=== PATIENT | male | born 1945 | race Caucasian/White ===

== ENCOUNTER → 2016-10-18 | Outpatient (REF) | payer MEDICARE ==
[~2016-10-18] MED LIST: *BLDWK8; /PANT40TA; ALTACE5 PO; ASPI81TA3; AUG875 PO; BABY81CH; CEF; CEFT500T; CIPR250T3; COLA100C2; DITROPAN PO; DITROPAXL5 PO; DOXYCYC100 PO; DRISDOL50 PO; FLAGYL500 PO; GLUC1000; GLUCCOSEAC TOPICAL; GLUCOPH500 PO; GLUCOPH850 PO; HCTZ25 PO; HYDROCHL12 PO; LISI40TA; LISINOPR40 PO; METFORM100 PO; MONOPRIL10; MONOPRIL40 PO; PAXIL10 PO; PROS5TAB; SPORANOX 2 CAPS BID; TESSALO100 PO; VIAGRA100; VICO5TAB; VITAMIN D50000 UNT; [UNRECOGNIZED DRUG - CODE] TOPICAL; [UNRECOGNIZED DRUG - REMARK]
[2016-10-18 12:08] LABS: INR 1.86
[2016-10-18 13:20] LABS: ALBUMIN 4.2 GM/DL (3.2-5.2); ALBUMIN/GLOBULIN RATIO 1.11 (1.00-1.93); ALKALINE PHOSPHATASE 71 U/L (45-117); ALT/SGPT 68 U/L (12-78); ANION GAP 7 MEQ/L (8-16); AST/SGOT 38 U/L (15-37); BILIRUBIN,TOTAL 0.6 MG/DL (0.2-1.0); BLOOD UREA NITROGEN 26 MG/DL (7-18); CALCIUM LEVEL 9.7 MG/DL (8.8-10.2); CARBON DIOXIDE LEVEL 30 MEQ/L (21-32); CHLORIDE LEVEL 100 MEQ/L (98-107); CREATININE FOR GFR 1.13 MG/DL (0.70-1.30); GLOMERULAR FILTRATION RATE > 60.0 (>42); GLUCOSE, FASTING 105 MG/DL (83-110); POTASSIUM SERUM 4.7 MEQ/L (3.5-5.1); SODIUM LEVEL 137 MEQ/L (136-145)
== END ==
LOC: M SFHCPLAZ 08:46
PROVIDERS: ATTEND Nurse Practitioner Family
DX: E11.9 Type 2 diabetes mellitus without complications (principal)

== ENCOUNTER → 2017-02-19 | Outpatient (REF) | payer MEDICARE ==
[~2017-02-19] MED LIST changes: +ALPHTAB PO; +ASPI1TAB PO; +ASPI81TAEC PO; +CALC500T49 PO; +CALC600T68 PO; +COUM10TA PO; +COUM7.5T PO; +DOCU100C16 PO; +LISI-538 PO; +METF-415 PO; +MIRA3350 PO; +MIRA33504 PO; +MOME50SP; +TRAM50TA2 PO; +VITA200016 PO; +VITA500C24 PO; +WARF-21 PO
[2017-02-19 10:59] LABS: INR 2.07
[2017-02-19 12:43] LABS: ALBUMIN 4.2 GM/DL (3.2-5.2); ALKALINE PHOSPHATASE 110 U/L (45-117); ALT/SGPT 133 U/L (12-78); ANION GAP 7 MEQ/L (8-16); AST/SGOT 64 U/L (15-37); BILIRUBIN,TOTAL 0.7 MG/DL (0.2-1.0); BLOOD UREA NITROGEN 20 MG/DL (7-18); CALCIUM LEVEL 9.6 MG/DL (8.8-10.2); CARBON DIOXIDE LEVEL 30 MEQ/L (21-32); CHLORIDE LEVEL 102 MEQ/L (98-107); CHOLESTEROL LEVEL 189 MG/DL (<200); CREATININE FOR GFR 1.04 MG/DL (0.70-1.30); GLOMERULAR FILTRATION RATE > 60.0 (>42); GLUCOSE, FASTING 105 MG/DL (83-110); POTASSIUM SERUM 4.5 MEQ/L (3.5-5.1); SODIUM LEVEL 139 MEQ/L (136-145); TOTAL PROTEIN 8.4 GM/DL (6.4-8.2); TRIGLYCERIDES LEVEL 91 MG/DL (<150)
== END ==
LOC: M SFHCPLAZ 08:00
PROVIDERS: ATTEND Family Medicine
DX: E11.9 Type 2 diabetes mellitus without complications (principal); E78.5 Hyperlipidemia, unspecified; Z51.81 Encounter for therapeutic drug level monitoring; Z79.899 Other long term (current) drug therapy

== ENCOUNTER 2017-02-26 16:04 | Inpatient (IN) | payer MEDICARE ==
[~2017-02-26] VITALS: Ht 172.7 cm; Wt 78.3 kg
[~2017-02-26 16:04] MED LIST changes: -ALPHTAB PO; -ASPI1TAB PO; -ASPI81TAEC PO; -CALC500T49 PO; -CALC600T68 PO; -COUM10TA PO; -COUM7.5T PO; -DOCU100C16 PO; -LISI-538 PO; -METF-415 PO; -MIRA3350 PO; -MIRA33504 PO; -MOME50SP; -TRAM50TA2 PO; -VITA200016 PO; -VITA500C24 PO; -WARF-21 PO
[2017-02-26] MEDS ORDERED: COUM7.5T PO (16:23)
[2017-02-26] MEDS ORDERED: VITA200016 PO (16:23)
[2017-02-26] MEDS ORDERED: LISI-538 PO (16:23)
[2017-02-26] MEDS ORDERED: METF-415 PO (16:23)
[2017-02-26] MEDS ORDERED: COUM10TA PO (16:23)
[2017-02-26] MEDS ORDERED: CALC500T49 PO (16:23)
[2017-02-26] MEDS ORDERED: ALPHTAB PO (16:23)
[2017-02-26] MEDS ORDERED: ASPI1TAB PO (16:23)
[2017-02-26] MEDS ORDERED: MIRA3350 PO (16:23)
[2017-02-26] MEDS ORDERED: VITA500C24 PO (16:23)
[2017-02-26] MEDS ORDERED: MOME50SP (16:23)
[2017-02-26] MEDS ORDERED: ACETAMINOPHEN TAB 650MG DOSE (2X325MG) PO ONE (17:00)
--- NOTE | 2017-02-26 17:27 | REP ---
Right hip two views: There is no fracture or dislocation. Joint space is unremarkable. There is no femoral head deformity. No calcifications. Impression: Negative left hip. Signed by Jeff Moreno MD 02/26/2017 05:15 P
--- NOTE | 2017-02-26 17:49 | REP ---
AP PELVIS, COMPLETE: 02/26/2017. Comparison: CT pelvis 03/31/2009. Left hip series this date. Clinical history: Left buttock and hip pain. Findings: Pelvic ring is intact. The iliac wings, sacral ala and foramina, SI joints and pubic symphysis were unremarkable. Pubic rami are symmetric. The hip joint spaces appear grossly symmetric. There are some degenerative changes, greater at the acetabular roof on the right than left. No gross evidence of a hip fracture. There are degenerative changes with endplate spurs throughout the lower lumbar spine. Impression: 1. Minor degenerative changes lower lumbar spine and bilateral hips, right greater than left. There is no visible fracture, pelvis or hips. Signed by Elkin Duong MD 02/27/2017 08:43 A
--- NOTE | 2017-02-26 17:51 | REP ---
LUMBOSACRAL SPINE COMPLETE: 02/26/2017. Comparison: MRI lumbar spine 06/13/2004. Clinical history: left buttock and hip pain. Five views provided. Pedicles, spinous and transverse processes are intact. There are marginal osteophytes throughout the lumbar and visible lower thoracic spine. There is some facet arthropathy at the L4-5 and L5, S1, less at the levels above. There is no spondylolysis or spondylolisthesis. Bridging syndesmophytes seen on the lateral view. Minor anterior wedging at L1 with smooth bridging osteophyte. This is not acute compression. Vascular calcifications of the aorta without aneurysm. Loss of lordosis noted. Impression: 1. Diffuse degenerative disc disease with bridging osteophytes and syndesmophytes and some minor old wedging L1 superior endplate with flowing or bridging osteophytes indicating this is not an acute compression. 2. Loss of lordosis may reflect spasm or positioning. There is facet arthropathy L4-5, L5-S1. 3. No destructive lesions or other acute finding. Signed by Elkin Duong MD 02/27/2017 08:43 A
[2017-02-26 19:24] LABS: MEAN CORPUSCULAR HEMOGLOBIN 31.8 pg (27.0-33.0); MEAN CORPUSCULAR HGB CONC 34.5 g/dl (32.0-36.5); MEAN CORPUSCULAR VOLUME 92.3 fl (80.0-96.0); RED CELL DISTRIBUTION WIDTH 12.9 % (11.5-14.5); WHITE BLOOD COUNT 5.9 K/mm3 (4.0-10.0)
[2017-02-26 19:47] LABS: BASOPHILS 1 % (0-4)
[2017-02-26 19:50] LABS: ANION GAP 6 MEQ/L (8-16); BLOOD UREA NITROGEN 18 MG/DL (7-18); CALCIUM LEVEL 9.5 MG/DL (8.8-10.2); CARBON DIOXIDE LEVEL 31 MEQ/L (21-32); CHLORIDE LEVEL 102 MEQ/L (98-107); CREATININE FOR GFR 0.95 MG/DL (0.70-1.30); GLOMERULAR FILTRATION RATE > 60.0 (>42); GLUCOSE, FASTING 84 MG/DL (83-110); POTASSIUM SERUM 4.1 MEQ/L (3.5-5.1); SODIUM LEVEL 139 MEQ/L (136-145)
[2017-02-26] MEDS ORDERED: DOCU100C16 PO (20:38)
[2017-02-26] MEDS ORDERED: WARF-21 PO (20:38)
[2017-02-26] MEDS ORDERED: ASPI81TAEC PO (20:38)
[2017-02-26] MEDS ORDERED: MIRA33504 PO (20:38)
[2017-02-26] MEDS ORDERED: CALC600T68 PO (20:38)
[2017-02-26] MEDS ORDERED: raNITIdine SYRUP 150 MG/10 ML UDC GT SCH (21:00)
[2017-02-26] MEDS ORDERED: IBUPROFEN 400 MG TAB PO PRN (21:15)
[2017-02-26 22:15] VITALS: BP 132/68
[2017-02-26] MEDS ORDERED: MIRALAX *UNIT DOSE* 17GM PACKET PO PRN (22:45)
[2017-02-26] MEDS ORDERED: FLUTICASONE PROP 0.05% NASAL SPRAY 16 GM (FLONASE) PRN (22:45)
[2017-02-26 23:27] LABS: INR 2.09
[2017-02-26] MEDS: ASPIRIN 81 MG ENTERIC TAB PO SCH (23:58)
[2017-02-26] MEDS: DOCUSATE SODIUM 100 MG CAP PO SCH (23:58)
[2017-02-26] MEDS: WARFARIN SOD 7.5 MG TAB PO SCH (23:58)
[2017-02-26] MEDS: VITAMIN D 1,000 INTERNATIONAL UNITS TABLET PO SCH (23:59)
[2017-02-27 06:00] VITALS: BP 129/69
[2017-02-27 07:08] LABS: BASO % 0.7 % (0.0-1.0); EOS # 0.1 K/mm3 (0.0-0.50); EOS % 1.8 % (0.0-3.0); LARGE UNSTAINED CELL # 0.1 K/mm3 (0.0-0.4); LARGE UNSTAINED CELL % 2.3 % (0.0-4.0); LYMPH # 1.4 K/mm3 (1.5-4.5); LYMPH % 28.3 % (24.0-44.0); MEAN CORPUSCULAR HEMOGLOBIN 31.5 pg (27.0-33.0); MEAN CORPUSCULAR HGB CONC 34.6 g/dl (32.0-36.5); MEAN CORPUSCULAR VOLUME 91.3 fl (80.0-96.0); MONO # 0.3 K/mm3 (0.0-0.8); MONO % 6.8 % (0.0-5.0); NEUTROPHILS # 2.7 K/mm3 (1.8-7.7); NEUTROPHILS % 60.1 % (36.0-66.0); PLATELET COUNT, AUTOMATED 264 k/mm3 (150-450); RED CELL DISTRIBUTION WIDTH 13.2 % (11.5-14.5); WHITE BLOOD COUNT 4.5 K/mm3 (4.0-10.0)
[2017-02-27 07:13] LABS: INR 2.05
[2017-02-27 07:25] LABS: ALBUMIN 3.5 GM/DL (3.2-5.2); ALBUMIN/GLOBULIN RATIO 0.88 (1.00-1.93); ALKALINE PHOSPHATASE 95 U/L (45-117); ALT/SGPT 108 U/L (12-78); ANION GAP 6 MEQ/L (8-16); AST/SGOT 54 U/L (15-37); BILIRUBIN,TOTAL 0.6 MG/DL (0.2-1.0); BLOOD UREA NITROGEN 22 MG/DL (7-18); CALCIUM LEVEL 8.9 MG/DL (8.8-10.2); CARBON DIOXIDE LEVEL 30 MEQ/L (21-32); CHLORIDE LEVEL 105 MEQ/L (98-107); CREATININE FOR GFR 0.97 MG/DL (0.70-1.30); GLOMERULAR FILTRATION RATE > 60.0 (>42); GLUCOSE, FASTING 112 MG/DL (83-110); POTASSIUM SERUM 4.7 MEQ/L (3.5-5.1); SODIUM LEVEL 141 MEQ/L (136-145); TOTAL PROTEIN 7.5 GM/DL (6.4-8.2)
[2017-02-27] MEDS ORDERED: traMADol 50 MG TAB PO PRN (08:30)
[2017-02-27] MEDS ORDERED: CALCIUM/VITAMIN D 500 MG TAB PO SCH (09:00)
[2017-02-27] MEDS: DOCUSATE SODIUM 100 MG CAP PO SCH ×2 (09:21→20:49)
[2017-02-27] MEDS: LISINOPRIL 20 MG TAB PO SCH (09:21)
[2017-02-27] MEDS: ASCORBIC ACID 500 MG TAB PO SCH (09:22)
[2017-02-27] MEDS ORDERED: ACETAMINOPHEN TAB 650MG DOSE (2X325MG) PO ONE (10:15)
[2017-02-27] MEDS: CALCIUM/VITAMIN D 500 MG TAB PO SCH (10:37)
--- NOTE | 2017-02-27 12:58 | IPNPDOC ---
Subjective Date Seen The patient was seen on 02/27/17. Subjective Chief Complaint/HPI The patient is a 71-year-old male admitted with a reason for visit of Hip Pain. Constitutional: Denies: Malaise, Night Sweats ENT: Denies: Head Aches Pulmonary: Denies: Dyspnea, Cough, Pleuritic Chest Pain Cardiovascular: Denies: Palpitations, Orthopnea Gastrointestinal: Denies: Nausea, Vomiting, Abdominal Pain Genitourinary: Denies: Frequency Neurological: Reports: Other Symptoms (chronic weakness and paresthesias associated with MS (diagnosed in late )) Objective Physical Examination General Exam: Positive: Alert, Cooperative Eye Exam: Positive: PERRLA Chest Exam: Positive: Clear to auscultation, Normal air movement Heart Exam: Positive: Rate Normal, Regular Rhythm Extremity Exam: Positive: Other (tender to palpation posterio left greater trochanter. hip flexion with knee flexed and rotation are tolerated w/o difficulty as is abduction. adduction across midline triggers mild discomfort in tender area. strength reduced.) Psych Exam: Positive: Mental status NL, Mood NL Assessment /Plan Problems (1) Hip pain Status: Acute Response to Treatment: Stable Problem Specific Plan: Consult Specialist Problem Text: request MRI of LS spine, consult Ortho; increase analgesic. not a candidate for NSAID due to anticoagulant use. 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 Response to Treatment: Stable Problem Specific Plan: Monitor Clinically (4) Diabetes mellitus Status: Chronic Response to Treatment: Stable Problem Specific Plan: Monitor Clinically (5) Multiple sclerosis Status: Chronic Response to Treatment: Stable Problem Specific Plan: Monitor Clinically Plan/VTE VTE Prophylaxis Ordered?: Yes Plan Medications: Increase Pain Meds Diagnostics: MRI VS, I&O, 24H, Fishbone Vital Signs/I&O Vital Signs Date Time Temp Pulse Resp B/P (MAP) Pulse Ox O2 Delivery O2 Flow Rate FiO2 02/27/17 09:52 18 02/27/17 09:21 129/69 02/27/17 06:00 97.7 63 98 Room Air I&O- Last 24 Hours up to 6 AM 02/27/17 06:00 Intake Total 120 ml Balance 120 ml Laboratory Data 24H LABS Laboratory Tests 2 02/26/17 19:01: Neutrophils 62, Lymphocytes (Manual) 27, Monocytes (Manual) 3, Basophils (Manual ) 1, Atypical Lymphocytes 7H, Platelet Estimate NORMAL, Red Blood Cell Morphology NORMAL, Anion Gap 6L, Glomerular Filtration Rate > 60.0, Blood Urea Nitrogen 18, Creatinine 0.95, Sodium Level 139, Potassium Level 4.1, Chloride Level 102, Carbon Dioxide Level 31, Calcium Level 9.5 02/26/17 23:08: Prothrombin Time 24.2H, Prothromb Time International Ratio 2.09 02/27/17 06:46: Anion Gap 6L, Glomerular Filtration Rate > 60.0, Blood Urea Nitrogen 22H, Creatinine 0.97, Sodium Level 141, Potassium Level 4.7, Chloride Level 105, Carbon Dioxide Level 30, Calcium Level 8.9, Prothrombin Time 23.8H, Prothromb Time International Ratio 2.05, White Blood Count 4.5, Red Blood Count 4.82, Hemoglobin 15.2, Hematocrit 44.0, Mean Corpuscular Volume 91.3, Mean Corpuscular Hemoglobin 31.5, Mean Corpuscular Hemoglobin Concent 34.6, Red Cell Distribution Width 13.2, Platelet Count 264, Neutrophils (%) (Auto) 60.1, Lymphocytes (%) (Auto) 28.3, Monocytes (%) (Auto) 6.8H, Eosinophils (%) (Auto) 1.8, Basophils (%) (Auto) 0.7, Neutrophils # (Auto) 2.7, Lymphocytes # (Auto) 1.4L, Monocytes # (Auto) 0.3, Eosinophils # (Auto) 0.1, Basophils # (Auto) 0.0, Large Unclassified Cells % 2.3, Large Unclassified Cells # 0.1, Aspartate Amino Transf (AST/SGOT) 54H, Alanine Aminotransferase (ALT/SGPT) 108H, Alkaline Phosphatase 95, Total Bilirubin 0.6, Total Protein 7.5, Albumin 3.5, Albumin/ Globulin Ratio 0.88L CBC/BMP Laboratory Tests 02/26/17 19:01 Calcium Level 9.5 02/27/17 06:46 Calcium Level 8.9, Red Blood Count 4.82, Mean Corpuscular Volume 91.3, Mean Corpuscular Hemoglobin 31.5, Mean Corpuscular Hemoglobin Concent 34.6, Red Cell Distribution Width 13.2, Neutrophils (%) (Auto) 60.1, Lymphocytes (%) (Auto) 28.3, Monocytes (%) (Auto) 6.8 H, Eosinophils (%) (Auto) 1.8, Basophils (%) ( Auto) 0.7, Neutrophils # (Auto) 2.7, Lymphocytes # (Auto) 1.4 L, Monocytes # ( Auto) 0.3, Eosinophils # (Auto) 0.1, Basophils # (Auto) 0.0, Aspartate Amino Transf (AST/SGOT) 54 H, Alanine Aminotransferase (ALT/SGPT) 108 H, Alkaline Phosphatase 95, Total Bilirubin 0.6, Total Protein 7.5, Albumin 3.5 Damien Garvey MD Feb 27, 2017 12:58
--- NOTE | 2017-02-27 13:16 | HPE ---
DATE OF ADMISSION: 02/26/2017 Most of the history is obtained from the patient who is a good historian and his family is at bedside. CHIEF COMPLAINT: This is a 71-year-old male who comes in complaining of severe 2 days of left-sided hip pain, which is new and slowly worsening. The patient is not able to walk today. Previously was able to walk with a walker and now only able to use his wheelchair. The patient denies any back pain. He has not had a previous surgery there. He stated the pain is sharp and mainly when he tries to walk, at rest is not present and can be as severe as 9/10. He denies any swelling or warmth in that area. Denies any trauma to that area or any fall. He has not had this in the past and has no history of previous gout or any other rheumatological disorder. The patient states in the past he was told that he has osteoarthritis in both hips. He denies any pain in the spine area or any swelling there as well. Past medical history is significant for multiple sclerosis, coronary artery disease, diabetes mellitus type 2, hypertension, deep venous thrombosis (DVT) in 2008 for which she takes Coumadin, and non-alcohol steatohepatitis. Current medications include: - metformin 1000 every evening - lipoic acid 200 mg twice daily He also takes: - vitamin C 500 mg daily - aspirin 81 mg daily - calcium and vitamin D combination pill one tablet daily - Colace 100 mg twice daily - lisinopril 20 mg daily - MiraLAX 17 grams once daily - vitamin D 2000 units every evening - Coumadin 7.5 mg six times weekly and 11.25 mg once weekly ALLERGIES: He has an allergy to STATINS, which he says makes him extremely weak, as well as PRILOSEC, which does the same thing. SOCIAL HISTORY: He denies any tobacco, ethanol or drug use. Previous surgeries include TURP. Family history is significant for diabetes in his sister and brothers as well. REVIEW OF SYSTEMS: Other than the above mentioned, he denies any other constitutional symptoms or any cardiopulmonary, digestive, endocrine, hematological, psychiatric, neurological, musculoskeletal or dermatological disease. PHYSICAL EXAMINATION: Pulse is 86. Blood pressure 133/79. Breathing at 16. Afebrile. GENERAL APPEARANCE: Well groomed, 71-year-old white male, currently laying in bed, in mild distress and pain. PSYCHIATRIC EXAM: Alert, oriented times two, with normal affect. SKIN EXAM: Intact rash is noted. The hip area is clean without any erythema or swelling. EYE EXAM: Pupils equal round and reactive to light, without icterus. OROPHARYNGEAL EXAM: No oropharyngeal erythema. Dentition in good condition. NECK EXAM: No thyromegaly. Trachea midline. Neck is supple. LYMPHATICS EXAM: No cervical or axillary lymphadenopathy. CARDIAC EXAM: Regular rate and rhythm. No rubs, murmurs or gallops. No jugular venous distention (JVD). No edema. RESPIRATORY EXAM: Clear to auscultation bilaterally with good effort. ABDOMINAL EXAM: Nondistended. Nontender. No hepatomegaly or masses palpated . PERIPHERAL EXAM: The patient does have bilateral leg braces on the area of the left hip. The patient has no swelling or erythema or tenderness. He does point to tenderness in the left gluteal area above gluteal muscle there. On labs, the patient's white cell count is 6,000, hematocrit of 48, platelet count of 311 with an MCV of 930, RDW of 13. Chemistry is essentially normal with a BUN of 18, creatinine of 0.95. The patient had imaging done. Lumbar spine x-ray shows: 1. Diffuse degenerative disc disease with bridging osteophytes and some minor old wedging in L1 superior endplate with flowing or bridging osteophytes indicating this is not an acute compression. 2. Loss of lordosis, which may reflect spasm or positioning, and there is facet arthropathy in L4 and L5 as well as L5-S1. There are no destructive lesions or other acute findings. The patient also had a hip x-ray, which is described as negative, and a pelvic x-ray, which shows minor degenerative changes of the lower lumbar spine and bilateral hips, right greater than left. No acute fractures. ASSESSMENT: This is a 71-year-old male now presenting with severe pain. By physical exam and history, the patient likely has severe sciatica but is not able to now ambulate around the home as he used to. I do agree at this time on admission to the observation unit for pain control as well as physical and occupational therapy evaluation to assist whether the patient may benefit from additional therapy. PROBLEMS: 1. Severe left-sided hip pain: Agree with admission to the medical-surgical unit, will keep the patient on observation at this time, physical and occupational therapy will be obtained, will place the patient on ibuprofen every 6 hours as needed for pain and put him on proton pump inhibitor (PPI) prophylaxis at this time as well, the patient's pain is likely severe sciatica on the left side possibly secondary to degenerative disc disease in spine, will reassess in the a.m. 2. Multiple sclerosis: The patient will have a physical therapy evaluation here and will continue his usual outpatient medicine. 3. Diabetes mellitus type 2: The patient will continue his usual medication regimen. 4. Hypertension: Currently stable Will continue to monitor. 5. Deep venous thrombosis: The patient is usually on Coumadin therapy. Last time was checked was normal. This was earlier in the month but will check a repeat international normalized ratio (INR) in the a.m. at this time. For DVT prophylaxis, the patient currently is already taking Coumadin as blood thinner and diet will be a diabetic diet.
[2017-02-27] MEDS: ACETAMINOPHEN TAB 650MG DOSE (2X325MG) PO PRN ×2 (16:42→20:49)
[2017-02-27] MEDS: VITAMIN D 1,000 INTERNATIONAL UNITS TABLET PO SCH (16:42)
[2017-02-27] MEDS: WARFARIN SOD 7.5 MG TAB PO SCH (16:43)
[2017-02-27] MEDS: traMADol 50 MG TAB PO PRN ×2 (16:43→20:48)
[2017-02-27] MEDS: ASPIRIN 81 MG ENTERIC TAB PO SCH (16:43)
[2017-02-27 22:00] VITALS: BP 135/73
[2017-02-28 06:00] VITALS: BP 118/75
[2017-02-28] MEDS: traMADol 50 MG TAB PO PRN ×3 (06:00→21:16)
[2017-02-28] MEDS: ACETAMINOPHEN TAB 650MG DOSE (2X325MG) PO PRN ×3 (06:01→21:16)
[2017-02-28 07:02] LABS: TOTAL PROTEIN 7.4 GM/DL (6.4-8.2)
--- NOTE | 2017-02-28 09:12 | IPNPDOC ---
Subjective Date Seen The patient was seen on 02/28/17. Subjective Chief Complaint/HPI The patient is a 71-year-old male admitted with a reason for visit of Hip Pain. Constitutional: Denies: Malaise ENT: Denies: Head Aches, Dysphagia Pulmonary: Denies: Dyspnea, Cough Cardiovascular: Denies: Chest Pain, Palpitations, Orthopnea, Paroxysmal Noc. Dyspnea Gastrointestinal: Denies: Nausea, Vomiting Genitourinary: Denies: Dysuria Hematologic: Denies: Petecchia Musculoskeletal: Reports: Leg Pain (pain is better, essentially resolved. He credits Anointing by .) Neurological: Denies: Weakness, Numbness Objective Physical Examination General Exam: Positive: Alert, Cooperative, No Acute Distress Eye Exam: Positive: PERRLA Neck Exam: Positive: Supple Chest Exam: Positive: Clear to auscultation, Normal air movement Heart Exam: Positive: Rate Normal, Regular Rhythm Extremity Exam: Negative: Tenderness Psych Exam: Positive: Mental status NL, Mood NL Assessment /Plan Problems (1) Hip pain Status: Acute Response to Treatment: Stable Problem Specific Plan: Consult Specialist Problem Text: 02/28/17: awaiting MRI of hip and LS spine. Dr. Brice aware and will see patient after imaging completed. Pain free at this point, even when up. request MRI of LS spine, consult Ortho; increase analgesic. not a candidate for NSAID due to anticoagulant use. 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 likely would benefit from home PT) VS, I&O, 24H, Fishbone Vital Signs/I&O Vital Signs Date Time Temp Pulse Resp B/P (MAP) Pulse Ox O2 Delivery O2 Flow Rate FiO2 02/28/17 06:30 18 02/28/17 06:00 97.9 77 118/75 (89) 96 Room Air I&O- Last 24 Hours up to 6 AM 02/28/17 06:00 Intake Total 1380 ml Output Total 1600 ml Balance -220 ml Laboratory Data 24H LABS Laboratory Tests 2 02/28/17 06:26: Total Protein (PEP) 7.4 Damien Garvey MD Feb 28, 2017 09:12
[2017-02-28] MEDS: CALCIUM/VITAMIN D 500 MG TAB PO SCH (10:19)
[2017-02-28] MEDS: LISINOPRIL 20 MG TAB PO SCH (10:19)
[2017-02-28] MEDS: DOCUSATE SODIUM 100 MG CAP PO SCH ×2 (10:19→21:15)
[2017-02-28] MEDS: ASCORBIC ACID 500 MG TAB PO SCH (10:19)
[2017-02-28 14:00] VITALS: BP 120/73
--- NOTE | 2017-02-28 14:37 | REP ---
MRI LUMBAR SPINE WITHOUT CONTRAST: HISTORY: Left hip and radicular pain and back pain. Comparison radiographs of the lumbar spine are from 02/26/2017. There is a comparison MRI study available on this patient from 06/13/2004. TECHNIQUE: Sagittal and axial T1- and T2-weighted scans are acquired in the usual fashion with and without fat saturation. Sequences include spin echo, turbo spin-echo, and STIR imaging sequences. MRI FINDINGS: There is an old mild wedge compression deformity at the L1 vertebral body. This is a new finding from the 2004 prior study, but normal T1- and T2-weighted signal intensity indicate an old healed compression. There is also slight collapse of the superior endplate of L4, but this is unchanged from 2004 and is also old. There is fairly advanced diffuse degenerative disc disease throughout the visualized lower thoracic and all of the lumbar disc levels. There is some straightening of the normal lumbar lordosis. Normal caliber aorta is seen. The conus medullaris is normal in position and appearance at T12-L1. There is a Schmorl node at the inferior endplate of L2. This is unchanged from 2004. At L1-2, axial and sagittal images show no significant abnormality. At L2-3, there is minimal diffuse disc bulging effacing the ventral subarachnoid space. No central canal stenosis or neural foraminal narrowing is seen, however. At L3-4, there is also central diffuse disc bulging. This indents the ventral subarachnoid space. Canal size at L3-4 is borderline. There is mild ligamentum flavum and facet hypertrophy. At L4-5, there is moderate diffuse disc bulging. There is mild central canal stenosis due to disc bulging, developmentally short pedicles, and mild facet hypertrophy. There is moderate left and mild right-sided neural foraminal narrowing due to facet hypertrophy and disc bulging. At L5-S1, there is mild facet hypertrophy bilaterally. Mild central disc bulging is seen. No neural foraminal lesion or central canal stenosis seen. IMPRESSION: Degenerative spondylosis changes. Mild central canal stenosis and bilateral neural foraminal narrowing at L4-5 slightly more prominent than on the prior study but not new. Interval development of a chronic mild wedging deformity at L1. Signed by Carroll Muniz MD 02/28/2017 04:43 P
--- NOTE | 2017-02-28 14:41 | REP ---
MRI LEFT HIP: TECHNIQUE: Coronal T1, STIR through the pelvis, T2 fat sat, left hip all three planes, axial oblique proton density fat sat left hip. The visualized osseous structures demonstrate normal marrow signal. There is no bone marrow edema or occult fracture. There is no evidence of avascular necrosis. There does appear to be a tear of the anterior-superior aspect of the left hip labrum. There is no paralabral cyst. There is no joint effusion. No abnormal signal is seen in the surrounding soft tissues. The visualized intrapelvic structures are unremarkable. However, there does appear to be a large left inguinal hernia containing bowel extending toward the scrotum. IMPRESSION: No occult fracture or avascular necrosis. There does appear to be a tear of the anterior-superior aspect of the left hip labrum. In addition, there is a large left inguinal hernia containing bowel loops. Signed by Jeff Lema MD 02/28/2017 04:47 P
[2017-02-28] MEDS: ASPIRIN 81 MG ENTERIC TAB PO SCH (17:08)
[2017-02-28] MEDS: VITAMIN D 1,000 INTERNATIONAL UNITS TABLET PO SCH (17:08)
[2017-02-28] MEDS: WARFARIN SOD 7.5 MG TAB PO SCH (17:09)
[2017-02-28 22:00] VITALS: BP 118/69
[2017-03-01 06:00] VITALS: BP 125/75
[2017-03-01 06:40] LABS: MEAN CORPUSCULAR HEMOGLOBIN 31.6 pg (27.0-33.0); MEAN CORPUSCULAR HGB CONC 34.1 g/dl (32.0-36.5); MEAN CORPUSCULAR VOLUME 92.7 fl (80.0-96.0); WHITE BLOOD COUNT 4.7 K/mm3 (4.0-10.0)
[2017-03-01 06:53] LABS: ALBUMIN 3.3 GM/DL (3.2-5.2); ALBUMIN/GLOBULIN RATIO 0.83 (1.00-1.93); ALKALINE PHOSPHATASE 93 U/L (45-117); ALT/SGPT 123 U/L (12-78); ANION GAP 6 MEQ/L (8-16); AST/SGOT 65 U/L (15-37); BILIRUBIN,TOTAL 0.2 MG/DL (0.2-1.0); BLOOD UREA NITROGEN 24 MG/DL (7-18); CALCIUM LEVEL 8.6 MG/DL (8.8-10.2); CARBON DIOXIDE LEVEL 29 MEQ/L (21-32); CHLORIDE LEVEL 106 MEQ/L (98-107); CREATININE FOR GFR 1.07 MG/DL (0.70-1.30); GLOMERULAR FILTRATION RATE > 60.0 (>42); GLUCOSE, FASTING 134 MG/DL (83-110); POTASSIUM SERUM 4.6 MEQ/L (3.5-5.1); SODIUM LEVEL 141 MEQ/L (136-145); TOTAL PROTEIN 7.3 GM/DL (6.4-8.2)
[2017-03-01 08:38] VITALS: BP 125/75
[2017-03-01] MEDS: CALCIUM/VITAMIN D 500 MG TAB PO SCH (08:38)
[2017-03-01] MEDS: DOCUSATE SODIUM 100 MG CAP PO SCH (08:38)
[2017-03-01] MEDS: LISINOPRIL 20 MG TAB PO SCH (08:38)
[2017-03-01] MEDS: ASCORBIC ACID 500 MG TAB PO SCH (08:38)
[2017-03-01] MEDS: traMADol 50 MG TAB PO PRN ×2 (11:14→16:36)
[2017-03-01] MEDS: ACETAMINOPHEN TAB 650MG DOSE (2X325MG) PO PRN ×3 (11:14→17:48)
[2017-03-01 14:00] VITALS: BP 133/77
[2017-03-01] MEDS ORDERED: TRAM50TA2 PO (15:21)
[2017-03-01] MEDS ORDERED: WARFARIN SOD 7.5 MG TAB PO SCH (17:00)
[2017-03-03 09:51] LABS: ALBUMIN % 54.9 % (55.8-66.1); GAMMA GLOBULIN % 17.1 % (11.1-18.8)
[2017-03-03 09:52] LABS: ALBUMIN 4.06 GM/DL (3.29-5.55)
--- NOTE | 2017-03-03 16:56 | DSES ---
DATE OF ADMISSION: 02/28/2017 DATE OF DISCHARGE: 03/01/2017 DIAGNOSES: Labral tear of left hip with intractable left hip pain. Multiple sclerosis. Diabetes mellitus. History of arterial embolism and thrombosis of lower extremity. Chronic anticoagulant usage. BRIEF HISTORY AND PHYSICAL: This is a 71-year-old male admitted because of left hip pain which started several days prior and then seemed to get worse, particularly with activity and this was not being relieved with Tylenol or limitation of walking in the home setting. He had a prior history of multiple sclerosis and chronic anticoagulant usage due to thrombosis in his legs. He also is diabetic. He normally sees Michelle Pimentel at [facility] in [place] and had previously seen Dr. Carrero. His initial examination showed a blood pressure of 133/79, pulse 79 and regular. He was alert, oriented, normal affect. He had bilateral leg braces on. He pointed to an area in the left gluteal area as his most highest area of pain. No indication on his admission examination of whether there was any spasticity, pain on range of motion or limitation of range of motion. LABORATORY DATA: He had hemoglobins ranging from 16.5 to 14.9. His white counts remained between 4500 and 5900. He had 62 neutrophils, 27 lymphocytes 3 monocytes, 7 atypical lymphocytes. Chemistry profile remarkable for liver function abnormalities with AST between 54 and 65, ALT of 108 to 123 with alkaline phosphatase normal at 95 and serum protein electrophoresis was pending at the time of discharge. His BUN was 18 on admission, 24 at discharge, creatinine 0.95 on admission and 1.07 at discharge. MRI of his spine showed some degenerative changes of lower lumbar area with L4-5 foraminal narrowing and some lumbar stenosis. Left hip showed a tear of the anterior superior aspect of the left hip labrum. There was also a large left inguinal hernia. COURSE IN THE FACILITY: The patient was admitted to the hospital. Laboratory studies were obtained. His initial hip x-rays were negative and lumbar spine x-rays showing no destructive changes but diffuse degenerative disc disease with bridging osteophytes and syndesmophytes. He was kept on his usual medications including his warfarin. His INR was 2.09 and 2.05. He was given some tramadol for pain. Initially he had pain as high as 7, subsequently down to 3. He seemed quite comfortable on 02/28/2017 and he was seen on 03/01/2017 and he reported that he did have some discomfort on ambulation, but was quite comfortable at rest and pain seemed to be readily relieved with tramadol. His discharge examination showed that he had some mild dysarthria and I thought he had spasticity in his legs bilaterally. He seemed to have bilateral positive Babinski signs, right more so than the left. He had good range of motion of both hips without any pain being elicited. His lungs were clear. His heart had a regular rhythm without any murmur, click or gallop. Abdomen was soft and nontender without any masses or organomegaly. Bowel sounds were active. He had really equivocal tenderness of the lateral hip and the anterior hip. There was no calf tenderness. Recommendations were as follows: He is to ambulate with a rolling walker. He is to limit his ambulation for the next week or so. He is continue all his regular medications including the warfarin 11.25 mg of Saturdays and 7.5 mg all other days, Tylenol 650 mg every 4 hours as needed. He was given a prescription for #20 tramadol 50 mg to take one every 4 hours as needed for moderate pain with a maximum daily dose of four, vitamin C 500 mg daily and lisinopril 20 mg daily, calcium with vitamin D 500 mg daily, Flonase one spray both nostrils as needed for nasal congestion, MiraLAX one packet daily for constipation, Colace 100 mg twice a day, aspirin 81 mg daily, vitamin D 2000 units daily. He should follow up in the office with his primary provider, who is Michelle Pimentel. Recommend orthopedic followup if he has continued left hip pain. There was an orthopedic consult discussed while he was in the hospital. The consumer services consultant never did see the patient but did recommend first that the MRIs be obtained. cc: Michelle Pimentel [facility], [facility] . [facility] CENTERHeidi
== END 2017-03-01 17:40 | disposition home or self-care (01) | DRG 538 ==
LOC: M ED 16:04 → UNDOADMOB 19:33 → M ED INP 19:33 → M MS5PR 22:00 → OBSVTOIN 02-28 09:13
PROVIDERS: ADMIT Internal Medicine; ATTEND Family Medicine
DX: S73.192A Other sprain of left hip, initial encounter (principal); G35 Multiple sclerosis; E11.9 Type 2 diabetes mellitus without complications; Z86.718 Personal history of other venous thrombosis and embolism; Z79.01 Long term (current) use of anticoagulants; Z79.84 Long term (current) use of oral hypoglycemic drugs; Z79.82 Long term (current) use of aspirin; Z88.8 Allergy status to other drugs, medicaments and biological substances; I10 Essential (primary) hypertension; K40.90 Unilateral inguinal hernia, without obstruction or gangrene, not specified as recurrent; X58.XXXA Exposure to other specified factors, initial encounter; Y92.9 Unspecified place or not applicable; Y93.9 Activity, unspecified; Y99.9 Unspecified external cause status

== ENCOUNTER → 2017-06-13 | Outpatient (REF) | payer MEDICARE ==
[~2017-06-13] MED LIST changes: +ALPHTAB PO; +ASPI1TAB PO; +ASPI81TAEC PO; +CALC500T49 PO; +CALC600T68 PO; +COUM10TA PO; +COUM7.5T PO; +DOCU100C16 PO; +LISI-538 PO; +METF-415 PO; +MIRA3350 PO; +MIRA33504 PO; +MOME50SP; +TRAM50TA2 PO; +VITA200016 PO; +VITA500C24 PO; +WARF-21 PO
[2017-06-13 11:36] LABS: MEAN CORPUSCULAR HEMOGLOBIN 30.8 pg (27.0-33.0); MEAN CORPUSCULAR HGB CONC 33.1 g/dl (32.0-36.5); MEAN CORPUSCULAR VOLUME 93.1 fl (80.0-96.0); PLATELET COUNT, AUTOMATED 349 10^3/uL (150-450); RED CELL DISTRIBUTION WIDTH 12.5 % (11.5-14.5); WHITE BLOOD COUNT 5.9 10^3/uL (4.0-10.0)
[2017-06-13 12:14] LABS: ALBUMIN 3.9 GM/DL (3.2-5.2); ALBUMIN/GLOBULIN RATIO 0.81 (1.00-1.93); ALKALINE PHOSPHATASE 130 U/L (45-117); ALT/SGPT 123 U/L (12-78); ANION GAP 6 MEQ/L (8-16); AST/SGOT 69 U/L (7-37); BILIRUBIN,TOTAL 0.3 MG/DL (0.2-1.0); BLOOD UREA NITROGEN 28 MG/DL (7-18); CARBON DIOXIDE LEVEL 29 MEQ/L (21-32); CHLORIDE LEVEL 105 MEQ/L (98-107); CREATININE FOR GFR 1.07 MG/DL (0.70-1.30); FREE T4 1.09 NG/DL (0.76-1.46); GLOMERULAR FILTRATION RATE > 60.0 (>42); GLUCOSE, FASTING 112 MG/DL (83-110); SODIUM LEVEL 140 MEQ/L (136-145); TOTAL PROTEIN 8.7 GM/DL (6.4-8.2)
== END ==
LOC: M SHH 11:24
PROVIDERS: ATTEND Family Medicine
DX: E11.9 Type 2 diabetes mellitus without complications (principal); Z79.01 Long term (current) use of anticoagulants; E78.5 Hyperlipidemia, unspecified

== ENCOUNTER → 2017-07-08 | Outpatient (REF) | payer MEDICARE ==
[2017-07-08 17:25] LABS: INR 1.92
== END ==
LOC: M LAB REF 17:07
PROVIDERS: ATTEND Family Medicine
DX: Z79.01 Long term (current) use of anticoagulants (principal)

== ENCOUNTER → 2017-08-06 | Outpatient (REF) | payer MEDICARE ==
[2017-08-06 16:33] LABS: INR 1.75
== END ==
LOC: M SHH 16:28
DX: Z51.81 Encounter for therapeutic drug level monitoring (principal); Z79.01 Long term (current) use of anticoagulants
CPT/HCPCS: 85610

== ENCOUNTER → 2017-09-10 | Outpatient (REF) | payer MEDICARE ==
[2017-09-10 15:42] LABS: INR 1.98; PROTHROMBIN TIME 23.2 SECONDS (12.4-14.5)
== END ==
LOC: M SHH 14:58
DX: Z51.81 Encounter for therapeutic drug level monitoring (principal); Z79.01 Long term (current) use of anticoagulants
CPT/HCPCS: 85610

== ENCOUNTER → 2017-09-16 | Outpatient (REF) | payer MEDICARE ==
[2017-09-16 14:17] LABS: INR 1.93; PROTHROMBIN TIME 22.7 SECONDS (12.4-14.5)
== END ==
LOC: M SHH 13:43
DX: Z51.81 Encounter for therapeutic drug level monitoring (principal); Z79.01 Long term (current) use of anticoagulants
CPT/HCPCS: 85610

== ENCOUNTER → 2017-09-22 | Outpatient (REF) | payer MEDICARE ==
[2017-09-22 13:14] LABS: PROTHROMBIN TIME 26.1 SECONDS (12.4-14.5)
== END ==
LOC: M SHH 12:47
DX: Z79.01 Long term (current) use of anticoagulants (principal)
CPT/HCPCS: 85610

== ENCOUNTER → 2017-10-01 | Outpatient (REF) | payer MEDICARE ==
[2017-10-01 09:58] LABS: HEMATOCRIT 45.9 % (42.0-52.0); HEMOGLOBIN 15.5 g/dl (14.0-18.0); MEAN CORPUSCULAR HEMOGLOBIN 31.3 pg (27.0-33.0); MEAN CORPUSCULAR HGB CONC 33.8 g/dl (32.0-36.5); MEAN CORPUSCULAR VOLUME 92.5 fl (80.0-96.0); PLATELET COUNT, AUTOMATED 328 10^3/uL (150-450); RED BLOOD COUNT 4.96 10^6/uL (4.30-6.10); RED CELL DISTRIBUTION WIDTH 12.6 % (11.5-14.5); WHITE BLOOD COUNT 5.5 10^3/uL (4.0-10.0)
[2017-10-01 10:12] LABS: ALBUMIN 3.8 GM/DL (3.2-5.2); ALBUMIN/GLOBULIN RATIO 0.78 (1.00-1.93); ALKALINE PHOSPHATASE 191 U/L (45-117); ALT/SGPT 132 U/L (12-78); ANION GAP 5 MEQ/L (8-16); AST/SGOT 56 U/L (7-37); BILIRUBIN,TOTAL 0.7 MG/DL (0.2-1.0); BLOOD UREA NITROGEN 21 MG/DL (7-18); CALCIUM LEVEL 9.2 MG/DL (8.8-10.2); CARBON DIOXIDE LEVEL 31 MEQ/L (21-32); CHLORIDE LEVEL 102 MEQ/L (98-107); CHOLESTEROL LEVEL 215 MG/DL (<200); CHOLESTEROL RISK RATIO 3.706 (<5); CREATININE FOR GFR 1.06 MG/DL (0.70-1.30); GLOMERULAR FILTRATION RATE > 60.0 (>42); GLUCOSE, FASTING 111 MG/DL (70-100); HDL CHOLESTEROL 58 MG/DL (>40); LDL CHOLESTEROL 135.4 MG/DL (<100); NON-HDL-C 157 MG/DL; POTASSIUM SERUM 5.1 MEQ/L (3.5-5.1); SODIUM LEVEL 138 MEQ/L (136-145); TOTAL PROTEIN 8.7 GM/DL (6.4-8.2); TRIGLYCERIDES LEVEL 108 MG/DL (<150)
[2017-10-01 10:36] LABS: ESTIMATED AVERAGE GLUCOSE 128 MG/DL (60-110); HEMOGLOBIN A1c 6.1 %
== END ==
LOC: M SHH 09:52
DX: Z79.01 Long term (current) use of anticoagulants (principal); I74.9 Embolism and thrombosis of unspecified artery; E11.9 Type 2 diabetes mellitus without complications; E78.5 Hyperlipidemia, unspecified
CPT/HCPCS: 80053

== ENCOUNTER → 2017-11-21 | Outpatient (REF) | payer MEDICARE ==
[2017-11-21 10:26] LABS: PROTHROMBIN TIME 15.4 SECONDS (12.4-14.5)
== END ==
LOC: M LAB REF 10:04
DX: I74.3 Embolism and thrombosis of arteries of the lower extremities (principal)
CPT/HCPCS: 85610

== ENCOUNTER → 2017-12-02 | Outpatient (REF) | payer MEDICARE ==
[2017-12-02 12:31] LABS: INR 2.09; PROTHROMBIN TIME 24.2 SECONDS (12.4-14.5)
== END ==
LOC: M SFHCADAM 11:34
DX: Z51.81 Encounter for therapeutic drug level monitoring (principal); Z79.01 Long term (current) use of anticoagulants
CPT/HCPCS: 85610

== ENCOUNTER → 2017-12-30 | Outpatient (REF) | payer MEDICARE ==
[2017-12-30 16:43] LABS: INR 1.46; PROTHROMBIN TIME 18.1 SECONDS (12.4-14.5)
== END ==
LOC: M SHH 15:37
DX: Z51.81 Encounter for therapeutic drug level monitoring (principal); Z79.01 Long term (current) use of anticoagulants
CPT/HCPCS: 85610

== ENCOUNTER → 2018-01-07 | Outpatient (REF) | payer MEDICARE ==
[2018-01-07 11:28] LABS: INR 1.94; PROTHROMBIN TIME 22.5 SECONDS (12.1-14.4)
== END ==
LOC: M SHH 10:57
DX: Z79.01 Long term (current) use of anticoagulants (principal)
CPT/HCPCS: 85610

== ENCOUNTER → 2018-02-19 | Outpatient (REF) | payer MEDICARE ==
[2018-02-19 10:58] LABS: INR 2.19; PROTHROMBIN TIME 24.8 SECONDS (12.1-14.4)
[2018-02-19 11:14] LABS: ALBUMIN 3.7 GM/DL (3.2-5.2); ALBUMIN/GLOBULIN RATIO 0.71 (1.00-1.93); ALKALINE PHOSPHATASE 172 U/L (45-117); ALT/SGPT 110 U/L (12-78); ANION GAP 9 MEQ/L (8-16); AST/SGOT 61 U/L (7-37); BILIRUBIN,TOTAL 0.5 MG/DL (0.2-1.0); BLOOD UREA NITROGEN 21 MG/DL (7-18); CALCIUM LEVEL 9.2 MG/DL (8.8-10.2); CARBON DIOXIDE LEVEL 29 MEQ/L (21-32); CHLORIDE LEVEL 100 MEQ/L (98-107); CREATININE FOR GFR 1.02 MG/DL (0.70-1.30); GLOMERULAR FILTRATION RATE > 60.0 (>42); GLUCOSE, FASTING 101 MG/DL (70-100); POTASSIUM SERUM 4.9 MEQ/L (3.5-5.1); SODIUM LEVEL 138 MEQ/L (136-145); TOTAL PROTEIN 8.9 GM/DL (6.4-8.2)
[2018-02-19 11:41] LABS: ESTIMATED AVERAGE GLUCOSE 134 MG/DL (60-110); HEMOGLOBIN A1c 6.3 %
== END ==
LOC: M SHH 10:13
DX: Z79.01 Long term (current) use of anticoagulants (principal); E11.9 Type 2 diabetes mellitus without complications
CPT/HCPCS: 80053

== ENCOUNTER → 2018-04-02 | Outpatient (REF) | payer MEDICARE ==
[2018-04-02 16:05] LABS: INR 1.95; PROTHROMBIN TIME 22.6 SECONDS (12.1-14.4)
== END ==
LOC: M SHH 15:42
DX: Z79.01 Long term (current) use of anticoagulants (principal)
CPT/HCPCS: 85610

== ENCOUNTER → 2018-04-13 | Outpatient (REF) | payer MEDICARE ==
[2018-04-13 13:57] LABS: INR 1.92; PROTHROMBIN TIME 22.3 SECONDS (12.1-14.4)
== END ==
LOC: M SHH 13:08
DX: Z79.01 Long term (current) use of anticoagulants (principal)
CPT/HCPCS: 85610

== ENCOUNTER → 2018-06-26 | Outpatient (REF) | payer MEDICARE ==
[2018-06-26 12:17] LABS: INR 2.33
[2018-06-26 12:42] LABS: ALBUMIN 4.2 GM/DL (3.2-5.2); ALBUMIN/GLOBULIN RATIO 0.98 (1.00-1.93); ALKALINE PHOSPHATASE 132 U/L (45-117); ALT/SGPT 76 U/L (12-78); ANION GAP 8 MEQ/L (8-16); AST/SGOT 45 U/L (7-37); BILIRUBIN,TOTAL 0.7 MG/DL (0.2-1.0); BLOOD UREA NITROGEN 21 MG/DL (7-18); CALCIUM LEVEL 9.7 MG/DL (8.8-10.2); CARBON DIOXIDE LEVEL 30 MEQ/L (21-32); CHLORIDE LEVEL 99 MEQ/L (98-107); CREATININE FOR GFR 0.98 MG/DL (0.70-1.30); GLOMERULAR FILTRATION RATE > 60.0 (>42); GLUCOSE, FASTING 104 MG/DL (70-100); POTASSIUM SERUM 4.4 MEQ/L (3.5-5.1); SODIUM LEVEL 137 MEQ/L (136-145); TOTAL PROTEIN 8.5 GM/DL (6.4-8.2)
[2018-06-26 13:39] LABS: MALB URINE SIEMENS 43.4 MG/L; MAU/CREAT RATIO 39.4 MCG/MG (0.0-30.0)
[2018-06-26 15:48] LABS: ESTIMATED AVERAGE GLUCOSE 146 MG/DL (60-110); HEMOGLOBIN A1c 6.7 %
== END ==
LOC: M SFHCPLAZ 09:37
DX: E11.9 Type 2 diabetes mellitus without complications (principal); I10 Essential (primary) hypertension; K76.0 Fatty (change of) liver, not elsewhere classified; E78.5 Hyperlipidemia, unspecified
CPT/HCPCS: 80053

== ENCOUNTER → 2018-10-19 | Outpatient (REF) | payer MEDICARE ==
[~2018-10-19] MED LIST changes: -/PANT40TA; -ASPI1TAB PO; +ASPI81TA26 PO; +CALC1TAB8 PO; -CALC600T68 PO; +PROT1TAB2
[2018-10-19 10:31] LABS: HEMOGLOBIN A1c 6.1 %
[2018-10-19 10:32] LABS: ALBUMIN 3.7 GM/DL (3.2-5.2); ALT/SGPT 95 U/L (12-78); BILIRUBIN,TOTAL 0.7 MG/DL (0.2-1.0); BLOOD UREA NITROGEN 26 MG/DL (7-18); CARBON DIOXIDE LEVEL 30 MEQ/L (21-32); CHLORIDE LEVEL 105 MEQ/L (98-107); GLOMERULAR FILTRATION RATE > 60.0 (>42); GLUCOSE, FASTING 121 MG/DL (70-100); POTASSIUM SERUM 4.2 MEQ/L (3.5-5.1); SODIUM LEVEL 140 MEQ/L (136-145); TOTAL PROTEIN 7.4 GM/DL (6.4-8.2)
== END ==
LOC: M SFHCPLAZ 08:20
PROVIDERS: ATTEND Nurse Practitioner Family
DX: E11.9 Type 2 diabetes mellitus without complications (principal); I10 Essential (primary) hypertension; K76.0 Fatty (change of) liver, not elsewhere classified; E78.5 Hyperlipidemia, unspecified

== ENCOUNTER → 2019-03-04 | Outpatient (REF) | payer MEDICARE ==
[~2019-03-04] MED LIST changes: +ACET1TAB55 PO; +AMLO5TAB6 PO; +AMMO12CR7 TOP; +AMMO12LO TOP; +AMOX500T2 PO; +AMOX875T2 PO; +BACL10TA2 PO; +BACL1TAB8 PO; +CALC500C16 PO; +CEPH500C PO; +COZA1TAB PO; +CVS1CAP2 PO; +D31000CA4 PO; +ENOX80IN3 SC; +FLEEENE12 PR; +FLOM0.4C39 PO; +FLUTISP NARES; +GLUC500T PO; +IPRA3SP; +KEFL500C17 PO; +LOSA50TA88 PO; +LOVE0.6I2 SC; +METO1TAB87 PO; +NITR100C2 PO; +OYST1TAB PO; +RISATAB3 PO; +SENN-52 PO; +SM N0.65; +Sodium Chloride Nasal Spray; +WARF-23 PO
[2019-03-04 10:31] LABS: ALBUMIN 3.3 GM/DL (3.2-5.2); ALT/SGPT 512 U/L (12-78); BLOOD UREA NITROGEN 23 MG/DL (7-18); CALCIUM LEVEL 9.1 MG/DL (8.8-10.2); CARBON DIOXIDE LEVEL 29 MEQ/L (21-32); CHLORIDE LEVEL 102 MEQ/L (98-107); CHOLESTEROL LEVEL 173 MG/DL (<200); CHOLESTEROL RISK RATIO 4.119 (<5); CREATININE FOR GFR 1.08 MG/DL (0.70-1.30); GLOMERULAR FILTRATION RATE > 60.0 (>42); GLUCOSE, FASTING 114 MG/DL (70-100); HDL CHOLESTEROL 42 MG/DL (>40); LDL CHOLESTEROL 104 MG/DL (<100); NON-HDL-C 131 MG/DL; POTASSIUM SERUM 4.5 MEQ/L (3.5-5.1); SODIUM LEVEL 138 MEQ/L (136-145); TOTAL PROTEIN 8.5 GM/DL (6.4-8.2); TRIGLYCERIDES LEVEL 135 MG/DL (<150)
[2019-03-04 10:39] LABS: MAU/CREAT RATIO 24.1 MCG/MG (0.0-30.0)
[2019-03-04 10:46] LABS: HEMOGLOBIN A1c 6.4 %
== END ==
LOC: M SFHCPLAZ 08:20
PROVIDERS: ATTEND Nurse Practitioner Family
DX: E11.9 Type 2 diabetes mellitus without complications (principal); E78.5 Hyperlipidemia, unspecified

== ENCOUNTER → 2019-03-22 | Outpatient (REF) | payer MEDICARE ==
[~2019-03-22] MED LIST changes: -ACET1TAB55 PO; -AMLO5TAB6 PO; -AMMO12CR7 TOP; -AMMO12LO TOP; -AMOX500T2 PO; -AMOX875T2 PO; -BACL10TA2 PO; -BACL1TAB8 PO; -CALC500C16 PO; -CEPH500C PO; -COZA1TAB PO; -CVS1CAP2 PO; -D31000CA4 PO; -ENOX80IN3 SC; -FLEEENE12 PR; -FLOM0.4C39 PO; -FLUTISP NARES; -GLUC500T PO; -IPRA3SP; -KEFL500C17 PO; -LOSA50TA88 PO; -LOVE0.6I2 SC; -METO1TAB87 PO; -NITR100C2 PO; -OYST1TAB PO; -RISATAB3 PO; -SENN-52 PO; -SM N0.65; -Sodium Chloride Nasal Spray; -WARF-23 PO
[2019-03-22 14:59] LABS: ALBUMIN 3.3 GM/DL (3.2-5.2); BILIRUBIN,DIRECT 0.5 MG/DL (0.0-0.2); BILIRUBIN,TOTAL 0.7 MG/DL (0.2-1.0); TOTAL PROTEIN 8.6 GM/DL (6.4-8.2)
== END ==
LOC: M SFHCPLAZ 09:17
PROVIDERS: ATTEND Family Medicine
DX: R74.8 Abnormal levels of other serum enzymes (principal)

== ENCOUNTER → 2019-03-30 | Outpatient (CLI) | payer MEDICARE ==
[~2019-03-30] MED LIST changes: +ACET1TAB55 PO; +AMLO5TAB6 PO; +AMMO12CR7 TOP; +AMMO12LO TOP; +AMOX500T2 PO; +AMOX875T2 PO; +BACL10TA2 PO; +BACL1TAB8 PO; +CALC500C16 PO; +CEPH500C PO; +COZA1TAB PO; +CVS1CAP2 PO; +D31000CA4 PO; +ENOX80IN3 SC; +FLEEENE12 PR; +FLOM0.4C39 PO; +FLUTISP NARES; +GLUC500T PO; +IPRA3SP; +KEFL500C17 PO; +LOSA50TA88 PO; +LOVE0.6I2 SC; +METO1TAB87 PO; +NITR100C2 PO; +OYST1TAB PO; +RISATAB3 PO; +SENN-52 PO; +SM N0.65; +Sodium Chloride Nasal Spray; +WARF-23 PO
--- NOTE | 2019-03-30 07:38 | REP ---
Abdominal right upper quadrant ultrasound for elevated liver function tests: Comparison is 12/07/2015. There is a mobile 1 cm gallbladder calculus. There is no acoustic shadowing associated with the calculus, therefore, and is likely noncalcified. This was not present previously. There is no gallbladder wall thickening or pericholecystic fluid. There is no intrahepatic or extrahepatic biliary duct dilatation. The common biliary duct measures 3.7 mm in diameter. The hepatic parenchyma is mildly heterogeneous and mildly hyperechoic compatible with fetus hepatocellular disease such as steatosis. Posteriorly in the right lobe of the liver. There is a hypoechoic nodule measuring 2.5 cm in diameter, not present previously. The right kidney is normal size measuring 10.7 x 5.7 x 5.1 cm. There is no right renal calculus or hydronephrosis. There is a right renal lower pole cyst measuring 5 mm, similar to the prior study. There are no solid right renal masses. The abdominal aorta demonstrates no aneurysm. Impression: Mobile noncalcified 1-cm gallbladder calculus, not present previously. No ultrasound evidence of acute cholecystitis or biliary duct dilatation. New 2.5 cm hepatic right lobe nodule. Consider follow-up MRI for further evaluation. Mildly heterogeneous and mildly hyperechoic hepatic parenchyma compatible with diffuse hepatocellular disease such as steatosis. Right renal lower pole cyst, not significantly changed. Electronically Signed by Jeff Moreno MD 03/30/2019 07:30 A
[2019-03-31 10:57] LABS: HEPATITIS A ANTIBODY IGM NEGATIVE (NEGATIVE); HEPATITIS B CORE ANTIBODY IGM NEGATIVE (NEGATIVE); HEPATITIS B SURFACE ANTIGEN NEGATIVE (NEGATIVE); HEPATITIS C VIRUS ABY INDEX 0.1 INDEX (<0.8)
== END ==
LOC: M RAD 06:16
PROVIDERS: ATTEND Family Medicine
DX: R94.5 Abnormal results of liver function studies (principal); K76.0 Fatty (change of) liver, not elsewhere classified

== ENCOUNTER → 2019-04-01 | Outpatient (REF) | payer MEDICARE ==
[~2019-04-01] MED LIST changes: -ACET1TAB55 PO; -AMMO12LO TOP; -AMOX875T2 PO; -BACL10TA2 PO; -BACL1TAB8 PO; -COZA1TAB PO; -ENOX80IN3 SC; -FLEEENE12 PR; -FLOM0.4C39 PO; -FLUTISP NARES; -GLUC500T PO; -IPRA3SP; -LOVE0.6I2 SC; -NITR100C2 PO; -RISATAB3 PO; -SENN-52 PO; -SM N0.65; -Sodium Chloride Nasal Spray
== END ==
LOC: M SFHCADAM 11:56
PROVIDERS: ATTEND Family Medicine
DX: K76.89 Other specified diseases of liver (principal)

== ENCOUNTER → 2019-04-05 | Outpatient (REF) | payer MEDICARE ==
[~2019-04-05] MED LIST changes: -AMLO5TAB6 PO; -AMOX500T2 PO; -CEPH500C PO; -CVS1CAP2 PO; -KEFL500C17 PO; -METO1TAB87 PO; -OYST1TAB PO
[2019-04-05 13:07] LABS: BLOOD UREA NITROGEN 33 MG/DL (7-18); CALCIUM LEVEL 9.8 MG/DL (8.8-10.2); CARBON DIOXIDE LEVEL 28 MEQ/L (21-32); CHLORIDE LEVEL 103 MEQ/L (98-107); CREATININE FOR GFR 1.21 MG/DL (0.70-1.30); GLOMERULAR FILTRATION RATE > 60.0 (>42); GLUCOSE, FASTING 166 MG/DL (70-100); POTASSIUM SERUM 4.1 MEQ/L (3.5-5.1); SODIUM LEVEL 138 MEQ/L (136-145)
== END ==
LOC: M SFHCPLAZ 10:20
PROVIDERS: ATTEND Family Medicine
DX: G35 Multiple sclerosis (principal)

== ENCOUNTER → 2019-04-09 | Outpatient (CLI) | payer MEDICARE ==
[~2019-04-09] MED LIST changes: +ACET1TAB55 PO; +AMLO5TAB6 PO; +AMMO12LO TOP; +AMOX500T2 PO; +AMOX875T2 PO; +BACL10TA2 PO; +BACL1TAB8 PO; +CEPH500C PO; +COZA1TAB PO; +CVS1CAP2 PO; +ENOX80IN3 SC; +FLEEENE12 PR; +FLOM0.4C39 PO; +FLUTISP NARES; +GLUC500T PO; +IPRA3SP; +KEFL500C17 PO; +LOVE0.6I2 SC; +METO1TAB87 PO; +NITR100C2 PO; +OYST1TAB PO; +PROHANCE 279.3MG/ML 15ML VIAL (A9576) As Ordered ONE; +RISATAB3 PO; +SENN-52 PO; +SM N0.65; +Sodium Chloride Nasal Spray
--- NOTE | 2019-04-09 13:44 | REP ---
MRI ABDOMEN WITH AND WITHOUT CONTRAST: Comparison liver ultrasound 03/30/[address] chest 02/06/2012. TECHNIQUE: Multiple sequences obtained in the axial and coronal planes prior to and following the intravenous administration of the 15 mL ProHance. At the right dome of the liver there is a nodule identified which is hypointense on T1 and mildly hyperintense on T2. With the administration of intravenous gadolinium there is peripheral ring enhancement with heterogeneous internal enhancement. The mass measures 1.7 x 2.6 x 3.2 cm. No other liver mass is seen. The liver is enlarged measuring approximately 19 cm in length. Spleen demonstrates no intrinsic abnormality and is normal in size with a length of 12.4 cm. The adrenal glands are normal as is the pancreas. There is no hydronephrosis of either kidney. There are a few tiny cysts in the left kidney. No adenopathy is seen. The abdominal aorta is normal in caliber. No ascites is seen. IMPRESSION: Suspicious mass at the right dome of the liver measuring 1.7 x 2.6 x 3.2 cm. Characteristics are consistent with either a metastatic lesion or primary liver malignant neoplasm. No other liver mass. No adenopathy seen. Electronically Signed by Jeff Lema MD 04/09/2019 04:42 P
== END ==
LOC: M RAD 10:37
PROVIDERS: ATTEND Family Medicine
DX: K76.89 Other specified diseases of liver (principal)
CPT/HCPCS: 74183; A9576

== ENCOUNTER 2019-04-13 08:43 | Emergency (ER) | payer MEDICARE ==
[~2019-04-13] VITALS: Ht 170.2 cm; Wt 77.3 kg
[~2019-04-13 08:43] MED LIST changes: -ACET1TAB55 PO; -AMLO5TAB6 PO; -AMMO12CR7 TOP; -AMMO12LO TOP; -AMOX500T2 PO; -AMOX875T2 PO; -BACL10TA2 PO; -BACL1TAB8 PO; -CALC500C16 PO; -CEPH500C PO; -COZA1TAB PO; -CVS1CAP2 PO; -D31000CA4 PO; -ENOX80IN3 SC; -FLEEENE12 PR; -FLOM0.4C39 PO; -FLUTISP NARES; -GLUC500T PO; -IPRA3SP; -KEFL500C17 PO; -LOSA50TA88 PO; -LOVE0.6I2 SC; -METO1TAB87 PO; -NITR100C2 PO; -OYST1TAB PO; -PROHANCE 279.3MG/ML 15ML VIAL (A9576) As Ordered ONE; -RISATAB3 PO; -SENN-52 PO; -SM N0.65; -Sodium Chloride Nasal Spray; -WARF-23 PO
[2019-04-13 09:45] LABS: MEAN CORPUSCULAR HEMOGLOBIN 31.1 pg (27.0-33.0); MEAN CORPUSCULAR HGB CONC 33.3 g/dl (32.0-36.5); MEAN CORPUSCULAR VOLUME 93.3 fl (80.0-96.0); PLATELET COUNT, AUTOMATED 242 10^3/uL (150-450); WHITE BLOOD COUNT 4.4 10^3/uL (4.0-10.0)
[2019-04-13 09:55] LABS: INR 3.43; PROTHROMBIN TIME 34.6 SECONDS (11.8-14.0)
[2019-04-13] MEDS ORDERED: AMMO12CR7 TOP (10:04)
[2019-04-13] MEDS ORDERED: WARF-23 PO (10:04)
[2019-04-13] MEDS ORDERED: LOSA50TA88 PO (10:04)
[2019-04-13] MEDS ORDERED: D31000CA4 PO (10:04)
[2019-04-13] MEDS ORDERED: CALC500C16 PO (10:04)
[2019-04-13] MEDS ORDERED: LIDOCAINE 2% 5ML JELLY UROJET TOP ONE (11:15)
--- NOTE | 2019-04-13 11:49 | REP ---
REASON FOR EXAM: Hematuria. COMPARISON EXAMS: Multiple, the latest 03/31/2009. Limited evaluation of the solid intra-abdominal organs and gallbladder shows a very mild micronodular surface to the hepatic edge representing a change from the prior exam. Hepatic and splenic densities are within normal limits. There are no choleliths or nephroliths. There is no evidence of ureterolithiasis. There is no hydronephrosis or hydroureter. There are no urinary bladder calcifications. The posterior inferior urinary bladder wall appears somewhat irregular and potentially representing a change from the prior exam. Limited evaluation of the pancreas and adrenal glands show no gross abnormalities. There are significant changes from the prior exam. There is no evidence of free fluid or free air in the abdomen or pelvis. Limited evaluation of the intra-abdominal bowel loops and their mesenteries show no gross abnormalities. Limited evaluation of the abdominal aorta and paraaortic regions show no gross abnormalities. There is a left inguinal hernia which contains large bowel. This has developed since the last exam. There is no evidence of a pelvic mass. There is corpora amylacea status quo. Bone window technique throughout the exam shows chronic spinal, hip, and sacroiliac joint degenerative changes increased from the prior exam. Chronic fibrotic changes are seen in the lung bases which have increased from the prior exam. These chronic changes could obscure a significant lung nodule. There are no pleural or pericardial effusions. IMPRESSION: 1. There is no evidence of acute intra-abdominal or intrapelvic disease. There is a subtle finding of possible posterior inferior urinary bladder wall irregularity which may require further evaluation with cystoscopy. 2. There is a left inguinal hernia. 3. Chronic lung field changes as described above. Electronically Signed by Keyshawn Toscano DO 04/13/2019 02:37 P
[2019-04-13 12:18] LABS: CALCIUM LEVEL 9.4 MG/DL (8.8-10.2); CREATININE FOR GFR 1.34 MG/DL (0.70-1.30); GLOMERULAR FILTRATION RATE 55.3 (>42); MAGNESIUM LEVEL 1.6 MG/DL (1.8-2.4); POTASSIUM SERUM 3.8 MEQ/L (3.5-5.1); THYROID STIMULATING HORMONE 1.15 uIU/ML (0.358-3.740)
[2019-04-13 13:57] VITALS: BP 155/82
[2019-04-14] MEDS ORDERED: KEFL500C17 PO (12:10)
== END 2019-04-13 14:51 | disposition home or self-care (01) ==
LOC: EDBD 08:43 → M ED 08:43
DX: R31.9 Hematuria, unspecified (principal); R16.0 Hepatomegaly, not elsewhere classified; N32.89 Other specified disorders of bladder; E11.9 Type 2 diabetes mellitus without complications; I10 Essential (primary) hypertension; E78.5 Hyperlipidemia, unspecified; G35 Multiple sclerosis; N40.0 Benign prostatic hyperplasia without lower urinary tract symptoms; K76.0 Fatty (change of) liver, not elsewhere classified; E55.9 Vitamin D deficiency, unspecified; G47.33 Obstructive sleep apnea (adult) (pediatric); K40.90 Unilateral inguinal hernia, without obstruction or gangrene, not specified as recurrent; Z79.899 Other long term (current) drug therapy; Z79.84 Long term (current) use of oral hypoglycemic drugs; Z79.01 Long term (current) use of anticoagulants; Z88.8 Allergy status to other drugs, medicaments and biological substances

== ENCOUNTER 2019-04-14 08:31 | Emergency (ER) | payer MEDICARE ==
[~2019-04-14] VITALS: Ht 175.3 cm; Wt 77.3 kg
[~2019-04-14 08:31] MED LIST changes: +AMMO12CR7 TOP; +CALC500C16 PO; +D31000CA4 PO; +LOSA50TA88 PO; +WARF-23 PO
[2019-04-14] MEDS ORDERED: LIDOCAINE 2% 5ML JELLY UROJET TOP ONE (09:00)
[2019-04-14 09:21] LABS: BASO % 0.4 % (0.0-1.0); EOS # 0.1 10^3/uL (0.0-0.5); EOS % 1.4 % (0.0-3.0); HEMATOCRIT 42.1 % (42.0-52.0); LYMPH # 1.8 10^3/uL (1.5-5.0); LYMPH % 22.2 % (24.0-44.0); MEAN CORPUSCULAR HGB CONC 33.3 g/dl (32.0-36.5); MEAN CORPUSCULAR VOLUME 93.1 fl (80.0-96.0); MONO # 0.6 10^3/uL (0.0-0.8); MONO % 7.3 % (0.0-5.0); NEUTROPHILS # 5.5 10^3/uL (1.5-8.5); NEUTROPHILS % 68.3 % (36.0-66.0); PLATELET COUNT, AUTOMATED 257 10^3/uL (150-450); RED BLOOD COUNT 4.52 10^6/uL (4.30-6.10); WHITE BLOOD COUNT 8.1 10^3/uL (4.0-10.0)
[2019-04-14 09:49] LABS: ALBUMIN 3.3 GM/DL (3.2-5.2); BILIRUBIN,TOTAL 0.6 MG/DL (0.2-1.0); CALCIUM LEVEL 9.8 MG/DL (8.8-10.2); CREATININE FOR GFR 1.51 MG/DL (0.70-1.30); GLOMERULAR FILTRATION RATE 48.1 (>42); POTASSIUM SERUM 4.3 MEQ/L (3.5-5.1); TOTAL PROTEIN 8.9 GM/DL (6.4-8.2)
[2019-04-14] MEDS ORDERED: KEFL500C17 PO (12:10)
[2019-04-14 12:23] VITALS: BP 138/73
[2019-04-15] MEDS ORDERED: CEPH500C PO (17:52)
[2019-04-15] MEDS ORDERED: MIRA3350 PO (17:52)
[2019-04-15] MEDS ORDERED: CVS1CAP2 PO (17:52)
[2019-04-15] MEDS ORDERED: OYST1TAB PO (17:52)
== END 2019-04-14 12:43 | disposition home or self-care (01) ==
LOC: M ED 08:31 → EDBD 08:31 → M ED 12:43
DX: N39.0 Urinary tract infection, site not specified (principal); E11.9 Type 2 diabetes mellitus without complications; I10 Essential (primary) hypertension; G35 Multiple sclerosis; E78.9 Disorder of lipoprotein metabolism, unspecified; G47.33 Obstructive sleep apnea (adult) (pediatric); Z79.899 Other long term (current) drug therapy; Z79.84 Long term (current) use of oral hypoglycemic drugs; Z79.01 Long term (current) use of anticoagulants; Z88.8 Allergy status to other drugs, medicaments and biological substances; Z87.891 Personal history of nicotine dependence

== ENCOUNTER 2019-04-15 13:25 | Inpatient (IN) | payer MEDICARE ==
[~2019-04-15] VITALS: Ht 175.3 cm; Wt 74.9 kg
[~2019-04-15 13:25] MED LIST changes: +KEFL500C17 PO
[2019-04-15] MEDS ORDERED: NS 500 ML IV ONE ×2 (14:00→16:30)
[2019-04-15 14:38] LABS: BASO % 0.2 % (0.0-1.0); HEMATOCRIT 41.7 % (42.0-52.0); HEMOGLOBIN 13.9 g/dl (13.5-17.5); LYMPH # 1.1 10^3/uL (1.5-5.0); MEAN CORPUSCULAR HEMOGLOBIN 31.6 pg (27.0-33.0); MEAN CORPUSCULAR HGB CONC 33.3 g/dl (32.0-36.5); MEAN CORPUSCULAR VOLUME 94.8 fl (80.0-96.0); MONO # 1.3 10^3/uL (0.0-0.8); MONO % 6.1 % (0.0-5.0); NEUTROPHILS # 19.1 10^3/uL (1.5-8.5); NEUTROPHILS % 87.6 % (36.0-66.0); PLATELET COUNT, AUTOMATED 242 10^3/uL (150-450); WHITE BLOOD COUNT 21.8 10^3/uL (4.0-10.0)
[2019-04-15 14:49] LABS: INR 3.1; PROTHROMBIN TIME 31.9 SECONDS (11.8-14.0)
[2019-04-15 14:50] LABS: PARTIAL THROMBOPLASTIN TIME 50.6 SECONDS (25.0-38.4)
[2019-04-15 15:20] LABS: ALBUMIN 3.2 GM/DL (3.2-5.2); ALT/SGPT 236 U/L (12-78); BILIRUBIN,DIRECT 0.9 MG/DL (0.0-0.2); BILIRUBIN,TOTAL 1.4 MG/DL (0.2-1.0); BLOOD UREA NITROGEN 26 MG/DL (7-18); CALCIUM LEVEL 9.7 MG/DL (8.8-10.2); CARBON DIOXIDE LEVEL 29 MEQ/L (21-32); CHLORIDE LEVEL 100 MEQ/L (98-107); CK-MB VALUE MASS < 1.0 NG/ML (<3.6); CPK CREATINE PHOSPHOKINASE 181 U/L (39-308); CREATININE FOR GFR 1.39 MG/DL (0.70-1.30); GLOMERULAR FILTRATION RATE 52.9 (>42); GLUCOSE, FASTING 201 MG/DL (70-100); LIPASE 98 U/L (73-393); MB/CK RELATIVE INDEX 0.55 (< OR =4); POTASSIUM SERUM 3.9 MEQ/L (3.5-5.1); SODIUM LEVEL 136 MEQ/L (136-145); TROPONIN I < 0.02 NG/ML (< 0.10)
[2019-04-15] MEDS ORDERED: cefTRIAXone SOD 1 GM in D5W MINI-BAG PLUS 50 ML IV ONE (16:00)
--- NOTE | 2019-04-15 16:13 | REP ---
REASON FOR EXAM: Weakness. COMPARISON: 03/31/2009 the latest prior. There is a patchy opacity in the left lower lobe. There is no evidence of cardiomegaly. The pleural angles are sharp. The osseous structures are stable and intact. IMPRESSION:Left lower lobe pneumonia. Electronically Signed by Keyshawn Toscano DO 04/15/2019 04:44 P
[2019-04-15] MEDS ORDERED: ACETAMINOPHEN TAB 650MG DOSE (2X325MG) PO ONE (16:30)
[2019-04-15] MEDS ORDERED: IPRATROPIUM 0.5MG/ALBUTEROL 2.5MG INH SOL UD 3ML (DUONEB)(J7620) INH PRN (17:15)
[2019-04-15] MEDS ORDERED: ACETAMINOPHEN TAB 650MG DOSE (2X325MG) PO PRN (17:15)
[2019-04-15] MEDS ORDERED: CEPH500C PO (17:52)
[2019-04-15] MEDS ORDERED: OYST1TAB PO (17:52)
[2019-04-15] MEDS ORDERED: CVS1CAP2 PO (17:52)
[2019-04-15] MEDS ORDERED: MIRA3350 PO (17:52)
--- NOTE | 2019-04-15 17:56 | REPVR ---
PROCEDURE INFORMATION: Exam: CT Chest Without Contrast Exam date and time: 04/15/2019 5:21 PM Clinical history: 74 years old, male; Condition or disease; Lung condition and disease; Pneumonia TECHNIQUE: Imaging protocol: Computed tomography of the chest without contrast. 3D rendering: MIP reconstructed images were created and reviewed. Radiation optimization: All CT scans at this facility use at least one of these dose optimization techniques: automated exposure control; mA and/or kV adjustment per patient size (includes targeted exams where dose is matched to clinical indication); or iterative reconstruction. COMPARISON: CR PORTABLE CHEST X-RAY 04/15/2019 2:31 PM FINDINGS: Lungs: Increased interstitial markings in the subpleural aspects of both lower lobes may indicate the presence of mild interstitial lung disease in combination with atelectasis. Noncalcified pleural-based nodule in the right lower lobe measures 6 mm. Pleural space: Unremarkable. No pneumothorax. No pleural effusion. Heart: There is severe atherosclerotic calcification of the coronary arteries. Aorta: The aorta demonstrates mild atherosclerotic calcification. There is fusiform dilatation of the ascending thoracic aorta which measures 3.7 cm. maximally. There is no saccular component. Lymph nodes: Unremarkable. No enlarged lymph nodes. Bones/joints: The spine demonstrates mild degenerative changes. Mild compression deformities in the thoracic spine, age-indeterminate. Soft tissues: Unremarkable. IMPRESSION: 1. Noncalcified pleural-based nodule in the right lower lobe measures 6 mm. For patients at low risk (minimal or absent history of smoking and of other known risk factors), no routine follow-up is indicated. For patients at high risk (history of smoking or of other known risk factors), consider optional CT at 12 months. (Jazmin et al., Fleischner Society, 2017) 2. There is fusiform dilatation of the ascending thoracic aorta which measures 3.7 cm. maximally. There is no saccular component. 3. Possible mild interstitial lung disease as described above. Electronically signed by: Mayco Booth On 04/15/2019 17:55:55 PM
--- NOTE | 2019-04-15 19:11 | ECGEPIP ---
[facility] - ED Test Date: 2019-04-15 Pat Name: MIGUEL MAS Department: Room: - Gender: Male Survey Cad Technician: : 1945 Requested By: SHAI Topete Order Number: [id number] Reading MD: Simeon Krishnan Measurements Intervals [place] Rate: 96 P: 50 ME: 168 QRS: -17 QRSD: 120 T: 53 QT: 335 QTc: 425 Interpretive Statements SINUS RHYTHM INCOMPLETE RIGHT BUNDLE BRANCH BLOCK NONSPECIFIC T-WAVE ABNORMALITY NO PRIORS FOR COMPARISON Electronically Signed on 04-15-2019 19:11:28 EDT by Simeon Krishnan
[2019-04-15] MEDS ORDERED: DOXYCYCLINE HYCLATE 100 MG in D5W MINI-BAG PLUS 100 ML IV SCH (20:00)
--- NOTE | 2019-04-15 20:19 | HPEPDOC ---
General Date of Admission Apr 15, 2019 at 17:12 Date of Service: Apr 15, 2019 Primary Care Physician: Clayton Carrero MD Attending Physician: NAREN WILBURN MD Chief Complaint The patient is a 74-year-old male admitted with a reason for visit of Weakness. Source: Patient, Family Exam Limitations: No limitations Timing/Duration: Day(s) Severity: Moderate Associated Symptoms: Weakness History of Present Illness Mr. Smith is a 74 yo man with a history of DM, HTN, ROCHELLE, MS, ongoing workup for hematuria with concern for a bladder mass (had scheduled cystoscopy w/ Dr. Fofana for 04/21) and liver lesion (has appointment with Dr. Larsen for 05/06), who was recently seen in the ED multiple times for 1. hematuria 2. urinary retention and now returns with generalized weakness with failure to pivot or ambulate per recent baseline. Per his family (daughter and spouse), at baseline he has normal upper extremity strength and has some weakness in R>L lower extremities with some limited use of a walker, daily PT at home and recen tly more use of a wheelchair. They brought him in today because his weakness has recently worsened without any specific pain complaints, fevers, chills, abdominal pain, chest pain, shortness of breath noted. In the ED, he was hemodynamically stable with exam notable for significant lower extremity weakness R>L and otherwise breathing comfortably on room air, and lying flat without discomfort. Initial work up was notable for leukocytosis to 21.8 with a neutrophilic predominance, stable normal H/H, Cr 1.39 (improved from prior), AST 98, ALT 236, alk phos 234, total bili 1.4, CXR reporting a left lower lobe opacity that was not appreciated on CT, a UA with +leuks, 3+blood and EKG with an incomplete RBBB but otherwise NSR. He was given empiric ceftriaxone. Home Medications Scheduled Alpha Lipoic Acid (Alpha Lipoic Acid) 200 Mg Tab, 200 MG PO BID, (Reported) Ammonium Lactate (Ammonium Lactate) 12% Cream..g., 1 DOSE TOP DAILY, (Reported) APPLIES TO ENTIRE BODY AFTER SHOWER Ascorbic Acid (Vitamin C) 500 Mg Cap, 500 MG PO DAILY, (Reported) Calcium Carbonate (Calcium) 500 Mg Tablet, 500 MG PO DAILY, (Reported) Cephalexin (Cephalexin) 500 Mg Capsule, 500 MG PO BID, (Reported) FILLED 04/14/19 FOR 10 DAYS Cholecalciferol (Vitamin D3) (Vitamin D3) 1,000 Unit Capsule, 1,000 UNIT PO DAILY, (Reported) Docusate Sodium (Docusate Sodium) 100 Mg Cap, 200 MG PO BID, (Reported) Lactobacillus Combo No.10 (Probiotic) 1 Each Capsule, 1 CAP PO BID, (Reported) TO PREVENT DIARRHEA WHILE ON KEFLEX Losartan Potassium (Losartan Potassium) 50 Mg Tablet, 50 MG PO DAILY, (Reported) Metformin HCl (Metformin ER Osmotic) 1,000 Mg Tab, 1,000 MG PO QPM, (Reported) Polyethylene Glycol 3350 (Miralax) 119 Gm Powder, 17 GM PO DAILY, (Reported) Warfarin Sodium (Coumadin) 7.5 Mg Tab, 7.5 MG PO QPM, (Reported) Allergies Coded Allergies: Tptzxav-[id number]-Tdh Reductase Inhibitor (Verified Adverse Reaction, Unknown, 04/13/19) gabapentin (Verified Adverse Reaction, Unknown, elevates MS symptoms, 04/13/19) glatiramer (copolymer 1) (Verified Adverse Reaction, Unknown, weakness, 04/13/19) modafinil (Verified Adverse Reaction, Unknown, elevate MS symptoms, 04/13/19) omeprazole (Verified Adverse Reaction, Unknown, elevated MS symptoms, 04/13/19) Past Medical History Medical History Diabetes Hypertension Hyperlipidemia ROCHELLE bladder tumor liver lesion recent UTI Family History Significant Family History: No pertinent family hx Social History * Smoker: Denies Alcohol: Denies Drugs: denies Recent Travel/Sick Contacts: Denies: Recent travel, Recent sick contacts Psychosocial History: No pertinent psych hx A-FIB/CHADSVASC A-FIB History Current/History of A-Fib/PAF?: No Current PO Anticoag Therapy: No Age/Risk Factor Scoring CHADSVASC: CHADSVASC Response (Comments) Value Age Risk Factor Age 65-74 years old 1 Gender Risk Factor Male 0 Hx of Stroke/TIA/or VTE No 0 Hx of Diabetes Yes 1 Hx of Vascular Disease No 0 Total 2 Treatment Treatment ordered: NONE Reason Anticoagulant not given: Not indicated/[id number] Review of Systems Constitutional: Denies: Chills, Fever, Night Sweats Eyes: Denies: Pain, Vision change ENT: Denies: Head Aches, Ear Pain, Dysphagia Skin: Denies: Rash, Lesions, Breakdown Pulmonary: Reports: Cough (per baseline cough, no recent increase in sputum production); Denies: Dyspnea Cardiovascular: Denies: Chest Pain, Palpitations, Orthopnea, Paroxysmal Noc. Dyspnea, Edema, Lt Headedness Gastrointestinal: Denies: Nausea, Vomiting, Abdominal Pain, Diarrhea Genitourinary: Reports: Frequency, Hematuria, Retention; Denies: Dysuria, Incontinence Hematologic: Denies: Bruising, Bleeding Excessively Endocrine: Denies: Polydipsia, Polyphagia, Polyuria, Heat Intolerance, Cold Intolerance, Other Endocrine Sx Musculoskeletal: Reports: Joint Pain; Denies: Neck Pain, Back Pain, Muscle Pain, Spasms Neurological: Reports: Weakness; Denies: Numbness, Change in speech, Confusion, Seizures Psych: Reports: Mood Normal; Denies: Depression, Memory Issues Physical Examination General Exam: Positive: Alert, No Acute Distress Eye Exam: Positive: PERRLA, Conjunctiva & lids normal, EOMI; Negative: Sclera icteric ENT Exam: Positive: Atraumatic, Mucous membr. moist/pink, Pharynx Normal Neck Exam: Positive: Supple; Negative: JVD, thyromegaly Chest Exam: Positive: Clear to auscultation, Normal air movement; Negative: Rales, Wheezing Heart Exam: Positive: Rate Normal, Regular Rhythm, Normal S1, Normal S2; Negative: Gallops, Murmurs, Rubs Abdomen Exam: Positive: Normal bowel sounds, Soft; Negative: Tenderness, Hepatospenomegaly Extremity Exam: Positive: Normal pulses; Negative: Clubbing, Cyanosis, Edema, Tenderness, Swelling Skin Exam: Positive: Nl turgor and temperature; Negative: Breakdown, Lesion Neuro Exam: Positive: Normal Speech, Sensation Intact, Cranial Nerves 3-12 NL, Other (2/5 RLE, 3/5 LLE, 5/5 bilateral upper extremities. Sensation in tact throughout) Vital Signs Vital Signs Date Time Temp Pulse Resp B/P (MAP) Pulse Ox O2 Delivery O2 Flow Rate FiO2 04/15/19 18:15 81 99 04/15/19 18:00 99.4 105/61 (76) 04/15/19 15:55 Room Air 04/15/19 13:29 20 Laboratory Data Labs 24H Laboratory Tests 2 04/15/19 13:58: Immature Granulocyte % (Auto) 1.1, White Blood Count 21.8H, Red Blood Count 4.40, Hemoglobin 13.9, Hematocrit 41.7L, Mean Corpuscular Volume 94.8, Mean Corpuscular Hemoglobin 31.6, Mean Corpuscular Hemoglobin Concent 33.3, Red Cell Distribution Width 13.7, Platelet Count 242, Neutrophils (%) (Auto) 87.6H, Lymphocytes (%) (Auto) 5.0L, Monocytes (%) (Auto) 6.1H, Eosinophils (%) (Auto) 0.0, Basophils (%) (Auto) 0.2, Neutrophils # (Auto) 19.1H, Lymphocytes # (Auto) 1.1L, Monocytes # (Auto) 1.3H, Eosinophils # (Auto) 0.0, Basophils # (Auto) 0.0, Nucleated Red Blood Cells % (auto) 0.0, Prothrombin Time 31.9H, Prothromb Time International Ratio 3.10, Activated Partial Thromboplast Time 50.6H, Anion Gap 7L, Glomerular Filtration Rate 52.9, Calcium Level 9.7, Aspartate Amino Transf (AST/SGOT) 98H, Alanine Aminotransferase (ALT/SGPT) 236H, Alkaline Phosphatase 234H, Total Bilirubin 1.4#H, Direct Bilirubin 0.9H, Total Creatine Kinase 181, Creatine Kinase MB < 1.0, Creatine Kinase MB Relative Index 0.55, Troponin I < 0 .02, Total Protein 9.0H, Albumin 3.2, Albumin/Globulin Ratio 0.55L, Lipase 98 04/15/19 14:49: Urine Color REDH, Urine Appearance TURBIDH, Urine pH 5.0, Urine Specific [place] 1.018, Urine Protein 2+H, Urine Glucose (UA) 1+H, Urine Ketones NEGATIVE, Urine Blood 3+H, Urine Nitrite NEGATIVE, Urine Bilirubin NEGATIVE, Urine Urobilinogen 2.0H, Urine Leukocyte Esterase 2+H, Urine WBC (Auto) TNTCH, Urine RBC (Auto) TNTCH, Urine Hyaline Casts (Auto) 0, Urine Bacteria (Auto) NEGATIVE, Urine Squamous Epithelial Cells 0, Urine Sperm (Auto) CBC/BMP Laboratory Tests 04/15/19 13:58 Red Blood Count 4.40, Mean Corpuscular Volume 94.8, Mean Corpuscular Hemoglobin 31.6, Mean Corpuscular Hemoglobin Concent 33.3, Red Cell Distribution Width 13.7, Neutrophils (%) (Auto) 87.6 H, Lymphocytes (%) (Auto) 5.0 L, Monocytes (%) (Auto) 6.1 H, Eosinophils (%) (Auto) 0.0, Basophils (%) (Auto) 0.2, Neutrophils # (Auto) 19.1 H, Lymphocytes # (Auto) 1.1 L, Monocytes # (Auto) 1.3 H, Eosinophils # (Auto) 0.0, Basophils # (Auto) 0.0 Microbiology Microbiology 04/15/19 Blood Culture, Received Pending 04/15/19 Urine Culture, Received Pending 04/15/19 Blood Culture, Received Pending Assessment/Plan Mr. Smith is a 74 yo man with a history of DM, HTN, ROCHELLE, MS, ongoing workup for hematuria with concern for a bladder mass and liver lesion, who was recently seen in the ED multiple times for hematuria and urinary retention who now returned with generalized weakness with reduced mobility per family and found to have a UTI and presumed pneumonia with an accompanying leukocytosis. UTI: -continue empiric ceftriaxone -urine culture -for completing infectious work up, follow up sputum culture although CT did not show briana opacities Hematuria: -consult Dr. Fofana, pending outpatient cystoscopy Transaminitis with elevated alk phos: -Patient has a known liver lesion pending biopsy and following outpatient with Dr. Larsen, will call Dr. Larsen (Friday AM) and get recs on necessity of inpatient GI consult, has pending outpatient follow up and biopsy plan. -monitor LFTs Weakness: -PT, OT consult -PFS consult for discharge planning, family concerned about weakness and how this fits into his home regimen Diabetes: -Hold metformin -SSI -hypoglycemia protocol -FSBG AC/HS Chronic home meds: -Losartan -Miralax QD -Vit D3 1000U QD -Warfarin 7.5 QD DVT prophylaxis: On warfarin Diet: Consistent carb Plan / VTE VTE Prophylaxis Ordered?: Yes NAREN WILBURN MD Apr 15, 2019 20:19
[2019-04-15] MEDS ORDERED: DEXTROSE 50% 50 ML SYRINGE IV PRN (20:30)
[2019-04-15] MEDS ORDERED: GLUCAGON FOR INJ 1 MG VIAL (J1610) SC PRN (20:30)
[2019-04-15] MEDS ORDERED: GLUCOSE 4 GM CHEW TABLET PO PRN (20:30)
[2019-04-15] MEDS: HumaLOG INSULIN (NovoLOG) PER UNIT SC SCH (21:00)
[2019-04-15] MEDS ORDERED: HEPARIN SOD (PORCINE) 5000 UNITS/ML VIAL SC SCH (22:00)
[2019-04-15 22:07] VITALS: BP 138/71
[2019-04-15] MEDS: DOCUSATE SODIUM 100 MG CAP PO SCH (23:14)
[2019-04-16 06:00] VITALS: BP 133/74
[2019-04-16 06:43] LABS: HEMATOCRIT 36.8 % (42.0-52.0); HEMOGLOBIN 12.3 g/dl (13.5-17.5); MEAN CORPUSCULAR HEMOGLOBIN 31.1 pg (27.0-33.0); MEAN CORPUSCULAR HGB CONC 33.4 g/dl (32.0-36.5); MEAN CORPUSCULAR VOLUME 92.9 fl (80.0-96.0); PLATELET COUNT, AUTOMATED 218 10^3/uL (150-450); RED BLOOD COUNT 3.96 10^6/uL (4.30-6.10); WHITE BLOOD COUNT 18.9 10^3/uL (4.0-10.0)
[2019-04-16 06:56] LABS: INR 2.8; PROTHROMBIN TIME 29.4 SECONDS (11.8-14.0)
[2019-04-16 07:05] LABS: ALBUMIN 2.5 GM/DL (3.2-5.2); BILIRUBIN,TOTAL 1.3 MG/DL (0.2-1.0); CALCIUM LEVEL 8.9 MG/DL (8.8-10.2); CREATININE FOR GFR 1.48 MG/DL (0.70-1.30); GLOMERULAR FILTRATION RATE 49.2 (>42); POTASSIUM SERUM 3.8 MEQ/L (3.5-5.1); TOTAL PROTEIN 7.7 GM/DL (6.4-8.2)
[2019-04-16] MEDS: OYSTER SHELL CALCIUM 500 MG TAB PO SCH (09:17)
[2019-04-16] MEDS: DOCUSATE SODIUM 100 MG CAP PO SCH ×2 (09:17→21:30)
[2019-04-16] MEDS: VITAMIN D 1,000 INTERNATIONAL UNITS TABLET PO SCH (09:17)
[2019-04-16] MEDS: ASCORBIC ACID 500 MG TAB PO SCH (09:17)
[2019-04-16] MEDS: MIRALAX *UNIT DOSE* 17GM PACKET PO SCH (09:17)
[2019-04-16] MEDS: HumaLOG INSULIN (NovoLOG) PER UNIT SC SCH ×4 (09:18→21:00)
[2019-04-16] MEDS: LOSARTAN 50 MG TAB PO SCH (09:18)
[2019-04-16] MEDS: LACTIC ACID 12% LOTION 225 GM BTL TOP SCH (09:25)
--- NOTE | 2019-04-16 10:04 | IPNPDOC ---
Subjective Date Seen The patient was seen on 04/16/19. Subjective Chief Complaint/HPI Pt with family at bedside. He states that he has no pain, is feeling better then he was yesterday. Denies fevers. Has a good appetite. He cont to feel weak. General: Reports: Fatigue Constitutional: Denies: Chills, Fever Pulmonary: Denies: Dyspnea, Cough Cardiovascular: Denies: Chest Pain, Palpitations Gastrointestinal: Denies: Nausea, Vomiting, Diarrhea Neurological: Reports: Weakness Psych: Reports: Mood Normal Objective Physical Examination General Exam: Positive: Alert, No Acute Distress ENT Exam: Positive: Mucous membr. moist/pink Neck Exam: Positive: Supple; Negative: JVD, thyromegaly Chest Exam: Positive: Clear to auscultation, Normal air movement; Negative: Rales, Wheezing Heart Exam: Positive: Rate Normal, Regular Rhythm, Normal S1, Normal S2; Negative: Gallops, Murmurs, Rubs Abdomen Exam: Positive: Normal bowel sounds, Soft; Negative: Tenderness, Hepatospenomegaly Extremity Exam: Positive: Normal pulses; Negative: Clubbing, Cyanosis, Edema, Tenderness, Swelling Skin Exam: Positive: Nl turgor and temperature; Negative: Breakdown, Lesion Neuro Exam: Positive: Normal Speech, Sensation Intact, Cranial Nerves 3-12 NL Assessment /Plan Problems (1) UTI (urinary tract infection) Status: Acute Response to Treatment: Stable, Improving Discussed With: Nurse, Patient, Family with Pt Consent Problem Specific Plan: Monitor Clinically, Repeat Labs Problem Text: UA +, admitted started on Rocephin D2, await culture results. Pt with + Hematuria, scheduled for cystoscopy 04/21 with [facility], reeval Friday when/how to proceed. (2) Transaminitis Status: Acute Response to Treatment: Stable Problem Specific Plan: Monitor Clinically Problem Text: Has upcoming outpt visit with Dr Larsen. (3) Bladder mass Status: Acute Problem Specific Plan: Monitor Clinically Problem Text: See above. (4) Weakness Status: Acute Response to Treatment: Worse Discussed With: Nurse, Patient Problem Specific Plan: Monitor Clinically Problem Text: PT ordered, pt eager to participate. (5) Diabetes mellitus Status: Chronic Response to Treatment: Stable Problem Text: SSI ordered with FSBS, cons carb diet. Plan/VTE VTE Prophylaxis Ordered?: Yes (On Coumadin) VS, I&O, 24H, Fishbone Vital Signs/I&O Vital Signs Date Time Temp Pulse Resp B/P (MAP) Pulse Ox O2 Delivery O2 Flow Rate FiO2 04/16/19 09:18 139/72 04/16/19 06:00 98.2 91 18 99 04/15/19 21:30 Nasal Cannula 2.0 I&O- Last 24 Hours up to 6 AM 04/16/19 05:59 Intake Total 1390 ml Output Total 400 ml Balance 990 ml Laboratory Data 24H LABS Laboratory Tests 2 04/15/19 13:58: Immature Granulocyte % (Auto) 1.1, White Blood Count 21.8H, Red Blood Count 4.40, Hemoglobin 13.9, Hematocrit 41.7L, Mean Corpuscular Volume 94.8, Mean Corpuscular Hemoglobin 31.6, Mean Corpuscular Hemoglobin Concent 33.3, Red Cell Distribution Width 13.7, Platelet Count 242, Neutrophils (%) (Auto) 87.6H, Lymphocytes (%) (Auto) 5.0L, Monocytes (%) (Auto) 6.1H, Eosinophils (%) (Auto) 0.0, Basophils (%) (Auto) 0.2, Neutrophils # (Auto) 19.1H, Lymphocytes # (Auto) 1.1L, Monocytes # (Auto) 1.3H, Eosinophils # (Auto) 0.0, Basophils # (Auto) 0.0, Nucleated Red Blood Cells % (auto) 0.0, Prothrombin Time 31.9H, Prothromb Time International Ratio 3.10, Activated Partial Thromboplast Time 50.6H, Anion Gap 7L, Glomerular Filtration Rate 52.9, Calcium Level 9.7, Aspartate Amino Transf (AST/SGOT) 98H, Alanine Aminotransferase (ALT/SGPT) 236H, Alkaline Phosphatase 234H, Total Bilirubin 1.4#H, Direct Bilirubin 0.9H, Total Creatine Kinase 181, Creatine Kinase MB < 1.0, Creatine Kinase MB Relative Index 0.55, Troponin I < 0.02, Total Protein 9.0H, Albumin 3.2, Albumin/Globulin Ratio 0.55L, Lipase 98 04/15/19 14:49: Urine Color REDH, Urine Appearance TURBIDH, Urine pH 5.0, Urine Specific [place] 1.018, Urine Protein 2+H, Urine Glucose (UA) 1+H, Urine Ketones NEGATIVE, Urine Blood 3+H, Urine Nitrite NEGATIVE, Urine Bilirubin NEGATIVE, Urine Urobilinogen 2.0H, Urine Leukocyte Esterase 2+H, Urine WBC (Auto) TNTCH, Urine RBC (Auto) TNTCH, Urine Hyaline Casts (Auto) 0, Urine Bacteria (Auto) NEGATIVE, Urine Squamous Epithelial Cells 0, Urine Sperm (Auto) 04/15/19 22:52: Bedside Glucose (Misc Panel) 192H 04/16/19 06:22: Nucleated Red Blood Cells % (auto) 0.0, Prothrombin Time 29.4H, Prothromb Time International Ratio 2.80, Anion Gap 7L, Glomerular Filtration Rate 49.2, Calcium Level 8.9, Aspartate Amino Transf (AST/SGOT) 74H, Alanine Aminotransferase (ALT/SGPT) 163H, Alkaline Phosphatase 177H, Total Bilirubin 1.3H, Total Protein 7.7, Albumin 2.5#L, Albumin/Globulin Ratio 0.48L, Blood Urea Nitrogen 28H, Creatinine 1.48H, Sodium Level 138, Potassium Level 3.8, Chloride Level 105, Carbon Dioxide Level 26 CBC/BMP Laboratory Tests 04/15/19 13:58 Red Blood Count 4.40, Mean Corpuscular Volume 94.8, Mean Corpuscular Hemoglobin 31.6, Mean Corpuscular Hemoglobin Concent 33.3, Red Cell Distribution Width 13.7, Neutrophils (%) (Auto) 87.6 H, Lymphocytes (%) (Auto) 5.0 L, Monocytes (%) (Auto) 6.1 H, Eosinophils (%) (Auto) 0.0, Basophils (%) (Auto) 0.2, Neutrophils # (Auto) 19.1 H, Lymphocytes # (Auto) 1.1 L, Monocytes # (Auto) 1.3 H, Eosinophils # (Auto) 0.0, Basophils # (Auto) 0.0 04/16/19 06:22 Red Blood Count 3.96 L, Mean Corpuscular Volume 92.9, Mean Corpuscular Hemoglobin 31.1, Mean Corpuscular Hemoglobin Concent 33.4, Red Cell Distribution Width 13.4, Calcium Level 8.9, Aspartate Amino Transf (AST/SGOT) 74 H, Alanine Aminotransferase (ALT/SGPT) 163 H, Alkaline Phosphatase 177 H, Total Bilirubin 1.3 H, Total Protein 7.7, Albumin 2.5 #L Microbiology Microbiology 04/15/19 Blood Culture, Received Pending 04/15/19 Urine Culture, Received Pending 04/15/19 Blood Culture, Received Pending NESTOR HAAS PA-C Apr 16, 2019 10:04
[2019-04-16 14:00] VITALS: BP 136/71
[2019-04-16] MEDS: WARFARIN SOD 7.5 MG TAB PO SCH (17:07)
[2019-04-16] MEDS: cefTRIAXone SOD 1 GM in D5W MINI-BAG PLUS 50 ML IV SCH (17:08)
[2019-04-16 22:00] VITALS: BP 132/76
[2019-04-17 06:00] VITALS: BP 100/64
[2019-04-17 06:46] LABS: HEMATOCRIT 35.4 % (42.0-52.0); HEMOGLOBIN 11.9 g/dl (13.5-17.5); MEAN CORPUSCULAR HEMOGLOBIN 31.6 pg (27.0-33.0); MEAN CORPUSCULAR HGB CONC 33.6 g/dl (32.0-36.5); MEAN CORPUSCULAR VOLUME 93.9 fl (80.0-96.0); PLATELET COUNT, AUTOMATED 236 10^3/uL (150-450); RED BLOOD COUNT 3.77 10^6/uL (4.30-6.10); WHITE BLOOD COUNT 8.3 10^3/uL (4.0-10.0)
[2019-04-17 07:10] LABS: ALBUMIN 2.4 GM/DL (3.2-5.2); BILIRUBIN,TOTAL 0.8 MG/DL (0.2-1.0); CREATININE FOR GFR 1.4 MG/DL (0.70-1.30); GLOMERULAR FILTRATION RATE 52.5 (>42); POTASSIUM SERUM 3.7 MEQ/L (3.5-5.1)
[2019-04-17 07:18] LABS: INR 2.03; PROTHROMBIN TIME 22.7 SECONDS (11.8-14.0)
[2019-04-17] MEDS: HumaLOG INSULIN (NovoLOG) PER UNIT SC SCH ×4 (07:56→21:00)
[2019-04-17] MEDS: MIRALAX *UNIT DOSE* 17GM PACKET PO SCH (08:37)
[2019-04-17] MEDS: VITAMIN D 1,000 INTERNATIONAL UNITS TABLET PO SCH (08:37)
[2019-04-17] MEDS: DOCUSATE SODIUM 100 MG CAP PO SCH ×2 (08:37→21:20)
[2019-04-17] MEDS: ASCORBIC ACID 500 MG TAB PO SCH (08:39)
[2019-04-17] MEDS: OYSTER SHELL CALCIUM 500 MG TAB PO SCH (08:39)
[2019-04-17] MEDS: LOSARTAN 50 MG TAB PO SCH (08:39)
[2019-04-17] MEDS: LACTIC ACID 12% LOTION 225 GM BTL TOP SCH (08:40)
[2019-04-17 14:00] VITALS: BP 130/75
--- NOTE | 2019-04-17 17:43 | IPNPDOC ---
Subjective Date Seen The patient was seen on 04/17/19. Subjective Chief Complaint/HPI Mr. Smith reports that he still feels weak today. He doesn't know if this is related to an MS flare, or what it going on with his infection. He is very concerned that he and his can't manage him at home in his current state. He'd like to talk about placement at least while he gets his strength back up. General: Reports: Normal Appetite Constitutional: Reports: Weakness Pulmonary: Denies: Dyspnea, Cough Cardiovascular: Denies: Chest Pain, Palpitations Psych: Reports: Mood Normal Objective Physical Examination General Exam: Positive: Alert, Cooperative, No Acute Distress Eye Exam: Positive: Conjunctiva & lids normal; Negative: Sclera icteric ENT Exam: Positive: Mucous membr. moist/pink Neck Exam: Positive: Supple; Negative: Lymphadenopathy Chest Exam: Positive: Clear to auscultation, Normal air movement; Negative: Rales, Wheezing Heart Exam: Positive: Rate Normal, Regular Rhythm, Normal S1, Normal S2 Abdomen Exam: Positive: Normal bowel sounds, Soft; Negative: Tenderness, Hepatospenomegaly Extremity Exam: Positive: Normal pulses; Negative: Edema, Tenderness, Swelling Skin Exam: Positive: Nl turgor and temperature Neuro Exam: Positive: Normal Speech, Sensation Intact Psych Exam: Positive: Mood NL, Oriented x 3 Assessment /Plan Problems (1) UTI (urinary tract infection) Status: Acute Response to Treatment: Stable, Improving Discussed With: Nurse, Patient, Family with Pt Consent Problem Specific Plan: Monitor Clinically, Repeat Labs Problem Text: UA +, Rocephin D3, the UCx shows a pansensitive E. coli. I will start him on Augmentin tomorrow. Pt with + Hematuria, scheduled for cystoscopy 04/21 with [facility], reeval Friday when/how to proceed. (2) Weakness Status: Acute Response to Treatment: Worse Discussed With: Nurse, Patient Problem Specific Plan: Monitor Clinically Problem Text: PT ordered, pt eager to participate. He is hoping that he will qualify for sub-acute rehab. He feels that he is not strong enough to go home and not be a significant burden on his . His ultimate plans are to return home. (3) Bladder mass Status: Acute Problem Specific Plan: Monitor Clinically Problem Text: See above. (4) Transaminitis Status: Acute Response to Treatment: Stable Problem Specific Plan: Monitor Clinically Problem Text: Has upcoming outpt visit with Dr Larsen. (5) Diabetes mellitus Status: Chronic Response to Treatment: Stable Problem Text: SSI ordered with FSBS, cons carb diet. Plan/VTE VTE Prophylaxis Ordered?: Yes (On Coumadin) VS, I&O, 24H, Fishbone Vital Signs/I&O Vital Signs Date Time Temp Pulse Resp B/P (MAP) Pulse Ox O2 Delivery O2 Flow Rate FiO2 04/17/19 14:00 98.2 86 18 130/75 (93) 100 04/15/19 21:30 Nasal Cannula 2.0 I&O- Last 24 Hours up to 6 AM 04/17/19 06:00 Intake Total 1080 ml Output Total 1675 ml Balance -595 ml Laboratory Data 24H LABS Laboratory Tests 2 04/16/19 20:37: Bedside Glucose (Misc Panel) 190H 04/17/19 06:22: Nucleated Red Blood Cells % (auto) 0.0, Prothrombin Time 22.7H, Prothromb Time International Ratio 2.03, Anion Gap 6L, Glomerular Filtration Rate 52.5, Blood Urea Nitrogen 27H, Creatinine 1.40H, Sodium Level 139, Potassium Level 3.7, Chloride Level 106, Carbon Dioxide Level 27, Calcium Level 9.0, Aspartate Amino Transf (AST/SGOT) 81H, Alanine Aminotransferase (ALT/SGPT) 142H, Alkaline Phosphatase 188H, Total Bilirubin 0.8, Total Protein 8.0, Albumin 2.4L, Albumin/Globulin Ratio 0.43L 04/17/19 11:40: Bedside Glucose (Misc Panel) 184H 04/17/19 16:40: Bedside Glucose (Misc Panel) 132H CBC/BMP Laboratory Tests 04/17/19 06:22 Red Blood Count 3.77 L, Mean Corpuscular Volume 93.9, Mean Corpuscular Hemoglobin 31.6, Mean Corpuscular Hemoglobin Concent 33.6, Red Cell Distribution Width 13.2, Calcium Level 9.0, Aspartate Amino Transf (AST/SGOT) 81 H, Alanine Aminotransferase (ALT/SGPT) 142 H, Alkaline Phosphatase 188 H, Total Bilirubin 0.8, Total Protein 8.0, Albumin 2.4 L Microbiology Microbiology 04/16/19 Gram Stain - Final, Resulted 04/16/19 Sputum Culture, Resulted Pending 04/15/19 Blood Culture - Preliminary, Resulted No Growth after 48 hours. All Specime... 04/15/19 Urine Culture - Final, Complete Escherichia Coli 04/15/19 Blood Culture - Preliminary, Resulted No Growth after 48 hours. All Specime... Yves Arriaza MD Apr 17, 2019 17:43
[2019-04-17] MEDS: WARFARIN SOD 7.5 MG TAB PO SCH (17:51)
[2019-04-17] MEDS: cefTRIAXone SOD 1 GM in D5W MINI-BAG PLUS 50 ML IV SCH (17:52)
[2019-04-17 22:00] VITALS: BP 144/85
[2019-04-18 06:00] VITALS: BP 107/68
[2019-04-18 06:39] LABS: HEMATOCRIT 37.3 % (42.0-52.0); HEMOGLOBIN 12.5 g/dl (13.5-17.5); MEAN CORPUSCULAR HEMOGLOBIN 31.4 pg (27.0-33.0); MEAN CORPUSCULAR HGB CONC 33.5 g/dl (32.0-36.5); MEAN CORPUSCULAR VOLUME 93.7 fl (80.0-96.0); PLATELET COUNT, AUTOMATED 250 10^3/uL (150-450); RED BLOOD COUNT 3.98 10^6/uL (4.30-6.10); WHITE BLOOD COUNT 5.7 10^3/uL (4.0-10.0)
[2019-04-18 06:41] LABS: INR 1.9; PROTHROMBIN TIME 21.5 SECONDS (11.8-14.0)
[2019-04-18 06:53] LABS: ALBUMIN 2.3 GM/DL (3.2-5.2); BILIRUBIN,TOTAL 0.5 MG/DL (0.2-1.0); CALCIUM LEVEL 8.7 MG/DL (8.8-10.2); CREATININE FOR GFR 1.48 MG/DL (0.70-1.30); GLOMERULAR FILTRATION RATE 49.2 (>42); POTASSIUM SERUM 3.8 MEQ/L (3.5-5.1); TOTAL PROTEIN 7.7 GM/DL (6.4-8.2)
[2019-04-18] MEDS: DOCUSATE SODIUM 100 MG CAP PO SCH ×2 (08:01→20:46)
[2019-04-18] MEDS: OYSTER SHELL CALCIUM 500 MG TAB PO SCH (08:01)
[2019-04-18] MEDS: MIRALAX *UNIT DOSE* 17GM PACKET PO SCH (08:01)
[2019-04-18] MEDS: VITAMIN D 1,000 INTERNATIONAL UNITS TABLET PO SCH (08:01)
[2019-04-18] MEDS: HumaLOG INSULIN (NovoLOG) PER UNIT SC SCH ×4 (08:01→21:00)
[2019-04-18] MEDS: AUGMENTIN 500 MG TAB PO SCH ×2 (08:01→20:46)
[2019-04-18] MEDS: ASCORBIC ACID 500 MG TAB PO SCH (08:01)
[2019-04-18] MEDS: LOSARTAN 50 MG TAB PO SCH (08:03)
[2019-04-18] MEDS: LACTIC ACID 12% LOTION 225 GM BTL TOP SCH (08:07)
[2019-04-18 14:00] VITALS: BP 106/64
[2019-04-18] MEDS: WARFARIN SOD 7.5 MG TAB PO SCH (17:25)
--- NOTE | 2019-04-18 18:15 | IPNPDOC ---
Subjective Date Seen The patient was seen on 04/18/19. Subjective Chief Complaint/HPI He reports that he has been urinating about every hour since the catheter was removed, however, he reports that this is his baseline. He got up and walked in the [place] with P/T today. He has tolerated the Augmentin just fine. General: Reports: Normal Appetite Pulmonary: Denies: Dyspnea, Cough Cardiovascular: Denies: Chest Pain, Palpitations Genitourinary: Reports: Frequency (but baseline); Denies: Dysuria Psych: Reports: Mood Normal Objective Physical Examination General Exam: Positive: Alert, Cooperative, No Acute Distress Eye Exam: Positive: Conjunctiva & lids normal; Negative: Sclera icteric ENT Exam: Positive: Mucous membr. moist/pink Neck Exam: Positive: Supple; Negative: Lymphadenopathy Chest Exam: Positive: Clear to auscultation, Normal air movement Heart Exam: Positive: Rate Normal, Regular Rhythm, Normal S1, Normal S2 Abdomen Exam: Positive: Normal bowel sounds, Soft; Negative: Tenderness Extremity Exam: Positive: Normal pulses; Negative: Edema Skin Exam: Positive: Nl turgor and temperature Neuro Exam: Positive: Normal Speech Psych Exam: Positive: Mood NL, Oriented x 3 Assessment /Plan Problems (1) UTI (urinary tract infection) Status: Acute Response to Treatment: Stable, Improving Discussed With: Nurse, Patient, Family with Pt Consent Problem Specific Plan: Monitor Clinically, Repeat Labs Problem Text: He has tolerated the Augmentin well today. Continue oral abx. Had 3 days of Rocephin before starting orals. Pt with + Hematuria, scheduled for cystoscopy 04/21 with [facility], reeval Friday when/how to proceed. (2) Weakness Status: Acute Response to Treatment: Worse Discussed With: Nurse, Patient Problem Specific Plan: Monitor Clinically Problem Text: He reports that he did well with P/T today. We discussed acute vs sub-acute rehab since he is very motivated. He feels that he is not strong enough to go home and not be a significant burden on his . His ultimate plans are to return home. (3) Bladder mass Status: Acute Problem Specific Plan: Monitor Clinically Problem Text: See above. (4) Transaminitis Status: Acute Response to Treatment: Stable Problem Specific Plan: Monitor Clinically Problem Text: Has upcoming outpt visit with Dr Larsen. (5) Diabetes mellitus Status: Chronic Response to Treatment: Stable Problem Text: SSI ordered with FSBS, cons carb diet. Plan/VTE VTE Prophylaxis Ordered?: Yes (On Coumadin) VS, I&O, 24H, Fishbone Vital Signs/I&O Vital Signs Date Time Temp Pulse Resp B/P (MAP) Pulse Ox O2 Delivery O2 Flow Rate FiO2 04/18/19 14:00 98.4 80 18 106/64 (78) 95 04/15/19 21:30 Nasal Cannula 2.0 I&O- Last 24 Hours up to 6 AM 04/18/19 05:59 Intake Total 1540 ml Output Total 1650 ml Balance -110 ml Laboratory Data 24H LABS Laboratory Tests 2 04/17/19 20:43: Bedside Glucose (Misc Panel) 149H 04/18/19 05:49: Nucleated Red Blood Cells % (auto) 0.0, Prothrombin Time 21.5H, Prothromb Time International Ratio 1.90, Anion Gap 6L, Glomerular Filtration Rate 49.2, Blood Urea Nitrogen 31H, Creatinine 1.48H, Sodium Level 140, Potassium Level 3.8, Chloride Level 107, Carbon Dioxide Level 27, Calcium Level 8.7L, Aspartate Amino Transf (AST/SGOT) 86H, Alanine Aminotransferase (ALT/SGPT) 144H, Alkaline Phosphatase 201H, Total Bilirubin 0.5, Total Protein 7.7, Albumin 2.3L, Albumin/Globulin Ratio 0.43L 04/18/19 12:02: Bedside Glucose (Misc Panel) 109 04/18/19 16:45: Bedside Glucose (Misc Panel) 131H CBC/BMP Laboratory Tests 04/18/19 05:49 Red Blood Count 3.98 L, Mean Corpuscular Volume 93.7, Mean Corpuscular Hemoglobin 31.4, Mean Corpuscular Hemoglobin Concent 33.5, Red Cell Distribution Width 13.2, Calcium Level 8.7 L, Aspartate Amino Transf (AST/SGOT) 86 H, Alanine Aminotransferase (ALT/SGPT) 144 H, Alkaline Phosphatase 201 H, Total Bilirubin 0.5, Total Protein 7.7, Albumin 2.3 L Microbiology Microbiology 04/16/19 Gram Stain - Final, Complete 04/16/19 Sputum Culture - Final, Complete 04/15/19 Blood Culture - Preliminary, Resulted No Growth after 72 hours. All specime... 04/15/19 Urine Culture - Final, Complete Escherichia Coli 04/15/19 Blood Culture - Preliminary, Resulted No Growth after 72 hours. All specime... Yves Arriaza MD Apr 18, 2019 18:15
[2019-04-18 22:00] VITALS: BP 138/80
[2019-04-19 06:00] VITALS: BP 105/65
[2019-04-19 06:11] LABS: HEMOGLOBIN 12.1 g/dl (13.5-17.5); MEAN CORPUSCULAR HEMOGLOBIN 31.4 pg (27.0-33.0); MEAN CORPUSCULAR HGB CONC 33.6 g/dl (32.0-36.5); MEAN CORPUSCULAR VOLUME 93.5 fl (80.0-96.0); PLATELET COUNT, AUTOMATED 270 10^3/uL (150-450); RED BLOOD COUNT 3.85 10^6/uL (4.30-6.10); WHITE BLOOD COUNT 5.4 10^3/uL (4.0-10.0)
[2019-04-19 06:37] LABS: ALBUMIN 2.3 GM/DL (3.2-5.2); BILIRUBIN,TOTAL 0.5 MG/DL (0.2-1.0); CALCIUM LEVEL 8.5 MG/DL (8.8-10.2); CREATININE FOR GFR 1.36 MG/DL (0.70-1.30); GLOMERULAR FILTRATION RATE 54.2 (>42); POTASSIUM SERUM 3.7 MEQ/L (3.5-5.1); TOTAL PROTEIN 7.9 GM/DL (6.4-8.2)
[2019-04-19 06:39] LABS: INR 2.23; PROTHROMBIN TIME 24.5 SECONDS (11.8-14.0)
[2019-04-19] MEDS: MIRALAX *UNIT DOSE* 17GM PACKET PO SCH (08:51)
[2019-04-19] MEDS: DOCUSATE SODIUM 100 MG CAP PO SCH ×2 (08:51→21:34)
[2019-04-19] MEDS: VITAMIN D 1,000 INTERNATIONAL UNITS TABLET PO SCH (08:52)
[2019-04-19] MEDS: AUGMENTIN 500 MG TAB PO SCH ×2 (08:52→21:34)
[2019-04-19 08:53] VITALS: BP 120/78
[2019-04-19] MEDS: ASCORBIC ACID 500 MG TAB PO SCH (08:53)
[2019-04-19] MEDS: LOSARTAN 50 MG TAB PO SCH (08:53)
[2019-04-19] MEDS: OYSTER SHELL CALCIUM 500 MG TAB PO SCH (08:53)
[2019-04-19] MEDS: HumaLOG INSULIN (NovoLOG) PER UNIT SC SCH ×4 (08:54→21:00)
[2019-04-19] MEDS: LACTIC ACID 12% LOTION 225 GM BTL TOP SCH (08:58)
--- NOTE | 2019-04-19 10:54 | IPNPDOC ---
Subjective Date Seen The patient was seen on 04/19/19. Subjective Chief Complaint/HPI Pt this morning states that he is doing well. He is talking with Hardeep Chaparro from [employer] when I entered the room. Hardeep has new AFOs for him that need to be fitted, he needs and order for this to be done while in the hospital. Hermilo has no new concerns today. General: Denies: Fatigue Constitutional: Denies: Chills, Fever Pulmonary: Denies: Dyspnea, Cough Cardiovascular: Denies: Chest Pain, Palpitations Gastrointestinal: Denies: Nausea, Vomiting, Abdominal Pain, Diarrhea Genitourinary: Denies: Dysuria Musculoskeletal: Denies: Neck Pain Neurological: Reports: Weakness Psych: Reports: Mood Normal Objective Physical Examination General Exam: Positive: Alert, Cooperative, No Acute Distress ENT Exam: Positive: Mucous membr. moist/pink Neck Exam: Positive: Supple Chest Exam: Positive: Clear to auscultation, Normal air movement Heart Exam: Positive: Rate Normal, Regular Rhythm, Normal S1, Normal S2 Abdomen Exam: Positive: Normal bowel sounds, Soft; Negative: Tenderness Extremity Exam: Positive: Normal pulses; Negative: Edema Skin Exam: Positive: Nl turgor and temperature Neuro Exam: Positive: Normal Speech Psych Exam: Positive: Mood NL, Oriented x 3 Assessment /Plan Problems (1) UTI (urinary tract infection) Status: Acute Response to Treatment: Stable, Improving Discussed With: Nurse, Patient, Family with Pt Consent Problem Specific Plan: Monitor Clinically, Repeat Labs Problem Text: 04/19 Pt cont to do well, cont with Augmentin abx D5 04/18 He has tolerated the Augmentin well today. Continue oral abx. Had 3 days of Rocephin before starting orals. Pt with + Hematuria, scheduled for cystoscopy 04/21 with [facility], reeval Friday when/how to proceed. (2) Weakness Status: Acute Response to Treatment: Worse Discussed With: Nurse, Patient Problem Specific Plan: Monitor Clinically Problem Text: 04/19 Anticipate pt to be ARU appropriate if so ok to d/c to ARU today, otherwise can be made ALC. 04/18 He reports that he did well with P/T today. We discussed acute vs [facility] since he is very motivated. He feels that he is not strong enough to go home and not be a significant burden on his . His ultimate plans are to return home. (3) Bladder mass Status: Acute Problem Specific Plan: Monitor Clinically Problem Text: See above. (4) Transaminitis Status: Acute Response to Treatment: Stable Problem Specific Plan: Monitor Clinically Problem Text: Has upcoming outpt visit with Dr Larsen. (5) Diabetes mellitus Status: Chronic Response to Treatment: Stable Problem Text: SSI ordered with FSBS, cons carb diet. Plan/VTE VTE Prophylaxis Ordered?: Yes (On Coumadin) VS, I&O, 24H, Fishbone Vital Signs/I&O Vital Signs Date Time Temp Pulse Resp B/P (MAP) Pulse Ox O2 Delivery O2 Flow Rate FiO2 04/19/19 08:53 120/78 04/19/19 06:00 98.0 88 18 98 04/15/19 21:30 Nasal Cannula 2.0 I&O- Last 24 Hours up to 6 AM 04/19/19 06:00 Intake Total 2100 ml Output Total 400 ml Balance 1700 ml Laboratory Data 24H LABS Laboratory Tests 2 04/18/19 12:02: Bedside Glucose (Misc Panel) 109 04/18/19 16:45: Bedside Glucose (Misc Panel) 131H 04/18/19 21:00: Bedside Glucose (Misc Panel) 192H 04/19/19 05:34: Nucleated Red Blood Cells % (auto) 0.0, Prothrombin Time 24.5H, Prothromb Time International Ratio 2.23, Anion Gap 7L, Glomerular Filtration Rate 54.2, Blood Urea Nitrogen 31H, Creatinine 1.36H, Sodium Level 142, Potassium Level 3.7, Chloride Level 108H, Carbon Dioxide Level 27, Calcium Level 8.5L, Aspartate Amino Transf (AST/SGOT) 86H, Alanine Aminotransferase (ALT/SGPT) 140H, Alkaline Phosphatase 232H, Total Bilirubin 0.5, Total Protein 7.9, Albumin 2.3L, Albumin/Globulin Ratio 0.41L CBC/BMP Laboratory Tests 04/19/19 05:34 Red Blood Count 3.85 L, Mean Corpuscular Volume 93.5, Mean Corpuscular Hemoglobin 31.4, Mean Corpuscular Hemoglobin Concent 33.6, Red Cell Distribution Width 12.9, Calcium Level 8.5 L, Aspartate Amino Transf (AST/SGOT) 86 H, Alanine Aminotransferase (ALT/SGPT) 140 H, Alkaline Phosphatase 232 H, Total Bilirubin 0.5, Total Protein 7.9, Albumin 2.3 L Microbiology Microbiology 04/16/19 Gram Stain - Final, Complete 04/16/19 Sputum Culture - Final, Complete 04/15/19 Blood Culture - Preliminary, Resulted No Growth after 72 hours. All specime... 04/15/19 Urine Culture - Final, Complete Escherichia Coli 04/15/19 Blood Culture - Preliminary, Resulted No Growth after 72 hours. All specime... NESTOR HAAS PA-C Apr 19, 2019 10:54
[2019-04-19 14:00] VITALS: BP 135/66
[2019-04-19 14:41] LABS: BODY FLUID CULTURE Not Indicated (.); LEGIONELLA ANTIGEN URINE Negative (Negative); ORGANISM ID Not indicated. (.); SPECIMEN SOURCE Urine (.); URINE STREP PNEUMONIAE ANTIGEN Negative (Negative)
[2019-04-19] MEDS: WARFARIN SOD 7.5 MG TAB PO SCH (18:37)
[2019-04-20 05:59] LABS: HEMATOCRIT 36.3 % (42.0-52.0); HEMOGLOBIN 12.2 g/dl (13.5-17.5); MEAN CORPUSCULAR HGB CONC 33.6 g/dl (32.0-36.5); MEAN CORPUSCULAR VOLUME 92.4 fl (80.0-96.0); PLATELET COUNT, AUTOMATED 270 10^3/uL (150-450); RED BLOOD COUNT 3.93 10^6/uL (4.30-6.10)
[2019-04-20 06:00] VITALS: BP 110/73
[2019-04-20 06:11] LABS: INR 2.19; PROTHROMBIN TIME 24.2 SECONDS (11.8-14.0)
[2019-04-20 06:15] LABS: ALBUMIN 2.4 GM/DL (3.2-5.2); BILIRUBIN,TOTAL 0.4 MG/DL (0.2-1.0); CALCIUM LEVEL 8.7 MG/DL (8.8-10.2); CREATININE FOR GFR 1.25 MG/DL (0.70-1.30); GLOMERULAR FILTRATION RATE 59.8 (>42); POTASSIUM SERUM 3.8 MEQ/L (3.5-5.1); TOTAL PROTEIN 7.8 GM/DL (6.4-8.2)
[2019-04-20 08:00] VITALS: BP 128/74
[2019-04-20] MEDS: ASCORBIC ACID 500 MG TAB PO SCH (08:50)
[2019-04-20] MEDS: AUGMENTIN 500 MG TAB PO SCH ×2 (08:50→21:35)
[2019-04-20] MEDS: VITAMIN D 1,000 INTERNATIONAL UNITS TABLET PO SCH (08:50)
[2019-04-20] MEDS: MIRALAX *UNIT DOSE* 17GM PACKET PO SCH (08:50)
[2019-04-20] MEDS: OYSTER SHELL CALCIUM 500 MG TAB PO SCH (08:50)
[2019-04-20] MEDS: DOCUSATE SODIUM 100 MG CAP PO SCH ×2 (08:51→21:35)
[2019-04-20] MEDS: LOSARTAN 50 MG TAB PO SCH (08:51)
[2019-04-20] MEDS: HumaLOG INSULIN (NovoLOG) PER UNIT SC SCH ×4 (09:05→21:35)
[2019-04-20] MEDS: LACTIC ACID 12% LOTION 225 GM BTL TOP SCH (09:09)
--- NOTE | 2019-04-20 10:15 | IPNPDOC ---
Subjective Date Seen The patient was seen on 04/20/19. Subjective Chief Complaint/HPI Pt this morning without new concerns. He has received his new AFOs. ARU is ready to accept him for rehab. General: Denies: Fatigue Constitutional: Denies: Chills, Fever Skin: Denies: Rash Pulmonary: Denies: Dyspnea, Cough Cardiovascular: Denies: Chest Pain, Palpitations Gastrointestinal: Denies: Nausea, Vomiting, Abdominal Pain, Diarrhea, Constipation Neurological: Reports: Weakness Psych: Reports: Mood Normal Objective Physical Examination General Exam: Positive: Alert, Cooperative, No Acute Distress ENT Exam: Positive: Mucous membr. moist/pink Neck Exam: Positive: Supple Chest Exam: Positive: Clear to auscultation, Normal air movement Heart Exam: Positive: Rate Normal, Regular Rhythm, Normal S1, Normal S2 Abdomen Exam: Positive: Normal bowel sounds, Soft; Negative: Tenderness Extremity Exam: Positive: Normal pulses; Negative: Edema Skin Exam: Positive: Nl turgor and temperature Neuro Exam: Positive: Normal Speech Psych Exam: Positive: Mood NL, Oriented x 3 Assessment /Plan Problems (1) UTI (urinary tract infection) Status: Acute Response to Treatment: Stable, Improving Discussed With: Nurse, Patient, Family with Pt Consent Problem Specific Plan: Monitor Clinically, Repeat Labs Problem Text: 04/20 Augmentin, Abx /04/19 Pt cont to do well, cont with Augmentin abx D5 04/18 He has tolerated the Augmentin well today. Continue oral abx. Had 3 days of Rocephin before starting orals. Pt with + Hematuria, scheduled for cystoscopy 04/21 with [facility], reeval Friday when/how to proceed. (2) Weakness Status: Acute Response to Treatment: Worse Discussed With: Nurse, Patient Problem Specific Plan: Monitor Clinically Problem Text: 04/20 ARU bed available for pt, plan to d/c as soon as cysto completed. 04/19 Anticipate pt to be ARU appropriate if so ok to d/c to ARU today, otherwise can be made ALC. 04/18 He reports that he did well with P/T today. We discussed acute vs sub- acute rehab since he is very motivated. He feels that he is not strong enough to go home and not be a significant burden on his . His ultimate plans are to return home. (3) Bladder mass Status: Acute Problem Specific Plan: Monitor Clinically Problem Text: plan for Cysto later today, I have spoke with Dr Mcneil from [facility]. (4) Transaminitis Status: Acute Response to Treatment: Stable Problem Specific Plan: Monitor Clinically Problem Text: Pt has appt 05/06 with GI for recent abn MRI liver suggestive of a liver mass. (5) Diabetes mellitus Status: Chronic Response to Treatment: Stable Problem Text: SSI ordered with FSBS, cons carb diet. Plan/VTE VTE Prophylaxis Ordered?: Yes (On Coumadin) VS, I&O, 24H, Fishbone Vital Signs/I&O Vital Signs Date Time Temp Pulse Resp B/P (MAP) Pulse Ox O2 Delivery O2 Flow Rate FiO2 04/20/19 08:00 80 18 128/74 (92) 97 04/20/19 06:00 97.5 04/15/19 21:30 Nasal Cannula 2.0 I&O- Last 24 Hours up to 6 AM 04/20/19 06:00 Intake Total 2130 ml Output Total 2000 ml Balance 130 ml Laboratory Data 24H LABS Laboratory Tests 2 04/19/19 11:27: Bedside Glucose (Misc Panel) 151H 04/19/19 16:41: Bedside Glucose (Misc Panel) 103 04/19/19 20:43: Bedside Glucose (Misc Panel) 249H 04/20/19 05:14: Nucleated Red Blood Cells % (auto) 0.0, Prothrombin Time 24.2H, Prothromb Time International Ratio 2.19, Anion Gap 8, Glomerular Filtration Rate 59.8, Blood Urea Nitrogen 30H, Creatinine 1.25, Sodium Level 141, Potassium Level 3.8, Chloride Level 107, Carbon Dioxide Level 26, Calcium Level 8.7L, Aspartate Amino Transf (AST/SGOT) 82H, Alanine Aminotransferase (ALT/SGPT) 137H, Alkaline Phosphatase 209H, Total Bilirubin 0.4, Total Protein 7.8, Albumin 2.4L, Albumin/Globulin Ratio 0.44L CBC/BMP Laboratory Tests 04/20/19 05:14 Red Blood Count 3.93 L, Mean Corpuscular Volume 92.4, Mean Corpuscular Hemoglobin 31.0, Mean Corpuscular Hemoglobin Concent 33.6, Red Cell Distribution Width 12.8, Calcium Level 8.7 L, Aspartate Amino Transf (AST/SGOT) 82 H, Alanine Aminotransferase (ALT/SGPT) 137 H, Alkaline Phosphatase 209 H, Total Bilirubin 0.4, Total Protein 7.8, Albumin 2.4 L Microbiology Microbiology 04/16/19 Gram Stain - Final, Complete 04/16/19 Sputum Culture - Final, Complete 04/15/19 Blood Culture - Preliminary, Resulted No Growth after 72 hours. All specime... 04/15/19 Urine Culture - Final, Complete Escherichia Coli 04/15/19 Blood Culture - Preliminary, Resulted No Growth after 72 hours. All specime... NESTOR HAAS PA-C Apr 20, 2019 10:15
--- NOTE | 2019-04-20 12:02 | IPNPDOC ---
Subjective Review oF Systems Chief Complaint The patient is a 74-year-old male admitted with a reason for visit of Weakness. He also has a h/o hematuria. Events since Last Encounter He also reports some left scrotal swelling. He was scheduled for outpatient cystoscopy tomorrow but was admitted this weekend. He denies any pain with voiding at present. Objective Physical Examination Heart Exam: Positive: Rate Normal, Regular Rhythm, Normal S1, Normal S2 Male Exam: Normal Genital Exam (except for moderate left hydrocele) Vital Signs/I&O Vital Signs Date Time Temp Pulse Resp B/P (MAP) Pulse Ox O2 Delivery O2 Flow Rate FiO2 04/20/19 08:00 80 18 128/74 (92) 97 04/20/19 06:00 97.5 04/15/19 21:30 Nasal Cannula 2.0 I&O- Last 24 Hours up to 6 AM 04/20/19 05:59 Intake Total 2130 ml Output Total 1900 ml Balance 230 ml Laboratory Data Labs 24H Laboratory Tests 2 04/19/19 16:41: Bedside Glucose (Misc Panel) 103 04/19/19 20:43: Bedside Glucose (Misc Panel) 249H 04/20/19 05:14: Nucleated Red Blood Cells % (auto) 0.0, Prothrombin Time 24.2H, Prothromb Time International Ratio 2.19, Anion Gap 8, Glomerular Filtration Rate 59.8, Blood Urea Nitrogen 30H, Creatinine 1.25, Sodium Level 141, Potassium Level 3.8, Chloride Level 107, Carbon Dioxide Level 26, Calcium Level 8.7L, Aspartate Amino Transf (AST/SGOT) 82H, Alanine Aminotransferase (ALT/SGPT) 137H, Alkaline Phosphatase 209H, Total Bilirubin 0.4, Total Protein 7.8, Albumin 2.4L, Albumin/Globulin Ratio 0.44L 04/20/19 10:46: Tumor Marker Alpha Fetoprotein 3.6 CBC/BMP Laboratory Tests 04/20/19 05:14 Red Blood Count 3.93 L, Mean Corpuscular Volume 92.4, Mean Corpuscular Hemoglobin 31.0, Mean Corpuscular Hemoglobin Concent 33.6, Red Cell Distribution Width 12.8, Calcium Level 8.7 L, Aspartate Amino Transf (AST/SGOT) 82 H, Alanine Aminotransferase (ALT/SGPT) 137 H, Alkaline Phosphatase 209 H, Total Bilirubin 0.4, Total Protein 7.8, Albumin 2.4 L FSBS Laboratory Tests Test 04/19/19 16:41 04/19/19 20:43 Range/Units Bedside Glucose (Misc Panel) 103 249 83-110 MG/DL Microbiology Microbiology 04/16/19 Gram Stain - Final, Complete 04/16/19 Sputum Culture - Final, Complete 04/15/19 Blood Culture - Preliminary, Resulted No Growth after 72 hours. All specime... 04/15/19 Urine Culture - Final, Complete Escherichia Coli 04/15/19 Blood Culture - Preliminary, Resulted No Growth after 72 hours. All specime... Assessment/Plan Date Seen The patient was seen on 04/20/19. Problems (1) UTI (urinary tract infection) Status: Acute (2) Weakness Status: Acute (3) Bladder mass Status: Acute (4) Transaminitis Status: Acute (5) Diabetes mellitus Status: Chronic Plan/VTE VTE Prophylaxis Ordered?: Yes (On Coumadin) Plan Plan for cystoscopy in the OR today. Patient made NPO this morning. CATRACHO PRATT MD Apr 20, 2019 12:02
[2019-04-20 14:00] VITALS: BP 125/72
[2019-04-20] MEDS ORDERED: CONRAY-60 60% 50ML VIAL (Q9961) As Ordered ONE (15:07)
[2019-04-20] MEDS ORDERED: LIDOCAINE 2% 5ML JELLY UROJET As Ordered ONE (15:18)
[2019-04-20 15:52] VITALS: BP 136/79
[2019-04-20] MEDS ORDERED: fentaNYL 100 MCG/2 ML INJECTION (J3010) As Ordered ONE (16:12)
[2019-04-20] MEDS ORDERED: LIDOCAINE 2% INJ 100 MG/5 ML SDV (FOR ANES.) As Ordered ONE (16:13)
[2019-04-20] MEDS ORDERED: PROPOFOL 200 MG/20 ML VIAL As Ordered ONE (16:13)
[2019-04-20] MEDS ORDERED: MIDAZOLAM INJ 2 MG/2 ML VIAL (J2250) As Ordered ONE (16:13)
[2019-04-20] MEDS ORDERED: ONDANSETRON 4MG/2ML VIAL (J2405) As Ordered ONE (16:13)
[2019-04-20] MEDS ORDERED: dexameTHASONE 4 MG/ML 1ML VIAL (J1100) As Ordered ONE (16:13)
[2019-04-20] MEDS ORDERED: ePHEDrine SULFATE 25 MG/5 ML(5MG/ML) SYRINGE As Ordered ONE (17:07)
[2019-04-20] MEDS ORDERED: oxyCODONE 5MG TAB PO PRN (17:30)
[2019-04-20] MEDS ORDERED: LR 1,000 ML IV SCH (17:30)
[2019-04-20] MEDS ORDERED: fentaNYL 100 MCG/2 ML INJECTION (J3010) IV PRN (17:30)
[2019-04-20] MEDS ORDERED: ONDANSETRON 4MG/2ML VIAL (J2405) IV PRN (17:30)
[2019-04-20 17:50] VITALS: BP 133/68
[2019-04-20] MEDS: WARFARIN SOD 7.5 MG TAB PO SCH (18:35)
[2019-04-20 22:00] VITALS: BP 136/89
[2019-04-21 06:00] VITALS: BP 145/79
[2019-04-21 08:14] VITALS: BP 141/77
[2019-04-21] MEDS: HumaLOG INSULIN (NovoLOG) PER UNIT SC SCH ×2 (08:31→11:37)
[2019-04-21] MEDS: DOCUSATE SODIUM 100 MG CAP PO SCH (09:20)
[2019-04-21] MEDS: AUGMENTIN 500 MG TAB PO SCH (09:21)
[2019-04-21] MEDS: OYSTER SHELL CALCIUM 500 MG TAB PO SCH (09:21)
[2019-04-21] MEDS: ASCORBIC ACID 500 MG TAB PO SCH (09:21)
[2019-04-21] MEDS: MIRALAX *UNIT DOSE* 17GM PACKET PO SCH (09:21)
[2019-04-21] MEDS: VITAMIN D 1,000 INTERNATIONAL UNITS TABLET PO SCH (09:21)
[2019-04-21] MEDS: LOSARTAN 50 MG TAB PO SCH (09:21)
[2019-04-21] MEDS: LACTIC ACID 12% LOTION 225 GM BTL TOP SCH (09:23)
[2019-04-21] MEDS ORDERED: AMOX500T2 PO (10:41)
--- NOTE | 2019-04-21 11:37 | RO ---
DATE OF OPERATIVE PROCEDURE: 04/20/2019 PREOPERATIVE DIAGNOSIS: Hematuria. 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 OPERATIVE PROCEDURE PERFORMED: Cystoscopy. SURGEON: Everton Mcneil MD REACTOR K[employer]TLE OPERATOR: ANESTHESIA: Local. ESTIMATED BLOOD LOSS: Minimal. INDICATION: Mr. Manoj Smith is a 74-year-old gentleman who was admitted to the hospital for weakness who had a history of hematuria. He now presents for a flexible cystoscopy prior to transfer to inpatient rehabilitation. His upper tracts were normal. PROCEDURE IN DETAIL: The patient was brought into the operating room, placed in the supine position; and after administration of local anesthesia with lidocaine gel, he was prepped in the usual sterile fashion. Flexible cystoscopy was performed. The anterior and posterior urethra were noted to be normal. The prostate revealed prior transurethral resection of the prostate with either regrowth or residual tissue noted on the patient's left thigh. There was no obvious obstruction. The bladder was entered without difficulty. Upon entrance into the bladder, there were some erythematous patches noted over the posterior and left lateral flores. The ureteral orifices were in a normal anatomical position and produced clear efflux. There were no other mucosal lesions identified. There was grade 1-2 trabeculations appreciated. A barbotage urine sample was obtained, and this was sent for cytology. Cystoscope was removed, and the patient was transferred to a bed and taken to the postanesthesia care unit in good condition. Of note, the needle and instrument count were correct at the conclusion of the case.
== END 2019-04-21 13:07 | DRG 690 ==
LOC: M ED 13:25 → EDBD 13:25 → M ED INP 17:12 → M MSPAV 22:07
PROVIDERS: ADMIT Internal Medicine; ATTEND Family Medicine
PROC: 0TJB8ZZ Inspection of Bladder, Via Natural or Artificial Opening Endoscopic (ICD-10-PCS; principal; 2019-04-20 16:00)
DX: N39.0 Urinary tract infection, site not specified (principal); R53.1 Weakness; E11.9 Type 2 diabetes mellitus without complications; I10 Essential (primary) hypertension; G47.33 Obstructive sleep apnea (adult) (pediatric); G35 Multiple sclerosis; E78.5 Hyperlipidemia, unspecified; N32.89 Other specified disorders of bladder; R31.9 Hematuria, unspecified; R33.9 Retention of urine, unspecified; Z79.84 Long term (current) use of oral hypoglycemic drugs; Z79.01 Long term (current) use of anticoagulants; Z79.899 Other long term (current) drug therapy; Z88.8 Allergy status to other drugs, medicaments and biological substances; Z87.440 Personal history of urinary (tract) infections

== ENCOUNTER 2019-04-21 10:32 | Inpatient (IN) | payer MEDICARE ==
[~2019-04-21] VITALS: Ht 175.3 cm; Wt 77.6 kg
[~2019-04-21 10:32] MED LIST changes: +CEPH500C PO; +CVS1CAP2 PO; +OYST1TAB PO
[2019-04-21] MEDS ORDERED: AMOX500T2 PO (10:41)
[2019-04-21 13:24] VITALS: BP 152/85
[2019-04-21] MEDS ORDERED: GLUCOSE 4 GM CHEW TABLET PO PRN (16:45)
[2019-04-21] MEDS ORDERED: BISACODYL 5 MG TAB PO PRN (16:45)
[2019-04-21] MEDS ORDERED: ACETAMINOPHEN TAB 650MG DOSE (2X325MG) PO PRN (16:45)
[2019-04-21] MEDS ORDERED: DEXTROSE 50% 50 ML SYRINGE IV PRN (16:45)
[2019-04-21] MEDS ORDERED: GLUCAGON FOR INJ 1 MG VIAL (J1610) SC PRN (16:45)
[2019-04-21] MEDS ORDERED: IPRATROPIUM 0.5MG/ALBUTEROL 2.5MG INH SOL UD 3ML (DUONEB)(J7620) NEB PRN (16:45)
[2019-04-21] MEDS: WARFARIN SOD 7.5 MG TAB PO SCH (17:19)
[2019-04-21] MEDS: HumaLOG INSULIN (NovoLOG) PER UNIT SC SCH ×2 (17:19→21:00)
[2019-04-21 19:23] VITALS: BP 172/82
[2019-04-21] MEDS ORDERED: metFORMIN (GLUCOPHAGE) 1000 MG TABLET PO SCH (21:00)
[2019-04-21] MEDS: AUGMENTIN 500 MG TAB PO SCH (21:40)
[2019-04-21] MEDS: LACTOBACILLUS ACIDOPHILUS CAP (BACID) PO SCH (21:40)
[2019-04-21] MEDS: DOCUSATE SODIUM 100 MG CAP PO SCH (21:43)
[2019-04-21] MEDS: SENNA 8.6 MG TAB (SENOKOT) PO SCH (21:43)
[2019-04-22 05:57] VITALS: BP 99/62
[2019-04-22 07:08] LABS: BASO # 0.1 10^3/uL (0.0-0.2); EOS # 0.3 10^3/uL (0.0-0.5); EOS % 4.2 % (0.0-3.0); HEMATOCRIT 37.1 % (42.0-52.0); HEMOGLOBIN 12.7 g/dl (13.5-17.5); LYMPH # 2.1 10^3/uL (1.5-5.0); LYMPH % 31.8 % (24.0-44.0); MEAN CORPUSCULAR HEMOGLOBIN 31.9 pg (27.0-33.0); MEAN CORPUSCULAR HGB CONC 34.2 g/dl (32.0-36.5); MEAN CORPUSCULAR VOLUME 93.2 fl (80.0-96.0); MONO # 0.5 10^3/uL (0.0-0.8); MONO % 7.3 % (0.0-5.0); NEUTROPHILS # 3.7 10^3/uL (1.5-8.5); NEUTROPHILS % 54.7 % (36.0-66.0); PLATELET COUNT, AUTOMATED 325 10^3/uL (150-450); RED BLOOD COUNT 3.98 10^6/uL (4.30-6.10); WHITE BLOOD COUNT 6.7 10^3/uL (4.0-10.0)
[2019-04-22 07:24] LABS: INR 2.39; PROTHROMBIN TIME 25.9 SECONDS (11.8-14.0)
[2019-04-22] MEDS: HumaLOG INSULIN (NovoLOG) PER UNIT SC SCH ×4 (07:30→20:36)
[2019-04-22 07:35] LABS: ALBUMIN 2.5 GM/DL (3.2-5.2); BILIRUBIN,TOTAL 0.5 MG/DL (0.2-1.0); CALCIUM LEVEL 8.8 MG/DL (8.8-10.2); CREATININE FOR GFR 1.37 MG/DL (0.70-1.30); GLOMERULAR FILTRATION RATE 53.8 (>42); POTASSIUM SERUM 4.2 MEQ/L (3.5-5.1); TOTAL PROTEIN 8.1 GM/DL (6.4-8.2)
[2019-04-22] MEDS: ASCORBIC ACID 500 MG TAB PO SCH (08:48)
[2019-04-22] MEDS: LACTOBACILLUS ACIDOPHILUS CAP (BACID) PO SCH ×3 (08:48→20:35)
[2019-04-22] MEDS: AUGMENTIN 500 MG TAB PO SCH ×2 (08:48→20:35)
[2019-04-22] MEDS: DOCUSATE SODIUM 100 MG CAP PO SCH ×2 (08:48→20:35)
[2019-04-22] MEDS: OYSTER SHELL CALCIUM 500 MG TAB PO SCH (08:48)
[2019-04-22] MEDS: VITAMIN D 1,000 INTERNATIONAL UNITS TABLET PO SCH (08:51)
[2019-04-22] MEDS ORDERED: LOSARTAN 50 MG TAB PO SCH (09:00)
[2019-04-22] MEDS ORDERED: FLUBLOK(EGG FREE)(QUAD)INFLUENZA VACC 0.5ML SYRINGE (90682)18YRS&OLDER IM ONE (09:00)
[2019-04-22] MEDS ORDERED: METOPROLOL TART 25 MG TABLET PO SCH (10:45)
--- NOTE | 2019-04-22 13:31 | IPN ---
DATE: 04/22/2019 FOLLOWUP PROGRESS NOTE/CONSULT: Mr. Smith is admitted acute rehabilitation unit (ARU) for continued rehabilitation related to multiple sclerosis. He also has history of diabetes mellitus, hypertension, obstructive sleep apnea and hematuria. He had been scheduled for evaluation of a bladder mass with cystoscopy and a liver lesion, which was identified April 09 MRI of the liver. He is currently scheduled for followup with Dr. Larsen on May 06 for the liver mass and he has cystoscopy the day before admission to acute rehabilitation unit (ARU) which did not show any mass in the bladder. It showed some red areas on a biopsy of the bladder where cytology was done at that time. His current multiple sclerosis (MS) treatment is through the [facility] and sees a neurologist at the [facility] in [place]. Not currently on disease modifying agent. It seems according to the patient's history that he was receiving intermittent treatment with [facility]. He had significant weakness, which is limiting his activity at home, which contributed to his admission to hospital and admission to ARU. He seems to be progressing well at this time and does not seem according to the consultation of Dr. Sophie Fermin with multiple sclerosis specialist at the [facility] that he needs IV steroids at this time. He has a history of ALLERGY associated with use of LISINOPRIL. He had a rash on the flexor creases, which seemed to go away after changing to losartan. He has had liver function test abnormalities for many years. Going back in his record it seems that he has had liver function test abnormalities dating back as far as far there are [employer] data and the severity has waxed and waned. He has tested negative for hepatitis C, hepatitis A, hepatitis B. Possible adverse drug reaction was thought to be contributor back when he was taking Avonex for his MS and he was subsequently on Copaxone without abnormalities persist. Of particular of note is the fact that losartan is a med that is associated with potential for induction of drug associated hepatitis. Family history is noncontributory. Past medical history includes the problems listed above. SOCIAL HISTORY: . His daughter is a dietitian who works for [employer]. Other allergies include HMG-CoA REDUCTASE INHIBITORS, MODAFINIL, OMEPRAZOLE, and GABAPENTIN. SOCIAL HISTORY: He is not a smoker and no alcohol use. EXAMINATION: Patient is alert, pleasant, cooperative, in no apparent distress. Blood pressure 103/67 this morning. He was 172/82 yesterday evening, 99/62 this morning. HEENT: Normocephalic, atraumatic. Pupils equal. Full extraocular movements. Facies symmetrical. Lungs: Clear. No wheezing, rales or rhonchi. Heart: Regular rhythm without murmurs. Abdomen: Soft. No guarding. Nontender. Lower extremity weakness is noted. This is a part of his MS syndrome. Upper extremity strength seems to be functionally normal. He seems to have adequate bladder or bowel control. LABORATORY DATA: Creatinine is 1.37, which is a little higher than recent measurements. Liver tests are still abnormal with alkaline phosphatase 207, ALT 119, AST 66, albumin is 2.5. Hemoglobin 12.7 with a white count of 6700 and normal platelet count. PTT is 2.39. ASSESSMENT: Hypertension, diabetes mellitus, multiple sclerosis, chronic nonspecific transaminasemia, lower extremity weakness limiting mobility in ARU to improve same. PLAN: He will continues his current medication regimen. Note that Dr. Sophie Fermin has discontinued losartan due to low pressures and climbing creatinine and substituted amlodipine 5 mg daily. He also had been on metoprolol 25 as a tartrate every 8 hours and this agent has also been discontinued. He is currently on amoxicillin/clavulanic acid 500 mg by mouth twice a day and insulin sliding scale, warfarin 7.5 mg daily, dose adjusted by international normalized ratio (INR) measurement. Plan recommend continue daily INR measurements. Basic profile will be ordered to be checked tomorrow. Recommend recheck liver enzymes in approximately 3 days to see if would begin to make a difference improving his transaminasemia with discontinuation of the losartan since it does have the potential of being hepatotoxic. Will continue to follow Mr. Smith. At this point, metformin has been discontinued, which is reasonable considering his sugar control, it seems to be satisfactorily maintained in hospital and creatinine of 1.3 would be acceptable to resume metformin at his usual dose. Would suggestive if we are going to use metformin 1000 mg as a daily dose consider using extended release form.
[2019-04-22 14:00] VITALS: BP 118/64
--- NOTE | 2019-04-22 16:02 | HPEPDOC ---
A Operator Note DATE OF ADMISSION: 04-21-19 SOURCE OF ADMISSION INFORMATION: [facility] records and patient CHIEF COMPLAINT: MS with worsening weakness after UTI HISTORY OF PRESENT ILLNESS: 74M pmh MS, HTN, ROCHELLE, DM, Afib on Coumadin, BPH s/p TURP who presented to [facility] ED with hematuria and worsening lower extremity weakness with difficulty walking. Patient was fond to have leukocytosis with wbc 21.8 and UA suspicious for urinary tract infection. He was started on Ceftriaxone, his urine culture grew E. coli and later transitioned to Augmentin. There was a concern that his weakness was due to a possible pneumonia for which CT chest showed, Noncalcified pleural-based nodule in the right lower lobe measures 6 mmfusiform dilatation of the ascending thoracic aorta which measures 3.7 cm. maximally. His leukocytosis and hematuria improved. He underwent a cystoscopy on 04-20-19 without complication and evaluated by therapy where he was found to be below his prior level of function and deemed medically appropriate for discharge to ARU on 04-21-19. REVIEW OF SYSTEMS: The following is a completed review of systems and has been reviewed. Review of systems otherwise unremarkable. PAIN: Patient self reports no pain EYES: No recent vision changes EARS, NOSE, & THROAT: No throat pain, or dysphagia, or rhinorrhea CARDIOVASCULAR: Denies chest pain or palpitations PULMONARY: Denies shortness of breath GASTROINTESTINAL: Denies constipation/diarrhea GENITOURINARY: +hematuria MUSCULOSKELETAL: weakness, R>L NEUROLOGICAL:+MS HEMATOLOGICAL:+hematuria SKIN: no rash PSYCHIATRIC: Unremarkable All other review of systems found to be negative. PAST MEDICAL HISTORY: as per HPI ALLERGIES: Please see below. MEDICATIONS: Please see below. FAMILY HISTORY: non-contributory SOCIAL HISTORY:retired, worked in [employer], no etoh, illicit drugs, or smoking DIET: regular PHYSICAL EXAMINATION: VITAL SIGNS: Please see below. GENERAL: Pleasant and cooperative. No acute distress. HEENT: PERRL. Extraocular movements intact. Clear conjunctiva CARDIOVASCULAR: Regular rate and rhythm. No murmurs, rubs, or gallops LUNGS: Clear to auscultation bilaterally. No wheezes. No rhonchi ABDOMEN: Soft, nontender, nondistended. Positive bowel sounds. Normal active b owel sounds NEUROLOGICAL: [Alert and oriented times three. Cranial nerves II through XII grossly intact. Sensation grosslyintact to light touch all 4 extremities 3+ patellar reflexes +/-Hoffmans (-) Clonus EXTREMITIES: 5\5 strength bilateral upper extremities. 3/5 right hip flexors, knee extensors, 3/5 ankle DF and 3+/5 EHL, 4/5 plantar flexion left hip flexors 3+/5, 4/5 knee extension/ankle DF/EHL and plantar flexion mild atrophy RLE when compared to LLE pedal pulses intact SKIN: hyperpigmented lower calves and feet LABORATORY DATA: Please see below. IMAGING:Imaging documentation personally reviewed by record. FUNCTIONAL STATUS: Premorbid: Mod- Independent with all activities of daily life as well as mobility household distances, uses scooter for community On Admission: Contact guard assistance for bathing, upper body dressing, bed chair and wheelchair transfers, toilet transfers, ambulation. GOALS: Mod- Independent with all activities of daily life as well as mobility household distances, uses scooter for community ASSESSMENT:74-year-old M with past medical history of MS and Afib who presents status post sepsis secondary to UTI s/p cystoscopy with worsening weakness PLAN: 1. 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 cardio: pmh HTN c/u Michelle, medicine consulted to assist in management Afib- on coumadin, monitor INRs 4. resp: encourage incentive spirometry, f.uw ith PMD regarding incidental finding on CT chest 5. GI: patient with liver lesion, has f/u with Dr. Larsen 05-06-19 6. DVT ppx: on Warfarin 7. Endo: c/u home metformin and ISS 8. : finish up course of Augmentin for E. coli UTI, monitor for hematuria- currently resolved 9. Heme: monitor Hgb in setting of intermittent hematuria 10. Dispo: tbd POST ADMISSION PHYSICIAN EVALUATION: Medical and functional status: Description of medical status, medical assessment: As above. Rehabilitation diagnosis and current and prior cold morbid medical conditions as above. Risk of complications and plans to mitigate them as above. Description of functional status current status is as above. Prior status as above. Status compared to preadmission: There are no clinically significant differences between the patient's current status and the information described on the preadmission screening document. Treatment plan anticipated: Treatment plan is as described above. Required disciplines including physical therapy, occupational therapy, others as noted above. Intensity of services: 3 hours a day, 6 days a week. Special considerations: There are no specific special or safety considerations that would likely preclude immediate implementation of an intensive rehabilitation program or subsequently influence the plan of care. ATTESTATION: Considering all the information above, it is my best judgment that this patient requires intensive rehabilitation therapy as described above and an inpatient hospital environment due to the complexity of nursing, medical, and rehabilitation needs required by the patient. Furthermore, this patient can reasonably be expected to participate in an benefit from an inpatient rehabilitation stay with an interdisciplinary team approach to the delivery of rehabilitation care under the direction and supervision of rehabilitation physician. PROGNOSIS: Excellent ESTIMATED LENGTH OF STAY:14-16 days. PROJECTED DISCHARGE DESTINATION: Home with family support and any durable medical equipment required to increase functional safety and mobility. TIME SPENT COUNSELING AND COORDINATING INITIAL CARE: Greater than 70 minutes. Vital Signs Vital Sign - Last 24 Hours 04/21/19 04/22/19 04/22/19 19:23 05:57 08:50 Temp 98.2 96.8 Pulse 80 74 Resp 18 17 B/P (MAP) 172/82 (112) 99/62 (74) 103/67 Pulse Ox 96 96 Laboratory Data CBC/BMP Laboratory Tests 04/22/19 06:41 Red Blood Count 3.98 L, Mean Corpuscular Volume 93.2, Mean Corpuscular Hemoglobin 31.9, Mean Corpuscular Hemoglobin Concent 34.2, Red Cell Distribution Width 13.0, Neutrophils (%) (Auto) 54.7, Lymphocytes (%) (Auto) 31.8, Monocytes (%) (Auto) 7.3 H, Eosinophils (%) (Auto) 4.2 H, Basophils (%) (Auto) 1.0, Neutrophils # (Auto) 3.7, Lymphocytes # (Auto) 2.1, Monocytes # (Auto) 0.5, Eo sinophils # (Auto) 0.3, Basophils # (Auto) 0.1, Calcium Level 8.8, Aspartate Amino Transf (AST/SGOT) 66 H, Alanine Aminotransferase (ALT/SGPT) 119 H, Alkaline Phosphatase 207 H, Total Bilirubin 0.5, Total Protein 8.1, Albumin 2.5 L Labs 24H Laboratory Tests 2 04/22/19 06:41: Immature Granulocyte % (Auto) 1.0, White Blood Count 6.7, Red Blood Count 3.98L, Hemoglobin 12.7L, Hematocrit 37.1L, Mean Corpuscular Volume 93.2, Mean Corpuscular Hemoglobin 31.9, Mean Corpuscular Hemoglobin Concent 34.2, Red Cell Distribution Width 13.0, Platelet Count 325, Neutrophils (%) (Auto) 54.7, Lymphocytes (%) (Auto) 31.8, Monocytes (%) (Auto) 7.3H, Eosinophils (%) (Auto) 4.2H, Basophils (%) (Auto) 1.0, Neutrophils # (Auto) 3.7, Lymphocytes # (Auto) 2.1, Monocytes # (Auto) 0.5, Eosinophils # (Auto) 0.3, Basophils # (Auto) 0.1, Nucleated Red Blood Cells % (auto) 0.0, Prothrombin Time 25.9H, Prothromb Time International Ratio 2.39, Anion Gap 6L, Glomerular Filtration Rate 53.8, Blood Urea Nitrogen 30H, Creatinine 1.37H, Sodium Level 140, Potassium Level 4.2, Chlo ride Level 107, Carbon Dioxide Level 27, Calcium Level 8.8, Aspartate Amino Transf (AST/SGOT) 66H, Alanine Aminotransferase (ALT/SGPT) 119H, Alkaline Phosphatase 207H, Total Bilirubin 0.5, Total Protein 8.1, Albumin 2.5L, Albumin/Globulin Ratio 0.45L Home Medications Scheduled Alpha Lipoic Acid (Alpha Lipoic Acid) 200 Mg Tab, 200 MG PO BID, (Reported) Ammonium Lactate (Ammonium Lactate) 12% Cream..g., 1 DOSE TOP DAILY, (Reported) APPLIES TO ENTIRE BODY AFTER SHOWER Amoxicillin/Potassium Clav (Amox-Clav 500-125 mg Tablet) 1 Each Tablet, 500 MG PO BID Ascorbic Acid (Vitamin C) 500 Mg Cap, 500 MG PO DAILY, (Reported) Calcium Carbonate (Calcium) 500 Mg Tablet, 500 MG PO DAILY, (Reported) Cholecalciferol (Vitamin D3) (Vitamin D3) 1,000 Unit Capsule, 1,000 UNIT PO DAILY, (Reported) Docusate Sodium (Docusate Sodium) 100 Mg Cap, 200 MG PO BID, (Reported) Lactobacillus Combo No.10 (Probiotic) 1 Each Capsule, 1 CAP PO BID, (Reported) TO PREVENT DIARRHEA WHILE ON KEFLEX Losartan Potassium (Losartan Potassium) 50 Mg Tablet, 50 MG PO DAILY, (Reported) Metformin HCl (Metformin ER Osmotic) 1,000 Mg Tab, 1,000 MG PO QPM, (Reported) Polyethylene Glycol 3350 (Miralax) 119 Gm Powder, 17 GM PO DAILY, (Reported) Warfarin Sodium (Coumadin) 7.5 Mg Tab, 7.5 MG PO QPM, (Reported) Allergies Coded Allergies: Dgjvvun-Kbw-Wft Reductase Inhibitor (Verified Adverse Reaction, Unknown, 04/13/19) gabapentin (Verified Adverse Reaction, Unknown, elevates MS symptoms, 04/13/19) glatiramer (copolymer 1) (Verified Adverse Reaction, Unknown, weakness, 04/13/19) modafinil (Verified Adverse Reaction, Unknown, elevate MS symptoms, 04/13/19) omeprazole (Verified Adverse Reaction, Unknown, elevated MS symptoms, 04/13/19) A-FIB/CHADSVASC A-FIB History Current/History of A-Fib/PAF?: No KRISTINA CADENA MD Apr 22, 2019 16:02
--- NOTE | 2019-04-22 16:05 | IPNPDOC ---
PM&R Progress Note DATE OF SERVICE: Apr 22, 2019 Fast [employer] Att[employer] Progress Note Subjective: Patient seen in therapy and later in his room. He says his urination went better last night and he is looking forward to being able to use a bedside commode. REVIEW OF SYSTEMS: The following is a completed review of systems and has been reviewed. Review of systems otherwise unremarkable. PAIN: Patient self reports no pain EYES: No recent vision changes EARS, NOSE, & THROAT: No throat pain, or dysphagia, or rhinorrhea CARDIOVASCULAR: Denies chest pain or palpitations PULMONARY: Denies shortness of breath GASTROINTESTINAL: Denies constipation/diarrhea GENITOURINARY: +hematuria MUSCULOSKELETAL: weakness, R>L NEUROLOGICAL:+MS HEMATOLOGICAL:+hematuria SKIN: no rash PSYCHIATRIC: Unremarkable All other review of systems found to be negative. PHYSICAL EXAMINATION: VITAL SIGNS: Please see below. GENERAL: Pleasant and cooperative. No acute distress. HEENT: PERRL. Extraocular movements intact. Clear conjunctiva CARDIOVASCULAR: Regular rate and rhythm. No murmurs, rubs, or gallops LUNGS: Clear to auscultation bilaterally. No wheezes. No rhonchi ABDOMEN: Soft, nontender, nondistended. Positive bowel sounds. Normal active bowel sounds NEUROLOGICAL: Alert and oriented times three. Cranial nerves II through XII grossly intact. Sensation grosslyintact to light touch all 4 extremities 3+ patellar reflexes +/-Hoffmans (-) Clonus EXTREMITIES: 5\5 strength bilateral upper extremities. 3/5 right hip flexors, knee extensors, 3/5 ankle DF and 3+/5 EHL, 4/5 plantar flexion left hip flexors 3+/5, 4/5 knee extension/ankle DF/EHL and plantar flexion mild atrophy RLE when compared to LLE pedal pulses intact SKIN: hyperpigmented lower calves and feet ASSESSMENT:74-year-old M with past medical history of MS and Afib who presents status post sepsis secondary to UTI s/p cystoscopy with worsening weakness PLAN: 1. 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 Neuro: [facility], per patient his neurologist did not want to start him on steroids, given his clinical improvement since initiation of antibiotics, will not suggest steroids either -will attempt to clarify his MS treatment with [facility] neurologist prior to discharge and see if appropriate to start maintenance med while on ARU -patient reporting right sided mengioma that he has had for over 20 years and followed at the [facility]- he does not believe his left side is getting weaker and endorses it is his stronger side- physical exam supports this 3. cardio: pmh HTNwill switch to amlodipine and hold Cozaar for elevation in Racing Manager today to 1.37, medicine consulted to assist in management Afib- on coumadin, monitor INRs 4. resp: encourage incentive spirometry, f/u with PMD regarding incidental finding on CT chest 5. GI: patient with liver lesion, has f/u with Dr. Larsen 05-06-19 6. DVT ppx: on Warfarin 7. Endo: will hold metformin for elevated Racing Manager today and c/u ISS 8. : finish up course of Augmentin for E. coli UTI, monitor for hematuria- currently resolved 9. Heme: monitor Hgb in setting of intermittent hematuria 10. Dispo: tbd Allergies Coded Allergies: Ffzsfov-Npd-Ckm Reductase Inhibitor (Verified Adverse Reaction, Unknown, 04/13/19) gabapentin (Verified Adverse Reaction, Unknown, elevates MS symptoms, 04/13/19) glatiramer (copolymer 1) (Verified Adverse Reaction, Unknown, weakness, 04/13/19) modafinil (Verified Adverse Reaction, Unknown, elevate MS symptoms, 04/13/19) omeprazole (Verified Adverse Reaction, Unknown, elevated MS symptoms, 04/13/19) Vital Signs Vital Signs Date Time Temp Pulse Resp B/P (MAP) Pulse Ox O2 Delivery O2 Flow Rate FiO2 04/22/19 08:50 103/67 04/22/19 05:57 96.8 74 17 96 Laboratory Data CBC/BMP Laboratory Tests 04/22/19 06:41 Red Blood Count 3.98 L, Mean Corpuscular Volume 93.2, Mean Corpuscular Hemoglobin 31.9, Mean Corpuscular Hemoglobin Concent 34.2, Red Cell Distribution Width 13.0, Neutrophils (%) (Auto) 54.7, Lymphocytes (%) (Auto) 31.8, Monocytes (%) (Auto) 7.3 H, Eosinophils (%) (Auto) 4.2 H, Basophils (%) (Auto) 1.0, Neutrophils # (Auto) 3.7, Lymphocytes # (Auto) 2.1, Monocytes # (Auto) 0.5, Eosinophils # (Auto) 0.3, Basophils # (Auto) 0.1, Calcium Level 8.8, Aspartate Amino Transf (AST/SGOT) 66 H, Alanine Aminotransferase (ALT/SGPT) 119 H, Alkaline Phosphatase 207 H, Total Bilirubin 0.5, Total Protein 8.1, Albumin 2.5 L Labs 24H Laboratory Tests 2 04/22/19 06:41: Immature Granulocyte % (Auto) 1.0, White Blood Count 6.7, Red Blood Count 3.98L, Hemoglobin 12.7L, Hematocrit 37.1L, Mean Corpuscular Volume 93.2, Mean Corpuscular Hemoglobin 31.9, Mean Corpuscular Hemoglobin Concent 34.2, Red Cell Distribution Width 13.0, Platelet Count 325, Neutrophils (%) (Auto) 54.7, Lymphocytes (%) (Auto) 31.8, Monocytes (%) (Auto) 7.3H, Eosinophils (%) (Auto) 4.2H, Basophils (%) (Auto) 1.0, Neutrophils # (Auto) 3.7, Lymphocytes # (Auto) 2.1, Monocytes # (Auto) 0.5, Eosinophils # (Auto) 0.3, Basophils # (Auto) 0.1, Nucleated Red Blood Cells % (auto) 0.0, Prothrombin Time 25.9H, Prothromb Time International Ratio 2.39, Anion Gap 6L, Glomerular Filtration Rate 53.8, Blood Urea Nitrogen 30H, Creatinine 1.37H, Sodium Level 140, Potassium Level 4.2, Chloride Level 107, Carbon Dioxide Level 27, Calcium Level 8.8, Aspartate Amino Transf (AST/SGOT) 66H, Alanine Aminotransferase (ALT/SGPT) 119H, Alkaline Phosphatase 207H, Total Bilirubin 0.5, Total Protein 8.1, Albumin 2.5L, Albumin/Globulin Ratio 0.45L Current Medications Current Medications Current Medications Medications (Trade) Dose Ordered Sig/Avelino Route PRN Reason Start Time Stop Time Status Last Admin Dose Admin Acetaminophen (Tylenol Tab) 650 mg Q4HP PRN PO fever/pain 04/21/19 16:45 Albuterol/ Ipratropium (Duoneb (Ipr 0.5mg/Alb 2.5mg)) 3 ml Q4HP PRN NEB SOB/WHEEZING 04/21/19 16:45 Amlodipine Besylate (Norvasc) 5 mg DAILY PO 04/23/19 09:00 Amoxicillin/ Clavulanate Potassium (Augmentin) 500 mg BID PO 04/21/19 21:00 04/22/19 08:48 Ascorbic Acid (Vitamin C) 500 mg DAILY PO 04/22/19 09:00 04/22/19 08:48 Bisacodyl (Dulcolax Tab) 5 mg DAILYPRN PRN PO CONSTIPATION 04/21/19 16:45 04/21/19 21:41 Calcium Carbonate (Oscal) 500 mg DAILY PO 04/22/19 09:00 04/22/19 08:48 Dextrose (Dextrose 50%) 25 ml ASDIRECTED PRN IV SEE LABEL COMMENTS 04/21/19 16:45 Docusate Sodium (Colace) 200 mg BID PO 04/21/19 21:00 04/22/19 08:48 Glucagon (Glucagon) 1 mg ASDIRECTED PRN SC SEE LABEL COMMENTS 04/21/19 16:45 Glucose (Glucose) 16 GM ASDIRECTED PRN PO SEE LABEL COMMENTS 04/21/19 16:45 Insulin Human Lispro (HumaLOG INSULIN) SEE PROTOCOL TABLE AC SC 04/21/19 17:30 04/22/19 12:43 Insulin Human Lispro (HumaLOG INSULIN) SEE PROTOCOL TABLE QHS SC 04/21/19 21:00 Lactobacillus Acidophilus (Bacid) 1 ea TID PO 04/21/19 21:00 04/22/19 08:48 Losartan Potassium (Cozaar) 50 mg DAILY PO 04/22/19 09:00 04/22/19 10:43 DC Metformin HCl (Glucophage) 1,000 mg QHS PO 04/21/19 21:00 04/22/19 10:43 DC 04/21/19 21:41 Metoprolol Tartrate (Lopressor) 25 mg Q8H PO 04/22/19 10:45 04/22/19 10:46 DC Senna (Senokot) 1 tab QHS PO 04/21/19 21:00 04/21/19 21:43 Vitamin D (Vitamin D) 1,000 units DAILY PO 04/22/19 09:00 04/22/19 08:51 Warfarin Sodium (Coumadin) 7.5 mg DAILY@17 PO 04/21/19 17:00 04/21/19 17:19 KRISTINA CADENA MD Apr 22, 2019 16:05
[2019-04-22] MEDS: WARFARIN SOD 7.5 MG TAB PO SCH (18:05)
[2019-04-22 20:03] VITALS: BP 105/58
[2019-04-22] MEDS: SENNA 8.6 MG TAB (SENOKOT) PO SCH (20:35)
[2019-04-23 05:40] VITALS: BP 104/64
[2019-04-23 07:04] LABS: BASO # 0.1 10^3/uL (0.0-0.2); BASO % 1.1 % (0.0-1.0); EOS # 0.3 10^3/uL (0.0-0.5); EOS % 4.8 % (0.0-3.0); HEMATOCRIT 38.7 % (42.0-52.0); HEMOGLOBIN 12.9 g/dl (13.5-17.5); LYMPH # 2.3 10^3/uL (1.5-5.0); LYMPH % 36.2 % (24.0-44.0); MEAN CORPUSCULAR HEMOGLOBIN 31.4 pg (27.0-33.0); MEAN CORPUSCULAR HGB CONC 33.3 g/dl (32.0-36.5); MEAN CORPUSCULAR VOLUME 94.2 fl (80.0-96.0); MONO # 0.6 10^3/uL (0.0-0.8); MONO % 9.2 % (0.0-5.0); NEUTROPHILS # 2.9 10^3/uL (1.5-8.5); NEUTROPHILS % 47.4 % (36.0-66.0); PLATELET COUNT, AUTOMATED 354 10^3/uL (150-450); RED BLOOD COUNT 4.11 10^6/uL (4.30-6.10); WHITE BLOOD COUNT 6.2 10^3/uL (4.0-10.0)
[2019-04-23 07:19] LABS: INR 2.39; PROTHROMBIN TIME 25.9 SECONDS (11.8-14.0)
[2019-04-23 07:26] LABS: CALCIUM LEVEL 9.1 MG/DL (8.8-10.2); CREATININE FOR GFR 1.37 MG/DL (0.70-1.30); GLOMERULAR FILTRATION RATE 53.8 (>42); POTASSIUM SERUM 4.1 MEQ/L (3.5-5.1)
[2019-04-23] MEDS: amLODIPine 5 MG TAB PO SCH (08:42)
[2019-04-23] MEDS: VITAMIN D 1,000 INTERNATIONAL UNITS TABLET PO SCH (08:43)
[2019-04-23] MEDS: ASCORBIC ACID 500 MG TAB PO SCH (08:43)
[2019-04-23] MEDS: HumaLOG INSULIN (NovoLOG) PER UNIT SC SCH ×4 (08:43→21:40)
[2019-04-23] MEDS: OYSTER SHELL CALCIUM 500 MG TAB PO SCH (08:43)
[2019-04-23] MEDS: LACTOBACILLUS ACIDOPHILUS CAP (BACID) PO SCH ×3 (08:43→21:40)
[2019-04-23] MEDS: AUGMENTIN 500 MG TAB PO SCH ×2 (08:43→21:40)
[2019-04-23] MEDS: DOCUSATE SODIUM 100 MG CAP PO SCH ×2 (08:44→21:40)
[2019-04-23] MEDS: MIRALAX *UNIT DOSE* 17GM PACKET PO SCH (12:14)
--- NOTE | 2019-04-23 12:36 | IPNPDOC ---
PM&R Progress Note DATE OF SERVICE: Apr 23, 2019 Refractory Technician Progress Note Subjective: Patient seen in his room stating he feels well. HE reports it is difficult for him to advance his left leg in therapy and was instructed to work on strength ening his gluteus medius muscle especially on the right. REVIEW OF SYSTEMS: The following is a completed review of systems and has been reviewed. Review of systems otherwise unremarkable. PAIN: Patient self reports no pain EYES: No recent vision changes EARS, NOSE, & THROAT: No throat pain, or dysphagia, or rhinorrhea CARDIOVASCULAR: Denies chest pain or palpitations PULMONARY: Denies shortness of breath GASTROINTESTINAL: Denies constipation/diarrhea GENITOURINARY: +hematuria MUSCULOSKELETAL: weakness, R>L NEUROLOGICAL:+MS HEMATOLOGICAL:+hematuria SKIN: no rash PSYCHIATRIC: Unremarkable All other review of systems found to be negative. PHYSICAL EXAMINATION: VITAL SIGNS: Please see below. GENERAL: Pleasant and cooperative. No acute distress. HEENT: PERRL. Extraocular movements intact. Clear conjunctiva CARDIOVASCULAR: Regular rate and rhythm. No murmurs, rubs, or gallops LUNGS: Clear to auscultation bilaterally. No wheezes. No rhonchi ABDOMEN: Soft, nontender, nondistended. Positive bowel sounds. Normal active bowel sounds NEUROLOGICAL: Alert and oriented times three. Cranial nerves II through XII grossly intact. Sensation grosslyintact to light touch all 4 extremities 3+ patellar reflexes +/-Hoffmans (-) Clonus EXTREMITIES: 5\5 strength bilateral upper extremities. 3/5 right hip flexors, knee extensors, 3/5 ankle DF and 3+/5 EHL, 4/5 plantar flexion left hip flexors 3+/5, 4/5 knee extension/ankle DF/EHL and plantar flexion mild atrophy RLE when compared to LLE pedal pulses intact SKIN: hyperpigmented lower calves and feet ASSESSMENT:74-year-old M with past medical history of MS and Afib who presents status post sepsis secondary to UTI s/p cystoscopy with worsening weakness PLAN: 1. Rehab: PT- advance gait, strengthen bilat LE, work on endurance and balance training- monitor for skin breakdown while wearing new AFOs- isolate right gluteus medius muscle to help level out his pelvis for easier advancement of his left leg. 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 Neuro: MS, followed by the [facility], per patient his neurologist did not want to start him on steroids, given his clinical improvement since initiation of antibiotics, will not suggest steroids either -will attempt to clarify his MS treatment with [facility] neurologist prior to discharge and see if appropriate to start maintenance med while on ARU -patient reporting right sided meningioma that he has had for over 20 years and followed at the [facility]- he does not believe his left side is getting weaker and endorses it is his stronger side- physical exam supports this 3. 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 resp: encourage incentive spirometry, f/u with PMD regarding incidental finding on CT chest 5. GI: patient with liver lesion, has f/u with Dr. Larsen 05-06-19 6. DVT ppx: on Warfarin 7. Endo: will c/u to hold metformin and c/u ISS 8. : finish up course of Augmentin for E. coli UTI, monitor for hematuria- currently resolved 9. Heme: monitor Hgb in setting of intermittent hematuria-stable 10. 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 Dispo: tbd Allergies Coded Allergies: Xpuwyal-Ilf-Ylt Reductase Inhibitor (Verified Adverse Reaction, Unknown, 04/13/19) gabapentin (Verified Adverse Reaction, Unknown, elevates MS symptoms, 04/13/19) glatiramer (copolymer 1) (Verified Adverse Reaction, Unknown, weakness, 04/13/19) modafinil (Verified Adverse Reaction, Unknown, elevate MS symptoms, 04/13/19) omeprazole (Verified Adverse Reaction, Unknown, elevated MS symptoms, 04/13/19) Vital Signs Vital Signs Date Time Temp Pulse Resp B/P (MAP) Pulse Ox O2 Delivery O2 Flow Rate FiO2 04/23/19 08:42 80 104/64 04/23/19 05:40 98.3 18 99 Laboratory Data CBC/BMP Laboratory Tests 04/23/19 06:43 Red Blood Count 4.11 L, Mean Corpuscular Volume 94.2, Mean Corpuscular Hemoglobin 31.4, Mean Corpuscular Hemoglobin Concent 33.3, Red Cell Distribution Width 13.0, Neutrophils (%) (Auto) 47.4, Lymphocytes (%) (Auto) 36.2, Monocytes (%) (Auto) 9.2 H, Eosinophils (%) (Auto) 4.8 H, Basophils (%) (Auto) 1.1 H, Neutrophils # (Auto) 2.9, Lymphocytes # (Auto) 2.3, Monocytes # (Auto) 0.6, Eosinophils # (Auto) 0.3, Basophils # (Auto) 0.1, Calcium Level 9.1 Labs 24H Laboratory Tests 2 04/22/19 12:15: Bedside Glucose (Misc Panel) 129H 04/22/19 17:20: Bedside Glucose (Misc Panel) 109 04/22/19 19:55: Bedside Glucose (Misc Panel) 142H 04/23/19 05:09: Bedside Glucose (Misc Panel) 105 04/23/19 06:43: Immature Granulocyte % (Auto) 1.3, White Blood Count 6.2, Red Blood Count 4.11L, Hemoglobin 12.9L, Hematocrit 38.7L, Mean Corpuscular Volume 94.2, Mean Corpuscular Hemoglobin 31.4, Mean Corpuscular Hemoglobin Concent 33.3, Red Cell Distribution Width 13.0, Platelet Count 354, Neutrophils (%) (Auto) 47.4, Lymphocytes (%) (Auto) 36.2, Monocytes (%) (Auto) 9.2H, Eosinophils (%) (Auto) 4.8H, Basophils (%) (Auto) 1.1H, Neutrophils # (Auto) 2.9, Lymphocytes # (Auto) 2.3, Monocytes # (Auto) 0.6, Eosinophils # (Auto) 0.3, Basophils # (Auto) 0.1, Nucleated Red Blood Cells % (auto) 0.0, Prothrombin Time 25.9H, Prothromb Time International Ratio 2.39, Anion Gap 5L, Glomerular Filtration Rate 53.8, Blood Urea Nitrogen 32H, Creatinine 1.37H, Sodium Level 140, Potassium Level 4.1, Chloride Level 107, Carbon Dioxide Level 28, Calcium Level 9.1 Current Medications Current Medications Current Medications Medications (Trade) Dose Ordered Sig/Avelino Route PRN Reason Start Time Stop Time Status Last Admin Dose Admin Acetaminophen (Tylenol Tab) 650 mg Q4HP PRN PO fever/pain 04/21/19 16:45 Albuterol/ Ipratropium (Duoneb (Ipr 0.5mg/Alb 2.5mg)) 3 ml Q4HP PRN NEB SOB/WHEEZING 04/21/19 16:45 Amlodipine Besylate (Norvasc) 5 mg DAILY PO 04/23/19 09:00 Amoxicillin/ Clavulanate Potassium (Augmentin) 500 mg BID PO 04/21/19 21:00 04/23/19 08:43 Ascorbic Acid (Vitamin C) 500 mg DAILY PO 04/22/19 09:00 04/23/19 08:43 Bisacodyl (Dulcolax Tab) 5 mg DAILYPRN PRN PO CONSTIPATION 04/21/19 16:45 04/21/19 21:41 Calcium Carbonate (Oscal) 500 mg DAILY PO 04/22/19 09:00 04/23/19 08:43 Dextrose (Dextrose 50%) 25 ml ASDIRECTED PRN IV SEE LABEL COMMENTS 04/21/19 16:45 Docusate Sodium (Colace) 200 mg BID PO 04/21/19 21:00 04/23/19 08:44 Glucagon (Glucagon) 1 mg ASDIRECTED PRN SC SEE LABEL COMMENTS 04/21/19 16:45 Glucose (Glucose) 16 GM ASDIRECTED PRN PO SEE LABEL COMMENTS 04/21/19 16:45 Insulin Human Lispro (HumaLOG INSULIN) SEE PROTOCOL TABLE AC SC 04/21/19 17:30 04/23/19 08:43 Insulin Human Lispro (HumaLOG INSULIN) SEE PROTOCOL TABLE QHS SC 04/21/19 21:00 Lactobacillus Acidophilus (Bacid) 1 ea TID PO 04/21/19 21:00 04/23/19 08:43 Losartan Potassium (Cozaar) 50 mg DAILY PO 04/22/19 09:00 04/22/19 10:43 DC Metformin HCl (Glucophage) 1,000 mg QHS PO 04/21/19 21:00 04/22/19 10:43 DC 04/21/19 21:41 Metoprolol Tartrate (Lopressor) 25 mg Q8H PO 04/22/19 10:45 04/22/19 10:46 DC Polyethylene Glycol (Miralax) 1 pkt DAILY PO 04/23/19 11:00 Senna (Senokot) 1 tab QHS PO 04/21/19 21:00 04/22/19 20:35 Vitamin D (Vitamin D) 1,000 units DAILY PO 04/22/19 09:00 04/23/19 08:43 Warfarin Sodium (Coumadin) 7.5 mg DAILY@17 PO 04/21/19 17:00 04/22/19 18:05 KRISTINA CADENA MD Apr 23, 2019 12:36
[2019-04-23 14:00] VITALS: BP 110/61
[2019-04-23] MEDS: WARFARIN SOD 7.5 MG TAB PO SCH (17:19)
[2019-04-23 20:05] VITALS: BP 135/77
[2019-04-23] MEDS: SENNA 8.6 MG TAB (SENOKOT) PO SCH (21:00)
[2019-04-24 05:40] VITALS: BP 114/67
[2019-04-24 07:05] LABS: INR 2.63
[2019-04-24 07:19] LABS: ALBUMIN 2.5 GM/DL (3.2-5.2); BILIRUBIN,DIRECT 0.2 MG/DL (0.0-0.2); BILIRUBIN,TOTAL 0.4 MG/DL (0.2-1.0); TOTAL PROTEIN 8.3 GM/DL (6.4-8.2)
[2019-04-24] MEDS: MIRALAX *UNIT DOSE* 17GM PACKET PO SCH (07:36)
[2019-04-24] MEDS: HumaLOG INSULIN (NovoLOG) PER UNIT SC SCH ×4 (07:36→19:46)
[2019-04-24] MEDS: VITAMIN D 1,000 INTERNATIONAL UNITS TABLET PO SCH (07:37)
[2019-04-24] MEDS: AUGMENTIN 500 MG TAB PO SCH ×2 (07:37→20:34)
[2019-04-24] MEDS: OYSTER SHELL CALCIUM 500 MG TAB PO SCH (07:37)
[2019-04-24] MEDS: ASCORBIC ACID 500 MG TAB PO SCH (07:37)
[2019-04-24] MEDS: DOCUSATE SODIUM 100 MG CAP PO SCH ×2 (07:37→20:34)
[2019-04-24] MEDS: amLODIPine 5 MG TAB PO SCH (07:42)
[2019-04-24] MEDS: LACTOBACILLUS ACIDOPHILUS CAP (BACID) PO SCH ×3 (07:46→20:34)
[2019-04-24 14:30] VITALS: BP 140/83
[2019-04-24] MEDS: WARFARIN SOD 7.5 MG TAB PO SCH (16:18)
[2019-04-24 19:40] VITALS: BP 158/80
[2019-04-24] MEDS: SENNA 8.6 MG TAB (SENOKOT) PO SCH (20:34)
[2019-04-25 05:47] VITALS: BP 123/75
[2019-04-25] MEDS: HumaLOG INSULIN (NovoLOG) PER UNIT SC SCH ×4 (07:37→20:00)
[2019-04-25] MEDS: LACTOBACILLUS ACIDOPHILUS CAP (BACID) PO SCH ×3 (07:37→20:09)
[2019-04-25] MEDS: VITAMIN D 1,000 INTERNATIONAL UNITS TABLET PO SCH (07:38)
[2019-04-25] MEDS: amLODIPine 5 MG TAB PO SCH (07:38)
[2019-04-25] MEDS: ASCORBIC ACID 500 MG TAB PO SCH (07:38)
[2019-04-25] MEDS: DOCUSATE SODIUM 100 MG CAP PO SCH ×2 (07:38→20:09)
[2019-04-25] MEDS: OYSTER SHELL CALCIUM 500 MG TAB PO SCH (07:38)
[2019-04-25] MEDS: AUGMENTIN 500 MG TAB PO SCH ×2 (07:38→20:09)
[2019-04-25] MEDS: MIRALAX *UNIT DOSE* 17GM PACKET PO SCH (07:39)
[2019-04-25 07:51] LABS: INR 2.56; PROTHROMBIN TIME 27.4 SECONDS (11.8-14.0)
[2019-04-25 14:30] VITALS: BP 132/78
[2019-04-25] MEDS: WARFARIN SOD 7.5 MG TAB PO SCH (17:00)
[2019-04-25 20:00] VITALS: BP 128/79
[2019-04-25] MEDS: SENNA 8.6 MG TAB (SENOKOT) PO SCH (20:09)
[2019-04-26 06:06] VITALS: BP 130/77
[2019-04-26 06:43] LABS: INR 2.48; PROTHROMBIN TIME 26.6 SECONDS (11.8-14.0)
[2019-04-26] MEDS: ASCORBIC ACID 500 MG TAB PO SCH (08:18)
[2019-04-26] MEDS: HumaLOG INSULIN (NovoLOG) PER UNIT SC SCH ×4 (08:18→21:00)
[2019-04-26] MEDS: amLODIPine 5 MG TAB PO SCH (08:18)
[2019-04-26] MEDS: DOCUSATE SODIUM 100 MG CAP PO SCH ×2 (08:18→20:31)
[2019-04-26] MEDS: VITAMIN D 1,000 INTERNATIONAL UNITS TABLET PO SCH (08:18)
[2019-04-26] MEDS: LACTOBACILLUS ACIDOPHILUS CAP (BACID) PO SCH ×3 (08:18→20:31)
[2019-04-26] MEDS: AUGMENTIN 500 MG TAB PO SCH ×2 (08:18→20:31)
[2019-04-26] MEDS: OYSTER SHELL CALCIUM 500 MG TAB PO SCH (08:18)
[2019-04-26] MEDS: MIRALAX *UNIT DOSE* 17GM PACKET PO SCH (08:19)
[2019-04-26 14:00] VITALS: BP 133/83
--- NOTE | 2019-04-26 16:24 | IPNPDOC ---
PM&R Progress Note DATE OF SERVICE: Apr 26, 2019 Nanosystems Engineer Progress Note Subjective: Patient seen in therapy walking with recurvatum but denies having any pain with this gait pattern. he is wondering about what blood pressure meds to take now that he is off the Cozaar and his creatinine is better. REVIEW OF SYSTEMS: The following is a completed review of systems and has been reviewed. Review of systems otherwise unremarkable. PAIN: Patient self reports no pain EYES: No recent vision changes EARS, NOSE, & THROAT: No throat pain, or dysphagia, or rhinorrhea CARDIOVASCULAR: Denies chest pain or palpitations PULMONARY: Denies shortness of breath GASTROINTESTINAL: Denies constipation/diarrhea GENITOURINARY: +hematuria MUSCULOSKELETAL: weakness, R>L NEUROLOGICAL:+MS HEMATOLOGICAL:+hematuria SKIN: no rash PSYCHIATRIC: Unremarkable All other review of systems found to be negative. PHYSICAL EXAMINATION: VITAL SIGNS: Please see below. GENERAL: Pleasant and cooperative. No acute distress. HEENT: PERRL. Extraocular movements intact. Clear conjunctiva CARDIOVASCULAR: Regular rate and rhythm. No murmurs, rubs, or gallops LUNGS: Clear to auscultation bilaterally. No wheezes. No rhonchi ABDOMEN: Soft, nontender, nondistended. Positive bowel sounds. Normal active bowel sounds NEUROLOGICAL: Alert and oriented times three. Cranial nerves II through XII grossly intact. Sensation grosslyintact to light touch all 4 extremities 3+ patellar reflexes +/-Hoffmans (-) Clonus EXTREMITIES: 5\5 strength bilateral upper extremities. 3/5 right hip flexors, knee extensors, 3/5 ankle DF and 3+/5 EHL, 4/5 plantar flexion left hip flexors 3+/5, 4/5 knee extension/ankle DF/EHL and plantar flexion mild atrophy RLE when compared to LLE pedal pulses intact SKIN: hyperpigmented lower calves and feet ASSESSMENT:74-year-old M with past medical history of MS and Afib who presents status post sepsis secondary to UTI s/p cystoscopy with worsening weakness PLAN: 1. Rehab: PT- advance gait, strengthen bilat LE, work on endurance and balance training- monitor for skin breakdown while wearing new AFOs- isolate right gluteus medius muscle to help level out his pelvis for easier advancement of his left leg. 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 Neuro: MS, followed by the [facility], per patient his neurologist did not want to start him on steroids, given his clinical improvement since initiation of antibiotics, will not suggest steroids either -patient reporting right sided meningioma that he has had for over 20 years and followed at the [facility]- he does not believe his left side is getting weaker and endorses it is his stronger side- physical exam supports this 3. cardio: pmh HTN c/u amlodipine and hold Cozaar for elevation in Intrusion Analyst 1.37, will add metoprolol as well medicine consulted to assist in management Afib- on coumadin, monitor INRs 4. resp: encourage incentive spirometry, f/u with PMD regarding incidental finding on CT chest 5. GI: patient with liver lesion, has f/u with Dr. Larsen 05-06-19 6. DVT ppx: on Warfarin 7. Endo: will c/u to hold metformin and c/u ISS 8. : s/p course of Augmentin for E. coli UTI, monitor for hematuria- currently resolved 9. Heme: monitor Hgb in setting of intermittent hematuria-stable 10. 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 Dispo: tbd Allergies Coded Allergies: Jcaxruv-Fkl-Swv Reductase Inhibitor (Verified Adverse Reaction, Unknown, 04/13/19) gabapentin (Verified Adverse Reaction, Unknown, elevates MS symptoms, 04/13/19) glatiramer (copolymer 1) (Verified Adverse Reaction, Unknown, weakness, 04/13/19) modafinil (Verified Adverse Reaction, Unknown, elevate MS symptoms, 04/13/19) omeprazole (Verified Adverse Reaction, Unknown, elevated MS symptoms, 04/13/19) Vital Signs Vital Signs Date Time Temp Pulse Resp B/P (MAP) Pulse Ox O2 Delivery O2 Flow Rate FiO2 04/26/19 06:06 97.0 82 18 130/77 (94) 98 Laboratory Data Labs 24H Laboratory Tests 2 04/26/19 05:56: Prothrombin Time 26.6H, Prothromb Time International Ratio 2.48 Current Medications Current Medications Current Medications Medications (Trade) Dose Ordered Sig/Avelino Route PRN Reason Start Time Stop Time Status Last Admin Dose Admin Acetaminophen (Tylenol Tab) 650 mg Q4HP PRN PO fever/pain 04/21/19 16:45 Albuterol/ Ipratropium (Duoneb (Ipr 0.5mg/Alb 2.5mg)) 3 ml Q4HP PRN NEB SOB/WHEEZING 04/21/19 16:45 Amlodipine Besylate (Norvasc) 5 mg DAILY PO 04/23/19 09:00 04/26/19 08:18 Amoxicillin/ Clavulanate Potassium (Augmentin) 500 mg BID PO 04/21/19 21:00 04/26/19 08:18 Ascorbic Acid (Vitamin C) 500 mg DAILY PO 04/22/19 09:00 04/26/19 08:18 Bisacodyl (Dulcolax Tab) 5 mg DAILYPRN PRN PO CONSTIPATION 04/21/19 16:45 04/21/19 21:41 Calcium Carbonate (Oscal) 500 mg DAILY PO 04/22/19 09:00 04/26/19 08:18 Dextrose (Dextrose 50%) 25 ml ASDIRECTED PRN IV SEE LABEL COMMENTS 04/21/19 16:45 Docusate Sodium (Colace) 200 mg BID PO 04/21/19 21:00 04/26/19 08:18 Glucagon (Glucagon) 1 mg ASDIRECTED PRN SC SEE LABEL COMMENTS 04/21/19 16:45 Glucose (Glucose) 16 GM ASDIRECTED PRN PO SEE LABEL COMMENTS 04/21/19 16:45 Insulin Human Lispro (HumaLOG INSULIN) SEE PROTOCOL TABLE AC SC 04/21/19 17:30 04/26/19 13:05 Insulin Human Lispro (HumaLOG INSULIN) SEE PROTOCOL TABLE QHS SC 04/21/19 21:00 04/23/19 21:40 Lactobacillus Acidophilus (Bacid) 1 ea TID PO 04/21/19 21:00 04/26/19 08:18 Losartan Potassium (Cozaar) 50 mg DAILY PO 04/22/19 09:00 04/22/19 10:43 DC Metformin HCl (Glucophage) 1,000 mg QHS PO 04/21/19 21:00 04/22/19 10:43 DC 04/21/19 21:41 Metoprolol Tartrate (Lopressor) 25 mg Q8H PO 04/22/19 10:45 10/10/19 10:46 DC Polyethylene Glycol (Miralax) 1 pkt DAILY PO 04/23/19 11:00 04/26/19 08:19 Senna (Senokot) 1 tab QHS PO 04/21/19 21:00 04/25/19 20:09 Vitamin D (Vitamin D) 1,000 units DAILY PO 04/22/19 09:00 04/26/19 08:18 Warfarin Sodium (Coumadin) 7.5 mg DAILY@17 PO 04/21/19 17:00 04/25/19 17:00 KRISTINA CADENA MD Apr 26, 2019 16:24
[2019-04-26] MEDS: WARFARIN SOD 7.5 MG TAB PO SCH (16:28)
[2019-04-26 17:11] LABS: HEMATOCRIT 40.2 % (42.0-52.0); HEMOGLOBIN 13.4 g/dl (13.5-17.5); MEAN CORPUSCULAR HEMOGLOBIN 30.9 pg (27.0-33.0); MEAN CORPUSCULAR HGB CONC 33.3 g/dl (32.0-36.5); MEAN CORPUSCULAR VOLUME 92.6 fl (80.0-96.0); PLATELET COUNT, AUTOMATED 311 10^3/uL (150-450); RED BLOOD COUNT 4.34 10^6/uL (4.30-6.10); WHITE BLOOD COUNT 6.7 10^3/uL (4.0-10.0)
[2019-04-26 17:30] LABS: BLOOD UREA NITROGEN 21 MG/DL (7-18); CALCIUM LEVEL 9.4 MG/DL (8.8-10.2); CARBON DIOXIDE LEVEL 30 MEQ/L (21-32); CHLORIDE LEVEL 102 MEQ/L (98-107); CREATININE FOR GFR 1.18 MG/DL (0.70-1.30); GLOMERULAR FILTRATION RATE > 60.0 (>42); GLUCOSE, FASTING 108 MG/DL (70-100); POTASSIUM SERUM 3.9 MEQ/L (3.5-5.1); SODIUM LEVEL 135 MEQ/L (136-145)
[2019-04-26 20:00] VITALS: BP 153/61
[2019-04-26] MEDS: SENNA 8.6 MG TAB (SENOKOT) PO SCH (20:31)
[2019-04-27 05:30] VITALS: BP 156/83
[2019-04-27 07:21] LABS: INR 2.59; PROTHROMBIN TIME 27.6 SECONDS (11.8-14.0)
[2019-04-27] MEDS: AUGMENTIN 500 MG TAB PO SCH (08:05)
[2019-04-27] MEDS: VITAMIN D 1,000 INTERNATIONAL UNITS TABLET PO SCH (08:05)
[2019-04-27] MEDS: ASCORBIC ACID 500 MG TAB PO SCH (08:05)
[2019-04-27] MEDS: HumaLOG INSULIN (NovoLOG) PER UNIT SC SCH ×4 (08:06→20:35)
[2019-04-27] MEDS: LACTOBACILLUS ACIDOPHILUS CAP (BACID) PO SCH ×3 (08:06→20:34)
[2019-04-27] MEDS: DOCUSATE SODIUM 100 MG CAP PO SCH ×2 (08:06→20:34)
[2019-04-27] MEDS: MIRALAX *UNIT DOSE* 17GM PACKET PO SCH (08:06)
[2019-04-27] MEDS: OYSTER SHELL CALCIUM 500 MG TAB PO SCH (08:06)
[2019-04-27] MEDS: amLODIPine 5 MG TAB PO SCH (08:06)
[2019-04-27] MEDS: METOPROLOL TART 25 MG TABLET PO SCH ×2 (13:12→20:35)
[2019-04-27 14:00] VITALS: BP 140/88
[2019-04-27] MEDS: WARFARIN SOD 7.5 MG TAB PO SCH (16:45)
[2019-04-27 20:00] VITALS: BP 146/90
[2019-04-27] MEDS: SENNA 8.6 MG TAB (SENOKOT) PO SCH (20:35)
[2019-04-28 06:00] VITALS: BP_SYST 125; BP_SYST 146; BP_DIAS 66; BP_DIAS 71
[2019-04-28 06:59] LABS: INR 2.51; PROTHROMBIN TIME 26.9 SECONDS (11.8-14.0)
[2019-04-28 07:12] LABS: BLOOD UREA NITROGEN 26 MG/DL (7-18); CALCIUM LEVEL 8.8 MG/DL (8.8-10.2); CARBON DIOXIDE LEVEL 28 MEQ/L (21-32); CHLORIDE LEVEL 105 MEQ/L (98-107); CREATININE FOR GFR 1.17 MG/DL (0.70-1.30); GLOMERULAR FILTRATION RATE > 60.0 (>42); GLUCOSE, FASTING 122 MG/DL (70-100); SODIUM LEVEL 137 MEQ/L (136-145)
[2019-04-28] MEDS: OYSTER SHELL CALCIUM 500 MG TAB PO SCH (08:13)
[2019-04-28] MEDS: LACTOBACILLUS ACIDOPHILUS CAP (BACID) PO SCH ×3 (08:13→20:26)
[2019-04-28] MEDS: ASCORBIC ACID 500 MG TAB PO SCH (08:13)
[2019-04-28] MEDS: MIRALAX *UNIT DOSE* 17GM PACKET PO SCH (08:13)
[2019-04-28] MEDS: VITAMIN D 1,000 INTERNATIONAL UNITS TABLET PO SCH (08:13)
[2019-04-28] MEDS: DOCUSATE SODIUM 100 MG CAP PO SCH ×2 (08:14→20:26)
[2019-04-28] MEDS: METOPROLOL TART 25 MG TABLET PO SCH ×2 (08:15→20:27)
[2019-04-28] MEDS: HumaLOG INSULIN (NovoLOG) PER UNIT SC SCH ×4 (08:16→20:27)
[2019-04-28] MEDS ORDERED: amLODIPine 5 MG TAB PO SCH (09:00)
[2019-04-28 14:00] VITALS: BP 152/68
[2019-04-28] MEDS ORDERED: METO1TAB87 PO (14:02)
[2019-04-28] MEDS ORDERED: AMLO5TAB6 PO (14:02)
[2019-04-28] MEDS ORDERED: COUM7.5T PO (14:02)
--- NOTE | 2019-04-28 17:31 | IPNPDOC ---
PM&R Progress Note DATE OF SERVICE: Apr 27, 2019 Fish Inspector Progress Note Subjective: Patient seen in therapy stating he feels well. 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 REVIEW OF SYSTEMS: The following is a completed review of systems and has been reviewed. Review of systems otherwise unremarkable. PAIN: Patient self reports no pain EYES: No recent vision changes EARS, NOSE, & THROAT: No throat pain, or dysphagia, or rhinorrhea CARDIOVASCULAR: Denies chest pain or palpitations PULMONARY: Denies shortness of breath GASTROINTESTINAL: Denies constipation/diarrhea GENITOURINARY: +hematuria MUSCULOSKELETAL: weakness, R>L NEUROLOGICAL:+MS HEMATOLOGICAL:+hematuria (intermittent) SKIN: no rash PSYCHIATRIC: Unremarkable All other review of systems found to be negative. PHYSICAL EXAMINATION: VITAL SIGNS: Please see below. GENERAL: Pleasant and cooperative. No acute distress. HEENT: PERRL. Extraocular movements intact. Clear conjunctiva CARDIOVASCULAR: Regular rate and rhythm. No murmurs, rubs, or gallops LUNGS: Clear to auscultation bilaterally. No wheezes. No rhonchi ABDOMEN: Soft, nontender, nondistended. Positive bowel sounds. Normal active bowel sounds NEUROLOGICAL: Alert and oriented times three. Cranial nerves II through XII grossly intact. Sensation grosslyintact to light touch all 4 extremities 3+ patellar reflexes +/-Hoffmans (-) Clonus EXTREMITIES: 5\5 strength bilateral upper extremities. 3/5 right hip flexors, knee extensors, 3/5 ankle DF and 3+/5 EHL, 4/5 plantar flexion left hip flexors 3+/5, 4/5 knee extension/ankle DF/EHL and plantar flexion mild atrophy RLE when compared to LLE pedal pulses intact SKIN: hyperpigmented lower calves and feet ASSESSMENT:74-year-old M with past medical history of MS and Afib who presents status post sepsis secondary to UTI s/p cystoscopy with worsening weakness PLAN: 1. Rehab: PT- advance gait, strengthen bilat LE, work on endurance and balance training- monitor for skin breakdown while wearing new AFOs- isolate right gluteus medius muscle to help level out his pelvis for easier advancement of his left leg. 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 Neuro: MS, followed by the [facility], per patient his neurologist did not want to start him on steroids, given his clinical improvement since initiation of antibiotics, will not suggest steroids either -patient reporting right sided meningioma that he has had for over 20 years and followed at the [facility]- he does not believe his left side is getting weaker and endorses it is his stronger side- physical exam supports this 3. cardio: pmh HTN c/u amlodipine and hold Cozaar for elevation in Calciner Feeder 1.37, c/u metoprolol as well medicine consulted to assist in management Afib- on coumadin, monitor INRs 4. resp: encourage incentive spirometry, f/u with PMD regarding incidental finding on CT chest 5. GI: patient with liver lesion, has f/u with Dr. Larsen 05-06-19 6. DVT ppx: on Warfarin 7. Endo: will c/u to hold metformin and c/u ISS 8. : s/p course of Augmentin for E. coli UTI, monitor for hematuria- currently resolved 9. Heme: monitor Hgb in setting of intermittent hematuria-stable 10. 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 Dispo: 04-30-19 to home Allergies Coded Allergies: Vedikpo-Oqn-Mdb Reductase Inhibitor (Verified Adverse Reaction, Unknown, 04/13/19) gabapentin (Verified Adverse Reaction, Unknown, elevates MS symptoms, 04/13/19) glatiramer (copolymer 1) (Verified Adverse Reaction, Unknown, weakness, 04/13/19) modafinil (Verified Adverse Reaction, Unknown, elevate MS symptoms, 04/13/19) omeprazole (Verified Adverse Reaction, Unknown, elevated MS symptoms, 04/13/19) Vital Signs Vital Signs Date Time Temp Pulse Resp B/P (MAP) Pulse Ox O2 Delivery O2 Flow Rate FiO2 04/28/19 14:00 97.1 79 18 152/68 (96) 97 Laboratory Data CBC/BMP Laboratory Tests 04/28/19 06:30 Labs 24H Laboratory Tests 2 04/27/19 20:29: Bedside Glucose (Misc Panel) 124H 04/28/19 06:00: Bedside Glucose (Misc Panel) 111H 04/28/19 06:30: Prothrombin Time 26.9H, Prothromb Time International Ratio 2.51, Anion Gap 4L, Glomerular Filtration Rate > 60.0, Calcium Level 8.8 04/28/19 12:27: Bedside Glucose (Misc Panel) 103 Current Medications Current Medications Current Medications Medications (Trade) Dose Ordered Sig/Avelino Route PRN Reason Start Time Stop Time Status Last Admin Dose Admin Acetaminophen (Tylenol Tab) 650 mg Q4HP PRN PO fever/pain 04/21/19 16:45 Albuterol/ Ipratropium (Duoneb (Ipr 0.5mg/Alb 2.5mg)) 3 ml Q4HP PRN NEB SOB/WHEEZING 04/21/19 16:45 Amlodipine Besylate (Norvasc) 5 mg DAILY PO 04/23/19 09:00 04/27/19 11:44 DC 04/27/19 08:06 Amlodipine Besylate (Norvasc) 10 mg DAILY PO 04/28/19 09:00 04/28/19 16:20 DC 04/28/19 08:15 Amoxicillin/ Clavulanate Potassium (Augmentin) 500 mg BID PO 04/21/19 21:00 04/27/19 10:46 DC 04/27/19 08:05 Ascorbic Acid (Vitamin C) 500 mg DAILY PO 04/22/19 09:00 04/28/19 08:13 Bisacodyl (Dulcolax Tab) 5 mg DAILYPRN PRN PO CONSTIPATION 04/21/19 16:45 04/21/19 21:41 Calcium Carbonate (Oscal) 500 mg DAILY PO 04/22/19 09:00 04/28/19 08:13 Dextrose (Dextrose 50%) 25 ml ASDIRECTED PRN IV SEE LABEL COMMENTS 04/21/19 16:45 Docusate Sodium (Colace) 200 mg BID PO 04/21/19 21:00 04/28/19 08:14 Glucagon (Glucagon) 1 mg ASDIRECTED PRN SC SEE LABEL COMMENTS 04/21/19 16:45 Glucose (Glucose) 16 GM ASDIRECTED PRN PO SEE LABEL COMMENTS 04/21/19 16:45 Insulin Human Lispro (HumaLOG INSULIN) SEE PROTOCOL TABLE AC SC 04/21/19 17:30 04/28/19 12:44 Insulin Human Lispro (HumaLOG INSULIN) SEE PROTOCOL TABLE QHS SC 04/21/19 21:00 04/23/19 21:40 Lactobacillus Acidophilus (Bacid) 1 ea TID PO 04/21/19 21:00 04/28/19 08:13 Losartan Potassium (Cozaar) 50 mg DAILY PO 04/22/19 09:00 04/22/19 10:43 DC Metformin HCl (Glucophage) 1,000 mg QHS PO 04/21/19 21:00 04/22/19 10:43 DC 04/21/19 21:41 Metoprolol Tartrate (Lopressor) 25 mg BID PO 04/27/19 09:00 04/28/19 08:15 Metoprolol Tartrate (Lopressor) 25 mg Q8H PO 04/22/19 10:45 04/22/19 10:46 DC Polyethylene Glycol (Miralax) 1 pkt DAILY PO 04/23/19 11:00 04/28/19 08:13 Senna (Senokot) 1 tab QHS PO 04/21/19 21:00 04/27/19 20:35 Vitamin D (Vitamin D) 1,000 units DAILY PO 04/22/19 09:00 04/28/19 08:13 Warfarin Sodium (Coumadin) 7.5 mg DAILY@17 PO 04/21/19 17:00 04/27/19 16:45 KRISTINA CADENA MD Apr 28, 2019 17:31
--- NOTE | 2019-04-28 17:31 | IPNPDOC ---
PM&R Progress Note DATE OF SERVICE: Apr 28, 2019 Gin Clerk Progress Note Subjective: Patient seen in his room with his who is concerned his legs appear swollen. REVIEW OF SYSTEMS: The following is a completed review of systems and has been reviewed. Review of systems otherwise unremarkable. PAIN: Patient self reports no pain EYES: No recent vision changes EARS, NOSE, & THROAT: No throat pain, or dysphagia, or rhinorrhea CARDIOVASCULAR: Denies chest pain or palpitations PULMONARY: Denies shortness of breath GASTROINTESTINAL: Denies constipation/diarrhea GENITOURINARY: +hematuria MUSCULOSKELETAL: weakness, R>L NEUROLOGICAL:+MS HEMATOLOGICAL:+hematuria (intermittent) SKIN: no rash PSYCHIATRIC: Unremarkable All other review of systems found to be negative. PHYSICAL EXAMINATION: VITAL SIGNS: Please see below. GENERAL: Pleasant and cooperative. No acute distress. HEENT: PERRL. Extraocular movements intact. Clear conjunctiva CARDIOVASCULAR: Regular rate and rhythm. No murmurs, rubs, or gallops LUNGS: Clear to auscultation bilaterally. No wheezes. No rhonchi ABDOMEN: Soft, nontender, nondistended. Positive bowel sounds. Normal active bowel sounds NEUROLOGICAL: Alert and oriented times three. Cranial nerves II through XII grossly intact. Sensation grosslyintact to light touch all 4 extremities 3+ patellar reflexes +/-Hoffmans (-) Clonus EXTREMITIES: 5\5 strength bilateral upper extremities. 3/5 right hip flexors, kn ee extensors, 3/5 ankle DF and 3+/5 EHL, 4/5 plantar flexion left hip flexors 3+/5, 4/5 knee extension/ankle DF/EHL and plantar flexion mild atrophy RLE when compared to LLE pedal pulses intact +R>L mild edema around ankles and feet SKIN: hyperpigmented lower calves and feet ASSESSMENT:74-year-old M with past medical history of MS and Afib who presents status post sepsis secondary to UTI s/p cystoscopy with worsening weakness PLAN: 1. Rehab: PT- advance gait, strengthen bilat LE, work on endurance and balance training- monitor for skin breakdown while wearing new AFOs- isolate right glu teus medius muscle to help level out his pelvis for easier advancement of his left leg. 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 [facility]: [facility] per patient his neurologist did not want to start him on steroids, given his clinical improvement since initiation of antibiotics, will not suggest steroids either -patient reporting right sided meningioma that he has had for over 20 years and followed at the [facility]- he does not believe his left side is getting weaker and endorses it is his stronger side- physical exam supports this 3. 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 resp: encourage incentive spirometry, f/u with PMD regarding incidental finding on CT chest 5. GI: patient with liver lesion, has f/u with Dr. Larsen 05-06-19 6. DVT ppx: on Warfarin 7. Endo: will c/u to hold metformin and c/u ISS 8. : s/p course of Augmentin for E. coli UTI, monitor for hematuria- currently resolved 9. Heme: monitor Hgb in setting of intermittent hematuria-stable 10. Renal: JODI beam saw operator 1.37, stopped Cozaar 04-22-19, improving 10. Dispo: 04-30-19 to home Allergies Coded Allergies: Cutnznu-Duz-Snh Reductase Inhibitor (Verified Adverse Reaction, Unknown, 04/13/19) gabapentin (Verified Adverse Reaction, Unknown, elevates MS symptoms, 04/13/19) glatiramer (copolymer 1) (Verified Adverse Reaction, Unknown, weakness, 04/13/19) modafinil (Verified Adverse Reaction, Unknown, elevate MS symptoms, 04/13/19) omeprazole (Verified Adverse Reaction, Unknown, elevated MS symptoms, 04/13/19) Vital Signs Vital Signs Date Time Temp Pulse Resp B/P (MAP) Pulse Ox O2 Delivery O2 Flow Rate FiO2 04/28/19 14:00 97.1 79 18 152/68 (96) 97 Laboratory Data CBC/BMP Laboratory Tests 04/28/19 06:30 Labs 24H Laboratory Tests 2 04/27/19 20:29: Bedside Glucose (Misc Panel) 124H 04/28/19 06:00: Bedside Glucose (Misc Panel) 111H 04/28/19 06:30: Prothrombin Time 26.9H, Prothromb Time International Ratio 2.51, Anion Gap 4L, Glomerular Filtration Rate > 60.0, Calcium Level 8.8 04/28/19 12:27: Bedside Glucose (Misc Panel) 103 Current Medications Current Medications Current Medications Medications (Trade) Dose Ordered Sig/Avelino Route PRN Reason Start Time Stop Time Status Last Admin Dose Admin Acetaminophen (Tylenol Tab) 650 mg Q4HP PRN PO fever/pain 04/21/19 16:45 Albuterol/ Ipratropium (Duoneb (Ipr 0.5mg/Alb 2.5mg)) 3 ml Q4HP PRN NEB SOB/WHEEZING 04/21/19 16:45 Amlodipine Besylate (Norvasc) 5 mg DAILY PO 04/23/19 09:00 04/27/19 11:44 DC 04/27/19 08:06 Amlodipine Besylate (Norvasc) 10 mg DAILY PO 04/28/19 09:00 04/28/19 16:20 DC 04/28/19 08:15 Amoxicillin/ Clavulanate Potassium (Augmentin) 500 mg BID PO 04/21/19 21:00 04/27/19 10:46 DC 04/27/19 08:05 Ascorbic Acid (Vitamin C) 500 mg DAILY PO 04/22/19 09:00 04/28/19 08:13 Bisacodyl (Dulcolax Tab) 5 mg DAILYPRN PRN PO CONSTIPATION 04/21/19 16:45 04/21/19 21:41 Calcium Carbonate (Oscal) 500 mg DAILY PO 04/22/19 09:00 04/28/19 08:13 Dextrose (Dextrose 50%) 25 ml ASDIRECTED PRN IV SEE LABEL COMMENTS 04/21/19 16:45 Docusate Sodium (Colace) 200 mg BID PO 04/21/19 21:00 04/28/19 08:14 Glucagon (Glucagon) 1 mg ASDIRECTED PRN SC SEE LABEL COMMENTS 04/21/19 16:45 Glucose (Glucose) 16 GM ASDIRECTED PRN PO SEE LABEL COMMENTS 04/21/19 16:45 Insulin Human Lispro (HumaLOG INSULIN) SEE PROTOCOL TABLE AC SC 04/21/19 17:30 04/28/19 12:44 Insulin Human Lispro (HumaLOG INSULIN) SEE PROTOCOL TABLE QHS SC 04/21/19 21:00 04/23/19 21:40 Lactobacillus Acidophilus (Bacid) 1 ea TID PO 04/21/19 21:00 04/28/19 08:13 Losartan Potassium (Cozaar) 50 mg DAILY PO 04/22/19 09:00 04/22/19 10:43 DC Metformin HCl (Glucophage) 1,000 mg QHS PO 04/21/19 21:00 04/22/19 10:43 DC 04/21/19 21:41 Metoprolol Tartrate (Lopressor) 25 mg BID PO 04/27/19 09:00 04/28/19 08:15 Metoprolol Tartrate (Lopressor) 25 mg Q8H PO 04/22/19 10:45 04/22/19 10:46 DC Polyethylene Glycol (Miralax) 1 pkt DAILY PO 04/23/19 11:00 04/28/19 08:13 Senna (Senokot) 1 tab QHS PO 04/21/19 21:00 04/27/19 20:35 Vitamin D (Vitamin D) 1,000 units DAILY PO 04/22/19 09:00 04/28/19 08:13 Warfarin Sodium (Coumadin) 7.5 mg DAILY@17 PO 04/21/19 17:00 04/27/19 16:45 KRISTINA CADENA MD Apr 28, 2019 17:31
[2019-04-28] MEDS: WARFARIN SOD 7.5 MG TAB PO SCH (17:51)
[2019-04-28] MEDS: SENNA 8.6 MG TAB (SENOKOT) PO SCH (20:26)
[2019-04-29 06:05] VITALS: BP 131/72
[2019-04-29 07:23] LABS: INR 2.57; PROTHROMBIN TIME 27.4 SECONDS (11.8-14.0)
[2019-04-29] MEDS: MIRALAX *UNIT DOSE* 17GM PACKET PO SCH (08:11)
[2019-04-29] MEDS: ASCORBIC ACID 500 MG TAB PO SCH (08:11)
[2019-04-29] MEDS: OYSTER SHELL CALCIUM 500 MG TAB PO SCH (08:11)
[2019-04-29] MEDS: LACTOBACILLUS ACIDOPHILUS CAP (BACID) PO SCH ×3 (08:11→20:44)
[2019-04-29] MEDS: VITAMIN D 1,000 INTERNATIONAL UNITS TABLET PO SCH (08:11)
[2019-04-29] MEDS: METOPROLOL TART 25 MG TABLET PO SCH ×2 (08:12→20:44)
[2019-04-29] MEDS: DOCUSATE SODIUM 100 MG CAP PO SCH ×2 (08:12→20:44)
[2019-04-29] MEDS: HumaLOG INSULIN (NovoLOG) PER UNIT SC SCH ×4 (08:12→20:34)
[2019-04-29 14:00] VITALS: BP 138/74
[2019-04-29] MEDS: WARFARIN SOD 7.5 MG TAB PO SCH (17:21)
[2019-04-29 20:35] VITALS: BP 135/67
[2019-04-29] MEDS: SENNA 8.6 MG TAB (SENOKOT) PO SCH (20:44)
[2019-04-30 05:51] VITALS: BP 124/71
[2019-04-30 08:02] LABS: INR 2.61; PROTHROMBIN TIME 27.8 SECONDS (11.8-14.0)
[2019-04-30 09:00] VITALS: BP 124/71
[2019-04-30] MEDS: METOPROLOL TART 25 MG TABLET PO SCH (09:00)
[2019-04-30] MEDS: MIRALAX *UNIT DOSE* 17GM PACKET PO SCH (09:00)
[2019-04-30] MEDS: ASCORBIC ACID 500 MG TAB PO SCH (09:01)
[2019-04-30] MEDS: VITAMIN D 1,000 INTERNATIONAL UNITS TABLET PO SCH (09:02)
[2019-04-30] MEDS: OYSTER SHELL CALCIUM 500 MG TAB PO SCH (09:02)
[2019-04-30] MEDS: DOCUSATE SODIUM 100 MG CAP PO SCH (09:02)
[2019-04-30] MEDS: LACTOBACILLUS ACIDOPHILUS CAP (BACID) PO SCH (09:03)
[2019-04-30] MEDS: HumaLOG INSULIN (NovoLOG) PER UNIT SC SCH (09:03)
--- NOTE | 2019-05-17 11:25 | IPNPDOC ---
PM&R Progress Note DATE OF SERVICE: Apr 29, 2019 Associate Sales Manager Progress Note Subjective: Patient reporting he is ready to go home tomorrow. He will see the chief building inspector right after his discharge to adjust his new braces. REVIEW OF SYSTEMS: The following is a completed review of systems and has been reviewed. Review of systems otherwise unremarkable. PAIN: Patient self reports no pain EYES: No recent vision changes EARS, NOSE, & THROAT: No throat pain, or dysphagia, or rhinorrhea CARDIOVASCULAR: Denies chest pain or palpitations PULMONARY: Denies shortness of breath GASTROINTESTINAL: Denies constipation/diarrhea GENITOURINARY: +hematuria MUSCULOSKELETAL: weakness, R>L NEUROLOGICAL:+MS HEMATOLOGICAL:+hematuria (intermittent) SKIN: no rash PSYCHIATRIC: Unremarkable All other review of systems found to be negative. PHYSICAL EXAMINATION: VITAL SIGNS: Please see below. GENERAL: Pleasant and cooperative. No acute distress. HEENT: PERRL. Extraocular movements intact. Clear conjunctiva CARDIOVASCULAR: Regular rate and rhythm. No murmurs, rubs, or gallops LUNGS: Clear to auscultation bilaterally. No wheezes. No rhonchi ABDOMEN: Soft, nontender, nondistended. Positive bowel sounds. Normal active bowel sounds NEUROLOGICAL: Alert and oriented times three. Cranial nerves II through XII grossly intact. Sensation grosslyintact to light touch all 4 extremities 3+ patellar reflexes +/-Hoffmans (-) Clonus EXTREMITIES: 5\5 strength bilateral upper extremities. 3/5 right hip flexors, knee extensors, 3/5 ankle DF and 3+/5 EHL, 4/5 plantar flexion left hip flexors 3+/5, 4/5 knee extension/ankle DF/EHL and plantar flexion mild atrophy RLE when compared to LLE pedal pulses intact +R>L mild edema around ankles and feet SKIN: hyperpigmented lower calves and feet ASSESSMENT:74-year-old M with past medical history of MS and Afib who presents status post sepsis secondary to UTI s/p cystoscopy with worsening weakness PLAN: 1. Rehab: PT- advance gait, strengthen bilat LE, work on endurance and balance training- monitor for skin breakdown while wearing new AFOs- isolate right gluteus medius muscle to help level out his pelvis for easier advancement of his left leg. 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 Neuro: [facility], per patient his neurologist did not want to start him on steroids, given his clinical improvement since initiation of antibiotics, will not suggest steroids either -patient reporting right sided meningioma that he has had for over 20 years and followed at the [facility]- he does not believe his left side is getting weaker and endorses it is his stronger side- physical exam supports this 3. cardio: pmh HTN c/u to hold Cozaar for elevation in [employer] 1.37, c/u metoprolol as well medicine consulted to assist in management Afib- on coumadin, monitor INRs -will d/c Amlodipine for mild LE swelling 4. resp: encourage incentive spirometry, f/u with PMD regarding incidental finding on CT chest 5. GI: patient with liver lesion, has f/u with Dr. Larsen 05-06-19 6. DVT ppx: on Warfarin 7. Endo: will c/u to hold metformin and c/u ISS 8. : s/p course of Augmentin for E. coli UTI, monitor for hematuria- currently resolved 9. Heme: monitor Hgb in setting of intermittent hematuria-stable 10. 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 Dispo: 04-30-19 to home Allergies Coded Allergies: Vofbuyz-Ljl-Ely Reductase Inhibitor (Verified Adverse Reaction, Unknown, 04/13/19) gabapentin (Verified Adverse Reaction, Unknown, elevates MS symptoms, ) glatiramer (copolymer 1) (Verified Adverse Reaction, Unknown, weakness, 04/13/19) modafinil (Verified Adverse Reaction, Unknown, elevate MS symptoms, 04/13/19) omeprazole (Verified Adverse Reaction, Unknown, elevated MS symptoms, 04/13/19) Current Medications Current Medications Current Medications Medications (Trade) Dose Ordered Sig/Avelino Route PRN Reason Start Time Stop Time Status Last Admin Dose Admin Acetaminophen (Tylenol Tab) 650 mg Q4HP PRN PO fever/pain 04/21/19 16:45 04/30/19 11:14 DC Albuterol/ Ipratropium (Duoneb (Ipr 0.5mg/Alb 2.5mg)) 3 ml Q4HP PRN NEB SOB/WHEEZING 04/21/19 16:45 04/30/19 11:14 DC Amlodipine Besylate (Norvasc) 5 mg DAILY PO 04/23/19 09:00 04/27/19 11:44 DC 04/27/19 08:06 Amlodipine Besylate (Norvasc) 10 mg DAILY PO 04/28/19 09:00 04/28/19 16:20 DC 04/28/19 08:15 Amoxicillin/ Clavulanate Potassium (Augmentin) 500 mg BID PO 04/21/19 21:00 04/27/19 10:46 DC 04/27/19 08:05 Ascorbic Acid (Vitamin C) 500 mg DAILY PO 04/22/19 09:00 04/30/19 11:14 DC 04/30/19 09:01 Bisacodyl (Dulcolax Tab) 5 mg DAILYPRN PRN PO CONSTIPATION 04/21/19 16:45 04/30/19 11:14 DC 04/21/19 21:41 Calcium Carbonate (Oscal) 500 mg DAILY PO 04/22/19 09:00 04/30/19 11:14 DC 04/30/19 09:02 Dextrose (Dextrose 50%) 25 ml ASDIRECTED PRN IV SEE LABEL COMMENTS 04/21/19 16:45 04/30/19 11:14 DC Docusate Sodium (Colace) 200 mg BID PO 04/21/19 21:00 04/30/19 11:14 DC 04/30/19 09:02 Glucagon (Glucagon) 1 mg ASDIRECTED PRN SC SEE LABEL COMMENTS 04/21/19 16:45 04/30/19 11:14 DC Glucose (Glucose) 16 GM ASDIRECTED PRN PO SEE LABEL COMMENTS 04/21/19 16:45 04/30/19 11:14 DC Insulin Human Lispro (HumaLOG INSULIN) SEE PROTOCOL TABLE AC SC 04/21/19 17:30 04/30/19 11:14 DC 04/30/19 09:03 Insulin Human Lispro (HumaLOG INSULIN) SEE PROTOCOL TABLE QHS SC 04/21/19 21:00 04/30/19 11:14 DC 04/23/19 21:40 Lactobacillus Acidophilus (Bacid) 1 ea TID PO 04/21/19 21:00 04/30/19 11:14 DC 04/30/19 09:03 Losartan Potassium (Cozaar) 50 mg DAILY PO 04/22/19 09:00 04/22/19 10:43 DC Metformin HCl (Glucophage) 1,000 mg QHS PO 04/21/19 21:00 04/22/19 10:43 DC 04/21/19 21:41 Metoprolol Tartrate (Lopressor) 25 mg BID PO 04/27/19 09:00 04/30/19 11:14 DC 04/29/19 20:44 Metoprolol Tartrate (Lopressor) 25 mg Q8H PO 04/22/19 10:45 04/22/19 10:46 DC Polyethylene Glycol (Miralax) 1 pkt DAILY PO 04/23/19 11:00 04/30/19 11:14 DC 04/29/19 08:11 Senna (Senokot) 1 tab QHS PO 04/21/19 21:00 04/30/19 11:14 DC 04/29/19 20:44 Vitamin D (Vitamin D) 1,000 units DAILY PO 04/22/19 09:00 04/30/19 11:14 DC 04/30/19 09:02 Warfarin Sodium (Coumadin) 7.5 mg DAILY@17 PO 04/21/19 17:00 04/30/19 11:14 DC 04/29/19 17:21 KRISTINA CADENA MD May 17, 2019 11:25
--- NOTE | 2019-05-17 13:11 | PMRDS ---
DATE OF ADMISSION: 04/21/2019 DATE OF DISCHARGE: 04/30/2019 CHIEF COMPLAINT/DISCHARGE DIAGNOSIS: Multiple sclerosis (MS) with worsening weakness after urinary tract infection (UTI). HISTORY OF PRESENT ILLNESS: 74-year-old male with a past medical history MS, hypertension, obstructive sleep apnea (ROCHELLE), diabetes, atrial fibrillation on Coumadin, benign prostatic hyperplasia (BPH), status post transurethral resection of prostate (TURP) who presented to the [facility] Emergency Department (ED) with hematuria and worsening lower extremity weakness with difficulty walking. The patient was found to have leukocytosis with white blood cell count of 21.8 and urinalysis (UA) suspicious for urinary tract infection. He was started on ceftriaxone. His urine culture grew E-coli and later transitioned to Augmentin. There was concern that his weakness is due to possible pneumonia for which CT chest showed "noncalcified pleural based nodule on the right lower lobe measuring 6 mm... fusiform dilatation of the ascending thoracic aorta which measures 3.7 cm maximally." His leukocytosis and hematuria improved. He underwent a cystoscopy on 04/20/2019 without complication and evaluated by therapy where he was found to be below his prior level of function and deemed medically appropriate for discharge to ARU on 04/21/2019. PAST MEDICAL HISTORY: As per history of present illness. HOSPITAL COURSE: The patient was admitted and enrolled in a comprehensive physical therapy (PT), occupational therapy (OT), speech language pathology program. He received 24-hour nursing supervision and weekly team meetings were held to discuss his progress. The patient was given a new pair of AFOs which he trialed with therapy putting his knees into rocker-bottom. He was able to walk functionally and safely however. His Cozaar was discontinued upon admission due to an increase in his creatinine and his creatinine improved. He was initially started on amlodipine and was on metoprolol for elevated blood pressures and amlodipine was discontinued due to lower extremity swelling thought to be a side effect. The patient finished up a course of Augmentin for urinary tract infection and overall did very well in therapy making significant gains and deemed medically and functionally stable to return home. DISCHARGE MEDICATIONS: As per instructions. FUNCTIONAL HISTORY UPON DISCHARGE: The patient was modified independent for all functional transfers, able to ambulate 150 feet and in occupational therapy he was modified independent for upper and lower body dressing and given room privileges. Thank you for this referral.
== END 2019-04-30 10:30 | disposition home health service (06) | DRG 59 ==
LOC: M PM&R 13:20
PROVIDERS: ADMIT Physical Medicine & Rehabilitation; ATTEND Physical Medicine & Rehabilitation
DX: G35 Multiple sclerosis (principal); N17.9 Acute kidney failure, unspecified; I10 Essential (primary) hypertension; G47.33 Obstructive sleep apnea (adult) (pediatric); D32.0 Benign neoplasm of cerebral meninges; I27.20 Pulmonary hypertension, unspecified; I48.91 Unspecified atrial fibrillation; R22.40 Localized swelling, mass and lump, unspecified lower limb; T46.905A Adverse effect of unspecified agents primarily affecting the cardiovascular system, initial encounter; R53.1 Weakness; R26.2 Difficulty in walking, not elsewhere classified; N40.0 Benign prostatic hyperplasia without lower urinary tract symptoms; E11.9 Type 2 diabetes mellitus without complications; Z79.01 Long term (current) use of anticoagulants; Z79.84 Long term (current) use of oral hypoglycemic drugs; Z79.899 Other long term (current) drug therapy; Z88.8 Allergy status to other drugs, medicaments and biological substances

== ENCOUNTER → 2019-06-01 | Outpatient (REF) | payer MEDICARE ==
[~2019-06-01] MED LIST changes: +AMLO5TAB6 PO; +AMMO12LO TOP; +AMOX500T2 PO; +METO1TAB87 PO
[2019-06-01 13:48] LABS: BASO # 0.1 10^3/uL (0.0-0.2); EOS # 0.2 10^3/uL (0.0-0.5); EOS % 2.5 % (0.0-3.0); HEMATOCRIT 42.6 % (42.0-52.0); HEMOGLOBIN 13.9 g/dl (13.5-17.5); LYMPH # 2.2 10^3/uL (1.5-5.0); LYMPH % 36.4 % (24.0-44.0); MEAN CORPUSCULAR HEMOGLOBIN 31.2 pg (27.0-33.0); MEAN CORPUSCULAR HGB CONC 32.6 g/dl (32.0-36.5); MEAN CORPUSCULAR VOLUME 95.5 fl (80.0-96.0); MONO # 0.3 10^3/uL (0.0-0.8); MONO % 5.3 % (0.0-5.0); NEUTROPHILS # 3.3 10^3/uL (1.5-8.5); NEUTROPHILS % 54.3 % (36.0-66.0); PLATELET COUNT, AUTOMATED 304 10^3/uL (150-450); RED BLOOD COUNT 4.46 10^6/uL (4.30-6.10); WHITE BLOOD COUNT 6.1 10^3/uL (4.0-10.0)
[2019-06-01 13:57] LABS: ALBUMIN 3.5 GM/DL (3.2-5.2); BILIRUBIN,DIRECT 0.2 MG/DL (0.0-0.2); BILIRUBIN,TOTAL 0.5 MG/DL (0.2-1.0); CREATININE FOR GFR 1.29 MG/DL (0.70-1.30); GLOMERULAR FILTRATION RATE 57.6 (>42)
[2019-06-01 14:02] LABS: INR 1.05; PARTIAL THROMBOPLASTIN TIME 32.1 SECONDS (25.0-38.4); PROTHROMBIN TIME 13.5 SECONDS (11.8-14.0)
== END ==
LOC: M LABDRAWP 08:05
PROVIDERS: ATTEND Internal Medicine Gastroenterology
DX: R93.3 Abnormal findings on diagnostic imaging of other parts of digestive tract (principal); K76.89 Other specified diseases of liver

== ENCOUNTER 2019-06-03 11:59 | Inpatient (IN) | payer MEDICARE ==
[~2019-06-03] VITALS: Ht 175.3 cm; Wt 78.4 kg
[~2019-06-03 11:59] MED LIST changes: -AMMO12LO TOP
[2019-06-03 14:14] VITALS: BP 133/72
[2019-06-03] MEDS ORDERED: GLUCOSE 4 GM CHEW TABLET PO PRN (14:30)
[2019-06-03] MEDS ORDERED: DEXTROSE 50% 50 ML SYRINGE IV PRN (14:30)
[2019-06-03] MEDS ORDERED: GLUCAGON FOR INJ 1 MG VIAL (J1610) SC PRN (14:30)
--- NOTE | 2019-06-03 14:43 | HPEPDOC ---
[facility] Medical History & Physical Date of Admission Jun 03, 2019 Date of Service: Jun 03, 2019 Attending Physician: Maged Trujillo M.D. History and Physical CHIEF COMPLAINT: Admitted for EGD colonoscopy tomorrow HISTORY OF PRESENT ILLNESS: 74-year-old male with past medical history of multiple sclerosis, hypertension, diabetes mellitus, DVT (on Coumadin), who was recently found to have a liver lesion, status post liver biopsy 2 days ago, now being admitted for EGD and colonoscopy. Patient is currently without any complaints, reports abnormal LFTs found about 1 month ago followed by imaging, which showed liver mass, scheduled for liver biopsy and EGD/colonoscopy at that time. He has been holding his Coumadin for the past 7 days, last INR was 1.02. Prior to that liver biopsy 2 days ago. Patient denies any short of breath, chest pain, nausea, vomiting, no pain or diarrhea at this time. Patient is scheduled for EGD/colonoscopy by Dr. Moya tomorrow. 10 point review of system is negative except for above PAST MEDICAL HISTORY: 1. Multiple sclerosis. 2. DVT. 3. Diabetes mellitus. 4. Hypertension. 5. Liver lesion PAST SURGICAL HISTORY: 1. TURP. SOCIAL HISTORY: Ex-smoker, smoked 1 pack per day for 20 years, quit 20 years ago. Denies alcohol. Denies drug use FAMILY HISTORY: Sister with Parkinson's disease Brother with COPD ALLERGIES: Please see below. HOME MEDICATIONS: Please see below. PHYSICAL EXAMINATION: VITAL SIGNS: Please see below. GENERAL: No distress HEENT: Normocephalic, atraumatic, moist mucous membranes NECK: Supple CARDIOVASCULAR EXAMINATION: S1, S2, no murmurs RESPIRATORY EXAMINATION: Clear to auscultation, no wheezing ABDOMINAL EXAMINATION: Soft, nontender, nondistended, positive bowel sounds EXTREMITIES: Range of motion intact SKIN: No rash NEUROLOGICAL EXAMINATION: Alert and oriented 3, no focal deficits PSYCHIATRIC EXAMINATION: Calm and cooperative LABORATORY DATA: See below. MICROBIOLOGY: Please see below. ASSESSMENT: 74-year-old male with past medical history of multiple sclerosis DVT (on Coumadin), hypertension, diabetes mellitus and recently found liver lesion is being admitted for EGD/colonoscopy tomorrow. PLAN: 1. EGD/colonoscopy. Scheduled for tomorrow, patient unsure why, unable to find reason listed in the chart. Patient was sent in by Dr. Chandrala her for the procedure Bowel prep ordered, nothing by mouth after midnight, hold heparin tomorrow morning. Patient has been holding his Coumadin since May 27, continue hold. He is a patient Dr. Carrero's, case discussed with Dr. Maged Trujillo who will take over for the patient's care. 2. Multiple sclerosis. Not on maintenance medications, stable. 3. DVT. On Coumadin, being held for EGD/colonoscopy tomorrow and liver biopsy he had 2 days ago. 4. Diabetes mellitus. Sliding scale insulin with fingersticks every 6 hours. DVT prophylaxis: Heparin subcutaneous GI prophylaxis: Not needed Vital Signs Vital Signs Date Time Temp Pulse Resp B/P (MAP) Pulse Ox O2 Delivery O2 Flow Rate FiO2 06/03/19 14:14 97.3 59 14 133/72 (92) 99 Home Medications Scheduled Alpha Lipoic Acid (Alpha Lipoic Acid) 200 Mg Tab, 200 MG PO BID Ascorbic Acid (Vitamin C) 500 Mg Cap, 500 MG PO DAILY Calcium Carbonate (Calcium) 500 Mg Tablet, 500 MG PO DAILY Cholecalciferol (Vitamin D3) (Vitamin D3) 1,000 Unit Capsule, 1,000 UNIT PO DAILY Metformin HCl (Metformin ER Osmotic) 1,000 Mg Tab, 1,000 MG PO QPM Metoprolol Tartrate (Metoprolol Tartrate) 25 Mg Tablet, 25 MG PO BID Warfarin Sodium (Coumadin) 7.5 Mg Tab, 7.5 MG PO QPM Allergies Coded Allergies: Lezakbx-Boe-Krx Reductase Inhibitor (Verified Adverse Reaction, Unknown, 04/13/19) gabapentin (Verified Adverse Reaction, Unknown, elevates MS symptoms, 04/13/19) glatiramer (copolymer 1) (Verified Adverse Reaction, Unknown, weakness, 04/13/19) modafinil (Verified Adverse Reaction, Unknown, elevate MS symptoms, 04/13/19) omeprazole (Verified Adverse Reaction, Unknown, elevated MS symptoms, 04/13/19) A-FIB/CHADSVASC A-FIB History Current/History of A-Fib/PAF?: No CHRIS QUINTANILLA MD Jun 03, 2019 14:43
[2019-06-03] MEDS ORDERED: METO1TAB87 PO (14:48)
[2019-06-03] MEDS ORDERED: AMMO12LO TOP (14:51)
[2019-06-03] MEDS: D5W/0.9% SODIUM CHLORIDE 1,000 ML IV SCH (15:45)
[2019-06-03] MEDS ORDERED: GOLYTELY SOLN 4000 ML BTL PO ONE (16:00)
[2019-06-03] MEDS: HumaLOG INSULIN (NovoLOG) PER UNIT SC SCH (17:36)
[2019-06-03] MEDS ORDERED: BISACODYL 5 MG TAB PO ONE (17:45)
[2019-06-03 20:00] VITALS: BP 152/88
[2019-06-03] MEDS: HEPARIN SOD (PORCINE) 5000 UNITS/ML VIAL SC SCH (21:28)
[2019-06-04 05:58] VITALS: BP 136/77
[2019-06-04 06:04] LABS: HEMATOCRIT 39.6 % (42.0-52.0); HEMOGLOBIN 13.1 g/dl (13.5-17.5); MEAN CORPUSCULAR HEMOGLOBIN 30.8 pg (27.0-33.0); MEAN CORPUSCULAR HGB CONC 33.1 g/dl (32.0-36.5); MEAN CORPUSCULAR VOLUME 93.2 fl (80.0-96.0); PLATELET COUNT, AUTOMATED 253 10^3/uL (150-450); RED BLOOD COUNT 4.25 10^6/uL (4.30-6.10); WHITE BLOOD COUNT 6.9 10^3/uL (4.0-10.0)
[2019-06-04] MEDS: D5W/0.9% SODIUM CHLORIDE 1,000 ML IV SCH ×2 (06:15→20:45)
[2019-06-04] MEDS: HumaLOG INSULIN (NovoLOG) PER UNIT SC SCH ×4 (06:16→18:00)
[2019-06-04 06:44] LABS: ALBUMIN 2.9 GM/DL (3.2-5.2); ALT/SGPT 63 U/L (12-78); BILIRUBIN,TOTAL 0.7 MG/DL (0.2-1.0); BLOOD UREA NITROGEN 19 MG/DL (7-18); CALCIUM LEVEL 8.5 MG/DL (8.8-10.2); CARBON DIOXIDE LEVEL 29 MEQ/L (21-32); CHLORIDE LEVEL 107 MEQ/L (98-107); CREATININE FOR GFR 1.16 MG/DL (0.70-1.30); GLOMERULAR FILTRATION RATE > 60.0 (>42); GLUCOSE, FASTING 122 MG/DL (70-100); MAGNESIUM LEVEL 1.5 MG/DL (1.8-2.4); POTASSIUM SERUM 3.9 MEQ/L (3.5-5.1); SODIUM LEVEL 142 MEQ/L (136-145); TOTAL PROTEIN 7.6 GM/DL (6.4-8.2)
--- NOTE | 2019-06-04 08:47 | IPN ---
DATE: 06/04/2019 Manoj was seen on 5 grayson. I have been in communication with Dr. Larsen frequently concerning him. So, I did ask to see him today. He is in for esophagogastroduodenoscopy (EGD) and colonoscopy. His anticoagulation is on hold for this. He recently underwent a biopsy of a liver lesion. Results of that are pending. 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 PHYSICAL EXAM: He is alert, conversant, in no distress. Vital Signs: Stable. Lungs: Clear. Heart: Regular rate and rhythm. Abdomen: Soft, nontender. No peripheral edema. LABS: CBC unremarkable. Hemoglobin 13.1. Electrolytes unremarkable. Creatinine 1.1. IMPRESSION: 1. History of arterial thrombosis. His warfarin is on hold. He is going to have EGD and colonoscopy today. I would restart Lovenox after the procedure when cleared by GI. Also start warfarin and discontinue the Lovenox once his international normalized ratio (INR) is therapeutic. 2. Diabetes. Sliding scale insulin with coverage. 3. Multiple sclerosis. Stable/disabled. 4. Hypertension. Continue his metoprolol 25 mg twice a day. Restart this after his procedure. 5. Liver lesion. Biopsy is pending.
[2019-06-04] MEDS: HEPARIN SOD (PORCINE) 5000 UNITS/ML VIAL SC SCH ×2 (09:00→20:44)
[2019-06-04 14:00] VITALS: BP 130/80
[2019-06-04] MEDS ORDERED: PROPOFOL 200 MG/20 ML VIAL As Ordered ONE (15:21)
[2019-06-04] MEDS ORDERED: LIDOCAINE 2% INJ 100 MG/5 ML SDV (FOR ANES.) As Ordered ONE (15:21)
[2019-06-04] MEDS ORDERED: ePHEDrine SULFATE 25 MG/5 ML(5MG/ML) SYRINGE As Ordered ONE (15:36)
--- NOTE | 2019-06-04 15:50 | ROOR ---
Patient Name: aMnoj Smith Procedure Date: 06/04/2019 2:45 PM Date of : 1945 Age: 74 Room: [facility] Gender: Male Note Status: Finalized Procedure: Upper GI endoscopy Indications: Abnormal CT of the GI tract Providers: Daniel Larsen MD Referring MD: Clayton Carrero MD Requesting Provider: Medicines: Monitored Anesthesia Care Complications: No immediate complications. Procedure: Pre-Anesthesia Assessment: - Prior to the procedure, a History and Physical was performed, and patient medications and allergies were reviewed. The patient is competent. The risks and benefits of the procedure and the sedation options and risks were discussed with the patient. All questions were answered and informed consent was obtained. Patient identification and proposed procedure were verified by the physician, the nurse and the anesthesiologist in the procedure room. Mental Status Examination: alert and oriented. Airway Examination: normal oropharyngeal airway and neck mobility. Respiratory Examination: clear to auscultation. CV Examination: normal. Prophylactic Antibiotics: The patient does not require prophylactic antibiotics. Prior Anticoagulants: The patient has taken Coumadin (warfarin), last dose was 7 days prior to procedure. ASA Grade Assessment: III - A patient with severe systemic disease. After reviewing the risks and benefits, the patient was deemed in satisfactory condition to undergo the procedure. The anesthesia plan was to use monitored anesthesia care (MAC). Immediately prior to administration of medications, the patient was re-assessed for adequacy to receive sedatives. The heart rate, respiratory rate, oxygen saturations, blood pressure, adequacy of pulmonary ventilation, and response to care were monitored throughout the procedure. The physical status of the patient was re-assessed after the procedure. The upper GI endoscopy was accomplished without difficulty. The patient tolerated the procedure well. The Endoscope was introduced through the mouth, and advanced to the second part of duodenum. Findings: The Z-line was regular and was found 41 cm from the incisors. Scattered moderate inflammation characterized by congestion (edema), erythema, friability and granularity was found in the gastric fundus, in the gastric body and in the gastric antrum. Biopsies were taken with a cold forceps for Helicobacter pylori testing. Verification of patient identification for the specimen was done by the physician and nurse using the patient's name, date and medical record number. Estimated blood loss was minimal. The duodenal bulb, second portion of the duodenum and major papilla were normal. Impression: - Z-line regular, 41 cm from the incisors. - Gastritis. Biopsied. - Normal duodenal bulb, second portion of the duodenum and major papilla. Recommendation: - Patient has a contact number available for emergencies. The signs and symptoms of potential delayed complications were discussed with the patient. Return to normal activities tomorrow. Written discharge instructions were provided to the patient. - High fiber diet. - Continue present medications. - Await pathology results. - Resume Coumadin (warfarin) at prior dose today. Refer to primary physician for further adjustment of therapy. - Return to GI clinic 1 - 2 weeks. Please call GI clinic @ [phone] for apppointment date and time. - Return to primary care physician. Daniel Larsen MD Daniel Larsen MD 06/04/2019 3:49:24 PM Electronically signed by Daniel Larsen MD Number of Addenda: 0 Note Initiated On: 06/04/2019 2:17 PM Estimated Blood Loss: Estimated blood loss was minimal.
--- NOTE | 2019-06-04 15:54 | ROOR ---
Patient Name: Manoj Smith Procedure Date: 06/04/2019 2:45 PM Date of : 1945 Age: 74 Room: [facility] Gender: Male Note Status: Finalized Procedure: Colonoscopy Indications: Abnormal CT of the GI tract Providers: Daniel Larsen MD Referring MD: Clayton Carrero MD Requesting Provider: Medicines: Monitored Anesthesia Care Complications: No immediate complications. Procedure: Pre-Anesthesia Assessment: - Prior to the procedure, a History and Physical was performed, and patient medications and allergies were reviewed. The patient is competent. The risks and benefits of the procedure and the sedation options and risks were discussed with the patient. All questions were answered and informed consent was obtained. Patient identification and proposed procedure were verified by the physician, the nurse and the anesthesiologist in the procedure room. Mental Status Examination: alert and oriented. Airway Examination: normal oropharyngeal airway and neck mobility. Respiratory Examination: clear to auscultation. CV Examination: normal. Prophylactic Antibiotics: The patient does not require prophylactic antibiotics. Prior Anticoagulants: The patient has taken no previous anticoagulant or antiplatelet agents. ASA Grade Assessment: III - A patient with severe systemic disease. After reviewing the risks and benefits, the patient was deemed in satisfactory condition to undergo the procedure. The anesthesia plan was to use monitored anesthesia care (MAC). Immediately prior to administration of medications, the patient was re-assessed for adequacy to receive sedatives. The heart rate, respiratory rate, oxygen saturations, blood pressure, adequacy of pulmonary ventilation, and response to care were monitored throughout the procedure. The physical status of the patient was re-assessed after the procedure. The colonoscopy was performed without difficulty. The patient tolerated the procedure well. The quality of the bowel preparation was fair. The terminal ileum, ileocecal valve, appendiceal orifice, and rectum were photographed. Scope insertion time was 3 minutes. Scope withdrawal time was 10 minutes. The total duration of the procedure was 14 minutes. The Colonoscope was introduced through the anus and advanced to the terminal ileum, with identification of the appendiceal orifice and IC valve. Findings: The perianal and digital rectal examinations were normal. The terminal ileum appeared normal. The colon (entire examined portion) was moderately redundant. Two sessile polyps were found in the recto-sigmoid colon and ascending colon. The polyps were 8 to 10 mm in size. These polyps were removed with a cold biopsy forceps. Resection and retrieval were complete. For hemostasis, one hemostatic clip was successfully placed. There was no bleeding at the end of the procedure. Copious quantities of semi-liquid semi-solid stool was found from sigmoid to ascending colon, making visualization difficult. Lavage of the area was performed using a large amount of sterile water, resulting in clearance with fair visualization. Multiple small and large-mouthed diverticula were found in the sigmoid colon. There was no evidence of diverticular bleeding. Non-bleeding external and internal hemorrhoids were found during retroflexion. The hemorrhoids were medium-sized. Impression: - Preparation of the colon was fair. - The examined portion of the ileum was normal. - Redundant colon. - Two 8 to 10 mm polyps at the recto-sigmoid colon and in the ascending colon, removed with a cold biopsy forceps. Resected and retrieved. Clip was placed. - Stool from sigmoid to ascending colon. - Moderate diverticulosis in the sigmoid colon. There was no evidence of diverticular bleeding. - Non-bleeding external and internal hemorrhoids. Recommendation: - Patient has a contact number available for emergencies. The signs and symptoms of potential delayed complications were discussed with the patient. Return to normal activities tomorrow. Written discharge instructions were provided to the patient. - High fiber diet. - Continue present medications. - Await pathology results. - Resume Coumadin (warfarin) at prior dose today. Refer to primary physician for further adjustment of therapy. - Repeat colonoscopy in 3 - 5 years depending on clinical and functional status. - Return to GI clinic 1 - 2 weeks. Please call GI clinic @ [phone] for apppointment date and time. - Return to primary care physician. Daniel Larsen MD Daniel Larsen MD 06/04/2019 3:54:22 PM Electronically signed by Daniel Larsen MD Number of Addenda: 0 Note Initiated On: 06/04/2019 2:40 PM Estimated Blood Loss: Estimated blood loss was minimal.
[2019-06-04] MEDS ORDERED: NS 1,000 ML IV ONE (16:00)
[2019-06-04] MEDS ORDERED: WARFARIN SOD 7.5 MG TAB PO SCH (17:00)
[2019-06-04 17:11] LABS: INR 1.15; PROTHROMBIN TIME 14.4 SECONDS (11.8-14.0)
[2019-06-04 20:40] VITALS: BP 154/81
[2019-06-04] MEDS: METOPROLOL TART 25 MG TABLET PO SCH (20:44)
[2019-06-04] MEDS: ENOXAPARIN 80 MG/0.8 ML SYRINGE (J1650) SC SCH (22:47)
[2019-06-05] MEDS: HumaLOG INSULIN (NovoLOG) PER UNIT SC SCH ×3 (00:25→11:58)
[2019-06-05] MEDS: ENOXAPARIN 80 MG/0.8 ML SYRINGE (J1650) SC SCH (04:25)
[2019-06-05 06:00] VITALS: BP 149/82
[2019-06-05 07:20] LABS: HEMOGLOBIN 12.4 g/dl (13.5-17.5); MEAN CORPUSCULAR HEMOGLOBIN 30.5 pg (27.0-33.0); MEAN CORPUSCULAR HGB CONC 31.8 g/dl (32.0-36.5); MEAN CORPUSCULAR VOLUME 96.1 fl (80.0-96.0); PLATELET COUNT, AUTOMATED 240 10^3/uL (150-450); RED BLOOD COUNT 4.06 10^6/uL (4.30-6.10); WHITE BLOOD COUNT 7.5 10^3/uL (4.0-10.0)
[2019-06-05 07:40] LABS: INR 1.28; PROTHROMBIN TIME 15.7 SECONDS (11.8-14.0)
[2019-06-05 07:48] LABS: BLOOD UREA NITROGEN 15 MG/DL (7-18); CALCIUM LEVEL 8.3 MG/DL (8.8-10.2); CARBON DIOXIDE LEVEL 27 MEQ/L (21-32); CHLORIDE LEVEL 111 MEQ/L (98-107); CREATININE FOR GFR 1.18 MG/DL (0.70-1.30); GLOMERULAR FILTRATION RATE > 60.0 (>42); GLUCOSE, FASTING 98 MG/DL (70-100); POTASSIUM SERUM 3.9 MEQ/L (3.5-5.1); SODIUM LEVEL 143 MEQ/L (136-145)
[2019-06-05 08:47] VITALS: BP 149/82
[2019-06-05] MEDS: HEPARIN SOD (PORCINE) 5000 UNITS/ML VIAL SC SCH (08:47)
[2019-06-05] MEDS: METOPROLOL TART 25 MG TABLET PO SCH (08:47)
[2019-06-05] MEDS ORDERED: LOVE0.6I2 SC (13:46)
--- NOTE | 2019-06-05 13:48 | DS.PDOC ---
Discharge Summary General Date of Admission Jun 03, 2019 at 13:11 Date of Discharge 06/05/19 Primary Care Physician: Clayton Carrero MD Attending Physician: Yves Arriaza MD Specialist/Consultants Involve: BHARATH NEWMAN MD Discharge Summary ADMITTING DIAGNOSES: 1. Bridge therapy with heparin before EGD and colonoscopy tomorrow. 2. Multiple sclerosis. 3. History of DVT (this is inaccurate). 4. Type 2 diabetes. DISCHARGE DIAGNOSES: 1. New liver lesion, pathology is pending. 2. Status post EGD and colonoscopy during this admission to evaluate for possible sources of the liver lesion. 3. History of arterial thrombus, typically anticoagulated with warfarin. 4. Type 2 diabetes. 5. Multiple sclerosis. 6. Hypertension. PROCEDURES PERFORMED DURING STAY: 1. Esophagogastroduodenoscopy, status post biopsies, pathology pending 2. Colonoscopy, status post biopsies, pathology pending. ADMISSION HISTORY: Mr. Smith was admitted for heparin bridge therapy prior to EGD and colonoscopy. He has a history of lower extremity arterial thrombus in 2008 and has been anticoagulated with warfarin since then. He has had to be off of his anticoagulation in preparation for the liver biopsy and now possible biopsies from the EGD and colonoscopy. Please see the admission history and physical for the remaining details. HOSPITAL COURSE: Hermilo was admitted prior to EGD and colonoscopy. These are planned in order to fully evaluate possible etiologies for a newly discovered liver lesion which was biopsied just 2 days prior. He tolerated procedure with no difficulty. He was restarted on his warfarin the evening of the procedures. His INR is subtherapeutic, but he was able to be discharged home on treatment doses of subcutaneous Lovenox while his INR rises back into the therapeutic range. We confirmed that he is able to get the Lovenox before discharge. DISCHARGE CONDITION: Stable. FOLLOW-UP: He will need to come into the office on Friday (06/07/19) for an INR check to see whether he can come off the heparin or not yet. DIET: Consistent carbohydrate. ACTIVITY: As tolerated. DISCHARGE MEDICATIONS: Please see below. ALLERGIES: Please see below. LABORATORY DATA: Please see below. IMAGING: None. DISCHARGE INSTRUCTIONS: 1. Contact the office on Friday to find out when is the best time to come in for an INR check. 2. Continue to take the Lovenox until you informed that her INR is in the ther apeutic range again. 3. Follow-up with Dr. Newman per his office's instructions. ITEMS TO FOLLOW-UP OUTPATIENT: 1. Liver biopsy. 2. Upper GI biopsies. 3. Lower GI biopsies. TIME SPENT ON DISCHARGE: Greater than 25 minutes. Vital Signs/I&Os Vital Signs Date Time Temp Pulse Resp B/P (MAP) Pulse Ox O2 Delivery O2 Flow Rate FiO2 06/05/19 08:47 92 149/82 06/05/19 06:00 99.8 18 100 Room Air I&O- Last 24 Hours up to 6 AM 06/05/19 06:00 Intake Total 1380 ml Balance 1380 ml Laboratory Data Labs 24H Laboratory Tests 2 06/04/19 16:45: Prothrombin Time 14.4H, Prothromb Time International Ratio 1.15 06/04/19 16:54: Bedside Glucose (Misc Panel) 95 06/04/19 23:26: Bedside Glucose (Misc Panel) 144H 06/05/19 07:04: Prothrombin Time 15.7H, Prothromb Time International Ratio 1.28, Nucleated Red Blood Cells % (auto) 0.0, Anion Gap 5L, Glomerular Filtration Rate > 60.0, Calcium Level 8.3L 06/05/19 11:25: Bedside Glucose (Misc Panel) 97 CBC/BMP Laboratory Tests 06/05/19 07:04 FSBS Laboratory Tests Test 06/04/19 16:54 06/04/19 23:26 06/05/19 11:25 Range/Units Bedside Glucose (Misc Panel) 95 144 97 83-110 MG/DL Discharge Medications Scheduled Alpha Lipoic Acid (Alpha Lipoic Acid) 200 Mg Tab, 200 MG PO BID, (Reported) Ascorbic Acid (Vitamin C) 500 Mg Cap, 500 MG PO DAILY, (Reported) Calcium Carbonate (Calcium) 500 Mg Tablet, 500 MG PO DAILY, (Reported) Cholecalciferol (Vitamin D3) (Vitamin D3) 1,000 Unit Capsule, 2,000 UNIT PO DAILY, (Reported) Enoxaparin Sodium (Lovenox) 80 Mg/0.8 Ml Syringe, 80 MG SC Q12H Metformin HCl (Metformin ER Osmotic) 1,000 Mg Tab, 1,000 MG PO QPM, (Reported) Metoprolol Tartrate (Metoprolol Tartrate) 25 Mg Tablet, 25 MG PO BID, (Reported) Warfarin Sodium (Coumadin) 7.5 Mg Tab, 7.5 MG PO QPM, (Reported) HELD SINCE 05/27/19 Scheduled PRN Ammonium Lactate (Ammonium Lactate) 12% Lotion, 1 DOSE TOP DAILY PRN for DRY SKIN, (Reported) APPLIES TO AREAS OF DRY SKIN Allergies Coded Allergies: Oznmult-Pqg-Ipp Reductase Inhibitor (Verified Adverse Reaction, Unknown, "PASSES OUT", 06/03/19) gabapentin (Verified Adverse Reaction, Unknown, elevates MS symptoms, 04/13/19) glatiramer (copolymer 1) (Verified Adverse Reaction, Unknown, weakness, 04/13/19) modafinil (Verified Adverse Reaction, Unknown, elevate MS symptoms, 04/13/19) omeprazole (Verified Adverse Reaction, Unknown, elevated MS symptoms, 04/13/19) Yves Arriaza MD Jun 05, 2019 1:48 pm
[2019-06-05] MEDS ORDERED: HumaLOG INSULIN (NovoLOG) PER UNIT SC SCH (21:00)
== END 2019-06-05 15:05 | disposition home or self-care (01) | DRG 443 ==
LOC: M MS5PR 13:11
PROVIDERS: ADMIT Family Medicine; ATTEND Family Medicine
PROC: 0FB13ZX Excision of Right Lobe Liver, Percutaneous Approach, Diagnostic (ICD-10-PCS; principal; 2019-06-02)
PROC: 0DB78ZX Excision of Stomach, Pylorus, Via Natural or Artificial Opening Endoscopic, Diagnostic (ICD-10-PCS; 2019-06-04)
PROC: 0DBN8ZX Excision of Sigmoid Colon, Via Natural or Artificial Opening Endoscopic, Diagnostic (ICD-10-PCS; 2019-06-04)
PROC: 0DBK8ZX Excision of Ascending Colon, Via Natural or Artificial Opening Endoscopic, Diagnostic (ICD-10-PCS; 2019-06-04)
DX: K76.89 Other specified diseases of liver (principal); R93.3 Abnormal findings on diagnostic imaging of other parts of digestive tract; G35 Multiple sclerosis; E11.9 Type 2 diabetes mellitus without complications; I10 Essential (primary) hypertension; Z87.891 Personal history of nicotine dependence; Z86.718 Personal history of other venous thrombosis and embolism; Z79.01 Long term (current) use of anticoagulants; Z79.84 Long term (current) use of oral hypoglycemic drugs; Z88.8 Allergy status to other drugs, medicaments and biological substances; K29.70 Gastritis, unspecified, without bleeding; D12.2 Benign neoplasm of ascending colon; D12.5 Benign neoplasm of sigmoid colon; K57.30 Diverticulosis of large intestine without perforation or abscess without bleeding; K64.8 Other hemorrhoids; K64.4 Residual hemorrhoidal skin tags

== ENCOUNTER 2019-06-08 07:11 | Inpatient (IN) | payer MEDICARE ==
[~2019-06-08] VITALS: Ht 175.3 cm; Wt 85.0 kg
[~2019-06-08 07:11] MED LIST changes: +AMMO12LO TOP; +LOVE0.6I2 SC
[2019-06-08] MEDS ORDERED: ENOX80IN3 SC (07:55)
[2019-06-08] MEDS ORDERED: BACL1TAB8 PO (07:55)
[2019-06-08] MEDS ORDERED: MORPHINE 2 MG/ML 1ML VIAL (J2270) IV ONE (08:30)
[2019-06-08] MEDS ORDERED: ONDANSETRON 4MG/2ML VIAL (J2405) IV ONE (08:30)
[2019-06-08] MEDS ORDERED: ISOVUE-370 76% 100ML VIAL (Q9967) As Ordered ONE (08:33)
[2019-06-08 08:44] LABS: BASO % 0.3 % (0.0-1.0); EOS # 0.1 10^3/uL (0.0-0.5); EOS % 0.7 % (0.0-3.0); HEMATOCRIT 31.2 % (42.0-52.0); HEMOGLOBIN 10.1 g/dl (13.5-17.5); LYMPH # 2.4 10^3/uL (1.5-5.0); LYMPH % 24.3 % (24.0-44.0); MEAN CORPUSCULAR HEMOGLOBIN 31.7 pg (27.0-33.0); MEAN CORPUSCULAR HGB CONC 32.4 g/dl (32.0-36.5); MEAN CORPUSCULAR VOLUME 97.8 fl (80.0-96.0); MONO # 0.7 10^3/uL (0.0-0.8); MONO % 7.2 % (0.0-5.0); NEUTROPHILS # 6.6 10^3/uL (1.5-8.5); NEUTROPHILS % 67.2 % (36.0-66.0); PLATELET COUNT, AUTOMATED 266 10^3/uL (150-450); RED BLOOD COUNT 3.19 10^6/uL (4.30-6.10); WHITE BLOOD COUNT 9.8 10^3/uL (4.0-10.0)
--- NOTE | 2019-06-08 08:52 | REP ---
Clinical: The pain and swelling . Technique: Lema scale and color Doppler evaluation of the bilateral lower extremities using linear high frequency transducer. Findings: Ultrasound examination of the right and left lower extremity deep venous structures from the common femoral vein to the popliteal vein demonstrates normal compressibility flow and wave patterns in response to respiration and augmentation. There is no evidence for deep venous thrombosis. Impression: No evidence for deep venous thrombosis. Electronically Signed by Modesto Hanna MD 06/08/2019 08:43 A
[2019-06-08 08:55] LABS: INR 1.62
[2019-06-08 08:57] LABS: PARTIAL THROMBOPLASTIN TIME 53.1 SECONDS (25.0-38.4)
[2019-06-08 09:05] LABS: ERYTHROCYTE SEDIMENTATION RATE 73 mm/hr (0-20)
[2019-06-08 09:09] LABS: ALBUMIN 3.1 GM/DL (3.2-5.2); BILIRUBIN,DIRECT 0.1 MG/DL (0.0-0.2); BILIRUBIN,TOTAL 0.3 MG/DL (0.2-1.0); C REACTIVE PROTEIN QUANTITATIV 1.37 MG/DL (0.00-0.30)
--- NOTE | 2019-06-08 09:23 | REP ---
Clinical: Chest pain. Comparison: 04/15/2019. Findings: Mediastinum and cardiac silhouette are stable. Lung chahal demonstrate chronic changes primarily involving the left base. No focal consolidation. No effusion. No pneumothorax. Skeletal structures intact. Impression: Chronic stable changes. Subtle left basilar atelectasis cannot be excluded. No acute consolidation or effusion identified. Electronically Signed by Modesto Hanna MD 06/08/2019 09:14 A
[2019-06-08 09:30] LABS: CK-MB VALUE MASS < 1.0 NG/ML (<3.6); CPK CREATINE PHOSPHOKINASE 32 U/L (39-308); MB/CK RELATIVE INDEX 3.12 (< OR =4); TROPONIN I < 0.02 NG/ML (< 0.10)
--- NOTE | 2019-06-08 09:42 | REP ---
Clinical: Right lower extremity pain and swelling. Technique: Axial contrast enhanced images from the lung bases to the pubic symphysis using arterial angiographic technique with multiplanar re-formations including coronal and sagittal MIP re-formations and volume rendered angiogram images. 100 ml Isovue 370 intravenous contrast material administered without complication. Findings: Moderate generalized atherosclerotic changes noted involving the visualized aorta and branch vessels extending into the bilateral lower extremities. 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 Right lower extremity demonstrates atherosclerotic disease retains intraluminal contrast and flow including suspected three-vessel runoff to the mid calf level followed by posterior tibial artery flow to the level of the ankle. There is a complex mixed fluid intramuscular fluid collection along the lateral aspect of the left femur likely representing hematoma beginning just below the level of the femoral trochanter and extending to the level of the may measuring roughly 8.0 x 4.4 cm maximal diameter. Overlying subcutaneous inflammatory stranding is also appreciated (images 157 - 285). Liver, spleen, pancreas, gallbladder, bilateral adrenal glands and kidneys are relatively normal. The enteric system is without obstruction or acute inflammatory process. Colonic diverticulosis noted without acute diverticulitis. There is a large left inguinal hernia containing fat and nonobstructed loops of descending/sigmoid colon. Pelvis demonstrates normal bladder and age appropriate prostate/seminal vesicles. No ascites. No free air. No adenopathy. Osseous structures demonstrate age-related degenerative changes without focal osseous pathology. Lung bases demonstrate chronic fibrosis and interstitial disease. Impression: 1. 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 Right lower extremity atherosclerotic disease with single vessel runoff suggested from the mid calf to the ankle. 2. Large complex intramuscular fluid collection along the lateral aspect of the right thigh as detailed above most likely representing hematoma. 3. Large left inguinal hernia containing fat and nonobstructed colon. 4. Further nonacute findings as described above. Electronically Signed by Modesto Hanna MD 06/08/2019 09:33 A
[2019-06-08] MEDS ORDERED: PIPERACILLIN/TAZOBACTAM SOD 4.5 GM in D5W MINI-BAG PLUS 50 ML IV ONE (09:45)
[2019-06-08] MEDS: MORPHINE 2 MG/ML 1ML VIAL (J2270) IV PRN ×4 (10:05→14:32)
[2019-06-08] MEDS ORDERED: NS 1,000 ML IV ONE (11:45)
[2019-06-08] MEDS ORDERED: PROTAMINE SULF INJ 50 MG/5 ML VIAL (J2720) IV STA (13:55)
[2019-06-08] MEDS ORDERED: PHYTONADIONE 5 MG TAB PO ONE (14:00)
[2019-06-08] MEDS ORDERED: GLUCAGON FOR INJ 1 MG VIAL (J1610) SC PRN (14:15)
[2019-06-08] MEDS ORDERED: DEXTROSE 50% 50 ML SYRINGE IV PRN (14:15)
[2019-06-08] MEDS ORDERED: GLUCOSE 4 GM CHEW TABLET PO PRN (14:15)
--- NOTE | 2019-06-08 14:18 | ER ---
DATE OF CONSULTATION: 06/08/2019 CHIEF COMPLAINT: Right thigh pain. The patient states that over the last day he has had increasing right thigh pain and swelling to the point that he is having difficulty with ambulation. He denies any associated numbness, tingling, fevers, chills. This is a 74-year-old male who has had a complicated past medical history with multiple sclerosis, hypertension, diabetes, previous arterial blood clot and on long-term Coumadin, who was found to have a new liver lesion and during the workup of this lesion was taken off of Coumadin and bridged with Lovenox so he could undergo an esophagogastroduodenoscopy (EGD) and colonoscopy, which was done from 06/03/2019 to 06/05/2019 when he was recently discharged. The patient denies any trauma. No fevers, chills, nausea or vomiting. He states that he has sharp pain that is about a 6 to 7 out of 10. He denies any fevers, chills, nausea or vomiting. REVIEW OF SYSTEMS: Complete 10-system review was noted, pertinent positives and negatives in the history of present illness and other systems negative. PAST MEDICAL HISTORY: 1. Multiple sclerosis. 2. Arterial thrombus in 2008. 3. Diabetes. 4. Hypertension. 5. Liver lesion. PAST SURGICAL HISTORY: 1. Transurethral resection of prostate (TURP). 2. Colonoscopy. 3. EGD. SOCIAL HISTORY: He is an ex smoker, one pack a day for 20 years, quit 20 years ago. Denies any alcohol or drug use. FAMILY HISTORY: Sister with Parkinson's. Brother with chronic obstructive pulmonary disease (COPD). ALLERGIES: STATINS, GABAPENTIN, GLATIRAMER , MODAFINIL, OMEPRAZOLE. HOME MEDICATIONS: - vitamin C - alpha lipoic acid - calcium carbonate - vitamin D3 - metformin - metoprolol - warfarin, currently being bridged with Lovenox PHYSICAL EXAMINATION: The patient is awake, alert, oriented, breathing well on room air. Normocephalic, atraumatic. Right lower extremity is tender to palpation at the lateral thigh, able to range the hip and knee with minimal pain. Positive extensor hallucis longus (EHL), flexor hallucis longus (FHL), tibialis, gastroc motor function. Compartments are full but compressible with mild discomfort. Posterior tibial pulse 2+ and regular rate. Sensation is intact to light touch in superficial, peroneal, deep peroneal, sural, saphenous, and tibial distributions. Left lower extremity with no tenderness to palpation. Active range of motion at the hip, knee and ankle. Positive EHL, FHL, tibialis, and gastroc motor function. Sensation is intact to light touch in superficial, peroneal, deep peroneal, sural, saphenous, and tibial distributions. IMAGING: CT angio of the right lower extremity shows a large intramuscular hematoma. DIAGNOSIS 1. Right intramuscular hematoma. I discussed with the patient and his family that I do not believe that this is compartment syndrome. It is likely that he has a deep intramuscular hematoma. This likely was a spontaneous bleed or from light trauma due to his conversion from Coumadin to Lovenox. I believe that he may be in an hypercoagulable state. At this point, there is no urgent orthopedic surgical interventions. I do not recommend drainage of the hematoma, the body will absorb this over time. He can weight bear as tolerated, range of motion as tolerated, use ice and Gulshan bandage for compression, over the counter pain medications for pain control. If the patient has continued issues and would like to followup as an outpatient, they can do so. If they would like a second opinion then I would recommend general surgery for evaluation of the soft tissues.
--- NOTE | 2019-06-08 14:38 | HPEPDOC ---
[facility] Medical History & Physical Date of Admission Jun 08, 2019 Date of Service: Jun 08, 2019 History and Physical CHIEF COMPLAINT: Right leg pain HISTORY OF PRESENT ILLNESS: 74-year-old male with past medical history of m ultiple sclerosis, hypertension, diabetes mellitus, arterial thrombus (on Coumadin), recently diagnosed with liver cancer, presents with right thigh pain and swelling. Patient was admitted a few days ago for EGD/colonoscopy to find source of possible liver cancer. Patient's Coumadin was held for 9 days prior to the procedure, he was discharged 3 days ago on Lovenox for bridging purposes. He has been taking 80 mg of Lovenox twice a day, last dose was earlier today. He started noticing right thigh pain 2 days ago, went to PCP yesterday, presented to the emergency department today due to worsening pain and swelling. His INR was 1.6 in the ED, last dose of Coumadin was last night. In the ED is found to have a large intramuscular hematoma in the right thigh. There is suspicion for progression of hematoma to compartment syndrome as patient is likely still bleeding. Patient is otherwise comfortable, denies shortness of breath, chest pain, nausea, vomiting, abdominal pain or diarrhea. 10 point review of system is negative except for above PAST MEDICAL HISTORY: 1. Multiple sclerosis. 2. Arterial thrombosis 3. Diabetes mellitus. 4. Hypertension. 5. Liver cancer PAST SURGICAL HISTORY: 1. TURP. SOCIAL HISTORY: Ex-smoker, smoked 1 pack per day for 20 years, quit 20 years ago. Denies alcohol. Denies drug use FAMILY HISTORY: Sister with Parkinson's disease Brother with COPD ALLERGIES: Please see below. HOME MEDICATIONS: Please see below. PHYSICAL EXAMINATION: VITAL SIGNS: Please see below. GENERAL: No distress HEENT: Normocephalic, atraumatic, moist mucous membranes NECK: Supple CARDIOVASCULAR EXAMINATION: S1, S2, no murmurs RESPIRATORY EXAMINATION: Clear to auscultation, no wheezing ABDOMINAL EXAMINATION: Soft, nontender, nondistended, positive bowel sounds EXTREMITIES: Right lateral thigh with swelling and tenderness to palpation SKIN: No rash NEUROLOGICAL EXAMINATION: Alert and oriented 3, no focal deficits PSYCHIATRIC EXAMINATION: Calm and cooperative LABORATORY DATA: See below. MICROBIOLOGY: Please see below. ASSESSMENT: 74-year-old male with past medical history of multiple sclerosis, arterial thrombosis, hypertension, diabetes mellitus and liver cancer was recently discharged on Lovenox bridging with Coumadin presents with right thigh intramuscular hematoma. PLAN: 1. Right thigh intramuscular hematoma Likely due to Lovenox, has good pulses, doesn't appear to have compartment syndrome at this time, last dose of Lovenox was less than 8 hours ago, ordered protamine sulfate 80 mg 1. Last dose of Coumadin was last night, INR 1.6 today, vitamin K 2.5 mg 1 ordered. Evaluated by orthopedic surgery, no need for surgical intervention at this time. 2. Multiple sclerosis. Not on maintenance medications, stable. 3. Arterial thrombosis Anticoagulation being held secondary to hematoma 4. Diabetes mellitus. Sliding scale insulin with fingersticks every 6 hours. DVT prophylaxis: TEDs GI prophylaxis: Not needed Vital Signs Vital Signs Date Time Temp Pulse Resp B/P (MAP) Pulse Ox O2 Delivery O2 Flow Rate FiO2 06/08/19 13:00 66 18 124/67 (86) 100 Room Air 06/08/19 07:21 97.1 Laboratory Data Labs 24H Laboratory Tests 2 06/08/19 07:51: Immature Granulocyte % (Auto) 0.3, Neutrophils (%) (Auto) 67.2H, Lymphocytes (%) (Auto) 24.3, Monocytes (%) (Auto) 7.2H, Eosinophils (%) (Auto) 0.7, Basophils (%) (Auto) 0.3, Neutrophils # (Auto) 6.6, Lymphocytes # (Auto) 2.4, Monocytes # (Auto) 0.7, Eosinophils # (Auto) 0.1, Basophils # (Auto) 0.0, Nucleated Red Blood Cells % (auto) 0.0, Erythrocyte Sedimentation Rate 73H, Prothrombin Time 19.0H, Prothromb Time International Ratio 1.62, Activated Partial Thromboplast Time 53.1H, Lactic Acid Level 2.0, Total Bilirubin 0.3, Direct Bilirubin 0.1, Aspartate Amino Transf (AST/SGOT) 54H, Alanine Aminotransferase (ALT/SGPT) 87H, Alkaline Phosphatase 133H, Total Creatine Kinase 32L, Creatine Kinase MB < 1.0, Creatine Kinase MB Relative Index 3.12, Troponin I < 0.02, C-Reactive Protein, Quantitative 1.37H, Total Protein 8.0, Albumin 3.1L, Albumin/Globulin Ratio 0.63L, Lipase 105 06/08/19 07:58: POC Glucose (Misc Panel) 171H, POC Sodium (Misc Panel) 141, POC Potassium (Misc Panel) 4.0, POC Chloride (Misc Panel) 100, POC Total CO2 (Misc Panel) 26.0, POC Blood Urea Nitrogen (Misc Panel 28H, POC Ionized Calcium (Misc Panel) 5.1, POC Creatinine (Misc Panel) 1.2, POC Hematocrit (Misc Panel) 30.0L CBC/BMP Laboratory Tests 06/08/19 07:51 Microbiology Microbiology 06/08/19 Blood Culture, Received Pending 06/08/19 Blood Culture, Received Pending Home Medications Scheduled Alpha Lipoic Acid (Alpha Lipoic Acid) 200 Mg Tab, 200 MG PO BID Ascorbic Acid (Vitamin C) 500 Mg Cap, 500 MG PO DAILY Baclofen (Baclofen) 10 Mg Tablet, 5 MG PO Q8H Calcium Carbonate (Calcium) 500 Mg Tablet, 500 MG PO DAILY Cholecalciferol (Vitamin D3) (Vitamin D3) 1,000 Unit Capsule, 2,000 UNIT PO QHS Enoxaparin Sodium (Enoxaparin Sodium) 80 Mg/0.8 Ml Syringe, 80 MG SC Q12H Metformin HCl (Metformin ER Osmotic) 1,000 Mg Tab, 1,000 MG PO QPM Metoprolol Tartrate (Metoprolol Tartrate) 25 Mg Tablet, 25 MG PO BID Warfarin Sodium (Coumadin) 7.5 Mg Tab, 7.5 MG PO QPM Scheduled PRN Ammonium Lactate (Ammonium Lactate) 12% Lotion, 1 DOSE TOP DAILY PRN for DRY SKIN APPLIES TO AREAS OF DRY SKIN Allergies Coded Allergies: gabapentin (Verified Adverse Reaction, Intermediate, elevates MS symptoms, 06/08/19) modafinil (Verified Adverse Reaction, Intermediate, elevate MS symptoms, 06/08/19) omeprazole (Verified Adverse Reaction, Intermediate, elevated MS symptoms, 06/08/19) Vlabjlk-Ank-Fsl Reductase Inhibitor (Verified Adverse Reaction, Mild, "PASSES OUT", 06/08/19) glatiramer (copolymer 1) (Verified Adverse Reaction, Mild, weakness, 06/08/19) A-FIB/CHADSVASC A-FIB History Current/History of A-Fib/PAF?: No CHRIS QUINTANILLA MD Jun 08, 2019 14:30
[2019-06-08] MEDS ORDERED: PILL CUTTER 1 EACH XX ONE (15:25)
[2019-06-08 15:55] VITALS: BP 127/65
[2019-06-08 16:26] LABS: HEMATOCRIT 26.8 % (42.0-52.0); HEMOGLOBIN 8.7 g/dl (13.5-17.5); MEAN CORPUSCULAR HEMOGLOBIN 31.4 pg (27.0-33.0); MEAN CORPUSCULAR HGB CONC 32.5 g/dl (32.0-36.5); MEAN CORPUSCULAR VOLUME 96.8 fl (80.0-96.0); PLATELET COUNT, AUTOMATED 225 10^3/uL (150-450); RED BLOOD COUNT 2.77 10^6/uL (4.30-6.10); WHITE BLOOD COUNT 11.3 10^3/uL (4.0-10.0)
[2019-06-08] MEDS: HumaLOG INSULIN (NovoLOG) PER UNIT SC SCH ×2 (17:22→21:00)
[2019-06-08 20:00] VITALS: BP 139/75
[2019-06-08] MEDS ORDERED: BACLOFEN 5MG PER 1/2 TABLET PO PRN (21:45)
[2019-06-08] MEDS: ACETAMINOPHEN TAB 650MG DOSE (2X325MG) PO PRN (22:02)
[2019-06-08] MEDS ORDERED: SLF 3 ML SYR IV PRN (22:45)
[2019-06-09] VITALS (12 sets, daily range): BP systolic 131–161; BP diastolic 74–82
[2019-06-09] MEDS: ACETAMINOPHEN TAB 650MG DOSE (2X325MG) PO PRN ×2 (03:52→14:44)
[2019-06-09] MEDS: SLF 3 ML SYR IV SCH ×3 (03:52→22:14)
[2019-06-09 05:25] LABS: HEMATOCRIT 24.2 % (42.0-52.0); HEMOGLOBIN 7.9 g/dl (13.5-17.5); MEAN CORPUSCULAR HEMOGLOBIN 31.2 pg (27.0-33.0); MEAN CORPUSCULAR HGB CONC 32.6 g/dl (32.0-36.5); MEAN CORPUSCULAR VOLUME 95.7 fl (80.0-96.0); PLATELET COUNT, AUTOMATED 239 10^3/uL (150-450); RED BLOOD COUNT 2.53 10^6/uL (4.30-6.10); WHITE BLOOD COUNT 8.6 10^3/uL (4.0-10.0)
[2019-06-09 05:51] LABS: ALBUMIN 2.7 GM/DL (3.2-5.2); BILIRUBIN,TOTAL 0.3 MG/DL (0.2-1.0); CALCIUM LEVEL 8.4 MG/DL (8.8-10.2); CREATININE FOR GFR 1.29 MG/DL (0.70-1.30); GLOMERULAR FILTRATION RATE 57.6 (>42); MAGNESIUM LEVEL 1.3 MG/DL (1.8-2.4); POTASSIUM SERUM 3.9 MEQ/L (3.5-5.1); TOTAL PROTEIN 7.2 GM/DL (6.4-8.2)
--- NOTE | 2019-06-09 08:41 | ECGEPIP ---
[facility] - ED Test Date: 2019-06-08 Pat Name: MIGUEL MAS Department: Room: - Gender: Male [employer] Work[employer]: di : 1945 Requested By: Tj Mathews Order Number: [id number] Reading MD: Simeon Krishnan Measurements Intervals [place] Rate: 58 P: 15 [place]: 143 QRS: 8 QRSD: 118 T: 37 QT: 421 QTc: 416 Interpretive Statements SINUS BRADYCARDIA INCOMPLETE RIGHT BUNDLE BRANCH BLOCK SIMILAR TO 04/15/19 Electronically Signed on 06-09-2019 8:41:33 EST by Simeon Krishnan
[2019-06-09] MEDS: HumaLOG INSULIN (NovoLOG) PER UNIT SC SCH ×4 (08:51→20:36)
--- NOTE | 2019-06-09 08:56 | IPNPDOC ---
Subjective Date Seen The patient was seen on 06/09/19. Subjective Chief Complaint/HPI thrombosis Events since last encounter Admitted for Right upper thigh pain. Noted to have hematoma in Right upper leg on imaging. Most likely due to warfarin/lovenox bridge therapy for EGD/colonoscopy. Anti-coagulation currently on hold. patient has recent dx of possible malignancy, biopsy of liver and from recent EGD/colonoscopy is pending. Today, patient c/o pain to right upper thigh and difficulty with mobility. Constitutional: Denies: Chills, Fever, Night Sweats ENT: Denies: Head Aches, Ear Pain, Dysphagia Skin: Denies: Rash, Lesions, Breakdown Pulmonary: Denies: Dyspnea, Cough Cardiovascular: Denies: Chest Pain, Palpitations, Orthopnea, Paroxysmal Noc. Dyspnea, Lt Headedness Gastrointestinal: Denies: Nausea, Vomiting, Abdominal Pain, Diarrhea, Constipation Genitourinary: Denies: Dysuria, Frequency, Incontinence, Retention Psych: Reports: Mood Normal; Denies: Depression, Memory Issues Objective Physical Examination General Exam: Positive: Alert, No Acute Distress ENT Exam: Positive: Atraumatic, Mucous membr. moist/pink, Pharynx Normal Chest Exam: Positive: Clear to auscultation, Normal air movement Heart Exam: Positive: Rate Normal, Regular Rhythm, Normal S1, Normal S2; Negative: Murmurs, Rubs Abdomen Exam: Positive: Normal bowel sounds, Soft; Negative: Tenderness, Hepatospenomegaly Extremity Exam: Positive: Normal pulses; Negative: Edema Skin Exam: Positive: Other skin issue (right upper thigh with hardened area along lateral aspect, tender to touch) Psych Exam: Positive: Other (crying, frustrated) Assessment /Plan Problems (1) Hematoma of leg Status: Acute Problem Text: elevated leg. monitor H/H> s/p ortho consult and compartment syndrome r/o. Advised conservative medical management. (2) Liver mass Status: Acute Problem Text: pathology results pending. 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 Received Protamine and Vitamin K 06/08/19 (5) Diabetes mellitus Status: Chronic Plan/VTE VTE Prophylaxis Ordered?: No VTE Exclusion Pharmacological: Other (hematoma) VS, I&O, 24H, Fishbone Vital Signs/I&O Vital Signs Date Time Temp Pulse Resp B/P (MAP) Pulse Ox O2 Delivery O2 Flow Rate FiO2 06/09/19 04:00 97.7 84 16 145/78 (100) 98 Room Air I&O- Last 24 Hours up to 6 AM 06/09/19 06:00 Intake Total 1050 ml Output Total 500 ml Balance 550 ml Laboratory Data 24H LABS Laboratory Tests 2 06/08/19 16:13: Nucleated Red Blood Cells % (auto) 0.0 06/08/19 16:19: Bedside Glucose (Misc Panel) 164H 06/08/19 20:50: Bedside Glucose (Misc Panel) 144H 06/09/19 05:07: Nucleated Red Blood Cells % (auto) 0.0, Anion Gap 4L, Glomerular Filtration Rate 57.6, Calcium Level 8.4L, Magnesium Level 1.3L, Total Bilirubin 0.3, Aspartate Amino Transf (AST/SGOT) 56H, Alanine Aminotransferase (ALT/SGPT) 71, Alkaline Phosphatase 106, Total Protein 7.2, Albumin 2.7L, Albumin/Globulin Ratio 0.60L CBC/BMP Laboratory Tests 06/08/19 16:13 06/09/19 05:07 Microbiology Microbiology 06/08/19 Blood Culture - Preliminary, Resulted No growth after 24 hours . All specim... 06/08/19 Blood Culture - Preliminary, Resulted No growth after 24 hours . All specim... Kavya Serrato [employer]SC[employer] DIRECTOR Jun 09, 2019 08:56
[2019-06-09 12:41] LABS: BASO % 0.2 % (0.0-1.0); EOS # 0.1 10^3/uL (0.0-0.5); HEMOGLOBIN 7.6 g/dl (13.5-17.5); LYMPH # 1.6 10^3/uL (1.5-5.0); LYMPH % 19.9 % (24.0-44.0); MEAN CORPUSCULAR HEMOGLOBIN 31.4 pg (27.0-33.0); MONO # 0.7 10^3/uL (0.0-0.8); NEUTROPHILS # 5.6 10^3/uL (1.5-8.5); NEUTROPHILS % 69.3 % (36.0-66.0); PLATELET COUNT, AUTOMATED 222 10^3/uL (150-450); RED BLOOD COUNT 2.42 10^6/uL (4.30-6.10)
[2019-06-09 19:59] LABS: HEMATOCRIT 26.1 % (42.0-52.0); HEMOGLOBIN 8.4 g/dl (13.5-17.5)
[2019-06-09 21:30] LABS: BILIRUBIN, URINE MANUAL NEGATIVE (NEGATIVE); GLUCOSE, URINE (UA) MANUAL 2+(250 MG/DL) mg/dL (NEGATIVE); KETONE, URINE MANUAL NEGATIVE (NEGATIVE); UROBILINOGEN, URINE MANUAL NORMAL (NORMAL)
[2019-06-09 21:44] LABS: BACTERIA, URINE SMALL AMOUNT; HYALINE CAST, URINE NONE SEEN /lpf (0-1); SQUAMOUS EPITHELIAL CELL URINE NONE SEEN /hpf (SMALL AMT)
[2019-06-09 21:45] LABS: MUCUS, URINE SMALL AMOUNT (NEGATIVE)
[2019-06-09] MEDS: AUGMENTIN 875 MG TAB PO SCH (23:22)
[2019-06-10 02:21] LABS: HEMATOCRIT 25.9 % (42.0-52.0); HEMOGLOBIN 8.5 g/dl (13.5-17.5); MEAN CORPUSCULAR HEMOGLOBIN 30.4 pg (27.0-33.0); MEAN CORPUSCULAR HGB CONC 32.8 g/dl (32.0-36.5); MEAN CORPUSCULAR VOLUME 92.5 fl (80.0-96.0); PLATELET COUNT, AUTOMATED 238 10^3/uL (150-450); WHITE BLOOD COUNT 13.6 10^3/uL (4.0-10.0)
[2019-06-10 04:00] VITALS: BP 145/84
[2019-06-10 05:16] LABS: BASO % 0.2 % (0.0-1.0); EOS % 0.2 % (0.0-3.0); HEMATOCRIT 25.6 % (42.0-52.0); HEMOGLOBIN 8.3 g/dl (13.5-17.5); LYMPH # 2.3 10^3/uL (1.5-5.0); MEAN CORPUSCULAR HEMOGLOBIN 30.9 pg (27.0-33.0); MEAN CORPUSCULAR HGB CONC 32.4 g/dl (32.0-36.5); MEAN CORPUSCULAR VOLUME 95.2 fl (80.0-96.0); MONO # 1.1 10^3/uL (0.0-0.8); MONO % 8.3 % (0.0-5.0); NEUTROPHILS # 9.8 10^3/uL (1.5-8.5); NEUTROPHILS % 73.8 % (36.0-66.0); PLATELET COUNT, AUTOMATED 221 10^3/uL (150-450); RED BLOOD COUNT 2.69 10^6/uL (4.30-6.10); WHITE BLOOD COUNT 13.3 10^3/uL (4.0-10.0)
[2019-06-10 05:28] LABS: INR 1.07; PROTHROMBIN TIME 13.6 SECONDS (11.8-14.0)
[2019-06-10 05:38] LABS: ALBUMIN 2.6 GM/DL (3.2-5.2); ALT/SGPT 90 U/L (12-78); BILIRUBIN,TOTAL 0.5 MG/DL (0.2-1.0); BLOOD UREA NITROGEN 26 MG/DL (7-18); CALCIUM LEVEL 8.3 MG/DL (8.8-10.2); CARBON DIOXIDE LEVEL 26 MEQ/L (21-32); CHLORIDE LEVEL 111 MEQ/L (98-107); CREATININE FOR GFR 1.18 MG/DL (0.70-1.30); GLOMERULAR FILTRATION RATE > 60.0 (>42); GLUCOSE, FASTING 177 MG/DL (70-100); POTASSIUM SERUM 3.8 MEQ/L (3.5-5.1); SODIUM LEVEL 142 MEQ/L (136-145); TOTAL PROTEIN 7.5 GM/DL (6.4-8.2)
[2019-06-10] MEDS: SLF 3 ML SYR IV SCH ×3 (06:28→20:02)
[2019-06-10 08:00] VITALS: BP 136/79
[2019-06-10] MEDS: HumaLOG INSULIN (NovoLOG) PER UNIT SC SCH ×4 (08:15→20:01)
[2019-06-10] MEDS: AUGMENTIN 875 MG TAB PO SCH ×2 (08:15→20:02)
--- NOTE | 2019-06-10 10:06 | IPNPDOC ---
Subjective Date Seen The patient was seen on 06/10/19. Subjective Chief Complaint/HPI Pt this morning states that he is doing alright. His pain is reasonably controlled. States that he really doesn't have much pain when laying still but when he tried to put weight on his RLE his pain increasing and becomes intolerable. He states that he otherwise is really feeling well. Nursing reports that overnight he had two jorge stools. General: Denies: Fatigue Constitutional: Denies: Chills, Fever ENT: Denies: Head Aches Pulmonary: Denies: Dyspnea, Cough Cardiovascular: Denies: Chest Pain, Palpitations Gastrointestinal: Reports: Melena; Denies: Nausea, Vomiting, Diarrhea Musculoskeletal: Reports: Back Pain; Denies: Neck Pain Psych: Reports: Mood Normal; Denies: Anxiety Objective Physical Examination General Exam: Positive: Alert, No Acute Distress ENT Exam: Positive: Atraumatic, Mucous membr. moist/pink, Pharynx Normal Chest Exam: Positive: Clear to auscultation, Normal air movement Heart Exam: Positive: Rate Normal, Regular Rhythm, Normal S1, Normal S2; Negative: Murmurs, Rubs Abdomen Exam: Positive: Normal bowel sounds, Soft; Negative: Tenderness, Hepatospenomegaly Extremity Exam: Positive: Normal pulses; Negative: Edema Skin Exam: Positive: Other skin issue (right upper thigh with hardened area along lateral aspect, tender to touch) Psych Exam: Positive: Mental status NL Assessment /Plan Problems (1) Melena Status: Acute Discussed With: Nurse Problem Specific Plan: Monitor Clinically, Repeat Labs Problem Text: 06/11 Pt underwent EGD/colonoscopy 06/07 with gastric bx and removal of two polyps. Anticoags held due to hematoma. INR 1.07 this morning. Monitor Hgb, received 1 unit pRBCs 06/09. (2) Hematoma of leg Status: Acute Problem Text: 06/10 Enc keeping leg elevated, cont to monitor Hgb jeremiah given jorge stools overnight. Pt obtains relief from cold compress and will cont to use this. 06/09 elevated leg. monitor H/H> s/p ortho consult and compartment syndrome r/o. Advised conservative medical management. (3) Liver mass Status: Acute Problem Text: Path suggestive of Cirrhosis, chronic hepatitis. (4) Multiple sclerosis Status: Chronic Problem Text: Needs PT before returning home. 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 06/09 warfarin on hold due to hematoma. Received Protamine and Vitamin K (6) Diabetes mellitus Status: Chronic Plan/VTE VTE Prophylaxis Ordered?: No VTE Exclusion Pharmacological: Other (hematoma) Plan Therapy: PT Family Medicine Attending Note: I saw and examined Mr. Smith, discussed with FLORINA Dee. Agree with her note as documented. He reports that the tension in his legs going down and that the ice helps. We are going to have to figure out what to do with his anticoagulation; he was on full anticoagulation with enoxaparin but his INR was still subtherapeutic. He vehemently denies any trauma to the area which means this was a spontaneous bleed into his thigh. I am concerned about the reports of melena as well, but his hemoglobin has thus far remained stable. Possibly he is eliminating old blood that he lost shortly after his biopsies last week. We'll need to monitor carefully. 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, I&O, 24H, Fishbone Vital Signs/I&O Vital Signs Date Time Temp Pulse Resp B/P (MAP) Pulse Ox O2 Delivery O2 Flow Rate FiO2 06/10/19 08:00 98.1 90 20 136/79 (98) 99 Room Air I&O- Last 24 Hours up to 6 AM 06/10/19 06:00 Intake Total 1630 ml Output Total 0 ml Balance 1630 ml Laboratory Data 24H LABS Laboratory Tests 2 06/09/19 11:41: Bedside Glucose (Misc Panel) 174H 06/09/19 12:27: Immature Granulocyte % (Auto) 0.6, Neutrophils (%) (Auto) 69.3H, Lymphocytes (%) (Auto) 19.9L, Monocytes (%) (Auto) 9.0H, Eosinophils (%) (Auto) 1.0, Basophils (%) (Auto) 0.2, Neutrophils # (Auto) 5.6, Lymphocytes # (Auto) 1.6, Monocytes # (Auto) 0.7, Eosinophils # (Auto) 0.1, Basophils # (Auto) 0.0, Nucleated Red Blood Cells % (auto) 0.0 06/09/19 17:32: Bedside Glucose (Misc Panel) 266H 06/09/19 20:01: Bedside Glucose (Misc Panel) 209H 06/09/19 21:12: Urine Color (JEAN) YELLOW, Urine Appearance (JEAN) HAZYH, Urine pH (JEAN) 5.0, Urine Specific [place] (JEAN) 1.015, Urine Protein NEGATIVE, Bedside Urine Glucose (UA) 2+(250 MG/DL)H, Bedside Urine Ketones (LAB) NEGATIVE, Bedside Urine Blood POSITIVEH, Bedside Urine Nitrite (LAB) NEGATIVE, Bedside Urine Bilirubin (LAB) NEGATIVE, Bedside Urine Urobilinogen (LAB) NORMAL, Bedside Urine Leukocyte Esterase (L POSITIVEH, Urine Sediment Examination PERFORMED, Urine RBC 3-5H, Urine WBC TNTCH, Urine Squamous Epithelial Cells NONE SEEN, Urine Bacteria SMALL AMOUNTH, Urine Hyaline Casts NONE SEEN, Urine Mucus SMALL AMOUNTH 06/10/19 02:08: Nucleated Red Blood Cells % (auto) 0.0 06/10/19 04:49: Nucleated Red Blood Cells % (auto) 0.0, Immature Granulocyte % (Auto) 0.5, Neutrophils (%) (Auto) 73.8H, Lymphocytes (%) (Auto) 17.0L, Monocytes (%) (Auto) 8.3H, Eosinophils (%) (Auto) 0.2, Basophils (%) (Auto) 0.2, Neutrophils # (Auto) 9.8H, Lymphocytes # (Auto) 2.3, Monocytes # (Auto) 1.1H, Eosinophils # (Auto) 0.0, Basophils # (Auto) 0.0, Prothrombin Time 13.6, Prothromb Time International Ratio 1.07, Anion Gap 5L, Glomerular Filtration Rate > 60.0, Calcium Level 8.3L, Total Bilirubin 0.5#, Aspartate Amino Transf (AST/SGOT) 119H, Alanine Aminotransferase (ALT/SGPT) 90H, Alkaline Phosphatase 115, Total Protein 7.5, Albumin 2.6L, Albumin/Globulin Ratio 0.53L CBC/BMP Laboratory Tests 06/09/19 12:27 06/09/19 19:49 06/10/19 02:08 06/10/19 04:49 Microbiology Microbiology 06/10/19 Stool Occult Blood (CHERELLE) - Final, Complete 06/09/19 Urine Culture, Received Pending 06/08/19 Blood Culture - Preliminary, Resulted No Growth after 48 hours. All Specime... 06/08/19 Blood Culture - Preliminary, Resulted No Growth after 48 hours. All Specime... NESTOR HAAS PA-C Jun 10, 2019 10:06 am Yves Arriaza MD Jun 10, 2019 9:51 pm
[2019-06-10 12:00] VITALS: BP 131/78
[2019-06-10 16:00] VITALS: BP 140/74
[2019-06-10 20:00] VITALS: BP 128/67
[2019-06-11] VITALS (15 sets, daily range): BP systolic 110–139; BP diastolic 55–76
[2019-06-11 05:43] LABS: BASO % 0.4 % (0.0-1.0); EOS # 0.2 10^3/uL (0.0-0.5); EOS % 1.6 % (0.0-3.0); HEMATOCRIT 24.4 % (42.0-52.0); HEMOGLOBIN 7.8 g/dl (13.5-17.5); LYMPH # 1.6 10^3/uL (1.5-5.0); LYMPH % 17.8 % (24.0-44.0); MEAN CORPUSCULAR HEMOGLOBIN 30.7 pg (27.0-33.0); MEAN CORPUSCULAR VOLUME 96.1 fl (80.0-96.0); MONO # 0.9 10^3/uL (0.0-0.8); MONO % 9.3 % (0.0-5.0); NEUTROPHILS # 6.4 10^3/uL (1.5-8.5); NEUTROPHILS % 70.2 % (36.0-66.0); PLATELET COUNT, AUTOMATED 226 10^3/uL (150-450); RED BLOOD COUNT 2.54 10^6/uL (4.30-6.10); WHITE BLOOD COUNT 9.2 10^3/uL (4.0-10.0)
[2019-06-11] MEDS: SLF 3 ML SYR IV SCH ×3 (05:46→22:10)
[2019-06-11 06:09] LABS: ALBUMIN 2.3 GM/DL (3.2-5.2); ALT/SGPT 105 U/L (12-78); BILIRUBIN,TOTAL 0.7 MG/DL (0.2-1.0); BLOOD UREA NITROGEN 29 MG/DL (7-18); CALCIUM LEVEL 8.1 MG/DL (8.8-10.2); CARBON DIOXIDE LEVEL 25 MEQ/L (21-32); CHLORIDE LEVEL 107 MEQ/L (98-107); GLOMERULAR FILTRATION RATE > 60.0 (>42); GLUCOSE, FASTING 158 MG/DL (70-100); POTASSIUM SERUM 3.7 MEQ/L (3.5-5.1); SODIUM LEVEL 139 MEQ/L (136-145); TOTAL PROTEIN 7.1 GM/DL (6.4-8.2)
[2019-06-11] MEDS: AUGMENTIN 875 MG TAB PO SCH ×2 (09:41→22:10)
[2019-06-11] MEDS: HumaLOG INSULIN (NovoLOG) PER UNIT SC SCH ×4 (09:41→21:00)
--- NOTE | 2019-06-11 15:12 | IPNPDOC ---
Subjective Date Seen The patient was seen on 06/11/19. Subjective Chief Complaint/HPI Hermilo reports she feels okay today. His hemoglobin did drop this morning and he required 2 additional units of packed red blood cells. Nursing also reports that he has had to be straight cathed 4 times in the last several days. This morning they requested a Urban catheter to be placed because of this. He does have a left inguinal hernia which is been present for some time. He reports he feels he needs to hold over the area when he coughs because it hurts if he does not. Other than this it does not cause him pain. [facility] reports [facility] but they told him that if it did not become strangulated he should just leave it alone. He and his family are interested in talking about the results of his recent biopsies. He has had a couple small bowel movements which been brown today; no further maroon colored stools have been noted. General: Reports: Normal Appetite Constitutional: Denies: Chills, Fever Cardiovascular: Denies: Chest Pain, Palpitations Gastrointestinal: Denies: Abdominal Pain, Melena, Hematochezia Genitourinary: Reports: Retention Musculoskeletal: Reports: Leg Pain (his left thigh still hurts but reportedly feels less tight today) Psych: Reports: Mood Normal Objective Physical Examination General Exam: Positive: Alert, Cooperative (laying in bed talking to his children when I entered the room), No Acute Distress Eye Exam: Positive: Conjunctiva & lids normal; Negative: Sclera icteric ENT Exam: Positive: Atraumatic, Mucous membr. moist/pink, Pharynx Normal Neck Exam: Positive: Supple; Negative: Lymphadenopathy Chest Exam: Positive: Clear to auscultation, Normal air movement Heart Exam: Positive: Rate Normal, Regular Rhythm, Normal S1, Normal S2; Negative: Murmurs, Rubs Abdomen Exam: Positive: Normal bowel sounds, Soft; Negative: Tenderness, Hepatospenomegaly Male Exam: Positive: Hernia (he has a large (probably direct) left inguinal hernia. I did attempt to reduce this today. I was able to reduce the size some, but was unable to come close to reduce in the entire hernia.); Negative: Discharge (Urban catheter is in place) Extremity Exam: Positive: Normal pulses, Tenderness, Swelling (the hematoma in his right thigh is probably a little smaller, although it's difficult to truly assess this. ); Negative: Edema Skin Exam: Positive: Other skin issue (There is some ecchymosis noted on his right posteriolateral thigh now. I believe that this is extravasation of blood from the hematoma over the last couple days.) Neuro Exam: Positive: Normal Speech Psych Exam: Positive: Mental status NL Assessment /Plan Problems (1) Acute blood loss anemia Status: Acute Discussed With: Nurse, Patient, Family with Pt Consent Problem Specific Plan: Repeat Labs Problem Text: He received an additional 2 units of packed red blood cells today for total of 3 this admission. I ordered a repeat H&H after the transfusion is complete. We'll monitor. (2) Melena Status: Acute Response to Treatment: Improving Discussed With: Nurse Problem Specific Plan: Monitor Clinically, Repeat Labs Problem Text: This seems to be stabilizing her improving today. Hopefully the fact that he is off his anticoagulation will allow him to stop bleeding in his colon. Pt underwent EGD/colonoscopy 06/07 with gastric bx and removal of two polyps (tubular adenomas). Anticoags held due to hematoma. (3) Hematoma of leg Status: Acute Problem Text: Enc keeping leg elevated. Pt obtains relief from cold compress and will cont to use this. I counseled him on expectations for the hematoma and the ecchymosis that is likely to continue to develop an draining down into dependent areas of the next days and even weeks. Need to find the right balance between keeping him moving and exacerbating the hematoma. I discussed this with nursing. 06/09 elevated leg. monitor H/H> s/p ortho consult and compartment syndrome r/o. Advised conservative medical management. (4) Urinary retention Status: Acute Discussed With: Nurse, Starch Dumper, Patient, Family with Pt Consent Problem Specific Plan: Consult Specialist Problem Text: He has had urinary retention for several days during this admission. This is a relatively new finding for him. I have not yet started him on an alpha jaiden, although that is not a terrible idea. They do have a number of interactions and side effects. I'd like to have the surgical evaluation done to make sure medications are indicated before starting medication. Right now his retention is controlled with a Urban catheter. (5) Left inguinal hernia Status: Chronic Problem Specific Plan: Consult Specialist Problem Text: I'm beginning to wonder whether his large left inguinal hernia is causing some urinary retention. When I reviewed the CT scan that was obtained on admission I see some areas that might confirm this (particularly slices [id number]). I've consulted Dr. Avitia of [facility] to offer an opinion. If this hernia does need to be fixed, now would be a good time to do so since he's already off anticoagulation. Delaying surgery would usually makes sense in light of his current unstable anemia issues. However, in this particular circumstance I think it would add more risk as the patient will have to go on and off anticoagulation again and he has recently had a moderately severe side effect of heparin bridging therapy. I'll wait to see what Dr. Avitia has to say. 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 Cont to hold anticoag at this time. 06/09 warfarin on hold due to hematoma. Received Protamine and Vitamin K 06/08/19 (7) Diabetes mellitus Status: Chronic Problem Text: His sugars were a little less controlled than usual today. The patient and his family report that he had a special Thanksgiving meal yesterday and it's probably the reason. We'll continue to monitor for now. (8) Transaminitis Status: Acute Problem Specific Plan: Monitor Clinically, Repeat Labs Problem Text: While his recent evaluation for his liver mass did not show life- threatening illness, he does have increasingly elevated liver enzymes while her e. I am not entirely certain of the etiology, but we will monitor and pursue further evaluation if the trend continues. (9) Multiple sclerosis Status: Chronic Problem Text: Needs PT before returning home. (10) Liver mass Status: Chronic Problem Text: Path suggestive of Cirrhosis, chronic hepatitis. Plan/VTE VTE Prophylaxis Ordered?: No (SCD present on his left lower extremity only) VTE Exclusion Pharmacological: Other (hematoma) Plan Therapy: PT VS, I&O, 24H, Fishbone Vital Signs/I&O Vital Signs Date Time Temp Pulse Resp B/P (MAP) Pulse Ox O2 Delivery O2 Flow Rate FiO2 06/11/19 14:00 98.7 95 21 128/68 99 Room Air I&O- Last 24 Hours up to 6 AM 06/11/19 06:00 Intake Total 1060 ml Output Total 1275 ml Balance -215 ml Laboratory Data 24H LABS Laboratory Tests 2 06/10/19 16:52: Bedside Glucose (Misc Panel) 173H 06/10/19 19:42: Bedside Glucose (Misc Panel) 257H 06/11/19 04:59: Immature Granulocyte % (Auto) 0.7, Neutrophils (%) (Auto) 70.2H, Lymphocytes (%) (Auto) 17.8L, Monocytes (%) (Auto) 9.3H, Eosinophils (%) (Auto) 1.6, Basophils (%) (Auto) 0.4, Neutrophils # (Auto) 6.4, Lymphocytes # (Auto) 1.6, Monocytes # (Auto) 0.9H, Eosinophils # (Auto) 0.2, Basophils # (Auto) 0.0, Nucleated Red Blood Cells % (auto) 0.2H, Anion Gap 7L, Glomerular Filtration Rate > 60.0, Calcium Level 8.1L, Total Bilirubin 0.7, Aspartate Amino Transf (AST/SGOT) 131H, Alanine Aminotransferase (ALT/SGPT) 105H, Alkaline Phosphatase 108, Total Protein 7.1, Albumin 2.3L, Albumin/Globulin Ratio 0.48L 06/11/19 11:48: Bedside Glucose (Misc Panel) 202H CBC/BMP Laboratory Tests 06/11/19 04:59 Microbiology Microbiology 06/10/19 Stool Occult Blood (CHERELLE) - Final, Complete 06/09/19 Urine Culture - Final, Complete Escherichia Coli 06/08/19 Blood Culture - Preliminary, Resulted No Growth after 72 hours. All specime... 06/08/19 Blood Culture - Preliminary, Resulted No Growth after 72 hours. All specime... Yves Arriaza MD Jun 11, 2019 15:12
[2019-06-11 16:03] LABS: HEMATOCRIT 32.8 % (42.0-52.0)
[2019-06-11 16:06] LABS: HEMOGLOBIN 10.6 g/dl (13.5-17.5)
[2019-06-11] MEDS ORDERED: MAG SULF 1GM/100ML (MAG RUN) 1 GM in IV 1 EA IV ONE (17:00)
[2019-06-12 04:00] VITALS: BP 119/57
[2019-06-12 04:13] LABS: BASO % 0.4 % (0.0-1.0); EOS # 0.2 10^3/uL (0.0-0.5); EOS % 1.4 % (0.0-3.0); HEMATOCRIT 29.4 % (42.0-52.0); HEMOGLOBIN 9.8 g/dl (13.5-17.5); LYMPH # 1.6 10^3/uL (1.5-5.0); LYMPH % 15.4 % (24.0-44.0); MEAN CORPUSCULAR HGB CONC 33.3 g/dl (32.0-36.5); MONO # 0.9 10^3/uL (0.0-0.8); MONO % 8.9 % (0.0-5.0); NEUTROPHILS # 7.8 10^3/uL (1.5-8.5); NEUTROPHILS % 73.4 % (36.0-66.0); PLATELET COUNT, AUTOMATED 248 10^3/uL (150-450); RED BLOOD COUNT 3.16 10^6/uL (4.30-6.10); WHITE BLOOD COUNT 10.6 10^3/uL (4.0-10.0)
[2019-06-12 04:32] LABS: ALBUMIN 2.3 GM/DL (3.2-5.2); ALT/SGPT 121 U/L (12-78); BILIRUBIN,TOTAL 0.9 MG/DL (0.2-1.0); BLOOD UREA NITROGEN 31 MG/DL (7-18); CALCIUM LEVEL 8.4 MG/DL (8.8-10.2); CARBON DIOXIDE LEVEL 24 MEQ/L (21-32); CHLORIDE LEVEL 106 MEQ/L (98-107); CREATININE FOR GFR 1.06 MG/DL (0.70-1.30); GLOMERULAR FILTRATION RATE > 60.0 (>42); GLUCOSE, FASTING 189 MG/DL (70-100); MAGNESIUM LEVEL 1.7 MG/DL (1.8-2.4); POTASSIUM SERUM 3.6 MEQ/L (3.5-5.1); SODIUM LEVEL 138 MEQ/L (136-145)
[2019-06-12] MEDS: SLF 3 ML SYR IV SCH ×3 (05:06→20:25)
[2019-06-12 08:00] VITALS: BP 125/71
[2019-06-12] MEDS: HumaLOG INSULIN (NovoLOG) PER UNIT SC SCH ×4 (08:18→20:25)
[2019-06-12] MEDS: AUGMENTIN 875 MG TAB PO SCH ×2 (08:18→20:25)
[2019-06-12 12:00] VITALS: BP 136/68
--- NOTE | 2019-06-12 15:53 | IPNPDOC ---
Subjective Date Seen The patient was seen on 06/12/19. Subjective Chief Complaint/HPI Hermilo reports that he feels relatively good today. He reports that he has not had any more bloody stools, but he has had a lot of intestinal gas today. He met with Dr. Avitia earlier today who was able to almost completely reduce his hernia. I spoke with Dr. Avitia regarding his evaluation too. He reports that the hernia doesn't HAVE to be fixed, but that if the patient wants it done now is a pretty good time to do so since he is off of his anticoagulation already. Mr. Smith reports that he would like to have it done, so the procedure is a nticipated for tomorrow morning. General: Reports: Normal Appetite Constitutional: Denies: Chills, Fever Pulmonary: Denies: Dyspnea, Cough Cardiovascular: Denies: Chest Pain, Palpitations Genitourinary: Reports: Retention Musculoskeletal: Reports: Leg Pain (improving in the right thigh) Psych: Reports: Mood Normal Objective Physical Examination General Exam: Positive: Alert, Cooperative (laying in bed talking to his family when I entered the room), No Acute Distress Eye Exam: Positive: Conjunctiva & lids normal; Negative: Sclera icteric ENT Exam: Positive: Atraumatic, Mucous membr. moist/pink, Pharynx Normal Neck Exam: Positive: Supple; Negative: Lymphadenopathy Chest Exam: Positive: Clear to auscultation, Normal air movement Heart Exam: Positive: Rate Normal, Regular Rhythm, Normal S1, Normal S2; Negative: Murmurs, Rubs Abdomen Exam: Positive: Normal bowel sounds, Soft; Negative: Tenderness, Hepatospenomegaly Male Exam: Negative: Discharge (Urban catheter is in place) Extremity Exam: Positive: Normal pulses, Tenderness, Swelling (the hematoma in his right thigh is again a little smaller. ); Negative: Edema Skin Exam: Positive: Other skin issue (There is some ecchymosis noted on his right posteriolateral thigh now. I believe that this is extravasation of blood from the hematoma over the last couple days.) Neuro Exam: Positive: Normal Speech Psych Exam: Positive: Mental status NL Assessment /Plan Problems (1) Acute blood loss anemia Status: Acute Discussed With: Nurse, Patient, Family with Pt Consent Problem Specific Plan: Repeat Labs Problem Text: His hemoglobin dropped from 10.6 after the transfusion to 9.8 today. This may be re-equilibration of fluids after the transfusion. I ordered a repeat H&H this afternoon to assess whether it continues to trend down or whether this is physiologic fluctuation. He has received a total of 3 units of packed red blood cells this admission. (2) Hematoma of leg Status: Acute Problem Text: Enc keeping leg elevated. Pt obtains relief from cold compress and will cont to use this. I counseled him on expectations for the hematoma and the ecchymosis that is likely to continue to develop an draining down into dependent areas of the next days and even weeks. Need to find the right balance between keeping him moving and exacerbating the hematoma. I discussed this with nursing. 06/09 elevated leg. monitor H/H> s/p ortho consult and compartment syndrome r/o. Advised conservative medical management. (3) Left inguinal hernia Status: Chronic Problem Specific Plan: Consult Specialist Problem Text: Dr. Avitia saw him earlier today and had a long conversation with the patient. The conclusion of their discussion was that Hermilo would like his hernia repaired during this admission. Dr. Avitia is planning on doing so tomorrow. (4) Urinary retention Status: Acute Discussed With: Nurse, Belt Lacer, Patient, Family with Pt Consent Problem Specific Plan: Consult Specialist Problem Text: He has had urinary retention for several days during this admission. This is a relatively new finding for him. I have not yet started him on an alpha jaiden, although that is not a terrible idea. They do have a number of interactions and side effects. I'd like to have the hernia repair completed to make sure medications are truly needed before starting medication. Right now his retention is controlled with a Urban catheter. 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 He is starting to ask questions like, "Must I go back on anticoagulants after this admission?" Cont to hold anticoag at this time for the recent bleeding and anticipated surgery. 06/09 warfarin on hold due to hematoma. Received Protamine and Vitamin K 06/08/19 (6) Diabetes mellitus Status: Chronic Problem Text: His sugars were a little less controlled than usual today. The patient and his family report that he had a special Thanksgiving meal yesterday and it's probably the reason. We'll continue to monitor for now. (7) Transaminitis Status: Acute Problem Specific Plan: Monitor Clinically, Repeat Labs Problem Text: While his recent evaluation for his liver mass did not show life- threatening illness, he does have increasingly elevated liver enzymes while here. I am not entirely certain of the etiology, but we will monitor and pursue further evaluation if the trend continues. (8) Multiple sclerosis Status: Chronic Problem Text: Needs PT before returning home. (9) Liver mass Status: Chronic Problem Text: Path suggestive of Cirrhosis, chronic hepatitis. (10) Melena Status: Resolved Response to Treatment: Improving Discussed With: Nurse Problem Specific Plan: Monitor Clinically, Repeat Labs Problem Text: He's had no more bloody stools. Hopefully he has stopped bleeding entirely. Pt underwent EGD/colonoscopy 06/07 with gastric bx and removal of two polyps (tubular adenomas). Anticoags held due to hematoma. Plan/VTE VTE Prophylaxis Ordered?: No (SCD present on his left lower extremity only) VTE Exclusion Pharmacological: Other (hematoma) Plan Diet: Make NPO (after midnight for anticipated surgery) Therapy: PT Anticipated Discharge: Sub Acute Rehab At this point in time he is at increased risk for complication during surgery, however, as long as his hemoglobin remains stable and his liver function tests do not get substantially worse, I believe that his chronic medical conditions are as controlled as they're going to be anytime in the near future. There are no acute changes that might decrease his risk during surgery. Therefore I believe he is medically optimized for the anticipated procedure tomorrow. I will check labs in the morning and respond to them as needed. Disposition He will almost certainly need some subacute rehabilitation after this admission. VS, I&O, 24H, [facility] Vital Signs/I&O Vital Signs Date Time Temp Pulse Resp B/P (MAP) Pulse Ox O2 Delivery O2 Flow Rate FiO2 06/12/19 12:00 98.4 82 18 136/68 (90) 100 Room Air I&O- Last 24 Hours up to 6 AM 06/12/19 06:00 Intake Total 1716 ml Output Total 2125 ml Balance -409 ml Laboratory Data 24H LABS Laboratory Tests 2 06/11/19 17:25: Bedside Glucose (Misc Panel) 196H 06/11/19 21:14: Bedside Glucose (Misc Panel) 189H 06/12/19 03:54: Immature Granulocyte % (Auto) 0.5, Neutrophils (%) (Auto) 73.4H, Lymphocytes (%) (Auto) 15.4L, Monocytes (%) (Auto) 8.9H, Eosinophils (%) (Auto) 1.4, Basophils (%) (Auto) 0.4, Neutrophils # (Auto) 7.8, Lymphocytes # (Auto) 1.6, Monocytes # (Auto) 0.9H, Eosinophils # (Auto) 0.2, Basophils # (Auto) 0.0, Nucleated Red Blood Cells % (auto) 0.0, Anion Gap 8, Glomerular Filtration Rate > 60.0, Calcium Level 8.4L, Magnesium Level 1.7L, Total Bilirubin 0.9, Aspartate Amino Transf (AST/SGOT) 183H, Alanine Aminotransferase (ALT/SGPT) 121H, Alkaline Phosphatase 134H, Total Protein 7.0, Albumin 2.3L, Albumin/Globulin Ratio 0.49L 06/12/19 11:42: Bedside Glucose (Misc Panel) 222H CBC/BMP Laboratory Tests 06/12/19 03:54 Microbiology Microbiology 06/10/19 Stool Occult Blood (CHERELLE) - Final, Complete 06/09/19 Urine Culture - Final, Complete Escherichia Coli 06/08/19 Blood Culture - Preliminary, Resulted No Growth after 72 hours. All specime... 06/08/19 Blood Culture - Preliminary, Resulted No Growth after 72 hours. All specime... Yves Arriaza MD Jun 12, 2019 3:53 pm
[2019-06-12 16:00] VITALS: BP 128/76
[2019-06-12 17:11] LABS: HEMATOCRIT 31.1 % (42.0-52.0); HEMOGLOBIN 10.1 g/dl (13.5-17.5)
[2019-06-12 20:00] VITALS: BP 163/72
[2019-06-12 23:59] VITALS: BP 127/59
[2019-06-13] VITALS (11 sets, daily range): BP systolic 117–153; BP diastolic 68–80
[2019-06-13 05:13] LABS: BASO % 0.5 % (0.0-1.0); EOS # 0.2 10^3/uL (0.0-0.5); EOS % 1.7 % (0.0-3.0); HEMATOCRIT 30.8 % (42.0-52.0); HEMOGLOBIN 9.9 g/dl (13.5-17.5); LYMPH # 1.7 10^3/uL (1.5-5.0); LYMPH % 18.9 % (24.0-44.0); MEAN CORPUSCULAR HEMOGLOBIN 30.9 pg (27.0-33.0); MEAN CORPUSCULAR HGB CONC 32.1 g/dl (32.0-36.5); MEAN CORPUSCULAR VOLUME 96.3 fl (80.0-96.0); MONO # 0.9 10^3/uL (0.0-0.8); NEUTROPHILS % 68.3 % (36.0-66.0); PLATELET COUNT, AUTOMATED 275 10^3/uL (150-450); WHITE BLOOD COUNT 8.8 10^3/uL (4.0-10.0)
[2019-06-13] MEDS: SLF 3 ML SYR IV SCH ×3 (05:26→21:12)
[2019-06-13 05:37] LABS: ALBUMIN 2.2 GM/DL (3.2-5.2); ALT/SGPT 137 U/L (12-78); BILIRUBIN,TOTAL 1.1 MG/DL (0.2-1.0); BLOOD UREA NITROGEN 32 MG/DL (7-18); CALCIUM LEVEL 7.9 MG/DL (8.8-10.2); CARBON DIOXIDE LEVEL 26 MEQ/L (21-32); CHLORIDE LEVEL 111 MEQ/L (98-107); CREATININE FOR GFR 1.22 MG/DL (0.70-1.30); GLOMERULAR FILTRATION RATE > 60.0 (>42); GLUCOSE, FASTING 187 MG/DL (70-100); MAGNESIUM LEVEL 1.7 MG/DL (1.8-2.4); POTASSIUM SERUM 3.7 MEQ/L (3.5-5.1); SODIUM LEVEL 142 MEQ/L (136-145); TOTAL PROTEIN 7.2 GM/DL (6.4-8.2)
[2019-06-13] MEDS: AUGMENTIN 875 MG TAB PO SCH ×2 (08:46→21:12)
[2019-06-13] MEDS: HumaLOG INSULIN (NovoLOG) PER UNIT SC SCH ×4 (08:47→21:00)
[2019-06-13] MEDS ORDERED: MAG SULF 1GM/100ML (MAG RUN) 1 GM in IV 1 EA IV ONE (09:00)
--- NOTE | 2019-06-13 10:53 | IPNPDOC ---
Text Note Date of Service The patient was seen on 06/13/19. NOTE No acute events overnight. He talked with his , and he is going to have the surgery. We discussed the risks and benefits again this am, and he signed the consent. VSSAF NAD abd - soft, nt, nD, large partially reducible LIH labs - below A) 74y/o male with incarcerated LIH P) NPO OR for RA LIH repair today consent is signed. Jeromy Avitia DO VS,Sammi, I+O VSSammi, I+O Laboratory Tests 06/12/19 16:50 06/13/19 04:46 Vital Signs Date Time Temp Pulse Resp B/P (MAP) Pulse Ox O2 Delivery O2 Flow Rate FiO2 06/13/19 08:00 98.7 85 18 123/75 (91) 98 Room Air I&O- Last 24 Hours up to 6 AM 06/13/19 06:00 Intake Total 1200 ml Output Total 1900 ml Balance -700 ml HARDEEP AVITIA DO Jun 13, 2019 10:53
[2019-06-13] MEDS ORDERED: LIDOCAINE 2% INJ 100 MG/5 ML SDV (FOR ANES.) As Ordered ONE (11:14)
[2019-06-13] MEDS ORDERED: ROCURONIUM BROMIDE 50 MG/5 ML VIAL As Ordered ONE ×2 (11:14→13:03)
[2019-06-13] MEDS ORDERED: ONDANSETRON 4MG/2ML VIAL (J2405) As Ordered ONE (11:14)
[2019-06-13] MEDS ORDERED: PROPOFOL 200 MG/20 ML VIAL As Ordered ONE (11:14)
[2019-06-13] MEDS ORDERED: fentaNYL 250 MCG/5 ML INJECTION (J3010) As Ordered ONE (11:16)
[2019-06-13] MEDS ORDERED: MIDAZOLAM INJ 2 MG/2 ML VIAL (J2250) As Ordered ONE (11:17)
[2019-06-13] MEDS ORDERED: BUPIVACAINE/EPIN 0.25% 30 ML VIAL As Ordered ONE (11:44)
[2019-06-13] MEDS ORDERED: PHENYLephrine HCL 500 MCG/5 ML (100MCG/ML) SYRINGE (J2370) As Ordered ONE (12:18)
[2019-06-13] MEDS ORDERED: LACRILUBE (AKWA TEARS) OPHTH OINT 3.5 GM As Ordered ONE (13:01)
[2019-06-13] MEDS ORDERED: SUGAMMADEX SODIUM 500 MG/5 ML VIAL (BRIDION) As Ordered ONE (13:05)
[2019-06-13] MEDS ORDERED: ACETAMINOPHEN 1000MG 100ML IV BTL (OFIRMEV) (J0131 PER 10MG) As Ordered ONE (13:17)
[2019-06-13] MEDS ORDERED: IBUPROFEN 600 MG TAB PO PRN (14:15)
[2019-06-13] MEDS ORDERED: ONDANSETRON 4MG/2ML VIAL (J2405) IV PRN (14:30)
[2019-06-13] MEDS ORDERED: fentaNYL 100 MCG/2 ML INJECTION (J3010) IV PRN (14:30)
[2019-06-13] MEDS ORDERED: oxyCODONE 5MG TAB PO PRN (14:30)
[2019-06-13] MEDS ORDERED: LR 1,000 ML IV SCH (14:30)
[2019-06-13] MEDS ORDERED: NORCO, ANEXSIA 5/325MG TABLET (HYDROcodone/ACETAMINOPHEN) PO PRN (15:00)
--- NOTE | 2019-06-13 15:36 | IPNPDOC ---
Subjective Date Seen The patient was seen on 06/13/19. Subjective Chief Complaint/HPI I saw Hermilo today shortly after he returned from his herniorraphy. He seemed to be doing well. His Hb was stable this morning. His magnesium level was slightly low at 1.7 this morning, so I gave him 1 Mag Run before he had his procedure. He continues to report that he has quite a lot of gas, but he hasn't had any more episodes of hematochezia. He is thinking about discharge planning right now. He has consistently talked about wanting sub-acute rehab after this hospitalization, but today he was asking about acute rehab too. I explained the differences to him and he will think about it more. He will let us know tomorrow if he would like an ARU screen when he is nearing discharge. General: Denies: Normal Appetite Constitutional: Denies: Chills, Fever ENT: Reports: Sore Throat (post-intubation) Pulmonary: Denies: Cough Cardiovascular: Denies: Chest Pain, Palpitations Gastrointestinal: Reports: Abdominal Pain; Denies: Nausea, Vomiting Genitourinary: Denies: Dysuria, Hematuria Endocrine: Denies: Polydipsia, Polyphagia, Polyuria Psych: Reports: Mood Normal Objective Physical Examination General Exam: Positive: Alert, Cooperative (laying in bed talking to his family when I entered the room), No Acute Distress Eye Exam: Positive: Conjunctiva & lids normal; Negative: Sclera icteric ENT Exam: Positive: Atraumatic, Mucous membr. moist/pink, Pharynx Normal Neck Exam: Positive: Supple; Negative: Lymphadenopathy Chest Exam: Positive: Clear to auscultation, Normal air movement Heart Exam: Positive: Rate Normal, Regular Rhythm, Normal S1, Normal S2; Negative: Murmurs, Rubs Abdomen Exam: Positive: BS Hypoactive, Soft, Tenderness, Other (the dressings over his port sites are c/d/i); Negative: Hernia Male Exam: Positive: Discharge (Urban catheter is in place) Extremity Exam: Positive: Normal pulses, Tenderness, Swelling (the hematoma in his right thigh is again a little smaller. ); Negative: Edema Skin Exam: Positive: Other skin issue (There is some ecchymosis noted on his ri ght posteriolateral thigh now. I believe that this is extravasation of blood from the hematoma over the last couple days.) Neuro Exam: Positive: Normal Speech Psych Exam: Positive: Mental status NL, Mood NL Assessment /Plan Problems (1) Left inguinal hernia Status: Chronic Problem Specific Plan: Consult Specialist Problem Text: He had a robotic assisted L inguinal herniorraphy with Dr. Avitia today and seemed to do well. I appreciate his assistance. (2) Acute blood loss anemia Status: Acute Response to Treatment: Stable Discussed With: Nurse, Patient, Family with Pt Consent Problem Specific Plan: Monitor Clinically, Repeat Labs Problem Text: His hemoglobin dropped from 10.1 after the transfusion to 9.9 today. This is most likely physiologic fluctuation; I'm pleased that he doesn't seem to be bleeding anymore. He has received a total of 3 units of packed red blood cells this admission. (3) Urinary retention Status: Acute Discussed With: Nurse, International Freight Forwarder, Patient, Family with Pt Consent Problem Specific Plan: Consult Specialist Problem Text: He has had urinary retention for several days during this admission. This is a relatively new finding for him. I have not yet started him on an alpha jaiden, although that is not a terrible idea. They do have a number of interactions and side effects. I'd like to have the hernia repair completed to make sure medications are truly needed before starting medication. Right now his retention is controlled with a Urban catheter. I'd like to see if he can do without the catheter tomorrow, now the hernia isn't putting pressure on the lo wer urinary tract. If he can't then I don't see an option but to replace the Urban and start him on an alpha jaiden and a 5-NICOLAS. (4) Hematoma of leg Status: Acute Problem Text: Enc keeping leg elevated. Pt obtains relief from cold compress and will cont to use this. I counseled him on expectations for the hematoma and the ecchymosis that is likely to continue to develop an draining down into dependent areas of the next days and even weeks. Need to find the right balance between keeping him moving and exacerbating the hematoma. I discussed this with nursing. 06/09 elevated leg. monitor H/H> s/p ortho consult and compartment syndrome r/o. Advised conservative medical management. 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 He is starting to ask questions like, "Must I go back on anticoagulants after this admission?" Cont to hold anticoag at this time for the recent bleeding and anticipated surgery. 06/09 warfarin on hold due to hematoma. Received Protamine and Vitamin K 06/08/19 (6) Diabetes mellitus Status: Chronic Problem Text: His sugars were a better controlled today. We'll continue to monitor for now. (7) Transaminitis Status: Acute Problem Specific Plan: Monitor Clinically, Repeat Labs Problem Text: While his recent evaluation for his liver mass did not show life- threatening illness, he does have increasingly elevated liver enzymes while here. I am not entirely certain of the etiology, but we will monitor and pursue further evaluation if the trend continues. (8) Multiple sclerosis Status: Chronic Problem Text: Needs PT before returning home. (9) Liver mass Status: Chronic Problem Text: Path suggestive of Cirrhosis, chronic hepatitis. (10) Melena Status: Resolved Response to Treatment: Improving Discussed With: Nurse Problem Specific Plan: Monitor Clinically, Repeat Labs Problem Text: He's had no more bloody stools. Hopefully he has stopped bleeding entirely. Pt underwent EGD/colonoscopy 06/07 with gastric bx and removal of two polyps (tubular adenomas). Anticoags held due to hematoma. Plan/VTE VTE Prophylaxis Ordered?: No (SCD present on his left lower extremity only) VTE Exclusion Pharmacological: Other (hematoma) Plan Therapy: PT Anticipated Discharge: Sub Acute Rehab (vs. ARU per discussion today) VS, I&O, 24H, Fishbone Vital Signs/I&O Vital Signs Date Time Temp Pulse Resp B/P (MAP) Pulse Ox O2 Delivery O2 Flow Rate FiO2 06/13/19 14:40 79 18 114/70 (85) 98 Room Air 06/13/19 14:35 97.7 06/13/19 14:20 2 I&O- Last 24 Hours up to 6 AM 06/13/19 06:00 Intake Total 1200 ml Output Total 1900 ml Balance -700 ml Laboratory Data 24H LABS Laboratory Tests 2 06/12/19 16:31: Bedside Glucose (Misc Panel) 240H 06/12/19 19:47: Bedside Glucose (Misc Panel) 265H 06/13/19 04:46: Immature Granulocyte % (Auto) 0.6, Neutrophils (%) (Auto) 68.3H, Lymphocytes (%) (Auto) 18.9L, Monocytes (%) (Auto) 10.0H, Eosinophils (%) (Auto) 1.7, Basophils (%) (Auto) 0.5, Neutrophils # (Auto) 6.0, Lymphocytes # (Auto) 1.7, Monocytes # (Auto) 0.9H, Eosinophils # (Auto) 0.2, Basophils # (Auto) 0.0, Nucleated Red Blood Cells % (auto) 0.0, Anion Gap 5L, Glomerular Filtration Rate > 60.0, Calcium Level 7.9L, Magnesium Level 1.7L, Total Bilirubin 1.1H, Aspartate Amino Transf (AST/SGOT) 155H, Alanine Aminotransferase (ALT/SGPT) 137H, Alkaline Phosphatase 168H, Total Protein 7.2, Albumin 2.2L, Albumin/Globulin Ratio 0.44L 06/13/19 11:55: Bedside Glucose (Misc Panel) 126H CBC/BMP Laboratory Tests 06/12/19 16:50 06/13/19 04:46 Microbiology Microbiology 06/10/19 Stool Occult Blood (CHERELLE) - Final, Complete 06/09/19 Urine Culture - Final, Complete Escherichia Coli 06/08/19 Blood Culture - Final, Complete NO GROWTH AFTER 5 DAYS 06/08/19 Blood Culture - Final, Complete NO GROWTH AFTER 5 DAYS Yves Arriaza MD Jun 13, 2019 3:36 pm
[2019-06-13] MEDS: SODIUM CHLORIDE NASAL 0.65% SPRAY BTL (OCEAN) PRN ×2 (16:38→21:14)
[2019-06-14] VITALS: BP 130/70
[2019-06-14] MEDS: SODIUM CHLORIDE NASAL 0.65% SPRAY BTL (OCEAN) PRN (00:24)
[2019-06-14] MEDS ORDERED: CEPACOL LOZENGE PO PRN (02:45)
[2019-06-14 04:00] VITALS: BP 123/73
[2019-06-14 05:12] LABS: BASO # 0.1 10^3/uL (0.0-0.2); BASO % 0.5 % (0.0-1.0); EOS # 0.3 10^3/uL (0.0-0.5); EOS % 3.1 % (0.0-3.0); HEMATOCRIT 30.8 % (42.0-52.0); LYMPH # 1.6 10^3/uL (1.5-5.0); LYMPH % 15.8 % (24.0-44.0); MEAN CORPUSCULAR HGB CONC 32.5 g/dl (32.0-36.5); MEAN CORPUSCULAR VOLUME 95.4 fl (80.0-96.0); MONO # 0.7 10^3/uL (0.0-0.8); MONO % 6.9 % (0.0-5.0); NEUTROPHILS # 7.4 10^3/uL (1.5-8.5); NEUTROPHILS % 73.2 % (36.0-66.0); PLATELET COUNT, AUTOMATED 318 10^3/uL (150-450); RED BLOOD COUNT 3.23 10^6/uL (4.30-6.10); WHITE BLOOD COUNT 10.2 10^3/uL (4.0-10.0)
[2019-06-14 05:37] LABS: ALBUMIN 2.2 GM/DL (3.2-5.2); ALT/SGPT 114 U/L (12-78); BILIRUBIN,TOTAL 1.2 MG/DL (0.2-1.0); BLOOD UREA NITROGEN 30 MG/DL (7-18); CALCIUM LEVEL 8.5 MG/DL (8.8-10.2); CARBON DIOXIDE LEVEL 24 MEQ/L (21-32); CHLORIDE LEVEL 107 MEQ/L (98-107); CREATININE FOR GFR 1.02 MG/DL (0.70-1.30); GLOMERULAR FILTRATION RATE > 60.0 (>42); GLUCOSE, FASTING 139 MG/DL (70-100); POTASSIUM SERUM 3.9 MEQ/L (3.5-5.1); SODIUM LEVEL 138 MEQ/L (136-145); TOTAL PROTEIN 7.1 GM/DL (6.4-8.2)
[2019-06-14] MEDS: SLF 3 ML SYR IV SCH ×3 (05:41→22:38)
--- NOTE | 2019-06-14 06:15 | IPNPDOC ---
Text Note Date of Service The patient was seen on 06/14/19. NOTE No acute events overnight. He is tolerating diet. Pain is well controlled. No complaints. VSSAF NAD abd - soft, TTP appropriate, nD, incisions c/d/i labs - pending A) 74y/o male with incarcerated LIH POD#1 s/p RA LIH repair P) reg diet PT stable for dc from surgical standpoint f/u in office in 2 weeks ok to shower no baths for 5 days no lifting more than 20 pounds PT is ok without restrictions. Jeromy Avitia DO VS,Fishbone, I+O VS, Fishbone, I+O Laboratory Tests 06/14/19 04:50 Vital Signs Date Time Temp Pulse Resp B/P (MAP) Pulse Ox O2 Delivery O2 Flow Rate FiO2 06/14/19 00:00 99.4 97 16 130/70 (90) 97 NIPPV (BIPAP/CPAP) 06/13/19 14:20 2 I&O- Last 24 Hours up to 6 AM 06/14/19 06:00 Intake Total 2140 ml Output Total 1630 ml Balance 510 ml HARDEEP AVITIA DO Jun 14, 2019 06:15
[2019-06-14 07:28] VITALS: BP 142/82
[2019-06-14] MEDS: AUGMENTIN 875 MG TAB PO SCH ×2 (08:21→21:15)
[2019-06-14] MEDS: HumaLOG INSULIN (NovoLOG) PER UNIT SC SCH ×4 (08:22→21:00)
[2019-06-14] MEDS: ACETAMINOPHEN TAB 650MG DOSE (2X325MG) PO PRN (08:24)
--- NOTE | 2019-06-14 10:12 | IPNPDOC ---
Subjective Date Seen The patient was seen on 06/14/19. Subjective Chief Complaint/HPI Pt this morning without new concerns. He states that his pain is controlled from his hernia repair yesterday. He is eating well and passing gas. He denies CP/cough or SOB. He understands that he will need rehab upon medical DC. General: Reports: Fatigue Constitutional: Denies: Chills, Fever Pulmonary: Denies: Dyspnea, Cough Cardiovascular: Denies: Chest Pain, Palpitations Gastrointestinal: Denies: Nausea, Vomiting, Diarrhea Neurological: Reports: Weakness Psych: Reports: Mood Normal Objective Physical Examination General Exam: Positive: Alert, Cooperative (sitting in bedside chair), No Acute Distress Eye Exam: Positive: Conjunctiva & lids normal; Negative: Sclera icteric ENT Exam: Positive: Atraumatic, Mucous membr. moist/pink, Pharynx Normal Neck Exam: Positive: Supple; Negative: Lymphadenopathy Chest Exam: Positive: Clear to auscultation, Normal air movement Heart Exam: Positive: Rate Normal, Regular Rhythm, Normal S1, Normal S2; Negative: Murmurs, Rubs Abdomen Exam: Positive: BS Hypoactive, Soft, Tenderness, Other (the dressings over his port sites are c/d/i); Negative: Hernia Male Exam: Positive: Discharge (Mijares catheter is in place) Extremity Exam: Positive: Normal pulses, Tenderness, Swelling (the hematoma in his right thigh is again a little smaller. ); Negative: Edema Skin Exam: Positive: Other skin issue (There is some ecchymosis noted on his right posteriolateral thigh now. I believe that this is extravasation of blood from the hematoma over the last couple days.) Neuro Exam: Positive: Normal Speech Psych Exam: Positive: Mental status NL, Mood NL Assessment /Plan Problems (1) Fever Status: Acute Problem Text: 06/14 100.2 c bibasilar rales, WBC to 10.2-? postop aspiration, check BCX, CXR, BW (2) Left inguinal hernia Status: Chronic Problem Specific Plan: Consult Specialist Problem Text: 06/14 He had a robotic assisted L inguinal herniorraphy with Dr. Avitia and seemed to do well. (3) Acute blood loss anemia Status: Acute Response to Treatment: Stable Discussed With: Nurse, Patient, Family with Pt Consent Problem Specific Plan: Monitor Clinically, Repeat Labs Problem Text: 06/14 Hgb stable this morning 10. 06/13 His hemoglobin dropped from 10.1 after the transfusion to 9.9 today. This is most likely physiologic fluctuation; I'm pleased that he doesn't seem to be bleeding anymore. He has received a total of 3 units of packed red blood cells this admission. (4) Urinary retention Status: Acute Discussed With: Nurse, Head Of Geography, Patient, Family with Pt Consent Problem Specific Plan: Consult Specialist Problem Text: favor (as per eCW chart) baseline neurogenic bladder c probable low level retention-ho UTI 06/14 dced mijares for TOV, checking PVR qshift 06/13 He has had urinary retention for several days during this admission. This is a relatively new finding for him. I have not yet started him on an alpha jaiden, although that is not a terrible idea. They do have a number of interactions and side effects. I'd like to have the hernia repair completed to make sure medications are truly needed before starting medication. Right now his retention is controlled with a Mijares catheter. I'd like to see if he can do without the catheter tomorrow, now the hernia isn't putting pressure on the lower urinary tract. If he can't then I don't see an option but to replace the Mijares and start him on an alpha jaiden and a 5-NICOLAS. (5) Hematoma of leg Status: Acute Problem Text: will hold all AC/AP agents until hematoma resolved and defer rest arting to PCP Enc keeping leg elevated. Pt obtains relief from cold compress and will cont to use this. I counseled him on expectations for the hematoma and the ecchymosis that is likely to continue to develop an draining down into dependent areas of the next days and even weeks. Need to find the right balance between keeping him moving and exacerbating the hematoma. I discussed this with nursing. 06/09 elevated leg. monitor H/H> s/p ortho consult and compartment syndrome r/o. Advised conservative medical management. 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 He is starting to ask questions like, "Must I go back on anticoagulants after this admission?" Cont to hold anticoag at this time for the recent bleeding and anticipated surgery. 06/09 warfarin on hold due to hematoma. Received Protamine and Vitamin K 06/08/19 (7) Diabetes mellitus Status: Chronic Problem Text: His sugars were a better controlled today. We'll continue to monitor for now. (8) Transaminitis Status: Acute Problem Specific Plan: Monitor Clinically, Repeat Labs Problem Text: While his recent evaluation for his liver mass did not show life- threatening illness, he does have increasingly elevated liver enzymes while here. I am not entirely certain of the etiology, but we will monitor and pursue further evaluation if the trend continues. (9) Multiple sclerosis Status: Chronic Problem Text: Needs PT before returning home. (10) Liver mass Status: Chronic Problem Text: Path suggestive of Cirrhosis, chronic hepatitis. (11) Melena Status: Resolved Response to Treatment: Improving Discussed With: Nurse Problem Specific Plan: Monitor Clinically, Repeat Labs Problem Text: He's had no more bloody stools. Hopefully he has stopped bleeding entirely. Pt underwent EGD/colonoscopy 06/07 with gastric bx and removal of two polyps (tubular adenomas). Anticoags held due to hematoma. Plan/VTE VTE Prophylaxis Ordered?: No (SCD present on his left lower extremity only) VTE Exclusion Pharmacological: Other (hematoma) Plan Therapy: PT Anticipated Discharge: Sub Acute Rehab (vs. ARU per discussion today) VS, I&O, 24H, Fishbone Vital Signs/I&O Vital Signs Date Time Temp Pulse Resp B/P (MAP) Pulse Ox O2 Delivery O2 Flow Rate FiO2 06/14/19 07:28 99.0 94 20 142/82 (102) 96 Room Air 06/13/19 14:20 2 I&O- Last 24 Hours up to 6 AM 06/14/19 06:00 Intake Total 2440 ml Output Total 2030 ml Balance 410 ml Laboratory Data 24H LABS Laboratory Tests 2 06/13/19 11:55: Bedside Glucose (Misc Panel) 126H 06/13/19 18:02: Bedside Glucose (Misc Panel) 161H 06/13/19 21:06: Bedside Glucose (Misc Panel) 80L 06/14/19 04:50: Immature Granulocyte % (Auto) 0.5, Neutrophils (%) (Auto) 73.2H, Lymphocytes (%) (Auto) 15.8L, Monocytes (%) (Auto) 6.9H, Eosinophils (%) (Auto) 3.1H, Basophils (%) (Auto) 0.5, Neutrophils # (Auto) 7.4, Lymphocytes # (Auto) 1.6, Monocytes # (Auto) 0.7, Eosinophils # (Auto) 0.3, Basophils # (Auto) 0.1, Nucleated Red Blood Cells % (auto) 0.0, Anion Gap 7L, Glomerular Filtration Rate > 60.0, Calcium Level 8.5L, Total Bilirubin 1.2H, Aspartate Amino Transf (AST/SGOT) 108H, Alanine Aminotransferase (ALT/SGPT) 114H, Alkaline Phosphatase 170H, Total Protein 7.1, Albumin 2.2L, Albumin/Globulin Ratio 0.45L CBC/BMP Laboratory Tests 06/14/19 04:50 Microbiology Microbiology 06/10/19 Stool Occult Blood (CHERELLE) - Final, Complete 06/09/19 Urine Culture - Final, Complete Escherichia Coli 06/08/19 Blood Culture - Final, Complete NO GROWTH AFTER 5 DAYS 06/08/19 Blood Culture - Final, Complete NO GROWTH AFTER 5 DAYS NESTOR HAAS PA-C Jun 14, 2019 10:12 Maged Trujillo M.D. Jun 14, 2019 14:50
--- NOTE | 2019-06-14 10:31 | CR ---
DATE OF CONSULTATION: 06/12/2019 REASON FOR CONSULTATION: Left inguinal hernia. HISTORY OF PRESENT ILLNESS: The patient is a 74-year-old male with history of a mass. He came into emergency room complaining of right thigh pain and swelling. He was recently in the hospital for biopsy of a liver mass, which came back negative for cancer. However, he was then restarted back on his Coumadin as well as Lovenox for bridging. He continued to take both of those resulting in a hypercoagulable state, which likely resulted in a hematoma of the right thigh. He is now back in the hospital getting his anticoagulation readjusted. He incidentally started having some new onset urinary retention. It was thought that, that may be secondary to this very large inguinal hernia in the left groin. So, I was asked to evaluate. He has had this he believes for up to about 10 years and slowly increasing in size. He has never had any problems with urinary retention in the past. He has had frequent urinary tract infections (UTIs) but he felt that, that was all secondary to his multiple sclerosis (MS). He did have a friend who also had MS and had frequent UTIs and the UTIs went away after having a hernia repair. So, he is taking that this may help with all of his urinary issues. Other than that no pain in the groin. No numbness or tingling. He does feel pressure when he is sitting or lifting anything, but other than that no problems with it. [facility] They recommended to avoid surgery unless it becomes strangulated PAST MEDICAL HISTORY: 1. Multiple sclerosis. 2. Arterial thrombi. 3. Diabetes. 4. Hypertension. 5. Liver mass. PAST SURGICAL HISTORY: TURP. SOCIAL HISTORY: Did use to be a smoker, quit 20 years ago. No alcohol or drug use. FAMILYHX: Noncontributory. ALLERGIES TO MEDICATIONS: Please see med rec. REVIEW OF SYSTEMS: Pertinent positive and negatives as stated in the history of present illness (HPI). PHYSICAL EXAMINATION: GENERAL: Alert and oriented times three. No acute distress. VITAL SIGNS: Temperature 98.6, pulse 104, respirations 20, blood pressure 134/72, pulse oximetry 99% room air. HEENT: Pupils equal, round and react to light and accommodation. HEART: S1, S2, regular rate and rhythm. LUNGS: Clear to auscultation bilaterally. ABDOMEN: Soft, nontender, nondistended. There is a very large inguinal hernia in the left. I was able to partially reduce it but could not reduce it completely. EXTREMITIES: Large right thigh hematoma with significant bruising and tenderness. Distal pulses are palpable. LABORATORY DATA: White count 10.6. Hemoglobin 9.8. Platelets 248. Potassium 3.6. Creatinine 1.06. IMAGING: CTA shows a large left inguinal hernia containing fat and nonobstructive colon. Large complex intramuscular fluid collection along the lateral aspect of the right thigh likely representing hematoma. 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 Right lower extremity atherosclerotic disease with single-vessel runoff suggested from the midcalf to the ankle. ASSESSMENT AND PLAN: The patient is a 74-year-old male with an incarcerated left inguinal hernia. Recommendation is to proceed with repair during this hospital stay. Risks and benefits of procedure not limited but including bleeding, infection, hernia formation, hernia recurrence, damage to surrounding structures, need for further surgery were discussed in detail with the patient. He is going to discuss this with his hayley and we will plan for surgery tomorrow morning if he agrees.
--- NOTE | 2019-06-14 11:06 | RO ---
DATE OF PROCEDURE: PREOPERATIVE DIAGNOSIS: Incarcerated left inguinal hernia. POSTOPERATIVE DIAGNOSIS: Incarcerated left inguinal hernia. PROCEDURE: Robotic incarcerated left inguinal hernia repair. SURGEON: EYEGLASS MAKER: None. ANESTHESIA: General. ESTIMATED BLOOD LOSS: 5. COMPLICATIONS: None. INDICATIONS FOR PROCEDURE: The patient is a 74-year-old male with a large incarcerated left inguinal hernia. He was in the hospital for other reasons. However, since he was on his anticoagulation and he was having some symptoms from his hernia recommendation was to proceed with surgery during this inpatient stay. He was cleared by medicine service. Risks and benefits of procedure not limited but including bleeding, infection, hernia formation, damage to surrounding structures, need for further surgery were discussed in detail with the patient and the patient's . Informed consent was obtained and procedure was planned. DESCRIPTION OF PROCEDURE: The patient was brought back to operating room #7. After sufficient sedation, the abdomen was sterilely prepped and draped. Next, a time-out was done to confirm proper patient and proper procedure. Following that an 8 mm incision was made supraumbilically in the midline. A Veress needle was then inserted and the abdomen was insufflated to 50 mmHg. The Veress needle was then removed and an 8 mm robotic Optiview port was used to gain access to the abdomen. Once the abdomen was entered, two more 8 mm ports were placed in the left and right midabdomen. The patient was then placed in Trendelenburg position. The robot was connected to the ports. From the console with some assistance from external pressure from the pulmonary function technician, I was able to gently reduce all of the bowel which was the majority of the sigmoid colon along with a bunch omentum out of the left inguinal hernia sac. Once that was reduced, I was able to take down some adhesions to help keep it out of the way long enough to do the procedure. I then made a curved incision just superior to the hernia sac into the preperitoneal space, dissected circumferentially around the hernia sac and then freed it up from all of the cord structures. Once that was completed, the hernia sac was dissected free posteriorly and then medially all way to the pubic symphysis. Once that was done, #2-0 V-Loc suture was used to close the fascial defect around the inguinal canal. A 3DMax light medium mesh was then placed into the preperitoneal space, sutured to the pubic symphysis with a #2-0 Vicryl suture. The peritoneum was then closed over top of the mesh with another running #2-0 V-Loc thus ending procedure. The patient tolerated procedure well. He was sent to the recovery room in stable condition.
[2019-06-14 12:00] VITALS: BP 154/93
[2019-06-14 16:00] VITALS: BP 156/82
--- NOTE | 2019-06-14 18:40 | REP ---
Two-view chest: 06/14/2019. Indication: Dyspnea. Fever. Comparison: 06/08/2019. Findings: Left lower lobe atelectasis is present. Superimposed left lower lobe air space consolidation is not excluded. There is no significant pleural effusion. There is no pneumothorax. Cardiac silhouette is unremarkable. Impression: Left lower lobe atelectasis and possible superimposed pneumonia. Electronically Signed by Maury Lazar DO 06/14/2019 06:32 P
[2019-06-14 19:12] LABS: BASO # 0.1 10^3/uL (0.0-0.2); BASO % 0.5 % (0.0-1.0); EOS # 0.2 10^3/uL (0.0-0.5); EOS % 2.6 % (0.0-3.0); HEMATOCRIT 31.8 % (42.0-52.0); LYMPH # 1.6 10^3/uL (1.5-5.0); LYMPH % 16.8 % (24.0-44.0); MEAN CORPUSCULAR HEMOGLOBIN 30.8 pg (27.0-33.0); MEAN CORPUSCULAR HGB CONC 31.4 g/dl (32.0-36.5); MEAN CORPUSCULAR VOLUME 97.8 fl (80.0-96.0); MONO # 0.6 10^3/uL (0.0-0.8); NEUTROPHILS # 6.9 10^3/uL (1.5-8.5); NEUTROPHILS % 73.6 % (36.0-66.0); PLATELET COUNT, AUTOMATED 311 10^3/uL (150-450); RED BLOOD COUNT 3.25 10^6/uL (4.30-6.10); WHITE BLOOD COUNT 9.4 10^3/uL (4.0-10.0)
[2019-06-14 19:41] LABS: C REACTIVE PROTEIN QUANTITATIV 12.5 MG/DL (0.00-0.30)
[2019-06-14 20:00] VITALS: BP 129/60
[2019-06-14] MEDS ORDERED: cefTRIAXone SOD 1 GM in D5W MINI-BAG PLUS 50 ML IV SCH (20:00)
[2019-06-14] MEDS ORDERED: FUROSEMIDE 20 MG/2 ML VIAL (J1940) IV ONE (22:15)
[2019-06-14] MEDS: PIPERACILLIN/TAZOBACTAM SOD 3.375 GM in D5W MINI-BAG PLUS 50 ML IV SCH (22:39)
[2019-06-15] VITALS: BP 131/72
[2019-06-15 04:00] VITALS: BP 128/69
[2019-06-15] MEDS: PIPERACILLIN/TAZOBACTAM SOD 3.375 GM in D5W MINI-BAG PLUS 50 ML IV SCH ×4 (04:25→22:29)
[2019-06-15 05:57] LABS: BASO % 0.4 % (0.0-1.0); EOS # 0.3 10^3/uL (0.0-0.5); EOS % 3.2 % (0.0-3.0); HEMATOCRIT 32.5 % (42.0-52.0); HEMOGLOBIN 10.4 g/dl (13.5-17.5); LYMPH # 2.1 10^3/uL (1.5-5.0); LYMPH % 21.2 % (24.0-44.0); MEAN CORPUSCULAR VOLUME 96.7 fl (80.0-96.0); MONO # 0.7 10^3/uL (0.0-0.8); MONO % 7.1 % (0.0-5.0); NEUTROPHILS # 6.7 10^3/uL (1.5-8.5); NEUTROPHILS % 67.3 % (36.0-66.0); PLATELET COUNT, AUTOMATED 359 10^3/uL (150-450); RED BLOOD COUNT 3.36 10^6/uL (4.30-6.10)
[2019-06-15] MEDS: SLF 3 ML SYR IV SCH ×3 (06:01→22:29)
[2019-06-15 06:03] LABS: ALBUMIN 2.3 GM/DL (3.2-5.2); BILIRUBIN,TOTAL 1.2 MG/DL (0.2-1.0); CALCIUM LEVEL 8.3 MG/DL (8.8-10.2); CREATININE FOR GFR 1.3 MG/DL (0.70-1.30); GLOMERULAR FILTRATION RATE 57.1 (>42); PERCENT SATURATION 14.5 % (19.7-50.0); POTASSIUM SERUM 3.9 MEQ/L (3.5-5.1); TOTAL PROTEIN 6.9 GM/DL (6.4-8.2)
[2019-06-15 08:01] VITALS: BP 133/85
[2019-06-15] MEDS: SENOKOT S TAB PO SCH ×2 (09:00→20:29)
[2019-06-15] MEDS: MIRALAX *UNIT DOSE* 17GM PACKET PO SCH ×2 (09:00→20:29)
[2019-06-15] MEDS: HumaLOG INSULIN (NovoLOG) PER UNIT SC SCH ×4 (09:32→20:30)
[2019-06-15] MEDS: AUGMENTIN 875 MG TAB PO SCH (09:32)
[2019-06-15 11:41] VITALS: BP 135/77
--- NOTE | 2019-06-15 13:23 | IPN ---
DATE: 06/15/2019 Hermilo is seen in the progressive care unit (PCU). He actually feels quite well. He underwent a robotic assisted repair of an incarcerated left inguinal hernia yesterday. He is recovering well. Hematoma on his right thigh is still resolving and he does not have much pain from this. He is still not on anticoagulant. He has been having problems with urination, 500 mL of urinary retention after his Urban catheter was taken out yesterday. I suspect that this is related to his multiple sclerosis and neurogenic bladder. He does see Dr. Fofana of urology and actually has an appointment later on this month. His liver functions are improving. He has a history of these waxing and waning but they are all trending down. He is currently on Zosyn for a suspected hospital-associated pneumonia. PHYSICAL EXAMINATION: Vital signs per flow sheet. He is afebrile. Maximum temperature (t-max) of 100.6. GENERAL APPEARANCE: Alert, conversant. He looks much better than the last time that I saw him. LUNGS: Few rhonchi. HEART: Regular rhythm. ABDOMEN: Soft, nontender. EXTREMITIES: Right thigh is less tense to palpate. Trace peripheral edema. IMPRESSION: 1. Suspected hospital associated pneumonia. He is on Zosyn, which was started yesterday. Clinically, he is improving. 2. Left inguinal hernia, incarcerated, status post repair yesterday. Postoperative course uncomplicated. 3. Hematoma of right thigh with acute blood anemia. Hemoglobin is stable. This is ordered daily. 4. Acute urinary retention. He has been constipated. Bowel care has been ordered. I suspect that he has neurogenic bladder from his multiple sclerosis. I am not sure whether starting an alpha jaiden or 5-NICOLAS is really going to help much as I am not sure whether this is as much benign prostatic hypertrophy (BPH) as MS/neurogenic bladder. I will defer to his urologist. In the meantime, I will start him on some tamsulosin. 5. 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 We need to restart anticoagulation at some point. 6. Diabetes. Blood sugars are under better control. 7. Abnormal liver function tests. These are trending down. He has a history of these waxing and waning. 8. Liver mass with biopsy showing chronic hepatitis and cirrhosis but no malignancy.
[2019-06-15 15:26] VITALS: BP 126/74
[2019-06-15 20:00] VITALS: BP 150/81
[2019-06-16] VITALS: BP 125/77
[2019-06-16 04:00] VITALS: BP 118/70
[2019-06-16] MEDS: PIPERACILLIN/TAZOBACTAM SOD 3.375 GM in D5W MINI-BAG PLUS 50 ML IV SCH ×4 (04:44→21:45)
[2019-06-16] MEDS: SLF 3 ML SYR IV SCH ×3 (05:12→22:00)
[2019-06-16 05:32] LABS: BASO # 0.1 10^3/uL (0.0-0.2); BASO % 0.6 % (0.0-1.0); EOS # 0.3 10^3/uL (0.0-0.5); EOS % 3.4 % (0.0-3.0); HEMATOCRIT 32.5 % (42.0-52.0); HEMOGLOBIN 9.9 g/dl (13.5-17.5); LYMPH # 1.7 10^3/uL (1.5-5.0); LYMPH % 18.4 % (24.0-44.0); MEAN CORPUSCULAR HEMOGLOBIN 30.2 pg (27.0-33.0); MEAN CORPUSCULAR HGB CONC 30.5 g/dl (32.0-36.5); MEAN CORPUSCULAR VOLUME 99.1 fl (80.0-96.0); MONO # 0.6 10^3/uL (0.0-0.8); NEUTROPHILS # 6.3 10^3/uL (1.5-8.5); NEUTROPHILS % 69.7 % (36.0-66.0); PLATELET COUNT, AUTOMATED 345 10^3/uL (150-450); RED BLOOD COUNT 3.28 10^6/uL (4.30-6.10)
[2019-06-16 05:58] LABS: BLOOD UREA NITROGEN 35 MG/DL (7-18); CALCIUM LEVEL 8.4 MG/DL (8.8-10.2); CARBON DIOXIDE LEVEL 26 MEQ/L (21-32); CHLORIDE LEVEL 107 MEQ/L (98-107); CREATININE FOR GFR 1.24 MG/DL (0.70-1.30); GLOMERULAR FILTRATION RATE > 60.0 (>42); GLUCOSE, FASTING 148 MG/DL (70-100); POTASSIUM SERUM 3.8 MEQ/L (3.5-5.1); SODIUM LEVEL 139 MEQ/L (136-145)
[2019-06-16 08:00] VITALS: BP 109/63
[2019-06-16] MEDS: SENOKOT S TAB PO SCH ×2 (08:32→21:45)
[2019-06-16] MEDS: HumaLOG INSULIN (NovoLOG) PER UNIT SC SCH ×4 (08:32→21:00)
[2019-06-16] MEDS: MIRALAX *UNIT DOSE* 17GM PACKET PO SCH ×2 (08:32→21:44)
[2019-06-16] MEDS: TAMSULOSIN 0.4 MG CAP PO SCH (09:53)
--- NOTE | 2019-06-16 10:40 | IPNPDOC ---
Subjective Date Seen The patient was seen on 06/16/19. Subjective Chief Complaint/HPI hematoma Events since last encounter POD #2 robotic assisted lap inguinal hernia repair. patient denies pain. Continues with urinary retention and intermittent catheterization q 8 hrs. Constitutional: Denies: Chills, Fever, Night Sweats Pulmonary: Denies: Dyspnea, Cough Cardiovascular: Denies: Chest Pain, Palpitations, Orthopnea, Paroxysmal Noc. Dyspnea, Lt Headedness Gastrointestinal: Reports: Constipation; Denies: Nausea, Vomiting, Abdominal Pain, Diarrhea Genitourinary: Reports: Retention Neurological: Reports: Weakness, Incoordination Psych: Reports: Mood Normal; Denies: Depression, Memory Issues Objective Physical Examination General Exam: Positive: Alert, Cooperative (sitting in bedside chair), No Acute Distress Eye Exam: Positive: Conjunctiva & lids normal; Negative: Sclera icteric ENT Exam: Positive: Atraumatic, Mucous membr. moist/pink, Pharynx Normal Neck Exam: Positive: Supple; Negative: Lymphadenopathy Chest Exam: Positive: Clear to auscultation, Normal air movement Heart Exam: Positive: Rate Normal, Regular Rhythm, Normal S1, Normal S2; Negative: Murmurs, Rubs Abdomen Exam: Positive: BS Hypoactive, Soft, Tenderness, Other (the dressings over his port sites are c/d/i); Negative: Hernia Extremity Exam: Positive: Normal pulses, Tenderness, Swelling (the hematoma in his right thigh is again a little smaller. ); Negative: Edema Skin Exam: Positive: Other skin issue (There is some ecchymosis noted on his r ight posteriolateral thigh now. I believe that this is extravasation of blood from the hematoma over the last couple days.) Neuro Exam: Positive: Normal Speech Psych Exam: Positive: Mental status NL, Mood NL Assessment /Plan Problems (1) Pneumonia Status: Acute Response to Treatment: Improving Problem Text: day #2 Zosyn. afebrile. WBC 9.0 CXR in am (2) Fever Status: Resolved Problem Text: 12/ 100.2 c bibasilar rales, WBC to 10.2-? postop aspiration, check BCX, CXR, BW (3) Left inguinal hernia Status: Chronic Problem Specific Plan: Consult Specialist Problem Text: 06/14 He had a robotic assisted L inguinal herniorraphy with Dr. Avitia and seemed to do well. (4) Acute blood loss anemia Status: Acute Response to Treatment: Stable Discussed With: Nurse, Patient, Family with Pt Consent Problem Specific Plan: Monitor Clinically, Repeat Labs Problem Text: 06/15/19: hgb stable at 9.9 06/14 Hgb stable this morning 10. 06/13 His hemoglobin dropped from 10.1 after the transfusion to 9.9 today. This is most likely physiologic fluctuation; I'm pleased that he doesn't seem to be bleeding anymore. He has received a total of 3 units of packed red blood cells this admission. (5) Urinary retention Status: Acute Discussed With: Nurse, Benefits Manager, Patient, Family with Pt Consent Problem Specific Plan: Consult Specialist Problem Text: favor (as per eCW chart) baseline neurogenic bladder c probable low level retention-ho UTI 06/14 dced mijares for TOV, checking PVR qshift 06/13 He has had urinary retention for several days during this admission. This is a relatively new finding for him. I have not yet started him on an alpha jaiden, although that is not a terrible idea. They do have a number of interactions and side effects. I'd like to have the hernia repair completed to make sure medications are truly needed before starting medication. Right now his retention is controlled with a Mijares catheter. I'd like to see if he can do without the catheter tomorrow, now the hernia isn't putting pressure on the lower urinary tract. If he can't then I don't see an option but to replace the Mijares and start him on an alpha jaiden and a 5-NICOLAS. (6) Hematoma of leg Status: Acute Problem Text: will hold all AC/AP agents until hematoma resolved and defer restarting to PCP Enc keeping leg elevated. Pt obtains relief from cold compress and will cont to use this. I counseled him on expectations for the hematoma and the ecchymosis that is likely to continue to develop an draining down into dependent areas of the next days and even weeks. Need to find the right balance between keeping him moving and exacerbating the hematoma. I discussed this with nursing. 06/09 elevated leg. monitor H/H> s/p ortho consult and compartment syndrome r/o. Advised conservative medical management. 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 He is starting to ask questions like, "Must I go back on anticoagulants after this admission?" Cont to hold anticoag at this time for the recent bleeding and anticipated surgery. 06/09 warfarin on hold due to hematoma. Received Protamine and Vitamin K 06/08/19 (8) Diabetes mellitus Status: Chronic Problem Text: His sugars were a better controlled today. We'll continue to monitor for now. (9) Transaminitis Status: Acute Problem Specific Plan: Monitor Clinically, Repeat Labs Problem Text: While his recent evaluation for his liver mass did not show life- threatening illness, he does have increasingly elevated liver enzymes while here. I am not entirely certain of the etiology, but we will monitor and pursue further evaluation if the trend continues. (10) Multiple sclerosis Status: Chronic Problem Text: Needs PT before returning home. (11) Liver mass Status: Chronic Problem Text: Path suggestive of Cirrhosis, chronic hepatitis. (12) Melena Status: Resolved Response to Treatment: Improving Discussed With: Nurse Problem Specific Plan: Monitor Clinically, Repeat Labs Problem Text: He's had no more bloody stools. Hopefully he has stopped bleeding entirely. Pt underwent EGD/colonoscopy 06/07 with gastric bx and removal of two polyps (tubular adenomas). Anticoags held due to hematoma. Plan/VTE VTE Prophylaxis Ordered?: No (SCD present on his left lower extremity only) VTE Exclusion Pharmacological: Other (hematoma) Plan Therapy: PT Anticipated Discharge: Sub Acute Rehab (vs. ARU per discussion today) VS, I&O, 24H, Fishbone Vital Signs/I&O Vital Signs Date Time Temp Pulse Resp B/P (MAP) Pulse Ox O2 Delivery O2 Flow Rate FiO2 06/16/19 08:00 97.7 87 18 109/63 (78) 96 Room Air 06/13/19 14:20 2 l I&O- Last 24 Hours up to 6 AM 06/16/19 06:00 Intake Total 1710 ml Output Total 1575 ml Balance 135 ml Laboratory Data 24H LABS Laboratory Tests 2 06/15/19 12:47: Bedside Glucose (Misc Panel) 197H 06/15/19 17:26: Bedside Glucose (Misc Panel) 164H 06/15/19 20:23: Bedside Glucose (Misc Panel) 263H 06/16/19 05:22: Immature Granulocyte % (Auto) 0.9, Neutrophils (%) (Auto) 69.7H, Lymphocytes (%) (Auto) 18.4L, Monocytes (%) (Auto) 7.0H, Eosinophils (%) (Auto) 3.4H, Basophils (%) (Auto) 0.6, Neutrophils # (Auto) 6.3, Lymphocytes # (Auto) 1.7, Monocytes # (Auto) 0.6, Eosinophils # (Auto) 0.3, Basophils # (Auto) 0.1, Nucleated Red Blood Cells % (auto) 0.0, Anion Gap 6L, Glomerular Filtration Rate > 60.0, Calcium Level 8.4L CBC/BMP Laboratory Tests 06/16/19 05:22 Microbiology Microbiology 06/14/19 Urine Culture - Final, Complete 06/14/19 Blood Culture - Preliminary, Resulted No growth after 24 hours . All specim... 06/14/19 Blood Culture - Preliminary, Resulted No growth after 24 hours . All specim... 06/10/19 Stool Occult Blood (CHERELLE) - Final, Complete 06/09/19 Urine Culture - Final, Complete Escherichia Coli 06/08/19 Blood Culture - Final, Complete NO GROWTH AFTER 5 DAYS 06/08/19 Blood Culture - Final, Complete NO GROWTH AFTER 5 DAYS Kavya Serrato Jun 16, 2019 10:40
[2019-06-16 12:00] VITALS: BP 114/65
[2019-06-16 16:00] VITALS: BP 125/67
[2019-06-16] MEDS ORDERED: FLEET ENEMA PR PRN (16:00)
[2019-06-16 16:09] LABS: ANTI DOUBLE STRAND-DNA AB 1 IU/mL (0-9); ANTINUCLEAR ANTIBODIES DIRECT Positive (Negative); RNP ANTIBODIES 5.8 AI (0.0-0.9); SJOGREN'S ANTI SS-A <0.2 AI (0.0-0.9); SJOGREN'S ANTI SS-B <0.2 AI (0.0-0.9); SMITH ANTIBODIES <0.2 AI (0.0-0.9)
[2019-06-16 20:00] VITALS: BP 133/80
[2019-06-16] MEDS: SODIUM CHLORIDE NASAL 0.65% SPRAY BTL (OCEAN) PRN (21:49)
[2019-06-17] VITALS: BP 125/70
[2019-06-17 04:00] VITALS: BP 127/70
[2019-06-17] MEDS: PIPERACILLIN/TAZOBACTAM SOD 3.375 GM in D5W MINI-BAG PLUS 50 ML IV SCH ×2 (04:56→09:15)
[2019-06-17 05:23] LABS: BASO % 0.5 % (0.0-1.0); EOS # 0.4 10^3/uL (0.0-0.5); EOS % 4.2 % (0.0-3.0); HEMATOCRIT 29.2 % (42.0-52.0); HEMOGLOBIN 9.5 g/dl (13.5-17.5); LYMPH # 1.7 10^3/uL (1.5-5.0); LYMPH % 19.4 % (24.0-44.0); MEAN CORPUSCULAR HEMOGLOBIN 30.9 pg (27.0-33.0); MEAN CORPUSCULAR HGB CONC 32.5 g/dl (32.0-36.5); MEAN CORPUSCULAR VOLUME 95.1 fl (80.0-96.0); MONO # 0.6 10^3/uL (0.0-0.8); MONO % 6.9 % (0.0-5.0); NEUTROPHILS # 5.9 10^3/uL (1.5-8.5); NEUTROPHILS % 68.2 % (36.0-66.0); PLATELET COUNT, AUTOMATED 387 10^3/uL (150-450); RED BLOOD COUNT 3.07 10^6/uL (4.30-6.10); WHITE BLOOD COUNT 8.6 10^3/uL (4.0-10.0)
[2019-06-17 05:40] LABS: BLOOD UREA NITROGEN 29 MG/DL (7-18); CALCIUM LEVEL 7.8 MG/DL (8.8-10.2); CARBON DIOXIDE LEVEL 26 MEQ/L (21-32); CHLORIDE LEVEL 109 MEQ/L (98-107); CREATININE FOR GFR 1.16 MG/DL (0.70-1.30); GLOMERULAR FILTRATION RATE > 60.0 (>42); GLUCOSE, FASTING 133 MG/DL (70-100); POTASSIUM SERUM 3.8 MEQ/L (3.5-5.1); SODIUM LEVEL 141 MEQ/L (136-145)
[2019-06-17] MEDS: SLF 3 ML SYR IV SCH ×3 (06:48→22:00)
[2019-06-17 08:00] VITALS: BP 114/72
--- NOTE | 2019-06-17 08:30 | REP ---
Two-view chest: 06/17/2019. Indication: Dyspnea. Comparison: 3 days earlier. Findings: Left lower lobe atelectasis and possible superimposed pneumonia are redemonstrated. There is no significant pleural effusion or pneumothorax. There is elevation of the left hemidiaphragm. Impression: Left lower lobe atelectasis and possible superimposed pneumonia are again demonstrated. Elevation of the left hemidiaphragm. Please correlate. Electronically Signed by Maury Lazar DO 06/17/2019 08:22 A
[2019-06-17] MEDS: SENOKOT S TAB PO SCH ×2 (09:15→20:01)
[2019-06-17] MEDS: MIRALAX *UNIT DOSE* 17GM PACKET PO SCH ×2 (09:15→20:00)
[2019-06-17] MEDS: TAMSULOSIN 0.4 MG CAP PO SCH (09:15)
[2019-06-17] MEDS: HumaLOG INSULIN (NovoLOG) PER UNIT SC SCH ×4 (09:16→20:01)
--- NOTE | 2019-06-17 10:37 | IPNPDOC ---
Subjective Date Seen The patient was seen on 06/17/19. Subjective Chief Complaint/HPI Pt this morning without new concerns. His is at his bedside. He states that his leg feels a little better every day. He slept alright last night. His breathing is a little better today as well. General: Denies: Fatigue Constitutional: Denies: Chills, Fever ENT: Denies: Head Aches Pulmonary: Reports: Dyspnea; Denies: Cough Cardiovascular: Denies: Chest Pain, Palpitations Gastrointestinal: Denies: Nausea, Vomiting, Abdominal Pain Musculoskeletal: Denies: Neck Pain Neurological: Reports: Weakness Psych: Reports: Mood Normal Objective Physical Examination General Exam: Positive: Alert, No Acute Distress ENT Exam: Positive: Mucous membr. moist/pink Neck Exam: Positive: Supple; Negative: Lymphadenopathy Chest Exam: Positive: Clear to auscultation, Diminished Heart Exam: Positive: Rate Normal, Regular Rhythm, Normal S1, Normal S2; Negative: Murmurs, Rubs Abdomen Exam: Positive: Normal bowel sounds, Soft, Other (the dressings over his port sites are c/d/i); Negative: Tenderness, Hernia Extremity Exam: Positive: Normal pulses, Tenderness, Swelling (the hematoma in his right thigh is again a little smaller. ); Negative: Edema Skin Exam: Positive: Other skin issue (There is some ecchymosis noted on his right posteriolateral thigh now. I believe that this is extravasation of blood from the hematoma over the last couple days.) Neuro Exam: Positive: Normal Speech Psych Exam: Positive: Mental status NL, Mood NL Assessment /Plan Problems (1) Pneumonia Status: Acute Response to Treatment: Improving Problem Text: day #3 Zosyn. afebrile. WBC 8.6 CXR this morning LLL atelectasis vs PN, enc deep breathing use of IS (2) Fever Status: Resolved Problem Text: 06/14 100.2 c bibasilar rales, WBC to 10.2-? postop aspiration, check BCX, CXR, BW (3) Left inguinal hernia Status: Chronic Problem Specific Plan: Consult Specialist Problem Text: 06/14 He had a robotic assisted L inguinal herniorraphy with Dr. Avitia and seemed to do well. (4) Acute blood loss anemia Status: Acute Response to Treatment: Stable, Improving Discussed With: Nurse, Patient, Family with Pt Consent Problem Specific Plan: Monitor Clinically, Repeat Labs Problem Text: 06/15/19: hgb stable at 9.9 06/14 Hgb stable this morning 10. 06/13 His hemoglobin dropped from 10.1 after the transfusion to 9.9 today. This is most likely physiologic fluctuation; I'm pleased that he doesn't seem to be bleeding anymore. He has received a total of 3 units of packed red blood cells this admission. (5) Urinary retention Status: Acute Response to Treatment: Stable Discussed With: Nurse, Surgical Manager, Patient, Family with Pt Consent Problem Specific Plan: Consult Specialist Problem Text: favor (as per eCW chart) baseline neurogenic bladder c probable low level retention-ho UTI 06/14 dced mijares for TOV, checking PVR qshift 06/13 He has had urinary retention for several days during this admission. This is a relatively new finding for him. I have not yet started him on an alpha jaiden, although that is not a terrible idea. They do have a number of interactions and side effects. I'd like to have the hernia repair completed to make sure medications are truly needed before starting medication. Right now his retention is controlled with a Mijares catheter. I'd like to see if he can do without the catheter tomorrow, now the hernia isn't putting pressure on the lower urinary tract. If he can't then I don't see an option but to replace the Mijares and start him on an alpha jaiden and a 5-NICOLAS. (6) Hematoma of leg Status: Acute Response to Treatment: Stable Problem Text: will hold all AC/AP agents until hematoma resolved and defer restarting to PCP Enc keeping leg elevated. Pt obtains relief from cold compress and will cont to use this. I counseled him on expectations for the hematoma and the ecchymosis that is likely to continue to develop an draining down into dependent areas of the next days and even weeks. Need to find the right balance between keeping him moving and exacerbating the hematoma. I discussed this with nursing. 06/09 elevated leg. monitor H/H> s/p ortho consult and compartment syndrome r/o. Advised conservative medical management. 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 He is starting to ask questions like, "Must I go back on anticoagulants after this admission?" Cont to hold anticoag at this time for the recent bleeding and anticipated surgery. 06/09 warfarin on hold due to hematoma. Received Protamine and Vitamin K 06/08/19 (8) Diabetes mellitus Status: Chronic Problem Text: His sugars were a better controlled today. We'll continue to monitor for now. (9) Transaminitis Status: Acute Problem Specific Plan: Monitor Clinically, Repeat Labs Problem Text: While his recent evaluation for his liver mass did not show life- threatening illness, he does have increasingly elevated liver enzymes while here. I am not entirely certain of the etiology, but we will monitor and pursue further evaluation if the trend continues. (10) Multiple sclerosis Status: Chronic Problem Text: Needs PT before returning home. (11) Liver mass Status: Chronic Problem Text: Path suggestive of Cirrhosis, chronic hepatitis. (12) Melena Status: Resolved Response to Treatment: Improving Discussed With: Nurse Problem Specific Plan: Monitor Clinically, Repeat Labs Problem Text: He's had no more bloody stools. Hopefully he has stopped bleeding entirely. Pt underwent EGD/colonoscopy 06/07 with gastric bx and removal of two polyps (tubular adenomas). Anticoags held due to hematoma. Plan/VTE VTE Prophylaxis Ordered?: No (SCD present on his left lower extremity only) VTE Exclusion Pharmacological: Other (hematoma) Plan Therapy: PT Anticipated Discharge: Sub Acute Rehab (vs. ARU per discussion today) VS, I&O, 24H, Fishbone Vital Signs/I&O Vital Signs Date Time Temp Pulse Resp B/P (MAP) Pulse Ox O2 Delivery O2 Flow Rate FiO2 06/17/19 08:00 98.4 94 18 114/72 (86) 95 Room Air 06/13/19 14:20 2 I&O- Last 24 Hours up to 6 AM 06/17/19 06:00 Intake Total 1000 ml Output Total 875 ml Balance 125 ml Laboratory Data 24H LABS Laboratory Tests 2 06/16/19 11:35: Bedside Glucose (Misc Panel) 305H 06/16/19 16:13: Bedside Glucose (Misc Panel) 94 06/16/19 21:22: Bedside Glucose (Misc Panel) 165H 06/17/19 04:43: Immature Granulocyte % (Auto) 0.8, Neutrophils (%) (Auto) 68.2H, Lymphocytes (%) (Auto) 19.4L, Monocytes (%) (Auto) 6.9H, Eosinophils (%) (Auto) 4.2H, Basophils (%) (Auto) 0.5, Neutrophils # (Auto) 5.9, Lymphocytes # (Auto) 1.7, Monocytes # (Auto) 0.6, Eosinophils # (Auto) 0.4, Basophils # (Auto) 0.0, Nucleated Red Blood Cells % (auto) 0.0, Anion Gap 6L, Glomerular Filtration Rate > 60.0, Calcium Level 7.8L CBC/BMP Laboratory Tests 06/17/19 04:43 Microbiology Microbiology 06/14/19 Urine Culture - Final, Complete 06/14/19 Blood Culture - Preliminary, Resulted No Growth after 48 hours. All Specime... 06/14/19 Blood Culture - Preliminary, Resulted No Growth after 48 hours. All Specime... 06/10/19 Stool Occult Blood (CHERELLE) - Final, Complete 06/09/19 Urine Culture - Final, Complete Escherichia Coli 06/08/19 Blood Culture - Final, Complete NO GROWTH AFTER 5 DAYS 06/08/19 Blood Culture - Final, Complete NO GROWTH AFTER 5 DAYS NESTOR HAAS PA-C Jun 17, 2019 10:37
[2019-06-17 11:58] VITALS: BP 126/62
[2019-06-17 16:00] VITALS: BP 120/84
[2019-06-17 20:00] VITALS: BP 144/78
[2019-06-17] MEDS: AUGMENTIN 875 MG TAB PO SCH (20:01)
[2019-06-18] VITALS: BP 138/76
[2019-06-18 04:00] VITALS: BP 127/77
[2019-06-18 05:55] LABS: BASO # 0.1 10^3/uL (0.0-0.2); BASO % 0.7 % (0.0-1.0); EOS # 0.3 10^3/uL (0.0-0.5); EOS % 3.5 % (0.0-3.0); HEMATOCRIT 31.7 % (42.0-52.0); HEMOGLOBIN 10.2 g/dl (13.5-17.5); LYMPH # 1.7 10^3/uL (1.5-5.0); LYMPH % 20.1 % (24.0-44.0); MEAN CORPUSCULAR HEMOGLOBIN 31.1 pg (27.0-33.0); MEAN CORPUSCULAR HGB CONC 32.2 g/dl (32.0-36.5); MEAN CORPUSCULAR VOLUME 96.6 fl (80.0-96.0); MONO # 0.7 10^3/uL (0.0-0.8); MONO % 7.7 % (0.0-5.0); NEUTROPHILS # 5.8 10^3/uL (1.5-8.5); NEUTROPHILS % 67.1 % (36.0-66.0); PLATELET COUNT, AUTOMATED 424 10^3/uL (150-450); RED BLOOD COUNT 3.28 10^6/uL (4.30-6.10); WHITE BLOOD COUNT 8.6 10^3/uL (4.0-10.0)
[2019-06-18] MEDS: SLF 3 ML SYR IV SCH ×3 (05:58→21:11)
[2019-06-18 06:15] LABS: BLOOD UREA NITROGEN 30 MG/DL (7-18); CALCIUM LEVEL 7.9 MG/DL (8.8-10.2); CARBON DIOXIDE LEVEL 24 MEQ/L (21-32); CHLORIDE LEVEL 108 MEQ/L (98-107); CREATININE FOR GFR 1.13 MG/DL (0.70-1.30); GLOMERULAR FILTRATION RATE > 60.0 (>42); GLUCOSE, FASTING 136 MG/DL (70-100); MAGNESIUM LEVEL 1.8 MG/DL (1.8-2.4); POTASSIUM SERUM 4.4 MEQ/L (3.5-5.1); SODIUM LEVEL 138 MEQ/L (136-145)
[2019-06-18 08:00] VITALS: BP 95/54
[2019-06-18] MEDS: HumaLOG INSULIN (NovoLOG) PER UNIT SC SCH ×4 (08:50→21:00)
[2019-06-18] MEDS: MIRALAX *UNIT DOSE* 17GM PACKET PO SCH ×2 (10:13→21:11)
[2019-06-18] MEDS: AUGMENTIN 875 MG TAB PO SCH ×2 (10:13→21:11)
[2019-06-18] MEDS: SENOKOT S TAB PO SCH ×2 (10:14→21:11)
[2019-06-18] MEDS: TAMSULOSIN 0.4 MG CAP PO SCH (10:14)
--- NOTE | 2019-06-18 11:15 | IPNPDOC ---
Subjective Date Seen The patient was seen on 06/18/19. Subjective Chief Complaint/HPI Feels well. no complaints Constitutional: Denies: Chills, Fever Pulmonary: Denies: Dyspnea, Cough Cardiovascular: Denies: Chest Pain, Palpitations Gastrointestinal: Denies: Nausea, Vomiting, Abdominal Pain, Diarrhea, Constipation Objective Physical Examination General Exam: Positive: Alert, No Acute Distress ENT Exam: Positive: Mucous membr. moist/pink Neck Exam: Positive: Supple; Negative: Lymphadenopathy Chest Exam: Positive: Clear to auscultation, Diminished Heart Exam: Positive: Rate Normal, Regular Rhythm, Normal S1, Normal S2; Negative: Murmurs, Rubs Abdomen Exam: Positive: Normal bowel sounds, Soft, Other (the dressings over his port sites are c/d/i); Negative: Tenderness, Hernia Extremity Exam: Positive: Edema (trace BL), Swelling (the hematoma in his right thigh is again a little smaller. ) Skin Exam: Positive: Other skin issue (There is some ecchymosis noted on his right posteriolateral thigh now. I believe that this is extravasation of blood from the hematoma over the last couple days.) Neuro Exam: Positive: Normal Speech Psych Exam: Positive: Mental status NL, Mood NL Assessment /Plan Problems (1) Urinary retention Status: Acute Response to Treatment: Stable Discussed With: Nurse, Envelope Sealer, Patient, Family with Pt Consent Problem Specific Plan: Consult Specialist Problem Text: 06/18 favor (as per eCW chart) baseline neurogenic bladder c probable low level retention-ho UTI Flomax started 06/16 - If no improvement on this, would d/c Flomax and plan outpatient f/u with Dr. Fofana (Urology) 06/14 dced mijares for TOV, checking PVR qshift 06/13 He has had urinary retention for several days during this admission. This is a relatively new finding for him. I have not yet started him on an alpha jaiden, although that is not a terrible idea. They do have a number of interactions and side effects. I'd like to have the hernia repair completed to make sure medications are truly needed before starting medication. Right now his retention is controlled with a Mijares catheter. I'd like to see if he can do without the catheter tomorrow, now the hernia isn't putting pressure on the lower urinary tract. If he can't then I don't see an option but to replace the Mijares and start him on an alpha jaiden and a 5-NICOLAS. (2) Pneumonia Status: Acute Response to Treatment: Improving Problem Text: Now on augmentin. s/p 4 days Zosyn. afebrile. WBC 8.6 CXR this morning LLL atelectasis vs PN, enc deep breathing use of IS (3) Fever Status: Resolved Problem Text: 06/14 100.2 c bibasilar rales, WBC to 10.2-? postop aspiration, check BCX, CXR, BW (4) Left inguinal hernia Status: Chronic Problem Specific Plan: Consult Specialist Problem Text: 06/14 He had a robotic assisted L inguinal herniorraphy with Dr. Avitia and seemed to do well. (5) Acute blood loss anemia Status: Acute Response to Treatment: Stable, Improving Discussed With: Nurse, Patient, Family with Pt Consent Problem Specific Plan: Monitor Clinically, Repeat Labs Problem Text: 06/18 - Hgb = 10.6 06/15/19: hgb stable at 9.9 06/14 Hgb stable this morning 10. / His hemoglobin dropped from 10.1 after the transfusion to 9.9 today. This is most likely physiologic fluctuation; I'm pleased that he doesn't seem to be bleeding anymore. He has received a total of 3 units of packed red blood cells this admission. (6) Hematoma of leg Status: Acute Response to Treatment: Stable Problem Text: will hold all AC/AP agents until hematoma resolved and defer restarting to PCP Enc keeping leg elevated. Pt obtains relief from cold compress and will cont to use this. I counseled him on expectations for the hematoma and the ecchymosis that is likely to continue to develop an draining down into dependent areas of the next days and even weeks. Need to find the right balance between keeping him moving and exacerbating the hematoma. I discussed this with nursing. 06/09 elevated leg. monitor H/H> s/p ortho consult and compartment syndrome r/o. Advised conservative medical management. 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 He is starting to ask questions like, "Must I go back on anticoagulants after this admission?" Cont to hold anticoag at this time for the recent bleeding and anticipated surgery. 06/09 warfarin on hold due to hematoma. Received Protamine and Vitamin K 06/08/19 (8) Diabetes mellitus Status: Chronic Problem Text: His sugars were a better controlled today. We'll continue to monitor for now. (9) Transaminitis Status: Acute Problem Specific Plan: Monitor Clinically, Repeat Labs Problem Text: While his recent evaluation for his liver mass did not show life- threatening illness, he does have increasingly elevated liver enzymes while here. I am not entirely certain of the etiology, but we will monitor and pursue further evaluation if the trend continues. (10) Multiple sclerosis Status: Chronic Problem Text: Needs PT before returning home. (11) Liver mass Status: Chronic Problem Text: Path suggestive of Cirrhosis, chronic hepatitis. (12) Melena Status: Resolved Response to Treatment: Improving Discussed With: Nurse Problem Specific Plan: Monitor Clinically, Repeat Labs Problem Text: He's had no more bloody stools. Hopefully he has stopped bleeding entirely. Pt underwent EGD/colonoscopy 06/07 with gastric bx and removal of two polyps (tubular adenomas). Anticoags held due to hematoma. Plan/VTE VTE Prophylaxis Ordered?: No (SCD present on his left lower extremity only) VTE Exclusion Pharmacological: Other (hematoma) Plan Therapy: PT Anticipated Discharge: Sub Acute Rehab (vs. ARU per discussion today) Disposition Plan to transfer to ARU Friday VS, I&O, 24H, Fishbone Vital Signs/I&O Vital Signs Date Time Temp Pulse Resp B/P (MAP) Pulse Ox O2 Delivery O2 Flow Rate FiO2 06/18/19 08:00 97.4 82 18 95/54 (68) 93 Room Air 06/13/19 14:20 2 I&O- Last 24 Hours up to 6 AM 06/18/19 06:00 Intake Total 1210 ml Output Total 3000 ml Balance -1790 ml Laboratory Data 24H LABS Laboratory Tests 2 06/17/19 12:12: Bedside Glucose (Misc Panel) 134H 06/17/19 17:46: Bedside Glucose (Misc Panel) 109 06/17/19 19:54: Bedside Glucose (Misc Panel) 188H 06/18/19 05:29: Immature Granulocyte % (Auto) 0.9, Neutrophils (%) (Auto) 67.1H, Lymphocytes (%) (Auto) 20.1L, Monocytes (%) (Auto) 7.7H, Eosinophils (%) (Auto) 3.5H, Basophils (%) (Auto) 0.7, Neutrophils # (Auto) 5.8, Lymphocytes # (Auto) 1.7, Monocytes # (Auto) 0.7, Eosinophils # (Auto) 0.3, Basophils # (Auto) 0.1, Nucleated Red Blood Cells % (auto) 0.0, Anion Gap 6L, Glomerular Filtration Rate > 60.0, Calcium Level 7.9L, Magnesium Level 1.8 CBC/BMP Laboratory Tests 06/18/19 05:29 Microbiology Microbiology 06/14/19 Urine Culture - Final, Complete 06/14/19 Blood Culture - Preliminary, Resulted No Growth after 72 hours. All specime... 06/14/19 Blood Culture - Preliminary, Resulted No Growth after 72 hours. All specime... 06/10/19 Stool Occult Blood (CHERELLE) - Final, Complete 06/09/19 Urine Culture - Final, Complete Escherichia Coli 06/08/19 Blood Culture - Final, Complete NO GROWTH AFTER 5 DAYS 06/08/19 Blood Culture - Final, Complete NO GROWTH AFTER 5 DAYS GEETA VLILA PA-C Jun 18, 2019 11:14
[2019-06-18 11:29] LABS: VITAMIN B12 LEVEL 445 PG/ML
[2019-06-18 11:30] LABS: FOLATE 6.4 NG/ML
[2019-06-18 12:00] VITALS: BP 122/75
[2019-06-18 16:00] VITALS: BP 165/90
[2019-06-18 20:00] VITALS: BP 142/83
[2019-06-19] VITALS: BP 133/74
[2019-06-19 04:00] VITALS: BP 116/72
[2019-06-19 05:02] LABS: BASO # 0.1 10^3/uL (0.0-0.2); BASO % 0.6 % (0.0-1.0); EOS # 0.3 10^3/uL (0.0-0.5); EOS % 3.5 % (0.0-3.0); HEMATOCRIT 30.9 % (42.0-52.0); HEMOGLOBIN 10.1 g/dl (13.5-17.5); LYMPH # 1.9 10^3/uL (1.5-5.0); LYMPH % 22.5 % (24.0-44.0); MEAN CORPUSCULAR HEMOGLOBIN 31.2 pg (27.0-33.0); MEAN CORPUSCULAR HGB CONC 32.7 g/dl (32.0-36.5); MEAN CORPUSCULAR VOLUME 95.4 fl (80.0-96.0); MONO # 0.6 10^3/uL (0.0-0.8); MONO % 7.6 % (0.0-5.0); NEUTROPHILS # 5.4 10^3/uL (1.5-8.5); PLATELET COUNT, AUTOMATED 415 10^3/uL (150-450); RED BLOOD COUNT 3.24 10^6/uL (4.30-6.10); WHITE BLOOD COUNT 8.3 10^3/uL (4.0-10.0)
[2019-06-19 05:34] LABS: BLOOD UREA NITROGEN 26 MG/DL (7-18); CALCIUM LEVEL 8.4 MG/DL (8.8-10.2); CARBON DIOXIDE LEVEL 25 MEQ/L (21-32); CHLORIDE LEVEL 108 MEQ/L (98-107); CREATININE FOR GFR 1.06 MG/DL (0.70-1.30); GLOMERULAR FILTRATION RATE > 60.0 (>42); GLUCOSE, FASTING 132 MG/DL (70-100); POTASSIUM SERUM 4.1 MEQ/L (3.5-5.1); SODIUM LEVEL 138 MEQ/L (136-145)
[2019-06-19] MEDS: SLF 3 ML SYR IV SCH ×3 (06:53→20:43)
[2019-06-19 07:44] VITALS: BP 132/80
[2019-06-19] MEDS: TAMSULOSIN 0.4 MG CAP PO SCH (08:19)
[2019-06-19] MEDS: AUGMENTIN 875 MG TAB PO SCH ×2 (08:19→20:43)
[2019-06-19] MEDS: HumaLOG INSULIN (NovoLOG) PER UNIT SC SCH ×4 (08:19→20:41)
[2019-06-19] MEDS: MIRALAX *UNIT DOSE* 17GM PACKET PO SCH ×2 (08:19→20:43)
[2019-06-19] MEDS: SENOKOT S TAB PO SCH ×2 (08:20→20:43)
[2019-06-19 11:49] VITALS: BP 132/74
[2019-06-19 16:00] VITALS: BP 139/78
--- NOTE | 2019-06-19 18:45 | IPNPDOC ---
Subjective Date Seen The patient was seen on 06/19/19. Subjective Chief Complaint/HPI He complains of persistent tenderness to his lateral R thigh, but mostly complains of constipation. Overall feels better than upon admission. at bedside. Constitutional: Denies: Chills, Fever Pulmonary: Reports: Cough; Denies: Dyspnea Cardiovascular: Denies: Chest Pain Gastrointestinal: Reports: Abdominal Pain, Constipation; Denies: Nausea, Vomiting, Diarrhea Neurological: Denies: Weakness Psych: Reports: Mood Normal Objective Physical Examination General Exam: Positive: Alert, No Acute Distress ENT Exam: Positive: Mucous membr. moist/pink Neck Exam: Positive: Supple; Negative: Lymphadenopathy Chest Exam: Positive: Clear to auscultation, Diminished Heart Exam: Positive: Rate Normal, Regular Rhythm, Normal S1, Normal S2; Negative: Murmurs, Rubs Abdomen Exam: Positive: Normal bowel sounds, Soft, Other (the dressings over his port sites are c/d/i); Negative: Tenderness, Hernia Extremity Exam: Positive: Edema (trace BL), Swelling Skin Exam: Positive: Other skin issue (There is some ecchymosis noted on his right posteriolateral thigh now. I believe that this is extravasation of blood from the hematoma over the last couple days.) Neuro Exam: Positive: Normal Speech Psych Exam: Positive: Mental status NL, Mood NL Assessment /Plan Problems (1) Urinary retention Status: Acute Response to Treatment: Stable Discussed With: Nurse, Pan Helper, Patient, Family with Pt Consent Problem Specific Plan: Consult Specialist Problem Text: 06/18 favor (as per eCW chart) baseline neurogenic bladder c probable low level retention-ho UTI Flomax started 06/16 - If no improvement on this, would d/c Flomax and plan outpatient f/u with Dr. Fofana (Urology) 06/14 dced mijares for TOV, checking PVR qshift 06/13 He has had urinary retention for several days during this admission. This is a relatively new finding for him. I have not yet started him on an alpha jaiden, although that is not a terrible idea. They do have a number of interactions and side effects. I'd like to have the hernia repair completed to make sure medications are truly needed before starting medication. Right now his retention is controlled with a Mijares catheter. I'd like to see if he can do without the catheter tomorrow, now the hernia isn't putting pressure on the lower urinary tract. If he can't then I don't see an option but to replace the Mijares and start him on an alpha jaiden and a 5-NICOLAS. (2) Pneumonia Status: Acute Response to Treatment: Improving Problem Text: Now on augmentin. s/p 4 days Zosyn. afebrile. WBC 8.6 CXR this morning LLL atelectasis vs PN, enc deep breathing use of IS (3) Fever Status: Resolved Problem Text: 06/14 100.2 c bibasilar rales, WBC to 10.2-? postop aspiration, check BCX, CXR, BW (4) Left inguinal hernia Status: Chronic Problem Specific Plan: Consult Specialist Problem Text: 06/14 He had a robotic assisted L inguinal herniorraphy with Dr. Avitia and seemed to do well. (5) Acute blood loss anemia Status: Acute Response to Treatment: Stable, Improving Discussed With: Nurse, Patient, Family with Pt Consent Problem Specific Plan: Monitor Clinically, Repeat Labs Problem Text: 06/18 - Hgb = 10.6 06/15/19: hgb stable at 9.9 06/14 Hgb stable this morning 10. / His hemoglobin dropped from 10.1 after the transfusion to 9.9 today. This is most likely physiologic fluctuation; I'm pleased that he doesn't seem to be bleeding anymore. He has received a total of 3 units of packed red blood cells this admission. (6) Hematoma of leg Status: Acute Response to Treatment: Stable Problem Text: will hold all AC/AP agents until hematoma resolved and defer restarting to PCP Enc keeping leg elevated. Pt obtains relief from cold compress and will cont to use this. I counseled him on expectations for the hematoma and the ecchymosis that is likely to continue to develop an draining down into dependent areas of the next days and even weeks. Need to find the right balance between keeping him moving and exacerbating the hematoma. I discussed this with nursing. 06/09 elevated leg. monitor H/H> s/p ortho consult and compartment syndrome r/o. Advised conservative medical management. 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 He is starting to ask questions like, "Must I go back on anticoagulants after this admission?" Cont to hold anticoag at this time for the recent bleeding and anticipated surgery. 06/09 warfarin on hold due to hematoma. Received Protamine and Vitamin K 06/08/19 (8) Diabetes mellitus Status: Chronic Problem Text: His sugars were a better controlled today. We'll continue to monitor for now. (9) Transaminitis Status: Acute Problem Specific Plan: Monitor Clinically, Repeat Labs Problem Text: While his recent evaluation for his liver mass did not show life- threatening illness, he does have increasingly elevated liver enzymes while here. I am not entirely certain of the etiology, but we will monitor and pursue further evaluation if the trend continues. (10) Multiple sclerosis Status: Chronic Problem Text: Needs PT before returning home. (11) Liver mass Status: Chronic Problem Text: Path suggestive of Cirrhosis, chronic hepatitis. (12) Melena Status: Resolved Response to Treatment: Improving Discussed With: Nurse Problem Specific Plan: Monitor Clinically, Repeat Labs Problem Text: He's had no more bloody stools. Hopefully he has stopped bleeding entirely. Pt underwent EGD/colonoscopy 06/07 with gastric bx and removal of two polyps (tubular adenomas). Anticoags held due to hematoma. (13) Constipation Problem Text: Nursing is serving him prune juice. He plans to take Sennokot, Miralax later today; discussed doing an enema as well. Will further adjust bowel care as needed tomorrow. Plan/VTE VTE Prophylaxis Ordered?: No (SCD present on his left lower extremity only) VTE Exclusion Pharmacological: Other (hematoma) Plan Therapy: PT Anticipated Discharge: Sub Acute Rehab (vs. ARU per discussion today) VS, I&O, 24H, Fishbone Vital Signs/I&O Vital Signs Date Time Temp Pulse Resp B/P (MAP) Pulse Ox O2 Delivery O2 Flow Rate FiO2 06/19/19 16:00 98.1 95 18 139/78 (98) 98 Room Air 06/13/19 14:20 2 I&O- Last 24 Hours up to 6 AM 06/19/19 06:00 Intake Total 480 ml Output Total 2290 ml Balance -1810 ml Laboratory Data 24H LABS Laboratory Tests 2 06/18/19 21:04: Bedside Glucose (Misc Panel) 173H 06/19/19 04:47: Immature Granulocyte % (Auto) 0.8, Neutrophils (%) (Auto) 65.0, Lymphocytes (%) (Auto) 22.5L, Monocytes (%) (Auto) 7.6H, Eosinophils (%) (Auto) 3.5H, Basophils (%) (Auto) 0.6, Neutrophils # (Auto) 5.4, Lymphocytes # (Auto) 1.9, Monocytes # (Auto) 0.6, Eosinophils # (Auto) 0.3, Basophils # (Auto) 0.1, Nucleated Red Blood Cells % (auto) 0.0, Anion Gap 5L, Glomerular Filtration Rate > 60.0, Calcium Level 8.4L 06/19/19 12:17: Bedside Glucose (Misc Panel) 167H 06/19/19 17:03: Bedside Glucose (Misc Panel) 129H CBC/BMP Laboratory Tests 06/19/19 04:47 Microbiology Microbiology 06/14/19 Urine Culture - Final, Complete 06/14/19 Blood Culture - Preliminary, Resulted No Growth after 72 hours. All specime... 06/14/19 Blood Culture - Preliminary, Resulted No Growth after 72 hours. All specime... 06/10/19 Stool Occult Blood (CHERELLE) - Final, Complete 06/09/19 Urine Culture - Final, Complete Escherichia Coli CLAUDIA REYNA DO Jun 19, 2019 18:45
[2019-06-19 20:00] VITALS: BP 143/82
[2019-06-20] VITALS: BP 123/78
[2019-06-20 04:00] VITALS: BP 135/75
[2019-06-20 05:18] LABS: BASO # 0.1 10^3/uL (0.0-0.2); BASO % 0.8 % (0.0-1.0); EOS # 0.4 10^3/uL (0.0-0.5); EOS % 4.8 % (0.0-3.0); HEMATOCRIT 33.1 % (42.0-52.0); HEMOGLOBIN 10.6 g/dl (13.5-17.5); LYMPH # 1.8 10^3/uL (1.5-5.0); LYMPH % 23.2 % (24.0-44.0); MEAN CORPUSCULAR HEMOGLOBIN 30.8 pg (27.0-33.0); MEAN CORPUSCULAR VOLUME 96.2 fl (80.0-96.0); MONO # 0.6 10^3/uL (0.0-0.8); NEUTROPHILS % 63.1 % (36.0-66.0); PLATELET COUNT, AUTOMATED 451 10^3/uL (150-450); RED BLOOD COUNT 3.44 10^6/uL (4.30-6.10); WHITE BLOOD COUNT 7.9 10^3/uL (4.0-10.0)
[2019-06-20 05:45] LABS: BLOOD UREA NITROGEN 29 MG/DL (7-18); CALCIUM LEVEL 8.4 MG/DL (8.8-10.2); CARBON DIOXIDE LEVEL 26 MEQ/L (21-32); CHLORIDE LEVEL 107 MEQ/L (98-107); CREATININE FOR GFR 1.14 MG/DL (0.70-1.30); GLOMERULAR FILTRATION RATE > 60.0 (>42); GLUCOSE, FASTING 125 MG/DL (70-100); POTASSIUM SERUM 4.2 MEQ/L (3.5-5.1); SODIUM LEVEL 137 MEQ/L (136-145)
[2019-06-20] MEDS: SLF 3 ML SYR IV SCH ×3 (06:00→20:06)
[2019-06-20 08:00] VITALS: BP 122/72
[2019-06-20] MEDS: HumaLOG INSULIN (NovoLOG) PER UNIT SC SCH ×4 (08:27→20:06)
[2019-06-20] MEDS: AUGMENTIN 875 MG TAB PO SCH ×2 (08:28→20:05)
[2019-06-20] MEDS: MIRALAX *UNIT DOSE* 17GM PACKET PO SCH ×2 (08:28→20:05)
[2019-06-20] MEDS: SENOKOT S TAB PO SCH ×2 (08:28→20:05)
[2019-06-20] MEDS: TAMSULOSIN 0.4 MG CAP PO SCH (08:28)
[2019-06-20 12:00] VITALS: BP 127/72
--- NOTE | 2019-06-20 14:59 | IPNPDOC ---
Subjective Date Seen The patient was seen on 06/20/19. Subjective Chief Complaint/HPI Doing well. He has moved his bowels multiple times and is much more comfortable. He notices some discomfort or weakness in his R leg, and looks f orward to rehab tomorrow. Constitutional: Denies: Chills, Fever Skin: Reports: Other (bruising left leg) Pulmonary: Denies: Dyspnea, Cough Cardiovascular: Denies: Chest Pain Gastrointestinal: Reports: Constipation (resolving); Denies: Nausea, Vomiting, Abdominal Pain, Diarrhea Musculoskeletal: Reports: Leg Pain Psych: Reports: Mood Normal Objective Physical Examination General Exam: Positive: Alert, No Acute Distress ENT Exam: Positive: Mucous membr. moist/pink Neck Exam: Positive: Supple; Negative: Lymphadenopathy Chest Exam: Positive: Clear to auscultation, Diminished Heart Exam: Positive: Rate Normal, Regular Rhythm, Normal S1, Normal S2; Negative: Murmurs, Rubs Abdomen Exam: Positive: Normal bowel sounds, Soft, Other (the dressings over his port sites are c/d/i); Negative: Tenderness, Hernia Extremity Exam: Positive: Edema (trace BL), Swelling Skin Exam: Positive: Other skin issue (There is some ecchymosis noted on his r ight posteriolateral thigh now. I believe that this is extravasation of blood from the hematoma over the last couple days.) Neuro Exam: Positive: Normal Speech Psych Exam: Positive: Mental status NL, Mood NL Assessment /Plan Problems (1) Urinary retention Status: Acute Response to Treatment: Stable Discussed With: Nurse, Foxing Painter, Patient, Family with Pt Consent Problem Specific Plan: Consult Specialist Problem Text: 06/20 -- patient has continued to have elevated postvoid residuals and numerous straight catheterizations. Mijares replaced, and Flomax stopped, plan to see urology as an outpatient. 06/18 favor (as per eCW chart) baseline neurogenic bladder c probable low level retention-ho UTI Flomax started 06/16 - If no improvement on this, would d/c Flomax and plan outpatient f/u with Dr. Fofana (Urology) 06/14 dced mijares for TOV, checking PVR qshift 06/13 He has had urinary retention for several days during this admission. This is a relatively new finding for him. I have not yet started him on an alpha jaiden, although that is not a terrible idea. They do have a number of in teractions and side effects. I'd like to have the hernia repair completed to make sure medications are truly needed before starting medication. Right now his retention is controlled with a Mijares catheter. I'd like to see if he can do without the catheter tomorrow, now the hernia isn't putting pressure on the lower urinary tract. If he can't then I don't see an option but to replace the Mijares and start him on an alpha jaiden and a 5-NICOLAS. (2) Pneumonia Status: Acute Response to Treatment: Improving Problem Text: 06/20 -- Was on Zosyn 06/14 - 06/17, then Augmentin beginning 06/17 - today. This is the 7th day of abx. Now on augmentin. s/p 4 days Zosyn. afebrile. WBC 8.6 CXR this morning LLL atelectasis vs PN, enc deep breathing use of IS (3) Fever Status: Resolved Problem Text: 06/14 100.2 c bibasilar rales, WBC to 10.2-? postop aspiration, check BCX, CXR, BW (4) Left inguinal hernia Status: Chronic Problem Specific Plan: Consult Specialist Problem Text: 06/14 He had a robotic assisted L inguinal herniorraphy with Dr. Avitia and seemed to do well. (5) Acute blood loss anemia Status: Acute Response to Treatment: Stable, Improving Discussed With: Nurse, Patient, Family with Pt Consent Problem Specific Plan: Monitor Clinically, Repeat Labs Problem Text: 06/18 - Hgb = 10.6 06/15/19: hgb stable at 9.9 06/14 Hgb stable this morning 10. / His hemoglobin dropped from 10.1 after the transfusion to 9.9 today. This is most likely physiologic fluctuation; I'm pleased that he doesn't seem to be bleeding anymore. He has received a total of 3 units of packed red blood cells this admission. (6) Hematoma of leg Status: Acute Response to Treatment: Stable Problem Text: will hold all AC/AP agents until hematoma resolved and defer restarting to PCP Enc keeping leg elevated. Pt obtains relief from cold compress and will cont to use this. I counseled him on expectations for the hematoma and the ecchymosis that is likely to continue to develop an draining down into dependent areas of the next days and even weeks. Need to find the right balance between keeping him moving and exacerbating the hematoma. I discussed this with nursing. 06/09 elevated leg. monitor H/H> s/p ortho consult and compartment syndrome r/o. Advised conservative medical management. 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 He is starting to ask questions like, "Must I go back on anticoagulants after this admission?" Cont to hold anticoag at this time for the recent bleeding and anticipated surgery. 06/09 warfarin on hold due to hematoma. Received Protamine and Vitamin K 06/08/19 (8) Diabetes mellitus Status: Chronic Problem Text: His sugars were a better controlled today. We'll continue to monitor for now. (9) Constipation Problem Text: Nursing is serving him prune juice. He plans to take Sennokot, Miralax later today; discussed doing an enema as well. Will further adjust bowel care as needed tomorrow. (10) Transaminitis Status: Acute Problem Specific Plan: Monitor Clinically, Repeat Labs Problem Text: While his recent evaluation for his liver mass did not show life- threatening illness, he does have increasingly elevated liver enzymes while here. I am not entirely certain of the etiology, but we will monitor and pursue further evaluation if the trend continues. (11) Multiple sclerosis Status: Chronic Problem Text: Needs PT before returning home. (12) Liver mass Status: Chronic Problem Text: Path suggestive of Cirrhosis, chronic hepatitis. (13) Melena Status: Resolved Response to Treatment: Improving Discussed With: Nurse Problem Specific Plan: Monitor Clinically, Repeat Labs Problem Text: He's had no more bloody stools. Hopefully he has stopped bleeding entirely. Pt underwent EGD/colonoscopy 06/07 with gastric bx and removal of two polyps (tubular adenomas). Anticoags held due to hematoma. Plan/VTE VTE Prophylaxis Ordered?: No (SCD present on his left lower extremity only) VTE Exclusion Pharmacological: Other (hematoma) Plan Therapy: PT Anticipated Discharge: Sub Acute Rehab (vs. ARU per discussion today) VS, I&O, 24H, Fishbone Vital Signs/I&O Vital Signs Date Time Temp Pulse Resp B/P (MAP) Pulse Ox O2 Delivery O2 Flow Rate FiO2 06/20/19 12:00 97.3 91 100 127/72 (90) 100 Room Air I&O- Last 24 Hours up to 6 AM 06/20/19 06:00 Intake Total 1200 ml Output Total 5100 ml Balance -3900 ml Laboratory Data 24H LABS Laboratory Tests 2 06/19/19 17:03: Bedside Glucose (Misc Panel) 129H 06/19/19 20:36: Bedside Glucose (Misc Panel) 135H 06/20/19 05:01: Immature Granulocyte % (Auto) 1.1, Neutrophils (%) (Auto) 63.1, Lymphocytes (%) (Auto) 23.2L, Monocytes (%) (Auto) 7.0H, Eosinophils (%) (Auto) 4.8H, Basophils (%) (Auto) 0.8, Neutrophils # (Auto) 5.0, Lymphocytes # (Auto) 1.8, Monocytes # (Auto) 0.6, Eosinophils # (Auto) 0.4, Basophils # (Auto) 0.1, Nucleated Red Blood Cells % (auto) 0.0, Anion Gap 4L, Glomerular Filtration Rate > 60.0, Calcium Level 8.4L 06/20/19 11:45: Bedside Glucose (Misc Panel) 114H CBC/BMP Laboratory Tests 06/20/19 05:01 Microbiology Microbiology 06/14/19 Urine Culture - Final, Complete 06/14/19 Blood Culture - Final, Complete NO GROWTH AFTER 5 DAYS 06/14/19 Blood Culture - Final, Complete NO GROWTH AFTER 5 DAYS 06/10/19 Stool Occult Blood (CHERELLE) - Final, Complete CLAUDIA REYNA DO Jun 20, 2019 14:59
[2019-06-20] MEDS: ACETAMINOPHEN TAB 650MG DOSE (2X325MG) PO PRN (21:46)
[2019-06-21] VITALS: BP 125/68
[2019-06-21 05:47] LABS: BASO # 0.1 10^3/uL (0.0-0.2); BASO % 0.8 % (0.0-1.0); EOS # 0.3 10^3/uL (0.0-0.5); HEMATOCRIT 33.3 % (42.0-52.0); HEMOGLOBIN 10.7 g/dl (13.5-17.5); LYMPH # 1.8 10^3/uL (1.5-5.0); LYMPH % 24.8 % (24.0-44.0); MEAN CORPUSCULAR HEMOGLOBIN 30.8 pg (27.0-33.0); MEAN CORPUSCULAR HGB CONC 32.1 g/dl (32.0-36.5); MONO # 0.6 10^3/uL (0.0-0.8); MONO % 7.7 % (0.0-5.0); NEUTROPHILS # 4.5 10^3/uL (1.5-8.5); NEUTROPHILS % 61.7 % (36.0-66.0); PLATELET COUNT, AUTOMATED 486 10^3/uL (150-450); RED BLOOD COUNT 3.47 10^6/uL (4.30-6.10); WHITE BLOOD COUNT 7.3 10^3/uL (4.0-10.0)
[2019-06-21 05:59] LABS: BLOOD UREA NITROGEN 30 MG/DL (7-18); CALCIUM LEVEL 8.5 MG/DL (8.8-10.2); CARBON DIOXIDE LEVEL 24 MEQ/L (21-32); CHLORIDE LEVEL 109 MEQ/L (98-107); CREATININE FOR GFR 1.15 MG/DL (0.70-1.30); GLOMERULAR FILTRATION RATE > 60.0 (>42); GLUCOSE, FASTING 120 MG/DL (70-100); POTASSIUM SERUM 4.4 MEQ/L (3.5-5.1); SODIUM LEVEL 139 MEQ/L (136-145)
[2019-06-21] MEDS: SLF 3 ML SYR IV SCH (06:37)
[2019-06-21 07:25] VITALS: BP 129/72
[2019-06-21] MEDS ORDERED: Sodium Chloride Nasal Spray (08:13)
[2019-06-21] MEDS ORDERED: ACET1TAB55 PO (08:13)
[2019-06-21] MEDS ORDERED: AMOX875T2 PO (08:13)
[2019-06-21] MEDS ORDERED: FLEEENE12 PR (08:13)
[2019-06-21] MEDS ORDERED: SENN-52 PO (08:13)
[2019-06-21] MEDS: HumaLOG INSULIN (NovoLOG) PER UNIT SC SCH (09:27)
[2019-06-21] MEDS: SENOKOT S TAB PO SCH (09:28)
[2019-06-21] MEDS: AUGMENTIN 875 MG TAB PO SCH (09:28)
[2019-06-21] MEDS: MIRALAX *UNIT DOSE* 17GM PACKET PO SCH (09:28)
--- NOTE | 2019-06-21 12:02 | DSES ---
DATE OF ADMISSION: 06/08/2019 DATE OF DISCHARGE: 06/21/2019 ATTENDING PHYSICIAN: Dr. Ning Grewal PRIMARY CARE PHYSICIAN: Dr. Clayton Carrero HISTORY OF PRESENT ILLNESS: This is a 74-year-old male who presented to [facility] emergency department (ED) for complaints of significant right thigh pain and swelling to the point that patient was unable to ambulate. The patient had been receiving a Lovenox bridge secondary to prior history of arterial thrombus in preparation for a colonoscopy and esophagogastroduodenoscopy (EGD). His colonoscopy was completed and two days later patient developed severe pain in the right thigh. The patient was noted to have a right intramuscular hematoma and was subsequently admitted to family medicine service. HOSPITAL COURSE: The patient is status post orthopedic consultation with Dr. Ambrocio Maurer. It was recommended conservative management and no specific surgical intervention warranted at that time. Patient did receive a total of 3 units of packed red cells secondary to anemia and acute blood loss. Patient had some difficulty with urinary retention. It was unclear if this was secondary to enlargement of the prostate or neurogenic bladder. Patient was placed on Flomax and we are awaiting and monitoring the patient's symptoms with Flomax. If he continues to have significant symptoms of urinary retention, he should seek urology consultation. Patient did have significant amounts of intermittent catheterization and it was determined that we would continue with a Urban catheter for now due to the repeated trauma with the catheterization. Patient is status post consultation with Dr. Jeff Avitia for an incarcerated left inguinal hernia. He is status post robotic incarcerated left inguinal hernia repair on 06/13/2019. Postoperatively, patient has continued to improve. Patient's electrolytes have remained stable. Patient's hemoglobin has remained stable. Patient has needed some bowel medications to assist with constipation and this has been beneficial. Patient developed left lower lobe pneumonia, for which he was placed on antibiotic therapy. He also was noted to have Escherichia (E) coli in his urine, for which he has been placed on Augmentin 875 mg by mouth twice a day and should receive a full 10 day course of his Augmentin, which should also assist with his pneumonia. Imaging completed during hospitalization includes vascular ultrasound which ruled out deep venous thrombosis (DVT), CT angiography on 06/08/2019 of the abdominal arteries which proved positive for moderate to significant generalized atherosclerotic disease including thrombosed left popliteal artery aneurysm, right lower extremity atherosclerotic disease, large complex intramuscular fluid collection along the lateral aspect of the right thigh representing hematoma. Multiple chest x-rays have been completed, most recent 06/17/2019. CONSULTATIONS: Dr. Jeff Avitia, General Surgery. Dr. Ambrocio Maurer, Orthopedic Surgery. PROCEDURES: Robotic assisted left inguinal hernia repair. On physical exam today, vital signs are stable. He is afebrile. HEENT: Neck is supple without lymphadenopathy or jugular venous distention (JVD). Cardiovascular: Heart regular rhythm irregular. Pulmonary: Lungs are clear to auscultation bilaterally. Abdomen is soft and nontender. Bilateral lower extremities without any edema. DISCHARGE DIAGNOSES: 1. Right thigh hematoma secondary to anticoagulation. 2. Urinary tract infection (UTI) secondary to E coli. 3. Left lower lobe pneumonia. 4. Urinary retention. 5. Left inguinal hernia. 6. Acute blood loss anemia. 7. 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 8. Diabetes. 9. Constipation. 10. Transaminitis with cirrhosis of liver confirmed by biopsy. 11. Multiple sclerosis. PLAN: Patient will be transitioned to acute rehab unit at [facility] today. He is in agreement with plan. Diet is as tolerated. Activity is per physical therapy (PT) recommendations. Medications are as follows: - acetaminophen 325 two by mouth every 6 hours as needed for pain - Augmentin 875 one by mouth twice a day - Senna tablets 2 tabs by mouth twice a day - saline nasal spray every 2 hours as needed for nasal dryness - Fleet enema every 12 hours as needed for constipation - alpha lipoic acid 200 mg by mouth twice a day - ammonium lactate one dose topically as needed, dry skin - vitamin C 500 by mouth daily - baclofen 10 mg by mouth every 8 hours - calcium carbonate 500 mg by mouth daily - vitamin D3 1000 international units two by mouth nightly - metformin 1000 mg by mouth every evening Medications that were stopped during this hospitalization includes enoxaparin, metoprolol, and warfarin. We will continue to monitor patient's status while he is inpatient in acute rehabilitation unit (ARU). Patient is discharged in stable and satisfactory condition with no further questions at the time of discharge. Edited: fidelia 06/22/2019 1428 MTDD
[2019-06-21] MEDS ORDERED: SM N0.65 (15:23)
== END 2019-06-21 12:26 | DRG 981 ==
LOC: EDBD 07:11 → M ED 07:11 → M ED INP 14:12 → M PCU 15:55
PROVIDERS: ADMIT Internal Medicine; ATTEND Family Medicine
PROC: 30233N1 Transfusion of Nonautologous Red Blood Cells into Peripheral Vein, Percutaneous Approach (ICD-10-PCS; 2019-06-09)
PROC: 0YU64JZ Supplement Left Inguinal Region with Synthetic Substitute, Percutaneous Endoscopic Approach (ICD-10-PCS; principal; 2019-06-14)
PROC: 8E0W4CZ Robotic Assisted Procedure of Trunk Region, Percutaneous Endoscopic Approach (ICD-10-PCS; 2019-06-14)
DX: D68.32 Hemorrhagic disorder due to extrinsic circulating anticoagulants (principal); J18.9 Pneumonia, unspecified organism; I74.3 Embolism and thrombosis of arteries of the lower extremities; K92.1 Melena; D62 Acute posthemorrhagic anemia; N39.0 Urinary tract infection, site not specified; T45.515A Adverse effect of anticoagulants, initial encounter; G35 Multiple sclerosis; E11.9 Type 2 diabetes mellitus without complications; I10 Essential (primary) hypertension; Z87.891 Personal history of nicotine dependence; Z79.84 Long term (current) use of oral hypoglycemic drugs; Z79.01 Long term (current) use of anticoagulants; Z79.899 Other long term (current) drug therapy; Z88.8 Allergy status to other drugs, medicaments and biological substances; K40.90 Unilateral inguinal hernia, without obstruction or gangrene, not specified as recurrent; R33.9 Retention of urine, unspecified; R74.0 Nonspecific elevation of levels of transaminase and lactic acid dehydrogenase [LDH]; K76.89 Other specified diseases of liver; R50.82 Postprocedural fever; K59.00 Constipation, unspecified; N31.9 Neuromuscular dysfunction of bladder, unspecified; N40.0 Benign prostatic hyperplasia without lower urinary tract symptoms; B96.20 Unspecified Escherichia coli [E. coli] as the cause of diseases classified elsewhere; K74.60 Unspecified cirrhosis of liver

== ENCOUNTER 2019-06-21 11:21 | Inpatient (IN) | payer MEDICARE ==
[~2019-06-21] VITALS: Ht 175.3 cm; Wt 78.9 kg
[~2019-06-21 11:21] MED LIST changes: +ACET1TAB55 PO; +AMOX875T2 PO; +BACL1TAB8 PO; +ENOX80IN3 SC; +FLEEENE12 PR; +SENN-52 PO; +Sodium Chloride Nasal Spray
[2019-06-21 12:40] VITALS: BP 130/70
[2019-06-21 14:00] VITALS: BP 132/70
[2019-06-21] MEDS ORDERED: SM N0.65 (15:23)
--- NOTE | 2019-06-21 15:49 | HPEPDOC ---
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 He was evaluated by orthopedics for concern for compartment syndrome, but no surgical intervention was deemed necessary. CTA of his LE showed, Moderate to significant generalized atherosclerotic disease including thrombosed left popliteal artery aneurysm with suspected complete occlusion to the distal left lower extremity. Right lower extremity atherosclerotic disease with single vessel runoff suggested from the mid calf to the ankle..Large complex intramuscular fluid collection along the lateral aspect of theright thigh as detailed above most likely representing hematomaLarge left inguinal hernia containing fat and nonobstructed colonPatient was noted to have significant urinary retention and underwent a robotic assisted inguinal hernia repair on 06-13-19 with mijares placement. He was then found to have a left lower lobe pneumonia and E.coli UTI so was started on Augmentin. He also had episodes of melena and required 3 units of prbcs. He was evaluated by therapy, found to have deficits in mobility and ADLs below his prior level of function and deemed medically appropriate for discharge. REVIEW OF SYSTEMS: The following is a completed review of systems and has been reviewed. Review of systems otherwise unremarkable. PAIN: Patient self reports no pain EYES: No recent vision changes EARS, NOSE, & THROAT: No throat pain, or dysphagia, or rhinorrhea CARDIOVASCULAR: Denies chest pain or palpitations PULMONARY: Denies shortness of breath GASTROINTESTINAL: Denies constipation/diarrhea GENITOURINARY: retention with intermittent hematuria MUSCULOSKELETAL: LE weakness, R>L NEUROLOGICAL:+MS HEMATOLOGICAL:+hematuria (intermittent), melena (intermittent), thigh hematoma SKIN: no rash PSYCHIATRIC: Unremarkable All other review of systems found to be negative. PAST MEDICAL HISTORY: as per HPI PAST SURGICAL HISTORY: TURP, EGD/colonoscopy Liver biopsy positive for cirrhosis ALLERGIES: Please see below. MEDICATIONS: Please see below. SOCIAL HISTORY:Former smoker, no etoh or illicit drugs DIET: consistent carb PHYSICAL EXAMINATION: VITAL SIGNS: Please see below. GENERAL: Pleasant and cooperative. No acute distress. HEENT: PERRL. Extraocular movements intact. Clear conjunctiva CARDIOVASCULAR: Regular rate and rhythm. No murmurs, rubs, or gallops LUNGS: Clear to auscultation bilaterally. No wheezes. No rhonchi ABDOMEN: Soft, nontender, nondistended. Positive bowel sounds. Normal active bowel sounds NEUROLOGICAL: Alert and oriented times three. Cranial nerves II through XII grossly intact. Sensation grossly intact to light touch all 4 extremities 3+ patellar reflexes (-) Hoffmans bilat (-) Clonus EXTREMITIES: 5\\5 strength bilateral upper extremities. 3/5 right hip flexors, knee extensors, 3/5 ankle DF and 3+/5 EHL, 4/5 plantar flexion left hip flexors 3+/5, 4/5 knee extension/ankle DF/EHL and plantar flexion mild atrophy RLE when compared to LLE pedal pulses intact SKIN: hyperpigmented lower calves and feet, thigh hematoma, right anterior thigh ecchymosis LABORATORY DATA: Please see below. IMAGING:Imaging documentation personally reviewed by record FUNCTIONAL STATUS: Premorbid: Modified Independent with all activities of daily life as well as mobility with AFO and RW. On Admission: Moderate assistance for bathing, upper body dressing, bed chair and wheelchair transfers, toilet transfers, ambulation x 2 feet GOALS: Modified Independent with all activities of daily life as well as mobility with bilat AFO and RW community distances, medical optimization, assess for DMEs. ASSESSMENT:74-year-old M with past medical history of MS and Afib who presents hematoma of his right thigh s/p inguinal hernia repair with pneumonia and UTI. PLAN: 1. Rehab: PT- advance gait, strengthen bilat LE, work on endurance and balance training- avoid lifting >10 pounds OT- advance ADL management, especially transfers to commode at night to optimize self urinary care 2. [facility]: [facility] 3. cardio: pmh HTN, c/u Cozaar at 25mg daily, monitor for JODI Afib- currently off AC due to recent hematoma and melena, medicine consulted to assist in management 4. resp: diagnosed with LLL PNA c/u amoxicillin, Duonebs, and Guaifenesin -encourage incentive spirometry 5. GI: patient with liver lesion s/p biopsy- pathology negative for malignancy, positive for cirrhosis -(+) FOBT with intermittent melena with 2 polyps removed on recent colonoscopy, off AC, monitor 6. DVT ppx: TEDs, Coumadin on hold due to thigh hematoma and recent melena -thrombosed left popliteal artery aneurysm with suspected complete occlusion to the distal left lower extremity- will consider vascular consult 7. Endo: hx DM c/u metformin and ISS 8. : c/u Augmentin for E. Coli UTI- patient with recurrent UTIs, will discuss possibility of prophylaxis with ID -hx of BPH s/p TURP with retention, s/p inguinal hernia repair and partial resolution of constipation which may have been contributing to retention, however will c/u Flomax and do TOV tomorrow 9. Heme: monitor Hgb in setting of hx of hematuria and melena, transfuse if <8 Off AC 10. Renal: hx of JODI, monitor while on Losartan 11. Dispo: TBD POST ADMISSION PHYSICIAN EVALUATION: Medical and functional status: Description of medical status, medical assessment: As above. Rehabilitation diagnosis and current and prior cold morbid medical conditions as above. Risk of complications and plans to mitigate them as above. Description of functional status current status is as above. Prior status as above. Status compared to preadmission: There are no clinically significant differences between the patient's current status and the information described on the preadmission screening document. Treatment plan anticipated: Treatment plan is as described above. Required disciplines including physical therapy, occupational therapy, others as noted above Intensity of services: 3 hours a day, 6 days a week. Special considerations: There are no specific special or safety considerations that would likely preclude immediate implementation of an intensive rehabilitation program or subsequently influence the plan of care ATTESTATION: Considering all the information above, it is my best judgment that this patient requires intensive rehabilitation therapy as described above and an inpatient hospital environment due to the complexity of nursing, medical, and rehabilitation needs required by the patient. Furthermore, this patient can reasonably be expected to participate in an benefit from an inpatient rehabilitation stay with an interdisciplinary team approach to the delivery of rehabilitation care under the direction and supervision of rehabilitation physician PROGNOSIS: Excellent ESTIMATED LENGTH OF STAY:12-14 days. PROJECTED DISCHARGE DESTINATION: Home with family support and any durable medical equipment required to increase functional safety and mobility TIME SPENT COUNSELING AND COORDINATING INITIAL CARE: Greater than 70 minutes. Vital Signs Vital Sign - Last 24 Hours 06/21/19 06/21/19 12:40 14:00 Temp 97.5 97.6 Pulse 89 90 Resp 16 20 B/P (MAP) 130/70 (90) 132/70 (90) Pulse Ox 97 98 O2 Delivery Room Air Room Air Home Medications Scheduled Alpha Lipoic Acid (Alpha Lipoic Acid) 200 Mg Tab, 200 MG PO BID, (Reported) Amoxicillin/Potassium Clav (Amox-Clav 875-125 mg Tablet) 1 Each Tablet, 875 MG PO BID should take a full 10 days until 06/27/19 Ascorbic Acid (Vitamin C) 500 Mg Cap, 500 MG PO DAILY, (Reported) Baclofen (Baclofen) 10 Mg Tablet, 5 MG PO Q8H, (Reported) Calcium Carbonate (Calcium) 500 Mg Tablet, 500 MG PO DAILY, (Reported) Cholecalciferol (Vitamin D3) (Vitamin D3) 1,000 Unit Capsule, 2,000 UNIT PO QHS, (Reported) Metformin HCl (Metformin ER Osmotic) 1,000 Mg Tab, 1,000 MG PO QPM, (Reported) Sennosides/Docusate Sodium (Senna Plus Tablet) 1 Each Tablet, 2 TAB PO BID Scheduled PRN Acetaminophen (Acetaminophen) 325 Mg Tablet, 650 MG PO Q6HP PRN for PAIN / FEVER Ammonium Lactate (Ammonium Lactate) 12% Lotion, 1 DOSE TOP DAILY PRN for DRY SKIN, (Reported) APPLIES TO AREAS OF DRY SKIN Sodium Chloride (Saline Nasal [place]) 44 Ml [place], 2 SPRAY NA Q2H PRN for NASAL DRYNESS, (Reported) Sodium Phosphate,[place]-Dibasic (Fleet Enema) 133 Ml Enema, 1 EA ME Q12HP PRN for CONSTIPATION Allergies Coded Allergies: gabapentin (Verified Adverse Reaction, Intermediate, elevates MS symptoms, 06/08/19) modafinil (Verified Adverse Reaction, Intermediate, elevate MS symptoms, 06/08/19) omeprazole (Verified Adverse Reaction, Intermediate, elevated MS symptoms, 06/08/19) Xxxudma-Nye-Eew Reductase Inhibitor (Verified Adverse Reaction, Mild, "PASSES OUT", 06/08/19) glatiramer (copolymer 1) (Verified Adverse Reaction, Mild, weakness, 06/08/19) A-FIB/CHADSVASC A-FIB History Current/History of A-Fib/PAF?: Yes Current PO Anticoag Therapy: No KRISTINA CADENA MD Jun 21, 2019 15:49
[2019-06-21] MEDS ORDERED: GLUCAGON FOR INJ 1 MG VIAL (J1610) SC PRN (16:00)
[2019-06-21] MEDS ORDERED: CALCIUM CARBONATE 500 MG CHEW U/D PO PRN (16:00)
[2019-06-21] MEDS ORDERED: GLUCOSE 4 GM CHEW TABLET PO PRN (16:00)
[2019-06-21] MEDS ORDERED: DEXTROSE 50% 50 ML SYRINGE IV PRN (16:00)
[2019-06-21] MEDS: LACTOBACILLUS ACIDOPHILUS CAP (BACID) PO SCH ×2 (16:17→20:59)
[2019-06-21] MEDS: ASCORBIC ACID 500 MG TAB PO SCH (16:17)
[2019-06-21] MEDS: BACLOFEN 5MG PER 1/2 TABLET PO SCH ×2 (16:17→20:59)
[2019-06-21] MEDS: guaiFENesin 200 MG TAB PO SCH ×2 (16:17→21:00)
[2019-06-21] MEDS: metFORMIN (GLUCOPHAGE) 1000 MG TABLET PO SCH (18:12)
[2019-06-21] MEDS: SODIUM CHLORIDE NASAL 0.65% SPRAY BTL (OCEAN) SCH ×2 (18:12→21:01)
[2019-06-21] MEDS: HumaLOG INSULIN (NovoLOG) PER UNIT SC SCH ×2 (18:12→21:00)
[2019-06-21 20:00] VITALS: BP 150/83
[2019-06-21] MEDS: IPRATROPIUM 0.5MG/ALBUTEROL 2.5MG INH SOL UD 3ML (DUONEB)(J7620) NEB SCH (20:00)
[2019-06-21] MEDS: TAMSULOSIN 0.4 MG CAP PO SCH (20:59)
[2019-06-21] MEDS: FLUTICASONE PROP 0.05% NASAL SPRAY 16 GM (FLONASE) NARES SCH (20:59)
[2019-06-21] MEDS: AMOXICILLIN 875 MG TAB PO SCH (20:59)
[2019-06-21] MEDS: VITAMIN D 1,000 INTERNATIONAL UNITS TABLET PO SCH (21:00)
[2019-06-21] MEDS: SENOKOT S TAB PO SCH (21:00)
[2019-06-22] MEDS: ACETAMINOPHEN TAB 650MG DOSE (2X325MG) PO PRN ×2 (01:28→16:09)
[2019-06-22 05:50] VITALS: BP 130/71
[2019-06-22 06:07] LABS: BASO # 0.1 10^3/uL (0.0-0.2); BASO % 0.7 % (0.0-1.0); EOS # 0.2 10^3/uL (0.0-0.5); EOS % 3.3 % (0.0-3.0); HEMATOCRIT 34.5 % (42.0-52.0); HEMOGLOBIN 10.7 g/dl (13.5-17.5); LYMPH # 1.9 10^3/uL (1.5-5.0); LYMPH % 27.5 % (24.0-44.0); MEAN CORPUSCULAR HEMOGLOBIN 30.3 pg (27.0-33.0); MEAN CORPUSCULAR VOLUME 97.7 fl (80.0-96.0); MONO # 0.4 10^3/uL (0.0-0.8); NEUTROPHILS # 4.3 10^3/uL (1.5-8.5); NEUTROPHILS % 61.5 % (36.0-66.0); PLATELET COUNT, AUTOMATED 472 10^3/uL (150-450); RED BLOOD COUNT 3.53 10^6/uL (4.30-6.10)
[2019-06-22 06:33] LABS: ALBUMIN 2.4 GM/DL (3.2-5.2); ALT/SGPT 84 U/L (12-78); BILIRUBIN,TOTAL 0.8 MG/DL (0.2-1.0); BLOOD UREA NITROGEN 27 MG/DL (7-18); CALCIUM LEVEL 8.7 MG/DL (8.8-10.2); CARBON DIOXIDE LEVEL 24 MEQ/L (21-32); CHLORIDE LEVEL 107 MEQ/L (98-107); CREATININE FOR GFR 1.16 MG/DL (0.70-1.30); GLOMERULAR FILTRATION RATE > 60.0 (>42); GLUCOSE, FASTING 111 MG/DL (70-100); POTASSIUM SERUM 4.2 MEQ/L (3.5-5.1); SODIUM LEVEL 138 MEQ/L (136-145); TOTAL PROTEIN 7.9 GM/DL (6.4-8.2)
[2019-06-22] MEDS: IPRATROPIUM 0.5MG/ALBUTEROL 2.5MG INH SOL UD 3ML (DUONEB)(J7620) NEB SCH ×3 (07:35→18:30)
[2019-06-22] MEDS: HumaLOG INSULIN (NovoLOG) PER UNIT SC SCH ×4 (07:39→21:00)
[2019-06-22] MEDS: ASCORBIC ACID 500 MG TAB PO SCH (07:40)
[2019-06-22] MEDS: BACLOFEN 5MG PER 1/2 TABLET PO SCH ×3 (07:40→21:05)
[2019-06-22] MEDS: LACTOBACILLUS ACIDOPHILUS CAP (BACID) PO SCH ×3 (07:40→21:05)
[2019-06-22] MEDS: LOSARTAN 25 MG TAB PO SCH (07:41)
[2019-06-22] MEDS: guaiFENesin 200 MG TAB PO SCH ×3 (07:41→21:05)
[2019-06-22] MEDS: SENOKOT S TAB PO SCH ×2 (07:42→21:00)
[2019-06-22] MEDS: SODIUM CHLORIDE NASAL 0.65% SPRAY BTL (OCEAN) SCH ×4 (07:42→21:06)
[2019-06-22] MEDS: FLUTICASONE PROP 0.05% NASAL SPRAY 16 GM (FLONASE) NARES SCH ×2 (07:43→21:06)
[2019-06-22] MEDS: AMOXICILLIN 875 MG TAB PO SCH ×2 (07:47→21:05)
--- NOTE | 2019-06-22 10:57 | IPNPDOC ---
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 REVIEW OF SYSTEMS: The following is a completed review of systems and has been reviewed. Review of systems otherwise unremarkable. PAIN: Patient self reports no pain EYES: No recent vision changes EARS, NOSE, & THROAT: No throat pain, or dysphagia, or rhinorrhea CARDIOVASCULAR: Denies chest pain or palpitations PULMONARY: Denies shortness of breath GASTROINTESTINAL: +loose stools GENITOURINARY: retention with intermittent hematuria MUSCULOSKELETAL: LE weakness, R>L NEUROLOGICAL:+MS HEMATOLOGICAL:+hematuria (intermittent), melena (intermittent), thigh hematoma SKIN: no rash PSYCHIATRIC: Unremarkable All other review of systems found to be negative. PHYSICAL EXAMINATION: VITAL SIGNS: Please see below. GENERAL: Pleasant and cooperative. No acute distress. HEENT: PERRL. Extraocular movements intact. Clear conjunctiva CARDIOVASCULAR: Regular rate and rhythm. No murmurs, rubs, or gallops LUNGS: Clear to auscultation bilaterally. No wheezes. No rhonchi ABDOMEN: Soft, nontender, nondistended. Positive bowel sounds. Normal active bowel sounds NEUROLOGICAL: Alert and oriented times three. Cranial nerves II through XII grossly intact. Sensation grossly intact to light touch all 4 extremities 3+ patellar reflexes (-) Hoffmans bilat (-) Clonus EXTREMITIES: 5\\5 strength bilateral upper extremities. 3/5 right hip flexors, knee extensors, 3/5 ankle DF and 3+/5 EHL, 4/5 plantar flexion left hip flexors 3+/5, 4/5 knee extension/ankle DF/EHL and plantar flexion mild atrophy RLE when compared to LLE SKIN: hyperpigmented lower calves and feet, thigh hematoma, right anterior thigh ecchymosis ASSESSMENT:74-year-old M with past medical history of MS and Afib who presents hematoma of his right thigh s/p inguinal hernia repair with pneumonia and UTI. PLAN: 1. Rehab: PT- advance gait, strengthen bilat LE, work on endurance and balance training- avoid lifting >20 pounds OT- advance ADL management, especially transfers to commode at night to optimize self urinary care 2. Neuro: [facility] 3. cardio: pmh HTN, c/u Cozaar at 25mg daily, monitor for JODI Afib- currently off AC due to recent hematoma and melena, medicine consulted to assist in management 4. resp: diagnosed with LLL PNA c/u amoxicillin, Duonebs, and Guaifenesin -encourage incentive spirometry 5. GI: patient with liver lesion s/p biopsy- pathology negative for malignancy, positive for cirrhosis -(+) FOBT with intermittent melena with 2 polyps removed on recent colonoscopy, off AC, monitor 6. DVT ppx: TEDs, Coumadin on hold due to thigh hematoma and recent melena -thrombosed left popliteal artery aneurysm with suspected complete occlusion to the distal left lower extremity- will consider vascular consult -will start heparin ppx and monitor H/H 7. Endo: hx DM c/u metformin and ISS 8. : c/u Augmentin for E. Coli UTI- patient with recurrent UTIs, will discuss possibility of prophylaxis with ID -hx of BPH s/p TURP with retention, s/p inguinal hernia repair and partial resolution of constipation which may have been contributing to retention, however will c/u Flomax and do TOV tomorrow 9. Heme: monitor Hgb in setting of hx of hematuria and melena, transfuse if <8 Off AC 10. Renal: hx of JODI, monitor while on Losartan 11. Dispo: TBD Allergies Coded Allergies: gabapentin (Verified Adverse Reaction, Intermediate, elevates MS symptoms, 06/08/19) modafinil (Verified Adverse Reaction, Intermediate, elevate MS symptoms, 06/08/19) omeprazole (Verified Adverse Reaction, Intermediate, elevated MS symptoms, 06/08/19) Dkbtjfp-Mwp-Bxq Reductase Inhibitor (Verified Adverse Reaction, Mild, "PASSES OUT", 06/08/19) glatiramer (copolymer 1) (Verified Adverse Reaction, Mild, weakness, 06/08/19) Vital Signs Vital Signs Date Time Temp Pulse Resp B/P (MAP) Pulse Ox O2 Delivery O2 Flow Rate FiO2 06/22/19 07:41 128/70 06/22/19 05:50 98.8 84 18 99 Room Air Laboratory Data CBC/BMP Laboratory Tests 06/22/19 05:41 Labs 24H Laboratory Tests 2 06/21/19 17:15: Bedside Glucose (Misc Panel) 150H 06/21/19 20:16: Bedside Glucose (Misc Panel) 131H 06/22/19 05:41: Immature Granulocyte % (Auto) 1.0, Neutrophils (%) (Auto) 61.5, Lymphocytes (%) (Auto) 27.5, Monocytes (%) (Auto) 6.0H, Eosinophils (%) (Auto) 3.3H, Basophils (%) (Auto) 0.7, Neutrophils # (Auto) 4.3, Lymphocytes # (Auto) 1.9, Monocytes # (Auto) 0.4, Eosinophils # (Auto) 0.2, Basophils # (Auto) 0.1, Nucleated Red Blood Cells % (auto) 0.0, Anion Gap 7L, Glomerular Filtration Rate > 60.0, Calcium Level 8.7L, Total Bilirubin 0.8, Aspartate Amino Transf (AST/SGOT) 57H, Alanine Aminotransferase (ALT/SGPT) 84H, Alkaline Phosphatase 220H, Total Protein 7.9, Albumin 2.4L, Albumin/Globulin Ratio 0.44L Current Medications Current Medications Current Medications Medications (Trade) Dose Ordered Sig/Avelino Route PRN Reason Start Time Stop Time Status Last Admin Dose Admin Acetaminophen (Tylenol Tab) 650 mg Q4HP PRN PO MILD PAIN (PS 1-4) 06/21/19 16:00 06/22/19 01:28 Albuterol/ Ipratropium (Duoneb (Ipr 0.5mg/Alb 2.5mg)) 3 ml RTID NEB 06/21/19 20:00 06/22/19 07:35 Amoxicillin (Amoxicillin) 875 mg BID PO 06/21/19 21:00 06/27/19 09:01 06/22/19 07:47 Ascorbic Acid (Vitamin C) 500 mg DAILY PO 06/21/19 09:00 06/22/19 07:40 Baclofen (Lioresal) 5 mg TID PO 06/21/19 16:00 06/22/19 07:40 Calcium Carbonate (Tums) 500 mg DAILY PRN PO INDIGESTION 06/21/19 16:00 Dextrose (Dextrose 50%) 25 ml ASDIRECTED PRN IV SEE LABEL COMMENTS 06/21/19 16:00 Fluticasone Propionate (Flonase 0.05% Nasal [place]) 1 spray BID NARES 06/21/19 21:00 06/22/19 07:43 Glucagon (Glucagon) 1 mg ASDIRECTED PRN SC SEE LABEL COMMENTS 06/21/19 16:00 Glucose (Glucose) 16 GM ASDIRECTED PRN PO SEE LABEL COMMENTS 06/21/19 16:00 Guaifenesin (Robitussin Tab) 400 mg TID PO 06/21/19 16:00 06/22/19 07:41 Home Med (Med Rec Complete!) ASDIRECTED XX 06/21/19 15:30 06/21/19 15:27 DC Insulin Human Lispro (HumaLOG INSULIN) SEE PROTOCOL TABLE AC SC 06/21/19 17:30 06/22/19 07:39 Insulin Human Lispro (HumaLOG INSULIN) SEE PROTOCOL TABLE QHS SC 06/21/19 21:00 Lactobacillus Acidophilus (Bacid) 1 ea TID PO 06/21/19 16:00 06/22/19 07:40 Losartan Potassium (Cozaar) 25 mg DAILY PO 06/22/19 09:00 06/22/19 07:41 Metformin HCl (Glucophage) 1,000 mg DAILY@18 PO 06/21/19 18:00 06/21/19 18:12 Senna/Docusate Sodium (Senokot S) 2 tab BID PO 06/21/19 21:00 06/21/19 21:00 Sodium Chloride ([place] Nasal [place]) 2 spray QID NA 06/21/19 17:00 06/22/19 07:42 Tamsulosin HCl (Flomax) 0.4 mg QHS PO 06/21/19 21:00 06/21/19 20:59 Vitamin D (Vitamin D) 2,000 units QHS PO 06/21/19 21:00 06/21/19 21:00 KRISTINA CADENA MD Jun 22, 2019 10:57
[2019-06-22 14:00] VITALS: BP 124/67
[2019-06-22] MEDS: metFORMIN (GLUCOPHAGE) 1000 MG TABLET PO SCH (17:34)
[2019-06-22 20:00] VITALS: BP 125/68
[2019-06-22] MEDS: HEPARIN SOD (PORCINE) 5000 UNITS/ML VIAL SQ SCH (21:04)
[2019-06-22] MEDS: TAMSULOSIN 0.4 MG CAP PO SCH (21:05)
[2019-06-22] MEDS: VITAMIN D 1,000 INTERNATIONAL UNITS TABLET PO SCH (21:05)
[2019-06-23 06:00] VITALS: BP 119/77
[2019-06-23] MEDS: IPRATROPIUM 0.5MG/ALBUTEROL 2.5MG INH SOL UD 3ML (DUONEB)(J7620) NEB SCH (07:24)
[2019-06-23] MEDS: SENOKOT S TAB PO SCH ×2 (08:11→21:00)
[2019-06-23] MEDS: BACLOFEN 5MG PER 1/2 TABLET PO SCH ×3 (08:27→22:26)
[2019-06-23] MEDS: LACTOBACILLUS ACIDOPHILUS CAP (BACID) PO SCH ×3 (08:27→22:26)
[2019-06-23] MEDS: ASCORBIC ACID 500 MG TAB PO SCH (08:27)
[2019-06-23] MEDS: AMOXICILLIN 875 MG TAB PO SCH ×2 (08:28→22:27)
[2019-06-23] MEDS: guaiFENesin 200 MG TAB PO SCH ×3 (08:28→22:26)
[2019-06-23] MEDS: HEPARIN SOD (PORCINE) 5000 UNITS/ML VIAL SQ SCH ×2 (08:28→22:27)
[2019-06-23] MEDS: LOSARTAN 25 MG TAB PO SCH (08:28)
[2019-06-23] MEDS: FLUTICASONE PROP 0.05% NASAL SPRAY 16 GM (FLONASE) NARES SCH ×2 (08:29→22:29)
[2019-06-23] MEDS: SODIUM CHLORIDE NASAL 0.65% SPRAY BTL (OCEAN) SCH ×4 (08:29→21:00)
[2019-06-23] MEDS: HumaLOG INSULIN (NovoLOG) PER UNIT SC SCH ×5 (08:29→22:26)
--- NOTE | 2019-06-23 11:53 | IPNPDOC ---
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 He reports he has never had urodynamic studies done before and that he has had 4 UTIs in the past year. REVIEW OF SYSTEMS: The following is a completed review of systems and has been reviewed. Review of systems otherwise unremarkable. PAIN: Patient self reports no pain EYES: No recent vision changes EARS, NOSE, & THROAT: No throat pain, or dysphagia, or rhinorrhea CARDIOVASCULAR: Denies chest pain or palpitations PULMONARY: Denies shortness of breath GASTROINTESTINAL: +loose stools (improving) GENITOURINARY: retention with intermittent hematuria MUSCULOSKELETAL: LE weakness, R>L NEUROLOGICAL:+MS HEMATOLOGICAL:+hematuria (intermittent), melena (intermittent), thigh hematoma SKIN: no rash PSYCHIATRIC: Unremarkable All other review of systems found to be negative. PHYSICAL EXAMINATION: VITAL SIGNS: Please see below. GENERAL: Pleasant and cooperative. No acute distress. HEENT: PERRL. Extraocular movements intact. Clear conjunctiva CARDIOVASCULAR: Regular rate and rhythm. No murmurs, rubs, or gallops LUNGS: Clear to auscultation bilaterally. No wheezes. No rhonchi ABDOMEN: Soft, nontender, nondistended. Positive bowel sounds. Normal active bowel sounds NEUROLOGICAL: Alert and oriented times three. Cranial nerves II through XII grossly intact. Sensation grossly intact to light touch all 4 extremities 3+ patellar reflexes (-) Hoffmans bilat (-) Clonus EXTREMITIES: 5\\5 strength bilateral upper extremities. 3/5 right hip flexors, knee extensors, 3/5 ankle DF and 3+/5 EHL, 4/5 plantar flexion left hip flexors 3+/5, 4/5 knee extension/ankle DF/EHL and plantar flexion mild atrophy RLE when compared to LLE +diminished pedal pulse on RLE SKIN: hyperpigmented lower calves R>L and feet, thigh hematoma, right anterior thigh ecchymosis ASSESSMENT:74-year-old M with past medical history of MS and Afib who presents h ematoma of his right thigh s/p inguinal hernia repair with pneumonia and UTI. PLAN: 1. Rehab: PT- advance gait, strengthen bilat LE, work on endurance and balance training- avoid lifting >20 pounds OT- advance ADL management, especially transfers to commode at night to optimize self urinary care 2. [facility]: [facility] 3. cardio: pmh HTN, c/u Cozaar at 25mg daily, monitor for JODI Afib- currently off AC due to recent hematoma and melena, medicine consulted to assist in management, discussed with family med physician ok to keep off of coumadin at this time due to high risk for bleeding 4. resp: diagnosed with LLL PNA c/u amoxicillin, Duonebs, and Guaifenesin -encourage incentive spirometry 5. GI: patient with liver lesion s/p biopsy- pathology negative for malignancy, positive for cirrhosis -(+) FOBT with intermittent melena with 2 polyps removed on recent colonoscopy, off AC, monitor 6. 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 Endo: hx DM c/u metformin and ISS 8. : c/u Augmentin for E. Coli UTI- patient with recurrent UTIs, will discuss possibility of prophylaxis with ID- consulted for tomorrow -hx of BPH s/p TURP with retention, s/p inguinal hernia repair and partial re solution of constipation which may have been contributing to urinary retention, - c/u Flomax, mijares removed today, with PVRs and bladder scans ordered-to avoid urethral trauma will use Coude cath and lidocaine gel -will refer for urodynamic studies at [place] where there is an SCI center who should be familiar with neurogenic bladder cases 9. Heme: monitor Hgb in setting of hx of hematuria and melena, transfuse if <8 10. Renal: hx of JODI, monitor while on Losartan 11. Dispo: TBD Allergies Coded Allergies: gabapentin (Verified Adverse Reaction, Intermediate, elevates MS symptoms, 06/08/19) modafinil (Verified Adverse Reaction, Intermediate, elevate MS symptoms, 06/08/19) omeprazole (Verified Adverse Reaction, Intermediate, elevated MS symptoms, 06/08/19) Yzfusfi-Whz-Bzk Reductase Inhibitor (Verified Adverse Reaction, Mild, "PASSES OUT", 06/08/19) glatiramer (copolymer 1) (Verified Adverse Reaction, Mild, weakness, 06/08/19) Vital Signs Vital Signs Date Time Temp Pulse Resp B/P (MAP) Pulse Ox O2 Delivery O2 Flow Rate FiO2 06/23/19 08:28 119/77 06/23/19 06:00 97.7 92 18 97 Room Air Laboratory Data Labs 24H Laboratory Tests 2 06/22/19 16:50: Bedside Glucose (Misc Panel) 148H 06/22/19 20:57: Bedside Glucose (Misc Panel) 174H 06/23/19 05:38: Bedside Glucose (Misc Panel) 127H Current Medications Current Medications Current Medications Medications (Trade) Dose Ordered Sig/Avelino Route PRN Reason Start Time Stop Time Status Last Admin Dose Admin Acetaminophen (Tylenol Tab) 650 mg Q4HP PRN PO MILD PAIN (PS 1-4) 06/21/19 16:00 06/22/19 16:09 Albuterol/ Ipratropium (Duoneb (Ipr 0.5mg/Alb 2.5mg)) 3 ml RTID NEB 06/21/19 20:00 06/23/19 07:24 Amoxicillin (Amoxicillin) 875 mg BID PO 06/21/19 21:00 06/27/19 09:01 06/23/19 08:28 Ascorbic Acid (Vitamin C) 500 mg DAILY PO 06/21/19 09:00 06/23/19 08:27 Baclofen (Lioresal) 5 mg TID PO 06/21/19 16:00 06/23/19 08:27 Calcium Carbonate (Tums) 500 mg DAILY PRN PO INDIGESTION 06/21/19 16:00 Dextrose (Dextrose 50%) 25 ml ASDIRECTED PRN IV SEE LABEL COMMENTS 06/21/19 16:00 Fluticasone Propionate (Flonase 0.05% Nasal [place]) 1 spray BID NARES 06/21/19 21:00 06/23/19 08:29 Glucagon (Glucagon) 1 mg ASDIRECTED PRN SC SEE LABEL COMMENTS 06/21/19 16:00 Glucose (Glucose) 16 GM ASDIRECTED PRN PO SEE LABEL COMMENTS 06/21/19 16:00 Guaifenesin (Robitussin Tab) 400 mg TID PO 06/21/19 16:00 06/23/19 08:28 Heparin Sodium (Porcine) (Heparin) 5,000 units Q12H SQ 06/22/19 21:00 06/23/19 08:28 Home Med (Med Rec Complete!) ASDIRECTED XX 06/21/19 15:30 06/21/19 15:27 DC Insulin Human Lispro (HumaLOG INSULIN) SEE PROTOCOL TABLE AC SC 06/21/19 17:30 06/23/19 08:29 Insulin Human Lispro (HumaLOG INSULIN) SEE PROTOCOL TABLE QHS SC 06/21/19 21:00 Lactobacillus Acidophilus (Bacid) 1 ea TID PO 06/21/19 16:00 06/23/19 08:27 Losartan Potassium (Cozaar) 25 mg DAILY PO 06/22/19 09:00 06/23/19 08:28 Metformin HCl (Glucophage) 1,000 mg DAILY@18 PO 06/21/19 18:00 06/22/19 17:34 Senna/Docusate Sodium (Senokot S) 1 tab BID PO 06/22/19 21:00 Senna/Docusate Sodium (Senokot S) 2 tab BID PO 06/21/19 21:00 06/22/19 16:23 DC 06/21/19 21:00 Sodium Chloride ([place] Nasal [place]) 2 spray QID NA 06/21/19 17:00 06/23/19 08:29 Tamsulosin HCl (Flomax) 0.4 mg QHS PO 06/21/19 21:00 06/22/19 21:05 Vitamin D (Vitamin D) 2,000 units QHS PO 06/21/19 21:00 06/22/19 21:05 KRISTINA CADENA MD Jun 23, 2019 11:53
[2019-06-23] MEDS ORDERED: IPRATROPIUM 0.5MG/ALBUTEROL 2.5MG INH SOL UD 3ML (DUONEB)(J7620) NEB PRN (12:15)
[2019-06-23] MEDS ORDERED: LIDOCAINE 2% JELLY 30 ML TOP PRN (14:00)
[2019-06-23 14:27] VITALS: BP 143/76
--- NOTE | 2019-06-23 14:35 | CR.PDOC ---
General Date of Consultation: Jun 23, [address] Strauss HPI: This is a 74-year-old male who presented to [facility] ED for complaints of significant right thigh pain and swelling to the point that patient was unable to ambulate. The patient had been receiving a Lovenox bridge secondary to prior history in the patient's chart of "arterial thrombus" in preparation for a colonoscopy and EGD. His colonoscopy was completed and two days later patient developed severe pain in the right thigh. The patient was noted to have a right intramuscular hematoma and was subsequently admitted to family medicine service. The patient received 3 units packed red blood cells related to acute blood loss. The patient's anticoagulation is currently on hold. Patient had some difficulty with urinary retention and history of hematuria. It was unclear if this was secondary to enlargement of the prostate or neurogenic bladder. Patient was placed on Flomax. Patient did have significant amounts of intermittent catheterization and it was determined that we would continue with a Urban catheter for now due to the repeated trauma with the catheterization. Patient is status post consultation with Dr. Jeff Avitia for an incarcerated left inguinal hernia. He is status post robotic incarcerated left inguinal hernia repair on 06/13/2019. Vascular surgery is consulted regarding popliteal artery aneurysm occlusion. Currently the patient denies any symptoms in his lower extremities. Denies pain in lower extremities, denies knee pain. Denies pain with ambulation. Denies weakness, numbness, or tingling in lower extremities. Denies color or temperature change of lower extremities. Denies swelling. PMHx: MS Hypertension DM History of "arterial thrombus", on Coumadin. States followed with vascular surgery at the [facility] in [place] in the past. PSHX: TURP EGD/colonoscopy Liver biopsy Hernia repair SOCHX: Former smoker. ROS: As noted in HPI, otherwise 11pt ROS of systems reviewed and unremarkable. PE: GEN: 74 yo M, appears stated age. Out of bed to chair. HEENT: Normocephalic, atraumatic. Pupils are equal, round, and reactive to light. Extraocular movements are intact. No nystagmus appreciated. Sclera are nonicteric. Conjunctiva without injection. Nose midline. Nasal turbinates without bogginess. EACs both patent BL. TMs both visualized and abbott with good cone of light, no bulging or erythema. No facial asymmetry. Moist mucous membranes. Dentition fair. Pharynx pink and moist, no cobblestoning. Neck supple, trachea midline. No lymphadenopathy or thyromegaly appreciated. CHEST: Regular rate and rhythm, +S1, +S2 LUNGS: Clear to auscultation bilaterally. No wheezes, rales, or rhonchi. Breat jeanmarie appears symmetric and easy. Patient is speaking in full sentences. No accessory muscle use. ABD: Round, soft, non-tender, non-distended. Urban catheter in place. EXT: The feet are warm bilaterally. Good capillary refill on the right, capillary refill in the left foot is somewhat sluggish. Feet have a generally purplish discoloration. Mild pedal edema right greater than left. Pedal pulses are nonpalpable however are easily obtained with Doppler, right lower extremity with monophasic DP, biphasic PT. Biphasic PT/DP on the left. NEURO: Alert and oriented x 3. Cranial nerves III-XII are intact. CTA lower extremities is reviewed by Dr. Strauss. This indicates 3 vessel runoff in the right lower extremity. There is a thready anterior tibial with reconstitution at the ankle, urinalysis small but patent, posterior tibials patent. In the left lower extremity there is a 2.7 cm thrombosed popliteal aneurysm with no distal runoff. This is short segment of the peroneal is observed on imaging. A&P: 1. Left lower extremity thrombosed popliteal aneurysm. The patient states he has followed with vascular surgery in the past in [place]. Apparently has been on Coumadin for history of arterial thrombus. I do not have any further details in regards to this however it is possible this is a chronic issue. The patient denies any symptoms in his left lower extremity, denies any recent changes in the left lower extremity. He does not appear to have any acute ischemia of the left lower extremity. Biphasic DP/PT pulses are noted in the left lower extremity. Imaging is reviewed by Dr. Strauss. The patient would not be a candidate for intervention/TPA considering recent hematoma, hematuria, positive FOB, recent surgical procedure. The patient's anticoagulation, Coumadin is currently on hold. Would recommend continued monitoring and outpatient follow-up with the patient's vascular provider at the [facility] in [place]. Vital Signs/I&O Vital Signs Date Time Temp Pulse Resp B/P (MAP) Pulse Ox O2 Delivery O2 Flow Rate FiO2 06/23/19 08:28 119/77 06/23/19 06:00 97.7 92 18 97 Room Air I&O- Last 24 Hours up to 6 AM 06/23/19 06:00 Intake Total 960 ml Output Total 2200 ml Balance -1240 ml Laboratory Data Labs 24H Laboratory Tests 2 06/22/19 16:50: Bedside Glucose (Misc Panel) 148H 06/22/19 20:57: Bedside Glucose (Misc Panel) 174H 06/23/19 05:38: Bedside Glucose (Misc Panel) 127H 06/23/19 12:11: Bedside Glucose (Misc Panel) 94 Allergies Coded Allergies: gabapentin (Verified Adverse Reaction, Intermediate, elevates MS symptoms, 06/08/19) modafinil (Verified Adverse Reaction, Intermediate, elevate MS symptoms, 06/08/19) omeprazole (Verified Adverse Reaction, Intermediate, elevated MS symptoms, 06/08/19) Oudqbgt-Rzp-Oce Reductase Inhibitor (Verified Adverse Reaction, Mild, "PASSES OUT", 06/08/19) glatiramer (copolymer 1) (Verified Adverse Reaction, Mild, weakness, 06/08/19) Home Medications Scheduled Alpha Lipoic Acid (Alpha Lipoic Acid) 200 Mg Tab, 200 MG PO BID, (Reported) Amoxicillin/Potassium Clav (Amox-Clav 875-125 mg Tablet) 1 Each Tablet, 875 MG PO BID for 6 Days, #12 should take a full 10 days until 06/27/19 Ascorbic Acid (Vitamin C) 500 Mg Cap, 500 MG PO DAILY, (Reported) Baclofen (Baclofen) 10 Mg Tablet, 5 MG PO Q8H, (Reported) Calcium Carbonate (Calcium) 500 Mg Tablet, 500 MG PO DAILY, (Reported) Cholecalciferol (Vitamin D3) (Vitamin D3) 1,000 Unit Capsule, 2,000 UNIT PO QHS, (Reported) Metformin HCl (Metformin ER Osmotic) 1,000 Mg Tab, 1,000 MG PO QPM, (Reported) Sennosides/Docusate Sodium (Senna Plus Tablet) 1 Each Tablet, 2 TAB PO BID for 30 Days, #60 Scheduled PRN Acetaminophen (Acetaminophen) 325 Mg Tablet, 650 MG PO Q6HP PRN for PAIN / FEVER for 30 Days, #30 Ammonium Lactate (Ammonium Lactate) 12% Lotion, 1 DOSE TOP DAILY PRN for DRY SKIN, (Reported) APPLIES TO AREAS OF DRY SKIN Sodium Chloride (Saline Nasal [place]) 44 Ml [place], 2 SPRAY NA Q2H PRN for NASAL DRYNESS, (Reported) Sodium Phosphate,[place]-Dibasic (Fleet Enema) 133 Ml Enema, 1 EA [place] Q12HP PRN for CONSTIPATION for 30 Days, #60 Bhumi Marie Jun 23, 2019 14:35
[2019-06-23] MEDS: FUROSEMIDE 20 MG TAB PO SCH (16:13)
[2019-06-23] MEDS: metFORMIN (GLUCOPHAGE) 1000 MG TABLET PO SCH (16:56)
[2019-06-23 20:20] VITALS: BP 124/68
[2019-06-23] MEDS: IPRATROPIUM 0.03% NASAL SPRAY 30 ML (ATROVENT) SCH (21:00)
[2019-06-23] MEDS: TAMSULOSIN 0.4 MG CAP PO SCH (22:26)
[2019-06-23] MEDS: ACETAMINOPHEN TAB 650MG DOSE (2X325MG) PO PRN (22:27)
[2019-06-23] MEDS: VITAMIN D 1,000 INTERNATIONAL UNITS TABLET PO SCH (22:27)
[2019-06-24 05:45] VITALS: BP 105/63
[2019-06-24 06:52] LABS: BASO # 0.1 10^3/uL (0.0-0.2); BASO % 1.1 % (0.0-1.0); EOS # 0.2 10^3/uL (0.0-0.5); EOS % 4.3 % (0.0-3.0); HEMATOCRIT 39.3 % (42.0-52.0); HEMOGLOBIN 11.8 g/dl (13.5-17.5); LYMPH # 1.5 10^3/uL (1.5-5.0); LYMPH % 27.1 % (24.0-44.0); MONO # 0.4 10^3/uL (0.0-0.8); MONO % 7.1 % (0.0-5.0); NEUTROPHILS # 3.2 10^3/uL (1.5-8.5); NEUTROPHILS % 59.5 % (36.0-66.0); PLATELET COUNT, AUTOMATED 473 10^3/uL (150-450); RED BLOOD COUNT 3.93 10^6/uL (4.30-6.10); WHITE BLOOD COUNT 5.4 10^3/uL (4.0-10.0)
[2019-06-24 07:16] LABS: CALCIUM LEVEL 8.9 MG/DL (8.8-10.2); CREATININE FOR GFR 1.31 MG/DL (0.70-1.30); GLOMERULAR FILTRATION RATE 56.6 (>42); POTASSIUM SERUM 4.2 MEQ/L (3.5-5.1)
[2019-06-24] MEDS: SENOKOT S TAB PO SCH ×2 (09:00→21:10)
[2019-06-24] MEDS: SODIUM CHLORIDE NASAL 0.65% SPRAY BTL (OCEAN) SCH ×4 (09:00→21:12)
[2019-06-24] MEDS: LOSARTAN 25 MG TAB PO SCH (09:00)
[2019-06-24] MEDS: IPRATROPIUM 0.03% NASAL SPRAY 30 ML (ATROVENT) SCH ×2 (09:00→21:11)
[2019-06-24] MEDS: FLUTICASONE PROP 0.05% NASAL SPRAY 16 GM (FLONASE) NARES SCH ×2 (09:00→21:12)
[2019-06-24] MEDS: HEPARIN SOD (PORCINE) 5000 UNITS/ML VIAL SQ SCH ×2 (10:13→21:11)
[2019-06-24] MEDS: LACTOBACILLUS ACIDOPHILUS CAP (BACID) PO SCH ×3 (10:14→21:10)
[2019-06-24] MEDS: BACLOFEN 5MG PER 1/2 TABLET PO SCH ×3 (10:14→21:10)
[2019-06-24] MEDS: AMOXICILLIN 875 MG TAB PO SCH ×2 (10:14→21:10)
[2019-06-24] MEDS: HumaLOG INSULIN (NovoLOG) PER UNIT SC SCH ×4 (10:14→21:00)
[2019-06-24] MEDS: guaiFENesin 200 MG TAB PO SCH ×3 (10:14→21:10)
[2019-06-24] MEDS: ASCORBIC ACID 500 MG TAB PO SCH (10:15)
[2019-06-24] MEDS: FUROSEMIDE 20 MG TAB PO SCH (10:15)
--- NOTE | 2019-06-24 10:33 | IPNPDOC ---
PM&R Progress Note DATE OF SERVICE: Jun 24, 2019 Guest Specialist Progress Note Subjective: Patient reporting he is concerned about getting to the bathroom and would like to start working on transferring to the commode. He did not need to be cathet erized overnight. REVIEW OF SYSTEMS: The following is a completed review of systems and has been r eviewed. Review of systems otherwise unremarkable. PAIN: Patient self reports no pain EYES: No recent vision changes EARS, NOSE, & THROAT: No throat pain, or dysphagia, or rhinorrhea CARDIOVASCULAR: Denies chest pain or palpitations PULMONARY: Denies shortness of breath GASTROINTESTINAL: +loose stools (improving) GENITOURINARY: retention with intermittent hematuria (resolved) MUSCULOSKELETAL: LE weakness, R>L NEUROLOGICAL:+MS HEMATOLOGICAL:+hematuria (intermittent), melena (intermittent), thigh hematoma SKIN: no rash PSYCHIATRIC: Unremarkable All other review of systems found to be negative. PHYSICAL EXAMINATION: VITAL SIGNS: Please see below. GENERAL: Pleasant and cooperative. No acute distress. HEENT: PERRL. Extraocular movements intact. Clear conjunctiva CARDIOVASCULAR: Regular rate and rhythm. No murmurs, rubs, or gallops LUNGS: Clear to auscultation bilaterally. No wheezes. No rhonchi ABDOMEN: Soft, nontender, nondistended. Positive bowel sounds. Normal active bowel sounds NEUROLOGICAL: Alert and oriented times three. Cranial nerves II through XII g rossly intact. Sensation grossly intact to light touch all 4 extremities 3+ patellar reflexes (-) Hoffmans bilat (-) Clonus EXTREMITIES: 5\\5 strength bilateral upper extremities. 3/5 right hip flexors, knee extensors, 3/5 ankle DF and 3+/5 EHL, 4/5 plantar flexion left hip flexors 3+/5, 4/5 knee extension/ankle DF/EHL and plantar flexion mild atrophy RLE when compared to LLE +diminished pedal pulse on RLE SKIN: hyperpigmented lower calves R>L and feet, thigh hematoma, right anterior thigh ecchymosis ASSESSMENT:74-year-old M with past medical history of MS and Afib who presents hematoma of his right thigh s/p inguinal hernia repair with pneumonia and UTI. PLAN: 1. Rehab: PT- advance gait, strengthen bilat LE, work on endurance and balance training- avoid lifting >20 pounds OT- advance ADL management, especially transfers to commode at night to optimize self urinary care 2. [facility]: [facility] 3. cardio: pmh HTN, c/u Cozaar at 25mg daily, monitor for JODI 4. resp: diagnosed with LLL PNA c/u amoxicillin, Duonebs, and Guaifenesin -encourage incentive spirometry 5. GI: patient with liver lesion s/p biopsy- pathology negative for malignancy, positive for cirrhosis -(+) FOBT with intermittent melena with 2 polyps removed on recent colonoscopy, off AC, monitor 6. 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 Endo: hx DM c/u metformin and ISS 8. : c/u Augmentin for E. Coli UTI- patient with recurrent UTIs, will discuss possibility of prophylaxis with ID- consulted -hx of BPH s/p TURP with retention, s/p inguinal hernia repair and partial resolution of constipation which may have been contributing to urinary retention, - c/u Flomax, mijares removed, voiding well so far -will refer for urodynamic studies at [facility] where there is an SCI center who should be familiar with neurogenic bladder cases 9. Heme: monitor Hgb in setting of hx of hematuria and melena, transfuse if <8 10. Renal: hx of JODI, monitor while on Losartan 11. Dispo: TBD Allergies Coded Allergies: gabapentin (Verified Adverse Reaction, Intermediate, elevates MS symptoms, 06/08/19) modafinil (Verified Adverse Reaction, Intermediate, elevate MS symptoms, 06/08/19) omeprazole (Verified Adverse Reaction, Intermediate, elevated MS symptoms, 06/08/19) Yvgmhkd-Cst-Qth Reductase Inhibitor (Verified Adverse Reaction, Mild, "PASSES OUT", 06/08/19) glatiramer (copolymer 1) (Verified Adverse Reaction, Mild, weakness, 06/08/19) Vital Signs Vital Signs Date Time Temp Pulse Resp B/P (MAP) Pulse Ox O2 Delivery O2 Flow Rate FiO2 06/24/19 09:00 105/63 06/24/19 05:45 97.8 72 18 97 Room Air Laboratory Data CBC/BMP Laboratory Tests 06/24/19 06:25 Labs 24H Laboratory Tests 2 06/23/19 12:11: Bedside Glucose (Misc Panel) 94 06/23/19 16:17: Bedside Glucose (Misc Panel) 163H 06/23/19 22:42: Bedside Glucose (Misc Panel) 139H 06/24/19 06:17: Bedside Glucose (Misc Panel) 118H 06/24/19 06:25: Immature Granulocyte % (Auto) 0.9, Neutrophils (%) (Auto) 59.5, Lymphocytes (%) (Auto) 27.1, Monocytes (%) (Auto) 7.1H, Eosinophils (%) (Auto) 4.3H, Basophils (%) (Auto) 1.1H, Neutrophils # (Auto) 3.2, Lymphocytes # (Auto) 1.5, Monocytes # (Auto) 0.4, Eosinophils # (Auto) 0.2, Basophils # (Auto) 0.1, Nucleated Red Blood Cells % (auto) 0.0, Anion Gap 7L, Glomerular Filtration Rate 56.6, Calcium Level 8.9 Current Medications Current Medications Current Medications Medications (Trade) Dose Ordered Sig/Avelino Route PRN Reason Start Time Stop Time Status Last Admin Dose Admin Acetaminophen (Tylenol Tab) 650 mg Q4HP PRN PO MILD PAIN (PS 1-4) 06/21/19 16:00 06/23/19 22:27 Albuterol/ Ipratropium (Duoneb (Ipr 0.5mg/Alb 2.5mg)) 3 ml RTID NEB 06/21/19 20:00 06/23/19 12:03 DC 06/23/19 07:24 Albuterol/ Ipratropium (Duoneb (Ipr 0.5mg/Alb 2.5mg)) 3 ml RTID PRN NEB WHEEZING 06/23/19 12:15 Amoxicillin (Amoxicillin) 875 mg BID PO 06/21/19 21:00 06/27/19 09:01 06/24/19 10:14 Ascorbic Acid (Vitamin C) 500 mg DAILY PO 06/21/19 09:00 06/24/19 10:15 Baclofen (Lioresal) 5 mg TID PO 06/21/19 16:00 06/24/19 10:14 Calcium Carbonate (Tums) 500 mg DAILY PRN PO INDIGESTION 06/21/19 16:00 Dextrose (Dextrose 50%) 25 ml ASDIRECTED PRN IV SEE LABEL COMMENTS 06/21/19 16:00 Fluticasone Propionate (Flonase 0.05% Nasal [place]) 1 spray BID NARES 06/21/19 21:00 06/24/19 09:00 Furosemide (Lasix) 20 mg DAILY PO 06/23/19 09:00 06/24/19 10:15 Glucagon (Glucagon) 1 mg ASDIRECTED PRN SC SEE LABEL COMMENTS 06/21/19 16:00 Glucose (Glucose) 16 GM ASDIRECTED PRN PO SEE LABEL COMMENTS 06/21/19 16:00 Guaifenesin (Robitussin Tab) 400 mg TID PO 06/21/19 16:00 06/24/19 10:14 Heparin Sodium (Porcine) (Heparin) 5,000 units Q12H SQ 06/22/19 21:00 06/24/19 10:13 Home Med (Med Rec Complete!) ASDIRECTED XX 06/21/19 15:30 06/21/19 15:27 DC Insulin Human Lispro (HumaLOG INSULIN) SEE PROTOCOL TABLE AC SC 06/21/19 17:30 06/24/19 10:14 Insulin Human Lispro (HumaLOG INSULIN) SEE PROTOCOL TABLE QHS SC 06/21/19 21:00 Ipratropium [place] (Atrovent 0.03%) 2 spray BID NA 06/23/19 21:00 Lactobacillus Acidophilus (Bacid) 1 ea TID PO 06/21/19 16:00 06/24/19 10:14 Lidocaine HCl (Lidocaine 2% Jelly) with each intermittent catheterization ASDIRECTED PRN TOP w/intermittent catheterization 06/23/19 14:00 Losartan Potassium (Cozaar) 25 mg DAILY PO 06/22/19 09:00 06/23/19 08:28 Metformin HCl (Glucophage) 1,000 mg DAILY@18 PO 06/21/19 18:00 06/23/19 16:56 Senna/Docusate Sodium (Senokot S) 1 tab BID PO 06/22/19 21:00 Senna/Docusate Sodium (Senokot S) 2 tab BID PO 06/21/19 21:00 06/22/19 16:23 DC 06/21/19 21:00 Sodium Chloride ([place] Nasal [place]) 2 spray QID NA 06/21/19 17:00 06/24/19 09:00 Tamsulosin HCl (Flomax) 0.4 mg QHS PO 06/21/19 21:00 06/23/19 22:26 Vitamin D (Vitamin D) 2,000 units QHS PO 06/21/19 21:00 06/23/19 22:27 KRISTINA CADENA MD Jun 24, 2019 10:33
[2019-06-24] MEDS: metFORMIN (GLUCOPHAGE) 500 MG TAB PO SCH (16:54)
[2019-06-24 20:00] VITALS: BP 111/62
[2019-06-24] MEDS: VITAMIN D 1,000 INTERNATIONAL UNITS TABLET PO SCH (21:10)
[2019-06-24] MEDS: TAMSULOSIN 0.4 MG CAP PO SCH (21:10)
[2019-06-25 06:15] VITALS: BP 122/58
[2019-06-25 06:45] LABS: HEMATOCRIT 37.8 % (42.0-52.0); HEMOGLOBIN 11.9 g/dl (13.5-17.5); MEAN CORPUSCULAR HEMOGLOBIN 30.7 pg (27.0-33.0); MEAN CORPUSCULAR HGB CONC 31.5 g/dl (32.0-36.5); MEAN CORPUSCULAR VOLUME 97.4 fl (80.0-96.0); PLATELET COUNT, AUTOMATED 492 10^3/uL (150-450); RED BLOOD COUNT 3.88 10^6/uL (4.30-6.10); WHITE BLOOD COUNT 6.2 10^3/uL (4.0-10.0)
[2019-06-25 07:14] LABS: BLOOD UREA NITROGEN 32 MG/DL (7-18); CALCIUM LEVEL 9.2 MG/DL (8.8-10.2); CARBON DIOXIDE LEVEL 25 MEQ/L (21-32); CHLORIDE LEVEL 107 MEQ/L (98-107); CREATININE FOR GFR 1.19 MG/DL (0.70-1.30); GLOMERULAR FILTRATION RATE > 60.0 (>42); GLUCOSE, FASTING 123 MG/DL (70-100); POTASSIUM SERUM 3.9 MEQ/L (3.5-5.1); SODIUM LEVEL 140 MEQ/L (136-145)
[2019-06-25] MEDS: HumaLOG INSULIN (NovoLOG) PER UNIT SC SCH ×4 (07:59→21:00)
[2019-06-25] MEDS: BACLOFEN 5MG PER 1/2 TABLET PO SCH ×3 (08:24→21:18)
[2019-06-25] MEDS: LACTOBACILLUS ACIDOPHILUS CAP (BACID) PO SCH ×3 (08:24→21:18)
[2019-06-25] MEDS: SENOKOT S TAB PO SCH ×2 (08:24→21:18)
[2019-06-25] MEDS: ASCORBIC ACID 500 MG TAB PO SCH (08:24)
[2019-06-25] MEDS: LOSARTAN 25 MG TAB PO SCH (08:25)
[2019-06-25] MEDS: HEPARIN SOD (PORCINE) 5000 UNITS/ML VIAL SQ SCH ×2 (08:25→21:19)
[2019-06-25] MEDS: AMOXICILLIN 875 MG TAB PO SCH (08:25)
[2019-06-25] MEDS: guaiFENesin 200 MG TAB PO SCH ×3 (08:25→21:18)
[2019-06-25] MEDS: IPRATROPIUM 0.03% NASAL SPRAY 30 ML (ATROVENT) SCH ×2 (08:26→21:20)
[2019-06-25] MEDS: FLUTICASONE PROP 0.05% NASAL SPRAY 16 GM (FLONASE) NARES SCH ×2 (08:26→21:20)
[2019-06-25] MEDS: SODIUM CHLORIDE NASAL 0.65% SPRAY BTL (OCEAN) SCH ×4 (08:27→21:20)
--- NOTE | 2019-06-25 08:47 | CR ---
DATE OF CONSULTATION: 06/24/2019 REASON FOR CONSULTATION: I was asked to consult by Dr. Fermin for evaluation of recurrent urinary tract infections. History was obtained from the patient and review of all the medical record. The patient was initially admitted on April 21, discharged on April 30 with documented E. coli urinary tract infection with sepsis with a temperature of 101.2 and a white count of 21,000. Urine culture had positive E. coli during that hospitalization and blood culture was negative. The patient was discharged home and did well, readmitted on 06/03 for 48 hours for a liver biopsy. He had elevated LFTs. The patient has a known history of alcoholic liver cirrhosis and the biopsy was consistent with liver cirrhosis and regenerating nodule and liver cancer. The patient was discharged home for 48 hours, was readmitted on 06/08 with pain in his right leg and a hematoma. Imaging showed a large complex intramuscular fluid collection along the lateral aspect of the thigh. He was also noted to have a very large incarcerated inguinal hernia and he had urinary retention so he was evaluated by Dr. Avitia who did the surgery robotically on 06/13 for incarcerated inguinal hernia. The patient has had multiple episodes of urinary retention. While in the hospital he has been straight catheterized many times and now he has a Urban catheter. He has a history of benign prostatic hypertrophy (BPH) and had a transurethral resection of prostate (TURP) done in March of 2009, about 10 years ago. He has some episodes of dribbling, but for the most part he is not incontinent, but since his hospitalization he has been incontinent. He has a history of multiple sclerosis for 30 years. He walks with a walker. He is well controlled with Solu-Medrol every four months. He is followed by neurology at the ID. His most recent urine culture had again E. coli on 06/09. His urinalysis had many white cells. He had low grade fevers on 06/14 and 06/18. He was on Augmentin on 06/09 that was discontinued on 06/21. REVIEW OF SYSTEMS: The patient denies any pain except in the lateral thigh on the right side. No visual changes. No sore throat. No chest pain or palpitations. No shortness of breath. No constipation or diarrhea. He has some dysuria because the Urban catheter had been in and out with intermittent hematuria. He has lower extremity weakness, right more than left. PAST MEDICAL HISTORY: Significant for: Multiple sclerosis for 20 years. BPH. 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 History of arterial thrombus, on Coumadin. Diabetes. Hypertension. Liver cirrhosis with liver mass that was biopsied and found to be a regenerating cirrhotic nodule. PAST SURGICAL HISTORY: TURP done by Dr. Malagon in 2008. Liver biopsy consistent with cirrhosis. Endoscopy and colonoscopy done by Dr. Larsen on 06/07, which showed mild gastritis. Negative for H. pylori and tubular adenomas. PHYSICAL EXAMINATION: He is a pleasant, healthy looking gentleman in no acute distress. Heart normal S1, S2. No murmurs, rubs or gallops. Lungs are clear. No wheezes, rales or rhonchi. Abdomen is soft, nontender. No hepatosplenomegaly. Bowel sounds present. He has laparoscopic scars, five of them, from surgery on left inguinal hernia. Neurologic exam: Alert and oriented times three. Motor strength is normal. Musculoskeletal exam: He has tenderness along his right thigh with induration and tenderness where the hematoma was. He has some weak knee extensors and hip flexors. Skin: Hyperpigmented venous changes of lower extremities and thigh hematoma. LABORATORIES: White count 5.4, hemoglobin 11.8, hematocrit 39.3, platelets 473, 59% neutrophils, 27% lymphocytes, 7% monocytes. The highest his white count was during his hospitalization was 13.6 on 06/10 and he has been afebrile. Sodium 140, potassium 4.2, chloride 106, bicarb 27, BUN 27, creatinine 1.31, glucose 113, calcium 8.9, AST 57, ALT 84, alkaline phosphatase 220. ALLERGIES: 1. STATINS. 2. GABAPENTIN. 3. GLATIRAMER. 4. MODAFINIL. 5. OMEPRAZOLE. MEDICATIONS: - metformin 500 mg by mouth daily - Atrovent two sprays twice a day - albuterol/Atrovent nebs daily - Senokot one tablet by mouth twice a day - losartan 25 mg by mouth daily - amoxicillin on 06/24, 875 mg by mouth twice a day. He had already received Augmentin from 06/09 to 06/21. - Flonase one spray twice a day - tamsulosin 0.4 mg by mouth at bedtime - insulin sliding scale - Tylenol as needed - baclofen 5 mg by mouth three times a day - probiotics one tablet by mouth three times a day - guaifenesin 400 mg by mouth three times a day IMPRESSION: : This is a 74-year-old gentleman with a history of multiple sclerosis, BPH status post TURP with urinary retention. According to the patient he has had about 150-180 in post void residual recently, but prior to that he was having around 600 mL. He had two documented urinary tract infections at [facility] in the past two months and he says he had another urinary tract infection treated by the [facility] clinic as well. So, since this summer the patient has had three episodes of urinary tract infection with E. Coli. He has post void residual and is at risk of having recurrent UTIs. He has no contraindication to Macrobid and it would not be a bad idea to give him a trial of Macrodantin 100 mg by mouth daily if there is no contraindication. PLAN: Will discuss with urology and make sure they are in agreement. Start Macrobid 100 mg by mouth daily, discontinue amoxicillin. The case has been discussed with his daughter who is a registered nurse fetal. I have reviewed his records from [facility] outpatient and his last note from urology was on 04/15 by Mary Grace Carvajal as a workup of painless hematuria the patient had a cystoscopy.
--- NOTE | 2019-06-25 10:34 | IPNPDOC ---
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 REVIEW OF SYSTEMS: The following is a completed review of systems and has been reviewed. Review of systems otherwise unremarkable. PAIN: Patient self reports no pain EYES: No recent vision changes EARS, NOSE, & THROAT: No throat pain, or dysphagia, or rhinorrhea CARDIOVASCULAR: Denies chest pain or palpitations PULMONARY: Denies shortness of breath GASTROINTESTINAL: +loose stools (improving) GENITOURINARY: retention with intermittent hematuria (resolved) MUSCULOSKELETAL: LE weakness, R>L NEUROLOGICAL:+MS HEMATOLOGICAL:+hematuria (intermittent), melena (intermittent), thigh hematoma (improving) SKIN: no rash PSYCHIATRIC: Unremarkable All other review of systems found to be negative. PHYSICAL EXAMINATION: VITAL SIGNS: Please see below. GENERAL: Pleasant and cooperative. No acute distress. HEENT: PERRL. Extraocular movements intact. Clear conjunctiva CARDIOVASCULAR: Regular rate and rhythm. No murmurs, rubs, or gallops LUNGS: Clear to auscultation bilaterally. No wheezes. No rhonchi ABDOMEN: Soft, nontender, nondistended. Positive bowel sounds. Normal active bowel sounds NEUROLOGICAL: Alert and oriented times three. Cranial nerves II through XII grossly intact. Sensation grossly intact to light touch all 4 extremities 3+ patellar reflexes (-) Hoffmans bilat (-) Clonus EXTREMITIES: 5\\5 strength bilateral upper extremities. 3/5 right hip flexors, knee extensors, 3/5 ankle DF and 3+/5 EHL, 4/5 plantar flexion left hip flexors 3+/5, 4/5 knee extension/ankle DF/EHL and plantar flexion mild atrophy RLE when compared to LLE +diminished pedal pulse on RLE SKIN: hyperpigmented lower calves R>L and feet, thigh hematoma, right anterior thigh ecchymosis ASSESSMENT:74-year-old M with past medical history of MS and Afib who presents hematoma of his right thigh s/p inguinal hernia repair with pneumonia and UTI. PLAN: 1. Rehab: PT- advance gait, strengthen bilat LE, work on endurance and balance training- avoid lifting >20 pounds OT- advance ADL management, especially transfers to commode at night to optimize self urinary care 2. [facility] 3. cardio: pmh HTN, c/u Cozaar at 25mg daily, monitor for JODI 4. resp: diagnosed with LLL PNA s/p amoxicillin, Duonebs prn, and Guaifenesin, patient without cough, no leukocytosis -encourage incentive spirometry 5. GI: patient with liver lesion s/p biopsy- pathology negative for malignancy, positive for cirrhosis -(+) FOBT with intermittent melena with 2 polyps removed on recent colonoscopy, off AC, monitor -s/p inguinal hernia repair, will need /fu with surgery 6. 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 Endo: hx DM c/u metformin and ISS 8. : s/p Augmentin for E. Coli UTI- patient with recurrent UTIs, -Dr. Kilpatrick's recs appreciated, will d/c Augmentin and start prophylactic Macrobid -hx of BPH s/p TURP with retention, s/p inguinal hernia repair and partial resolution of constipation which may have been contributing to urinary retenti on, - c/u Flomax, mijares removed, voiding well so far -will refer for urodynamic studies at [place] where there is an SCI center who should be familiar with neurogenic bladder cases 9. Heme: monitor Hgb in setting of hx of hematuria and melena, transfuse if <8 10. Renal: hx of JODI, monitor while on Losartan-stable 11. Dispo: 07-06-19 to home, progressing towards goals Allergies Coded Allergies: gabapentin (Verified Adverse Reaction, Intermediate, elevates MS symptoms, 06/08/19) modafinil (Verified Adverse Reaction, Intermediate, elevate MS symptoms, 06/08/19) omeprazole (Verified Adverse Reaction, Intermediate, elevated MS symptoms, 06/08/19) Mbkoxii-Dix-Asa Reductase Inhibitor (Verified Adverse Reaction, Mild, "PASSES OUT", 06/08/19) glatiramer (copolymer 1) (Verified Adverse Reaction, Mild, weakness, 06/08/19) Vital Signs Vital Signs Date Time Temp Pulse Resp B/P (MAP) Pulse Ox O2 Delivery O2 Flow Rate FiO2 06/25/19 08:25 119/72 06/25/19 06:15 97.1 72 18 98 Room Air Laboratory Data CBC/BMP Laboratory Tests 06/25/19 06:22 Labs 24H Laboratory Tests 2 06/24/19 12:09: Bedside Glucose (Misc Panel) 70L 06/24/19 16:49: Bedside Glucose (Misc Panel) 172H 06/24/19 20:46: Bedside Glucose (Misc Panel) 103 06/25/19 06:22: Nucleated Red Blood Cells % (auto) 0.0, Anion Gap 8, Glomerular Filtration Rate > 60.0, Calcium Level 9.2 Current Medications Current Medications Current Medications Medications (Trade) Dose Ordered Sig/Avelino Route PRN Reason Start Time Stop Time Status Last Admin Dose Admin Acetaminophen (Tylenol Tab) 650 mg Q4HP PRN PO MILD PAIN (PS 1-4) 06/21/19 16:00 06/23/19 22:27 Albuterol/ Ipratropium (Duoneb (Ipr 0.5mg/Alb 2.5mg)) 3 ml RTID NEB 06/21/19 20:00 06/23/19 12:03 DC 06/23/19 07:24 Albuterol/ Ipratropium (Duoneb (Ipr 0.5mg/Alb 2.5mg)) 3 ml RTID PRN NEB WHEEZING 06/23/19 12:15 Amoxicillin (Amoxicillin) 875 mg BID PO 06/21/19 21:00 06/27/19 09:01 06/25/19 08:25 Ascorbic Acid (Vitamin C) 500 mg DAILY PO 06/21/19 09:00 06/25/19 08:24 Baclofen (Lioresal) 5 mg TID PO 06/21/19 16:00 06/25/19 08:24 Calcium Carbonate (Tums) 500 mg DAILY PRN PO INDIGESTION 06/21/19 16:00 Dextrose (Dextrose 50%) 25 ml ASDIRECTED PRN IV SEE LABEL COMMENTS 06/21/19 16:00 Fluticasone Propionate (Flonase 0.05% Nasal [place]) 1 spray BID NARES 06/21/19 21:00 06/25/19 08:26 Furosemide (Lasix) 20 mg DAILY PO 06/23/19 09:00 06/24/19 10:30 DC 06/24/19 10:15 Glucagon (Glucagon) 1 mg ASDIRECTED PRN SC SEE LABEL COMMENTS 06/21/19 16:00 Glucose (Glucose) 16 GM ASDIRECTED PRN PO SEE LABEL COMMENTS 06/21/19 16:00 Guaifenesin (Robitussin Tab) 400 mg TID PO 06/21/19 16:00 06/24/19 21:10 Heparin Sodium (Porcine) (Heparin) 5,000 units Q12H SQ 06/22/19 21:00 06/25/19 08:25 Home Med (Med Rec Complete!) ASDIRECTED XX 06/21/19 15:30 06/21/19 15:27 DC Insulin Human Lispro (HumaLOG INSULIN) SEE PROTOCOL TABLE AC SC 06/21/19 17:30 06/25/19 07:59 Insulin Human Lispro (HumaLOG INSULIN) SEE PROTOCOL TABLE QHS [place] 06/21/19 21:00 Ipratropium [place] (Atrovent 0.03%) 2 spray BID NA 06/23/19 21:00 06/25/19 08:26 Lactobacillus Acidophilus (Bacid) 1 ea TID PO 06/21/19 16:00 06/25/19 08:24 Lidocaine HCl (Lidocaine 2% Jelly) with each intermittent catheterization ASDIRECTED PRN TOP w/intermittent catheterization 06/23/19 14:00 Losartan Potassium (Cozaar) 25 mg DAILY PO 06/22/19 09:00 06/25/19 08:25 Metformin HCl (Glucophage) 500 mg DAILY@18 PO 06/24/19 18:00 06/24/19 16:54 Metformin HCl (Glucophage) 1,000 mg DAILY@18 PO 06/21/19 18:00 06/24/19 12:19 DC 06/23/19 16:56 Senna/Docusate Sodium (Senokot S) 1 tab BID PO 06/22/19 21:00 06/25/19 08:24 Senna/Docusate Sodium (Senokot S) 2 tab BID PO 06/21/19 21:00 06/22/19 16:23 DC 06/21/19 21:00 Sodium Chloride ([place] Nasal [place]) 2 spray QID NA 06/21/19 17:00 06/25/19 08:27 Tamsulosin HCl (Flomax) 0.4 mg QHS PO 06/21/19 21:00 06/24/19 21:10 Vitamin D (Vitamin D) 2,000 units QHS PO 06/21/19 21:00 06/24/19 21:10 KRISTINA CADENA MD Jun 25, 2019 10:34
[2019-06-25] MEDS: NITROFURANTOIN (MACROBID) 100 MG CAP PO SCH (13:12)
--- NOTE | 2019-06-25 14:19 | IPN ---
DATE: 06/25/2019 Mr. Smith is sitting in his chair in his gym outfit. He is ready to go for physical therapy (PT). He is doing great and has no complaints. No nausea, vomiting, or diarrhea. He still complains of mild dysuria, but he thinks that it is related to his Urban catheter. PHYSICAL EXAMINATION: Heart: Normal S1, S2. No murmurs appreciated. Lungs are clear. No wheezes, rales or rhonchi. Abdomen is soft, nontender. No hepatosplenomegaly. Surgical scars that are well healed from inguinal hernia surgery without redness, tenderness or drainage. Extremities: Right lower extremity has +1 ankle edema and he has ecchymosis of the right lateral thigh with mild tenderness. MEDICATIONS: - probiotics 1 tablet by mouth three times a day - Senokot S tablet by mouth three times a day - Macrobid 100 mg daily started today IMPRESSION: 1. Recurrent urinary tract infection with three documented episodes of urinary tract infection, two at [facility] with Escherichia (E) coli and one [facility], according to the patient. With a history of neurogenic bladder, the patient would probably benefit from Macrobid 100 mg by mouth daily for chronic suppressive therapy, started on 06/21 a 10-day course for E-coli UTI. 2. Multiple sclerosis. On IV steroids every four months, he is not on any other immunosuppressive therapy for his MS. 3. Right thigh hematoma The patient is on warfarin. LABORATORIES: White count 6.2, hemoglobin 11.9, hematocrit 37.8, platelets 492. Sodium 140, potassium 3.9, chloride 107, bicarbonate 25, BUN 32, creatinine 1.19, glucose 123, calcium 9.2. PLAN: Macrobid 100 mg by mouth daily for chronic suppressive therapy. The patient is to followup with Dr. Fofana in his office. He does not need infectious disease followup. I am signing off. Thank you for the consultation. Case was discussed with Dr. Fermin, as well as Dr. Carrero, who is his primary care provider.
[2019-06-25 15:00] VITALS: BP 115/56
[2019-06-25] MEDS ORDERED: LACTOBACILLUS ACIDOPHILUS CAP (BACID) PO SCH (16:00)
[2019-06-25] MEDS: metFORMIN (GLUCOPHAGE) 500 MG TAB PO SCH (17:31)
[2019-06-25 20:15] VITALS: BP 133/64
[2019-06-25] MEDS: TAMSULOSIN 0.4 MG CAP PO SCH (21:18)
[2019-06-25] MEDS: VITAMIN D 1,000 INTERNATIONAL UNITS TABLET PO SCH (21:19)
[2019-06-26 05:15] VITALS: BP 125/71
[2019-06-26] MEDS: HumaLOG INSULIN (NovoLOG) PER UNIT SC SCH ×4 (08:39→20:14)
[2019-06-26] MEDS: HEPARIN SOD (PORCINE) 5000 UNITS/ML VIAL SQ SCH ×2 (08:40→20:13)
[2019-06-26 09:15] VITALS: BP 122/62
[2019-06-26] MEDS: BACLOFEN 5MG PER 1/2 TABLET PO SCH ×3 (09:17→20:13)
[2019-06-26] MEDS: LACTOBACILLUS ACIDOPHILUS CAP (BACID) PO SCH ×3 (09:17→20:13)
[2019-06-26] MEDS: SENOKOT S TAB PO SCH ×2 (09:17→20:13)
[2019-06-26] MEDS: guaiFENesin 200 MG TAB PO SCH ×3 (09:17→20:14)
[2019-06-26] MEDS: ASCORBIC ACID 500 MG TAB PO SCH (09:17)
[2019-06-26] MEDS: NITROFURANTOIN (MACROBID) 100 MG CAP PO SCH (09:17)
[2019-06-26] MEDS: LOSARTAN 25 MG TAB PO SCH (09:17)
[2019-06-26] MEDS: IPRATROPIUM 0.03% NASAL SPRAY 30 ML (ATROVENT) SCH ×2 (09:18→20:15)
[2019-06-26] MEDS: FLUTICASONE PROP 0.05% NASAL SPRAY 16 GM (FLONASE) NARES SCH ×2 (09:18→20:15)
[2019-06-26] MEDS: SODIUM CHLORIDE NASAL 0.65% SPRAY BTL (OCEAN) SCH ×4 (09:18→20:15)
[2019-06-26 14:00] VITALS: BP 122/66
[2019-06-26] MEDS: metFORMIN (GLUCOPHAGE) 500 MG TAB PO SCH (18:11)
[2019-06-26 20:00] VITALS: BP 128/75
[2019-06-26] MEDS: TAMSULOSIN 0.4 MG CAP PO SCH (20:13)
[2019-06-26] MEDS: VITAMIN D 1,000 INTERNATIONAL UNITS TABLET PO SCH (20:13)
[2019-06-27 05:30] VITALS: BP 139/81
[2019-06-27] MEDS: LACTOBACILLUS ACIDOPHILUS CAP (BACID) PO SCH ×3 (08:29→20:54)
[2019-06-27] MEDS: BACLOFEN 5MG PER 1/2 TABLET PO SCH ×3 (08:30→20:54)
[2019-06-27] MEDS: guaiFENesin 200 MG TAB PO SCH ×3 (08:30→20:54)
[2019-06-27] MEDS: NITROFURANTOIN (MACROBID) 100 MG CAP PO SCH (08:30)
[2019-06-27] MEDS: ASCORBIC ACID 500 MG TAB PO SCH (08:30)
[2019-06-27] MEDS: HEPARIN SOD (PORCINE) 5000 UNITS/ML VIAL SQ SCH ×2 (08:30→20:53)
[2019-06-27] MEDS: LOSARTAN 25 MG TAB PO SCH (08:30)
[2019-06-27] MEDS: SENOKOT S TAB PO SCH ×2 (08:30→20:53)
[2019-06-27] MEDS: HumaLOG INSULIN (NovoLOG) PER UNIT SC SCH ×4 (08:30→20:54)
[2019-06-27] MEDS: SODIUM CHLORIDE NASAL 0.65% SPRAY BTL (OCEAN) SCH ×4 (08:31→20:54)
[2019-06-27] MEDS: FLUTICASONE PROP 0.05% NASAL SPRAY 16 GM (FLONASE) NARES SCH ×2 (08:31→20:54)
[2019-06-27] MEDS: IPRATROPIUM 0.03% NASAL SPRAY 30 ML (ATROVENT) SCH ×2 (08:31→20:54)
[2019-06-27 16:00] VITALS: BP 150/68
[2019-06-27] MEDS: metFORMIN (GLUCOPHAGE) 500 MG TAB PO SCH (17:12)
[2019-06-27 20:00] VITALS: BP 133/76
[2019-06-27] MEDS: TAMSULOSIN 0.4 MG CAP PO SCH (20:54)
[2019-06-27] MEDS: VITAMIN D 1,000 INTERNATIONAL UNITS TABLET PO SCH (20:54)
[2019-06-28] MEDS: ACETAMINOPHEN TAB 650MG DOSE (2X325MG) PO PRN (03:48)
[2019-06-28 06:00] VITALS: BP 128/74
[2019-06-28 07:17] LABS: HEMATOCRIT 36.4 % (42.0-52.0); HEMOGLOBIN 11.1 g/dl (13.5-17.5); MEAN CORPUSCULAR HEMOGLOBIN 30.6 pg (27.0-33.0); MEAN CORPUSCULAR HGB CONC 30.5 g/dl (32.0-36.5); MEAN CORPUSCULAR VOLUME 100.3 fl (80.0-96.0); PLATELET COUNT, AUTOMATED 370 10^3/uL (150-450); RED BLOOD COUNT 3.63 10^6/uL (4.30-6.10); WHITE BLOOD COUNT 5.2 10^3/uL (4.0-10.0)
[2019-06-28] MEDS: NITROFURANTOIN (MACROBID) 100 MG CAP PO SCH (09:00)
[2019-06-28] MEDS: HEPARIN SOD (PORCINE) 5000 UNITS/ML VIAL SQ SCH ×2 (09:10→20:26)
[2019-06-28] MEDS: LACTOBACILLUS ACIDOPHILUS CAP (BACID) PO SCH ×3 (09:10→20:25)
[2019-06-28] MEDS: SENOKOT S TAB PO SCH ×2 (09:10→20:25)
[2019-06-28] MEDS: guaiFENesin 200 MG TAB PO SCH ×3 (09:10→20:25)
[2019-06-28] MEDS: HumaLOG INSULIN (NovoLOG) PER UNIT SC SCH ×4 (09:10→20:16)
[2019-06-28] MEDS: BACLOFEN 5MG PER 1/2 TABLET PO SCH ×3 (09:10→20:25)
[2019-06-28] MEDS: ASCORBIC ACID 500 MG TAB PO SCH (09:10)
[2019-06-28] MEDS: LOSARTAN 25 MG TAB PO SCH (09:10)
[2019-06-28] MEDS: IPRATROPIUM 0.03% NASAL SPRAY 30 ML (ATROVENT) SCH ×2 (09:11→20:26)
[2019-06-28] MEDS: FLUTICASONE PROP 0.05% NASAL SPRAY 16 GM (FLONASE) NARES SCH ×2 (09:11→20:26)
[2019-06-28] MEDS: SODIUM CHLORIDE NASAL 0.65% SPRAY BTL (OCEAN) SCH ×4 (09:11→20:26)
--- NOTE | 2019-06-28 09:51 | IPNPDOC ---
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 REVIEW OF SYSTEMS: The following is a completed review of systems and has been reviewed. Review of systems otherwise unremarkable. PAIN: Patient self reports no pain EYES: No recent vision changes EARS, NOSE, & THROAT: No throat pain, or dysphagia, or rhinorrhea CARDIOVASCULAR: Denies chest pain or palpitations PULMONARY: Denies shortness of breath GASTROINTESTINAL: +loose stools (improving) GENITOURINARY: retention with intermittent hematuria (resolved) MUSCULOSKELETAL: LE weakness, R>L NEUROLOGICAL:+MS HEMATOLOGICAL:+hematuria (intermittent), melena (intermittent), thigh hematoma (improving) SKIN: no rash PSYCHIATRIC: Unremarkable All other review of systems found to be negative. PHYSICAL EXAMINATION: VITAL SIGNS: Please see below. GENERAL: Pleasant and cooperative. No acute distress. HEENT: PERRL. Extraocular movements intact. Clear conjunctiva CARDIOVASCULAR: Regular rate and rhythm. No murmurs, rubs, or gallops LUNGS: Clear to auscultation bilaterally. No wheezes. No rhonchi ABDOMEN: Soft, nontender, nondistended. Positive bowel sounds. Normal active bowel sounds NEUROLOGICAL: Alert and oriented times three. Cranial nerves II through XII grossly intact. Sensation grossly intact to light touch all 4 extremities 3+ patellar reflexes (-) Hoffmans bilat (-) Clonus EXTREMITIES: 5\\5 strength bilateral upper extremities. 3/5 right hip flexors, knee extensors, 3/5 ankle DF and 3+/5 EHL, 4/5 plantar flexion left hip flexors 3+/5, 4/5 knee extension/ankle DF/EHL and plantar flexion mild atrophy RLE when compared to LLE +diminished pedal pulse on RLE SKIN: hyperpigmented lower calves R>L and feet, thigh hematoma, right anterior thigh ecchymosis ASSESSMENT:74-year-old M with past medical history of MS and Afib who presents hematoma of his right thigh s/p inguinal hernia repair with pneumonia and UTI. PLAN: 1. Rehab: PT- advance gait, strengthen bilat LE, work on endurance and balance training- avoid lifting >20 pounds OT- advance ADL management, especially transfers to commode at night to optimize self urinary care 2. [facility]: [facility] 3. cardio: pmh HTN, c/u Cozaar at 25mg daily, monitor for JODI 4. resp: diagnosed with LLL PNA s/p amoxicillin, Duonebs prn, and Guaifenesin, patient without cough, no leukocytosis -encourage incentive spirometry 5. GI: patient with liver lesion s/p biopsy- pathology negative for malignancy, positive for cirrhosis -(+) FOBT with intermittent melena with 2 polyps removed on recent colonoscopy, off AC, monitor -s/p inguinal hernia repair, will need /fu with surgery 6. 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 Endo: hx DM c/u metformin and ISS 8. : s/p Augmentin for E. Coli UTI- patient with recurrent UTIs, -Dr. Kilpatrick's recs appreciated, will d/c Augmentin and start prophylactic Macrobid -hx of BPH s/p TURP with retention, s/p inguinal hernia repair and partial res olution of constipation which may have been contributing to urinary retention, - c/u Flomax, mijares removed, voiding well so far -will refer for urodynamic studies at [place] where there is an SCI center who should be familiar with neurogenic bladder cases 9. Heme: monitor Hgb in setting of hx of hematuria and melena, transfuse if <8 10. Renal: hx of JODI, monitor while on Losartan-stable 11. Dispo: 07-06-19 to home, progressing towards goals Allergies Coded Allergies: gabapentin (Verified Adverse Reaction, Intermediate, elevates MS symptoms, 06/08/19) modafinil (Verified Adverse Reaction, Intermediate, elevate MS symptoms, 06/08/19) omeprazole (Verified Adverse Reaction, Intermediate, elevated MS symptoms, 06/08/19) Yjmuaog-Mco-Fep Reductase Inhibitor (Verified Adverse Reaction, Mild, "PASSES OUT", 06/08/19) glatiramer (copolymer 1) (Verified Adverse Reaction, Mild, weakness, 06/08/19) Vital Signs Vital Signs Date Time Temp Pulse Resp B/P (MAP) Pulse Ox O2 Delivery O2 Flow Rate FiO2 06/28/19 09:10 128/74 06/28/19 06:00 97.6 110 18 98 Room Air Laboratory Data CBC/BMP Laboratory Tests 06/28/19 06:50 Labs 24H Laboratory Tests 2 06/27/19 11:21: Bedside Glucose (Misc Panel) 101 06/27/19 16:37: Bedside Glucose (Misc Panel) 157H 06/27/19 20:44: Bedside Glucose (Misc Panel) 171H 06/28/19 06:48: Bedside Glucose (Misc Panel) 127H 06/28/19 06:50: Nucleated Red Blood Cells % (auto) 0.0 Current Medications Current Medications Current Medications Medications (Trade) Dose Ordered Sig/Avelino Route PRN Reason Start Time Stop Time Status Last Admin Dose Admin Acetaminophen (Tylenol Tab) 650 mg Q4HP PRN PO MILD PAIN (PS 1-4) 06/21/19 16:00 06/28/19 03:48 Albuterol/ Ipratropium (Duoneb (Ipr 0.5mg/Alb 2.5mg)) 3 ml RTID NEB 06/21/19 20:00 06/23/19 12:03 DC 06/23/19 07:24 Albuterol/ Ipratropium (Duoneb (Ipr 0.5mg/Alb 2.5mg)) 3 ml RTID PRN NEB WHEEZING 06/23/19 12:15 Amoxicillin (Amoxicillin) 875 mg BID PO 06/21/19 21:00 06/25/19 10:27 DC 06/25/19 08:25 Ascorbic Acid (Vitamin C) 500 mg DAILY PO 06/21/19 09:00 06/28/19 09:10 Baclofen (Lioresal) 5 mg TID PO 06/21/19 16:00 06/28/19 09:10 Calcium Carbonate (Tums) 500 mg DAILY PRN PO INDIGESTION 06/21/19 16:00 Dextrose (Dextrose 50%) 25 ml ASDIRECTED PRN IV SEE LABEL COMMENTS 06/21/19 16:00 Fluticasone Propionate (Flonase 0.05% Nasal [place]) 1 spray BID NARES 06/21/19 21:00 06/28/19 09:11 Furosemide (Lasix) 20 mg DAILY PO 06/23/19 09:00 06/24/19 10:30 DC 06/24/19 10:15 Glucagon (Glucagon) 1 mg ASDIRECTED PRN SC SEE LABEL COMMENTS 06/21/19 16:00 Glucose (Glucose) 16 GM ASDIRECTED PRN PO SEE LABEL COMMENTS 06/21/19 16:00 Guaifenesin (Robitussin Tab) 400 mg TID PO 06/21/19 16:00 06/28/19 09:10 Heparin Sodium (Porcine) (Heparin) 5,000 units Q12H SQ 06/22/19 21:00 06/28/19 09:10 Home Med (Med Rec Complete!) ASDIRECTED XX 06/21/19 15:30 06/21/19 15:27 DC Insulin Human Lispro (HumaLOG INSULIN) SEE PROTOCOL TABLE AC SC 06/21/19 17:30 06/28/19 09:10 Insulin Human Lispro (HumaLOG INSULIN) SEE PROTOCOL TABLE QHS [place] 06/21/19 21:00 Ipratropium [place] (Atrovent 0.03%) 2 spray BID NA 06/23/19 21:00 06/28/19 09:11 Lactobacillus Acidophilus (Bacid) 1 ea TID PO 06/25/19 16:00 06/25/19 10:35 DC Lactobacillus Acidophilus (Bacid) 1 ea TID PO 06/21/19 16:00 06/28/19 09:10 Lidocaine HCl (Lidocaine 2% Jelly) with each intermittent catheterization ASDIRECTED PRN TOP w/intermittent catheterization 06/23/19 14:00 Losartan Potassium (Cozaar) 25 mg DAILY PO 06/22/19 09:00 06/28/19 09:10 Metformin HCl (Glucophage) 500 mg DAILY@18 PO 06/24/19 18:00 06/27/19 17:12 Metformin HCl (Glucophage) 1,000 mg DAILY@18 PO 06/21/19 18:00 06/24/19 12:19 DC 06/23/19 16:56 Nitrofurantoin Monoh/Nitrofur Macro (Macrobid) 100 mg DAILY PO 06/25/19 12:00 06/27/19 08:30 Senna/Docusate Sodium (Senokot S) 1 tab BID PO 06/22/19 21:00 06/25/19 13:21 DC 06/25/19 08:24 Senna/Docusate Sodium (Senokot S) 2 tab BID PO 06/25/19 21:00 06/28/19 09:10 Senna/Docusate Sodium (Senokot S) 2 tab BID PO 06/21/19 21:00 06/22/19 16:23 DC 06/21/19 21:00 Sodium Chloride ([place] Nasal [place]) 2 spray QID NA 06/21/19 17:00 06/28/19 09:11 Tamsulosin HCl (Flomax) 0.4 mg QHS PO 06/21/19 21:00 06/27/19 20:54 Vitamin D (Vitamin D) 2,000 units QHS PO 06/21/19 21:00 06/27/19 20:54 KRISTINA CADENA MD Jun 28, 2019 09:51
[2019-06-28 14:00] VITALS: BP 156/84
[2019-06-28] MEDS: metFORMIN (GLUCOPHAGE) 500 MG TAB PO SCH (17:13)
[2019-06-28 20:00] VITALS: BP 154/83
[2019-06-28] MEDS: VITAMIN D 1,000 INTERNATIONAL UNITS TABLET PO SCH (20:25)
[2019-06-28] MEDS: TAMSULOSIN 0.4 MG CAP PO SCH (20:25)
[2019-06-29 06:00] VITALS: BP 152/61
[2019-06-29] MEDS: NITROFURANTOIN (MACROBID) 100 MG CAP PO SCH (07:52)
[2019-06-29] MEDS: BACLOFEN 5MG PER 1/2 TABLET PO SCH ×3 (07:52→20:55)
[2019-06-29] MEDS: HEPARIN SOD (PORCINE) 5000 UNITS/ML VIAL SQ SCH ×2 (07:52→20:57)
[2019-06-29] MEDS: SENOKOT S TAB PO SCH ×2 (07:52→20:55)
[2019-06-29] MEDS: HumaLOG INSULIN (NovoLOG) PER UNIT SC SCH ×4 (07:53→20:54)
[2019-06-29] MEDS: guaiFENesin 200 MG TAB PO SCH ×3 (07:53→20:55)
[2019-06-29] MEDS: ASCORBIC ACID 500 MG TAB PO SCH (07:53)
[2019-06-29] MEDS: LACTOBACILLUS ACIDOPHILUS CAP (BACID) PO SCH ×3 (07:53→20:55)
[2019-06-29] MEDS: LOSARTAN 25 MG TAB PO SCH (07:54)
[2019-06-29] MEDS: SODIUM CHLORIDE NASAL 0.65% SPRAY BTL (OCEAN) SCH ×4 (07:54→20:57)
[2019-06-29] MEDS: FLUTICASONE PROP 0.05% NASAL SPRAY 16 GM (FLONASE) NARES SCH ×2 (07:54→20:57)
[2019-06-29] MEDS: IPRATROPIUM 0.03% NASAL SPRAY 30 ML (ATROVENT) SCH ×2 (07:55→20:57)
--- NOTE | 2019-06-29 12:06 | IPNPDOC ---
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 He says he feels he is capable of taking care of his own meds. REVIEW OF SYSTEMS: The following is a completed review of systems and has been reviewed. Review of systems otherwise unremarkable. PAIN: Patient self reports no pain EYES: No recent vision changes EARS, NOSE, & THROAT: No throat pain, or dysphagia, or rhinorrhea CARDIOVASCULAR: Denies chest pain or palpitations PULMONARY: Denies shortness of breath GASTROINTESTINAL: +loose stools (improving) GENITOURINARY: retention with intermittent hematuria (resolved) MUSCULOSKELETAL: LE weakness, R>L NEUROLOGICAL:+MS HEMATOLOGICAL:+hematuria (intermittent), melena (intermittent), thigh hematoma (improving) SKIN: no rash PSYCHIATRIC: Unremarkable All other review of systems found to be negative. PHYSICAL EXAMINATION: VITAL SIGNS: Please see below. GENERAL: Pleasant and cooperative. No acute distress. HEENT: PERRL. Extraocular movements intact. Clear conjunctiva CARDIOVASCULAR: Regular rate and rhythm. No murmurs, rubs, or gallops LUNGS: Clear to auscultation bilaterally. No wheezes. No rhonchi ABDOMEN: Soft, nontender, nondistended. Positive bowel sounds. Normal active bowel sounds NEUROLOGICAL: Alert and oriented times three. Cranial nerves II through XII grossly intact. Sensation grossly intact to light touch all 4 extremities 3+ patellar reflexes (-) Hoffmans bilat (-) Clonus EXTREMITIES: 5\\5 strength bilateral upper extremities. 3/5 right hip flexors, knee extensors, 3/5 ankle DF and 3+/5 EHL, 4/5 plantar flexion left hip flexors 3+/5, 4/5 knee extension/ankle DF/EHL and plantar flexion mild atrophy RLE when compared to LLE +diminished pedal pulse on RLE SKIN: hyperpigmented lower calves R>L and feet, thigh hematoma, right anterior thigh ecchymosis ASSESSMENT:74-year-old M with past medical history of MS and Afib who presents hematoma of his right thigh s/p inguinal hernia repair with pneumonia and UTI. PLAN: 1. Rehab: PT- advance gait, strengthen bilat LE, work on endurance and balance training- avoid lifting >20 pounds OT- advance ADL management, especially transfers to commode at night to optimize self urinary care 2. [facility]: [facility] 3. cardio: pmh HTN, c/u Cozaar at 25mg daily, monitor for JODI 4. resp: diagnosed with LLL PNA s/p amoxicillin, Duonebs prn, and Guaifenesin, patient without cough, no leukocytosis -encourage incentive spirometry 5. GI: patient with liver lesion s/p biopsy- pathology negative for malignancy, positive for cirrhosis -(+) FOBT with intermittent melena with 2 polyps removed on recent colonoscopy, off AC, monitor -s/p inguinal hernia repair, will need /fu with surgery 6. 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 Endo: hx DM c/u metformin and ISS 8. : s/p Augmentin for E. Coli UTI- patient with recurrent UTIs, -Dr. Kilpatrick's recs appreciated, will d/c Augmentin and start prophylactic Macrobid -hx of BPH s/p TURP with retention, s/p inguinal hernia repair and partial resolution of constipation which may have been contributing to urinary retention, - c/u Flomax, mijares removed, voiding well -will refer for urodynamic studies at [place] where there is an SCI center who should be familiar with neurogenic bladder cases 9. Heme: monitor Hgb in setting of hx of hematuria and melena, transfuse if <8- stable 10. Renal: hx of JODI, monitor while on Losartan-stable 11. Dispo: 07-06-19 to home, progressing towards goals Allergies Coded Allergies: gabapentin (Verified Adverse Reaction, Intermediate, elevates MS symptoms, 06/08/19) modafinil (Verified Adverse Reaction, Intermediate, elevate MS symptoms, 06/08/19) omeprazole (Verified Adverse Reaction, Intermediate, elevated MS symptoms, 06/08/19) Dsrbtdv-Qli-Ovz Reductase Inhibitor (Verified Adverse Reaction, Mild, "PASSES OUT", 06/08/19) glatiramer (copolymer 1) (Verified Adverse Reaction, Mild, weakness, 06/08/19) Vital Signs Vital Signs Date Time Temp Pulse Resp B/P (MAP) Pulse Ox O2 Delivery O2 Flow Rate FiO2 06/29/19 07:54 152/61 06/29/19 06:00 97.6 84 18 97 Room Air Laboratory Data Labs 24H Laboratory Tests 2 06/28/19 16:31: Bedside Glucose (Misc Panel) 145H 06/28/19 20:12: Bedside Glucose (Misc Panel) 138H 06/29/19 06:48: Bedside Glucose (Misc Panel) 135H 06/29/19 11:54: Bedside Glucose (Misc Panel) 93 Current Medications Current Medications Current Medications Medications (Trade) Dose Ordered Sig/Avelino Route PRN Reason Start Time Stop Time Status Last Admin Dose Admin Acetaminophen (Tylenol Tab) 650 mg Q4HP PRN PO MILD PAIN (PS 1-4) 06/21/19 16:00 06/28/19 03:48 Albuterol/ Ipratropium (Duoneb (Ipr 0.5mg/Alb 2.5mg)) 3 ml RTID NEB 06/21/19 20:00 06/23/19 12:03 DC 06/23/19 07:24 Albuterol/ Ipratropium (Duoneb (Ipr 0.5mg/Alb 2.5mg)) 3 ml RTID PRN NEB WHEEZING 06/23/19 12:15 Amoxicillin (Amoxicillin) 875 mg BID PO 06/21/19 21:00 06/25/19 10:27 DC 06/25/19 08:25 Ascorbic Acid (Vitamin C) 500 mg DAILY PO 06/21/19 09:00 06/29/19 07:53 Baclofen (Lioresal) 5 mg TID PO 06/21/19 16:00 06/29/19 07:52 Calcium Carbonate (Tums) 500 mg DAILY PRN PO INDIGESTION 06/21/19 16:00 Dextrose (Dextrose 50%) 25 ml ASDIRECTED PRN IV SEE LABEL COMMENTS 06/21/19 16:00 Fluticasone Propionate (Flonase 0.05% Nasal [place]) 1 spray BID NARES 06/21/19 21:00 06/29/19 07:54 Furosemide (Lasix) 20 mg DAILY PO 06/23/19 09:00 06/24/19 10:30 DC 06/24/19 10:15 Glucagon (Glucagon) 1 mg ASDIRECTED PRN SC SEE LABEL COMMENTS 06/21/19 16:00 Glucose (Glucose) 16 GM ASDIRECTED PRN PO SEE LABEL COMMENTS 06/21/19 16:00 Guaifenesin (Robitussin Tab) 400 mg TID PO 06/21/19 16:00 06/29/19 07:53 Heparin Sodium (Porcine) (Heparin) 5,000 units Q12H SQ 06/22/19 21:00 06/29/19 07:52 Home Med (Med Rec Complete!) ASDIRECTED XX 06/21/19 15:30 06/21/19 15:27 DC Insulin Human Lispro (HumaLOG INSULIN) SEE PROTOCOL TABLE AC SC 06/21/19 17:30 06/29/19 07:53 Insulin Human Lispro (HumaLOG INSULIN) SEE PROTOCOL TABLE QHS NC 06/21/19 21:00 Ipratropium [place] (Atrovent 0.03%) 2 spray BID NA 06/23/19 21:00 06/29/19 07:55 Lactobacillus Acidophilus (Bacid) 1 ea TID PO 06/25/19 16:00 06/25/19 10:35 DC Lactobacillus Acidophilus (Bacid) 1 ea TID PO 06/21/19 16:00 06/29/19 07:53 Lidocaine HCl (Lidocaine 2% Jelly) with each intermittent catheterization ASDIRECTED PRN TOP w/intermittent catheterization 06/23/19 14:00 Losartan Potassium (Cozaar) 25 mg DAILY PO 06/22/19 09:00 06/29/19 07:54 Metformin HCl (Glucophage) 500 mg DAILY@18 PO 06/24/19 18:00 06/28/19 17:13 Metformin HCl (Glucophage) 1,000 mg DAILY@18 PO 06/21/19 18:00 06/24/19 12:19 DC 06/23/19 16:56 Miscellaneous (Unresolved Clarification Entry) SEE LABEL COMMENTS DAILY XX 06/29/19 09:00 06/29/19 10:08 DC Nitrofurantoin Monoh/Nitrofur Macro (Macrobid) 100 mg DAILY PO 06/25/19 12:00 06/29/19 07:52 Senna/Docusate Sodium (Senokot S) 1 tab BID PO 06/22/19 21:00 06/25/19 13:21 DC 06/25/19 08:24 Senna/Docusate Sodium (Senokot S) 2 tab BID PO 06/25/19 21:00 06/29/19 07:52 Senna/Docusate Sodium (Senokot S) 2 tab BID PO 06/21/19 21:00 06/22/19 16:23 DC 06/21/19 21:00 Sodium Chloride ([place] Nasal [place]) 2 spray QID NA 06/21/19 17:00 06/29/19 07:54 Tamsulosin HCl (Flomax) 0.4 mg QHS PO 06/21/19 21:00 06/28/19 20:25 Vitamin D (Vitamin D) 2,000 units QHS PO 06/21/19 21:00 06/28/19 20:25 KRISTINA CADENA MD Jun 29, 2019 12:06
[2019-06-29 14:00] VITALS: BP 144/78
[2019-06-29] MEDS: metFORMIN (GLUCOPHAGE) 500 MG TAB PO SCH (17:47)
[2019-06-29 20:00] VITALS: BP 150/82
[2019-06-29] MEDS: VITAMIN D 1,000 INTERNATIONAL UNITS TABLET PO SCH (20:55)
[2019-06-29] MEDS: TAMSULOSIN 0.4 MG CAP PO SCH (21:57)
[2019-06-30 06:00] VITALS: BP 127/77
[2019-06-30] MEDS: HEPARIN SOD (PORCINE) 5000 UNITS/ML VIAL SQ SCH ×2 (08:11→20:55)
[2019-06-30] MEDS: ASCORBIC ACID 500 MG TAB PO SCH (08:12)
[2019-06-30] MEDS: SENOKOT S TAB PO SCH ×2 (08:12→20:53)
[2019-06-30] MEDS: NITROFURANTOIN (MACROBID) 100 MG CAP PO SCH (08:12)
[2019-06-30] MEDS: HumaLOG INSULIN (NovoLOG) PER UNIT SC SCH ×4 (08:12→20:54)
[2019-06-30] MEDS: LACTOBACILLUS ACIDOPHILUS CAP (BACID) PO SCH ×3 (08:12→20:53)
[2019-06-30] MEDS: BACLOFEN 5MG PER 1/2 TABLET PO SCH ×3 (08:12→20:53)
[2019-06-30] MEDS: guaiFENesin 200 MG TAB PO SCH ×3 (08:12→20:54)
[2019-06-30] MEDS: FLUTICASONE PROP 0.05% NASAL SPRAY 16 GM (FLONASE) NARES SCH ×2 (08:13→20:53)
[2019-06-30] MEDS: SODIUM CHLORIDE NASAL 0.65% SPRAY BTL (OCEAN) SCH ×4 (08:13→20:53)
[2019-06-30] MEDS: LOSARTAN 25 MG TAB PO SCH (08:13)
[2019-06-30 08:37] LABS: BASO # 0.1 10^3/uL (0.0-0.2); BASO % 1.1 % (0.0-1.0); EOS # 0.1 10^3/uL (0.0-0.5); EOS % 2.2 % (0.0-3.0); HEMATOCRIT 42.1 % (42.0-52.0); LYMPH # 1.8 10^3/uL (1.5-5.0); LYMPH % 37.8 % (24.0-44.0); MEAN CORPUSCULAR HEMOGLOBIN 30.4 pg (27.0-33.0); MEAN CORPUSCULAR HGB CONC 30.9 g/dl (32.0-36.5); MEAN CORPUSCULAR VOLUME 98.6 fl (80.0-96.0); MONO # 0.3 10^3/uL (0.0-0.8); MONO % 6.5 % (0.0-5.0); NEUTROPHILS # 2.4 10^3/uL (1.5-8.5); PLATELET COUNT, AUTOMATED 365 10^3/uL (150-450); RED BLOOD COUNT 4.27 10^6/uL (4.30-6.10); WHITE BLOOD COUNT 4.6 10^3/uL (4.0-10.0)
[2019-06-30 09:04] LABS: BLOOD UREA NITROGEN 26 MG/DL (7-18); CALCIUM LEVEL 9.3 MG/DL (8.8-10.2); CARBON DIOXIDE LEVEL 28 MEQ/L (21-32); CHLORIDE LEVEL 104 MEQ/L (98-107); CREATININE FOR GFR 1.14 MG/DL (0.70-1.30); GLOMERULAR FILTRATION RATE > 60.0 (>42); GLUCOSE, FASTING 250 MG/DL (70-100); POTASSIUM SERUM 4.1 MEQ/L (3.5-5.1); SODIUM LEVEL 138 MEQ/L (136-145)
[2019-06-30] MEDS ORDERED: GLUC500T PO (10:33)
[2019-06-30] MEDS ORDERED: COZA1TAB PO (10:33)
[2019-06-30] MEDS ORDERED: RISATAB3 PO (10:33)
[2019-06-30] MEDS ORDERED: FLOM0.4C39 PO (10:33)
[2019-06-30] MEDS ORDERED: IPRA3SP (10:33)
[2019-06-30] MEDS ORDERED: BACL10TA2 PO (10:33)
[2019-06-30] MEDS ORDERED: FLUTISP NARES (10:33)
[2019-06-30] MEDS ORDERED: NITR100C2 PO (10:33)
--- NOTE | 2019-06-30 10:49 | IPNPDOC ---
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 [facility] so that [facility] can be [facility]. REVIEW OF SYSTEMS: The following is a completed review of systems and has been reviewed. Review of systems otherwise unremarkable. PAIN: Patient self reports no pain EYES: No recent vision changes EARS, NOSE, & THROAT: No throat pain, or dysphagia, or rhinorrhea CARDIOVASCULAR: Denies chest pain or palpitations PULMONARY: Denies shortness of breath GASTROINTESTINAL: denies diarrhea/constipation GENITOURINARY: retention with intermittent hematuria (resolved) MUSCULOSKELETAL: LE weakness, R>L NEUROLOGICAL:+MS HEMATOLOGICAL:+hematuria (intermittent), melena (intermittent), thigh hematoma (improving) SKIN: no rash PSYCHIATRIC: Unremarkable All other review of systems found to be negative. PHYSICAL EXAMINATION: VITAL SIGNS: Please see below. GENERAL: Pleasant and cooperative. No acute distress. HEENT: PERRL. Extraocular movements intact. Clear conjunctiva CARDIOVASCULAR: Regular rate and rhythm. No murmurs, rubs, or gallops LUNGS: Clear to auscultation bilaterally. No wheezes. No rhonchi ABDOMEN: Soft, nontender, nondistended. Positive bowel sounds. Normal active b owel sounds NEUROLOGICAL: Alert and oriented times three. Cranial nerves II through XII grossly intact. Sensation grossly intact to light touch all 4 extremities 3+ patellar reflexes (-) Hoffmans bilat (-) Clonus EXTREMITIES: 5\\5 strength bilateral upper extremities. 3/5 right hip flexors, knee extensors, 3/5 ankle DF and 3+/5 EHL, 4/5 plantar flexion left hip flexors 3+/5, 4/5 knee extension/ankle DF/EHL and plantar flexion mild atrophy RLE when compared to LLE +diminished pedal pulse on RLE +edema right ankle SKIN: hyperpigmented lower calves R>L and feet, thigh hematoma, right anterior thigh ecchymosis (improving) ASSESSMENT:74-year-old M with past medical history of MS and Afib who presents hematoma of his right thigh s/p inguinal hernia repair with pneumonia and UTI. PLAN: 1. Rehab: PT- advance gait, strengthen bilat LE, work on endurance and balance training- avoid lifting >20 pounds OT- advance ADL management, especially transfers to commode at night to optimize self urinary care 2. Neuro: [facility] 3. cardio: pmh HTN, c/u Cozaar at 25mg daily, monitor for JODI 4. resp: diagnosed with LLL PNA s/p amoxicillin, Duonebs prn, and Guaifenesin, patient without cough, no leukocytosis -encourage incentive spirometry 5. GI: patient with liver lesion s/p biopsy- pathology negative for malignancy, positive for cirrhosis -(+) FOBT with intermittent melena with 2 polyps removed on recent colonoscopy, off AC, monitor -s/p inguinal hernia repair, will need /fu with surgery 6. 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 Endo: hx DM c/u metformin and ISS 8. : s/p Augmentin for E. Coli UTI- patient with recurrent UTIs, -Dr. Kilpatrick's recs appreciated, will d/c Augmentin - c/u prophylactic Macrobid -hx of BPH s/p TURP with retention, s/p inguinal hernia repair and partial resolution of constipation which may have been contributing to urinary retention, - c/u Flomax, mijares removed, voiding well -recommending urodynamic studies at [place] where there is an SCI center who should be familiar with neurogenic bladder cases- referral sent 9. Heme: monitor Hgb in setting of hx of hematuria and melena, transfuse if <8- stable 10. Renal: hx of JODI, monitor while on Losartan-stable 11. Extremity- RLE edema likely dependent due to right thigh hematoma, c/u Acerwap, patient encouraged to keep elevated at night 11. Dispo: 07-06-19 to home, progressing towards goals Allergies Coded Allergies: gabapentin (Verified Adverse Reaction, Intermediate, elevates MS symptoms, 06/08/19) modafinil (Verified Adverse Reaction, Intermediate, elevate MS symptoms, 06/08/19) omeprazole (Verified Adverse Reaction, Intermediate, elevated MS symptoms, 06/08/19) Rihgnhb-Gyf-Gfw Reductase Inhibitor (Verified Adverse Reaction, Mild, "PASSES OUT", 06/08/19) glatiramer (copolymer 1) (Verified Adverse Reaction, Mild, weakness, 06/08/19) Vital Signs Vital Signs Date Time Temp Pulse Resp B/P (MAP) Pulse Ox O2 Delivery O2 Flow Rate FiO2 06/30/19 08:13 127/77 06/30/19 06:00 98.0 82 19 98 Room Air Laboratory Data CBC/BMP Laboratory Tests 06/30/19 08:19 Labs 24H Laboratory Tests 2 06/29/19 11:54: Bedside Glucose (Misc Panel) 93 06/29/19 16:54: Bedside Glucose (Misc Panel) 128H 06/29/19 20:46: Bedside Glucose (Misc Panel) 136H 06/30/19 06:42: Bedside Glucose (Misc Panel) 122H 06/30/19 08:19: Immature Granulocyte % (Auto) 0.4, Neutrophils (%) (Auto) 52.0, Lymphocytes (%) (Auto) 37.8, Monocytes (%) (Auto) 6.5H, Eosinophils (%) (Auto) 2.2, Basophils (%) (Auto) 1.1H, Neutrophils # (Auto) 2.4, Lymphocytes # (Auto) 1.8, Monocytes # (Auto) 0.3, Eosinophils # (Auto) 0.1, Basophils # (Auto) 0.1, Nucleated Red Blood Cells % (auto) 0.0, Anion Gap 6L, Glomerular Filtration Rate > 60.0, Calcium Level 9.3 Current Medications Current Medications Current Medications Medications (Trade) Dose Ordered Sig/Avelino Route PRN Reason Start Time Stop Time Status Last Admin Dose Admin Acetaminophen (Tylenol Tab) 650 mg Q4HP PRN PO MILD PAIN (PS 1-4) 06/21/19 16:00 06/28/19 03:48 Albuterol/ Ipratropium (Duoneb (Ipr 0.5mg/Alb 2.5mg)) 3 ml RTID NEB 06/21/19 20:00 06/23/19 12:03 DC 06/23/19 07:24 Albuterol/ Ipratropium (Duoneb (Ipr 0.5mg/Alb 2.5mg)) 3 ml RTID PRN NEB WHEEZING 06/23/19 12:15 Amoxicillin (Amoxicillin) 875 mg BID PO 06/21/19 21:00 06/25/19 10:27 DC 06/25/19 08:25 Ascorbic Acid (Vitamin C) 500 mg DAILY PO 06/21/19 09:00 06/30/19 08:12 Baclofen (Lioresal) 5 mg TID PO 06/21/19 16:00 06/30/19 08:12 Calcium Carbonate (Tums) 500 mg DAILY PRN PO INDIGESTION 06/21/19 16:00 Dextrose (Dextrose 50%) 25 ml ASDIRECTED PRN IV SEE LABEL COMMENTS 06/21/19 16:00 Fluticasone Propionate (Flonase 0.05% Nasal [place]) 1 spray BID NARES 06/21/19 21:00 06/30/19 08:13 Furosemide (Lasix) 20 mg DAILY PO 06/23/19 09:00 06/24/19 10:30 DC 06/24/19 10:15 Glucagon (Glucagon) 1 mg ASDIRECTED PRN SC SEE LABEL COMMENTS 06/21/19 16:00 Glucose (Glucose) 16 GM ASDIRECTED PRN PO SEE LABEL COMMENTS 06/21/19 16:00 Guaifenesin (Robitussin Tab) 400 mg TID PO 06/21/19 16:00 06/30/19 08:12 Heparin Sodium (Porcine) (Heparin) 5,000 units Q12H SQ 06/22/19 21:00 06/30/19 08:11 Home Med (Med Rec Complete!) ASDIRECTED XX 06/21/19 15:30 06/21/19 15:27 DC Insulin Human Lispro (HumaLOG INSULIN) SEE PROTOCOL TABLE AC SC 06/21/19 17:30 06/30/19 08:12 Insulin Human Lispro (HumaLOG INSULIN) SEE PROTOCOL TABLE QHS SC 06/21/19 21:00 Ipratropium [place] (Atrovent 0.03%) 2 spray BID NA 06/23/19 21:00 06/29/19 20:57 Lactobacillus Acidophilus (Bacid) 1 ea TID PO 06/25/19 16:00 06/25/19 10:35 DC Lactobacillus Acidophilus (Bacid) 1 ea TID PO 06/21/19 16:00 06/30/19 08:12 Lidocaine HCl (Lidocaine 2% Jelly) with each intermittent catheterization ASDIRECTED PRN TOP w/intermittent catheterization 06/23/19 14:00 Losartan Potassium (Cozaar) 25 mg DAILY PO 06/22/19 09:00 06/30/19 08:13 Metformin HCl (Glucophage) 500 mg DAILY@18 PO 06/24/19 18:00 06/29/19 17:47 Metformin HCl (Glucophage) 1,000 mg DAILY@18 PO 06/21/19 18:00 06/24/19 12:19 DC 06/23/19 16:56 Miscellaneous (Unresolved Clarification Entry) SEE LABEL COMMENTS DAILY XX 06/29/19 09:00 06/29/19 10:08 DC Nitrofurantoin Monoh/Nitrofur Macro (Macrobid) 100 mg DAILY PO 06/25/19 12:00 06/30/19 08:12 Senna/Docusate Sodium (Senokot S) 1 tab BID PO 06/22/19 21:00 06/25/19 13:21 DC 06/25/19 08:24 Senna/Docusate Sodium (Senokot S) 2 tab BID PO 06/25/19 21:00 06/30/19 08:12 Senna/Docusate Sodium (Senokot S) 2 tab BID PO 06/21/19 21:00 06/22/19 16:23 DC 06/21/19 21:00 Sodium Chloride ([place] Nasal [place]) 2 spray QID NA 06/21/19 17:00 06/30/19 08:13 Tamsulosin HCl (Flomax) 0.4 mg QHS PO 06/21/19 21:00 06/29/19 21:57 Vitamin D (Vitamin D) 2,000 units QHS PO 06/21/19 21:00 06/29/19 20:55 KRISTINA CADENA MD Jun 30, 2019 10:49
[2019-06-30 14:00] VITALS: BP 115/64
[2019-06-30] MEDS: metFORMIN (GLUCOPHAGE) 500 MG TAB PO SCH (17:25)
[2019-06-30 20:00] VITALS: BP 143/72
[2019-06-30] MEDS: IPRATROPIUM 0.03% NASAL SPRAY 30 ML (ATROVENT) SCH (20:52)
[2019-06-30] MEDS: TAMSULOSIN 0.4 MG CAP PO SCH (20:53)
[2019-06-30] MEDS: VITAMIN D 1,000 INTERNATIONAL UNITS TABLET PO SCH (20:54)
[2019-07-01 06:00] VITALS: BP 123/77
[2019-07-01 07:06] LABS: BASO # 0.1 10^3/uL (0.0-0.2); BASO % 0.9 % (0.0-1.0); EOS # 0.1 10^3/uL (0.0-0.5); EOS % 2.5 % (0.0-3.0); HEMATOCRIT 39.4 % (42.0-52.0); HEMOGLOBIN 12.5 g/dl (13.5-17.5); LYMPH # 2.5 10^3/uL (1.5-5.0); LYMPH % 44.2 % (24.0-44.0); MEAN CORPUSCULAR HEMOGLOBIN 30.9 pg (27.0-33.0); MEAN CORPUSCULAR HGB CONC 31.7 g/dl (32.0-36.5); MEAN CORPUSCULAR VOLUME 97.5 fl (80.0-96.0); MONO # 0.5 10^3/uL (0.0-0.8); NEUTROPHILS # 2.5 10^3/uL (1.5-8.5); PLATELET COUNT, AUTOMATED 365 10^3/uL (150-450); RED BLOOD COUNT 4.04 10^6/uL (4.30-6.10); WHITE BLOOD COUNT 5.7 10^3/uL (4.0-10.0)
[2019-07-01 07:33] LABS: BLOOD UREA NITROGEN 26 MG/DL (7-18); CALCIUM LEVEL 9.5 MG/DL (8.8-10.2); CARBON DIOXIDE LEVEL 27 MEQ/L (21-32); CHLORIDE LEVEL 108 MEQ/L (98-107); CREATININE FOR GFR 1.13 MG/DL (0.70-1.30); GLOMERULAR FILTRATION RATE > 60.0 (>42); GLUCOSE, FASTING 128 MG/DL (70-100); POTASSIUM SERUM 4.3 MEQ/L (3.5-5.1); SODIUM LEVEL 141 MEQ/L (136-145)
[2019-07-01] MEDS: LACTOBACILLUS ACIDOPHILUS CAP (BACID) PO SCH ×3 (09:12→20:23)
[2019-07-01] MEDS: guaiFENesin 200 MG TAB PO SCH ×3 (09:12→20:23)
[2019-07-01] MEDS: BACLOFEN 5MG PER 1/2 TABLET PO SCH ×3 (09:12→20:23)
[2019-07-01] MEDS: NITROFURANTOIN (MACROBID) 100 MG CAP PO SCH (09:12)
[2019-07-01] MEDS: LOSARTAN 25 MG TAB PO SCH (09:13)
[2019-07-01] MEDS: ASCORBIC ACID 500 MG TAB PO SCH (09:13)
[2019-07-01] MEDS: FLUTICASONE PROP 0.05% NASAL SPRAY 16 GM (FLONASE) NARES SCH ×2 (09:14→20:24)
[2019-07-01] MEDS: SENOKOT S TAB PO SCH (09:14)
[2019-07-01] MEDS: SODIUM CHLORIDE NASAL 0.65% SPRAY BTL (OCEAN) SCH ×4 (09:14→20:24)
[2019-07-01] MEDS: HEPARIN SOD (PORCINE) 5000 UNITS/ML VIAL SQ SCH ×2 (09:14→20:23)
[2019-07-01] MEDS: IPRATROPIUM 0.03% NASAL SPRAY 30 ML (ATROVENT) SCH ×2 (09:15→20:23)
[2019-07-01] MEDS: HumaLOG INSULIN (NovoLOG) PER UNIT SC SCH ×4 (09:16→20:22)
--- NOTE | 2019-07-01 10:14 | IPNPDOC ---
PM&R Progress Note DATE OF SERVICE: Jul 01, 2019 Video Specialist Progress Note Subjective: Patient asking to be put back on his home bowel regimen as this works for him well. He is wondering if he can go home Friday. REVIEW OF SYSTEMS: The following is a completed review of systems and has been reviewed. Review of systems otherwise unremarkable. PAIN: Patient self reports no pain EYES: No recent vision changes EARS, NOSE, & THROAT: No throat pain, or dysphagia, or rhinorrhea CARDIOVASCULAR: Denies chest pain or palpitations PULMONARY: Denies shortness of breath GASTROINTESTINAL: denies diarrhea/constipation GENITOURINARY: retention with intermittent hematuria (resolved) MUSCULOSKELETAL: LE weakness, R>L NEUROLOGICAL:+MS HEMATOLOGICAL:+hematuria (intermittent), melena (intermittent), thigh hematoma (improving) SKIN: no rash PSYCHIATRIC: Unremarkable All other review of systems found to be negative. PHYSICAL EXAMINATION: VITAL SIGNS: Please see below. GENERAL: Pleasant and cooperative. No acute distress. HEENT: PERRL. Extraocular movements intact. Clear conjunctiva CARDIOVASCULAR: Regular rate and rhythm. No murmurs, rubs, or gallops LUNGS: Clear to auscultation bilaterally. No wheezes. No rhonchi ABDOMEN: Soft, nontender, nondistended. Positive bowel sounds. Normal active bowel sounds NEUROLOGICAL: Alert and oriented times three. Cranial nerves II through XII grossly intact. Sensation grossly intact to light touch all 4 extremities 3+ patellar reflexes (-) Hoffmans bilat (-) Clonus EXTREMITIES: 5\\5 strength bilateral upper extremities. 3/5 right hip flexors, knee extensors, 3/5 ankle DF and 3+/5 EHL, 4/5 plantar flexion left hip flexors 3+/5, 4/5 knee extension/ankle DF/EHL and plantar flexion mild atrophy RLE when compared to LLE +diminished pedal pulse on RLE +edema right ankle (improving) SKIN: hyperpigmented lower calves R>L and feet, thigh hematoma, right anterior thigh ecchymosis (improving) ASSESSMENT:74-year-old M with past medical history of MS and Afib who presents hematoma of his right thigh s/p inguinal hernia repair with pneumonia and UTI. PLAN: 1. Rehab: PT- advance gait, strengthen bilat LE, work on endurance and balance training- avoid lifting >20 pounds OT- advance ADL management, especially transfers to commode at night to optimize self urinary care 2. [facility] 3. cardio: pmh HTN, c/u Cozaar at 25mg daily, monitor for JODI 4. resp: diagnosed with LLL PNA s/p amoxicillin, Duonebs prn, and Guaifenesin, patient without cough, no leukocytosis -encourage incentive spirometry 5. GI: patient with liver lesion s/p biopsy- pathology negative for malignancy, positive for cirrhosis -(+) FOBT with intermittent melena with 2 polyps removed on recent colonoscopy, off AC, monitor -s/p inguinal hernia repair, will need /fu with surgery 6. 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 Endo: hx DM c/u metformin and ISS 8. : s/p Augmentin for E. Coli UTI- patient with recurrent UTIs, -Dr. Kilpatrick's recs appreciated, will d/c Augmentin - c/u prophylactic Macrobid -hx of BPH s/p TURP with retention, s/p inguinal hernia repair and partial resolution of constipation which may have been contributing to urinary retention, - c/u Flomax, mijares removed, voiding well -recommending urodynamic studies at [place] where there is an SCI center who should be familiar with neurogenic bladder cases- referral sent 9. Heme: monitor Hgb in setting of hx of hematuria and melena, transfuse if <8- stable 10. Renal: hx of JODI, monitor while on Losartan-stable 11. Extremity- RLE edema likely dependent due to right thigh hematoma, c/u Acerwap, patient encouraged to keep elevated at night 11. Dispo: 07-06-19 to home, progressing towards goals Allergies Coded Allergies: gabapentin (Verified Adverse Reaction, Intermediate, elevates MS symptoms, 06/08/19) modafinil (Verified Adverse Reaction, Intermediate, elevate MS symptoms, 06/08/19) omeprazole (Verified Adverse Reaction, Intermediate, elevated MS symptoms, 06/08/19) Dbuoewf-Euk-Ppd Reductase Inhibitor (Verified Adverse Reaction, Mild, "PASSES OUT", 06/08/19) glatiramer (copolymer 1) (Verified Adverse Reaction, Mild, weakness, 06/08/19) Vital Signs Vital Signs Date Time Temp Pulse Resp B/P (MAP) Pulse Ox O2 Delivery O2 Flow Rate FiO2 07/01/19 09:13 123/77 07/01/19 06:00 98.4 83 18 99 Room Air Laboratory Data CBC/BMP Laboratory Tests 07/01/19 06:41 Labs 24H Laboratory Tests 2 06/30/19 11:35: Bedside Glucose (Misc Panel) 98 06/30/19 16:24: Bedside Glucose (Misc Panel) 155H 06/30/19 20:00: Bedside Glucose (Misc Panel) 188H 07/01/19 06:41: Immature Granulocyte % (Auto) 0.4, Neutrophils (%) (Auto) 44.0, Lymphocytes (%) (Auto) 44.2H, Monocytes (%) (Auto) 8.0H, Eosinophils (%) (Auto) 2.5, Basophils (%) (Auto) 0.9, Neutrophils # (Auto) 2.5, Lymphocytes # (Auto) 2.5, Monocytes # (Auto) 0.5, Eosinophils # (Auto) 0.1, Basophils # (Auto) 0.1, Nucleated Red Blood Cells % (auto) 0.0, Anion Gap 6L, Glomerular Filtration Rate > 60.0, Calcium Level 9.5 Current Medications Current Medications Current Medications Medications (Trade) Dose Ordered Sig/Avelino Route PRN Reason Start Time Stop Time Status Last Admin Dose Admin Acetaminophen (Tylenol Tab) 650 mg Q4HP PRN PO MILD PAIN (PS 1-4) 06/21/19 16:00 06/28/19 03:48 Albuterol/ Ipratropium (Duoneb (Ipr 0.5mg/Alb 2.5mg)) 3 ml RTID NEB 06/21/19 20:00 06/23/19 12:03 DC 06/23/19 07:24 Albuterol/ Ipratropium (Duoneb (Ipr 0.5mg/Alb 2.5mg)) 3 ml RTID PRN NEB WHEEZING 06/23/19 12:15 Amoxicillin (Amoxicillin) 875 mg BID PO 06/21/19 21:00 06/25/19 10:27 DC 06/25/19 08:25 Ascorbic Acid (Vitamin C) 500 mg DAILY PO 06/21/19 09:00 07/01/19 09:13 Baclofen (Lioresal) 5 mg TID PO 06/21/19 16:00 07/01/19 09:12 Calcium Carbonate (Tums) 500 mg DAILY PRN PO INDIGESTION 06/21/19 16:00 Dextrose (Dextrose 50%) 25 ml ASDIRECTED PRN IV SEE LABEL COMMENTS 06/21/19 16:00 Fluticasone Propionate (Flonase 0.05% Nasal [place]) 1 spray BID NARES 06/21/19 21:00 07/01/19 09:14 Furosemide (Lasix) 20 mg DAILY PO 06/23/19 09:00 06/24/19 10:30 DC 06/24/19 10:15 Glucagon (Glucagon) 1 mg ASDIRECTED PRN SC SEE LABEL COMMENTS 06/21/19 16:00 Glucose (Glucose) 16 GM ASDIRECTED PRN PO SEE LABEL COMMENTS 06/21/19 16:00 Guaifenesin (Robitussin Tab) 400 mg TID PO 06/21/19 16:00 07/01/19 09:12 Heparin Sodium (Porcine) (Heparin) 5,000 units Q12H SQ 06/22/19 21:00 07/01/19 09:14 Home Med (Med Rec Complete!) ASDIRECTED XX 06/21/19 15:30 06/21/19 15:27 DC Insulin Human Lispro (HumaLOG INSULIN) SEE PROTOCOL TABLE AC SC 06/21/19 17:30 07/01/19 09:16 Insulin Human Lispro (HumaLOG INSULIN) SEE PROTOCOL TABLE QHS SC 06/21/19 21:00 Ipratropium [place] (Atrovent 0.03%) 2 spray BID NA 06/23/19 21:00 07/01/19 09:15 Lactobacillus Acidophilus (Bacid) 1 ea TID PO 06/25/19 16:00 06/25/19 10:35 DC Lactobacillus Acidophilus (Bacid) 1 ea TID PO 06/21/19 16:00 07/01/19 09:12 Lidocaine HCl (Lidocaine 2% Jelly) with each intermittent catheterization ASDIRECTED PRN TOP w/intermittent catheterization 06/23/19 14:00 Losartan Potassium (Cozaar) 25 mg DAILY PO 06/22/19 09:00 07/01/19 09:13 Metformin HCl (Glucophage) 500 mg DAILY@18 PO 06/24/19 18:00 06/30/19 17:25 Metformin HCl (Glucophage) 1,000 mg DAILY@18 PO 06/21/19 18:00 06/24/19 12:19 DC 06/23/19 16:56 Miscellaneous (Unresolved Clarification Entry) SEE LABEL COMMENTS DAILY XX 06/29/19 09:00 06/29/19 10:08 DC Nitrofurantoin Monoh/Nitrofur Macro (Macrobid) 100 mg DAILY PO 06/25/19 12:00 07/01/19 09:12 Senna/Docusate Sodium (Senokot S) 1 tab BID PO 06/22/19 21:00 06/25/19 13:21 DC 06/25/19 08:24 Senna/Docusate Sodium (Senokot S) 2 tab BID PO 06/25/19 21:00 07/01/19 09:14 Senna/Docusate Sodium (Senokot S) 2 tab BID PO 06/21/19 21:00 06/22/19 16:23 DC 06/21/19 21:00 Sodium Chloride ([place] Nasal [place]) 2 spray QID NA 06/21/19 17:00 07/01/19 09:14 Tamsulosin HCl (Flomax) 0.4 mg QHS PO 06/21/19 21:00 06/30/19 20:53 Vitamin D (Vitamin D) 2,000 units QHS PO 06/21/19 21:00 06/30/19 20:54 KRISTINA CADENA MD Jul 01, 2019 10:14
[2019-07-01] MEDS: MIRALAX *UNIT DOSE* 17GM PACKET PO SCH (10:15)
[2019-07-01 14:00] VITALS: BP 146/84
[2019-07-01] MEDS: metFORMIN (GLUCOPHAGE) 500 MG TAB PO SCH (17:39)
[2019-07-01 20:00] VITALS: BP 138/64
[2019-07-01] MEDS: VITAMIN D 1,000 INTERNATIONAL UNITS TABLET PO SCH (20:22)
[2019-07-01] MEDS: TAMSULOSIN 0.4 MG CAP PO SCH (20:22)
[2019-07-01] MEDS: DOCUSATE SODIUM 100 MG CAP PO SCH (20:22)
[2019-07-02 05:13] VITALS: BP 122/68
[2019-07-02] MEDS: HEPARIN SOD (PORCINE) 5000 UNITS/ML VIAL SQ SCH ×2 (07:50→20:19)
[2019-07-02] MEDS: MIRALAX *UNIT DOSE* 17GM PACKET PO SCH (07:50)
[2019-07-02] MEDS: HumaLOG INSULIN (NovoLOG) PER UNIT SC SCH ×4 (07:51→20:10)
[2019-07-02] MEDS: DOCUSATE SODIUM 100 MG CAP PO SCH ×2 (07:51→20:19)
[2019-07-02] MEDS: ASCORBIC ACID 500 MG TAB PO SCH (07:52)
[2019-07-02] MEDS: NITROFURANTOIN (MACROBID) 100 MG CAP PO SCH (07:52)
[2019-07-02] MEDS: BACLOFEN 5MG PER 1/2 TABLET PO SCH ×3 (07:52→20:18)
[2019-07-02] MEDS: guaiFENesin 200 MG TAB PO SCH ×3 (07:52→19:58)
[2019-07-02] MEDS: LACTOBACILLUS ACIDOPHILUS CAP (BACID) PO SCH ×3 (07:52→20:18)
[2019-07-02] MEDS: LOSARTAN 25 MG TAB PO SCH (07:54)
[2019-07-02] MEDS: SODIUM CHLORIDE NASAL 0.65% SPRAY BTL (OCEAN) SCH ×4 (07:54→20:20)
[2019-07-02] MEDS: FLUTICASONE PROP 0.05% NASAL SPRAY 16 GM (FLONASE) NARES SCH ×2 (07:54→20:20)
[2019-07-02] MEDS: IPRATROPIUM 0.03% NASAL SPRAY 30 ML (ATROVENT) SCH ×2 (09:00→20:19)
--- NOTE | 2019-07-02 09:54 | IPNPDOC ---
PM&R Progress Note DATE OF SERVICE: Jul 02, 2019 Money Manager Progress Note Subjective: Patient reports he thinks his right ankle is less swollen and would prefer not to use the acewraps any further. REVIEW OF SYSTEMS: The following is a completed review of systems and has been reviewed. Review of systems otherwise unremarkable. PAIN: Patient self reports no pain EYES: No recent vision changes EARS, NOSE, & THROAT: No throat pain, or dysphagia, or rhinorrhea CARDIOVASCULAR: Denies chest pain or palpitations PULMONARY: Denies shortness of breath GASTROINTESTINAL: denies diarrhea/constipation GENITOURINARY: retention with intermittent hematuria (resolved) MUSCULOSKELETAL: LE weakness, R>L NEUROLOGICAL:+MS HEMATOLOGICAL:+hematuria (intermittent), melena (intermittent), thigh hematoma (improving) SKIN: no rash PSYCHIATRIC: Unremarkable All other review of systems found to be negative. PHYSICAL EXAMINATION: VITAL SIGNS: Please see below. GENERAL: Pleasant and cooperative. No acute distress. HEENT: PERRL. Extraocular movements intact. Clear conjunctiva CARDIOVASCULAR: Regular rate and rhythm. No murmurs, rubs, or gallops LUNGS: Clear to auscultation bilaterally. No wheezes. No rhonchi ABDOMEN: Soft, nontender, nondistended. Positive bowel sounds. Normal active bowel sounds NEUROLOGICAL: Alert and oriented times three. Cranial nerves II through XII grossly intact. Sensation grossly intact to light touch all 4 extremities 3+ patellar reflexes (-) Hoffmans bilat (-) Clonus EXTREMITIES: 5\\5 strength bilateral upper extremities. 3/5 right hip flexors, knee extensors, 3/5 ankle DF and 3+/5 EHL, 4/5 plantar flexion left hip flexors 3+/5, 4/5 knee extension/ankle DF/EHL and plantar flexion mild atrophy RLE when compared to LLE +diminished pedal pulse on RLE +edema right ankle (improving) SKIN: hyperpigmented lower calves R>L and feet, thigh hematoma, right anterior thigh ecchymosis (improving) ASSESSMENT:74-year-old M with past medical history of MS and Afib who presents hematoma of his right thigh s/p inguinal hernia repair with pneumonia and UTI. PLAN: 1. Rehab: PT- advance gait, strengthen bilat LE, work on endurance and balance training- avoid lifting >20 pounds OT- advance ADL management, especially transfers to commode at night to optimize self urinary care 2. [facility]: [facility] 3. cardio: pmh HTN, c/u Cozaar at 25mg daily, monitor for JODI 4. resp: diagnosed with LLL PNA s/p amoxicillin, Duonebs prn, and Guaifenesin, patient without cough, no leukocytosis -encourage incentive spirometry 5. GI: patient with liver lesion s/p biopsy- pathology negative for malignancy, positive for cirrhosis -(+) FOBT with intermittent melena with 2 polyps removed on recent colonoscopy, off AC, monitor -s/p inguinal hernia repair, will need /fu with surgery 6. 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 Endo: hx DM c/u metformin and ISS 8. : s/p Augmentin for E. Coli UTI- patient with recurrent UTIs, -Dr. Kilpatrick's recs appreciated, will d/c Augmentin - c/u prophylactic Macrobid -hx of BPH s/p TURP with retention, s/p inguinal hernia repair and partial resolution of constipation which may have been contributing to urinary retention, - c/u Flomax, mijares removed, voiding well -recommending urodynamic studies at [place] where there is an SCI center who should be familiar with neurogenic bladder cases- referral sent 9. Heme: monitor Hgb in setting of hx of hematuria and melena, transfuse if <8- stable 10. Renal: hx of JODI, monitor while on Losartan-stable 11. Extremity- RLE edema likely dependent due to right thigh hematoma, c/u Acerwap, patient encouraged to keep elevated at night 11. Dispo: 07-06-19 to home, progressing towards goals Allergies Coded Allergies: gabapentin (Verified Adverse Reaction, Intermediate, elevates MS symptoms, 06/08/19) modafinil (Verified Adverse Reaction, Intermediate, elevate MS symptoms, 06/08/19) omeprazole (Verified Adverse Reaction, Intermediate, elevated MS symptoms, 06/08/19) Dixcogc-Ayj-Dbo Reductase Inhibitor (Verified Adverse Reaction, Mild, "PASSES OUT", 06/08/19) glatiramer (copolymer 1) (Verified Adverse Reaction, Mild, weakness, 06/08/19) Vital Signs Vital Signs Date Time Temp Pulse Resp B/P (MAP) Pulse Ox O2 Delivery O2 Flow Rate FiO2 07/02/19 07:54 131/72 07/02/19 05:13 97.0 95 18 98 Room Air Laboratory Data Labs 24H Laboratory Tests 2 07/01/19 12:45: Bedside Glucose (Misc Panel) 75L 07/01/19 17:06: Bedside Glucose (Misc Panel) 115H 07/01/19 20:08: Bedside Glucose (Misc Panel) 155H 07/02/19 06:41: Bedside Glucose (Misc Panel) 119H Current Medications Current Medications Current Medications Medications (Trade) Dose Ordered Sig/Avelino Route PRN Reason Start Time Stop Time Status Last Admin Dose Admin Acetaminophen (Tylenol Tab) 650 mg Q4HP PRN PO MILD PAIN (PS 1-4) 06/21/19 16:00 06/28/19 03:48 Albuterol/ Ipratropium (Duoneb (Ipr 0.5mg/Alb 2.5mg)) 3 ml RTID NEB 06/21/19 20:00 06/23/19 12:03 DC 06/23/19 07:24 Albuterol/ Ipratropium (Duoneb (Ipr 0.5mg/Alb 2.5mg)) 3 ml RTID PRN NEB WHEEZING 06/23/19 12:15 Amoxicillin (Amoxicillin) 875 mg BID PO 06/21/19 21:00 06/25/19 10:27 DC 06/25/19 08:25 Ascorbic Acid (Vitamin C) 500 mg DAILY PO 06/21/19 09:00 07/02/19 07:52 Baclofen (Lioresal) 5 mg TID PO 06/21/19 16:00 07/02/19 07:52 Calcium Carbonate (Tums) 500 mg DAILY PRN PO INDIGESTION 06/21/19 16:00 Dextrose (Dextrose 50%) 25 ml ASDIRECTED PRN IV SEE LABEL COMMENTS 06/21/19 16:00 Docusate Sodium (Colace) 200 mg BID PO 07/01/19 21:00 07/02/19 07:51 Fluticasone Propionate (Flonase 0.05% Nasal [place]) 1 spray BID NARES 06/21/19 21:00 07/02/19 07:54 Furosemide (Lasix) 20 mg DAILY PO 06/23/19 09:00 06/24/19 10:30 DC 06/24/19 10:15 Glucagon (Glucagon) 1 mg ASDIRECTED PRN SC SEE LABEL COMMENTS 06/21/19 16:00 Glucose (Glucose) 16 GM ASDIRECTED PRN PO SEE LABEL COMMENTS 06/21/19 16:00 Guaifenesin (Robitussin Tab) 400 mg TID PO 06/21/19 16:00 07/01/19 20:23 Heparin Sodium (Porcine) (Heparin) 5,000 units Q12H SQ 06/22/19 21:00 07/02/19 07:50 Home Med (Med Rec Complete!) ASDIRECTED XX 06/21/19 15:30 06/21/19 15:27 DC Insulin Human Lispro (HumaLOG INSULIN) SEE PROTOCOL TABLE AC SC 06/21/19 17:30 07/02/19 07:51 Insulin Human Lispro (HumaLOG INSULIN) SEE PROTOCOL TABLE QHS [place] 06/21/19 21:00 Ipratropium [place] (Atrovent 0.03%) 2 spray BID NA 06/23/19 21:00 07/01/19 20:23 Lactobacillus Acidophilus (Bacid) 1 ea TID PO 06/25/19 16:00 06/25/19 10:35 DC Lactobacillus Acidophilus (Bacid) 1 ea TID PO 06/21/19 16:00 07/02/19 07:52 Lidocaine HCl (Lidocaine 2% Jelly) with each intermittent catheterization ASDIRECTED PRN TOP w/intermittent catheterization 06/23/19 14:00 Losartan Potassium (Cozaar) 25 mg DAILY PO 06/22/19 09:00 07/02/19 07:54 Metformin HCl (Glucophage) 500 mg DAILY@18 PO 06/24/19 18:00 07/01/19 17:39 Metformin HCl (Glucophage) 1,000 mg DAILY@18 PO 06/21/19 18:00 06/24/19 12:19 DC 06/23/19 16:56 Miscellaneous (Unresolved Clarification Entry) SEE LABEL COMMENTS DAILY XX 06/29/19 09:00 06/29/19 10:08 DC Nitrofurantoin Monoh/Nitrofur Macro (Macrobid) 100 mg DAILY PO 06/25/19 12:00 07/02/19 07:52 Polyethylene Glycol (Miralax) 1 pkt DAILY PO 07/01/19 10:15 07/02/19 07:50 Senna/Docusate Sodium (Senokot S) 1 tab BID PO 06/22/19 21:00 06/25/19 13:21 DC 06/25/19 08:24 Senna/Docusate Sodium (Senokot S) 2 tab BID PO 06/25/19 21:00 07/01/19 10:14 DC 07/01/19 09:14 Senna/Docusate Sodium (Senokot S) 2 tab BID PO 06/21/19 21:00 06/22/19 16:23 DC 06/21/19 21:00 Sodium Chloride ([place] Nasal [place]) 2 spray QID NA 06/21/19 17:00 07/02/19 07:54 Tamsulosin HCl (Flomax) 0.4 mg QHS PO 06/21/19 21:00 07/01/19 20:22 Vitamin D (Vitamin D) 2,000 units QHS PO 06/21/19 21:00 07/01/19 20:22 KRISTINA CADENA MD Jul 02, 2019 09:54
[2019-07-02 15:46] VITALS: BP 149/82
[2019-07-02] MEDS: metFORMIN (GLUCOPHAGE) 500 MG TAB PO SCH (16:55)
[2019-07-02 20:05] VITALS: BP 160/78
[2019-07-02] MEDS: VITAMIN D 1,000 INTERNATIONAL UNITS TABLET PO SCH (20:18)
[2019-07-02] MEDS: TAMSULOSIN 0.4 MG CAP PO SCH (20:19)
[2019-07-03 05:35] VITALS: BP 121/75
[2019-07-03] MEDS: HumaLOG INSULIN (NovoLOG) PER UNIT SC SCH ×4 (08:27→20:53)
[2019-07-03] MEDS: HEPARIN SOD (PORCINE) 5000 UNITS/ML VIAL SQ SCH ×2 (08:29→20:52)
[2019-07-03] MEDS: LACTOBACILLUS ACIDOPHILUS CAP (BACID) PO SCH ×3 (08:30→20:52)
[2019-07-03] MEDS: ASCORBIC ACID 500 MG TAB PO SCH (08:30)
[2019-07-03] MEDS: NITROFURANTOIN (MACROBID) 100 MG CAP PO SCH (08:30)
[2019-07-03] MEDS: guaiFENesin 200 MG TAB PO SCH ×3 (08:30→20:52)
[2019-07-03] MEDS: BACLOFEN 5MG PER 1/2 TABLET PO SCH ×3 (08:30→20:52)
[2019-07-03] MEDS: DOCUSATE SODIUM 100 MG CAP PO SCH ×2 (08:30→20:52)
[2019-07-03] MEDS: LOSARTAN 25 MG TAB PO SCH (08:31)
[2019-07-03] MEDS: MIRALAX *UNIT DOSE* 17GM PACKET PO SCH (08:34)
[2019-07-03] MEDS: FLUTICASONE PROP 0.05% NASAL SPRAY 16 GM (FLONASE) NARES SCH ×2 (08:45→20:54)
[2019-07-03] MEDS: SODIUM CHLORIDE NASAL 0.65% SPRAY BTL (OCEAN) SCH ×4 (08:45→20:53)
[2019-07-03] MEDS: IPRATROPIUM 0.03% NASAL SPRAY 30 ML (ATROVENT) SCH ×2 (08:48→20:54)
[2019-07-03 14:00] VITALS: BP 137/79
[2019-07-03] MEDS: metFORMIN (GLUCOPHAGE) 500 MG TAB PO SCH (17:20)
[2019-07-03 20:00] VITALS: BP 144/76
[2019-07-03] MEDS: TAMSULOSIN 0.4 MG CAP PO SCH (20:52)
[2019-07-03] MEDS: VITAMIN D 1,000 INTERNATIONAL UNITS TABLET PO SCH (20:52)
[2019-07-04 06:40] LABS: HEMATOCRIT 40.2 % (42.0-52.0); HEMOGLOBIN 12.7 g/dl (13.5-17.5); MEAN CORPUSCULAR HEMOGLOBIN 31.1 pg (27.0-33.0); MEAN CORPUSCULAR HGB CONC 31.6 g/dl (32.0-36.5); MEAN CORPUSCULAR VOLUME 98.5 fl (80.0-96.0); PLATELET COUNT, AUTOMATED 274 10^3/uL (150-450); RED BLOOD COUNT 4.08 10^6/uL (4.30-6.10); WHITE BLOOD COUNT 5.1 10^3/uL (4.0-10.0)
[2019-07-04 06:54] VITALS: BP 142/80
[2019-07-04] MEDS: MIRALAX *UNIT DOSE* 17GM PACKET PO SCH (08:52)
[2019-07-04] MEDS: HumaLOG INSULIN (NovoLOG) PER UNIT SC SCH ×4 (08:53→19:57)
[2019-07-04] MEDS: ASCORBIC ACID 500 MG TAB PO SCH (08:53)
[2019-07-04] MEDS: DOCUSATE SODIUM 100 MG CAP PO SCH ×2 (08:53→20:46)
[2019-07-04] MEDS: HEPARIN SOD (PORCINE) 5000 UNITS/ML VIAL SQ SCH ×2 (08:53→20:46)
[2019-07-04] MEDS: LACTOBACILLUS ACIDOPHILUS CAP (BACID) PO SCH ×3 (08:53→20:46)
[2019-07-04] MEDS: NITROFURANTOIN (MACROBID) 100 MG CAP PO SCH (08:53)
[2019-07-04] MEDS: BACLOFEN 5MG PER 1/2 TABLET PO SCH ×3 (08:53→20:46)
[2019-07-04] MEDS: LOSARTAN 25 MG TAB PO SCH (08:54)
[2019-07-04] MEDS: SODIUM CHLORIDE NASAL 0.65% SPRAY BTL (OCEAN) SCH ×4 (08:54→20:47)
[2019-07-04] MEDS: IPRATROPIUM 0.03% NASAL SPRAY 30 ML (ATROVENT) SCH ×2 (08:54→20:47)
[2019-07-04] MEDS: guaiFENesin 200 MG TAB PO SCH ×3 (08:54→20:46)
[2019-07-04] MEDS: FLUTICASONE PROP 0.05% NASAL SPRAY 16 GM (FLONASE) NARES SCH ×2 (08:55→20:47)
[2019-07-04 14:00] VITALS: BP 146/74
[2019-07-04] MEDS: metFORMIN (GLUCOPHAGE) 500 MG TAB PO SCH (16:59)
[2019-07-04 20:00] VITALS: BP 137/77
[2019-07-04] MEDS: TAMSULOSIN 0.4 MG CAP PO SCH (20:46)
[2019-07-04] MEDS: VITAMIN D 1,000 INTERNATIONAL UNITS TABLET PO SCH (20:46)
[2019-07-05] MEDS: ACETAMINOPHEN TAB 650MG DOSE (2X325MG) PO PRN (02:57)
[2019-07-05 06:00] VITALS: BP 133/75
[2019-07-05] MEDS: HumaLOG INSULIN (NovoLOG) PER UNIT SC SCH ×4 (07:51→20:30)
[2019-07-05] MEDS: BACLOFEN 5MG PER 1/2 TABLET PO SCH ×3 (07:51→20:40)
[2019-07-05] MEDS: ASCORBIC ACID 500 MG TAB PO SCH (07:51)
[2019-07-05] MEDS: HEPARIN SOD (PORCINE) 5000 UNITS/ML VIAL SQ SCH ×2 (07:51→20:39)
[2019-07-05] MEDS: MIRALAX *UNIT DOSE* 17GM PACKET PO SCH (07:51)
[2019-07-05] MEDS: DOCUSATE SODIUM 100 MG CAP PO SCH ×2 (07:52→20:40)
[2019-07-05] MEDS: LACTOBACILLUS ACIDOPHILUS CAP (BACID) PO SCH ×3 (07:52→20:41)
[2019-07-05] MEDS: NITROFURANTOIN (MACROBID) 100 MG CAP PO SCH (07:52)
[2019-07-05] MEDS: LOSARTAN 25 MG TAB PO SCH (07:52)
[2019-07-05] MEDS: guaiFENesin 200 MG TAB PO SCH ×3 (07:52→20:40)
[2019-07-05] MEDS: IPRATROPIUM 0.03% NASAL SPRAY 30 ML (ATROVENT) SCH ×2 (07:53→20:41)
[2019-07-05] MEDS: FLUTICASONE PROP 0.05% NASAL SPRAY 16 GM (FLONASE) NARES SCH ×2 (07:53→20:41)
[2019-07-05] MEDS: SODIUM CHLORIDE NASAL 0.65% SPRAY BTL (OCEAN) SCH ×4 (07:53→20:41)
[2019-07-05 14:00] VITALS: BP 126/65
[2019-07-05] MEDS: metFORMIN (GLUCOPHAGE) 500 MG TAB PO SCH (18:15)
[2019-07-05 20:00] VITALS: BP 145/77
[2019-07-05] MEDS: TAMSULOSIN 0.4 MG CAP PO SCH (20:39)
[2019-07-05] MEDS: VITAMIN D 1,000 INTERNATIONAL UNITS TABLET PO SCH (20:40)
[2019-07-06] MEDS: DOCUSATE SODIUM 100 MG CAP PO SCH (08:27)
[2019-07-06 08:28] VITALS: BP 133/75
[2019-07-06] MEDS: LOSARTAN 25 MG TAB PO SCH (08:28)
[2019-07-06] MEDS: HumaLOG INSULIN (NovoLOG) PER UNIT SC SCH ×2 (08:28→11:54)
[2019-07-06] MEDS: NITROFURANTOIN (MACROBID) 100 MG CAP PO SCH (08:28)
[2019-07-06] MEDS: BACLOFEN 5MG PER 1/2 TABLET PO SCH (08:28)
[2019-07-06] MEDS: guaiFENesin 200 MG TAB PO SCH (08:28)
[2019-07-06] MEDS: ASCORBIC ACID 500 MG TAB PO SCH (08:28)
[2019-07-06] MEDS: HEPARIN SOD (PORCINE) 5000 UNITS/ML VIAL SQ SCH (08:28)
[2019-07-06] MEDS: LACTOBACILLUS ACIDOPHILUS CAP (BACID) PO SCH (08:28)
[2019-07-06] MEDS: SODIUM CHLORIDE NASAL 0.65% SPRAY BTL (OCEAN) SCH (08:29)
[2019-07-06] MEDS: FLUTICASONE PROP 0.05% NASAL SPRAY 16 GM (FLONASE) NARES SCH (08:29)
[2019-07-06] MEDS: MIRALAX *UNIT DOSE* 17GM PACKET PO SCH (08:29)
[2019-07-06] MEDS: IPRATROPIUM 0.03% NASAL SPRAY 30 ML (ATROVENT) SCH (08:29)
--- NOTE | 2019-07-08 17:21 | PMRDS ---
DATE OF ADMISSION: 06/21/2019 DATE OF DISCHARGE: 07/06/2019 CHIEF COMPLAINT/DISCHARGE DIAGNOSIS: Neurological decline in setting of MS. HISTORY OF PRESENT ILLNESS: 74-year-old male with a past medical history of MS, hypertension, diabetes arterial thrombus on Coumadin with recent lumbar mass biopsy who was admitted to [facility] on 06/08/2019 with right thigh hematoma. He was evaluated by orthopedics for concern for compartment syndrome but no surgical intervention was deemed necessary. 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 Right lower extremity atherosclerotic disease with single-vessel runoff suggested from the midcalf to the ankle...large complex intramuscular fluid collection along the lateral aspect of the right side as detailed above most likely represent a hematoma.... large left inguinal hernia containing fat and nonobstructive colon". The patient was noted to have significant urinary retention and underwent a robotic-assisted single her a repair on 06/13/2019 with Urban placement. He was then found to have a left lower lobe pneumonia an E-coli UTIs so was started on segmented. He also had episodes of melena and required 3 units of PRBC use. He was evaluated by therapy found to have deficits in mobility in ADLs below his prior level of function and deemed medically appropriate for discharge. PAST MEDICAL HISTORY: As per HPI. HOSPITAL COURSE: The patient was admitted on a comprehensive, OT, PT program. He received 24-hour nursing supervision and weekly team meetings were held to discuss his progress. The patient's Coumadin was held during his hospital course in the setting of recent thigh hematoma and GI bleed. He was maintained on prophylactic heparin with a stable H H during his hospital course for DVT prophylaxis. He was maintained on metformin and insulin sliding scale for his diabetes and he was evaluated by infectious disease who placed him on prophylactic Macrobid in the setting of recurrent UTIs. He was recommended to follow up with urologist at the [facility] for urodynamic studies for suspected neurogenic bladder. During his hospital course the patient voided well, was started on Flomax. He developed right calf and ankle swelling which resolved with Gulshan wrapping thought to be due to dependent edema from his right thigh hematoma. The patient made significant gains in therapy was deemed medically and functionally stable to return home. DISCHARGE MEDICATIONS: As per instructions. FUNCTIONAL HISTORY: On discharge the patient was modified independent for functional transfers able to ambulate 100 feet, modified independent, in occupational therapy he was modified independent for functional transfers, standby assist for upper and lower body dressing.
== END 2019-07-06 13:13 | disposition home health service (06) | DRG 59 ==
LOC: M PM&R 12:35
PROVIDERS: ADMIT Physical Medicine & Rehabilitation; ATTEND Physical Medicine & Rehabilitation
DX: G35 Multiple sclerosis (principal); M96.841 Postprocedural hematoma of a musculoskeletal structure following other procedure; I10 Essential (primary) hypertension; I70.203 Unspecified atherosclerosis of native arteries of extremities, bilateral legs; E11.51 Type 2 diabetes mellitus with diabetic peripheral angiopathy without gangrene; N40.1 Benign prostatic hyperplasia with lower urinary tract symptoms; R33.9 Retention of urine, unspecified; M62.81 Muscle weakness (generalized); I72.4 Aneurysm of artery of lower extremity; K74.60 Unspecified cirrhosis of liver; Z86.718 Personal history of other venous thrombosis and embolism; Z79.899 Other long term (current) drug therapy; Z88.8 Allergy status to other drugs, medicaments and biological substances; Z79.84 Long term (current) use of oral hypoglycemic drugs; Y83.8 Other surgical procedures as the cause of abnormal reaction of the patient, or of later complication, without mention of misadventure at the time of the procedure; R32 Unspecified urinary incontinence; Z87.440 Personal history of urinary (tract) infections

== ENCOUNTER → 2019-07-16 | Outpatient (REF) | payer MEDICARE ==
[~2019-07-16] MED LIST changes: +BACL10TA2 PO; +COZA1TAB PO; +FLOM0.4C39 PO; +FLUTISP NARES; +GLUC500T PO; +IPRA3SP; +NITR100C2 PO; +RISATAB3 PO; +SM N0.65
[2019-07-16 11:56] LABS: HEMATOCRIT 46.5 % (42.0-52.0); HEMOGLOBIN 14.9 g/dl (13.5-17.5); MEAN CORPUSCULAR VOLUME 96.9 fl (80.0-96.0); PLATELET COUNT, AUTOMATED 313 10^3/uL (150-450); WHITE BLOOD COUNT 6.5 10^3/uL (4.0-10.0)
[2019-07-16 12:28] LABS: ALBUMIN 3.7 GM/DL (3.2-5.2); ALT/SGPT 63 U/L (12-78); BILIRUBIN,TOTAL 0.6 MG/DL (0.2-1.0); BLOOD UREA NITROGEN 31 MG/DL (7-18); CARBON DIOXIDE LEVEL 27 MEQ/L (21-32); CHLORIDE LEVEL 106 MEQ/L (98-107); CREATININE FOR GFR 1.13 MG/DL (0.70-1.30); GLOMERULAR FILTRATION RATE > 60.0 (>42); GLUCOSE, FASTING 145 MG/DL (70-100); POTASSIUM SERUM 4.4 MEQ/L (3.5-5.1); SODIUM LEVEL 139 MEQ/L (136-145); TOTAL PROTEIN 9.2 GM/DL (6.4-8.2); URIC ACID 4.7 MG/DL (3.5-7.2)
[2019-07-16 12:53] LABS: HEMOGLOBIN A1c 5.7 %
== END ==
LOC: M SFHCPLAZ 10:54
PROVIDERS: ATTEND Family Medicine
DX: R31.9 Hematuria, unspecified (principal); E11.9 Type 2 diabetes mellitus without complications; R74.0 Nonspecific elevation of levels of transaminase and lactic acid dehydrogenase [LDH]; R16.0 Hepatomegaly, not elsewhere classified; M10.9 Gout, unspecified
CPT/HCPCS: 36415; 80053; 83036; 84550; 85027; 99495; G0463

== ENCOUNTER → 2019-07-20 | Outpatient (REF) | payer MEDICARE ==
[2019-07-20 13:37] LABS: APPEARANCE, URINE HAZY (CLEAR); BACTERIA, URINE AUTO NEGATIVE (NEGATIVE); BILIRUBIN, URINE AUTO NEGATIVE (NEGATIVE); BLOOD, URINE BLOOD NEGATIVE (NEGATIVE); CALCIUM OXALATE CRYSTALS MODERATE; COLOR, URINE YELLOW (YELLOW); GLUCOSE, URINE (UA) AUTO NEGATIVE (NEGATIVE); KETONE, URINE AUTO NEGATIVE (NEGATIVE); LEUKOCYTE ESTERASE, URINE AUTO NEGATIVE (NEGATIVE); MUCUS, URINE SMALL (NEGATIVE); NITRITE, URINE AUTO NEGATIVE (NEGATIVE); PROTEIN, URINE AUTO NEGATIVE (NEGATIVE); RBC, URINE AUTO 1 /HPF (0-3); SPECIFIC GRAVITY URINE AUTO 1.019 (1.002-1.035); SQUAMOUS EPITHELIAL CELL UR AU 0 /HPF (0-6); UROBILINOGEN, URINE AUTO 0.2 mg/dL (0.0-2.0); WBC, URINE AUTO 1 /HPF (0-3)
== END ==
LOC: M SMT 12:57
PROVIDERS: ATTEND Urology
DX: N39.0 Urinary tract infection, site not specified (principal)
CPT/HCPCS: 51798; 81001; 87086; G0463

== ENCOUNTER 2019-09-13 09:49 | Emergency (ER) | payer MEDICARE ==
[~2019-09-13] VITALS: Ht 170.2 cm; Wt 79.5 kg
[2019-09-13] MEDS ORDERED: MIRA3350 PO (10:21)
[2019-09-13] MEDS ORDERED: XARE2.5T PO (10:21)
[2019-09-13] MEDS ORDERED: ASPI81CH33 PO (10:21)
[2019-09-13] MEDS ORDERED: DOCU240C9 PO (10:21)
--- NOTE | 2019-09-13 11:23 | REP ---
CT brain without contrast: History: Patient injured in a fall. Patient on blood thinners. Comparison CT study October 24, 2014. CT findings: Digital preliminary senior android developer radiograph demonstrates some scalp swelling posteriorly at the vertex. The patient is edentulous. Supervisor Floor Assembly view is otherwise unremarkable. On bone window settings there is no evidence of skull fracture. Some scalp swelling is seen at the vertex consistent with a small scalp hematoma. There is heavy vascular calcification at the skull base involving the internal carotid arteries bilaterally. No intraorbital abnormality is seen. Visualized paranasal sinuses are clear. There is no evidence of intracranial hemorrhage. There is mild generalized atrophy and some mild periventricular white matter low density consistent with small vessel atherosclerotic changes. There is a stable benign meningioma attached to the right margin of the frontal portion of the falx cerebrum in the right frontal lobe. This measures 13 x 15 x 7 mm and is visible in retrospect and unchanged from the October 24, [address] study. There is no evidence of extra-axial fluid collection, infarct, other mass or midline shift. Impression: Stable small right frontal meningioma 15 mm in greatest diameter. Diffuse atrophy and heavy vascular calcification. Scalp swelling at the vertex. No skull fracture or intracranial injury seen. Electronically Signed by Carroll Muniz MD 09/13/2019 01:03 P
[2019-09-13 11:27] LABS: BASO % 0.7 % (0.0-1.0); EOS # 0.1 10^3/uL (0.0-0.5); EOS % 2.1 % (0.0-3.0); HEMATOCRIT 42.7 % (42.0-52.0); HEMOGLOBIN 14.2 g/dl (13.5-17.5); LYMPH # 2.1 10^3/uL (1.5-5.0); LYMPH % 36.4 % (24.0-44.0); MEAN CORPUSCULAR HEMOGLOBIN 30.9 pg (27.0-33.0); MEAN CORPUSCULAR HGB CONC 33.3 g/dl (32.0-36.5); MEAN CORPUSCULAR VOLUME 92.8 fl (80.0-96.0); MONO # 0.6 10^3/uL (0.0-0.8); MONO % 9.5 % (0.0-5.0); PLATELET COUNT, AUTOMATED 255 10^3/uL (150-450); WHITE BLOOD COUNT 5.8 10^3/uL (4.0-10.0)
[2019-09-13 11:34] LABS: INR 1.22; PROTHROMBIN TIME 15.1 SECONDS (11.8-14.0)
[2019-09-13 11:35] LABS: PARTIAL THROMBOPLASTIN TIME 32.2 SECONDS (25.0-38.4)
[2019-09-13 11:58] LABS: ALBUMIN 3.5 GM/DL (3.2-5.2); ALT/SGPT 72 U/L (12-78); BILIRUBIN,DIRECT 0.2 MG/DL (0.0-0.2); BILIRUBIN,TOTAL 0.4 MG/DL (0.2-1.0); BLOOD UREA NITROGEN 33 MG/DL (7-18); C REACTIVE PROTEIN QUANTITATIV 0.32 MG/DL (0.00-0.30); CALCIUM LEVEL 9.9 MG/DL (8.8-10.2); CARBON DIOXIDE LEVEL 29 MEQ/L (21-32); CHLORIDE LEVEL 107 MEQ/L (98-107); CREATININE FOR GFR 1.16 MG/DL (0.70-1.30); GLOMERULAR FILTRATION RATE > 60.0 (>42); GLUCOSE, FASTING 107 MG/DL (70-100); POTASSIUM SERUM 4.3 MEQ/L (3.5-5.1); SODIUM LEVEL 140 MEQ/L (136-145); TOTAL PROTEIN 7.7 GM/DL (6.4-8.2)
[2019-09-13 12:21] LABS: ERYTHROCYTE SEDIMENTATION RATE 47 mm/hr (0-20)
--- NOTE | 2019-09-13 13:45 | REP ---
BILATERAL LOWER EXTREMITY DUPLEX DOPPLER VENOUS ULTRASOUND: Real-time compression and duplex Doppler interrogation of bilateral lower extremity deep venous systems is performed. Focal nonocclusive thrombus is seen in the mid right femoral vein. Otherwise there is no other evidence of deep vein thrombosis bilaterally with bilateral common femoral veins and popliteal veins, as well as left femoral vein fully compressible with transducer pressure with normal internal flow. Incidental note is made of a left popliteal artery aneurysm with internal blood flow 2.5 cm in diameter. IMPRESSION: Focal nonocclusive thrombus mid right femoral vein. No other deep vein thrombosis bilaterally. Left popliteal artery aneurysm 2.5 cm in diameter. Electronically Signed by Jeff Lema MD 09/13/2019 05:54 P
[2019-09-13 14:30] VITALS: BP 159/89
== END 2019-09-13 15:13 | disposition home or self-care (01) ==
LOC: EDBD 09:49 → M ED 09:49
DX: R60.0 Localized edema (principal); E11.9 Type 2 diabetes mellitus without complications; I10 Essential (primary) hypertension; E78.5 Hyperlipidemia, unspecified; G35 Multiple sclerosis; G47.33 Obstructive sleep apnea (adult) (pediatric); N31.9 Neuromuscular dysfunction of bladder, unspecified; Z87.891 Personal history of nicotine dependence; Z79.01 Long term (current) use of anticoagulants

== ENCOUNTER → 2020-01-21 | Outpatient (REF) | payer MEDICARE ==
[~2020-01-21] MED LIST changes: +AMLO1TAB24 PO; -AMLO5TAB6 PO; +ASPI81CH33 PO; -COUM7.5T PO; +COUM7.5T6 PO; +D31000TA2 PO; +DOCU240C9 PO; +LEVO500T3 PO; +LOSA25TA14 PO; +MACR100C43 PO; +METF-838 PO; +NITR-67 PO; +OMEP-218 PO; +Pill Cutter XX; -SPORANOX 2 CAPS BID; +SPORANOX {null, 2 CAPS BID}; +XARE2.5T PO
[2020-01-21 11:18] LABS: HEMATOCRIT 45.6 % (42.0-52.0); MEAN CORPUSCULAR HEMOGLOBIN 31.1 pg (27.0-33.0); MEAN CORPUSCULAR HGB CONC 32.9 g/dl (32.0-36.5); MEAN CORPUSCULAR VOLUME 94.4 fl (80.0-96.0); PLATELET COUNT, AUTOMATED 288 10^3/uL (150-450); RED BLOOD COUNT 4.83 10^6/uL (4.30-6.10); WHITE BLOOD COUNT 4.8 10^3/uL (4.0-10.0)
[2020-01-21 11:21] LABS: ALBUMIN 3.9 GM/DL (3.2-5.2); BILIRUBIN,TOTAL 0.5 MG/DL (0.2-1.0); CALCIUM LEVEL 9.7 MG/DL (8.8-10.2); CREATININE FOR GFR 1.27 MG/DL (0.70-1.30); GLOMERULAR FILTRATION RATE 58.7 (>42); TOTAL PROTEIN 8.2 GM/DL (6.4-8.2)
[2020-01-21 11:35] LABS: HEMOGLOBIN A1c 6.2 %
== END ==
LOC: M PLALAB 09:40
PROVIDERS: ATTEND Family Medicine
DX: I74.3 Embolism and thrombosis of arteries of the lower extremities (principal); E11.9 Type 2 diabetes mellitus without complications

== ENCOUNTER 2020-04-08 04:35 | Inpatient (IN) | payer MEDICARE ==
[~2020-04-08] VITALS: Ht 175.3 cm; Wt 82.0 kg
[~2020-04-08 04:35] MED LIST changes: -D31000TA2 PO; -LEVO500T3 PO; -LOSA25TA14 PO; -MACR100C43 PO; -METF-838 PO; -NITR-67 PO; -OMEP-218 PO; -Pill Cutter XX; +SPORANOX 2 CAPS BID; -SPORANOX {null, 2 CAPS BID}
[2020-04-08] MEDS ORDERED: MACR100C43 PO (04:54)
[2020-04-08] MEDS ORDERED: OMEP-218 PO (04:54)
[2020-04-08] MEDS ORDERED: NS 1,000 ML IV ONE (05:15)
[2020-04-08] MEDS ORDERED: ONDANSETRON 4MG/2ML VIAL IV ONE (05:45)
[2020-04-08 06:11] LABS: BASO % 0.2 % (0.0-1.0); EOS % 0.1 % (0.0-3.0); HEMATOCRIT 49.6 % (42.0-52.0); HEMOGLOBIN 16.6 g/dl (13.5-17.5); LYMPH # 1.9 10^3/uL (1.5-5.0); LYMPH % 13.1 % (24.0-44.0); MEAN CORPUSCULAR HGB CONC 33.5 g/dl (32.0-36.5); MEAN CORPUSCULAR VOLUME 89.7 fl (80.0-96.0); MONO # 0.8 10^3/uL (0.0-0.8); MONO % 5.7 % (0.0-5.0); NEUTROPHILS # 11.6 10^3/uL (1.5-8.5); NEUTROPHILS % 80.4 % (36.0-66.0); PLATELET COUNT, AUTOMATED 330 10^3/uL (150-450); RED BLOOD COUNT 5.53 10^6/uL (4.30-6.10); WHITE BLOOD COUNT 14.4 10^3/uL (4.0-10.0)
[2020-04-08] MEDS ORDERED: ISOVUE-370 76% 100ML VIAL As Ordered ONE (06:31)
[2020-04-08 06:33] LABS: ALBUMIN 4.2 GM/DL (3.2-5.2); ALT/SGPT 41 U/L (12-78); BILIRUBIN,DIRECT 0.2 MG/DL (0.0-0.2); BILIRUBIN,TOTAL 0.7 MG/DL (0.2-1.0); CK-MB VALUE MASS 5.7 NG/ML (<3.6); CPK CREATINE PHOSPHOKINASE 109 U/L (39-308); LIPASE 236 U/L (73-393); MB/CK RELATIVE INDEX 5.23 (< OR =4); TOTAL PROTEIN 8.8 GM/DL (6.4-8.2); TROPONIN I < 0.02 NG/ML (< 0.10)
[2020-04-08] MEDS ORDERED: METOCLOPRAMIDE INJ 10MG/2ML VIAL (J2765 PER 1) IV ONE (06:45)
[2020-04-08] MEDS ORDERED: HALOPERIDOL 5MG/ML VIAL (J1630 PER 1) IV ONE (07:45)
--- NOTE | 2020-04-08 08:23 | REPVR ---
PROCEDURE INFORMATION: Exam: XR Abdomen, 1 View Exam date and time: 04/08/2020 8:05 AM Age: 74 years old Clinical indication: Other: Sbo? TECHNIQUE: Imaging protocol: XR of the abdomen. Views: Frontal supine view of the abdomen. 1 View. COMPARISON: CT ABD PELVIS W/O CONTRAST 04/13/2019 10:25 AM FINDINGS: Dilated proximal to mid small bowel measuring up to 3.9 cm, and significant distension of the stomach. Several air-fluid levels are present. There is moderate stool throughout the colon. IMPRESSION: Findings suggestive of small-bowel obstruction with distended proximal small bowel and stomach. Electronically signed by: Chuck Dent On 04/08/2020 08:23:49 AM
--- NOTE | 2020-04-08 08:45 | REPVR ---
PROCEDURE INFORMATION: Exam: CT Abdomen And Pelvis With Contrast Exam date and time: 04/08/2020 8:20 AM Age: 74 years old Clinical indication: Vomiting; Additional info: Intractable vomiting TECHNIQUE: Imaging protocol: Computed tomography of the abdomen and pelvis with intravenous contrast. Radiation optimization: All CT scans at this facility use at least one of these dose optimization techniques: automated exposure control; mA and/or kV adjustment per patient size (includes targeted exams where dose is matched to clinical indication); or iterative reconstruction. Contrast material: ISOVUE 370; Contrast volume: 100 ml; Contrast route: INTRAVENOUS (IV); COMPARISON: CT ABD PELVIS W/O CONTRAST 04/13/2019 10:25 AM FINDINGS: Tubes, catheters and devices: Enteric tube terminates in the stomach. Liver: There are mildly nodular contours to the liver suggesting underlying cirrhosis. There is a 4.6 x 4.8 cm heterogeneously hyperattenuating/enhancing mass centered in hepatic segment 8. Gallbladder and bile ducts: No calcified stones. No ductal dilation. Pancreas: Normal. No ductal dilation. Spleen: No splenomegaly. Adrenals: Mild thickening of the bilateral adrenal glands without focal mass. Kidneys and ureters: No hydronephrosis. Stomach and bowel: A small bowel obstruction is present with dilated stomach, duodenum and jejunum with transition point at the anterior abdomen associated with a small herniated loop of small bowel into the pre-existing periumbilical hernia. No intestinal pneumatosis or evidence of ischemia. Scattered colonic diverticulosis. Appendix: No evidence of appendicitis. Intraperitoneal space: Small amount of free intraperitoneal fluid is present. Vasculature: Moderate aortic and branch vessel atherosclerosis. Aortic annular and coronary artery calcifications are present. Lymph nodes: No enlarged lymph nodes. Urinary bladder: Unremarkable as visualized. Reproductive: Mild prostate enlargement. Bones/joints: No acute fracture. The T8 compression fracture does not appear substantially changed from the 06/08/2019 CT comparison. Extensive spinal degenerative change on a background of demineralization. Soft tissues: Bilateral fat containing inguinal hernias. IMPRESSION: 1. Mechanical small bowel obstruction with transition point at a loop of small bowel herniated into the pre-existing small periumbilical hernia. 2. Large mass in hepatic segment 8 on a background of suspected cirrhosis. This is concerning for hepatocellular carcinoma, recommend multiphasic liver MRI or CT on a nonemergent basis for further evaluation. Electronically signed by: Chuck Dent On 04/08/2020 08:45:27 AM
[2020-04-08] MEDS ORDERED: GLUCOSE 4GM CHEW TABLET PO PRN (10:00)
[2020-04-08] MEDS ORDERED: GLUCAGON INJ 1MG VIAL SC PRN (10:00)
[2020-04-08] MEDS ORDERED: ONDANSETRON 4MG/2ML VIAL IV PRN (10:00)
[2020-04-08] MEDS ORDERED: MORPHINE 2 MG/ML 1ML VIAL (J2270) IV PRN (10:00)
[2020-04-08] MEDS ORDERED: DEXTROSE 50% 50 ML SYRINGE IV PRN (10:00)
[2020-04-08] MEDS ORDERED: D31000TA2 PO (10:13)
[2020-04-08] MEDS ORDERED: FLUTISP NARES (10:13)
[2020-04-08] MEDS ORDERED: METF-838 PO (10:13)
[2020-04-08] MEDS ORDERED: ASPI81TA26 PO (10:13)
[2020-04-08] MEDS ORDERED: RISATAB3 PO (10:13)
[2020-04-08] MEDS ORDERED: BACL10TA2 PO (10:13)
[2020-04-08] MEDS ORDERED: DOCU100C16 PO (10:13)
[2020-04-08] MEDS ORDERED: LOSA25TA14 PO (10:13)
[2020-04-08] MEDS ORDERED: FLOM0.4C39 PO (10:13)
[2020-04-08] MEDS ORDERED: NITR-67 PO (10:13)
[2020-04-08] MEDS ORDERED: hydrALAZINE 20MG/ML 1ML VIAL (J0360 PER 20MG) IV PRN (10:15)
--- NOTE | 2020-04-08 10:38 | REPVR ---
PROCEDURE INFORMATION: Exam: XR Chest, 1 View Exam date and time: 04/08/2020 10:07 AM Age: 74 years old Clinical indication: Other: Pre op/ ngt; Additional info: Pre-op, ngt TECHNIQUE: Imaging protocol: XR of the chest Views: 1 view. COMPARISON: CR Chest, 1 view 06/08/2019 8:59 AM FINDINGS: Tubes, catheters and devices: Nasogastric tube is subdiaphragmatic with the tip not imaged. Lungs: There are streaky opacities in both lower lungs. Pleural space: No pleural effusion. No pneumothorax. Heart/Mediastinum: Cardiac silhouette is stable. Bones/joints: No acute abnormality. IMPRESSION: 1. Nasogastric tube is subdiaphragmatic with tip not imaged. 2. Multifocal airspace opacities are present throughout the lower lungs, as seen on comparison CT suspicious for aspiration pneumonitis or early multifocal pneumonia. Electronically signed by: Chuck Dent On 04/08/2020 10:38:40 AM
[2020-04-08 10:49] LABS: INR 1.07; PROTHROMBIN TIME 14.2 SECONDS (12.5-14.3)
[2020-04-08 10:50] LABS: PARTIAL THROMBOPLASTIN TIME 31.9 SECONDS (24.2-38.5)
[2020-04-08 10:56] VITALS: BP 136/70
[2020-04-08] MEDS ORDERED: LR 1,000 ML IV SCH (11:00)
[2020-04-08] MEDS: NS 1,000 ML IV SCH (13:45)
[2020-04-08] MEDS: PIPERACILLIN/TAZOBACTAM SOD 4.5 GM in D5W MINI-BAG PLUS 50 ML IV SCH ×2 (13:45→19:33)
[2020-04-08 16:00] VITALS: BP 106/56
--- NOTE | 2020-04-08 16:30 | HPEPDOC ---
General Date of Admission Apr 08, 2020 at 09:52 Date of Service: Apr 08, 2020 Attending Physician: IBIS CAMPUZANO DO Chief Complaint The patient is a 74-year-old male admitted with a reason for visit of Liver Mass. Source: Patient Exam Limitations: No limitations History of Present Illness Mr. Smith is a 74-year-old male with multiple sclerosis, diabetes mellitus, hypertension, and cirrhosis who is here for projectile vomiting and abdominal pain found to have SBO secondary to incarcerated umbilical hernia. He's never had an SBO before in the past, he has had abdominal surgeries in the past. He tells me that he had a hernia repair in June 2019. His symptoms began yesterday morning. He had abdominal pain with nausea. Subsequently ended up having projectile vomiting. He does not know how many times he has vomited, but he does not remember seeing any blood in his emesis. He came to the ED today. CT of abdomen and pelvis demonstrated mechanical small bowel obstruction with transition point at a loop of small bowel herniating into a pre-existing small periumbilical hernia. Lactic acid was within normal. Gen. surgery, Dr. Avitia, was consulted. He evaluated the patient in the ED. He is able to reduce umbilical hernia. Patient was put on NG tube, plan for surgery tomorrow. In addition, a CT of abdomen and pelvis demonstrated an enlarging hepatic mass. Previously is about 3 cm, now about 4.8 cm. Previous biopsy of this mass demonstrated cirrhosis. Since patient is going to be off of his Eliquis for the surgery, it would give us an opportunity to biopsy it on Friday. Otherwise patient has abdominal pain and nausea which has improved with NG tube. NG tube is draining brown matter. Patient denies any fever or chills, lightheadedness or dizziness, sore throat, chest pain, dyspnea, diarrhea, or dysuria. He does have chronic neuropathy. Home Medications Scheduled Alpha Lipoic Acid (Alpha Lipoic Acid) 200 Mg Tab, 200 MG PO BID, (Reported) Ascorbic Acid (Vitamin C) 500 Mg Cap, 500 MG PO DAILY, (Reported) Aspirin (Aspirin EC) 81 Mg Tablet.dr, 81 MG PO QHS, (Reported) Calcium Carbonate (Calcium) 500 Mg Tablet, 500 MG PO DAILY, (Reported) Cholecalciferol (Vitamin D3) (Vitamin D3) 1,000 Unit Tablet, 2,000 UNITS PO QHS, (Reported) Docusate Sodium (Docusate Sodium) 100 Mg Capsule, 200 MG PO BID, (Reported) L.acidoph/L.bulg/B.bif/S.therm (Naomi-Bid Caplet) 1 Each Tablet, 1 TAB PO TID, (Reported) Losartan Potassium (Losartan Potassium) 25 Mg Tablet, 25 MG PO DAILY, (Reported) Metformin HCl (Metformin HCl ER) 500 Mg Tab.er.24h, 500 MG PO QHS, (Reported) Nitrofurantoin Macrocrystal (Nitrofurantoin) 100 Mg Capsule, 100 MG PO DAILY, (Reported) Omeprazole (Omeprazole) 20 Mg Capsule.dr, 20 MG PO DAILY, (Reported) Polyethylene Glycol 3350 (Miralax) 119 Gm Powder, 17 GRAM PO DAILY, (Reported) MIX WITH 8 OUNCES OF WATER OR JUICE Rivaroxaban (Xarelto) 2.5 Mg Tablet, 2.5 MG PO BID, (Reported) Tamsulosin HCl (Flomax) 0.4 Mg Capsule, 0.4 MG PO QHS, (Reported) Scheduled PRN Ammonium Lactate (Ammonium Lactate) 12% Lotion, 1 DOSE TOP DAILY PRN for DRY SKIN, (Reported) APPLIES TO AREAS OF DRY SKIN Baclofen (Baclofen) 10 Mg Tablet, 5 MG PO TID PRN for MUSCLE SPASMS, (Reported) Fluticasone Propionate (Fluticasone Propionate) 16 Gm [place].susp, 2 SPRAY NARES DAILY PRN for CONGESTION, (Reported) Allergies Coded Allergies: gabapentin (Verified Adverse Reaction, Intermediate, elevates MS symptoms, 04/08/20) modafinil (Verified Adverse Reaction, Intermediate, elevate MS symptoms, 04/08/20) omeprazole (Verified Adverse Reaction, Intermediate, elevated MS symptoms, 04/08/20) Gmhnuae-Nuk-Hbe Reductase Inhibitor (Verified Adverse Reaction, Mild, "PASSES OUT", 04/08/20) glatiramer (copolymer 1) (Verified Adverse Reaction, Mild, weakness, 04/08/20) Past Medical History Medical History 1. Multiple sclerosis. 2. Arterial thrombosis 3. Diabetes mellitus. 4. Hypertension. 5. Cirrhosis 6. Sleep apnea 7. BPH status post TURP 8. Anemia Surgical History 1. TURP in 2008 2. Hernia repair June 2019 Family History Father: at the age of 85. History of diabetes Mother: at the age of 86. History of diabetes Social History * Smoker: former Smoker (quit 25 years ago) Alcohol: Denies Drugs: denies A-FIB/CHADSVASC A-FIB History Current/History of A-Fib/PAF?: No Review of Systems Constitutional: Denies: Chills, Fever Eyes: Denies: Vision change ENT: Denies: Head Aches Skin: Denies: Rash Pulmonary: Denies: Dyspnea Cardiovascular: Denies: Chest Pain Gastrointestinal: Reports: Nausea, Abdominal Pain; Denies: Diarrhea Genitourinary: Denies: Dysuria Musculoskeletal: Denies: Muscle Pain Neurological: Reports: Other Symptoms (paresthesias which are chronic) Psych: Denies: Anxiety, Depression Physical Examination General Exam: Positive: Alert, Cooperative, No Acute Distress Eye Exam: Positive: EOMI; Negative: Sclera icteric ENT Exam: Positive: Other ENT (NG tube in place) Neck Exam: Positive: Supple Chest Exam: Positive: Clear to auscultation Heart Exam: Positive: Tachycardic, Regular Rhythm Abdomen Exam: Positive: Tenderness, Other (obese) Extremity Exam: Positive: Edema (bilateral pitting) Neuro Exam: Positive: Cranial Nerves 3-12 NL Psych Exam: Positive: Mental status NL, Mood NL, Oriented x 3 Vital Signs Vital Signs Date Time Temp Pulse Resp B/P (MAP) Pulse Ox O2 Delivery O2 Flow Rate FiO2 04/08/20 10:56 98.4 105 20 136/70 (92) 92 Room Air Laboratory Data Labs 24H Laboratory Tests 2 04/08/20 05:56: Immature Granulocyte % (Auto) 0.5, Neutrophils (%) (Auto) 80.4H, Lymphocytes (%) (Auto) 13.1L, Monocytes (%) (Auto) 5.7H, Eosinophils (%) (Auto) 0.1, Basophils (%) (Auto) 0.2, Neutrophils # (Auto) 11.6H, Lymphocytes # (Auto) 1.9, Monocytes # (Auto) 0.8, Eosinophils # (Auto) 0.0, Basophils # (Auto) 0.0, Nucleated Red Blood Cells % (auto) 0.0, Prothrombin Time 14.2H, Prothromb Time International Ratio 1.07, Activated Partial Thromboplast Time 31.9, POC Glucose (Misc Panel) 143H, POC Sodium (Misc Panel) 139, POC Potassium (Misc Panel) 4.2, POC Chloride (Misc Panel) 99, POC Total CO2 (Misc Panel) 25.0, POC Blood Urea Nitrogen (Misc Panel 28H, POC Ionized Calcium (Misc Panel) 4.9, POC Creatinine (Misc Panel) 1.2, POC Hematocrit (Misc Panel) 52.0H, Total Bilirubin 0.7, Direct Bilirubin 0.2, Aspartate Amino Transf (AST/SGOT) 28, Alanine Aminotransferase (ALT/SGPT) 41, Alkaline Phosphatase 114, Total Creatine Kinase 109, Creatine Kinase MB 5.7H, Creatine Kinase MB Relative Index 5.23H, Troponin I < 0.02, Total Protein 8.8H, Albumin 4.2, Albumin/Globulin Ratio 0.9, Lipase 236 04/08/20 09:28: POC Lactate (Misc Panel) 1.03 04/08/20 09:53: Coronavirus (COVID-19)(PCR) NEGATIVE 04/08/20 12:04: Bedside Glucose (Misc Panel) 150H CBC/BMP Laboratory Tests 04/08/20 05:56 Assessment/Plan Mr. Smith is a 74-year-old male with diabetes, hypertension, and cirrhosis who is here with small bowel obstruction secondary to incarcerated inguinal hernia. He was seen by general surgery, Dr. Avitia. Planning to go to surgery tomorrow morning. Obtained CXR today, there is right lower lobe opacities which may be pneumonitis vs aspiration pneumonia. I feel that it is pneumonitis since the patient is saturating well at room air. Patient denies any dyspnea or cough. No clinical signs of pneumonia. As prophylaxis will cover with antibiotics, and recheck chest x-ray tomorrow morning. Plan / VTE VTE Prophylaxis Ordered?: Yes Plan Plan 1. SBO secondary to incarcerated hernia Seen on CT of the abdomen and pelvis -Gen. surgery, is following. Recommendations appreciated Continue NG tube and NPO status 2. Aspiration pneumonitis versus aspiration pneumonia Chest x-ray demonstrates left lower lobe opacities May be aspiration pneumonitis versus aspiration pneumonia More likely to be pneumonitis due to recent occurrence. No clinical signs of pneumonia. Denies fever or chills, dyspnea, cough. We will cover with Zosyn. Repeat chest x-ray tomorrow for final decision. 3. Hypertension Due to nothing by mouth status we will hold losartan When necessary IV hydralazine as needed 4. Diabetes mellitus Holding metformin Blood glucose checks every 6 hours 5. BPH Due to NPO status we will hold tamsulosin 6. Cirrhosis -Liver biopsy in past demonstrated cirrhosis -Consider 2g sodium diet when can tolerate diet 7. Liver mass -Enlarging liver mass. Consider biopsying on Friday since patient will be off of anticoagulation. 8. DVT prophylaxis SCDs and teds since planning for surgery tomorrow IBIS CAMPUZANO DO Apr 08, 2020 16:30
[2020-04-08 20:00] VITALS: BP 102/58
[2020-04-09] VITALS: BP 105/59
[2020-04-09] MEDS: NS 1,000 ML IV SCH ×2 (01:57→16:28)
[2020-04-09] MEDS: PIPERACILLIN/TAZOBACTAM SOD 4.5 GM in D5W MINI-BAG PLUS 50 ML IV SCH ×4 (01:57→19:59)
[2020-04-09 04:00] VITALS: BP 104/57
[2020-04-09 05:42] LABS: HEMATOCRIT 43.8 % (42.0-52.0); MEAN CORPUSCULAR HEMOGLOBIN 30.2 pg (27.0-33.0); MEAN CORPUSCULAR HGB CONC 32.6 g/dl (32.0-36.5); MEAN CORPUSCULAR VOLUME 92.6 fl (80.0-96.0); RED BLOOD COUNT 4.73 10^6/uL (4.30-6.10); WHITE BLOOD COUNT 16.7 10^3/uL (4.0-10.0)
[2020-04-09 05:50] LABS: HEMOGLOBIN 14.3 g/dl (13.5-17.5); PLATELET COUNT, AUTOMATED 215 10^3/uL (150-450)
[2020-04-09 06:14] LABS: ALBUMIN 2.9 GM/DL (3.2-5.2); BILIRUBIN,TOTAL 1.3 MG/DL (0.2-1.0); CALCIUM LEVEL 8.7 MG/DL (8.8-10.2); CREATININE FOR GFR 1.68 MG/DL (0.70-1.30); GLOMERULAR FILTRATION RATE 42.5 (>42); POTASSIUM SERUM 4.2 MEQ/L (3.5-5.1); TOTAL PROTEIN 7.2 GM/DL (6.4-8.2)
--- NOTE | 2020-04-09 07:39 | REPVR ---
PROCEDURE INFORMATION: Exam: XR Chest, 1 View Exam date and time: 04/09/2020 7:25 AM Age: 74 years old Clinical indication: Other: Re-eval pneumonitis vs pneumonia TECHNIQUE: Imaging protocol: XR of the chest Views: 1 view. COMPARISON: CR PORTABLE CHEST X-RAY 04/08/2020 10:19 AM FINDINGS: Tubes, catheters and devices: Feeding tube seen in the stomach. Lungs: There is bilateral lower lung zones, right more than left, infiltrates. Pleural space: Unremarkable. No pleural effusion. No pneumothorax. Heart/Mediastinum: Unremarkable. No cardiomegaly. Bones/joints: Unremarkable. IMPRESSION: 1. Bilateral, right more than left, lower lung zones infiltrates, overall grossly unchanged. 2. Feeding tube with its tip in the stomach. Electronically signed by: Praful Rodgers On 04/09/2020 07:38:23 AM
[2020-04-09 08:00] VITALS: BP 119/74
--- NOTE | 2020-04-09 08:42 | IPNPDOC ---
Text Note Date of Service The patient was seen on 04/09/20. NOTE No acute events overnight. He is coughing up a lot of phlegm and then he is s wallowing it and it is coming out his NGT. Denies nausea, emesis, or abd pains. He is passing lots of flatus, but no BMS. VSSAF NAD abd - soft, ND, NT, there is a small less than 1cm umbilical hernia that is currently partially reduced labs - below A) 74y/o male with MS, aspiration pneumonitis vs. pneumonia, and recent incarcerated umbilical hernia that results in a SBO that was reduced in the ER yesterday P) Due to the leukocytosis and continued productive cough, I will hold off on surgery for now. I will clamp the NG and start a clq diet. We will plan for surgery tomorrow afternoon if he improves. Jeromy Avitia DO VS,Fishbone, I+O VS, Fishbone, I+O Laboratory Tests 04/09/20 05:23 Vital Signs Date Time Temp Pulse Resp B/P (MAP) Pulse Ox O2 Delivery O2 Flow Rate FiO2 04/09/20 08:00 96.8 79 20 119/74 (89) 95 Room Air I&O- Last 24 Hours up to 6 AM 04/09/20 06:00 Intake Total 2100 ml Output Total 250 ml Balance 1850 ml HARDEEP AVITIA DO Apr 09, 2020 08:41
[2020-04-09 12:00] VITALS: BP 112/58
--- NOTE | 2020-04-09 15:20 | ECGEPIP ---
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
[2020-04-09 16:00] VITALS: BP 133/64
--- NOTE | 2020-04-09 19:49 | IPNPDOC ---
Subjective Date Seen The patient was seen on 04/09/20. Subjective Chief Complaint/HPI Mr. Smith is a 74-year-old male with multiple sclerosis, diabetes mellitus, hypertension, and cirrhosis who is here for projectile vomiting and abdominal pain found to have SBO secondary to incarcerated umbilical hernia. This morning, he had a productive cough with phlegm. Denies any fever/chills, chest pain, dyspnea, abdominal pain, or dysuria. Constitutional: Denies: Chills, Fever Pulmonary: Denies: Dyspnea Cardiovascular: Denies: Chest Pain Gastrointestinal: Denies: Nausea, Abdominal Pain Genitourinary: Denies: Dysuria Objective Physical Examination General Exam: Positive: Alert, Cooperative, No Acute Distress Eye Exam: Positive: EOMI; Negative: Sclera icteric ENT Exam: Positive: Other ENT (NG tube in place) Neck Exam: Positive: Supple Chest Exam: Positive: Clear to auscultation Heart Exam: Positive: Tachycardic, Regular Rhythm Abdomen Exam: Positive: Tenderness, Other (obese) Extremity Exam: Positive: Edema (bilateral pitting) Neuro Exam: Positive: Cranial Nerves 3-12 NL Psych Exam: Positive: Mental status NL, Mood NL, Oriented x 3 Assessment /Plan Assessment Mr. Smith is a 74-year-old male with diabetes, hypertension, and cirrhosis who is here with small bowel obstruction secondary to incarcerated inguinal hernia. He was seen by general surgery, Dr. Avitia. Planning to go to surgery tomorrow morning. Obtained CXR today, there is right lower lobe opacities which may be pneumonitis vs aspiration pneumonia. His WBC increased. CXR unchanged. Continue antibiotics. Possible surgery tomorrow afternoon. Plan/VTE VTE Prophylaxis Ordered?: Yes Plan 1. SBO secondary to incarcerated hernia Seen on CT of the abdomen and pelvis -Gen. surgery, is following. Recommendations appreciated 2. Aspiration pneumonitis versus aspiration pneumonia Chest x-ray demonstrates left lower lobe opacities May be aspiration pneumonitis versus aspiration pneumonia Will cover with Zosyn. 3. Hypertension Due to NPO status, holding losartan PRN IV hydralazine as needed -BP controlled 4. Diabetes mellitus Holding metformin Blood glucose checks every 6 hours 5. BPH Due to NPO status, holding tamsulosin 6. Cirrhosis -Liver biopsy in past demonstrated cirrhosis -Consider 2g sodium diet when can tolerate diet 7. Liver mass -Enlarging liver mass. Consider biopsying on Friday since patient will be off of anticoagulation. 8. DVT prophylaxis SCDs and teds since planning for surgery tomorrow Dispo: Possible surgery tomorrow VS, I&O, 24H, Fishbonjazzy Vital Signs/I&O Vital Signs Date Time Temp Pulse Resp B/P (MAP) Pulse Ox O2 Delivery O2 Flow Rate FiO2 04/09/20 16:00 97.2 90 20 133/64 (87) 94 Room Air I&O- Last 24 Hours up to 6 AM 04/09/20 06:00 Intake Total 2100 ml Output Total 250 ml Balance 1850 ml Laboratory Data 24H LABS Laboratory Tests 2 04/08/20 23:20: Bedside Glucose (Misc Panel) 147H 04/09/20 05:23: Nucleated Red Blood Cells % (auto) 0.0, Anion Gap 8, Glomerular Filtration Rate 42.5, Calcium Level 8.7L, Total Bilirubin 1.3#H, Aspartate Amino Transf (AST/SGOT) 42H, Alanine Aminotransferase (ALT/SGPT) 59, Alkaline Phosphatase 80, Total Protein 7.2, Albumin 2.9#L, Albumin/Globulin Ratio 0.7 CBC/BMP Laboratory Tests 04/09/20 05:23 IBIS CAMPUZANO DO Apr 09, 2020 19:49
[2020-04-09 20:00] VITALS: BP 137/65
[2020-04-10] VITALS: BP 142/83
[2020-04-10] MEDS: PIPERACILLIN/TAZOBACTAM SOD 4.5 GM in D5W MINI-BAG PLUS 50 ML IV SCH ×4 (01:12→20:35)
[2020-04-10 04:00] VITALS: BP 130/69
[2020-04-10 06:04] LABS: HEMATOCRIT 39.9 % (42.0-52.0); HEMOGLOBIN 13.1 g/dl (13.5-17.5); MEAN CORPUSCULAR HEMOGLOBIN 30.5 pg (27.0-33.0); MEAN CORPUSCULAR HGB CONC 32.8 g/dl (32.0-36.5); MEAN CORPUSCULAR VOLUME 92.8 fl (80.0-96.0); PLATELET COUNT, AUTOMATED 227 10^3/uL (150-450); WHITE BLOOD COUNT 12.8 10^3/uL (4.0-10.0)
[2020-04-10 06:24] LABS: ALBUMIN 2.6 GM/DL (3.2-5.2); BILIRUBIN,TOTAL 1.1 MG/DL (0.2-1.0); CALCIUM LEVEL 8.4 MG/DL (8.8-10.2); CREATININE FOR GFR 1.29 MG/DL (0.70-1.30); GLOMERULAR FILTRATION RATE 57.6 (>42); POTASSIUM SERUM 3.8 MEQ/L (3.5-5.1); TOTAL PROTEIN 6.2 GM/DL (6.4-8.2)
[2020-04-10 08:00] VITALS: BP 129/79
--- NOTE | 2020-04-10 08:01 | IPNPDOC ---
Text Note Date of Service The patient was seen on 04/10/20. NOTE No acute events overnight. Denies nausea, emesis, or abd pains. He is passing lots of flatus, and had a BM as well. He is still coughing up phlegm, but it is starting to be clearer. VSSAF NAD abd - soft, ND, NT, there is a small less than 1cm umbilical hernia that is currently partially reduced labs - below A) 74y/o male with MS, aspiration pneumonitis vs. pneumonia, and recent incarcerated umbilical hernia that results in a SBO that was reduced in the ER P) Due to the leukocytosis and continued productive cough, I will hold off on surgery for this hospitalization. His chest xray is slightyl improved, but there are still infiltrates present and I am worried about making it worse with intubation for a surgery. I will recommend that he go home with abx, and see me to have this scheduled as an outpatient. Jeromy Avitia DO VS,Sammi, I+O VS, Sammi, I+O Laboratory Tests 04/10/20 05:39 Vital Signs Date Time Temp Pulse Resp B/P (MAP) Pulse Ox O2 Delivery O2 Flow Rate FiO2 04/10/20 04:00 98.7 96 18 130/69 (89) 92 Room Air I&O- Last 24 Hours up to 6 AM 04/10/20 05:59 Intake Total 1070 ml Output Total 250 ml Balance 820 ml HARDEEP AVITIA DO Apr 10, 2020 08:01
[2020-04-10] MEDS ORDERED: SLF 3 ML SYR IV PRN (11:15)
[2020-04-10 12:00] VITALS: BP 120/67
[2020-04-10] MEDS: SLF 3 ML SYR IV SCH ×2 (12:50→20:35)
[2020-04-10 16:00] VITALS: BP 130/74
[2020-04-10] MEDS ORDERED: FLUTICASONE PROP 0.05% NASAL SPRAY 16 GM (FLONASE) NARES PRN (17:45)
[2020-04-10] MEDS ORDERED: LACTIC ACID 12% LOTION 225 GM BTL TOP PRN (17:45)
[2020-04-10] MEDS ORDERED: HEPARIN SOD (PORCINE) 5000UNITS/ML 1ML VIAL/SYRINGE SQ SCH (17:45)
[2020-04-10] MEDS ORDERED: BACLOFEN 5MG PER 1/2 TABLET PO PRN (17:45)
[2020-04-10] MEDS ORDERED: PILL CUTTER 1 EACH XX PRN ×2 (18:15)
[2020-04-10] MEDS: RIVAROXABAN 10 MG TAB (XARELTO) PO SCH (18:16)
--- NOTE | 2020-04-10 18:53 | IPNPDOC ---
Subjective Date Seen The patient was seen on 04/10/20. Subjective Chief Complaint/HPI Mr. Smith is a 74-year-old male with multiple sclerosis, diabetes mellitus, hypertension, and cirrhosis who is here for projectile vomiting and abdominal pain found to have SBO secondary to incarcerated umbilical hernia. Today, he was passing gas. They were able to remove NGT and he tolerated a diet. Surgery plan to see outpatient when PNA resolves. He did not pass physical therapy yet. May need rehab before home. Otherwise, he was able to eat a solid diet. Denies any fever/chills, chest pain, dyspnea, abdominal pain, or dysuria. Constitutional: Denies: Chills, Fever Pulmonary: Denies: Dyspnea Cardiovascular: Denies: Chest Pain Gastrointestinal: Denies: Abdominal Pain Genitourinary: Denies: Dysuria Objective Physical Examination General Exam: Positive: Alert, Cooperative, No Acute Distress Eye Exam: Positive: EOMI; Negative: Sclera icteric Neck Exam: Positive: Supple Chest Exam: Positive: Clear to auscultation Heart Exam: Positive: Tachycardic, Regular Rhythm Abdomen Exam: Positive: Tenderness, Other (obese) Extremity Exam: Positive: Edema (bilateral pitting) Neuro Exam: Positive: Cranial Nerves 3-12 NL Psych Exam: Positive: Mental status NL, Mood NL, Oriented x 3 Assessment /Plan Assessment Mr. Smith is a 74-year-old male with diabetes, hypertension, and cirrhosis who is here with small bowel obstruction secondary to incarcerated umbilical hernia. He was seen by general surgery, Dr. Avitia. Dr. Avitia was able to reduce the umbilical hernia. Patient was on NGT for 2 days, before started to pass gas. Today, the NGT was removed and he tolerated a diet. Surgery plan to see him outpatient when PNA clears up. Otherwise, he did not pass physical therapy. Plan/VTE VTE Prophylaxis Ordered?: Yes Plan 1. SBO secondary to incarcerated hernia Seen on CT of the abdomen and pelvis -Gen. surgery, is following. Recommendations appreciated - Resolved, he was able to tolerate a diet and passing gas. Surgery would like to see him outpatient 2. Aspiration pneumonia Chest x-ray demonstrates left lower lobe opacities Will cover with Zosyn. -Still has leukocytosis, can switch to PO antibiotics when leukocytosis resolves. 3. Hypertension Restarted losartan 4. Diabetes mellitus Holding metformin On sliding scale insulin 5. BPH Restarted tamsulosin 6. Cirrhosis -Liver biopsy in past demonstrated cirrhosis -Euvolemic, continue to monitor 7. Liver mass -Enlarging liver mass. Outpatient follow up for biopsy 8. DVT prophylaxis Patient chronically on low dose Xarelto (2.5mg BID). Restart Xarelto as no surgery at this time Dispo: May need rehab before discharge. Surgery (Dr. Avitia) to see outpatient after aspiration PNA resolves. Consider liver biopsy around time of surgery. VS, I&O, 24H, Fishbone Vital Signs/I&O Vital Signs Date Time Temp Pulse Resp B/P (MAP) Pulse Ox O2 Delivery O2 Flow Rate FiO2 04/10/20 16:00 98.5 85 18 130/74 (92) 99 Room Air I&O- Last 24 Hours up to 6 AM 04/10/20 06:00 Intake Total 920 ml Output Total 0 ml Balance 920 ml Laboratory Data 24H LABS Laboratory Tests 2 04/09/20 23:37: Bedside Glucose (Misc Panel) 107 04/10/20 05:39: Nucleated Red Blood Cells % (auto) 0.0, Anion Gap 7L, Glomerular Filtration Rate 57.6, Calcium Level 8.4L, Total Bilirubin 1.1H, Aspartate Amino Transf (AST/SGOT) 33, Alanine Aminotransferase (ALT/SGPT) 43, Alkaline Phosphatase 76, Total Protein 6.2L, Albumin 2.6L, Albumin/Globulin Ratio 0.7 CBC/BMP Laboratory Tests 04/10/20 05:39 IBIS CAMPUZANO DO Apr 10, 2020 18:53
[2020-04-10 20:00] VITALS: BP 151/70
[2020-04-10] MEDS: VITAMIN D 1,000 INTERNATIONAL UNITS TABLET PO SCH (20:35)
[2020-04-10] MEDS: DOCUSATE SODIUM 100 MG CAP PO SCH (20:35)
[2020-04-10] MEDS: HumaLOG INSULIN (NovoLOG) PER UNIT SC SCH (20:35)
[2020-04-10] MEDS: TAMSULOSIN 0.4 MG CAP PO SCH (20:35)
[2020-04-10] MEDS: ASPIRIN 81 MG ENTERIC TAB PO SCH (20:35)
[2020-04-10] MEDS: LACTOBACILLUS ACIDOPHILUS CAP (BACID) PO SCH (20:35)
[2020-04-11] VITALS: BP 116/65
[2020-04-11] MEDS: SLF 3 ML SYR IV SCH ×3 (02:07→19:54)
[2020-04-11] MEDS: PIPERACILLIN/TAZOBACTAM SOD 4.5 GM in D5W MINI-BAG PLUS 50 ML IV SCH ×4 (02:07→19:53)
[2020-04-11 04:00] VITALS: BP 125/68
[2020-04-11 05:11] LABS: HEMATOCRIT 36.5 % (42.0-52.0); HEMOGLOBIN 12.1 g/dl (13.5-17.5); MEAN CORPUSCULAR HEMOGLOBIN 30.6 pg (27.0-33.0); MEAN CORPUSCULAR HGB CONC 33.2 g/dl (32.0-36.5); MEAN CORPUSCULAR VOLUME 92.4 fl (80.0-96.0); PLATELET COUNT, AUTOMATED 230 10^3/uL (150-450); RED BLOOD COUNT 3.95 10^6/uL (4.30-6.10); WHITE BLOOD COUNT 8.8 10^3/uL (4.0-10.0)
[2020-04-11 05:37] LABS: CALCIUM LEVEL 8.2 MG/DL (8.8-10.2); CREATININE FOR GFR 1.36 MG/DL (0.70-1.30); GLOMERULAR FILTRATION RATE 54.2 (>42); POTASSIUM SERUM 3.6 MEQ/L (3.5-5.1)
[2020-04-11 08:00] VITALS: BP 147/81
[2020-04-11] MEDS: HumaLOG INSULIN (NovoLOG) PER UNIT SC SCH ×4 (08:38→19:52)
[2020-04-11] MEDS: OYSTER SHELL CALCIUM 500 MG TAB PO SCH (08:38)
[2020-04-11] MEDS: ASCORBIC ACID 500 MG TAB PO SCH (08:38)
[2020-04-11] MEDS: DOCUSATE SODIUM 100 MG CAP PO SCH ×2 (08:38→19:54)
[2020-04-11] MEDS: LOSARTAN 25 MG TAB PO SCH (08:39)
[2020-04-11] MEDS: LACTOBACILLUS ACIDOPHILUS CAP (BACID) PO SCH ×3 (08:39→19:54)
[2020-04-11] MEDS: RIVAROXABAN 10 MG TAB (XARELTO) PO SCH ×2 (08:50→17:30)
[2020-04-11 12:00] VITALS: BP 140/81
[2020-04-11 16:00] VITALS: BP 164/78
--- NOTE | 2020-04-11 16:22 | CR ---
DATE OF CONSULTATION: 04/08/2020 CHIEF COMPLAINT: Incarcerated umbilical hernia with bowel obstruction. HISTORY OF PRESENT ILLNESS: Patient is a 74-year-old male with a history of multiple sclerosis (MS), diabetes, hypertension, and cirrhosis. He presented to the emergency room due to having projectile vomiting and abdominal pain. The pain started late in the evening before and then he came in in the middle of the night due to the vomiting. CT scan showed small bowel obstruction secondary to incarcerated umbilical hernia. He had never had any problems with his hernia in the past. I did do an incarcerated inguinal hernia repair on him almost a year ago but he has never had any problems with his belly button in the past. He has had multiple episodes of nausea and vomiting prior to coming to the emergency room. Currently, he has a nasogastric (NG) tube in place and has a large volume of feculent output through his NG tube. He also has some erythema around the belly button as well as some tenderness there. He denies any recent changes in activity, diet, or medications. No recent trauma to the abdomen. No recent heavy lifting of any kind. During my evaluation, I pressed on the hernia and I was able to successfully reduce it which did relieve his pain, and point of care lactic acid at the bedside was normal. PAST MEDICAL HISTORY: MS, diabetes, hypertension, cirrhosis, sleep apnea, BPH. PAST SURGICAL HISTORY: Transurethral resection of the prostate (TURP) and left inguinal hernia repair. FAMILY HISTORY: Noncontributory. SOCIAL HISTORY: Denies drug, alcohol, or tobacco abuse. ALLERGIES: Please see medication reconciliation. MEDICATIONS: Please see medication reconciliation. REVIEW OF SYSTEMS: Pertinent positives and negatives as stated in the history of present illness (HPI). PHYSICAL EXAMINATION: General: Alert and oriented times three, no acute distress. Vital signs: Pulse 95, respirations 18, blood pressure 119/63, pulse oximetry 94% on room air. HEENT: Pupils equally round and reactive to light and accommodation. Heart: S1, S2, regular rate and rhythm. Lungs: Clear to auscultation bilaterally. Abdomen: Soft, tender to palpation at the umbilicus only. There was a small, roughly 2 cm, hard lump right in the base of the umbilicus. With some steady pressure I was able to successfully reduce that. There is still a slight amount of fat that was on the superior side of that that I could not reduce, but the hard lump that was there was reduced. Once it was reduced, I was able to feel the actual defect which appears to be roughly 6-8 mm in diameter. The rest of the abdomen was soft, nontender. Extremities: No clubbing, cyanosis, or edema. LABORATORY DATA: White count 14.4, hemoglobin 16.6, platelets 330, lactic acid was 1.03, potassium 4.2, creatinine 1.2. IMAGING: CT abdomen and pelvis showed mechanical small bowel obstruction with a transition point at the loop of small bowel herniating into the preexisting small periumbilical hernia. There is a large mass in the hepatic segment 8 in the background of suspected cirrhosis concerning for hepatocellular carcinoma. ASSESSMENT AND PLAN: Patient is a 74-year-old male with a known history of a hepatic mass currently presenting with small bowel obstruction due to incarcerated umbilical hernia. CT findings are positive for the hernia as well as an increase in the size of the hepatic mass. At this time, recommendation is to keep him on nothing by mouth, keep the nasogastric (NG) to suction, keep holding his blood thinners, plan for surgical repair of the hernia as well as possible liver biopsy during this hospital stay. Will tentatively place him on the operating room (OR) schedule for tomorrow morning pending improvement in his clinical status. Otherwise, we will push it back and plan on Friday or Friday. I explained this in detail with him as well as the hospitalist on board, they both are in agreement, and I will see him in the morning. AMARILIS
[2020-04-11] MEDS: ASPIRIN 81 MG ENTERIC TAB PO SCH (19:54)
[2020-04-11] MEDS: TAMSULOSIN 0.4 MG CAP PO SCH (19:54)
[2020-04-11] MEDS: VITAMIN D 1,000 INTERNATIONAL UNITS TABLET PO SCH (19:54)
[2020-04-11 20:00] VITALS: BP 150/78
[2020-04-12] VITALS (7 sets, daily range): BP systolic 132–172; BP diastolic 71–83
[2020-04-12] MEDS: ACETAMINOPHEN TAB 650MG DOSE (2X325MG) PO PRN ×2 (00:14→23:57)
[2020-04-12] MEDS: PIPERACILLIN/TAZOBACTAM SOD 4.5 GM in D5W MINI-BAG PLUS 50 ML IV SCH (02:32)
[2020-04-12] MEDS: SLF 3 ML SYR IV SCH ×3 (04:38→21:29)
[2020-04-12 04:57] LABS: MEAN CORPUSCULAR HEMOGLOBIN 29.9 pg (27.0-33.0); MEAN CORPUSCULAR HGB CONC 32.4 g/dl (32.0-36.5); MEAN CORPUSCULAR VOLUME 92.3 fl (80.0-96.0); PLATELET COUNT, AUTOMATED 263 10^3/uL (150-450); RED BLOOD COUNT 4.01 10^6/uL (4.30-6.10); WHITE BLOOD COUNT 6.7 10^3/uL (4.0-10.0)
[2020-04-12 05:15] LABS: CALCIUM LEVEL 8.6 MG/DL (8.8-10.2); CREATININE FOR GFR 1.33 MG/DL (0.70-1.30); GLOMERULAR FILTRATION RATE 55.7 (>42); POTASSIUM SERUM 3.4 MEQ/L (3.5-5.1)
[2020-04-12] MEDS ORDERED: POTASSIUM CHLORIDE 10 MEQ SR TABLET PO ONE (07:45)
--- NOTE | 2020-04-12 07:48 | IPN ---
DATE: 04/11/2020 SUBJECTIVE: Hermilo was seen in the Progressive Care Unit (PCU) admitted with small bowel obstruction. Taking p.o. well. Denies any new issues today. He does have a liver mass as previously biopsied last May. No sign of malignancy. 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 PHYSICAL EXAMINATION: Vital signs: Blood pressure 147/81. Vital signs stable. General: Alert, conversant, no distress. He is at his baseline. Lungs are clear. Heart regular rate and rhythm. Abdomen soft and nontender. No peripheral edema. IMPRESSION: Small bowel obstruction. PLAN: 1. He is eating, taking p.o. well. At this point it is just a disposition question. I spoke with his physical therapist. She will sense whether she thinks he could be home safely. He has a birthday for both his and his wifes as well as an anniversary coming up this weekend. He would like to get home for this. 2. Aspiration pneumonia. He is on Zosyn. This could be switched to Augmentin or other antibiotic on day of discharge. 3. Liver mass. Previously biopsied and negative. Alpha fetoprotein ordered. I will deal with the rest of this as an outpatient. AMARILIS
[2020-04-12] MEDS: HumaLOG INSULIN (NovoLOG) PER UNIT SC SCH ×4 (08:25→21:00)
[2020-04-12] MEDS: OYSTER SHELL CALCIUM 500 MG TAB PO SCH (08:25)
[2020-04-12] MEDS: RIVAROXABAN 10 MG TAB (XARELTO) PO SCH ×2 (08:26→18:00)
[2020-04-12] MEDS: LOSARTAN 25 MG TAB PO SCH (08:26)
[2020-04-12] MEDS: ASCORBIC ACID 500 MG TAB PO SCH (08:26)
[2020-04-12] MEDS: LACTOBACILLUS ACIDOPHILUS CAP (BACID) PO SCH ×3 (08:26→21:00)
[2020-04-12] MEDS: DOCUSATE SODIUM 100 MG CAP PO SCH ×2 (08:27→21:00)
[2020-04-12] MEDS: AUGMENTIN 875 MG TAB PO SCH ×2 (11:10→21:00)
[2020-04-12] MEDS: BETAMETHASONE DIP 0.05% OINT 15 GM TOP SCH ×2 (11:11→21:00)
[2020-04-12] MEDS: TAMSULOSIN 0.4 MG CAP PO SCH (21:00)
[2020-04-12] MEDS: ASPIRIN 81 MG ENTERIC TAB PO SCH (21:00)
[2020-04-12] MEDS: VITAMIN D 1,000 INTERNATIONAL UNITS TABLET PO SCH (21:00)
[2020-04-13] VITALS: BP 140/70
[2020-04-13 04:00] VITALS: BP 145/77
[2020-04-13 05:18] LABS: HEMATOCRIT 36.4 % (42.0-52.0); MEAN CORPUSCULAR HEMOGLOBIN 30.3 pg (27.0-33.0); MEAN CORPUSCULAR VOLUME 91.9 fl (80.0-96.0); PLATELET COUNT, AUTOMATED 245 10^3/uL (150-450); RED BLOOD COUNT 3.96 10^6/uL (4.30-6.10); WHITE BLOOD COUNT 9.5 10^3/uL (4.0-10.0)
[2020-04-13] MEDS: SLF 3 ML SYR IV SCH (05:31)
[2020-04-13 05:42] LABS: BLOOD UREA NITROGEN 21 MG/DL (7-18); CALCIUM LEVEL 8.4 MG/DL (8.8-10.2); CARBON DIOXIDE LEVEL 24 MEQ/L (21-32); CHLORIDE LEVEL 113 MEQ/L (98-107); CREATININE FOR GFR 1.04 MG/DL (0.70-1.30); GLOMERULAR FILTRATION RATE > 60.0 (>42); GLUCOSE, FASTING 134 MG/DL (70-100); POTASSIUM SERUM 3.7 MEQ/L (3.5-5.1); SODIUM LEVEL 143 MEQ/L (136-145)
[2020-04-13 08:00] VITALS: BP 140/80
[2020-04-13] MEDS: HumaLOG INSULIN (NovoLOG) PER UNIT SC SCH (08:17)
[2020-04-13] MEDS: RIVAROXABAN 10 MG TAB (XARELTO) PO SCH (08:18)
[2020-04-13] MEDS: DOCUSATE SODIUM 100 MG CAP PO SCH (08:18)
[2020-04-13] MEDS: LACTOBACILLUS ACIDOPHILUS CAP (BACID) PO SCH (08:18)
[2020-04-13] MEDS: OYSTER SHELL CALCIUM 500 MG TAB PO SCH (08:18)
[2020-04-13] MEDS: ASCORBIC ACID 500 MG TAB PO SCH (08:18)
[2020-04-13] MEDS: LOSARTAN 25 MG TAB PO SCH (08:18)
[2020-04-13] MEDS: AUGMENTIN 875 MG TAB PO SCH (08:18)
[2020-04-13] MEDS: BETAMETHASONE DIP 0.05% OINT 15 GM TOP SCH (08:19)
[2020-04-13] MEDS ORDERED: AMOX875T2 PO (09:24)
[2020-04-13] MEDS ORDERED: Pill Cutter XX (09:24)
--- NOTE | 2020-04-13 09:43 | IPN ---
DATE: 04/12/2020 SUBJECTIVE: Hermilo has made significant improvement with physical therapy yesterday. I spoke with his physical therapist. She expects he will be able to go home tomorrow. He is working with occupational therapy today. There are no bowel issues, eating well. He does have an eczematous rash on his right elbow and he is asking for an incentive spirometer. PHYSICAL EXAMINATION: Vital signs: Blood pressure 136/77, pulse 72, respirations 18, 98.7 degrees. General: Alert, conversant, no distress. Lungs are clear. Heart regular rate and rhythm. Abdomen soft and nontender. Trace peripheral edema. LABS: White count 6.7, hemoglobin 12, platelets 263. Sodium 146, potassium 3.4, BUN 25, creatinine 1.3, glucose 116. Alpha fetoprotein was 2.8. Albumin was 2.4 which is actually down from previous (5.4, 03/2019 and 5.7, 05/2019) IMPRESSION: 1. Bowel obstruction, resolved. He is taking a diet well. I am stopping his antibiotic. 2. Aspiration pneumonia. His white count is normal. His fever is gone. We will stop his IV antibiotic, put him on a few days of Augmentin. 3. Hypokalemia. Supplemental potassium has been given. 4. Diabetes on a sliding scale of insulin. Tomorrow he could be discharged on his diabetic regimen. 5. Hypertension well controlled on current regimen. 6. Cirrhosis. He has a liver mass on imaging studies. He has previously had this biopsied and there was no sign of hepatoma. His alpha fetoprotein is actually lower than baseline which is reassuring. I am not sure he needs another biopsy but we can discuss this further as an outpatient. 7. Recurrent venous thrombosis. Continue his low dose Xarelto 2.5 mg twice a day. PLAN: I have been communicating with his daughter Elsa. We expect discharge tomorrow. edited: 05/01/2020 [id number] tkf RONITD
--- NOTE | 2020-04-13 09:47 | REP ---
PORTABLE CHEST X-RAY: SINGLE VIEW HISTORY: Reevaluate pneumonia. COMPARISON: Made with chest x-ray from 04/09/[address] images from 04/08/2020. FINDINGS: A nasogastric tube enters the left upper quadrant as before. Monitoring electrodes are seen. There is some improvement in aeration in the right lower lobe since yesterdays radiograph. There is plate-like atelectasis in the left base, which is a little more prominent. No new infiltrate is seen. Pleural angles are sharp. Heart size is unchanged. IMPRESSION: Improved aeration right base. Plate-like atelectasis left base. MTDD
--- NOTE | 2020-04-13 22:35 | DS.PDOC ---
Discharge Summary General Date of Admission Apr 08, 2020 at 09:52 Date of Discharge April 13, 2020 Attending Physician: IBIS CAMPUZANO DO Specialist/Consultants Involve General Surgery, Dr. Avitia Discharge Summary PROCEDURES PERFORMED DURING STAY: None ADMITTING DIAGNOSES: 1. SBO secondary to incarcerated hernia 2. Aspiration pneumonia 3. Hypertension 4. Diabetes mellitus 5. BPH 6. Cirrhosis 7. Liver mass DISCHARGE DIAGNOSES: 1. SBO secondary to incarcerated hernia 2. Aspiration pneumonia 3. Hypertension 4. Diabetes mellitus 5. BPH 6. Cirrhosis 7. Liver mass 8. Hypokalemia 9. Recurrent venous thrombosis COMPLICATIONS/CHIEF COMPLAINT: SBO 2/2 incarcerated hernia HISTORY OF PRESENT ILLNESS: Mr. Smith is a 74-year-old male with multiple sclerosis, diabetes mellitus, hypertension, and cirrhosis who is here for projectile vomiting and abdominal pain found to have SBO secondary to incarcerated umbilical hernia. He's never had an SBO before in the past, he has had abdominal surgeries in the past. He tells me that he had a hernia repair in June 2019. His symptoms began yesterday morning. He had abdominal pain with nausea. Subsequently ended up having projectile vomiting. He does not know how many times he has vomited, but he does not remember seeing any blood in his emesis. He came to the ED today. CT of abdomen and pelvis demonstrated m echanical small bowel obstruction with transition point at a loop of small bowel herniating into a pre-existing small periumbilical hernia. Lactic acid was within normal. Gen. surgery, Dr. Avitia, was consulted. He evaluated the patient in the ED. He is able to reduce umbilical hernia. Patient was put on NG tube and was planned for surgery. NG tube improved the nausea and abdominal pain. NG tube was draining greenish/brownish fluid. Patient denies any fever/chills, chest pain, dyspnea, or dysuria. In addition, a CT of abdomen and pelvis demonstrated an enlarging hepatic mass. Previously is about 3 cm, now about 4.8 cm. Previous biopsy of this mass demonstrated cirrhosis. Surgery had mentioned the possibility of biopsying this mass again since he would be off Eliquis for the SBO HOSPITAL COURSE: During his hospitalization, his chest XR demonstrated multifocal opacities which may have been aspiration pneumonitis vs aspiration pneumonia. This delayed his procedure to the next day. Repeat imaging still demonstrated the opacities and his WBC was still elevated. General surgery opted to do his procedure outpatient after his pneumonia resolved. He was put on antibiotics and his leukocytes trended downwards. NGT was removed and he was able to tolerate a diet and have bowel movements. Physical therapy worked with him and recommended home physical therapy. This morning, he felt well. Denies any fever/chills, chest pain, dyspnea, abdominal pain, or dysuria. He felt ready for home and was subsequently discharged home. DISCHARGE MEDICATIONS: Please see below. ALLERGIES: Please see below. PHYSICAL EXAMINATION ON DISCHARGE: VITAL SIGNS: Please see below. GENERAL: Comfortable, in no apparent distress. HEENT: Head normocephalic/atraumatic, EOMI, sclera clear. NECK: Supple, no JVD. RESPIRATORY: Lungs clear to auscultation bilaterally, no rales, wheeze or rhonchi. CARDIOVASCULAR: Regular rate and rhythm. ABDOMEN: Soft, nontender, no guarding or rebound tenderness. Normal bowel sounds. MUSCLE SKELETAL: Muscle strength 5/5 in all extremities. NEUROLOGICAL: CN 312 grossly intact, no focal deficits noted. PSYCHOLOGICAL: Normal mood and affect LABORATORY DATA: Please see below. IMAGING: CT abd/pelvis: 1. Mechanical small bowel obstruction with transition point at a loop of small bowel herniated into the pre-existing small periumbilical hernia. 2. Large mass in hepatic segment 8 on a background of suspected cirrhosis. This is concerning for hepatocellular carcinoma, recommend multiphasic liver MRI or CT on a nonemergent basis for further evaluation. CXR: 1. Bilateral, right more than left, lower lung zones infiltrates, overall grossly unchanged. PROGNOSIS: Stable ACTIVITY: As tolerated. DIET: Carbohydrate consistent DISCHARGE PLAN: Home with home services DISPOSITION: 06 Home Health Service. DISCHARGE INSTRUCTIONS: 1. Follow up with your PCP in a week and discuss possible liver biopsy 2. Follow up with the surgery in a week 3. Continue antibiotics until completed DISCHARGE CONDITION: Stable Total time spent on discharge planning, discharge summary, and medication reconciliation 45 minutes Vital Signs/I&Os Vital Signs Date Time Temp Pulse Resp B/P (MAP) Pulse Ox O2 Delivery O2 Flow Rate FiO2 04/13/20 08:00 98.5 91 20 140/80 (100) 93 Room Air I&O- Last 24 Hours up to 6 AM 04/13/20 06:00 Intake Total 1380 ml Output Total 0 ml Balance 1380 ml Laboratory Data Labs 24H Laboratory Tests 2 04/13/20 04:46: Nucleated Red Blood Cells % (auto) 0.0, Anion Gap 6L, Glomerular Filtration Rate > 60.0, Calcium Level 8.4L CBC/BMP Laboratory Tests 04/13/20 04:46 Discharge Medications Scheduled Alpha Lipoic Acid (Alpha Lipoic Acid) 200 Mg Tab, 200 MG PO BID, (Reported) Amoxicillin/Potassium Clav (Amox-Clav 875-125 mg Tablet) 1 Each Tablet, 875 MG PO BID Ascorbic Acid (Vitamin C) 500 Mg Cap, 500 MG PO DAILY, (Reported) Aspirin (Aspirin EC) 81 Mg Tablet.dr, 81 MG PO QHS, (Reported) Calcium Carbonate (Calcium) 500 Mg Tablet, 500 MG PO DAILY, (Reported) Cholecalciferol (Vitamin D3) (Vitamin D3) 1,000 Unit Tablet, 2,000 UNITS PO QHS, (Reported) Docusate Sodium (Docusate Sodium) 100 Mg Capsule, 200 MG PO BID, (Reported) L.acidoph/L.bulg/B.bif/S.therm (Naomi-Bid Caplet) 1 Each Tablet, 1 TAB PO TID, (Reported) Losartan Potassium (Losartan Potassium) 25 Mg Tablet, 25 MG PO DAILY, (Reported) Metformin HCl (Metformin HCl ER) 500 Mg Tab.er.24h, 500 MG PO QHS, (Reported) Omeprazole (Omeprazole) 20 Mg Capsule.dr, 20 MG PO DAILY, (Reported) Rivaroxaban (Xarelto) 2.5 Mg Tablet, 2.5 MG PO BID, (Reported) Tamsulosin HCl (Flomax) 0.4 Mg Capsule, 0.4 MG PO QHS, (Reported) Scheduled PRN Ammonium Lactate (Ammonium Lactate) 12% Lotion, 1 DOSE TOP DAILY PRN for DRY SKIN, (Reported) APPLIES TO AREAS OF DRY SKIN Baclofen (Baclofen) 10 Mg Tablet, 5 MG PO TID PRN for MUSCLE SPASMS, (Reported) Fluticasone Propionate (Fluticasone Propionate) 16 Gm [place].susp, 2 SPRAY NARES DAILY PRN for CONGESTION, (Reported) [Pill Cutter] 1 EACH EA, 1 EACH XX ASDIRECTED PRN for TO SPLIT MEDICATION Allergies Coded Allergies: gabapentin (Verified Adverse Reaction, Intermediate, elevates MS symptoms, 04/08/20) modafinil (Verified Adverse Reaction, Intermediate, elevate MS symptoms, 04/08/20) omeprazole (Verified Adverse Reaction, Intermediate, elevated MS symptoms, 04/08/20) Btblnpv-Bvz-Hnc Reductase Inhibitor (Verified Adverse Reaction, Mild, "PASSES OUT", 04/08/20) glatiramer (copolymer 1) (Verified Adverse Reaction, Mild, weakness, 04/08/20) IBIS CAMPUZANO DO Apr 13, 2020 21:29
[2020-04-25] MEDS ORDERED: MACR100C43 PO (11:18)
== END 2020-04-13 11:55 | disposition home health service (06) | DRG 393 ==
LOC: M ED 04:35 → M ED INP 09:52 → ENRESERV 10:17 → M PCU 11:12
PROVIDERS: ADMIT Internal Medicine; ATTEND Internal Medicine
DX: K42.0 Umbilical hernia with obstruction, without gangrene (principal); J69.0 Pneumonitis due to inhalation of food and vomit; N40.0 Benign prostatic hyperplasia without lower urinary tract symptoms; G35 Multiple sclerosis; E87.6 Hypokalemia; E11.9 Type 2 diabetes mellitus without complications; G47.30 Sleep apnea, unspecified; K76.89 Other specified diseases of liver; I10 Essential (primary) hypertension; K74.60 Unspecified cirrhosis of liver; Z79.82 Long term (current) use of aspirin; Z79.84 Long term (current) use of oral hypoglycemic drugs; Z79.02 Long term (current) use of antithrombotics/antiplatelets; Z79.899 Other long term (current) drug therapy; Z88.8 Allergy status to other drugs, medicaments and biological substances; Z86.718 Personal history of other venous thrombosis and embolism

== ENCOUNTER → 2020-04-23 | Outpatient (CLI) | payer MEDICARE ==
[~2020-04-23] MED LIST changes: +D31000TA2 PO; +LEVO500T3 PO; +LOSA25TA14 PO; +MACR100C43 PO; +METF-838 PO; +NITR-67 PO; +OMEP-218 PO; +Pill Cutter XX
== END ==
LOC: M LABSMTC 09:44
PROVIDERS: ATTEND Anesthesiology
DX: Z01.812 Encounter for preprocedural laboratory examination (principal); Z20.828 Contact with and (suspected) exposure to other viral communicable diseases
CPT/HCPCS: C9803; U0003

== ENCOUNTER → 2020-04-25 | Outpatient (CLI) | payer MEDICARE ==
--- NOTE | 2020-04-27 10:39 | REP ---
CHEST X-RAY CLINICAL: Community-acquired pneumonia. TECHNIQUE: PA and lateral. COMPARISON: 04/09/2020 FINDINGS: Moderate right lower lobe and milder left lower lobe air space disease consistent with continued multifocal pneumonia, and correlation is required. No effusion. No pneumothorax. Mediastinum and cardiac silhouette stable. Skeletal structures intact. IMPRESSION: Bibasilar infiltrates (right greater than left) consistent with continued multifocal pneumonia. Follow up required. [facility]
== END ==
LOC: M WUC 11:41
PROVIDERS: ATTEND Family Medicine
DX: J18.9 Pneumonia, unspecified organism (principal)

== ENCOUNTER 2020-04-28 11:06 | Day surgery (SDC) | payer MEDICARE ==
[~2020-04-28] VITALS: Ht 175.3 cm; Wt 71.2 kg
[2020-04-28] VITALS (8 sets, daily range): BP systolic 147–179; BP diastolic 85–98
[~2020-04-28 11:06] MED LIST changes: -LEVO500T3 PO; +LR 1,000 ML IV ONE; +ceFAZolin SOD 2 GM in IV 1 EA IV ONE
[2020-04-28] MEDS ORDERED: ROCURONIUM BROMIDE 50 MG/5 ML VIAL As Ordered ONE (12:38)
[2020-04-28] MEDS ORDERED: LIDOCAINE 2% 100MG/5ML SDV (FOR ANES.) As Ordered ONE (12:39)
[2020-04-28] MEDS ORDERED: fentaNYL 250 MCG/5 ML INJECTION (J3010) As Ordered ONE (12:39)
[2020-04-28] MEDS ORDERED: propofoL 200 MG/20 ML VIAL As Ordered ONE (12:39)
[2020-04-28] MEDS ORDERED: MIDAZOLAM INJ 2MG/2ML VIAL (J2250 PER 1MG) As Ordered ONE (12:39)
[2020-04-28] MEDS ORDERED: ASPI81CH33 PO (12:47)
[2020-04-28] MEDS ORDERED: BUPIVACAINE/EPIN 0.5% 30 ML VIAL As Ordered ONE (13:27)
[2020-04-28] MEDS ORDERED: PHENYLephrine HCL 500 MCG/5 ML (100MCG/ML) SYRINGE (J2370) As Ordered ONE ×2 (14:05→14:39)
[2020-04-28] MEDS ORDERED: ONDANSETRON 4MG/2ML VIAL As Ordered ONE (14:21)
[2020-04-28] MEDS ORDERED: KETOROLAC 60MG 2ML VIAL As Ordered ONE (14:21)
[2020-04-28] MEDS ORDERED: SUGAMMADEX SODIUM 500 MG/5 ML VIAL (BRIDION) As Ordered ONE (14:38)
[2020-04-28] MEDS ORDERED: LACTIC ACID 12% LOTION 225 GM BTL TOP PRN (15:00)
[2020-04-28] MEDS ORDERED: KETOROLAC 30 MG/ML 1ML VIAL IV PRN (15:00)
[2020-04-28] MEDS ORDERED: BACLOFEN 10 MG TAB PO PRN (15:00)
[2020-04-28] MEDS ORDERED: FLUTICASONE PROP 0.05% NASAL SPRAY 16 GM (FLONASE) NARES PRN (15:00)
[2020-04-28] MEDS ORDERED: ONDANSETRON 4MG/2ML VIAL IV PRN ×2 (15:00→15:30)
[2020-04-28] MEDS ORDERED: NORCO, ANEXSIA 5/325MG TABLET (HYDROcodone/ACETAMINOPHEN) PO PRN ×2 (15:00→16:15)
[2020-04-28] MEDS ORDERED: LR 1,000 ML IV SCH (15:30)
[2020-04-28] MEDS ORDERED: METOCLOPRAMIDE INJ 10MG/2ML VIAL (J2765 PER 1) IV PRN (15:30)
[2020-04-28] MEDS ORDERED: HYDROMORPHONE HCL 0.5 MG/ 0.5 ML SYRINGE (J1170 PER 1) IV PRN (15:30)
[2020-04-28] MEDS ORDERED: oxyCODONE 5MG TAB PO PRN (15:30)
[2020-04-28] MEDS ORDERED: fentaNYL 100 MCG/2 ML INJECTION (J3010) IV PRN (15:30)
[2020-04-28] MEDS: SENOKOT S TAB PO SCH (20:06)
[2020-04-28] MEDS: DOCUSATE SODIUM 100 MG CAP PO SCH (20:07)
[2020-04-28] MEDS ORDERED: VITAMIN D 1,000 INTERNATIONAL UNITS TABLET PO SCH (21:00)
[2020-04-28] MEDS ORDERED: TAMSULOSIN 0.4 MG CAP PO SCH (21:00)
[2020-04-29 02:00] VITALS: BP 143/86
[2020-04-29 06:00] VITALS: BP 144/85
[2020-04-29] MEDS: SENOKOT S TAB PO SCH (08:27)
[2020-04-29] MEDS: DOCUSATE SODIUM 100 MG CAP PO SCH (08:27)
[2020-04-29 08:28] VITALS: BP 145/90
[2020-04-29] MEDS: ENOXAPARIN 40MG/0.4ML SYRINGE (J1650 PER 10MG) SC SCH ×2 (08:28→08:31)
[2020-04-29] MEDS ORDERED: OMEPRAZOLE 20 MG CAP PO SCH (09:00)
[2020-04-29] MEDS ORDERED: LOSARTAN 25 MG TAB PO SCH (09:00)
[2020-04-29] MEDS ORDERED: OYSTER SHELL CALCIUM 500 MG TAB PO SCH (09:00)
[2020-04-29] MEDS ORDERED: ASCORBIC ACID 500 MG TAB PO SCH (09:00)
[2020-04-29 10:00] VITALS: BP 153/91
[2020-04-29] MEDS ORDERED: metFORMIN XR 500MG TAB *GLUCOPHAGE XR PO SCH (21:00)
--- NOTE | 2020-05-01 08:35 | RO ---
DATE OF OPERATION: 04/28/2020 PREOPERATIVE DIAGNOSIS: Incarcerated umbilical hernia POSTOPERATIVE DIAGNOSIS: Incarcerated umbilical hernia PROCEDURE: Robotic repair of incarcerated umbilical hernia. SURGEON: Jeff Avitia MD SKIDDER OPERATOR: None. ANESTHESIA: General. ESTIMATED BLOOD LOSS: 5 ml COMPLICATIONS: None. INDICATION FOR PROCEDURE: The patient is a 75-year-old male who was in the hospital with a small-bowel obstruction secondary to an incarcerated umbilical hernia. He subsequently ended up with some aspiration pneumonia from that. He is now out of the hospital doing well and plan is to repair this robotically. Risks and benefits of procedure were not limited to, but included bleeding, infection, hernia recurrence, hernia formation, damage to surrounding structures and need for further surgery was discussed in detail with the patient. Inform consent was obtained and procedure was planned. OPERATIVE PROCEDURE: The patient as brought back to the operating room 7 after successful sedation, the abdomen was thoroughly prepped and draped. Next, time- out was done to confirm proper patient and proper procedure. Following that, an 8 mm incision in left lower quadrant. Veress needle inserted and the abdomen was insufflated to 15 mmHg. The Veress needle was then removed and 8 mm Optiview port was used to gain access to the abdomen. Once the abdomen was entered, two more ports were placed, one subxiphoid, one in the right upper quadrant. The robot was then docked to the ports, next from console, a horizontal incision was made into the preperitoneal space superior to the umbilicus and the midline. Preperitoneal space was dissected free inferiorly surrounding the umbilical hernia. The defect and the hernial sac were then carefully dissected free. Once everything was completely dissected and reduced, A STRATFIX suture was used to re-approximate the fascia. Once that was completed, the ProGrip mesh 4 x 5 cm was cut into an oval and placed into the preperitoneal space over top of the sutured defect. The peritoneum was then closed over top of this using a running 2-0 V-Loc. Once this was all completed, the abdomen was deflated. Skin incisions were closed with 4-0 Vicryl subcuticular sutures. The abdomen was clean and dry. Steri-Strips, 4 x 4 and tape were applied. MTDD
--- NOTE | 2020-05-01 14:17 | DSES ---
DATE OF ADMISSION: 04/28/2020 DATE OF DISCHARGE: 04/29/2020 ADMISSION DIAGNOSIS: Incarcerated umbilical hernia. DISCHARGE DIAGNOSIS: Incarcerated umbilical hernia. HOSPITAL COURSE: The patient is a 75-year-old male with a history of multiple sclerosis (MS). He was recently hospitalized for aspiration pneumonia secondary to a small bowel obstruction that was incarcerated in his umbilical hernia. He was discharged home from that. He has been undergoing PT and OT secondary to not only his hospitalization but also due to his MS. He saw me in the office and he is feeling stronger. He had his right hernia fixed after obtaining clearance from his medical doctor. Surgery was scheduled for the . He came in on the for the elective procedure. The procedure was uneventful. He had a small defect that was closed, had omentum within it. No bowels were involved. He could have had the surgery and gone home. However, his daughter wanted him to stay overnight just for evaluation. Postoperatively he continued to do well, tolerating a diet. He was up moving around. Dr. Delgado was covering for me on the weekend, saw him on Friday morning and discharged him home. There were no complications with his stay. He was placed on Lovenox for DVT prophylaxis during his stay as well as antiembolic stockings and he also had an incentive spirometer. The patient was discharged home on the morning of the . He already had a pain prescription from me from prior to surgery. He was allowed to shower. No baths for five days. No lifting more than 20 pounds. He will follow up with me in the office in two weeks. AMARILIS
== END 2020-04-29 13:30 | disposition home or self-care (01) ==
LOC: M SDC 11:06 → M MSPAV 16:14 → M SDC 04-29 13:30
PROVIDERS: ATTEND Surgery
DX: K42.0 Umbilical hernia with obstruction, without gangrene (principal); I10 Essential (primary) hypertension; M10.9 Gout, unspecified; E11.9 Type 2 diabetes mellitus without complications; G35 Multiple sclerosis; F32.9 Major depressive disorder, single episode, unspecified; Z86.718 Personal history of other venous thrombosis and embolism; G47.33 Obstructive sleep apnea (adult) (pediatric); K21.9 Gastro-esophageal reflux disease without esophagitis; Z79.01 Long term (current) use of anticoagulants; Z79.84 Long term (current) use of oral hypoglycemic drugs; Z79.899 Other long term (current) drug therapy; Z88.8 Allergy status to other drugs, medicaments and biological substances; Z88.5 Allergy status to narcotic agent

== ENCOUNTER 2020-05-01 02:24 | Inpatient (IN) | payer MEDICARE ==
[~2020-05-01] VITALS: Ht 175.3 cm; Wt 86.6 kg
[~2020-05-01 02:24] MED LIST changes: -LR 1,000 ML IV ONE; -ceFAZolin SOD 2 GM in IV 1 EA IV ONE
[2020-05-01] MEDS ORDERED: ISOVUE-370 76% 100ML VIAL As Ordered ONE (03:19)
[2020-05-01] MEDS ORDERED: PIPERACILLIN/TAZOBACTAM SOD 3.375 GM in D5W MINI-BAG PLUS 50 ML IV ONE (03:30)
[2020-05-01] MEDS ORDERED: VANCOMYCIN HCL 1,000 MG, VIAL MATE ADAPTER 1 EACH in D5W 250 ML IV SCH (03:30)
[2020-05-01 03:31] LABS: BASO # 0.1 10^3/uL (0.0-0.2); BASO % 0.3 % (0.0-1.0); EOS % 0.2 % (0.0-3.0); HEMATOCRIT 40.4 % (42.0-52.0); HEMOGLOBIN 13.2 g/dl (13.5-17.5); LYMPH # 0.9 10^3/uL (1.5-5.0); LYMPH % 4.6 % (24.0-44.0); MEAN CORPUSCULAR HEMOGLOBIN 29.9 pg (27.0-33.0); MEAN CORPUSCULAR HGB CONC 32.7 g/dl (32.0-36.5); MEAN CORPUSCULAR VOLUME 91.6 fl (80.0-96.0); MONO # 1.4 10^3/uL (0.0-0.8); NEUTROPHILS # 16.9 10^3/uL (1.5-8.5); NEUTROPHILS % 87.1 % (36.0-66.0); PLATELET COUNT, AUTOMATED 372 10^3/uL (150-450); RED BLOOD COUNT 4.41 10^6/uL (4.30-6.10); WHITE BLOOD COUNT 19.4 10^3/uL (4.0-10.0)
[2020-05-01] MEDS ORDERED: VANCOMYCIN HCL 1,750 MG in D5W 250 ML IV ONE (03:45)
--- NOTE | 2020-05-01 03:52 | REPVR ---
PROCEDURE INFORMATION: Exam: XR Chest, 1 View Exam date and time: 05/01/2020 3:21 AM Age: 75 years old Clinical indication: Other: Sepsis/ shock; Additional info: Sepsis/shock TECHNIQUE: Imaging protocol: XR of the chest Views: 1 view. COMPARISON: [place] PORTABLE CHEST X-RAY 04/10/2020 7:18 AM FINDINGS: Lungs: Mild nonspecific bilateral perihilar and bibasilar reticulonodular opacities. Pleural space: Unremarkable. No pleural effusion. No pneumothorax. Heart/Mediastinum: Mild cardiomegaly. Bones/joints: Multilevel degenerative disease of thoracic spine. IMPRESSION: Mild nonspecific bilateral perihilar and bibasilar reticulonodular opacities. Electronically signed by: Tarun Barahona On 05/01/2020 03:52:14 AM
[2020-05-01] MEDS ORDERED: VANCOMYCIN HCL 1,000 MG, VIAL MATE ADAPTER 1 EACH in D5W 250 ML IV ONE (04:00)
[2020-05-01] MEDS ORDERED: VANCOMYCIN HCL 750 MG, VIAL MATE ADAPTER 1 EACH in D5W 250 ML IV ONE (04:00)
[2020-05-01] MEDS ORDERED: MIRA3350 PO (04:19)
[2020-05-01] MEDS ORDERED: ASPI81TA26 PO (04:19)
[2020-05-01 04:29] LABS: ALBUMIN 3.3 GM/DL (3.2-5.2); ALT/SGPT 59 U/L (12-78); BILIRUBIN,DIRECT 0.4 MG/DL (0.0-0.2); BILIRUBIN,TOTAL 0.8 MG/DL (0.2-1.0); BLOOD UREA NITROGEN 25 MG/DL (7-18); CALCIUM LEVEL 8.6 MG/DL (8.8-10.2); CARBON DIOXIDE LEVEL 27 MEQ/L (21-32); CHLORIDE LEVEL 104 MEQ/L (98-107); CREATININE FOR GFR 1.23 MG/DL (0.70-1.30); GLOMERULAR FILTRATION RATE > 60.0 (>42); GLUCOSE, FASTING 152 MG/DL (70-100); POTASSIUM SERUM 4.5 MEQ/L (3.5-5.1); SODIUM LEVEL 139 MEQ/L (136-145); TOTAL PROTEIN 8.6 GM/DL (6.4-8.2)
--- NOTE | 2020-05-01 05:38 | REPVR ---
PROCEDURE INFORMATION: Exam: CT Abdomen And Pelvis With Contrast Exam date and time: 05/01/2020 4:57 AM Age: 75 years old Clinical indication: Abdominal pain; Additional info: Post op fever after hernia repair, sepsis, ? abscess/free [place] TECHNIQUE: Imaging protocol: Computed tomography of the abdomen and pelvis with intravenous contrast. Radiation optimization: All CT scans at this facility use at least one of these dose optimization techniques: automated exposure control; mA and/or kV adjustment per patient size (includes targeted exams where dose is matched to clinical indication); or iterative reconstruction. Contrast material: ISO 370; Contrast volume: 100 ml; Contrast route: INTRAVENOUS (IV); COMPARISON: CT ABD/PEL W/IV CONTRAST ONLY 04/08/2020 8:17 AM FINDINGS: Lungs: Bilateral airspace consolidations involving lower lobes larger on the right. Favor pneumonia over atelectasis. Centrilobular emphysema. Heart: Calcified mitral valve leaflets. Liver: Hepatomegaly and liver contour nodularity suggestive cirrhosis. Gallbladder and bile ducts: Normal. No calcified stones. No ductal dilation. Pancreas: Normal. No ductal dilation. Spleen: Normal. No splenomegaly. Adrenals: 0.8 x 1.3 cm indeterminate right adrenal nodule. Kidneys and ureters: Bilateral renal cortical atrophy and. Perinephric fat stranding. Stomach and bowel: Redundant sigmoid colon. Diverticulosis of colon. No evidence of acute diverticulitis. Appendix: No evidence of appendicitis. Intraperitoneal space: Unremarkable. No free air. No significant fluid collection. Vasculature: Atherosclerotic disease of coronary arteries. Atherosclerotic disease of abdominal aorta. Lymph nodes: Unremarkable. No enlarged lymph nodes. Urinary bladder: Distended urinary bladder demonstrates wall thickening perivesical fat stranding. Suspect bladder outlet obstruction. Reproductive: Enlarged prostate. Bones/joints: Multilevel degenerative disease and facet hypertrophy of the lumbar spine. Soft tissues: Fat containing bilateral inguinal hernias. Skin induration and subcutaneous fat stranding at the umbilicus with small amount of subcutaneous gas. Suggestion of a small decubitus ulcer in the right buttock. IMPRESSION: Skin induration and subcutaneous fat stranding at the umbilicus with small amount of subcutaneous gas. No evidence of a drainable abscess. Bilateral airspace consolidations involving lower lobes larger on the right. Favor pneumonia over atelectasis. Findings suggestive of bladder outlet obstruction. Electronically signed by: Tarun Barahona On 05/01/2020 05:38:27 AM
[2020-05-01] MEDS ORDERED: NS 2,440 ML in IV 1 EA IV ONE (06:30)
[2020-05-01] MEDS ORDERED: IPRATROPIUM 0.5MG/ALBUTEROL 2.5MG INH SOL UD 3ML (DUONEB) NEB PRN (07:45)
[2020-05-01] MEDS ORDERED: LACTIC ACID 12% LOTION 225 GM BTL TOP PRN (07:45)
[2020-05-01] MEDS ORDERED: MIRALAX *UNIT DOSE* 17GM PACKET PO PRN (07:45)
[2020-05-01] MEDS ORDERED: BACLOFEN 5MG PER 1/2 TABLET PO PRN (07:45)
[2020-05-01] MEDS ORDERED: RIVAROXABAN 15 MG TAB (XARELTO) PO SCH (08:00)
[2020-05-01] MEDS: NS 1,000 ML IV SCH ×2 (08:13→19:42)
[2020-05-01] MEDS: IPRATROPIUM 0.5MG/ALBUTEROL 2.5MG INH SOL UD 3ML (DUONEB) NEB SCH ×3 (08:21→19:46)
[2020-05-01] MEDS ORDERED: GLUCAGON INJ 1MG VIAL SC PRN (09:15)
[2020-05-01] MEDS ORDERED: GLUCOSE 4GM CHEW TABLET PO PRN (09:15)
[2020-05-01] MEDS ORDERED: DEXTROSE 50% 50 ML SYRINGE IV PRN (09:15)
[2020-05-01 10:00] VITALS: BP 127/70
[2020-05-01] MEDS: DOCUSATE SODIUM 100 MG CAP PO SCH ×2 (10:35→20:38)
[2020-05-01] MEDS: OMEPRAZOLE 20 MG CAP PO SCH (10:36)
[2020-05-01] MEDS: ASCORBIC ACID 500 MG TAB PO SCH (10:36)
[2020-05-01] MEDS: LACTOBACILLUS ACIDOPHILUS CAP (BACID) PO SCH ×3 (10:37→20:38)
[2020-05-01] MEDS: LOSARTAN 25 MG TAB PO SCH (10:40)
[2020-05-01] MEDS ORDERED: SLF 3 ML SYR IV PRN (11:00)
[2020-05-01 12:00] VITALS: BP 137/77
[2020-05-01] MEDS ORDERED: PILL CUTTER 1 EACH XX PRN (12:00)
[2020-05-01] MEDS: HumaLOG INSULIN (NovoLOG) PER UNIT SC SCH ×3 (12:05→20:44)
--- NOTE | 2020-05-01 12:12 | HPE ---
DATE OF ADMISSION: 05/01/2020 CHIEF COMPLAINT: Generalized weakness, suspected pneumonia. HISTORY OF PRESENT ILLNESS: Manoj Smith is a 75-year-old patient that I have followed for about 30 years who has a recent medical history of umbilical hernia repair done on 04/28/2020, uncomplicated. He seemed to be recovering well at home. He became quite weak today and had trouble getting in and out of bed needing assistance last evening from his daughter and her , and then this morning his legs were too weak to stand. He came to the emergency room where CT scan of the chest suggested infiltrate versus atelectasis. He has leukocytosis, so he is admitted for pneumonia. He has a recent history of hospitalization for suspected pneumonia earlier in April. He has chronic infiltrates on his chest x-ray, so it is hard to sort out acute from chronic with him. PAST MEDICAL HISTORY: * Severe multiple sclerosis (MS) for which he has been disabled for over 30 years * Type 2 diabetes under excellent control. * Fatty liver confirmed by ultrasound. * Hypertensive heart disease. * Hyperlipidemia with intolerance to statins. * Obstructive sleep apnea. * Vitamin B deficiency. 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 * Status post tPA. * He was on warfarin until the [facility], who manages him through the anticoagulation clinic, placed him on Xarelto 2.5 mg b.i.d. * Cellulitis of the right hand secondary to methicillin-resistant Staphylococcus aureus (MRSA) 10/2009. * Meningioma followed by the [facility] and reports he is asymptomatic. * Neurogenic bladder from multiple sclerosis (MS). * Chronic infiltrates on CT scans of the chest going back to 06/2008. * Hemochromatosis carrier confirmed on 03/2005. * Cystoscopy done 04/2019, for erythematous patches on the posterior wall of the bladder. Cytology showed atypical cells. * Urinary infections, most recently Escherichia coli urinary tract infection (UTI) 04/2019. * Abdominal aortic aneurysm that is small seen on CT scan of the abdomen and pelvis 04/1019, that was 3.7 cm. * Spontaneous hematoma of the left thigh 05/2019, he was switched to Xarelto 07/2019. * Gastritis on an esophagogastroduodenoscopy (EGD) from 05/2019. * Liver biopsy done 05/2019, that did not show any malignancy. He has a persisting mass on his liver that has been negative to biopsy. 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 * Transurethral resection of the prostate (TURP) 03/2009. * Colonoscopy 03/2004, as well as 2007, and most recently 05/2019. * Liver biopsy 05/2019. * Esophagogastroduodenoscopy (EGD) 05/2019. * Left inguinal hernia repair 05/2019. * Umbilical hernia repair 04/2020. FAMILY HISTORY: Father had hypertension. Mother had diabetes. SOCIAL HISTORY: Quit smoking many years ago. No alcohol use. He is disabled from his MS. He is . His is very attentive and also has very attentive family members. ALLERGIES: - ATORVASTATIN CAUSED MYALGIAS. - COPAXONE MADE HIS MS SYMPTOMS WORSE. - PROVIGIL MADE HIS MS SYMPTOMS WORSE. - PRAVASTATIN CAUSED GENERALIZED WEAKNESS. - AMANTADINE CAUSED GENERALIZED WEAKNESS. - GABAPENTIN CAUSED HIM TO PASS OUT. - AMLODIPINE CAUSED SWELLING OF HIS LEGS. REVIEW OF SYSTEMS: He denies any fevers or chills. He actually denies any cough or shortness of breath. No orthopnea or paroxysmal nocturnal dyspnea (PND). He just says he feels generalized weak. He has no urinary symptoms, but his MS might preclude that. MEDICATIONS: See outpatient medication list. PHYSICAL EXAMINATION: VITAL SIGNS: Per flow sheet. GENERAL: He is alert, oriented, conversant, and in no distress. He actually looks about the same as his baseline. No dyspnea. HEENT: Pupils equal and reactive to light. Pharynx benign. NECK: No masses. LUNGS: Chronic rales at both bases. Lungs actually sound clearer than on the office appointment on 04/21/2020. HEART: Regular rate and rhythm. No murmur. ABDOMEN: Soft and nontender with no masses. Umbilical hernia repair site looks clean with no redness and nontender. EXTREMITIES: No clubbing or cyanosis. Trace peripheral edema. Normal strength in the arms and legs. LABORATORY DATA: White count 19.4, hemoglobin 13.2, platelets 372,000. Sodium 139, potassium 4.5, BUN 25, creatinine 1.2, glucose 152. Urinalysis showed 79 white cells, as well as 3+ bacteria. Cultures are pending. IMAGING: CT of the abdomen and pelvis shows cirrhosis. He had bilateral airspace consolidation, atelectasis versus pneumonia, bladder outlet obstruction suggested, and urinary catheter has been placed. IMPRESSION AND PLAN: 1. Generalized weakness that could from a urinary tract infection or a pneumonia. I favor a urinary tract infection (UTI). His lungs actually sound better than they did in the office a few weeks ago. There is concern about hospital acquired, so we will start ceftaroline 400 mg intravenous (IV) q. 12 hours. He has already received vancomycin and Zosyn in the emergency room. 2. History of arterial thrombosis. We will continue his current anticoagulant regimen, [facility]. 3. Diabetes. Sliding scale insulin coverage. Hold his metformin for now. 4. Multiple sclerosis (MS). I think he would probably benefit from rehab before discharge. 5. Neurogenic bladder. Urban catheter has been placed. Urine culture is pending. 6. Recent umbilical hernia repair. Surgical site looks entirely clear and I do not think this is a source of any of his problem. AMARILIS
[2020-05-01] MEDS: RIVAROXABAN 10 MG TAB (XARELTO) PO SCH ×2 (12:41→17:50)
[2020-05-01] MEDS: OYSTER SHELL CALCIUM 500 MG TAB PO SCH (13:12)
[2020-05-01] MEDS: CEFTAROLINE FOSAMIL 400 MG in D5W MINI-BAG PLUS 50 ML IV SCH ×2 (13:13→20:38)
[2020-05-01] MEDS: SLF 3 ML SYR IV SCH ×2 (13:14→21:00)
[2020-05-01 16:00] VITALS: BP 133/75
[2020-05-01] MEDS: LACTIC ACID 12% LOTION 225 GM BTL TOP SCH (17:39)
[2020-05-01] MEDS: FLUTICASONE PROP 0.05% NASAL SPRAY 16 GM (FLONASE) NARES PRN (17:40)
[2020-05-01] MEDS: BACLOFEN 5MG PER 1/2 TABLET PO SCH ×2 (17:40→20:38)
[2020-05-01 20:00] VITALS: BP 109/58
[2020-05-01] MEDS: MIRALAX *UNIT DOSE* 17GM PACKET PO SCH (20:37)
[2020-05-01] MEDS: VITAMIN D 1,000 INTERNATIONAL UNITS TABLET PO SCH (20:38)
[2020-05-01] MEDS: ASPIRIN 81 MG ENTERIC TAB PO SCH (20:38)
[2020-05-01] MEDS: TAMSULOSIN 0.4 MG CAP PO SCH (20:38)
[2020-05-02] VITALS: BP 110/55
[2020-05-02] MEDS: IPRATROPIUM 0.5MG/ALBUTEROL 2.5MG INH SOL UD 3ML (DUONEB) NEB SCH ×4 (01:30→19:38)
[2020-05-02 04:00] VITALS: BP 108/68
[2020-05-02] MEDS: SLF 3 ML SYR IV SCH ×3 (05:09→22:29)
[2020-05-02 05:15] LABS: BASO # 0.1 10^3/uL (0.0-0.2); BASO % 0.4 % (0.0-1.0); EOS # 0.2 10^3/uL (0.0-0.5); EOS % 1.5 % (0.0-3.0); HEMATOCRIT 35.5 % (42.0-52.0); HEMOGLOBIN 11.6 g/dl (13.5-17.5); LYMPH # 1.4 10^3/uL (1.5-5.0); LYMPH % 10.1 % (24.0-44.0); MEAN CORPUSCULAR HEMOGLOBIN 30.4 pg (27.0-33.0); MEAN CORPUSCULAR HGB CONC 32.7 g/dl (32.0-36.5); MEAN CORPUSCULAR VOLUME 92.9 fl (80.0-96.0); NEUTROPHILS # 11.3 10^3/uL (1.5-8.5); NEUTROPHILS % 80.6 % (36.0-66.0); PLATELET COUNT, AUTOMATED 281 10^3/uL (150-450); RED BLOOD COUNT 3.82 10^6/uL (4.30-6.10); WHITE BLOOD COUNT 14.1 10^3/uL (4.0-10.0)
[2020-05-02 05:30] LABS: BLOOD UREA NITROGEN 19 MG/DL (7-18); CARBON DIOXIDE LEVEL 26 MEQ/L (21-32); CHLORIDE LEVEL 108 MEQ/L (98-107); GLOMERULAR FILTRATION RATE > 60.0 (>42); GLUCOSE, FASTING 152 MG/DL (70-100); SODIUM LEVEL 140 MEQ/L (136-145)
[2020-05-02] MEDS: NS 1,000 ML IV SCH ×2 (06:42→17:38)
[2020-05-02 08:00] VITALS: BP 137/79
--- NOTE | 2020-05-02 08:12 | ECGEPIP ---
[facility] - ED Test Date: 2020-05-01 Pat Name: MIGUEL MAS Department: Room: - Gender: Male Director Of Front Office: : 1945 Requested By: ERICA Box Order Number: [id number] Reading MD: Simeon Krishnan Measurements Intervals [place] Rate: 109 P: 0 OH: 116 QRS: -21 QRSD: 114 T: 44 QT: 323 QTc: 437 Interpretive Statements SINUS TACHYCARDIA BORDERLINE LEFT AXIS DEVIATION INCOMPLETE RIGHT BUNDLE BRANCH BLOCK SIMILAR TO 04/08/20 Electronically Signed on 05-02-2020 8:12:08 EDT by Simeon Krishnan
[2020-05-02] MEDS: HumaLOG INSULIN (NovoLOG) PER UNIT SC SCH ×4 (08:20→20:55)
[2020-05-02] MEDS: ASCORBIC ACID 500 MG TAB PO SCH (08:21)
[2020-05-02] MEDS: OMEPRAZOLE 20 MG CAP PO SCH (08:21)
[2020-05-02] MEDS: DOCUSATE SODIUM 100 MG CAP PO SCH ×2 (08:21→20:56)
[2020-05-02] MEDS: LACTOBACILLUS ACIDOPHILUS CAP (BACID) PO SCH ×3 (08:21→20:55)
[2020-05-02] MEDS: OYSTER SHELL CALCIUM 500 MG TAB PO SCH (08:21)
[2020-05-02] MEDS: BACLOFEN 5MG PER 1/2 TABLET PO SCH ×3 (08:21→20:55)
[2020-05-02] MEDS: RIVAROXABAN 10 MG TAB (XARELTO) PO SCH ×2 (08:21→17:34)
[2020-05-02] MEDS: MIRALAX *UNIT DOSE* 17GM PACKET PO SCH ×2 (08:27→20:56)
[2020-05-02] MEDS: LOSARTAN 25 MG TAB PO SCH (08:27)
[2020-05-02] MEDS: LACTIC ACID 12% LOTION 225 GM BTL TOP SCH (08:28)
[2020-05-02] MEDS: CEFTAROLINE FOSAMIL 400 MG in D5W MINI-BAG PLUS 50 ML IV SCH ×2 (08:28→20:55)
[2020-05-02 12:00] VITALS: BP 119/65
[2020-05-02 16:00] VITALS: BP 133/71
--- NOTE | 2020-05-02 18:31 | IPNPDOC ---
Date Seen The patient was seen on 05/02/20. Progress Note SUBJECTIVE: WBC improving with Teflaro, afebrile. Ucx and Bcx pending. Patient states to feel improved, f/u PT/OT results. Denies SOB, chest pain, n/v/d. OBJECTIVE: PHYSICAL EXAMINATION: VITAL SIGNS: Please see below GENERAL: In NAD, resting in bedside chair. HEENT: PERRLA, EOM intact, oral mucosa moist NECK: No masses, no JVD LUNGS: CTAB, no wheezing, rhonchi or rales HEART: S1S2 +, no M/R/G ABDOMEN: Soft and nontender with no masses. Umbilical hernia repair site- no erythema, swelling or pain on palpation EXTREMITIES: No clubbing or cyanosis. Trace peripheral edema. Normal strength inthe arms and legs. PSYCH: Mood and affect appropriate LABORATORY DATA: Please see below MICROBIOLOGY: IMAGING: CT of the abdomen and pelvis shows cirrhosis. He had bilateral airspace con solidation, atelectasis versus pneumonia, bladder outlet obstruction suggested, and urinary catheter has been placed. Mild nonspecific bilateral perihilar and bibasilar reticulonodular opacities. IMPRESSION AND PLAN: Leukocytosis 2/2 to UTI vs. HCAP -WBC improved to 14, afebrile -Saturating well on RA -S/p vancomycin, zosyn in ER on 05/01/20, currently on Teflaro only and WBC improving -Awaiting UCx and BCx results while on Teflaro. Once sensitivities arrive, discuss with Dr. Kilpatrick what to deescalate to. -F/u sputum cx Weakness likely 2/2 to acute infection above -PT/OT History of arterial thrombosis. -C/w current anticoagulant regimen Diabetes -BS controlled -Sliding scale insulin coverage. -Hold his metformin for now. Multiple sclerosis (MS). -Generalized weakness not 2/2 to MS flare -PT/OT Neurogenic bladder. - Urban catheter has been placed. - Urine culture is pending. Recent umbilical hernia repair. -Surgical site looks clean DVT px -xarelto DISPOSITION: Updated patient's daughter this evening on results, plan. PT/OT. Plan is rehab vs. discharge home with services if needed. VS, I&O, 24H, Fishbone Vital Signs/I&O Vital Signs Date Time Temp Pulse Resp B/P (MAP) Pulse Ox O2 Delivery O2 Flow Rate FiO2 10/20/20 16:00 97.4 87 17 133/71 (91) 98 Room Air 05/01/20 06:30 1.0 I&O- Last 24 Hours up to 6 AM 05/02/20 06:00 Intake Total 1565 ml Output Total 700 ml Balance 865 ml Laboratory Data 24H LABS Laboratory Tests 2 05/01/20 20:31: Bedside Glucose (Misc Panel) 247H 05/02/20 04:55: Immature Granulocyte % (Auto) 0.4, Neutrophils (%) (Auto) 80.6H, Lymphocytes (%) (Auto) 10.1L, Monocytes (%) (Auto) 7.0H, Eosinophils (%) (Auto) 1.5, Basophils (%) (Auto) 0.4, Neutrophils # (Auto) 11.3H, Lymphocytes # (Auto) 1.4L, Monocytes # (Auto) 1.0H, Eosinophils # (Auto) 0.2, Basophils # (Auto) 0.1, Nucleated Red Blood Cells % (auto) 0.0, Anion Gap 6L, Glomerular Filtration Rate > 60.0, Calcium Level 8.0L 05/02/20 11:38: Bedside Glucose (Misc Panel) 330H 05/02/20 17:28: Bedside Glucose (Misc Panel) 274H CBC/BMP Laboratory Tests 05/02/20 04:55 Microbiology Microbiology 05/01/20 Blood Culture - Preliminary, Resulted No growth after 24 hours . All specim... 05/01/20 Respiratory Virus Panel (PCR) (CHERELLE) - Final, Complete 05/01/20 Urine Culture, Received Pending 05/01/20 Blood Culture - Preliminary, Resulted No growth after 24 hours . All specim... Current Medications Current Medications Medications (Trade) Dose Ordered Sig/Avelino Route PRN Reason Start Time Stop Time Status Last Admin Dose Admin Albuterol/ Ipratropium (Duoneb (Ipr 0.5mg/Alb 2.5mg)) 3 ml Q2HP PRN NEB SOB/WHEEZING 05/01/20 07:45 Albuterol/ Ipratropium (Duoneb (Ipr 0.5mg/Alb 2.5mg)) 3 ml RQ6H NEB 05/01/20 08:00 05/02/20 14:40 Ascorbic Acid (Vitamin C) 500 mg DAILY PO 05/01/20 09:00 05/02/20 08:21 Aspirin (Ecotrin) 81 mg QHS PO 05/01/20 21:00 05/01/20 20:38 Baclofen (Lioresal) 5 mg TID PO 05/01/20 16:00 05/02/20 16:42 Baclofen (Lioresal) 5 mg TID PRN PO MUSCLE SPASMS 05/01/20 07:45 05/01/20 16:08 DC Calcium Carbonate (Oscal) 500 mg DAILY PO 05/01/20 09:00 05/02/20 08:21 Ceftaroline Fosamil 400 mg/ Dextrose 50 ml @ 50 mls/hr Q12H IV 05/01/20 09:15 05/02/20 08:28 Dextrose (Dextrose 50%) 25 ml ASDIRECTED PRN IV SEE LABEL COMMENTS 05/01/20 09:15 Docusate Sodium (Colace) 200 mg BID PO 05/01/20 09:00 05/02/20 08:21 Fluticasone Propionate (Flonase 0.05% Nasal [place]) 2 spray DAILY PRN NARES CONGESTION 05/01/20 07:45 05/01/20 17:40 Glucagon (Glucagon) 1 mg ASDIRECTED PRN SC SEE LABEL COMMENTS 05/01/20 09:15 Glucose (Glucose) 16 GM ASDIRECTED PRN PO SEE LABEL COMMENTS 05/01/20 09:15 Home Med (Med Rec Complete!) ASDIRECTED XX 05/01/20 04:30 05/01/20 04:23 DC Insulin Human Lispro (HumaLOG INSULIN) SEE PROTOCOL TABLE AC SC 05/01/20 12:00 05/02/20 17:33 Insulin Human Lispro (HumaLOG INSULIN) SEE PROTOCOL TABLE QHS SC 05/01/20 21:00 Lactic Acid (Lac-Hydrin 12% Lotion) APPLY TO AREAS OF DRY SKIN DAILY TOP 05/01/20 09:00 05/02/20 08:28 Lactic Acid (Lac-Hydrin 12% Lotion) APPLY TO AREAS OF DRY SKIN DAILY PRN TOP DRY SKIN 05/01/20 07:45 05/01/20 16:08 DC Lactobacillus Acidophilus (Bacid) 2 ea TID PO 05/01/20 09:00 05/02/20 16:42 Losartan Potassium (Cozaar) 25 mg DAILY PO 05/01/20 09:00 05/02/20 08:27 Omeprazole (PriLOSEC) 20 mg DAILY PO 05/01/20 09:00 05/02/20 08:21 Polyethylene Glycol (Miralax) 1 pkt BID PO 05/01/20 21:00 05/02/20 08:27 Polyethylene Glycol (Miralax) 1 pkt BID PRN PO CONSTIPATION 05/01/20 07:45 05/01/20 16:08 DC Rivaroxaban (Xarelto) 2.5 mg BID@08,18 PO 05/01/20 08:00 05/01/20 11:03 DC Rivaroxaban (Xarelto) 2.5 mg BID@,18 PO 05/01/20 08:00 05/02/20 17:34 Sodium Chloride 1,000 ml @ 100 mls/hr Q10H IV 05/01/20 06:30 05/02/20 17:38 Sodium Chloride (Saline Lock Flush) 2 ml ASDIRECTED PRN IV SEE LABEL COMMENTS 05/01/20 11:00 Sodium Chloride (Saline Lock Flush) 2 ml SLF IV 05/01/20 14:00 05/02/20 13:40 Tamsulosin HCl (Flomax) 0.4 mg QHS PO 05/01/20 21:00 05/01/20 20:38 Vancomycin HCl 1000 mg/IV Miscellaneous Supplies 1 each/ Dextrose 270 ml @ 270 mls/hr NOW IV 05/01/20 03:30 05/01/20 03:40 DC Vitamin D (Vitamin D) 2,000 units QHS PO 05/01/20 21:00 05/01/20 20:38 Allergies Coded Allergies: gabapentin (Verified Adverse Reaction, Intermediate, elevates MS symptoms, 04/25/20) modafinil (Verified Adverse Reaction, Intermediate, elevate MS symptoms, 04/25/20) Qvtnadp-Pth-Kgi Reductase Inhibitor (Verified Adverse Reaction, Mild, "PASSES OUT", 04/25/20) glatiramer (copolymer 1) (Verified Adverse Reaction, Mild, weakness, 04/25/20) Desiree Zhang MD May 02, 2020 18:31
[2020-05-02 20:00] VITALS: BP 140/76
[2020-05-02] MEDS: VITAMIN D 1,000 INTERNATIONAL UNITS TABLET PO SCH (20:55)
[2020-05-02] MEDS: ASPIRIN 81 MG ENTERIC TAB PO SCH (20:55)
[2020-05-02] MEDS: TAMSULOSIN 0.4 MG CAP PO SCH (20:56)
[2020-05-03] VITALS: BP 117/60
[2020-05-03] MEDS: IPRATROPIUM 0.5MG/ALBUTEROL 2.5MG INH SOL UD 3ML (DUONEB) NEB SCH ×4 (01:39→18:18)
[2020-05-03 04:00] VITALS: BP 101/51
[2020-05-03 05:40] LABS: BASO % 0.5 % (0.0-1.0); EOS # 0.6 10^3/uL (0.0-0.5); HEMATOCRIT 36.1 % (42.0-52.0); HEMOGLOBIN 11.7 g/dl (13.5-17.5); LYMPH # 1.3 10^3/uL (1.5-5.0); LYMPH % 15.8 % (24.0-44.0); MEAN CORPUSCULAR HEMOGLOBIN 30.2 pg (27.0-33.0); MEAN CORPUSCULAR HGB CONC 32.4 g/dl (32.0-36.5); MEAN CORPUSCULAR VOLUME 93.3 fl (80.0-96.0); MONO # 0.6 10^3/uL (0.0-0.8); MONO % 7.3 % (0.0-5.0); NEUTROPHILS # 5.4 10^3/uL (1.5-8.5); NEUTROPHILS % 68.6 % (36.0-66.0); PLATELET COUNT, AUTOMATED 291 10^3/uL (150-450); RED BLOOD COUNT 3.87 10^6/uL (4.30-6.10); WHITE BLOOD COUNT 7.9 10^3/uL (4.0-10.0)
[2020-05-03] MEDS: SLF 3 ML SYR IV SCH ×3 (06:00→21:06)
[2020-05-03 06:07] LABS: BLOOD UREA NITROGEN 15 MG/DL (7-18); CALCIUM LEVEL 8.2 MG/DL (8.8-10.2); CARBON DIOXIDE LEVEL 25 MEQ/L (21-32); CHLORIDE LEVEL 108 MEQ/L (98-107); GLOMERULAR FILTRATION RATE > 60.0 (>42); GLUCOSE, FASTING 162 MG/DL (70-100); POTASSIUM SERUM 4.4 MEQ/L (3.5-5.1); SODIUM LEVEL 140 MEQ/L (136-145)
[2020-05-03 08:00] VITALS: BP 134/65
[2020-05-03] MEDS: MIRALAX *UNIT DOSE* 17GM PACKET PO SCH ×2 (09:04→21:06)
[2020-05-03] MEDS: LACTOBACILLUS ACIDOPHILUS CAP (BACID) PO SCH ×3 (09:05→21:06)
[2020-05-03] MEDS: HumaLOG INSULIN (NovoLOG) PER UNIT SC SCH ×4 (09:05→21:18)
[2020-05-03] MEDS: RIVAROXABAN 10 MG TAB (XARELTO) PO SCH (09:06)
[2020-05-03] MEDS: OMEPRAZOLE 20 MG CAP PO SCH (09:06)
[2020-05-03] MEDS: ASCORBIC ACID 500 MG TAB PO SCH (09:06)
[2020-05-03] MEDS: LOSARTAN 25 MG TAB PO SCH (09:06)
[2020-05-03] MEDS: DOCUSATE SODIUM 100 MG CAP PO SCH ×2 (09:07→21:05)
[2020-05-03] MEDS: OYSTER SHELL CALCIUM 500 MG TAB PO SCH (11:00)
[2020-05-03] MEDS: LevoFLOXacin 500 MG TABLET PO SCH (11:00)
[2020-05-03] MEDS: LACTIC ACID 12% LOTION 225 GM BTL TOP SCH (11:02)
[2020-05-03 12:00] VITALS: BP 110/70
[2020-05-03] MEDS: BACLOFEN 5MG PER 1/2 TABLET PO SCH ×3 (12:39→21:05)
--- NOTE | 2020-05-03 13:59 | IPNPDOC ---
Date Seen The patient was seen on 05/03/20. Progress Note SUBJECTIVE: WBC wnl, afebrile. D/violetta Teflaro. UCx E. cloacae. Hematuria with stable H/H, stopped xarelto and ASA and will monitor closely prior to d/cing to ARU. Denies SOB, chest pain, n/v/d. OBJECTIVE: PHYSICAL EXAMINATION: VITAL SIGNS: Please see below GENERAL: In NAD, resting in bedside chair. HEENT: PERRLA, EOM intact, oral mucosa moist NECK: No masses, no JVD LUNGS: CTAB, no wheezing, rhonchi or rales HEART: S1S2 +, no M/R/G : mijares catheter with 800 cc of dark red urine ABDOMEN: Soft and nontender with no masses. Umbilical hernia repair site- no erythema, swelling or pain on palpation EXTREMITIES: No clubbing or cyanosis. Trace peripheral edema. Normal strength inthe arms and legs. PSYCH: Mood and affect appropriate LABORATORY DATA: Please see below MICROBIOLOGY: IMAGING: CT of the abdomen and pelvis shows cirrhosis. He had bilateral airspace consolidation, atelectasis versus pneumonia, bladder outlet obstruction suggested, and urinary catheter has been placed. IMPRESSION/PLAN: Hematuria likely 2/2 to trauma s/p mijares catheter placement, on xarelto and ASA -Stopped xarelto, ASA today -Monitor bleeding, CBC UTI -WBC wnl, afebrile -UCx: Enterobacter cloacae sensitive to levofloxacin -BCx NG -Started on levofloxacin daily -Patient will need to be d/violetta on prophylactic medication for UTI after completion of current treatment. Dr. Kilpatrick to give recommendation HCAP -WBC wnl, afebrile -Saturating well on RA -F/u sputum culture, BCx NG at 48 hrs -C/w levofloxacin daily for now Urinary retention likely 2/2 to neurogenic bladder 2/2 MS vs. BPH -Discussed with Dr. Fofana (urology) who believes, since patient has been on flomax this hospitalization, it is likely that MS is causing continued retention. -C/w mijares catheter, voiding trial on 05/08/20 wherever he may be. Based on this trial will determine whether or not to continue with mijares catheter. -C/w flomax Weakness likely 2/2 to acute infection above -PT/OT: Would benefit from Rehab services -Goal is ARU History of arterial thrombosis -D/c AC currently due to hematuria -Resume when bleeding resolves Diabetes -BS controlled -Sliding scale insulin coverage. -Hold his metformin for now. Multiple sclerosis (MS). -Generalized weakness not 2/2 to MS flare -PT/OT Recent umbilical hernia repair. -Surgical site looks clean DVT px -Holding Xarelto due to hematuria -SCD, teds DISPOSITION: Updated patient's daughter on results, plan. PT/OT. Plan is rehab when hematuria resolves. VS, I&O, 24H, Fishbone Vital Signs/I&O Vital Signs Date Time Temp Pulse Resp B/P (MAP) Pulse Ox O2 Delivery O2 Flow Rate FiO2 05/03/20 12:00 97.6 98 18 110/70 (83) 97 Room Air 05/01/20 06:30 1.0 I&O- Last 24 Hours up to 6 AM 05/03/20 06:00 Intake Total 1790 ml Output Total 1550 ml Balance 240 ml Laboratory Data 24H LABS Laboratory Tests 2 05/02/20 17:28: Bedside Glucose (Misc Panel) 274H 05/02/20 20:44: Bedside Glucose (Misc Panel) 274H 05/03/20 05:24: Immature Granulocyte % (Auto) 0.8, Neutrophils (%) (Auto) 68.6H, Lymphocytes (%) (Auto) 15.8L, Monocytes (%) (Auto) 7.3H, Eosinophils (%) (Auto) 7.0H, Basophils (%) (Auto) 0.5, Neutrophils # (Auto) 5.4, Lymphocytes # (Auto) 1.3L, Monocytes # (Auto) 0.6, Eosinophils # (Auto) 0.6H, Basophils # (Auto) 0.0, Nucleated Red Blood Cells % (auto) 0.0, Anion Gap 7L, Glomerular Filtration Rate > 60.0, Calcium Level 8.2L 05/03/20 12:08: Bedside Glucose (Misc Panel) 216H CBC/BMP Laboratory Tests 05/03/20 05:24 Microbiology Microbiology 05/03/20 Gram Stain - Final, Resulted 05/03/20 Sputum Culture, Resulted Pending 05/01/20 Blood Culture - Preliminary, Resulted No Growth after 48 hours. All Specime... 05/01/20 Respiratory Virus Panel (PCR) (CHERELLE) - Final, Complete 05/01/20 Urine Culture - Final, Complete Enterobacter Cloacae Complex 05/01/20 Blood Culture - Preliminary, Resulted No Growth after 48 hours. All Specime... Current Medications Current Medications Medications (Trade) Dose Ordered Sig/Avelino Route PRN Reason Start Time Stop Time Status Last Admin Dose Admin Albuterol/ Ipratropium (Duoneb (Ipr 0.5mg/Alb 2.5mg)) 3 ml Q2HP PRN NEB SOB/WHEEZING 05/01/20 07:45 Albuterol/ Ipratropium (Duoneb (Ipr 0.5mg/Alb 2.5mg)) 3 ml RQ6H NEB 05/01/20 08:00 05/03/20 07:23 Ascorbic Acid (Vitamin C) 500 mg DAILY PO 05/01/20 09:00 05/03/20 09:06 Aspirin (Ecotrin) 81 mg QHS PO 05/01/20 21:00 05/03/20 09:48 DC 05/02/20 20:55 Baclofen (Lioresal) 5 mg TID PO 05/01/20 16:00 05/03/20 12:39 Baclofen (Lioresal) 5 mg TID PRN PO MUSCLE SPASMS 05/01/20 07:45 05/01/20 16:08 DC Calcium Carbonate (Oscal) 500 mg DAILY PO 05/01/20 09:00 05/03/20 11:00 Ceftaroline Fosamil 400 mg/ Dextrose 50 ml @ 50 mls/hr Q12H IV 05/01/20 09:15 05/03/20 08:07 DC 05/02/20 20:55 Dextrose (Dextrose 50%) 25 ml ASDIRECTED PRN IV SEE LABEL COMMENTS 05/01/20 09:15 Docusate Sodium (Colace) 200 mg BID PO 05/01/20 09:00 05/03/20 09:07 Fluticasone Propionate (Flonase 0.05% Nasal [place]) 2 spray DAILY PRN NARES CONGESTION 05/01/20 07:45 05/01/20 17:40 Glucagon (Glucagon) 1 mg ASDIRECTED PRN SC SEE LABEL COMMENTS 05/01/20 09:15 Glucose (Glucose) 16 GM ASDIRECTED PRN PO SEE LABEL COMMENTS 05/01/20 09:15 Home Med (Med Rec Complete!) ASDIRECTED XX 05/01/20 04:30 05/01/20 04:23 DC Insulin Human Lispro (HumaLOG INSULIN) SEE PROTOCOL TABLE AC SC 05/01/20 12:00 05/03/20 12:33 Insulin Human Lispro (HumaLOG INSULIN) SEE PROTOCOL TABLE QHS SC 05/01/20 21:00 05/02/20 20:55 Lactic Acid (Lac-Hydrin 12% Lotion) APPLY TO AREAS OF DRY SKIN DAILY TOP 05/01/20 09:00 05/03/20 11:02 Lactic Acid (Lac-Hydrin 12% Lotion) APPLY TO AREAS OF DRY SKIN DAILY PRN TOP DRY SKIN 05/01/20 07:45 05/01/20 16:08 DC Lactobacillus Acidophilus (Bacid) 2 ea TID PO 05/01/20 09:00 05/03/20 09:05 Levofloxacin (Levaquin) 500 mg DAILY@06 PO 05/03/20 06:00 05/03/20 11:00 Losartan Potassium (Cozaar) 25 mg DAILY PO 05/01/20 09:00 05/03/20 09:06 Omeprazole (PriLOSEC) 20 mg DAILY PO 05/01/20 09:00 05/03/20 09:06 Polyethylene Glycol (Miralax) 1 pkt BID PO 05/01/20 21:00 05/03/20 09:04 Polyethylene Glycol (Miralax) 1 pkt BID PRN PO CONSTIPATION 05/01/20 07:45 05/01/20 16:08 DC Rivaroxaban (Xarelto) 2.5 mg BID@08,18 PO 05/01/20 08:00 05/01/20 11:03 DC Rivaroxaban (Xarelto) 2.5 mg BID@08,18 PO 05/01/20 08:00 05/03/20 09:46 DC 05/03/20 09:06 Sodium Chloride 1,000 ml @ 100 mls/hr Q10H IV 05/01/20 06:30 05/02/20 18:41 DC 05/02/20 17:38 Sodium Chloride (Saline Lock Flush) 2 ml ASDIRECTED PRN IV SEE LABEL COMMENTS 05/01/20 11:00 Sodium Chloride (Saline Lock Flush) 2 ml SLF IV 05/01/20 14:00 05/03/20 06:00 Tamsulosin HCl (Flomax) 0.4 mg QHS PO 05/01/20 21:00 05/02/20 20:56 Vancomycin HCl 1000 mg/IV Miscellaneous Supplies 1 each/ Dextrose 270 ml @ 270 mls/hr NOW IV 05/01/20 03:30 05/01/20 03:40 DC Vitamin D (Vitamin D) 2,000 units QHS PO 05/01/20 21:00 05/02/20 20:55 Allergies Coded Allergies: gabapentin (Verified Adverse Reaction, Intermediate, elevates MS symptoms, 04/25/20) modafinil (Verified Adverse Reaction, Intermediate, elevate MS symptoms, 04/25/20) Lrmglao-Zbv-Itn Reductase Inhibitor (Verified Adverse Reaction, Mild, "PASSES OUT", 04/25/20) glatiramer (copolymer 1) (Verified Adverse Reaction, Mild, weakness, 04/25/20) Desiree Zhang MD May 03, 2020 13:59
[2020-05-03 16:00] VITALS: BP 128/67
[2020-05-03 20:00] VITALS: BP 131/67
[2020-05-03] MEDS: VITAMIN D 1,000 INTERNATIONAL UNITS TABLET PO SCH (21:05)
[2020-05-03] MEDS: TAMSULOSIN 0.4 MG CAP PO SCH (21:06)
[2020-05-04] VITALS: BP 131/67
[2020-05-04] MEDS: IPRATROPIUM 0.5MG/ALBUTEROL 2.5MG INH SOL UD 3ML (DUONEB) NEB SCH ×4 (01:39→19:50)
[2020-05-04 04:00] VITALS: BP 127/67
[2020-05-04 05:40] LABS: BASO % 0.6 % (0.0-1.0); EOS # 0.5 10^3/uL (0.0-0.5); HEMATOCRIT 36.1 % (42.0-52.0); HEMOGLOBIN 11.5 g/dl (13.5-17.5); LYMPH # 1.1 10^3/uL (1.5-5.0); LYMPH % 15.6 % (24.0-44.0); MEAN CORPUSCULAR HEMOGLOBIN 29.3 pg (27.0-33.0); MEAN CORPUSCULAR HGB CONC 31.9 g/dl (32.0-36.5); MEAN CORPUSCULAR VOLUME 92.1 fl (80.0-96.0); MONO # 0.5 10^3/uL (0.0-0.8); MONO % 7.7 % (0.0-5.0); NEUTROPHILS # 4.6 10^3/uL (1.5-8.5); NEUTROPHILS % 68.4 % (36.0-66.0); PLATELET COUNT, AUTOMATED 315 10^3/uL (150-450); RED BLOOD COUNT 3.92 10^6/uL (4.30-6.10); WHITE BLOOD COUNT 6.7 10^3/uL (4.0-10.0)
[2020-05-04 05:54] LABS: CALCIUM LEVEL 8.2 MG/DL (8.8-10.2); CREATININE FOR GFR 1.31 MG/DL (0.70-1.30); GLOMERULAR FILTRATION RATE 56.5 (>42); POTASSIUM SERUM 4.5 MEQ/L (3.5-5.1)
[2020-05-04] MEDS: LevoFLOXacin 500 MG TABLET PO SCH (06:20)
[2020-05-04] MEDS: SLF 3 ML SYR IV SCH ×3 (06:21→20:31)
[2020-05-04 08:00] VITALS: BP 144/98
[2020-05-04] MEDS: MIRALAX *UNIT DOSE* 17GM PACKET PO SCH ×2 (09:20→20:30)
[2020-05-04] MEDS: HumaLOG INSULIN (NovoLOG) PER UNIT SC SCH ×4 (09:20→20:31)
[2020-05-04] MEDS: NS 1,000 ML IV SCH (09:22)
[2020-05-04] MEDS: ASCORBIC ACID 500 MG TAB PO SCH (09:24)
[2020-05-04] MEDS: OYSTER SHELL CALCIUM 500 MG TAB PO SCH (09:24)
[2020-05-04] MEDS: OMEPRAZOLE 20 MG CAP PO SCH (09:24)
[2020-05-04] MEDS: LOSARTAN 25 MG TAB PO SCH (09:24)
[2020-05-04] MEDS: DOCUSATE SODIUM 100 MG CAP PO SCH ×2 (09:24→20:33)
[2020-05-04] MEDS: LACTOBACILLUS ACIDOPHILUS CAP (BACID) PO SCH ×3 (09:24→20:32)
[2020-05-04] MEDS: BACLOFEN 5MG PER 1/2 TABLET PO SCH ×3 (09:24→20:32)
[2020-05-04] MEDS: LACTIC ACID 12% LOTION 225 GM BTL TOP SCH (09:53)
[2020-05-04 12:00] VITALS: BP 135/60
--- NOTE | 2020-05-04 15:05 | IPNPDOC ---
Date Seen The patient was seen on 05/04/20. Progress Note SUBJECTIVE: WBC wnl, afebrile. Sputum culture still pending, hematuria improved some with Cr incr to 1.33. Started gentle IVFs. Denies SOB, chest pain, n/v/d. OBJECTIVE: PHYSICAL EXAMINATION: VITAL SIGNS: Please see below GENERAL: In NAD, resting in bedside chair. HEENT: PERRLA, EOM intact, oral mucosa moist NECK: No masses, no JVD LUNGS: CTAB, no wheezing, rhonchi or rales HEART: S1S2 +, no M/R/G : mijares catheter with 400 mL of light pink urine ABDOMEN: Soft and nontender with no masses. Umbilical hernia repair site- no erythema, swelling or pain on palpation EXTREMITIES: No clubbing or cyanosis. Trace peripheral edema. Normal strength in the arms and legs. Braces in place on b/l lower ext PSYCH: Mood and affect appropriate LABORATORY DATA: Please see below MICROBIOLOGY: IMAGING: CT of the abdomen and pelvis shows cirrhosis. He had bilateral airspace consolidation, atelectasis versus pneumonia, bladder outlet obstruction suggested, and urinary catheter has been placed. IMPRESSION/PLAN: Hematuria likely 2/2 to trauma s/p mijares catheter placement, on xarelto and ASA -Stopped xarelto, ASA 05/03/20 with improvement, today light pink -H/H stable -Monitor bleeding, CBC UTI , Enterobacter cloacae -WBC wnl, afebrile -BCx NG x 2 sets -C/w levofloxacin (Day 2) -Per Dr. Kilpatrick, patient should follow up with PCP to see if they think he should continue prophylactic therapy with abx. Due to him not following regularly with her, it is not really known if he needs to continue this or not. HCAP -WBC wnl, afebrile -Saturating well on RA -Sputum culture still, BCx NG at 48 hrs -C/w levofloxacin (Day 2) Urinary retention likely 2/2 to neurogenic bladder 2/2 MS vs.BPH -Discussed with Dr. Fofana (urology) who believes, since patient has been on f florecita this hospitalization, it is likely that MS is causing continued retention. -C/w mijares catheter, voiding trial on 05/08/20 wherever he may be. Based on this trial will determine whether or not to continue with mijares catheter. -C/w flomax Weakness likely 2/2 to acute infection above -PT/OT: Would benefit from Rehab services -Goal is ARU History of arterial thrombosis -D/c AC currently due to hematuria -Resume xarelto 24 hours after bleeding completely resolved. Then can try to add ASA in days after that to decrease bleeding risk if trauma to prostate is whats causing bleeding. Diabetes -BS controlled -Sliding scale insulin coverage. -Hold his metformin for now. Multiple sclerosis (MS). -Generalized weakness not 2/2 to MS flare -PT/OT Recent umbilical hernia repair. -Surgical site looks clean DVT px -Holding Xarelto due to hematuria -SCD, teds DISPOSITION: C/w PT/OT. Plan is rehab when hematuria resolves. VS, I&O, 24H, Fishbone Vital Signs/I&O Vital Signs Date Time Temp Pulse Resp B/P (MAP) Pulse Ox O2 Delivery O2 Flow Rate FiO2 05/04/20 12:00 96.9 84 18 135/60 (85) 93 05/03/20 12:00 Room Air 05/01/20 06:30 1.0 I&O- Last 24 Hours up to 6 AM 05/04/20 06:00 Intake Total 1500 ml Output Total 2550 ml Balance -1050 ml Laboratory Data 24H LABS Laboratory Tests 2 05/03/20 16:31: Bedside Glucose (Misc Panel) 204H 05/03/20 21:03: Bedside Glucose (Misc Panel) 261H 05/04/20 04:52: Immature Granulocyte % (Auto) 0.7, Neutrophils (%) (Auto) 68.4H, Lymphocytes (%) (Auto) 15.6L, Monocytes (%) (Auto) 7.7H, Eosinophils (%) (Auto) 7.0H, Basophils (%) (Auto) 0.6, Neutrophils # (Auto) 4.6, Lymphocytes # (Auto) 1.1L, Monocytes # (Auto) 0.5, Eosinophils # (Auto) 0.5, Basophils # (Auto) 0.0, Nucleated Red Blood Cells % (auto) 0.0, Anion Gap 8, Glomerular Filtration Rate 56.5, Calcium Level 8.2L 05/04/20 11:58: Bedside Glucose (Misc Panel) 160H CBC/BMP Laboratory Tests 05/04/20 04:52 Microbiology Microbiology 10/21/20 Gram Stain - Final, Resulted 05/03/20 Sputum Culture, Resulted Pending 05/01/20 Blood Culture - Preliminary, Resulted No Growth after 72 hours. All specime... 05/01/20 Respiratory Virus Panel (PCR) ([facility]ERELLE) - Final, Complete 05/01/20 Urine Culture - Final, Complete Enterobacter Cloacae Complex 05/01/20 Blood Culture - Preliminary, Resulted No Growth after 72 hours. All specime... Current Medications Current Medications Medications (Trade) Dose Ordered Sig/Avelino Route PRN Reason Start Time Stop Time Status Last Admin Dose Admin Albuterol/ Ipratropium (Duoneb (Ipr 0.5mg/Alb 2.5mg)) 3 ml Q2HP PRN NEB SOB/WHEEZING 05/01/20 07:45 Albuterol/ Ipratropium (Duoneb (Ipr 0.5mg/Alb 2.5mg)) 3 ml RQ6H NEB 05/01/20 08:00 05/04/20 13:54 Ascorbic Acid (Vitamin C) 500 mg DAILY PO 05/01/20 09:00 05/04/20 09:24 Aspirin (Ecotrin) 81 mg QHS PO 05/01/20 21:00 05/03/20 09:48 DC 05/02/20 20:55 Baclofen (Lioresal) 5 mg TID PO 05/01/20 16:00 05/04/20 09:24 Baclofen (Lioresal) 5 mg TID PRN PO MUSCLE SPASMS 05/01/20 07:45 05/01/20 16:08 DC Calcium Carbonate (Oscal) 500 mg DAILY PO 05/01/20 09:00 05/04/20 09:24 Ceftaroline Fosamil 400 mg/ Dextrose 50 ml @ 50 mls/hr Q12H IV 05/01/20 09:15 05/03/20 08:07 DC 05/02/20 20:55 Dextrose (Dextrose 50%) 25 ml ASDIRECTED PRN IV SEE LABEL COMMENTS 05/01/20 09:15 Docusate Sodium (Colace) 200 mg BID PO 05/01/20 09:00 05/04/20 09:24 Fluticasone Propionate (Flonase 0.05% Nasal [place]) 2 spray DAILY PRN NARES CONGESTION 05/01/20 07:45 05/01/20 17:40 Glucagon (Glucagon) 1 mg ASDIRECTED PRN SC SEE LABEL COMMENTS 05/01/20 09:15 Glucose (Glucose) 16 GM ASDIRECTED PRN PO SEE LABEL COMMENTS 05/01/20 09:15 Home Med (Med Rec Complete!) ASDIRECTED XX 05/01/20 04:30 05/01/20 04:23 DC Insulin Human Lispro (HumaLOG INSULIN) SEE PROTOCOL TABLE AC SC 05/01/20 12:00 05/04/20 13:10 Insulin Human Lispro (HumaLOG INSULIN) SEE PROTOCOL TABLE QHS SC 05/01/20 21:00 05/03/20 21:18 Lactic Acid (Lac-Hydrin 12% Lotion) APPLY TO AREAS OF DRY SKIN DAILY TOP 05/01/20 09:00 05/04/20 09:53 Lactic Acid (Lac-Hydrin 12% Lotion) APPLY TO AREAS OF DRY SKIN DAILY PRN TOP DRY SKIN 05/01/20 07:45 05/01/20 16:08 DC Lactobacillus Acidophilus (Bacid) 2 ea TID PO 05/01/20 09:00 05/04/20 09:24 Levofloxacin (Levaquin) 500 mg DAILY@06 PO 05/03/20 06:00 05/04/20 06:20 Losartan Potassium (Cozaar) 25 mg DAILY PO 05/01/20 09:00 05/04/20 09:24 Omeprazole (PriLOSEC) 20 mg DAILY PO 05/01/20 09:00 05/04/20 09:24 Polyethylene Glycol (Miralax) 1 pkt BID PO 05/01/20 21:00 05/04/20 09:20 Polyethylene Glycol (Miralax) 1 pkt BID PRN PO CONSTIPATION 05/01/20 07:45 05/01/20 16:08 DC Rivaroxaban (Xarelto) 2.5 mg BID@08,18 PO 05/01/20 08:00 05/01/20 11:03 DC Rivaroxaban (Xarelto) 2.5 mg BID@08,18 PO 05/01/20 08:00 05/03/20 09:46 DC 05/03/20 09:06 Sodium Chloride 1,000 ml @ 85 mls/hr [id number] IV 05/04/20 08:00 05/04/20 09:22 Sodium Chloride 1,000 ml @ 100 mls/hr Q10H IV 05/01/20 06:30 05/02/20 18:41 DC 05/02/20 17:38 Sodium Chloride (Saline Lock Flush) 2 ml ASDIRECTED PRN IV SEE LABEL COMMENTS 05/01/20 11:00 Sodium Chloride (Saline Lock Flush) 2 ml SLF IV 05/01/20 14:00 05/04/20 06:21 Tamsulosin HCl (Flomax) 0.4 mg QHS PO 05/01/20 21:00 05/03/20 21:06 Vancomycin HCl 1000 mg/IV Miscellaneous Supplies 1 each/ Dextrose 270 ml @ 270 mls/hr NOW IV 05/01/20 03:30 05/01/20 03:40 DC Vitamin D (Vitamin D) 2,000 units QHS PO 05/01/20 21:00 05/03/20 21:05 Allergies Coded Allergies: gabapentin (Verified Adverse Reaction, Intermediate, elevates MS symptoms, 04/25/20) modafinil (Verified Adverse Reaction, Intermediate, elevate MS symptoms, 04/25/20) [id number] Reductase Inhibitor (Verified Adverse Reaction, Mild, "PASSES OUT", 04/25/20) glatiramer (copolymer 1) (Verified Adverse Reaction, Mild, weakness, 04/25/20) Desiree Zhang MD May 04, 2020 15:05
[2020-05-04 16:00] VITALS: BP 138/75
[2020-05-04 20:00] VITALS: BP 158/90
[2020-05-04] MEDS: VITAMIN D 1,000 INTERNATIONAL UNITS TABLET PO SCH (20:32)
[2020-05-04] MEDS: TAMSULOSIN 0.4 MG CAP PO SCH (20:33)
[2020-05-05] MEDS: NS 1,000 ML IV SCH ×2 (00:31→08:20)
[2020-05-05] MEDS: IPRATROPIUM 0.5MG/ALBUTEROL 2.5MG INH SOL UD 3ML (DUONEB) NEB SCH ×3 (02:47→12:53)
[2020-05-05 04:00] VITALS: BP 144/70
[2020-05-05] MEDS: SLF 3 ML SYR IV SCH (05:16)
[2020-05-05] MEDS: LevoFLOXacin 500 MG TABLET PO SCH (05:16)
[2020-05-05 05:38] LABS: BASO # 0.1 10^3/uL (0.0-0.2); BASO % 1.1 % (0.0-1.0); EOS # 0.4 10^3/uL (0.0-0.5); EOS % 7.2 % (0.0-3.0); LYMPH # 1.3 10^3/uL (1.5-5.0); LYMPH % 22.4 % (24.0-44.0); MEAN CORPUSCULAR HEMOGLOBIN 29.9 pg (27.0-33.0); MEAN CORPUSCULAR HGB CONC 32.4 g/dl (32.0-36.5); MONO # 0.5 10^3/uL (0.0-0.8); MONO % 9.5 % (0.0-5.0); NEUTROPHILS # 3.2 10^3/uL (1.5-8.5); NEUTROPHILS % 58.2 % (36.0-66.0); PLATELET COUNT, AUTOMATED 263 10^3/uL (150-450); RED BLOOD COUNT 4.02 10^6/uL (4.30-6.10); WHITE BLOOD COUNT 5.6 10^3/uL (4.0-10.0)
[2020-05-05 06:03] LABS: CALCIUM LEVEL 8.7 MG/DL (8.8-10.2); CREATININE FOR GFR 1.27 MG/DL (0.70-1.30); GLOMERULAR FILTRATION RATE 58.5 (>42); POTASSIUM SERUM 4.5 MEQ/L (3.5-5.1)
[2020-05-05] MEDS ORDERED: LEVO500T3 PO (07:45)
[2020-05-05 08:00] VITALS: BP 144/84
[2020-05-05] MEDS: DOCUSATE SODIUM 100 MG CAP PO SCH (08:18)
[2020-05-05] MEDS: OMEPRAZOLE 20 MG CAP PO SCH (08:18)
[2020-05-05 08:19] VITALS: BP 144/84
[2020-05-05] MEDS: MIRALAX *UNIT DOSE* 17GM PACKET PO SCH (08:19)
[2020-05-05] MEDS: LACTOBACILLUS ACIDOPHILUS CAP (BACID) PO SCH (08:19)
[2020-05-05] MEDS: LOSARTAN 25 MG TAB PO SCH (08:19)
[2020-05-05] MEDS: ASCORBIC ACID 500 MG TAB PO SCH (08:19)
[2020-05-05] MEDS: HumaLOG INSULIN (NovoLOG) PER UNIT SC SCH ×2 (08:19→13:23)
[2020-05-05] MEDS: FLUTICASONE PROP 0.05% NASAL SPRAY 16 GM (FLONASE) NARES PRN (08:22)
[2020-05-05] MEDS: LACTIC ACID 12% LOTION 225 GM BTL TOP SCH (08:23)
[2020-05-05] MEDS: OYSTER SHELL CALCIUM 500 MG TAB PO SCH (08:34)
[2020-05-05] MEDS: BACLOFEN 5MG PER 1/2 TABLET PO SCH (08:34)
[2020-05-05] MEDS ORDERED: ACETAMINOPHEN TAB 650MG DOSE (2X325MG) PO PRN (11:45)
[2020-05-05] MEDS ORDERED: MIRALAX *UNIT DOSE* 17GM PACKET PO PRN (11:45)
--- NOTE | 2020-05-05 17:58 | DS.PDOC ---
Discharge Summary General Date of Admission May 01, 2020 at 07:40 Date of Discharge 05/05/20 Attending Physician: Desiree Zhang MD Discharge Summary HISTORY OF PRESENT ILLNESS: Manoj Smith is a 75-year-old patient that I have followed for about 30 years who has a recent medical history of umbilical herniarepair done on 04/28/2020, uncomplicated. He seemed to be recovering well at home. He became quite weak today and had trouble getting in and out of bed needing assistance last evening from his daughter and her , and then this morning his legs were too weak to stand. He came to the emergency room where CT scan of the chest suggested infiltrate versus atelectasis. He has leukocytosis, so he is admitted for pneumonia. He has a recent history of hospitalization for suspected pneumonia earlier in April. He has chronic infiltrates on his chest x-ray, so it is hard to sort out acute from chronic with him. HOSPITAL COURSE: The patient initially continued with IV antibiotics after admission and was later tailored to oral levofloxacin which would cover both pneumonia and urinary tract infection. UA was positive later identified as Enterobacter cloacae, sensitive to levofloxacin. Sputum culture later returned as normal silas. Patient had expressed that he was having increasing urinary retention and difficulty urinating even prior to being admitted. This was discussed with Dr. Fofana, urology. As the patient has been on his BPH medications it is unlikely that the patient had increased urinary retention secondary to uncontrolled BPH. He was more concerned that the urinary retention was likely secondary to multiple sclerosis which, unfortunately, most times means continuing with Mijares catheter. He suggested voiding trial on 05/08/2020 to see if he would need to continue with Mijares catheter. The patient experienced some hematuria likely secondary to being on anticoagulants after likely traumatic mijares catheter insertion. Xarelto and aspirin were held in the days before discharge for this reason. Patient's creatinine had increased and he was started on gentle IV fluids on 05/04/2020. Creatinine on the morning of 05/05/2020 was within normal limits and it was decided the patient to be discharged. His hematuria had also resolved. He did not require transfusion or any other acute treatment for his hematuria outside of stopping offending agents and allowing the prostate to heal. Patient was thoroughly evaluated by physical/occupational therapy who suggested continued rehabilitation after his acute inpatient stay. On 05/05/2020 the patient was discharged to acute rehabilitation unit at [facility] to continue rehabilitation. At the time of discharge, patient had no acute complaints. Note: The patient's daughter Grisel was very concerned about the patient not continuing prophylactic antibiotic for urinary tract infection. Dr. Kilpatrick, infectious disease, was contacted and her suggestion was to see how the patient did off of the prophylactic antibiotic, as nobody in the outpatient setting has done that after the patient being on prophylactic antibiotics for UTI for almost one year. If the patient develops another UTI then it would warrant continued prophylactic antibiotic use but there should be at least a trial period to see how he does off of it. The patient was discharged with levofloxacin to continue for 3 additional days and then after that observation will begin on watching this closely. PAST MEDICAL HISTORY: * Severe multiple sclerosis (MS) for which he has been disabled for over 30 years * Type 2 diabetes under excellent control. * Fatty liver confirmed by ultrasound. * Hypertensive heart disease. * Hyperlipidemia with intolerance to statins. * Obstructive sleep apnea. * Vitamin B deficiency. 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 * Status post tPA. * He was on warfarin until the CT, who manages him through the anticoagulation clinic, placed him on Xarelto 2.5 mg b.i.d. * Cellulitis of the right hand secondary to methicillin-resistant Staphylococcus aureus (MRSA) 10/2009. * Meningioma followed by the CT and reports he is asymptomatic. * Neurogenic bladder from multiple sclerosis (MS). * Chronic infiltrates on CT scans of the chest going back to 06/2008. * Hemochromatosis carrier confirmed on 03/2005. * Cystoscopy done 04/2019, for erythematous patches on the posterior wall of the bladder. Cytology showed atypical cells. * Urinary infections, most recently Escherichia coli urinary tract infection (UTI) 04/2019. * Abdominal aortic aneurysm that is small seen on CT scan of the abdomen and pelvis 04/1019, that was 3.7 cm. * Spontaneous hematoma of the left thigh 05/2019, he was switched to Xarelto 07/2019. * Gastritis on an esophagogastroduodenoscopy (EGD) from 05/2019. * Liver biopsy done 05/2019, that did not show any malignancy. He has a persisting mass on his liver that has been negative to biopsy. 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 * Transurethral resection of the prostate (TURP) 03/2009. * Colonoscopy 03/2004, as well as 2007, and most recently 05/2019. * Liver biopsy 05/2019. * Esophagogastroduodenoscopy (EGD) 05/2019. * Left inguinal hernia repair 05/2019. * Umbilical hernia repair 04/2020. FAMILY HISTORY: Father had hypertension. Mother had diabetes. SOCIAL HISTORY: Quit smoking many years ago. No alcohol use. He is disabled fromhis MS. He is . His is very attentive and also has very attentive family members. ALLERGIES: - ATORVASTATIN CAUSED MYALGIAS. - COPAXONE MADE HIS MS SYMPTOMS WORSE. - PROVIGIL MADE HIS MS SYMPTOMS WORSE. - PRAVASTATIN CAUSED GENERALIZED WEAKNESS. - AMANTADINE CAUSED GENERALIZED WEAKNESS. - GABAPENTIN CAUSED HIM TO PASS OUT. - AMLODIPINE CAUSED SWELLING OF HIS LEGS. DISCHARGE MEDICATIONS: Please see below. PHYSICAL EXAMINATION: VITAL SIGNS: Please see below GENERAL: In NAD, resting in bedside chair. HEENT: PERRLA, EOM intact, oral mucosa moist NECK: No masses, no JVD LUNGS: CTAB, no wheezing, rhonchi or rales HEART: S1S2 +, no M/R/G : mijares catheter with 300 mL of light yellow urine ABDOMEN: Soft and nontender with no masses. Umbilical hernia repair site- no erythema, swelling or pain on palpation EXTREMITIES: No clubbing or cyanosis. Trace peripheral edema. Normal strength in the arms and legs. Braces in place on b/l lower ext PSYCH: Mood and affect appropriate LABORATORY DATA: Please see below MICROBIOLOGY: BCx NG at 72 hrs x 2 sets UCx: Enterbacter cloacae Sputum cx: normal silas IMAGING: CT of the abdomen and pelvis shows cirrhosis. He had bilateral airspace consolidation, atelectasis versus pneumonia, bladder outlet obstruction suggested, and urinary catheter has been placed. IMPRESSION/PLAN: Hematuria likely 2/2 to trauma s/p mijares catheter placement, on xarelto and ASA. Resolved. -Stopped xarelto, ASA 05/03/20 with improvement -H/H stable -Resume home xarelto, can introduce ASA back to regimen in several days as specified on discharge instructions. -F/u CBC UTI , Enterobacter cloacae -WBC wnl, afebrile -BCx NG x 2 sets -Day three levofloxacin (Day 3) -Per Dr. Kilpatrick, patient should be monitored off abx therapy to see if he truly needs it going forward. Normally this is done by PCP;however, this was not done. If he develops another UTI, then prophylasix should be restarted. HCAP -WBC wnl, afebrile -Saturating well on RA -Sputum culture growing normal silas and , BCx NG at 48 hrs -Will continue with 7 day treatment course despite normal silas on sputum culture, unknown how good specimen was. -C/w levofloxacin (Day 3/7) Urinary retention likely 2/2 to neurogenic bladder 2/2 MS and BPH -Discussed with Dr. Fofana (urology) who believes, since patient has been on flomax this hospitalization, it is likely that MS is causing continued re tention. -C/w mijares catheter, voiding trial on 05/08/20 wherever he may be. Based on this trial will determine whether or not to continue with mijares catheter. Nursing in ARU to call Dr. Fofana's office to see about specific instructions on trial and report back to Dr. Fofana. -C/w flomax Weakness likely 2/2 to acute infection above -PT/OT: Would benefit from Rehab services History of arterial thrombosis -D/violetta AC previously to hematuria -Resume xarelto today, resume ASA in several days. . Diabetes -BS controlled -Sliding scale insulin coverage. -Hold his metformin for now. Multiple sclerosis (MS). -PT/OT Recent umbilical hernia repair. -Surgical site looks clean DISPOSITION: D/c to ARU today. TIME SPENT ON DISCHARGE: Greater than 30 minutes. Vital Signs/I&Os Vital Signs Date Time Temp Pulse Resp B/P (MAP) Pulse Ox O2 Delivery O2 Flow Rate FiO2 05/05/20 08:19 144/84 05/05/20 08:00 97.3 99 17 96 Room Air 05/01/20 06:30 1.0 I&O- Last 24 Hours up to 6 AM 05/05/20 06:00 Intake Total 1875 ml Output Total 3500 ml Balance -1625 ml Laboratory Data Labs 24H Laboratory Tests 2 05/04/20 20:07: Bedside Glucose (Misc Panel) 159H 05/05/20 05:13: Immature Granulocyte % (Auto) 1.6, Neutrophils (%) (Auto) 58.2, Lymphocytes (%) (Auto) 22.4L, Monocytes (%) (Auto) 9.5H, Eosinophils (%) (Auto) 7.2H, Basophils (%) (Auto) 1.1H, Neutrophils # (Auto) 3.2, Lymphocytes # (Auto) 1.3L, Monocytes # (Auto) 0.5, Eosinophils # (Auto) 0.4, Basophils # (Auto) 0.1, Nucleated Red Blood Cells % (auto) 0.0, Anion Gap 7L, Glomerular Filtration Rate 58.5, Calcium Level 8.7L 05/05/20 11:50: Bedside Glucose (Misc Panel) 166H CBC/BMP Laboratory Tests 05/05/20 05:13 FSBS Laboratory Tests Test 05/04/20 20:07 05/05/20 11:50 Range/Units Bedside Glucose (Misc Panel) 159 166 83-110 MG/DL Microbiology Microbiology 05/03/20 Gram Stain - Final, Complete 05/03/20 Sputum Culture - Final, Complete 05/01/20 Blood Culture - Preliminary, Resulted No Growth after 72 hours. All specime... 05/01/20 Respiratory Virus Panel (PCR) (CHERELLE) - Final, Complete 05/01/20 Urine Culture - Final, Complete Enterobacter Cloacae Complex 05/01/20 Blood Culture - Preliminary, Resulted No Growth after 72 hours. All specime... Discharge Medications Scheduled Alpha Lipoic Acid (Alpha Lipoic Acid) 200 Mg Tab, 200 MG PO BID, (Reported) Ascorbic Acid (Vitamin C) 500 Mg Cap, 500 MG PO DAILY, (Reported) Calcium Carbonate (Calcium) 500 Mg Tablet, 500 MG PO DAILY, (Reported) Cholecalciferol (Vitamin D3) (Vitamin D3) 1,000 Unit Tablet, 2,000 UNITS PO QHS, (Reported) Docusate Sodium (Docusate Sodium) 100 Mg Capsule, 200 MG PO BID, (Reported) L.acidoph/L.bulg/B.bif/S.therm (Naomi-Bid Caplet) 1 Each Tablet, 1 TAB PO TID, (Reported) Levofloxacin (Levofloxacin) 500 Mg Tablet, 500 MG PO DAILY@06 Losartan Potassium (Losartan Potassium) 25 Mg Tablet, 25 MG PO DAILY, (Reported) Metformin HCl (Metformin HCl ER) 500 Mg Tab.er.24h, 500 MG PO QHS, (Reported) Omeprazole (Omeprazole) 20 Mg Capsule.dr, 20 MG PO DAILY, (Reported) Rivaroxaban (Xarelto) 2.5 Mg Tablet, 2.5 MG PO BID, (Reported) Tamsulosin HCl (Flomax) 0.4 Mg Capsule, 0.4 MG PO QHS, (Reported) Scheduled PRN Ammonium Lactate (Ammonium Lactate) 12% Lotion, 1 DOSE TOP DAILY PRN for DRY SKIN, (Reported) APPLIES TO AREAS OF DRY SKIN Baclofen (Baclofen) 10 Mg Tablet, 5 MG PO TID PRN for MUSCLE SPASMS, (Reported) Fluticasone Propionate (Fluticasone Propionate) 16 Gm [place].susp, 2 SPRAY NARES DAILY PRN for CONGESTION, (Reported) Polyethylene Glycol 3350 (Miralax) 119 Gm Powder, 17 GM PO BID PRN for CONSTIPATION, (Reported) dilute in 8 ounces of water or juice Allergies Coded Allergies: gabapentin (Verified Adverse Reaction, Intermediate, elevates MS symptoms, 04/25/20) modafinil (Verified Adverse Reaction, Intermediate, elevate MS symptoms, 04/25/20) Jqnjwjm-Iwg-Ome Reductase Inhibitor (Verified Adverse Reaction, Mild, "PASSES OUT", 04/25/20) glatiramer (copolymer 1) (Verified Adverse Reaction, Mild, weakness, 04/25/20) Desiree Zhang MD May 05, 2020 17:58
[2020-05-05] MEDS ORDERED: RIVAROXABAN 20 MG TAB (XARELTO) PO SCH (21:00)
[2020-05-06] MEDS ORDERED: MULTIVITAMINS/MINERALS THERAP 1 TAB PO SCH (09:00)
[2020-05-06] MEDS ORDERED: OMEPRAZOLE 20 MG CAP PO SCH (09:00)
== END 2020-05-05 14:21 | DRG 659 ==
LOC: M ED 02:24 → M ED INP 07:40 → ENRESERV 08:20 → M PCU 09:59
PROVIDERS: ADMIT Internal Medicine; ATTEND Internal Medicine
PROC: 0WQF4ZZ Repair Abdominal Wall, Percutaneous Endoscopic Approach (ICD-10-PCS; principal; 2020-04-28)
PROC: 8E0W4CZ Robotic Assisted Procedure of Trunk Region, Percutaneous Endoscopic Approach (ICD-10-PCS; 2020-04-28)
DX: N39.0 Urinary tract infection, site not specified (principal); J18.9 Pneumonia, unspecified organism; K42.0 Umbilical hernia with obstruction, without gangrene; G35 Multiple sclerosis; E11.9 Type 2 diabetes mellitus without complications; K76.0 Fatty (change of) liver, not elsewhere classified; I11.9 Hypertensive heart disease without heart failure; N40.1 Benign prostatic hyperplasia with lower urinary tract symptoms; R33.9 Retention of urine, unspecified; E78.5 Hyperlipidemia, unspecified; R31.9 Hematuria, unspecified; G47.33 Obstructive sleep apnea (adult) (pediatric); E53.8 Deficiency of other specified B group vitamins; B96.89 Other specified bacterial agents as the cause of diseases classified elsewhere; R53.1 Weakness; N31.9 Neuromuscular dysfunction of bladder, unspecified; K74.60 Unspecified cirrhosis of liver; Z86.718 Personal history of other venous thrombosis and embolism; Z87.891 Personal history of nicotine dependence; Z88.8 Allergy status to other drugs, medicaments and biological substances; Z20.828 Contact with and (suspected) exposure to other viral communicable diseases; M10.9 Gout, unspecified; F32.9 Major depressive disorder, single episode, unspecified; K21.9 Gastro-esophageal reflux disease without esophagitis; Z79.01 Long term (current) use of anticoagulants; Z79.84 Long term (current) use of oral hypoglycemic drugs; Z79.899 Other long term (current) drug therapy

== ENCOUNTER 2020-05-05 11:51 | Inpatient (IN) | payer MEDICARE ==
[~2020-05-05] VITALS: Ht 175.3 cm; Wt 84.9 kg
[~2020-05-05 11:51] MED LIST changes: +LEVO500T3 PO
[2020-05-05] MEDS ORDERED: MIRALAX *UNIT DOSE* 17GM PACKET PO PRN ×2 (12:30)
[2020-05-05] MEDS ORDERED: FLUTICASONE PROP 0.05% NASAL SPRAY 16 GM (FLONASE) NARES PRN (12:30)
[2020-05-05] MEDS ORDERED: ACETAMINOPHEN TAB 650MG DOSE (2X325MG) PO PRN ×2 (12:30)
[2020-05-05] MEDS ORDERED: CALCIUM CARBONATE 500 MG CHEW U/D PO PRN (12:30)
[2020-05-05 14:00] VITALS: BP 170/90
[2020-05-05] MEDS: IPRATROPIUM 0.5MG/ALBUTEROL 2.5MG INH SOL UD 3ML (DUONEB) NEB SCH ×2 (14:00→20:30)
[2020-05-05] MEDS ORDERED: PILL CUTTER 1 EACH XX PRN (15:00)
[2020-05-05] MEDS: BACLOFEN 5MG PER 1/2 TABLET PO SCH ×2 (17:02→21:21)
[2020-05-05] MEDS: LACTOBACILLUS ACIDOPHILUS CAP (BACID) PO SCH ×2 (17:02→21:21)
--- NOTE | 2020-05-05 17:08 | HPEPDOC ---
[employer] Note DATE OF ADMISSION: DATE OF SERVICE: TIME OF ADMISSION: Please refer to physician's admission order. SOURCE OF ADMISSION INFORMATION: CHIEF COMPLAINT: . HISTORY OF PRESENT ILLNESS: REVIEW OF SYSTEMS: The following is a completed review of systems and has been reviewed. Review of systems otherwise unremarkable. PAIN: Patient self reports [no pain]. EYES: [No recent vision changes]. EARS, NOSE, & THROAT: [No throat pain, or dysphagia, or rhinorrhea]. CARDIOVASCULAR: [Denies chest pain or palpitations]. PULMONARY: [Denies shortness of breath]. GASTROINTESTINAL: [Denies constipation/diarrhea]. GENITOURINARY: . MUSCULOSKELETAL: . NEUROLOGICAL:. HEMATOLOGICAL: . SKIN: . PSYCHIATRIC: [Unremarkable]. All other review of systems found to be negative. PAST MEDICAL HISTORY: 1. . 2. . 3. . 4. . 5. . PAST SURGICAL HISTORY: 1. . 2. . 3. . 4. . 5. . ALLERGIES: Please see below. MEDICATIONS: Please see below. FAMILY HISTORY: . SOCIAL HISTORY: . DIET: . PHYSICAL EXAMINATION: VITAL SIGNS: Please see below. GENERAL: [Pleasant and cooperative. No acute distress. Alert and oriented times three.] HEENT: [PERRL. Extraocular movements intact. Clear conjunctiva]. CARDIOVASCULAR: [Regular rate and rhythm. No murmurs, rubs, or gallops]. LUNGS: [Clear to auscultation bilaterally. No wheezes. No rhonchi]. ABDOMEN: [Soft, nontender, nondistended. Positive bowel sounds. Normal active bowel sounds]. NEUROLOGICAL: [Alert and oriented times three. Cranial nerves II through XII grossly intact. Sensation grossly intact]. EXTREMITIES: [\\5 strength bilateral upper extremities. \\5 strength right lower extremity. /5 strength in left lower extremity. range of motion in left lower extremity]. SKIN: . LABORATORY DATA: Please see below. IMAGING:[Imaging documentation personally reviewed by record]. FUNCTIONAL STATUS: Premorbid: [Independent with all activities of daily life as well as mobility]. On Admission: [Total assistance for lower body dressing, shower transfers, stairs]. [Maximum] assistance for bathing, upper body dressing, bed chair and wheelchair transfers, toilet transfers, ambulation. [Minimum] assistance for grooming. [Supervision] for memory and problem solving. [Modified] independence for social interaction, expression, comprehension, bowel and bladder. GOALS: ASSESSMENT:-year-old with past medical history of who presents status post PLAN: 1. . 2. . 3. . 3. . 4. . POST ADMISSION PHYSICIAN EVALUATION: Medical and functional status: Description of medical status, medical assessment: As above. Rehabilitation diagnosis and current and prior cold morbid medical conditions as above. Risk of complications and plans to mitigate them as above. Description of functional status current status is as above. Prior status as above. Status compared to preadmission: There are no clinically significant differences between the patient's current status and the information described on the pread mission screening document. Treatment plan anticipated: Treatment plan is as described above. Required disciplines including physical therapy, occupational therapy, others as noted above]. Intensity of services: hours a day, days a week. Special considerations: [There are no specific special or safety considerations that would likely preclude immediate implementation of an intensive rehabilitation program or subsequently influence the plan of care]. ATTESTATION: [Considering all the information above, it is my best judgment that this patient requires intensive rehabilitation therapy as described above and an inpatient hospital environment due to the complexity of nursing, medical, and rehabilitation needs required by the patient. Furthermore, this patient can reasonably be expected to participate in an benefit from an inpatient rehabilitation stay with an interdisciplinary team approach to the delivery of rehabilitation care under the direction and supervision of rehabilitation physician]. PROGNOSIS: [Excellent]. ESTIMATED LENGTH OF STAY:- days. PROJECTED DISCHARGE DESTINATION: [Home with family support and any durable medical equipment required to increase functional safety and mobility]. TIME SPENT COUNSELING AND COORDINATING INITIAL CARE: Greater than minutes. Vital Signs DATE OF SERVICE: 05.05.2020 SOURCE OF ADMISSION INFORMATION:, Medical records and patient, including input from his POA adequate historians ADMITTING DIAGNOSES: Status post laparoscopic repair of strangulated umbilical hernia 04/28/2020 MS with 30 year disability predominantly left radha-and bilateral lower extremity paresis with coordination, balance and some visual deficits Type 2 diabetes, well controlled. Fatty liver. Hypertension. Hypertensive heart disease. Obstructive sleep apnea. Vitamin D deficiency. Neurogenic bladder. Hemochromatosis. Hematuria with prior cystoscopy 2019 noted for atypical cells in the bladder. UTI. Sinus tachycardia. Pneumonia CHIEF COMPLAINT: Generalized weakness, decreased coordination, abdominal distention, urinary retention requiring Urban drainage HISTORY OF PRESENT ILLNESS: 75 year-old gentleman with 30 year history of multiple sclerosis who presents status post laparoscopic repair of umbilical hernia 04/28/2020, who was discharged home and then returned due to progressive weakness and presentation of ER noted to have elevated white count, radiographic changes in the chest resulting in admission for pneumonia. He was also found to be suffering with complications of UTI, possible pneumonia, profound hematuria related to Urban placement in presence of anticoagulation for prior history of arterial thrombosis. He is currently medically stable and ready to begin comprehensive rehabilitation and will require close medical attention and coordination of his complex chronic care needs. He is autoimmune condition has probably flared as a result of the recent series of events resulting in significant deterioration in function, increased weakness, less coordination and increased risk of falls, requiring intervention of physical therapy, occupational therapy, rehabilitative nursing and physiatry care coordination. REVIEW OF SYSTEMS: The following is a completed review of systems and has been reviewed. Review of systems otherwise unremarkable. PAIN: Patient self reports no pain. EYES: No recent vision changes. EARS, NOSE, & THROAT: No throat pain, or dysphagia, or rhinorrhea. CARDIOVASCULAR: Denies chest pain or palpitations. PULMONARY: Denies shortness of breath. GASTROINTESTINAL: Denies constipation/diarrhea. Healing surgical site GENITOURINARY: . Urban dependent MUSCULOSKELETAL: No new complaints. NEUROLOGICAL:. Long-standing MS. Generalized lower extremity greater than upper extremity, left greater than right sided weakness HEMATOLOGICAL: Status post hematuria, stable . SKIN: . Intact PSYCHIATRIC: Unremarkable. All other review of systems found to be negative. 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 Previously managed on warfarin. Status post cellulitis right hand secondary to MRSA 10. [facility]eningi[facility], [facility] Chronic infiltrates. [facility] scans of the chest convexed 2007. Abdominal aortic aneurysm. 1019 3.7 cm Spontaneous hematoma, left thigh 1119. Gastritis 2019. Liver biopsy 2019 with persisting mass and cirrhosis Bladder abnormalitieshistory prior cystoscopy 2019 noted for atypical cells in the bladder reported negative cytology on subsequent evaluation about to undergo reassessment next week. PAST SURGICAL HISTORY: TURP 2009 Liver biopsy 09/02/2018 EGD 2019 Left inguinal hernia repair 2019 Umbilical hernia repair 05/02/2020 ALLERGIES: Please see below. Reported atorvastatin and pravastatin cause myalgias, Copaxone, aggravated MS, Provigil, aggravated MS Nicho cause generalized weakness, gabapentin, syncope, amlodipine, cause swelling in the lower extremities MEDICATIONS: Please see below. FAMILY HISTORY: Father, hypertension, mother. Diabetes. SOCIAL HISTORY: Non-. Smoker, no EtOH, lives with his in a in his daughters home until an apartment is ready, it is a single story home with 3 step entrance. DIET: .Regular PHYSICAL EXAMINATION: VITAL SIGNS: Please see below. GENERAL: Pleasant and cooperative. No acute distress. Alert and oriented times three. Slow, appropriate speech HEENT: Midright assists Extraocular movements intact with some popping nystagmus on testing. Clear conjunctiva, no adenopathy or thyromegaly. Full cervical range of motion without tenderness or spasm. CARDIOVASCULAR: Regular rate and rhythm. No murmurs, rubs, or gallops. LUNGS: Clear to auscultation bilaterally. No wheezes. No rhonchi. Coarse breath sounds heard in the right middle lobe ABDOMEN: Soft, mildly distended. Positive bowel sounds. Normal active bowel sounds, healing port scars bilateral upper quadrants and lower quadrant. No drainage or redness. NEUROLOGICAL: Alert and oriented times three. Cranial nerves II through XII intact. Sensation intact. EXTREMITIES: Right 5 /5 Left 4/5 correspondence analyst, elbow flexion, elbow extension, deltoids, Right 4/5 left 3+/5 knee extension no obvious distal edema SKIN: intact, no sacral redness or tenderness . LABORATORY DATA: Please see below. IMAGING:Imaging documentation personally reviewed by record. FUNCTIONAL STATUS: Premorbid: Independent with all activities of daily life as well as mobility. On Admission: Pt reports primary limitation being dec activity tolerance and current indwelling catheter. Pt reports using manual W/C, electric scooter, and/or RW as needed within his apartment and/or the community. Pt reports amb short distances first thing in the morning without his AFO's and will benefit from practice as able without AFO or shoes GOALS: Maintaining medical stability, tenriism of prior level of functional mobility using assistive device, safe transfers and independent performance of activities of daily living. ASSESSMENT: Status post laparoscopic repair of strangulated umbilical hernia 04/28/2020 MS with 30 year disability predominantly left radha-and bilateral lower extremity paresis with coordination, balance and some visual deficits Neurogenic bladder. Hematuria with prior cystoscopy 2018 noted for atypical cells in the bladder reported negative cytology on subsequent evaluation UTI. Pneumonia Type 2 diabetes, well controlled. Fatty liver. Hypertension. Hypertensive heart disease. Obstructive sleep apnea. Vitamin D deficiency. Hemochromatosis. Sinus tachycardia. 75 year-old gentleman with 30 year history of multiple sclerosis who presents status post laparoscopic repair of umbilical hernia 04/28/2020 with complications of UTI, possible pneumonia, profound hematuria related to Urban placement in presence of anticoagulation for prior history of arterial thrombosis. He is currently medically stable and ready to begin comprehensive rehabilitation and will require close medical attention and coordination of his complex chronic care needs. He is autoimmune condition has probably flared as a result of the recent series of events resulting in significant deterioration in function, increased weakness, less coordination and increased risk of falls, requiring intervention of physical therapy, occupational therapy, rehabilitative nursing and physiatry care coordination. PLAN: GI Status post Recent laparoscopic umbilical hernia repair 04/28/2020, prior left inguinal hernia repair May 2019, elevated LFTs, prior extensive workup with multiple diagnostic procedures noted for cirrhosis secondary to fatty liver, liver biopsy 05/25/2019 negative for malignancy with persisting mass. History of prior gastritis. -Surgical site looks clean moving bowels. No significant discomfort. Well provide appropriate bowel management program. There was some mention in the record. No possible history of hemochromatosis over also noted low normal iron studies. Of note was a slight elevation of CEA for last May. This may need further follow-up as an outpatient. GUpatients status post recent episode of significant hematuria evidently considered posttraumatic combination with Enterobacter urinary tract infection. Xarelto was held, recently started transfer along with continuing aspirin. Creatinine stable at 1.27. He is covered with levofloxacin after several day course of ceftaroline. Dr. Boss, infectious disease specialist, has treated him in the past and he was scheduled to see Dr. Fofana, urologist , as an outpatient on the for further recommendations regarding bladder management. Evidently he had been managed for some time with nitrofurantoin suppression that was interrupted. Well proceed with transitioning to our bladder protocol on the , including bladder training prior to discontinuing the Urban closely following post void residuals and sensation, capacity to void, need for adjustment in various medications and intermittent catheterization if indicated. It is possible long-term suppression may be appropriate due to neurogenic bladder that may be worsening of his MS progressing possibly in combination with BPH. Well see how he does and discuss further next week with the various providers. Hematology-initial leukocytosis has improved with antibiotic interventions, hemoglobin, hematocrit stable. . Circulation- History of prior arterial thrombosis, on long-term anticoagulation, which had to be held due to hematuria related to incidental trauma related to Urban placement. Continue KRISTINA hose, however cautiously resume Xarelto in combination with aspirin. Well continue to monitor for evidence of rebleed. Blood pressure elevated on admission , probably related to the excitement transfer, etc. On losartan, will monitor and provide coverage for episodic spikes. Respiratory- history of hospitalization for suspected pneumonia earlier this month and chronic infiltrates noted on chest x-ray. Thus far, he is maintaining good oxygenation covered with current antibiotic approaches. Continue respiratory therapy treatments as indicated. Neuro- Patient had generalized worsening of his paraparesis, probably, wind effect of underlying long-standing MS and aggravation or flare related to infectious process. Well continue to monitor, apparently intolerant of a variety of MS, indicating medications, currently with an infection steroids not indicated, but might be considered should the weakness continued to worsen once infection is considered well treated. Patient currently denies pain. Diabetes -BS well controlled 1. Rehab- PT/OT advance gait and ADLs, strengthen/stretch/maintain ROM all 4limbs, energy conservation, family training POST ADMISSION PHYSICIAN EVALUATION: Medical and functional status: Description of medical status, medical assessment: As above. Rehabilitation diagnosis and current and prior cold morbid medical conditions as above. Risk of complications and plans to mitigate them as above. Description of functional status current status is as above. Prior status as above. Status compared to preadmission: There are no clinically significant differences between the patient's current status and the information described on the preadmission screening document. Treatment plan anticipated: Treatment plan is as described above. Required disciplines including physical therapy, occupational therapy, others as noted above]. Intensity of services: 3 hours a day, 6-7 days a week. Special considerations: While his MS may continue to fluctuate, regardless of o ur interventions, and appears that he is on recovery trend bus. There do not appear to be other specific special or safety considerations that would likely preclude immediate implementation of an intensive rehabilitation program or subsequently influence the plan of care. ATTESTATION: Considering all the information above, it is my best judgment that this patient requires intensive rehabilitation therapy as described above and an inpatient hospital environment due to the complexity of nursing, medical, and rehabilitation needs required by the patient. Furthermore, this patient can reasonably be expected to participate in an benefit from an inpatient rehabilitation stay with an interdisciplinary team approach to the delivery of rehabilitation care under the direction and supervision of rehabilitation physician. PROGNOSIS: Excellent. ESTIMATED LENGTH OF STAY:7-14 days. PROJECTED DISCHARGE DESTINATION: Home with family support and any durable medical equipment required to increase functional safety and mobility. TIME SPENT COUNSELING AND COORDINATING INITIAL CARE: Greater than 60 minutes. Vital Sign - Last 24 Hours 05/05/20 14:00 Temp 97.2 Pulse 100 Resp 19 B/P (MAP) 170/90 (116) Pulse Ox 97 O2 Delivery Room Air Home Medications Scheduled Alpha Lipoic Acid (Alpha Lipoic Acid) 200 Mg Tab, 200 MG PO BID, (Reported) Ascorbic Acid (Vitamin C) 500 Mg Cap, 500 MG PO DAILY, (Reported) Calcium Carbonate (Calcium) 500 Mg Tablet, 500 MG PO DAILY, (Reported) Cholecalciferol (Vitamin D3) (Vitamin D3) 1,000 Unit Tablet, 2,000 UNITS PO QHS, (Reported) Docusate Sodium (Docusate Sodium) 100 Mg Capsule, 200 MG PO BID, (Reported) L.acidoph/L.bulg/B.bif/S.therm (Naomi-Bid Caplet) 1 Each Tablet, 1 TAB PO TID, (Reported) Levofloxacin (Levofloxacin) 500 Mg Tablet, 500 MG PO DAILY@06 Losartan Potassium (Losartan Potassium) 25 Mg Tablet, 25 MG PO DAILY, (Reported) Metformin HCl (Metformin HCl ER) 500 Mg Tab.er.24h, 500 MG PO QHS, (Reported) Omeprazole (Omeprazole) 20 Mg Capsule.dr, 20 MG PO DAILY, (Reported) Rivaroxaban (Xarelto) 2.5 Mg Tablet, 2.5 MG PO BID, (Reported) Tamsulosin HCl (Flomax) 0.4 Mg Capsule, 0.4 MG PO QHS, (Reported) Scheduled PRN Ammonium Lactate (Ammonium Lactate) 12% Lotion, 1 DOSE TOP DAILY PRN for DRY SKIN, (Reported) APPLIES TO AREAS OF DRY SKIN Baclofen (Baclofen) 10 Mg Tablet, 5 MG PO TID PRN for MUSCLE SPASMS, (Reported) Fluticasone Propionate (Fluticasone Propionate) 16 Gm [place].susp, 2 SPRAY NARES DAILY PRN for CONGESTION, (Reported) Polyethylene Glycol 3350 (Miralax) 119 Gm Powder, 17 GM PO BID PRN for CONSTIPATION, (Reported) dilute in 8 ounces of water or juice Allergies Coded Allergies: gabapentin (Verified Adverse Reaction, Intermediate, elevates MS symptoms, 04/25/20) modafinil (Verified Adverse Reaction, Intermediate, elevate MS symptoms, 04/25/20) Otzxrwd-Qft-Qsa Reductase Inhibitor (Verified Adverse Reaction, Mild, "PASSES OUT", 04/25/20) glatiramer (copolymer 1) (Verified Adverse Reaction, Mild, weakness, 04/25/20) A-FIB/CHADSVASC A-FIB History Current/History of A-Fib/PAF?: No Current PO Anticoag Therapy: Yes Age/Risk Factor Scoring CHADSVASC: CHADSVASC Response (Comments) Value Age Risk Factor Age >/= 75 years old 2 Total 2 JING AKHTAR MD May 05, 2020 17:08
[2020-05-05] MEDS ORDERED: **hydrALAZINE** 10 MG TAB PO PRN (17:15)
[2020-05-05 18:24] VITALS: BP 166/93
[2020-05-05 20:00] VITALS: BP 142/78
[2020-05-05] MEDS ORDERED: RIVAROXABAN 10 MG TAB (XARELTO) PO SCH (21:00)
[2020-05-05] MEDS: DOCUSATE SODIUM 100 MG CAP PO SCH (21:21)
[2020-05-05] MEDS: VITAMIN D 1,000 INTERNATIONAL UNITS TABLET PO SCH (21:22)
[2020-05-05] MEDS: RIVAROXABAN 10 MG TAB (XARELTO) PO SCH (21:22)
[2020-05-06] MEDS: IPRATROPIUM 0.5MG/ALBUTEROL 2.5MG INH SOL UD 3ML (DUONEB) NEB SCH ×4 (02:46→19:14)
[2020-05-06 05:55] VITALS: BP 120/65
[2020-05-06] MEDS: LevoFLOXacin 500 MG TABLET PO SCH (06:18)
[2020-05-06 06:57] LABS: APPEARANCE, URINE CLEAR (CLEAR); BACTERIA, URINE AUTO NEGATIVE (NEGATIVE); BILIRUBIN, URINE AUTO NEGATIVE (NEGATIVE); BLOOD, URINE BLOOD 3+ (NEGATIVE); COLOR, URINE STRAW (YELLOW); GLUCOSE, URINE (UA) AUTO NEGATIVE (NEGATIVE); KETONE, URINE AUTO NEGATIVE (NEGATIVE); LEUKOCYTE ESTERASE, URINE AUTO TRACE (NEGATIVE); NITRITE, URINE AUTO NEGATIVE (NEGATIVE); PROTEIN, URINE AUTO NEGATIVE (NEGATIVE); RBC, URINE AUTO TNTC /HPF (0-3); SPECIFIC GRAVITY URINE AUTO 1.011 (1.002-1.035); SQUAMOUS EPITHELIAL CELL UR AU 0 /HPF (0-6); UROBILINOGEN, URINE AUTO 0.2 mg/dL (0.0-2.0); WBC, URINE AUTO 5 /HPF (0-3)
[2020-05-06] MEDS: MULTIVITAMINS/MINERALS THERAP 1 TAB PO SCH (07:47)
[2020-05-06] MEDS: RIVAROXABAN 10 MG TAB (XARELTO) PO SCH ×2 (07:47→20:21)
[2020-05-06] MEDS: OMEPRAZOLE 20 MG CAP PO SCH (07:47)
[2020-05-06] MEDS: LOSARTAN 25 MG TAB PO SCH (07:47)
[2020-05-06] MEDS: ASCORBIC ACID 500 MG TAB PO SCH (07:47)
[2020-05-06] MEDS: LACTOBACILLUS ACIDOPHILUS CAP (BACID) PO SCH ×3 (07:47→20:20)
[2020-05-06] MEDS: ASPIRIN 81 MG ENTERIC TAB PO SCH (07:47)
[2020-05-06] MEDS: BACLOFEN 5MG PER 1/2 TABLET PO SCH ×3 (07:48→20:20)
[2020-05-06] MEDS: DOCUSATE SODIUM 100 MG CAP PO SCH ×2 (07:48→20:21)
[2020-05-06] MEDS: MIRALAX *UNIT DOSE* 17GM PACKET PO PRN (07:51)
[2020-05-06] MEDS ORDERED: MULTIVITAMINS/MINERALS THERAP 1 TAB PO SCH (09:00)
[2020-05-06] MEDS ORDERED: OMEPRAZOLE 20 MG CAP PO SCH (09:00)
--- NOTE | 2020-05-06 13:12 | HPEPDOC ---
[facility] Medical History & Physical Date of Admission May 05, 2020 Date of Service: May 06, 2020 Attending Physician: Desiree Zhang MD History and Physical HISTORY OF PRESENT ILLNESS: Manoj Smith is a 75-year-old M admitted to [facility] from 05/01/20-05/05/20 for treatment of UTI likely 2/2 to urinary retention likely from MS, healthcare associated pneumonia, hematuria and weakness. He was evaluated by PT/OT who believed he would benefit from continued rehabilitation during the admission. He was discharged to ARU on 05/05/20 for further t reatment. I had taken care of the patient while inpatient in the hospital so I know him and his history, current treatment course very well. He is slightly concerned about his endurance for his sessions while in ARU but is very much willing to participate. He has an indwelling mijares catheter which has approx 400 mL of yellow urine. I discussed the case in detail with Dr. Blanton who has taken over primary care of patient. At the time of evaluation, patient denied any chest pain, n/v/d, fevers, chills, abdominal pain, lightheadedness, dizziness, shortness of breath. He remains on levofloxacin for an additional 2 days. PAST MEDICAL HISTORY: Severe multiple sclerosis (MS) DM type II Fatty liver Hypertensive heart disease. 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 Chronic infiltrates on CT scans of the chest going back to 06/2008. 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 Hx of recurrent UTI, previously on nitrofurantoin for the past year for prophylaxis Abdominal aortic aneurysm Gastritis Liver mass PAST SURGICAL HISTORY: Transurethral resection of the prostate (TURP) 03/2009. Colonoscopy 03/2004, as well as 2007, and most recently 05/2019. Liver biopsy 05/2019. Esophagogastroduodenoscopy (EGD) 05/2019. Left inguinal hernia repair 05/2019. Umbilical hernia repair 04/2020. Cystoscopy done 04/2019 FAMILY HISTORY: Father had hypertension. Mother had diabetes. SOCIAL HISTORY: Quit smoking many years ago. No alcohol use. He is disabled fromhis MS. He is . His is very attentive and also has very attentive family members. ALLERGIES: - ATORVASTATIN CAUSED MYALGIAS. - COPAXONE MADE HIS MS SYMPTOMS WORSE. - PROVIGIL MADE HIS MS SYMPTOMS WORSE. - PRAVASTATIN CAUSED GENERALIZED WEAKNESS. - AMANTADINE CAUSED GENERALIZED WEAKNESS. - GABAPENTIN CAUSED HIM TO PASS OUT. - AMLODIPINE CAUSED SWELLING OF HIS LEGS. CURRENT MEDICATIONS: Please see below. PHYSICAL EXAMINATION: VITAL SIGNS: Please see below GENERAL: In NAD, resting in bedside chair. HEENT: PERRLA, EOM intact, oral mucosa moist NECK: No masses, no JVD LUNGS: CTAB, no wheezing, rhonchi or rales HEART: NSR, S1S2 +, no M/R/G : mijares catheter in place ABDOMEN: Soft and nontender with no masses. BS + in 4 quad EXTREMITIES: No clubbing or cyanosis. Trace peripheral edema. Normal strength in the arms and legs. Braces in place on b/l lower ext PSYCH: Mood and affect appropriate LABORATORY DATA: Please see below IMAGING: CT of the abdomen and pelvis shows cirrhosis. He had bilateral airspace consolidation, atelectasis versus pneumonia, bladder outlet obstruction suggest ed, and urinary catheter has been placed. IMPRESSION/PLAN: Hematuria likely 2/2 to trauma s/p mijares catheter placement, on xarelto and ASA. Resolved. -Stopped xarelto, ASA 05/03/20 with improvement -H/H stable -C/w ASA, xarelto. -F/u CBC regularly UTI , Enterobacter cloacae -WBC wnl, afebrile -BCx NG x 2 sets -Day three levofloxacin (Day 4) -Per Dr. Kilpatrick, patient should be monitored off abx therapy to see if he truly needs it going forward. Normally this is done by PCP;however, this was not done. If he develops another UTI, then consider prophylaxis to be restarted HCAP -WBC wnl, afebrile -Saturating well on RA -Sputum culture growing normal silas and BCx NG at 48 hrs -Recommend 7 day treatment course despite normal silas on sputum culture, unknown how good specimen was. -C/w levofloxacin (Day 4/7) Urinary retention likely 2/2 to neurogenic bladder 2/2 MS and BPH -Discussed with Dr. Fofana (urology) who believes, since patient has been on flomax this hospitalization, it is likely that MS is causing continued retention. -C/w mijares catheter, voiding trial on 05/08/20. -C/w flomax Weakness likely 2/2 to acute infection above -PT/OT History of arterial thrombosis -D/violetta AC previously to hematuria -C/w xarelto today Diabetes -BS controlled -Sliding scale insulin coverage. -C/w metformin for now. Multiple sclerosis (MS). -PT/OT Recent umbilical hernia repair. -Surgical site looks clean DISPOSITION: Thank you kindly for the consult. If we are needed again to see, please do not hesitate to contact us at any time. Vital Signs Vital Signs Date Time Temp Pulse Resp B/P (MAP) Pulse Ox O2 Delivery O2 Flow Rate FiO2 05/06/20 07:47 120/65 05/06/20 05:55 97.8 88 18 96 Room Air Laboratory Data Labs 24H Laboratory Tests 2 05/06/20 05:06: Bedside Glucose (Misc Panel) 153H 05/06/20 06:37: Urine Color STRAW, Urine Appearance CLEAR, Urine pH 6.0, Urine Specific [place] 1.011, Urine Protein NEGATIVE, Urine Glucose (Auto)(UA) NEGATIVE, Urine Ketones (Auto) NEGATIVE, Urine Blood 3+H, Urine Nitrite NEGATIVE, Urine Bilirubin NEGATIVE, Urine Urobilinogen 0.2, Urine Leukocyte Esterase (Auto) TRACEH, Urine WBC (Auto) 5H, Urine RBC (Auto) TNTCH, Urine Hyaline Casts (Auto) 0, Urine Bacteria (Auto) NEGATIVE, Urine Squamous Epithelial Cells 0, Urine Sperm (Auto) Home Medications Scheduled Alpha Lipoic Acid (Alpha Lipoic Acid) 200 Mg Tab, 200 MG PO BID Ascorbic Acid (Vitamin C) 500 Mg Cap, 500 MG PO DAILY Calcium Carbonate (Calcium) 500 Mg Tablet, 500 MG PO DAILY Cholecalciferol (Vitamin D3) (Vitamin D3) 1,000 Unit Tablet, 2,000 UNITS PO QHS Docusate Sodium (Docusate Sodium) 100 Mg Capsule, 200 MG PO BID L.acidoph/L.bulg/B.bif/S.therm (Naomi-Bid Caplet) 1 Each Tablet, 1 TAB PO TID Levofloxacin (Levofloxacin) 500 Mg Tablet, 500 MG PO DAILY@06 Losartan Potassium (Losartan Potassium) 25 Mg Tablet, 25 MG PO DAILY Metformin HCl (Metformin HCl ER) 500 Mg Tab.er.24h, 500 MG PO QHS Omeprazole (Omeprazole) 20 Mg Capsule.dr, 20 MG PO DAILY Rivaroxaban (Xarelto) 2.5 Mg Tablet, 2.5 MG PO BID Tamsulosin HCl (Flomax) 0.4 Mg Capsule, 0.4 MG PO QHS Scheduled PRN Ammonium Lactate (Ammonium Lactate) 12% Lotion, 1 DOSE TOP DAILY PRN for DRY SKIN APPLIES TO AREAS OF DRY SKIN Baclofen (Baclofen) 10 Mg Tablet, 5 MG PO TID PRN for MUSCLE SPASMS Fluticasone Propionate (Fluticasone Propionate) 16 Gm [place].susp, 2 SPRAY NARES DAILY PRN for CONGESTION Polyethylene Glycol 3350 (Miralax) 119 Gm Powder, 17 GM PO BID PRN for CONSTIPATION dilute in 8 ounces of water or juice Allergies Coded Allergies: gabapentin (Verified Adverse Reaction, Intermediate, elevates MS symptoms, 04/25/20) modafinil (Verified Adverse Reaction, Intermediate, elevate MS symptoms, 04/25/20) Swgznyr-Ikf-Qoy Reductase Inhibitor (Verified Adverse Reaction, Mild, "PASSES OUT", 04/25/20) glatiramer (copolymer 1) (Verified Adverse Reaction, Mild, weakness, 04/25/20) A-FIB/CHADSVASC A-FIB History Current/History of A-Fib/PAF?: No Current PO Anticoag Therapy: Yes Age/Risk Factor Scoring CHADSVASC: CHADSVASC Response (Comments) Value Age Risk Factor Age >/= 75 years old 2 Gender Risk Factor Male 0 Hx of CHF No 0 Hx of HTN Yes 1 Hx of Stroke/TIA/or VTE No 0 Hx of Diabetes Yes 1 Hx of Vascular Disease No 0 Total 4 Treatment Treatment ordered: RivaroxDesiree Tate MD May 06, 2020 13:12
[2020-05-06 14:00] VITALS: BP 132/74
[2020-05-06 20:00] VITALS: BP 140/79
[2020-05-06] MEDS: VITAMIN D 1,000 INTERNATIONAL UNITS TABLET PO SCH (20:21)
[2020-05-07] MEDS: IPRATROPIUM 0.5MG/ALBUTEROL 2.5MG INH SOL UD 3ML (DUONEB) NEB SCH ×4 (02:31→19:31)
[2020-05-07] MEDS: LevoFLOXacin 500 MG TABLET PO SCH (05:51)
[2020-05-07 06:06] LABS: BASO # 0.1 10^3/uL (0.0-0.2); BASO % 0.7 % (0.0-1.0); EOS # 0.4 10^3/uL (0.0-0.5); EOS % 5.5 % (0.0-3.0); HEMATOCRIT 38.3 % (42.0-52.0); HEMOGLOBIN 12.5 g/dl (13.5-17.5); LYMPH # 1.7 10^3/uL (1.5-5.0); LYMPH % 22.3 % (24.0-44.0); MEAN CORPUSCULAR HGB CONC 32.6 g/dl (32.0-36.5); MEAN CORPUSCULAR VOLUME 91.8 fl (80.0-96.0); MONO # 0.6 10^3/uL (0.0-0.8); NEUTROPHILS # 4.7 10^3/uL (1.5-8.5); NEUTROPHILS % 61.7 % (36.0-66.0); PLATELET COUNT, AUTOMATED 262 10^3/uL (150-450); RED BLOOD COUNT 4.17 10^6/uL (4.30-6.10); WHITE BLOOD COUNT 7.6 10^3/uL (4.0-10.0)
[2020-05-07 06:28] VITALS: BP 112/57
[2020-05-07] MEDS: MIRALAX *UNIT DOSE* 17GM PACKET PO PRN (09:00)
[2020-05-07] MEDS: MULTIVITAMINS/MINERALS THERAP 1 TAB PO SCH (09:01)
[2020-05-07] MEDS: DOCUSATE SODIUM 100 MG CAP PO SCH ×2 (09:01→20:44)
[2020-05-07] MEDS: LACTOBACILLUS ACIDOPHILUS CAP (BACID) PO SCH ×3 (09:01→20:44)
[2020-05-07] MEDS: LOSARTAN 25 MG TAB PO SCH (09:01)
[2020-05-07] MEDS: BACLOFEN 5MG PER 1/2 TABLET PO SCH ×3 (09:01→20:44)
[2020-05-07] MEDS: OMEPRAZOLE 20 MG CAP PO SCH (09:01)
[2020-05-07] MEDS: ASPIRIN 81 MG ENTERIC TAB PO SCH (09:01)
[2020-05-07] MEDS: ASCORBIC ACID 500 MG TAB PO SCH (09:02)
[2020-05-07] MEDS: RIVAROXABAN 10 MG TAB (XARELTO) PO SCH (09:02)
[2020-05-07 14:00] VITALS: BP 132/74
[2020-05-07 20:15] VITALS: BP 137/64
[2020-05-07] MEDS: VITAMIN D 1,000 INTERNATIONAL UNITS TABLET PO SCH (20:44)
[2020-05-08] MEDS: IPRATROPIUM 0.5MG/ALBUTEROL 2.5MG INH SOL UD 3ML (DUONEB) NEB SCH ×4 (02:16→20:30)
[2020-05-08] MEDS: LevoFLOXacin 500 MG TABLET PO SCH (05:46)
[2020-05-08 05:54] VITALS: BP 129/62
[2020-05-08 07:30] VITALS: BP 129/81
[2020-05-08] MEDS: BACLOFEN 5MG PER 1/2 TABLET PO SCH ×3 (09:31→20:07)
[2020-05-08] MEDS: LACTOBACILLUS ACIDOPHILUS CAP (BACID) PO SCH ×3 (09:31→20:07)
[2020-05-08] MEDS: LOSARTAN 25 MG TAB PO SCH (09:32)
[2020-05-08] MEDS: MIRALAX *UNIT DOSE* 17GM PACKET PO PRN (09:32)
[2020-05-08] MEDS: DOCUSATE SODIUM 100 MG CAP PO SCH ×2 (09:32→20:07)
[2020-05-08] MEDS: OMEPRAZOLE 20 MG CAP PO SCH (09:32)
[2020-05-08] MEDS: ASCORBIC ACID 500 MG TAB PO SCH (09:32)
[2020-05-08] MEDS: TAMSULOSIN 0.4 MG CAP PO SCH (09:32)
[2020-05-08] MEDS: MULTIVITAMINS/MINERALS THERAP 1 TAB PO SCH (09:32)
--- NOTE | 2020-05-08 12:39 | IPNPDOC ---
PM&R Progress Note DATE OF SERVICE: May 08, 2020 [employer] Progress Note DATE OF ADMISSION: May 05, 2020 at 14:00 INPATIENT REHABILITATION ADMISSION DAY: # 3 CHIEF COMPLAINT: Generalized weakness, decreased coordination, abdominal distention, urinary retention requiring Urban drainage SUBJECTIVE: Mr. Smith did well over the weekend initiating his therapy program. Evidently, there was an episode of hematuria, xarelto, aspirin was stopped. He does not have increased pain, there is some concern noted by therapy on slight increase of weakness, which may reflect prior history of a reported meningioma and/or his long-standing MS. REVIEW OF SYSTEMS: The following is a completed review of systems and has been reviewed. Review of systems otherwise unremarkable. PAIN: Patient self reports no pain. EYES: No recent vision changes. EARS, NOSE, & THROAT: No throat pain, or dysphagia, or rhinorrhea. CARDIOVASCULAR: Denies chest pain or palpitations. PULMONARY: Denies shortness of breath. GASTROINTESTINAL: Denies constipation/diarrhea. Healing surgical site GENITOURINARY: . Urban dependent MUSCULOSKELETAL: No new complaints. NEUROLOGICAL:. Long-standing MS. Generalized lower extremity greater than upper extremity, left greater than right sided weakness HEMATOLOGICAL: Status post hematuria, stable . SKIN: . Intact PSYCHIATRIC: Unremarkable. All other review of systems found to be negative. PHYSICAL EXAMINATION: VITAL SIGNS: Please see below. GENERAL: Pleasant and cooperative. No acute distress. Alert and oriented times three. Slow, appropriate speech HEENT: Midright assists Extraocular movements intact with some bobbing nystagmus on testing. Clear conjunctiva, no adenopathy or thyromegaly. Full cervical range of motion without tenderness or spasm. CARDIOVASCULAR: Regular rate and rhythm. No murmurs, rubs, or gallops. LUNGS: Clear to auscultation bilaterally. No wheezes. No rhonchi. ABDOMEN: Soft, mildly distended. Positive bowel sounds. Normal active bowel sounds, healing port scars bilateral upper quadrants and lower quadrant. : Susannah urine draining with good output NEUROLOGICAL: Alert and oriented times three. Cranial nerves II through XII intact. Sensation intact. EXTREMITIES: Right 5 /5 Left 4/5 coloring checker, elbow flexion, elbow extension, deltoids, Right 4/5 left 3+/5 knee extension slight distal edema SKIN: intact, no sacral redness or tenderness . LABORATORY DATA: Please see below. IMAGING:Imaging documentation personally reviewed by record. FUNCTIONAL STATUS: Pt reports primary limitation being dec activity tolerance and current indwelling catheter. Pt reports using manual W/C, electric scooter, and/or RW as needed within his apartment and/or the community. Pt reports amb short distances first thing in the morning without his AFO's and will benefit from practice as able without AFO or shoes. Working on sit to stand with contact-guard assistance, ambulation 20 feet to test safety without balance. He does this at home to get to the bathroom. He has decreased foot clearance on the left when fatigued worsens are as frequent rest breaks. GOALS: Maintaining medical stability, orthodoxy of prior level of functional mobility using assistive device, safe transfers and independent performance of activities of daily living. ASSESSMENT: Status post laparoscopic repair of strangulated umbilical hernia 04/28/2020 MS with 30 year disability predominantly left radha-and bilateral lower extremity paresis with coordination, balance and some visual deficits Neurogenic bladder. Hematuria with prior cystoscopy 2018 noted for atypical cells in the bladder reported negative cytology on subsequent evaluation UTI. Pneumonia Type 2 diabetes, well controlled. Fatty liver. Hypertension. Hypertensive heart disease. Obstructive sleep apnea. Vitamin D deficiency. Hemochromatosis. Sinus tachycardia. 75 year-old gentleman with 30 year history of multiple sclerosis who presented status post laparoscopic repair of umbilical hernia 04/28/2020 with complications of UTI, possible pneumonia, profound hematuria related to Urban placement in presence of anticoagulation for prior history of arterial thrombosis. Hematuria recurred over weekend, abating now off anticoagulation. He is currently medically stable and has begin comprehensive rehabilitation. We appreciate hospitalist service consult for close medical attention and coordination of his complex chronic care needs. His autoimmune condition has probably flared as a result of the recent series of events resulting in significant deterioration in function, increased weakness, less coordination and increased risk of falls, requiring intervention of physical therapy, occupational therapy, rehabilitative nursing and physiatry care coordination. PLAN: GI Status post Recent laparoscopic umbilical hernia repair 04/28/2020, prior left inguinal hernia repair May 2019, elevated LFTs, prior extensive workup with multiple diagnostic procedures noted for cirrhosis secondary to fatty liver, liver biopsy 05/25/2019 negative for malignancy with persisting mass. History of prior gastritis. -Surgical site looks clean, moving bowels. No significant discomfort. Well provide appropriate bowel management program. There was some mention in the record of possible history of hemochromatosis and note was a slight elevation of CEA for last May. This may need further follow-up as an outpatient. patient is status post recent episode of significant hematuria evidently considered posttraumatic combination with Enterobacter urinary tract infection. Xarelto again held, along with aspirin. Creatinine stable at 1.27. He is covered with levofloxacin after several day course of ceftaroline, soon to DC. Dr. Boss, infectious disease specialist, has treated him in the past and he was scheduled to see Dr. Fofana, urologist , as an outpatient today for further recommendations regarding bladder management. Evidently he had been managed for some time with nitrofurantoin suppression that was interrupted, leakage with Dr. Zhang indicates colonization makeup had changed and perhaps a resistance emerging.. Well proceed with transitioning to our bladder protocol today with crossclamping and including bladder training prior to discontinuing the Urban closely following post void residuals and sensation, capacity to void, need for adjustment in various medications and intermittent catheterization if indicated. It will be preferable to avoid repeated trauma if possible. It is possible long- term suppression may be appropriate due to neurogenic bladder that may be worsening of his MS progressing possibly in combination with BPH. Well see how he does and discuss later this week with the various provider team. Hematology-initial leukocytosis has improved with antibiotic interventions, hemoglobin, hematocrit stable 12.5/38.3. Circulation- History of prior arterial thrombosis, improved edema according to nursing, who has previously cared for him. Generally on long-term anticoagulation, which had to be held due to hematuria related to incidental trauma related to Urban placement. Continue KRISTINA lion, On losartan, will monitor and provide coverage for episodic spikes. Respiratory- history of hospitalization for suspected pneumonia earlier this month and chronic infiltrates noted on chest x-ray. Thus far, he is maintaining good oxygenation covered with current antibiotic approaches. Continue respiratory therapy treatments as indicated. Neuro- Patient had generalized worsening of his paraparesis, probably effect of underlying long-standing MS and aggravation or flare related to infectious process. Well continue to monitor, apparently intolerant of a variety of MS medications, currently with an infection, steroids not indicated, but might be considered should the weakness continued to worsen once infection is considered well treated. Patient currently denies pain. Diabetes -BS well controlled, FBS low 130s , will DC Accu-Cheks 1. Rehab- PT/OT advance gait and ADLs, strengthen/stretch/maintain ROM all 4limbs, energy conservation, family training TIME SPENT: Chart Review, examination and documentation 35 minutes. Allergies Coded Allergies: gabapentin (Verified Adverse Reaction, Intermediate, elevates MS symptoms, 04/25/20) modafinil (Verified Adverse Reaction, Intermediate, elevate MS symptoms, 04/25/20) Cgfzkua-Aku-Kyt Reductase Inhibitor (Verified Adverse Reaction, Mild, "PASSES OUT", 04/25/20) glatiramer (copolymer 1) (Verified Adverse Reaction, Mild, weakness, 04/25/20) Vital Signs Vital Signs Date Time Temp Pulse Resp B/P (MAP) Pulse Ox O2 Delivery O2 Flow Rate FiO2 05/08/20 09:32 129/81 05/08/20 05:54 97.8 89 18 98 Room Air Laboratory Data Labs 24H Laboratory Tests 2 05/08/20 06:05: Bedside Glucose (Misc Panel) 137H Current Medications Current Medications Current Medications Medications (Trade) Dose Ordered Sig/Avelino Route PRN Reason Start Time Stop Time Status Last Admin Dose Admin Acetaminophen (Tylenol Tab) 650 mg Q4HP PRN PO MILD PAIN (PS 1-4) 05/05/20 12:30 05/05/20 14:44 DC Acetaminophen (Tylenol Tab) 650 mg Q4HP PRN PO MILD PAIN (PS 1-4) 05/05/20 12:30 Albuterol/ Ipratropium (Duoneb (Ipr 0.5mg/Alb 2.5mg)) 3 ml RQ6H NEB 05/05/20 14:00 05/08/20 06:09 Ascorbic Acid (Vitamin C) 500 mg DAILY PO 05/06/20 09:00 05/08/20 09:32 Aspirin (Ecotrin) 81 mg DAILY PO 05/06/20 09:00 05/07/20 11:05 DC 05/07/20 09:01 Baclofen (Lioresal) 5 mg TID PO 05/05/20 16:00 05/08/20 09:31 Calcium Carbonate (Tums) 500 mg DAILY PRN PO INDIGESTION 05/05/20 12:30 Docusate Sodium (Colace) 200 mg BID PO 05/05/20 21:00 05/08/20 09:32 Fluticasone Propionate (Flonase 0.05% Nasal [place]) 2 spray DAILY PRN NARES CONGESTION 05/05/20 12:30 Home Med (Med Rec Complete!) ASDIRECTED XX 05/05/20 18:45 05/05/20 18:36 DC Hydralazine HCl (Apresoline) 10 mg DAILYPRN PRN PO elevated S BP >180 05/05/20 17:15 Lactobacillus Acidophilus (Bacid) 1 ea TID PO 05/05/20 16:00 05/08/20 09:31 Levofloxacin (Levaquin) 500 mg DAILY@06 PO 05/06/20 06:00 05/08/20 05:46 Losartan Potassium (Cozaar) 25 mg DAILY PO 05/06/20 09:00 05/08/20 09:32 Multivitamins (Theragram-M) 1 tab DAILY PO 05/06/20 09:00 05/05/20 14:44 DC Multivitamins (Theragram-M) 1 tab DAILY PO 05/06/20 09:00 05/08/20 09:32 Omeprazole (PriLOSEC) 20 mg DAILY PO 05/06/20 09:00 05/05/20 14:44 DC Omeprazole (PriLOSEC) 20 mg DAILY PO 05/06/20 09:00 05/08/20 09:32 Polyethylene Glycol (Miralax) 1 pkt DAILY PRN PO CONSTIPATION 05/05/20 12:30 05/05/20 14:43 DC Polyethylene Glycol (Miralax) 1 pkt DAILY PRN PO CONSTIPATION 05/05/20 12:30 05/08/20 09:32 Polyethylene Glycol (Miralax) 1 pkt DAILYPRN PRN PO CONSTIPATION 05/05/20 12:30 05/05/20 14:44 DC Rivaroxaban (Xarelto) 2.5 mg BID PO 05/05/20 21:00 05/05/20 14:45 DC Rivaroxaban (Xarelto) 2.5 mg BID PO 05/05/20 21:00 05/07/20 17:08 DC 05/07/20 09:02 Tamsulosin HCl (Flomax) 0.4 mg DAILY PO 05/08/20 09:00 05/08/20 09:32 Vitamin D (Vitamin D) 2,000 units QHS PO 05/05/20 21:00 05/07/20 20:44 JING AKHTAR MD May 08, 2020 12:39
[2020-05-08 14:00] VITALS: BP 139/81
[2020-05-08] MEDS: VITAMIN D 1,000 INTERNATIONAL UNITS TABLET PO SCH (20:07)
[2020-05-08 20:15] VITALS: BP 136/77
[2020-05-09] MEDS: IPRATROPIUM 0.5MG/ALBUTEROL 2.5MG INH SOL UD 3ML (DUONEB) NEB SCH ×3 (02:00→20:28)
[2020-05-09] MEDS: LevoFLOXacin 500 MG TABLET PO SCH (05:25)
[2020-05-09 05:44] VITALS: BP 116/72
[2020-05-09 07:30] VITALS: BP 140/81
[2020-05-09] MEDS ORDERED: ALBUTEROL SULFATE 2.5 MG/0.5 ML INH NEB SOLN NEB PRN (07:45)
[2020-05-09] MEDS: BACLOFEN 5MG PER 1/2 TABLET PO SCH ×3 (09:52→20:33)
[2020-05-09] MEDS: LACTOBACILLUS ACIDOPHILUS CAP (BACID) PO SCH ×3 (09:52→20:33)
[2020-05-09] MEDS: DOCUSATE SODIUM 100 MG CAP PO SCH ×2 (09:52→20:33)
[2020-05-09] MEDS: ASCORBIC ACID 500 MG TAB PO SCH (09:53)
[2020-05-09] MEDS: OMEPRAZOLE 20 MG CAP PO SCH (09:53)
[2020-05-09] MEDS: TAMSULOSIN 0.4 MG CAP PO SCH (09:53)
[2020-05-09] MEDS: MULTIVITAMINS/MINERALS THERAP 1 TAB PO SCH (09:53)
[2020-05-09] MEDS: LOSARTAN 25 MG TAB PO SCH (09:54)
[2020-05-09] MEDS: MIRALAX *UNIT DOSE* 17GM PACKET PO PRN (10:07)
--- NOTE | 2020-05-09 11:25 | IPNPDOC ---
PM&R Progress Note DATE OF SERVICE: May 09, 2020 [employer] Progress Note INPATIENT REHABILITATION ADMISSION DAY: # 3 CHIEF COMPLAINT: Generalized weakness, decreased coordination, abdominal distention, urinary retention requiring Mijares drainage SUBJECTIVE: Mr. Smith did well over the weekend initiating his therapy program. Evidently, over the weekend,there was an episode of hematuria, xarelto, aspirin was stopped. He does not have increased pain, there is some concern noted by therapy on slight increase of weakness, which may reflect prior history of a reported meningioma and/or his long-standing MS. Patient does not seem to feel much difference this morning. REVIEW OF SYSTEMS: The following is a completed review of systems and has been reviewed. Review of systems otherwise unremarkable. PAIN: Patient self reports no pain. EYES: No recent vision changes. EARS, NOSE, & THROAT: No throat pain, or dysphagia, or rhinorrhea. CARDIOVASCULAR: Denies chest pain or palpitations. PULMONARY: Denies shortness of breath. GASTROINTESTINAL: Denies constipation/diarrhea. Healing surgical site GENITOURINARY: . Mijares dependent MUSCULOSKELETAL: No new complaints. NEUROLOGICAL:. Long-standing MS. Generalized lower extremity greater than upper extremity, left greater than right sided weakness HEMATOLOGICAL: Status post hematuria, stable . SKIN: . Intact PSYCHIATRIC: Unremarkable. All other review of systems found to be negative. PHYSICAL EXAMINATION: VITAL SIGNS: Please see below. GENERAL: Pleasant and cooperative. No acute distress. Alert and oriented times three. Slow, appropriate speech HEENT: Midright assists Extraocular movements intact with some bobbing nystagmus on testing. Clear conjunctiva, no adenopathy or thyromegaly. Full cervical range of motion without tenderness or spasm. CARDIOVASCULAR: Regular rate and rhythm. No murmurs, rubs, or gallops. LUNGS: Clear to auscultation bilaterally. No wheezes. No rhonchi. ABDOMEN: Soft, mildly distended. Positive bowel sounds. Normal active bowel sounds, healing port scars bilateral upper quadrants and lower quadrant. : Susannah urine draining with good output. Nursing notes 3-400 cc volumes, when unclamp with 50 cc or less residuals, no discomfort, no further hematuria. NEUROLOGICAL: Alert and oriented times three. Cranial nerves II through XII intact. Sensation intact. EXTREMITIES: Right 5 /5 Left 4/5 [address] usher, elbow flexion, elbow extension, deltoids, Right 4/5 left 3+/5 knee extension no peripheral edema or calf tenderness LABORATORY DATA: Please see below. IMAGING:Imaging documentation personally reviewed by record. FUNCTIONAL STATUS: Patient discussed in Team Meeting. Working on sit to stand with contact-guard assistance, ambulation 20 feet to test safety without balance. He does this at home to get to the bathroom. He has decreased foot clearance when fatigued worse ns and requires frequent rest breaks. GOALS: Maintaining medical stability, gnosticist of prior level of functional mobility using assistive device, safe transfers and independent performance of activities of daily living. ASSESSMENT: Status post laparoscopic repair of strangulated umbilical hernia 04/28/2020 MS with 30 year disability predominantly left radha-and bilateral lower extremity paresis with coordination, balance and some visual deficits Neurogenic bladder. Hematuria with prior cystoscopy 2018 noted for atypical cells in the bladder reported negative cytology on subsequent evaluation UTI. Pneumonia Type 2 diabetes, well controlled. Fatty liver. Hypertension. Hypertensive heart disease. Obstructive sleep apnea. Vitamin D deficiency. Hemochromatosis. Sinus tachycardia. 75 year-old gentleman with 30 year history of multiple sclerosis who presented status post laparoscopic repair of umbilical hernia 04/28/2020 with complications of UTI, possible pneumonia, profound hematuria related to Mijares placement in presence of anticoagulation for prior history of arterial thrombosis. Hematuria recurred over weekend, abating now off anticoagulation. He is currently medically stable and has begin comprehensive rehabilitation. We appreciate hospitalist service consult for close medical attention and coordination of his complex chronic care needs. His autoimmune condition has probably flared as a result of the recent series of events resulting in significant deterioration in function, increased weakness, less coordination and increased risk of falls, requiring intervention of physical therapy, occupational therapy, rehabilitative nursing and physiatry care coordination. PLAN: GI Status post Recent laparoscopic umbilical hernia repair 04/28/2020, prior left inguinal hernia repair May 2019, elevated LFTs, prior extensive workup with multiple diagnostic procedures noted for cirrhosis secondary to fatty liver, liver biopsy 05/25/2019 negative for malignancy with persisting mass. History of prior gastritis. -Surgical site looks clean, moving bowels. No significant discomfort. Well provide appropriate bowel management program. There was some mention in the record of possible history of hemochromatosis and note was a slight elevation of CEA for last May. This may need further follow-up as an outpatient. patient is status post recent episode of significant hematuria evidently conside red posttraumatic combination with Enterobacter urinary tract infection. Xarelto again held, along with aspirin. Creatinine stable . He is covered with levofloxacin after several day course of ceftaroline, soon to DC. Dr. Boss, infectious disease specialist, has treated him in the past and he was scheduled to see Dr. Fofana, urologist , as an outpatient for further recommendations regarding bladder management. Evidently he had been managed for some time with nitrofurantoin suppression, possibly having converted to more resistant organisms from community colonization, will be reassessed.. Well proceed with transitioning to our bladder protocol today with crossclamping and including bladder training prior to discontinuing the mijares, closely following post void residuals and sensation, capacity to void, need for adjustment in various medications and intermittent catheterization if indicated. It will be preferable to avoid repeated trauma if possible. It is possible long-term suppression may be appropriate due to neurogenic bladder that may be worsening of his MS progressing possibly in combination with BPH. We will look at status of UA as he progresses. Well see how he does and discuss later this week with the various provider team. Hematology-initial leukocytosis has improved with antibiotic interventions, hemoglobin, hematocrit stable 12.5/38.3. Circulation- History of prior arterial thrombosis, improved edema according to nursing, who has previously cared for him. Generally on long-term anticoagulation, which had to be held due to hematuria related to incidental trauma related to Mijares placement. Continue KRISTINA lion, On losartan, will monitor and provide coverage for episodic spikes. Respiratory- history of hospitalization for suspected pneumonia earlier this month and chronic infiltrates noted on chest x-ray. Thus far, he is maintaining good oxygenation covered with current antibiotic approaches. Continue respiratory therapy treatments as indicated. Neuro- Patient had generalized worsening of his paraparesis, probably effect of underlying long-standing MS and aggravation or flare related to infectious process. Well continue to monitor, apparently intolerant of a variety of MS medications, currently with an infection, steroids not indicated, but might be considered should the weakness continued to worsen once infection is considered well treated. Patient currently denies pain. Diabetes -BS well controlled, FBS low 130s , will DC Accu-Cheks 1. Rehab- PT/OT advance gait and ADLs, strengthen/stretch/maintain ROM all 4limbs, energy conservation, family training TIME SPENT: Chart Review, examination and documentation 35 minutes. Allergies Coded Allergies: gabapentin (Verified Adverse Reaction, Intermediate, elevates MS symptoms, 04/25/20) modafinil (Verified Adverse Reaction, Intermediate, elevate MS symptoms, 04/25/20) Lfdnjue-Nlg-Izc Reductase Inhibitor (Verified Adverse Reaction, Mild, "PASSES OUT", 04/25/20) glatiramer (copolymer 1) (Verified Adverse Reaction, Mild, weakness, 04/25/20) Vital Signs Vital Signs Date Time Temp Pulse Resp B/P (MAP) Pulse Ox O2 Delivery O2 Flow Rate FiO2 05/09/20 09:54 140/81 05/09/20 05:44 97.5 88 18 97 Room Air Laboratory Data Labs 24H Laboratory Tests 2 05/09/20 05:33: Bedside Glucose (Misc Panel) 137H Current Medications Current Medications Current Medications Medications (Trade) Dose Ordered Sig/Avelino Route PRN Reason Start Time Stop Time Status Last Admin Dose Admin Acetaminophen (Tylenol Tab) 650 mg Q4HP PRN PO MILD PAIN (PS 1-4) 05/05/20 12:30 05/05/20 14:44 DC Acetaminophen (Tylenol Tab) 650 mg Q4HP PRN PO MILD PAIN (PS 1-4) 05/05/20 12:30 Albuterol Sulfate (Proventil Neb) 2.5 mg Q6HP PRN NEB SOB/WHEEZING 05/09/20 07:45 Albuterol/ Ipratropium (Duoneb (Ipr 0.5mg/Alb 2.5mg)) 3 ml RBID NEB 05/09/20 20:00 Albuterol/ Ipratropium (Duoneb (Ipr 0.5mg/Alb 2.5mg)) 3 ml RQ6H NEB 05/05/20 14:00 05/09/20 07:46 DC 05/09/20 07:41 Ascorbic Acid (Vitamin C) 500 mg DAILY PO 05/06/20 09:00 05/09/20 09:53 Aspirin (Ecotrin) 81 mg DAILY PO 05/06/20 09:00 05/07/20 11:05 DC 05/07/20 09:01 Baclofen (Lioresal) 5 mg TID PO 05/05/20 16:00 05/09/20 09:52 Calcium Carbonate (Tums) 500 mg DAILY PRN PO INDIGESTION 05/05/20 12:30 Docusate Sodium (Colace) 200 mg BID PO 05/05/20 21:00 05/09/20 09:52 Fluticasone Propionate (Flonase 0.05% Nasal [place]) 2 spray DAILY PRN NARES CONGESTION 05/05/20 12:30 Home Med (Med Rec Complete!) ASDIRECTED XX 05/05/20 18:45 05/05/20 18:36 DC Hydralazine HCl (Apresoline) 10 mg DAILYPRN PRN PO elevated S BP >180 05/05/20 17:15 Lactobacillus Acidophilus (Bacid) 1 ea TID PO 05/05/20 16:00 05/09/20 09:52 Levofloxacin (Levaquin) 500 mg DAILY@06 PO 05/06/20 06:00 05/09/20 05:25 Losartan Potassium (Cozaar) 25 mg DAILY PO 05/06/20 09:00 05/09/20 09:54 Multivitamins (Theragram-M) 1 tab DAILY PO 05/06/20 09:00 05/05/20 14:44 DC Multivitamins (Theragram-M) 1 tab DAILY PO 05/06/20 09:00 05/09/20 09:53 Omeprazole (PriLOSEC) 20 mg DAILY PO 05/06/20 09:00 05/05/20 14:44 DC Omeprazole (PriLOSEC) 20 mg DAILY PO 05/06/20 09:00 05/09/20 09:53 Polyethylene Glycol (Miralax) 1 pkt DAILY PRN PO CONSTIPATION 05/05/20 12:30 05/05/20 14:43 DC Polyethylene Glycol (Miralax) 1 pkt DAILY PRN PO CONSTIPATION 05/05/20 12:30 05/09/20 10:07 Polyethylene Glycol (Miralax) 1 pkt DAILYPRN PRN PO CONSTIPATION 05/05/20 12:30 05/05/20 14:44 DC Rivaroxaban (Xarelto) 2.5 mg BID PO 05/05/20 21:00 05/05/20 14:45 DC Rivaroxaban (Xarelto) 2.5 mg BID PO 05/05/20 21:00 05/07/20 17:08 DC 05/07/20 09:02 Tamsulosin HCl (Flomax) 0.4 mg DAILY PO 05/08/20 09:00 05/09/20 09:53 Vitamin D (Vitamin D) 2,000 units [facility] PO 05/05/20 21:00 05/08/20 20:07 JING AKHTAR MD May 09, 2020 11:25
[2020-05-09] MEDS: PHENAZOPYRIDINE 100 MG TAB PO SCH ×2 (13:04→20:34)
[2020-05-09 14:00] VITALS: BP 140/65
[2020-05-09 20:00] VITALS: BP 150/77
[2020-05-09] MEDS: VITAMIN D 1,000 INTERNATIONAL UNITS TABLET PO SCH (20:33)
[2020-05-10 06:00] VITALS: BP 102/58
[2020-05-10] MEDS: LevoFLOXacin 500 MG TABLET PO SCH (06:13)
[2020-05-10] MEDS: IPRATROPIUM 0.5MG/ALBUTEROL 2.5MG INH SOL UD 3ML (DUONEB) NEB SCH ×2 (07:18→19:33)
[2020-05-10] MEDS: TAMSULOSIN 0.4 MG CAP PO SCH ×2 (08:52→20:46)
[2020-05-10] MEDS: LACTOBACILLUS ACIDOPHILUS CAP (BACID) PO SCH ×3 (08:52→20:46)
[2020-05-10] MEDS: DOCUSATE SODIUM 100 MG CAP PO SCH ×2 (08:52→20:45)
[2020-05-10] MEDS: ASCORBIC ACID 500 MG TAB PO SCH (08:52)
[2020-05-10] MEDS: BACLOFEN 5MG PER 1/2 TABLET PO SCH ×3 (08:52→20:45)
[2020-05-10] MEDS: OMEPRAZOLE 20 MG CAP PO SCH (08:52)
[2020-05-10] MEDS: MULTIVITAMINS/MINERALS THERAP 1 TAB PO SCH (08:52)
[2020-05-10] MEDS: PHENAZOPYRIDINE 100 MG TAB PO SCH ×2 (08:52→20:46)
[2020-05-10] MEDS: LOSARTAN 25 MG TAB PO SCH (08:55)
[2020-05-10] MEDS: MIRALAX *UNIT DOSE* 17GM PACKET PO PRN (09:01)
--- NOTE | 2020-05-10 11:10 | IPNPDOC ---
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 Smith did well over the weekend initiating his therapy program. Evidently, over the weekend,there was an episode of hematuria, xarelto, aspirin was stopped. He did well in therapy and this morning ambulated from his room to the therapy gym. Overall safety awareness is improving, require some cueing for consistency. Unfortunately, bladder training is proceeding with some difficulty, he is having challenges with hesitation, incomplete emptying or not being able to initiate a void. There has been no further briana hematuria. We'll continue to see if the Flomax and Pyridium and timed attempted voids bring better results today and will request Dr. Fofana's input regarding prostate issues or other pathology that may be further impacting the situation. REVIEW OF SYSTEMS: The following is a completed review of systems and has been reviewed. Review of systems otherwise unremarkable. PAIN: Patient self reports no pain. EYES: No recent vision changes. EARS, NOSE, & THROAT: No throat pain, or dysphagia, or rhinorrhea. CARDIOVASCULAR: Denies chest pain or palpitations. PULMONARY: Denies shortness of breath. GASTROINTESTINAL: Denies constipation/diarrhea. Healing surgical site GENITOURINARY: . Hesitancy and incomplete, history noted for abnormal cystoscopy and some type of bladder wall lesion, reportedly non malignant MUSCULOSKELETAL: No new complaints. NEUROLOGICAL:. Long-standing MS. Generalized lower extremity greater than upper extremity, left greater than right sided weakness HEMATOLOGICAL: Status post hematuria, stable . SKIN: . Intact PSYCHIATRIC: Unremarkable. All other review of systems found to be negative. PHYSICAL EXAMINATION: VITAL SIGNS: Please see below. GENERAL: Pleasant and cooperative. No acute distress. Alert and oriented times three. Slow, appropriate speech HEENT: Midright assists Extraocular movements intact with some bobbing nystagmus on testing. Clear conjunctiva, no adenopathy or thyromegaly. Full cervical range of motion without tenderness or spasm. CARDIOVASCULAR: Regular rate and rhythm. No murmurs, rubs, or gallops. LUNGS: Clear to auscultation bilaterally. No wheezes. No rhonchi. ABDOMEN: Soft, mildly distended. Positive bowel sounds. Normal active bowel sounds, nontender. : Nursing notes cath volumes 300-700 q 6 hr NEUROLOGICAL: Alert and oriented times three. Cranial nerves II through XII intact. Sensation intact. 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 FUNCTIONAL STATUS: Working on sit to stand with contact-guard assistance, ambulated from room to therapy gym, doing better with foot placement, using AFOS. They are also trying short distance ambulation using walker without AFO to test safety and balance. He does this at home to get to the bathroom. He has decreased foot clearance when fatigued, worsens and requires frequent rest breaks. GOALS: Maintaining medical stability, uatsdin of prior level of functional mobility using assistive device, safe transfers and independent performance of activities of daily living. ASSESSMENT: Status post laparoscopic repair of strangulated umbilical hernia 04/28/2020 MS with 30 year disability predominantly left radha-and bilateral lower extremity paresis with coordination, balance and some visual deficits Neurogenic bladder. Hematuria with prior cystoscopy 2018 noted for atypical cells in the bladder reported negative cytology on subsequent evaluation UTI. Pneumonia Type 2 diabetes, well controlled. Fatty liver. Hypertension. Hypertensive heart disease. Obstructive sleep apnea. Vitamin D deficiency. Hemochromatosis. Sinus tachycardia. 75 year-old gentleman with 30 year history of multiple sclerosis who presented status post laparoscopic repair of umbilical hernia 04/28/2020 with complic ations of UTI, possible pneumonia, profound hematuria related to Mijares placement in presence of anticoagulation for prior history of arterial thrombosis. Hematuria recurred over weekend, abating now off anticoagulation. Levaquin ended. He is currently medically stable and has begin comprehensive rehabilitation. We appreciate hospitalist service consult for close medical attention and coordination of his complex chronic care needs. His autoimmune condition has probably flared as a result of the recent series of events resulting in significant deterioration in function, increased weakness, less coordination and increased risk of falls, requiring intervention of physical therapy, occupational therapy, rehabilitative nursing and physiatry care coordination. PLAN: GI Status post Recent laparoscopic umbilical hernia repair 04/28/2020, prior left inguinal hernia repair May 2019, elevated LFTs, prior extensive workup with multiple diagnostic procedures noted for cirrhosis secondary to fatty liver, liver biopsy 05/25/2019 negative for malignancy with persisting mass. History of prior gastritis. -Surgical site looks clean, moving bowels. No significant discomfort. Well provide appropriate bowel management program. There was some mention in the record of possible history of hemochromatosis and note was a slight elevation of CEA for last May. This may need further follow-up as an outpatient. patient is status post recent episode of significant hematuria evidently considered posttraumatic combination with Enterobacter urinary tract infection. Xarelto again held, along with aspirin. Creatinine stable . He is covered with levofloxacin after several day course of ceftaroline, soon to DC. Dr. Boss, infectious disease specialist, has treated him in the past and he was scheduled to see Dr. Fofana, urologist , as an outpatient for further recommendations regarding bladder management. Evidently he had been managed for some time with nitrofurantoin suppression, possibly having converted to more resistant organisms from community colonization, will be reassessed.. Well proceed with transitioning to our bladder protocol to see if spontaneous voiding can recur without too high PVR after discontinuing the mijares, adding Pyridium and increasing Flow max. Will continue to closely follow post void residuals and sensation, capacity to void, need for adjustment in various medications and intermittent catheterization if indicated. It will be preferable to avoid repeated trauma if possible. It is possible long-term suppression and or Mijares usage may be appropriate due to neurogenic bladder that may be worsening of his MS progressing possibly in combination with BPH. Urology input regarding rx options welcome. We will look at status of UA as he progresses. Well see how he does and discuss later this week with the various provider team. Hematology-initial leukocytosis has improved with antibiotic interventions, hemoglobin, hematocrit stable Circulation- History of prior arterial thrombosis, improved edema according to nursing, who has previously cared for him. Generally on long-term anticoagulation, which had to be held due to hematuria related to incidental trauma related to Mijares placement. Continue KRISTINA lion, On losartan, will monitor and provide coverage for episodic spikes. Respiratory- history of hospitalization for suspected pneumonia earlier this month and chronic infiltrates noted on chest x-ray. Thus far, he is maintaining good oxygenation covered with current antibiotic approaches. Continue respiratory therapy treatments as indicated. 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 Well continue to monitor, apparently intolerant of a variety of MS medications, currently with an infection, steroids not indicated, but might be considered should the weakness continued to worsen once infection is considered well treated. Patient currently denies pain. Diabetes -BS well controlled, FBS low 130s have DC'd Accu-Cheks 1. Rehab- PT/OT advance gait and ADLs, strengthen/stretch/maintain ROM all 4limbs, energy conservation, family training TIME SPENT: Chart Review, examination and documentation 35 minutes. Allergies Coded Allergies: gabapentin (Verified Adverse Reaction, Intermediate, elevates MS symptoms, 04/25/20) modafinil (Verified Adverse Reaction, Intermediate, elevate MS symptoms, 04/25/20) Yghucwn-Ofz-Thw Reductase Inhibitor (Verified Adverse Reaction, Mild, "PASSES OUT", 04/25/20) glatiramer (copolymer 1) (Verified Adverse Reaction, Mild, weakness, 04/25/20) Vital Signs Vital Signs Date Time Temp Pulse Resp B/P (MAP) Pulse Ox O2 Delivery O2 Flow Rate FiO2 05/10/20 08:55 124/84 05/10/20 06:00 97.8 73 18 96 Room Air Current Medications Current Medications Current Medications Medications (Trade) Dose Ordered Sig/Avelino Route PRN Reason Start Time Stop Time Status Last Admin Dose Admin Acetaminophen (Tylenol Tab) 650 mg Q4HP PRN PO MILD PAIN (PS 1-4) 05/05/20 12:30 05/05/20 14:44 DC Acetaminophen (Tylenol Tab) 650 mg Q4HP PRN PO MILD PAIN (PS 1-4) 05/05/20 12:30 Albuterol Sulfate (Proventil Neb) 2.5 mg Q6HP PRN NEB SOB/WHEEZING 05/09/20 07:45 Albuterol/ Ipratropium (Duoneb (Ipr 0.5mg/Alb 2.5mg)) 3 ml RBID NEB 05/09/20 20:00 05/10/20 07:18 Albuterol/ Ipratropium (Duoneb (Ipr 0.5mg/Alb 2.5mg)) 3 ml RQ6H NEB 05/05/20 14:00 05/09/20 07:46 DC 05/09/20 07:41 Ascorbic Acid (Vitamin C) 500 mg DAILY PO 05/06/20 09:00 05/10/20 08:52 Aspirin (Ecotrin) 81 mg DAILY PO 05/06/20 09:00 05/07/20 11:05 DC 05/07/20 09:01 Baclofen (Lioresal) 5 mg TID PO 05/05/20 16:00 05/10/20 08:52 Calcium Carbonate (Tums) 500 mg DAILY PRN PO INDIGESTION 05/05/20 12:30 Docusate Sodium (Colace) 200 mg BID PO 05/05/20 21:00 05/10/20 08:52 Fluticasone Propionate (Flonase 0.05% Nasal [place]) 2 spray DAILY PRN NARES CONGESTION 05/05/20 12:30 Home Med (Med Rec Complete!) ASDIRECTED XX 05/05/20 18:45 05/05/20 18:36 DC Hydralazine HCl (Apresoline) 10 mg DAILYPRN PRN PO elevated S BP >180 05/05/20 17:15 Lactobacillus Acidophilus (Bacid) 1 ea TID PO 05/05/20 16:00 05/10/20 08:52 Levofloxacin (Levaquin) 500 mg DAILY@06 PO 05/06/20 06:00 05/10/20 08:11 DC 05/10/20 06:13 Losartan Potassium (Cozaar) 25 mg DAILY PO 05/06/20 09:00 05/10/20 08:55 Multivitamins (Theragram-M) 1 tab DAILY PO 05/06/20 09:00 05/05/20 14:44 DC Multivitamins (Theragram-M) 1 tab DAILY PO 05/06/20 09:00 05/10/20 08:52 Omeprazole (PriLOSEC) 20 mg DAILY PO 05/06/20 09:00 05/05/20 14:44 DC Omeprazole (PriLOSEC) 20 mg DAILY PO 05/06/20 09:00 05/10/20 08:52 Phenazopyridine HCl (Pyridium) 100 mg BID PO 05/09/20 09:00 05/12/20 08:59 05/10/20 08:52 Polyethylene Glycol (Miralax) 1 pkt DAILY PRN PO CONSTIPATION 05/05/20 12:30 05/05/20 14:43 DC Polyethylene Glycol (Miralax) 1 pkt DAILY PRN PO CONSTIPATION 05/05/20 12:30 05/10/20 09:01 Polyethylene Glycol (Miralax) 1 pkt DAILYPRN PRN PO CONSTIPATION 05/05/20 12:30 05/05/20 14:44 DC Rivaroxaban (Xarelto) 2.5 mg BID PO 05/05/20 21:00 05/05/20 14:45 DC Rivaroxaban (Xarelto) 2.5 mg BID PO 05/05/20 21:00 05/07/20 17:08 DC 05/07/20 09:02 Tamsulosin HCl (Flomax) 0.4 mg BID PO 05/10/20 09:00 05/10/20 08:52 Tamsulosin HCl (Flomax) 0.4 mg DAILY PO 05/08/20 09:00 05/10/20 07:22 DC 05/09/20 09:53 Vitamin D (Vitamin D) 2,000 units QHS PO 05/05/20 21:00 05/09/20 20:33 JING AKHTAR MD May 10, 2020 11:10
[2020-05-10 14:00] VITALS: BP 129/80
[2020-05-10 14:41] LABS: BILIRUBIN, URINE MANUAL OBSCURED (NEGATIVE); GLUCOSE, URINE (UA) MANUAL NEGATIVE (NEGATIVE); KETONE, URINE MANUAL NEGATIVE (NEGATIVE); UROBILINOGEN, URINE MANUAL OBSCURED mg/dl (NORMAL)
[2020-05-10 14:52] LABS: HYALINE CAST, URINE 0-1 /lpf (0-1); RBC, URINE 0-1 /hpf (0-3); SQUAMOUS EPITHELIAL CELL URINE SMALL AMOUNT /hpf (SMALL AMT)
[2020-05-10 14:53] LABS: MUCUS, URINE MOD AMOUNT (NEGATIVE)
[2020-05-10 14:55] LABS: GRANULAR CAST, URINE 0-1 /lpf
[2020-05-10 14:56] LABS: BACTERIA, URINE SMALL AMOUNT
[2020-05-10 14:57] LABS: AMORPHOUS SEDIMENT, URINE SMALL AMOUNT (NEGATIVE)
[2020-05-10 20:01] VITALS: BP 143/71
[2020-05-10] MEDS: VITAMIN D 1,000 INTERNATIONAL UNITS TABLET PO SCH (20:46)
[2020-05-11 05:31] VITALS: BP 105/57
[2020-05-11] MEDS: IPRATROPIUM 0.5MG/ALBUTEROL 2.5MG INH SOL UD 3ML (DUONEB) NEB SCH ×2 (07:49→20:19)
[2020-05-11] MEDS: OMEPRAZOLE 20 MG CAP PO SCH (09:59)
[2020-05-11] MEDS: BACLOFEN 5MG PER 1/2 TABLET PO SCH ×3 (10:00→21:09)
[2020-05-11] MEDS: MULTIVITAMINS/MINERALS THERAP 1 TAB PO SCH (10:00)
[2020-05-11] MEDS: DOCUSATE SODIUM 100 MG CAP PO SCH ×2 (10:00→21:09)
[2020-05-11] MEDS: PHENAZOPYRIDINE 100 MG TAB PO SCH ×2 (10:00→21:08)
[2020-05-11] MEDS: ASCORBIC ACID 500 MG TAB PO SCH (10:00)
[2020-05-11] MEDS: TAMSULOSIN 0.4 MG CAP PO SCH ×2 (10:00→21:08)
[2020-05-11] MEDS: LACTOBACILLUS ACIDOPHILUS CAP (BACID) PO SCH ×3 (10:00→21:09)
[2020-05-11] MEDS: LOSARTAN 25 MG TAB PO SCH (10:01)
--- NOTE | 2020-05-11 12:15 | IPNPDOC ---
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 Smith did well over the weekend initiating his therapy program. Evidently, over the weekend,there was an episode of hematuria, xarelto, aspirin was stopped. He did well in therapy and this morning ambulated from his room to the therapy gym. Overall safety awareness is improving, require some cueing for consistency. Unfortunately, bladder training is proceeding with some difficulty, he is having challenges with hesitation, incomplete emptying or not being able to initiate a void. There has been no further briana hematuria since the weekend. We'll continue to see if the Flomax and Pyridium and timed attempted voids bring better results today and have requested urology's input regarding prostate issues or other pathology that may be further impacting the situation. REVIEW OF SYSTEMS: The following is a completed review of systems and has been reviewed. Review of systems otherwise unremarkable. PAIN: Patient self reports no pain. EYES: No recent vision changes. EARS, NOSE, & THROAT: No throat pain, or dysphagia, or rhinorrhea. CARDIOVASCULAR: Denies chest pain or palpitations. PULMONARY: Denies shortness of breath. GASTROINTESTINAL: Denies constipation/diarrhea. Healing surgical site GENITOURINARY: . Hesitancy and incomplete, history noted for abnormal cystoscopy and some type of bladder wall lesion, reportedly non malignant MUSCULOSKELETAL: No new complaints. NEUROLOGICAL:. Long-standing MS. Generalized lower extremity greater than upper extremity, left greater than right sided weakness HEMATOLOGICAL: Status post hematuria, stable . SKIN: . Intact PSYCHIATRIC: Unremarkable. All other review of systems found to be negative. PHYSICAL EXAMINATION: VITAL SIGNS: Please see below. GENERAL: Pleasant and cooperative. No acute distress. Alert and oriented times three. Slow, appropriate speech HEENT: Extraocular movements intact with some bobbing nystagmus on testing. Clear conjunctiva, no adenopathy or thyromegaly. CARDIOVASCULAR: Regular rate and rhythm. No murmurs, rubs, or gallops. LUNGS: Clear to auscultation bilaterally. No wheezes. No rhonchi. ABDOMEN: Soft, mildly distended. Positive bowel sounds. Normal active bowel sounds, nontender, gets distended when unable to void. : Nursing notes cath volumes 300-700 q 6 hr, little or no spontaneous output NEUROLOGICAL: Alert and oriented times three. Cranial nerves II through XII intact. Sensation intact. 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 FUNCTIONAL STATUS: Working on sit to stand with contact-guard assistance, ambulated from room to therapy gym, doing better with foot placement, using AFOS. They are also increasing distance ambulation using walker from room to therapy gym and back now. Without AFO, he has decreased foot clearance, in general with or without it, when fatigued, worsens and requires frequent rest breaks. GOALS: Maintaining medical stability, church of prior level of functional mobility using assistive device, safe transfers and independent performance of activities of daily living. ASSESSMENT: Status post laparoscopic repair of strangulated umbilical hernia 04/28/2020 MS with 30 year disability predominantly left radha-and bilateral lower extremity paresis with coordination, balance and some visual deficits Neurogenic bladder. Hematuria with prior cystoscopy 2018 noted for atypical cells in the bladder reported negative cytology on subsequent evaluation UTI. Pneumonia Type 2 diabetes, well controlled. Fatty liver. Hypertension. Hypertensive heart disease. Obstructive sleep apnea. Vitamin D deficiency. Hemochromatosis. Sinus tachycardia. 75 year-old gentleman with 30 year history of multiple sclerosis who presented status post laparoscopic repair of umbilical hernia 04/28/2020 with c omplications of UTI, possible pneumonia, profound hematuria related to Mijares placement in presence of anticoagulation for prior history of arterial thrombosis. Hematuria recurred over weekend, abating now off anticoagulation. Levaquin ended. He is currently medically stable and has begin comprehensive rehabilitation. We appreciate hospitalist service consult for close medical attention and coordination of his complex chronic care needs. His autoimmune condition has probably flared as a result of the recent series of events resulting in significant deterioration in function, increased weakness, less coordination and increased risk of falls, requiring intervention of physical therapy, occupational therapy, rehabilitative nursing and physiatry care coordination. PLAN: GI Status post Recent laparoscopic umbilical hernia repair 04/28/2020, prior left inguinal hernia repair May 2019, elevated LFTs, prior extensive workup with multiple diagnostic procedures noted for cirrhosis secondary to fatty liver, liver biopsy 05/25/2019 negative for malignancy with persisting mass. History of prior gastritis. -Surgical site looks clean, moving bowels. No significant discomfort. Well provide appropriate bowel management program. There was some mention in the record of possible history of hemochromatosis and note was a slight elevation of CEA for last May. This may need further follow-up as an outpatient. patient is status post recent episode of significant hematuria evidently considered posttraumatic combination with Enterobacter urinary tract infection. Xarelto again held, along with aspirin. Creatinine stable . He is covered with levofloxacin after several day course of ceftaroline, soon to DC. Dr. Boss, infectious disease specialist, has treated him in the past and he was scheduled to see Dr. Fofana, urologist , as an outpatient for further recommendations regarding bladder management. Evidently he had been managed for some time with nitrofurantoin suppression, possibly having converted to more resistant orga nisms from community colonization, will be reassessed.. Continuing bladder protocol and still struggling with spontaneous voiding after discontinuing the mijares despite adding Pyridium and increasing Flow max. It will be preferable to avoid repeated trauma if possible and is possible long-term suppression and or Mijares usage may be appropriate due to neurogenic bladder that may be worsening due to his MS progressing in combination with BPH or other possible pathology. Urology input regarding rx options welcome. We will look at status of UA as he progresses. Rehab functional mobility and self care needs will require more practice if he also has to manage a Mijares bag. Hematology-initial leukocytosis has improved with antibiotic interventions, hemoglobin, hematocrit stable Circulation- History of prior arterial thrombosis, improved edema according to nursing, who has previously cared for him. Generally on long-term anticoagulation, which had to be held due to hematuria related to incidental trauma related to Mijares placement. Continue KRISTINA lion, On losartan, will monitor and provide coverage for episodic spikes. Respiratory- history of hospitalization for suspected pneumonia earlier this month and chronic infiltrates noted on chest x-ray. Thus far, he is maintaining good oxygenation covered with current antibiotic approaches. Continue respiratory therapy treatments as indicated. 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 Well continue to monitor, apparently intolerant of a variety of MS medications, currently with an infection, steroids not indicated, but might be considered should the weakness continued to worsen once infection is considered well treated. Patient currently denies pain. Diabetes -BS well controlled, FBS low 130s have DC'd Accu-Cheks 1. Rehab- PT/OT advance gait and ADLs, strengthen/stretch/maintain ROM all 4limbs, energy conservation, family training TIME SPENT: Chart Review, examination and documentation 35 minutes. Allergies Coded Allergies: gabapentin (Verified Adverse Reaction, Intermediate, elevates MS symptoms, 04/25/20) modafinil (Verified Adverse Reaction, Intermediate, elevate MS symptoms, 04/25/20) Pflyydd-Rek-Ozi Reductase Inhibitor (Verified Adverse Reaction, Mild, "PASSES OUT", 04/25/20) glatiramer (copolymer 1) (Verified Adverse Reaction, Mild, weakness, 04/25/20) Vital Signs Vital Signs Date Time Temp Pulse Resp B/P (MAP) Pulse Ox O2 Delivery O2 Flow Rate FiO2 05/11/20 10:01 105/57 05/11/20 05:31 98.2 87 18 97 Room Air Laboratory Data Labs 24H Laboratory Tests 2 05/10/20 14:26: Urine Color (JEAN) AMBERH, Urine Appearance (JEAN) CLEAR, Urine pH (JEAN) 5.0, Urine Specific [place] (JEAN) 1.020, Urine Protein OBSCUREDH, Bedside Urine Glucose (UA) NEGATIVE, Bedside Urine Ketones (LAB) NEGATIVE, Bedside Urine Blood NEGATIVE, Bedside Urine Nitrite (LAB) OBSCUREDH, Bedside Urine Bilirubin (LAB) OBSCUREDH, Bedside Urine Urobilinogen (LAB) OBSCUREDH, Bedside Urine Leukocyte Esterase (L OBSCUREDH, Urine Sediment Examination PERFORMED, Urine RBC 0-1, Urine WBC 1-3, Urine Squamous Epithelial Cells SMALL AMOUNT, Urine Amorphous Sediment SMALL AMOUNTH, Urine Bacteria SMALL AMOUNTH, Urine Hyaline Casts 0-1, Urine Granular Casts 0-1, Urine Mucus MOD AMOUNTH Microbiology Microbiology 05/10/20 Urine Culture - Final, Complete Current Medications Current Medications Current Medications Medications (Trade) Dose Ordered Sig/Avelino Route PRN Reason Start Time Stop Time Status Last Admin Dose Admin Acetaminophen (Tylenol Tab) 650 mg Q4HP PRN PO MILD PAIN (PS 1-4) 05/05/20 12:30 05/05/20 14:44 DC Acetaminophen (Tylenol Tab) 650 mg Q4HP PRN PO MILD PAIN (PS 1-4) 05/05/20 12:30 Albuterol Sulfate (Proventil Neb) 2.5 mg Q6HP PRN NEB SOB/WHEEZING 05/09/20 07:45 Albuterol/ Ipratropium (Duoneb (Ipr 0.5mg/Alb 2.5mg)) 3 ml RBID NEB 05/09/20 20:00 05/11/20 07:49 Albuterol/ Ipratropium (Duoneb (Ipr 0.5mg/Alb 2.5mg)) 3 ml RQ6H NEB 05/05/20 14:00 05/09/20 07:46 DC 05/09/20 07:41 Ascorbic Acid (Vitamin C) 500 mg DAILY PO 05/06/20 09:00 05/11/20 10:00 Aspirin (Ecotrin) 81 mg DAILY PO 05/06/20 09:00 05/07/20 11:05 DC 05/07/20 09:01 Baclofen (Lioresal) 5 mg TID PO 05/05/20 16:00 05/11/20 10:00 Calcium Carbonate (Tums) 500 mg DAILY PRN PO INDIGESTION 05/05/20 12:30 Docusate Sodium (Colace) 200 mg BID PO 05/05/20 21:00 05/11/20 10:00 Fluticasone Propionate (Flonase 0.05% Nasal [place]) 2 spray DAILY PRN NARES CONGESTION 05/05/20 12:30 Home Med (Med Rec Complete!) ASDIRECTED XX 05/05/20 18:45 05/05/20 18:36 DC Hydralazine HCl (Apresoline) 10 mg DAILYPRN PRN PO elevated S BP >180 05/05/20 17:15 Lactobacillus Acidophilus (Bacid) 1 ea TID PO 05/05/20 16:00 05/11/20 10:00 Levofloxacin (Levaquin) 500 mg DAILY@06 PO 05/06/20 06:00 05/10/20 08:11 DC 05/10/20 06:13 Losartan Potassium (Cozaar) 25 mg DAILY PO 05/06/20 09:00 05/11/20 10:01 Multivitamins (Theragram-M) 1 tab DAILY PO 05/06/20 09:00 05/05/20 14:44 DC Multivitamins (Theragram-M) 1 tab DAILY PO 05/06/20 09:00 05/11/20 10:00 Omeprazole (PriLOSEC) 20 mg DAILY PO 05/06/20 09:00 05/05/20 14:44 DC Omeprazole (PriLOSEC) 20 mg DAILY PO 05/06/20 09:00 05/11/20 09:59 Phenazopyridine HCl (Pyridium) 100 mg BID PO 05/09/20 09:00 05/12/20 08:59 05/11/20 10:00 Polyethylene Glycol (Miralax) 1 pkt DAILY PRN PO CONSTIPATION 05/05/20 12:30 05/05/20 14:43 DC Polyethylene Glycol (Miralax) 1 pkt DAILY PRN PO CONSTIPATION 05/05/20 12:30 05/10/20 09:01 Polyethylene Glycol (Miralax) 1 pkt DAILYPRN PRN PO CONSTIPATION 05/05/20 12:30 05/05/20 14:44 DC Rivaroxaban (Xarelto) 2.5 mg BID PO 05/05/20 21:00 05/05/20 14:45 DC Rivaroxaban (Xarelto) 2.5 mg BID PO 05/05/20 21:00 05/07/20 17:08 DC 05/07/20 09:02 Tamsulosin HCl (Flomax) 0.4 mg BID PO 05/10/20 09:00 05/11/20 10:00 Tamsulosin HCl (Flomax) 0.4 mg DAILY PO 05/08/20 09:00 05/10/20 07:22 DC 05/09/20 09:53 Vitamin D (Vitamin D) 2,000 units QHS PO 05/05/20 21:00 05/10/20 20:46 JING AKHTAR MD May 11, 2020 12:15
[2020-05-11 14:00] VITALS: BP 138/78
[2020-05-11 15:53] LABS: BILIRUBIN, URINE MANUAL OBSCURED (NEGATIVE); GLUCOSE, URINE (UA) MANUAL NEGATIVE (NEGATIVE); KETONE, URINE MANUAL OBSCURED mg/dL (NEGATIVE); UROBILINOGEN, URINE MANUAL OBSCURED mg/dl (NORMAL)
[2020-05-11 15:56] LABS: AMORPHOUS SEDIMENT, URINE SMALL AMOUNT (NEGATIVE); BACTERIA, URINE NONE SEEN; HYALINE CAST, URINE NONE SEEN /lpf (0-1); MUCUS, URINE SMALL AMOUNT (NEGATIVE); RBC, URINE 0-1 /hpf (0-3); SQUAMOUS EPITHELIAL CELL URINE SMALL AMOUNT /hpf (SMALL AMT)
[2020-05-11 20:00] VITALS: BP 152/79
[2020-05-11] MEDS: VITAMIN D 1,000 INTERNATIONAL UNITS TABLET PO SCH (21:09)
[2020-05-12 05:52] VITALS: BP 122/59
[2020-05-12] MEDS: IPRATROPIUM 0.5MG/ALBUTEROL 2.5MG INH SOL UD 3ML (DUONEB) NEB SCH ×2 (07:18→19:47)
[2020-05-12] MEDS: MULTIVITAMINS/MINERALS THERAP 1 TAB PO SCH (08:43)
[2020-05-12] MEDS: TAMSULOSIN 0.4 MG CAP PO SCH ×2 (08:43→20:12)
[2020-05-12] MEDS: DOCUSATE SODIUM 100 MG CAP PO SCH ×2 (08:43→20:12)
[2020-05-12] MEDS: LACTOBACILLUS ACIDOPHILUS CAP (BACID) PO SCH ×3 (08:43→20:13)
[2020-05-12] MEDS: LOSARTAN 25 MG TAB PO SCH (08:43)
[2020-05-12] MEDS: BACLOFEN 5MG PER 1/2 TABLET PO SCH ×3 (08:43→20:12)
[2020-05-12] MEDS: OMEPRAZOLE 20 MG CAP PO SCH (08:44)
[2020-05-12] MEDS: ASCORBIC ACID 500 MG TAB PO SCH (08:44)
[2020-05-12] MEDS: MIRALAX *UNIT DOSE* 17GM PACKET PO PRN (08:50)
--- NOTE | 2020-05-12 10:14 | IPNPDOC ---
Text Note Date of Service The patient was seen on 05/12/20. NOTE Subjective: No any acute events overnight. Patient denied fever, chills, nausea, vomiting, diarrhea or dysuria Objective: GENERAL APPEARANCE: NAD HEENT: no scleral icterus, no JVD, EOMI CARDIOVASCULAR: S1S2 LUNGS: CTA ABDOMEN: soft & not tender w palpitation MUSCULOSKELETAL: no cyanosis, no swelling INTEGUMENT: no generalized palor NEUROLOGICAL: follows commands, speech not dysarthric Assessment and plan: 75 year-old gentleman with 30 year history of multiple sclerosis who presented status post laparoscopic repair of umbilical hernia 04/28/2020 with complications of UTI, possible pneumonia, profound hematuria related to Mijares placement in presence of anticoagulation for prior history of arterial thrombosis. Hematuria recurred over weekend, abating now off anticoagulation. Levaquin ended. He is currently medically stable and has begin comprehensive rehabilitation. Hematuria likely 2/2 to trauma s/p mijares catheter placement, on xarelto and ASA. Resolved. Resolved UTI , Enterobacter cloacae Patient completed course of antibiotics HCAP Resolved, patient completed course of antibiotics Urinary retention likely 2/2 to neurogenic bladder 2/2 MS and BPH -Discussed with Dr. Fofana (urology) who believes, since patient has been on flomax this hospitalization, it is likely that MS is causing continued retention. -C/w mijares catheter, voiding trial on 05/08/20. -C/w flomax Weakness likely 2/2 to acute infection above -PT/OT History of arterial thrombosis -D/violetta AC previously to hematuria -Restarted xarelto today Diabetes -BS controlled -Sliding scale insulin coverage. -C/w metformin for now. Multiple sclerosis (MS). -PT/OT Recent umbilical hernia repair. -Surgical site looks clean VS,Fishbone, I+O VS, Fishbone, I+O Vital Signs Date Time Temp Pulse Resp B/P (MAP) Pulse Ox O2 Delivery O2 Flow Rate FiO2 05/12/20 08:43 122/59 05/12/20 05:52 97.2 92 18 96 Room Air I&O- Last 24 Hours up to 6 AM 05/12/20 06:00 Intake Total 1560 ml Output Total 1850 ml Balance -290 ml DONTE CALI DO May 12, 2020 10:14
[2020-05-12 14:00] VITALS: BP 136/86
[2020-05-12] MEDS: RIVAROXABAN 10 MG TAB (XARELTO) PO SCH (16:50)
[2020-05-12] MEDS: OYSTER SHELL CALCIUM 500 MG TAB PO SCH (16:53)
[2020-05-12 20:00] VITALS: BP 163/89
[2020-05-12] MEDS: VITAMIN D 1,000 INTERNATIONAL UNITS TABLET PO SCH (20:12)
[2020-05-12] MEDS: metFORMIN XR 500MG TAB *GLUCOPHAGE XR PO SCH (20:13)
[2020-05-13 05:54] VITALS: BP 111/61
[2020-05-13] MEDS: IPRATROPIUM 0.5MG/ALBUTEROL 2.5MG INH SOL UD 3ML (DUONEB) NEB SCH ×2 (07:13→20:26)
[2020-05-13] MEDS: LACTOBACILLUS ACIDOPHILUS CAP (BACID) PO SCH ×3 (09:49→21:12)
[2020-05-13] MEDS: OYSTER SHELL CALCIUM 500 MG TAB PO SCH (09:50)
[2020-05-13] MEDS: BACLOFEN 5MG PER 1/2 TABLET PO SCH ×3 (09:50→21:11)
[2020-05-13] MEDS: ASCORBIC ACID 500 MG TAB PO SCH (09:50)
[2020-05-13] MEDS: TAMSULOSIN 0.4 MG CAP PO SCH ×2 (09:50→21:12)
[2020-05-13] MEDS: DOCUSATE SODIUM 100 MG CAP PO SCH ×3 (09:50→21:27)
[2020-05-13] MEDS: LOSARTAN 25 MG TAB PO SCH (09:50)
[2020-05-13] MEDS: MULTIVITAMINS/MINERALS THERAP 1 TAB PO SCH (09:51)
[2020-05-13] MEDS: OMEPRAZOLE 20 MG CAP PO SCH (09:51)
[2020-05-13] MEDS: MIRALAX *UNIT DOSE* 17GM PACKET PO PRN (10:03)
--- NOTE | 2020-05-13 11:20 | IPNPDOC ---
Text Note Date of Service The patient was seen on 05/13/20. NOTE Subjective: No any acute events overnight. Patient stated that he slept well. Objective: GENERAL APPEARANCE: NAD HEENT: no scleral icterus, no JVD, EOMI CARDIOVASCULAR: S1S2 LUNGS: CTA ABDOMEN: soft & not tender w palpitation MUSCULOSKELETAL: no cyanosis, no swelling INTEGUMENT: no generalized palor NEUROLOGICAL: follows commands, speech not dysarthric Assessment and plan: 75 year-old gentleman with 30 year history of multiple sclerosis who presented status post laparoscopic repair of umbilical hernia 04/28/2020 with complications of UTI, possible pneumonia, profound hematuria related to Mijares placement in presence of anticoagulation for prior history of arterial thrombosis. Hematuria recurred over weekend, abating now off anticoagulation. Levaquin ended. He is currently medically stable and has begin comprehensive rehabilitation. Hematuria likely 2/2 to trauma s/p mijares catheter placement, on xarelto and ASA. Resolved. Resolved UTI , Enterobacter cloacae Patient completed course of antibiotics HCAP Resolved, patient completed course of antibiotics Urinary retention likely 2/2 to neurogenic bladder 2/2 MS and BPH -Discussed with Dr. Fofana (urology) who believes, since patient has been on flomax this hospitalization, it is likely that MS is causing continued retention. -C/w mijares catheter, voiding trial on 05/08/20. -C/w flomax Weakness likely 2/2 to acute infection above -PT/OT History of arterial thrombosis -D/violetta AC previously to hematuria -Continue with xarelto today Diabetes -BS controlled -Sliding scale insulin coverage. -C/w metformin for now. Multiple sclerosis (MS). -PT/OT Recent umbilical hernia repair. -Surgical site looks clean VS,Fishbone, I+O VS, Fishbone, I+O Vital Signs Date Time Temp Pulse Resp B/P (MAP) Pulse Ox O2 Delivery O2 Flow Rate FiO2 05/13/20 09:50 128/68 05/13/20 05:54 97.8 88 18 96 Room Air I&O- Last 24 Hours up to 6 AM 05/13/20 06:00 Intake Total 2300 ml Output Total 1600 ml Balance 700 ml DONTE CALI DO May 13, 2020 11:20
[2020-05-13 14:00] VITALS: BP 142/80
[2020-05-13] MEDS: RIVAROXABAN 10 MG TAB (XARELTO) PO SCH ×2 (17:34→18:37)
[2020-05-13] MEDS ORDERED: RIVAROXABAN 15 MG TAB (XARELTO) PO SCH (18:00)
[2020-05-13 20:00] VITALS: BP 151/81
[2020-05-13] MEDS: VITAMIN D 1,000 INTERNATIONAL UNITS TABLET PO SCH (21:11)
[2020-05-13] MEDS: metFORMIN XR 500MG TAB *GLUCOPHAGE XR PO SCH (21:12)
[2020-05-14] MEDS: RIVAROXABAN 10 MG TAB (XARELTO) PO SCH ×2 (05:34→17:19)
[2020-05-14 06:00] VITALS: BP 122/58
[2020-05-14] MEDS: IPRATROPIUM 0.5MG/ALBUTEROL 2.5MG INH SOL UD 3ML (DUONEB) NEB SCH ×2 (07:07→20:15)
[2020-05-14] MEDS: MIRALAX *UNIT DOSE* 17GM PACKET PO PRN (08:53)
[2020-05-14] MEDS: DOCUSATE SODIUM 100 MG CAP PO SCH ×2 (08:54→21:18)
[2020-05-14] MEDS: OYSTER SHELL CALCIUM 500 MG TAB PO SCH (08:54)
[2020-05-14] MEDS: MULTIVITAMINS/MINERALS THERAP 1 TAB PO SCH (08:54)
[2020-05-14] MEDS: LACTOBACILLUS ACIDOPHILUS CAP (BACID) PO SCH ×3 (08:54→21:17)
[2020-05-14] MEDS: TAMSULOSIN 0.4 MG CAP PO SCH ×2 (08:54→21:18)
[2020-05-14] MEDS: BACLOFEN 5MG PER 1/2 TABLET PO SCH ×3 (08:54→21:17)
[2020-05-14] MEDS: LOSARTAN 25 MG TAB PO SCH (08:55)
[2020-05-14] MEDS: ASCORBIC ACID 500 MG TAB PO SCH (08:55)
[2020-05-14] MEDS: OMEPRAZOLE 20 MG CAP PO SCH (08:55)
[2020-05-14 14:00] VITALS: BP 135/76
--- NOTE | 2020-05-14 18:22 | IPNPDOC ---
Text Note Date of Service The patient was seen on 05/14/20. NOTE Subjective: No any acute events overnight. he denies fever, chills, nausea, vomiting Objective: GENERAL APPEARANCE: NAD HEENT: no scleral icterus, no JVD, EOMI CARDIOVASCULAR: S1S2 LUNGS: CTA ABDOMEN: soft & not tender w palpitation MUSCULOSKELETAL: no cyanosis, no swelling INTEGUMENT: no generalized palor NEUROLOGICAL: follows commands, speech not dysarthric Assessment and plan: 75 year-old gentleman with 30 year history of multiple sclerosis who presented status post laparoscopic repair of umbilical hernia 04/28/2020 with complications of UTI, possible pneumonia, profound hematuria related to Mijares placement in presence of anticoagulation for prior history of arterial thrombosis. Hematuria recurred over weekend, abating now off anticoagulation. Levaquin ended. He is currently medically stable and has begin comprehensive rehabilitation. Hematuria likely 2/2 to trauma s/p mijares catheter placement, on xarelto and ASA. Resolved. Resolved UTI , Enterobacter cloacae Patient completed course of antibiotics HCAP Resolved, patient completed course of antibiotics Urinary retention likely 2/2 to neurogenic bladder 2/2 MS and BPH -Discussed with Dr. Fofana (urology) who believes, since patient has been on flomax this hospitalization, it is likely that MS is causing continued retention. -C/w mijares catheter, voiding trial on 05/08/20. -C/w flomax Weakness likely 2/2 to acute infection above -PT/OT History of arterial thrombosis -D/violetta AC previously to hematuria -Continue with xarelto Diabetes -BS controlled -Sliding scale insulin coverage. -C/w metformin for now. Multiple sclerosis (MS). -PT/OT Recent umbilical hernia repair. -Surgical site looks clean VS,Fishbone, I+O VS, Fishbone, I+O Vital Signs Date Time Temp Pulse Resp B/P (MAP) Pulse Ox O2 Delivery O2 Flow Rate FiO2 05/14/20 14:00 97.5 102 19 135/76 (95) 97 Room Air I&O- Last 24 Hours up to 6 AM 05/14/20 06:00 Intake Total 840 ml Output Total 2450 ml Balance -1610 ml DONTE CALI DO May 14, 2020 18:22
[2020-05-14] MEDS ORDERED: PILL CUTTER 1 EACH XX PRN (18:30)
[2020-05-14 20:05] VITALS: BP 141/76
[2020-05-14] MEDS: metFORMIN XR 500MG TAB *GLUCOPHAGE XR PO SCH (21:17)
[2020-05-14] MEDS: VITAMIN D 1,000 INTERNATIONAL UNITS TABLET PO SCH (21:18)
[2020-05-15 05:51] VITALS: BP 119/69
[2020-05-15] MEDS: RIVAROXABAN 10 MG TAB (XARELTO) PO SCH ×2 (05:55→16:49)
[2020-05-15] MEDS: IPRATROPIUM 0.5MG/ALBUTEROL 2.5MG INH SOL UD 3ML (DUONEB) NEB SCH ×2 (07:12→20:00)
[2020-05-15] MEDS: OYSTER SHELL CALCIUM 500 MG TAB PO SCH (08:37)
[2020-05-15] MEDS: LOSARTAN 25 MG TAB PO SCH (08:37)
[2020-05-15] MEDS: LACTOBACILLUS ACIDOPHILUS CAP (BACID) PO SCH ×3 (08:38→20:50)
[2020-05-15] MEDS: DOCUSATE SODIUM 100 MG CAP PO SCH ×2 (08:38→20:50)
[2020-05-15] MEDS: MULTIVITAMINS/MINERALS THERAP 1 TAB PO SCH (08:38)
[2020-05-15] MEDS: BACLOFEN 5MG PER 1/2 TABLET PO SCH ×3 (08:38→20:51)
[2020-05-15] MEDS: TAMSULOSIN 0.4 MG CAP PO SCH ×2 (08:38→20:49)
[2020-05-15] MEDS: OMEPRAZOLE 20 MG CAP PO SCH (08:38)
[2020-05-15] MEDS: ASCORBIC ACID 500 MG TAB PO SCH (08:38)
[2020-05-15] MEDS: MIRALAX *UNIT DOSE* 17GM PACKET PO PRN (08:44)
--- NOTE | 2020-05-15 09:56 | IPNPDOC ---
PM&R Progress Note DATE OF SERVICE: May 15, 2020 [employer] Progress Note DATE OF ADMISSION: May 05, 2020 at 14:00 INPATIENT REHABILITATION ADMISSION DAY: #10 CHIEF COMPLAINT: Generalized weakness, decreased coordination, abdominal distention, urinary retention requiring Urban drainage SUBJECTIVE: Mr. Smith did well over the weekend continuing his therapy program. No further episoded of hematuria, however patient was concerned at restart of xarelto at higher than usual dosing and dose adjusted, aspirin remains stopped. He continues to make progress in therapy despite flucutating shifts in strength and endurance due to the MS and having to negotiate mobility safely while also managing the Urban collection system. Now more frequently able to ambulate from his room to the therapy gym using his AFO. Overall safety awareness is improving, require some cueing for consistency. Bladder training was with some difficulty, due to challenges with hesitation, incomplete emptying and not being able to initiate a void Urban had to be re-inserted. There has been no further briana hematuria over a week. The urologists input was to schedule the most proximate out patient follow up P discharge to reassess prostate issues or other pathology that may be further impacting the situation. REVIEW OF SYSTEMS: The following is a completed review of systems and has been reviewed. Review of systems otherwise unremarkable. PAIN: Patient self reports no pain. EYES: No recent vision changes. EARS, NOSE, & THROAT: No throat pain, or dysphagia, or rhinorrhea. CARDIOVASCULAR: Denies chest pain or palpitations. PULMONARY: Denies shortness of breath. GASTROINTESTINAL: Denies constipation/diarrhea. Healing surgical sites GENITOURINARY: . Hesitancy and incomplete, history noted for abnormal cystoscopy and some type of bladder wall lesion, reportedly non malignant MUSCULOSKELETAL: No new complaints. NEUROLOGICAL:. Long-standing MS. Generalized lower extremity greater than upper extremity, left greater than right sided weakness HEMATOLOGICAL: Status post hematuria, stable . SKIN: . Intact PSYCHIATRIC: Unremarkable. All other review of systems found to be negative. PHYSICAL EXAMINATION: VITAL SIGNS: Please see below. GENERAL: Pleasant and cooperative, expresses consternation over sense of not feeling his concerns heard over weekend, able to be redirected. Alert and oriented times three. Slow, appropriate speech HEENT: Extraocular movements intact with some bobbing nystagmus on testing. CARDIOVASCULAR: Regular rate and rhythm. No murmurs, rubs, or gallops. LUNGS: Clear to auscultation bilaterally. No wheezes. No rhonchi. ABDOMEN: Soft, mildly distended. Positive bowel sounds. Normal active bowel sounds, nontender. : Urban, clear yellow urine NEUROLOGICAL: Alert and oriented times three. Cranial nerves II through XII intact. Sensation intact. 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 FUNCTIONAL STATUS: Working on sit to stand with contact-guard assistance, ambulated from room to therapy gym, doing better with foot placement, using AFOS. They are also increasing distance ambulation using walker from room to therapy gym and back now. Without AFO, he has decreased foot clearance, in general with or without it, when fatigued, worsens and requires frequent rest breaks.Working on adaptive equipment for fine motor activities. He was minimal to contact-guard assistance with showering activities for safety. Progressing to mod I for the ambulatory activities using walker, some mild cognitive issues and need for cues for consistent carryover noted. GOALS: Maintaining medical stability, mormon of prior level of functional mobility using assistive device, safe transfers and independent performance of activities of daily living. ASSESSMENT: Status post laparoscopic repair of strangulated umbilical hernia 04/28/2020 MS with 30 year disability predominantly left radha-and bilateral lower extremity paresis with coordination, balance and some visual deficits Neurogenic bladder. Hematuria with prior cystoscopy 2019 noted for atypical cells in the bladder reported negative cytology on subsequent evaluation UTI. Pneumonia Type 2 diabetes, well controlled. Fatty liver. Hypertension. Hypertensive heart disease. Obstructive sleep apnea. Vitamin D deficiency. Hemochromatosis. Sinus tachycardia. 75 year-old gentleman with 30 year history of multiple sclerosis who presented status post laparoscopic repair of umbilical hernia 04/28/2020 with complications of UTI, possible pneumonia, profound hematuria related to Urban placement in presence of anticoagulation for prior history of arterial thrombosis. No recurrence of hematuria with recent resumption of Xarelto. Levaquin ended. He is currently medically stable and continues comprehensive rehabilitation. We appreciate hospitalist service consult for close medical attention and coordination of his complex chronic care needs. His autoimmune condition has probably flared as a result of the recent series of events resul ting in significant deterioration in function, increased weakness, less coordination and increased risk of falls, requiring intervention of physical therapy, occupational therapy, rehabilitative nursing and physiatry care coordination. PLAN: GI Status post Recent laparoscopic umbilical hernia repair 04/28/2020, prior left inguinal hernia repair May 2019, elevated LFTs, prior extensive workup with multiple diagnostic procedures noted for cirrhosis secondary to fatty liver, liver biopsy 05/25/2019 negative for malignancy with persisting mass. History of prior gastritis. -Surgical site looks clean, moving bowels. No significant discomfort. Well continue to provide appropriate bowel management program. There was some mention in the record of possible history of hemochromatosis and note was a slight elevation of CEA for last May. This may need further follow-up as an outpatient. patient is status post recent episode of significant hematuria evidently considered posttraumatic combination with Enterobacter urinary tract infection. . Creatinine stable . Currently requiring Urban usage due to neurogenic bladder that may be worsening due to his MS progressing in combination with BPH or other possible pathology. Urology input regarding rx options welcome. We will look at status of UA as he progresses. Rehab functional mobility and self care needs will require more practice as he also has to manage a Urban bag. Hematology-initial leukocytosis has improved with antibiotic interventions, hemoglobin, hematocrit stable Circulation- History of prior arterial thrombosis, improved edema according to nursing, who has previously cared for him. Generally on long-term anticoagulation. Xarelto resumed at usual dosing 2.5mg BID. Continue KRISTINA lion, On losartan, will monitor and provide coverage for episodic spikes. Respiratory- history of hospitalization for suspected pneumonia earlier this mo nth and chronic infiltrates noted on chest x-ray. Thus far, he is maintaining good oxygenation covered with current antibiotic approaches. Continue respiratory therapy treatments as indicated. 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 Well continue to monitor, apparently intolerant of a variety of MS medications, currently with an infection, steroids not indicated, but might be considered should the weakness continued to worsen once infection is considered well treated. Patient currently denies pain. Diabetes -BS well controlled, FBS low 130s have DC'd Accu-Cheks 1. Rehab- PT/OT advance gait and ADLs, strengthen/stretch/maintain ROM all 4limbs, energy conservation, family training TIME SPENT: Chart Review, examination and documentation 35 minutes. Allergies Coded Allergies: gabapentin (Verified Adverse Reaction, Intermediate, elevates MS symptoms, 04/25/20) modafinil (Verified Adverse Reaction, Intermediate, elevate MS symptoms, 04/25/20) Mqbschv-Gpw-[id number] Reductase Inhibitor (Verified Adverse Reaction, Mild, "PASSES OUT", 04/25/20) glatiramer (copolymer 1) (Verified Adverse Reaction, Mild, weakness, 04/25/20) Vital Signs Vital Signs Date Time Temp Pulse Resp B/P (MAP) Pulse Ox O2 Delivery O2 Flow Rate FiO2 05/15/20 08:37 119/69 05/15/20 05:51 97.7 91 18 97 Room Air Microbiology Microbiology 05/11/20 Urine Culture - Final, Complete 05/10/20 Urine Culture - Final, Complete Current Medications Current Medications Current Medications Medications (Trade) Dose Ordered Sig/Avelino Route PRN Reason Start Time Stop Time Status Last Admin Dose Admin Acetaminophen (Tylenol Tab) 650 mg Q4HP PRN PO MILD PAIN (PS 1-4) 05/05/20 12:30 05/05/20 14:44 DC Acetaminophen (Tylenol Tab) 650 mg Q4HP PRN PO MILD PAIN (PS 1-4) 05/05/20 12:30 Albuterol Sulfate (Proventil Neb) 2.5 mg Q6HP PRN NEB SOB/WHEEZING 05/09/20 07:45 Albuterol/ Ipratropium (Duoneb (Ipr 0.5mg/Alb 2.5mg)) 3 ml RBID NEB 05/09/20 20:00 05/15/20 07:12 Albuterol/ Ipratropium (Duoneb (Ipr 0.5mg/Alb 2.5mg)) 3 ml RQ6H NEB 05/05/20 14:00 05/09/20 07:46 DC 05/09/20 07:41 Ascorbic Acid (Vitamin C) 500 mg DAILY PO 05/06/20 09:00 05/15/20 08:38 Aspirin (Ecotrin) 81 mg DAILY PO 05/06/20 09:00 05/07/20 11:05 DC 05/07/20 09:01 Baclofen (Lioresal) 5 mg TID PO 05/05/20 16:00 05/15/20 08:38 Calcium Carbonate (Oscal) 500 mg DAILY PO 05/12/20 09:00 05/15/20 08:37 Calcium Carbonate (Tums) 500 mg DAILY PRN PO INDIGESTION 05/05/20 12:30 05/12/20 16:50 Docusate Sodium (Colace) 200 mg BID PO 05/05/20 21:00 05/15/20 08:38 Fluticasone Propionate (Flonase 0.05% Nasal [place]) 2 spray DAILY PRN NARES CONGESTION 05/05/20 12:30 05/14/20 05:35 Home Med (Med Rec Complete!) ASDIRECTED XX 05/05/20 18:45 05/05/20 18:36 DC Hydralazine HCl (Apresoline) 10 mg DAILYPRN PRN PO elevated S BP >180 05/05/20 17:15 Lactobacillus Acidophilus (Bacid) 1 ea TID PO 05/05/20 16:00 05/15/20 08:38 Levofloxacin (Levaquin) 500 mg DAILY@06 PO 05/06/20 06:00 05/10/20 08:11 DC 05/10/20 06:13 Losartan Potassium (Cozaar) 25 mg DAILY PO 05/06/20 09:00 05/15/20 08:37 Metformin HCl (Glucophage Xr) 500 mg QHS PO 05/12/20 21:00 05/14/20 21:17 Multivitamins (Theragram-M) 1 tab DAILY PO 05/06/20 09:00 05/05/20 14:44 DC Multivitamins (Theragram-M) 1 tab DAILY PO 05/06/20 09:00 05/15/20 08:38 Omeprazole (PriLOSEC) 20 mg DAILY PO 05/06/20 09:00 05/05/20 14:44 DC Omeprazole (PriLOSEC) 20 mg DAILY PO 05/06/20 09:00 05/15/20 08:38 Phenazopyridine HCl (Pyridium) 100 mg BID PO 05/09/20 09:00 05/12/20 08:59 DC 05/11/20 21:08 Polyethylene Glycol (Miralax) 1 pkt DAILY PRN PO CONSTIPATION 05/05/20 12:30 05/05/20 14:43 DC Polyethylene Glycol (Miralax) 1 pkt DAILY PRN PO CONSTIPATION 05/05/20 12:30 05/15/20 08:44 Polyethylene Glycol (Miralax) 1 pkt DAILYPRN PRN PO CONSTIPATION 05/05/20 12:30 05/05/20 14:44 DC Rivaroxaban (Xarelto) 2.5 mg BID PO 05/05/20 21:00 05/05/20 14:45 DC Rivaroxaban (Xarelto) 2.5 mg BID PO 05/05/20 21:00 05/07/20 17:08 DC 05/07/20 09:02 Rivaroxaban (Xarelto) 2.5 mg BID@0600,1800 PO 05/13/20 18:00 05/15/20 05:55 Rivaroxaban (Xarelto) 2.5 mg BID@08,18 PO 05/13/20 18:00 05/13/20 18:25 DC Rivaroxaban (Xarelto) 10 mg DAILY@18 PO 05/12/20 18:00 05/13/20 17:54 DC 05/12/20 16:50 Tamsulosin HCl (Flomax) 0.4 mg BID PO 05/10/20 09:00 05/15/20 08:38 Tamsulosin HCl (Flomax) 0.4 mg DAILY PO 05/08/20 09:00 05/10/20 07:22 DC 05/09/20 09:53 Vitamin D (Vitamin D) 2,000 units QHS PO 05/05/20 21:00 05/14/20 21:18 JING AKHTAR MD May 15, 2020 09:56
[2020-05-15 11:56] LABS: APPEARANCE, URINE HAZY (CLEAR); BACTERIA, URINE AUTO 1+ (NEGATIVE); BILIRUBIN, URINE AUTO NEGATIVE (NEGATIVE); BLOOD, URINE BLOOD 1+ (NEGATIVE); COLOR, URINE YELLOW (YELLOW); GLUCOSE, URINE (UA) AUTO NEGATIVE (NEGATIVE); KETONE, URINE AUTO NEGATIVE (NEGATIVE); LEUKOCYTE ESTERASE, URINE AUTO NEGATIVE (NEGATIVE); MUCUS, URINE SMALL (NEGATIVE); NITRITE, URINE AUTO NEGATIVE (NEGATIVE); PROTEIN, URINE AUTO NEGATIVE (NEGATIVE); RBC, URINE AUTO 8 /HPF (0-3); SQUAMOUS EPITHELIAL CELL UR AU 0 /HPF (0-6); UROBILINOGEN, URINE AUTO 0.2 mg/dL (0.0-2.0); WBC, URINE AUTO 2 /HPF (0-3)
--- NOTE | 2020-05-15 12:59 | IPNPDOC ---
Text Note Date of Service The patient was seen on 05/15/20. NOTE Subjective: No any acute events overnight. Patient denies fever, chills, nausea, vomiting, diarrhea or dysuria. Patient stated that he would like to continue the dose of xarelto which was prescribed by PCP. Objective: GENERAL APPEARANCE: NAD HEENT: no scleral icterus, no JVD, EOMI CARDIOVASCULAR: S1S2 LUNGS: CTA ABDOMEN: soft & not tender w palpitation MUSCULOSKELETAL: no cyanosis, no swelling INTEGUMENT: no generalized palor NEUROLOGICAL: follows commands, speech not dysarthric Assessment and plan: 75 year-old gentleman with 30 year history of multiple sclerosis who presented status post laparoscopic repair of umbilical hernia 04/28/2020 with complications of UTI, possible pneumonia, profound hematuria related to Mijares placement in presence of anticoagulation for prior history of arterial thrombosis. Hematuria recurred over weekend, abating now off anticoagulation. Levaquin ended. He is currently medically stable and has begin comprehensive rehabilitation. Hematuria likely 2/2 to trauma s/p mijares catheter placement, on xarelto and ASA. Resolved. Resolved UTI , Enterobacter cloacae Patient completed course of antibiotics HCAP Resolved, patient completed course of antibiotics Urinary retention likely 2/2 to neurogenic bladder 2/2 MS and BPH -Discussed with Dr. Fofana (urology) who believes, since patient has been on flomax this hospitalization, it is likely that MS is causing continued retention. -C/w mijares catheter, voiding trial on 05/08/20. -C/w flomax Weakness likely 2/2 to acute infection above -PT/OT History of arterial thrombosis -D/violetta AC previously to hematuria -Continue with xarelto Diabetes -BS controlled -Sliding scale insulin coverage. -C/w metformin for now. Multiple sclerosis (MS). -PT/OT Recent umbilical hernia repair. -Surgical site looks clean VS,Fishbone, I+O VS, Fishbone, I+O Vital Signs Date Time Temp Pulse Resp B/P (MAP) Pulse Ox O2 Delivery O2 Flow Rate FiO2 05/15/20 08:37 119/69 05/15/20 05:51 97.7 91 18 97 Room Air I&O- Last 24 Hours up to 6 AM 05/15/20 06:00 Intake Total 1100 ml Output Total 1250 ml Balance -150 ml DRORYLEEHIDONTE Gamez DO May 15, 2020 12:59
[2020-05-15 14:00] VITALS: BP 138/80
[2020-05-15 20:00] VITALS: BP 141/76
[2020-05-15] MEDS: metFORMIN XR 500MG TAB *GLUCOPHAGE XR PO SCH (20:50)
[2020-05-15] MEDS: VITAMIN D 1,000 INTERNATIONAL UNITS TABLET PO SCH (20:50)
[2020-05-16] MEDS: RIVAROXABAN 10 MG TAB (XARELTO) PO SCH (05:20)
[2020-05-16 06:00] VITALS: BP 131/72
[2020-05-16] MEDS: IPRATROPIUM 0.5MG/ALBUTEROL 2.5MG INH SOL UD 3ML (DUONEB) NEB SCH (07:31)
[2020-05-16] MEDS: BACLOFEN 5MG PER 1/2 TABLET PO SCH (10:30)
[2020-05-16] MEDS: ASCORBIC ACID 500 MG TAB PO SCH (10:31)
[2020-05-16] MEDS: DOCUSATE SODIUM 100 MG CAP PO SCH (10:31)
[2020-05-16] MEDS: LACTOBACILLUS ACIDOPHILUS CAP (BACID) PO SCH (10:31)
[2020-05-16] MEDS: OMEPRAZOLE 20 MG CAP PO SCH (10:31)
[2020-05-16 10:32] VITALS: BP 140/70
[2020-05-16] MEDS: TAMSULOSIN 0.4 MG CAP PO SCH (10:32)
[2020-05-16] MEDS: MULTIVITAMINS/MINERALS THERAP 1 TAB PO SCH (10:32)
[2020-05-16] MEDS: OYSTER SHELL CALCIUM 500 MG TAB PO SCH (10:32)
[2020-05-16] MEDS: LOSARTAN 25 MG TAB PO SCH (10:32)
[2020-05-16] MEDS: MIRALAX *UNIT DOSE* 17GM PACKET PO PRN (10:38)
--- NOTE | 2020-05-16 11:42 | DS.PDOC ---
PM&R Discharge Summary Pay Clerk Discharge Note DATE OF ADMISSION: May 05, 2020 at 14:00 DATE OF DISCHARGE: 05.16.2020 DISCHARGE DIAGNOSES: Status post laparoscopic repair of strangulated umbilical hernia 04/28/2020 MS with 30 year disability predominantly left radha-and bilateral lower extremity paresis with coordination, balance and some visual deficits Neurogenic bladder. Hematuria with prior cystoscopy 2018 noted for atypical cells in the bladder reported negative cytology on subsequent evaluation UTI. Pneumonia Type 2 diabetes, well controlled. Fatty liver. Hypertension. Hypertensive heart disease. Obstructive sleep apnea. Vitamin D deficiency. Hemochromatosis. 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 Previously managed on warfarin. Status post cellulitis right hand secondary to MRSA . [facility] Chronic infiltr[facility]. [facility] scans of the chest convexed 2007. Abdominal aortic aneurysm. 1019 3.7 cm Spontaneous hematoma, left thigh 1119. Gastritis 2018. Liver biopsy 2018 with persisting mass and cirrhosis Bladder abnormalitieshistory prior cystoscopy 2018 noted for atypical cells in the bladder reported negative cytology on subsequent evaluation about to undergo reassessment next week. PAST SURGICAL HISTORY: TURP 2009 Liver biopsy 09/02/2018 EGD 2019 Left inguinal hernia repair 05/2019 Umbilical hernia repair 04/28/2020 HOSPITAL COURSE: 75 year-old gentleman with 30 year history of multiple sclerosis who presented status post laparoscopic repair of umbilical hernia 04/28/2020 discharged home 1 who returned to hospital with complications of UTI, possible pneumonia, profound hematuria related to Urban placement in presence of anticoagulation for prior history of arterial thrombosis. Admitted to ARU 05.05, had episode of hematuria over 1st weekend with resumption of xarelto/ASA. Held. Attempted bladder training with cross clamping, Pyridium, Flomax bid, however un able to initiate or produce sufficient void to clear high PVRs. Completed course of Levaquin. Urban replaced and draining clear urine this week. No recurrence of hematuria with recent resumption of Xarelto on 05.13. DM, HTN remained well controlled throughout course on ARU. His autoimmune condition probably flared as a result of the recent series of events resulting in significant deterioration in function, increased weakness, less coordination and increased risk of falls, requiring intervention of physical therapy, occupational therapy, rehabilitative nursing and physiatry care coordination. REVIEW OF SYSTEMS: The following is a completed review of systems and has been reviewed. Review of systems otherwise unremarkable. PAIN: Patient self reports no pain. EYES: No recent vision changes. EARS, NOSE, & THROAT: No throat pain, or dysphagia, or rhinorrhea. CARDIOVASCULAR: Denies chest pain or palpitations. PULMONARY: Denies shortness of breath. GASTROINTESTINAL: Denies constipation/diarrhea. Healing surgical sites GENITOURINARY: .Urban, history noted for abnormal cystoscopy and some type of bladder wall lesion, reportedly non malignant MUSCULOSKELETAL: No new complaints. NEUROLOGICAL:. Long-standing MS. Probable tranverse myelitis. Generalized lower extremity greater than upper extremity, left greater than right sided weakness HEMATOLOGICAL: Status post hematuria, stable . SKIN: . Intact PSYCHIATRIC: Unremarkable. All other review of systems found to be negative. PHYSICAL EXAMINATION: VITAL SIGNS: Please see below. GENERAL: Pleasant and cooperative. Slow, appropriate speech. HEENT: Extraocular movements intact with some bobbing nystagmus on testing. CARDIOVASCULAR: Regular rate and rhythm I/ SM LUNGS: Clear to auscultation bilaterally. No wheezes. No rhonchi. ABDOMEN: Soft, mildly distended. Positive normal active bowel sounds, nontender. Healed port sites upper and lower quadrants. : Urban, clear yellow urine NEUROLOGICAL: Alert and oriented times three. Cranial nerves II through XII intact. Sensation intact. 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 FUNCTIONAL STATUS: Sit to stand with contact-guard assistance, ambulating from room to therapy gym, doing better with foot placement, using AFOS. Without AFO, he has decreased foot clearance, in general with or without it, when fatigued, worsens and requires frequent rest breaks. Using adaptive equipment for fine motor activities.Minimal to contact-guard assistance with showering activities for safety. Progressing to mod I for the ambulatory activities using walker, some mild cognitive issues and need for cues for consistent carryover noted. ALLERGIES: See below Reported atorvastatin and pravastatin cause myalgias, Copaxone, aggravated MS, Provigil, aggravated MS Nicho cause generalized weakness, gabapentin, syncope, amlodipine, cause swelling in the lower extremities MEDICATIONS: See Below. DISCHARGE DISPOSITION: Home to and with assistance of daughter. Follow up needed from PMD and specialty care including , GI, Neuro. GI -Status post Recent laparoscopic umbilical hernia repair 04/28/2020, prior left inguinal hernia repair May 2019, elevated LFTs, prior extensive workup with multiple diagnostic procedures noted for cirrhosis secondary to fatty liver, liver biopsy 05/25/2019 negative for malignancy with persisting mass. History of prior gastritis, possible hemachromatosis and noted a slight elevation of CEA for last May. This may need further follow-up as an outpatient. Respiratory- history of hospitalization for suspected pneumonia earlier this month and chronic infiltrates noted on chest x-ray -Follow up regarding possible stricture, bladder pathology (prior abnormal cells/plaque in bladder wall), other options for urine management vs senior care Urban. Neuro- Patient had generalized worsening of his paraparesis, probably, wind effect of underlying long-standing MS and aggravation or flare related to infectious pr ocess Vital Signs/I&O Vital Sign - Last 24 Hours 05/15/20 05/15/20 05/16/20 05/16/20 14:00 20:00 06:00 10:32 Temp 96.6 97.4 97.6 Pulse 90 82 86 Resp 17 18 18 B/P (MAP) 138/80 (99) 141/76 (97) 131/72 (91) 140/70 Pulse Ox 94 96 94 O2 Delivery Room Air Room Air Room Air I&O- Last 24 Hours up to 6 AM 05/16/20 06:00 Intake Total 1590 ml Output Total 2625 ml Balance -1035 ml Laboratory Data Labs 48H Laboratory Tests 05/15/20 11:38: Urine Color YELLOW, Urine Appearance HAZY, Urine pH 5.0, Urine Specific Harwood 1.010, Urine Protein NEGATIVE, Urine Glucose (Auto)(UA) NEGATIVE, Urine Ketones (Auto) NEGATIVE, Urine Blood 1+H, Urine Nitrite NEGATIVE, Urine Bilirubin NEGATIVE, Urine Urobilinogen 0.2, Urine Leukocyte Esterase (Auto) NEGATIVE, Urine WBC (Auto) 2, Urine RBC (Auto) 8H, Urine Hyaline Casts (Auto) 0, Urine Bacteria (Auto) 1+H, Urine Squamous Epithelial Cells 0, Urine Mucus (Auto) SMALL, Urine Sperm (Auto) Microbiology Microbiology 05/11/20 Urine Culture - Final, Complete 05/10/20 Urine Culture - Final, Complete Medications Medications Current Medications Medications (Trade) Dose Ordered Sig/Avelino Route PRN Reason Start Time Stop Time Status Last Admin Dose Admin Acetaminophen (Tylenol Tab) 650 mg Q4HP PRN PO MILD PAIN (PS 1-4) 05/05/20 12:30 05/05/20 14:44 DC Acetaminophen (Tylenol Tab) 650 mg Q4HP PRN PO MILD PAIN (PS 1-4) 05/05/20 12:30 Albuterol Sulfate (Proventil Neb) 2.5 mg Q6HP PRN NEB SOB/WHEEZING 05/09/20 07:45 Albuterol/ Ipratropium (Duoneb (Ipr 0.5mg/Alb 2.5mg)) 3 ml RBID NEB 05/09/20 20:00 05/16/20 07:31 Albuterol/ Ipratropium (Duoneb (Ipr 0.5mg/Alb 2.5mg)) 3 ml RQ6H NEB 05/05/20 14:00 05/09/20 07:46 DC 05/09/20 07:41 Ascorbic Acid (Vitamin C) 500 mg DAILY PO 05/06/20 09:00 05/16/20 10:31 Aspirin (Ecotrin) 81 mg DAILY PO 05/06/20 09:00 05/07/20 11:05 DC 05/07/20 09:01 Baclofen (Lioresal) 5 mg TID PO 05/05/20 16:00 05/16/20 10:30 Calcium Carbonate (Oscal) 500 mg DAILY PO 05/12/20 09:00 05/16/20 10:32 Calcium Carbonate (Tums) 500 mg DAILY PRN PO INDIGESTION 05/05/20 12:30 05/12/20 16:50 Docusate Sodium (Colace) 200 mg BID PO 05/05/20 21:00 05/16/20 10:31 Fluticasone Propionate (Flonase 0.05% Nasal [place]gett) 2 spray DAILY PRN NARES CONGESTION 05/05/20 12:30 05/14/20 05:35 Home Med (Med Rec Complete!) ASDIRECTED XX 05/05/20 18:45 05/05/20 18:36 DC Hydralazine HCl (Apresoline) 10 mg DAILYPRN PRN PO elevated S BP >180 05/05/20 17:15 Lactobacillus Acidophilus (Bacid) 1 ea TID PO 05/05/20 16:00 05/16/20 10:31 Levofloxacin (Levaquin) 500 mg DAILY@06 PO 05/06/20 06:00 05/10/20 08:11 DC 05/10/20 06:13 Losartan Potassium (Cozaar) 25 mg DAILY PO 05/06/20 09:00 05/16/20 10:32 Metformin HCl (Glucophage Xr) 500 mg QHS PO 05/12/20 21:00 05/15/20 20:50 Multivitamins (Theragram-M) 1 tab DAILY PO 05/06/20 09:00 05/05/20 14:44 DC Multivitamins (Theragram-M) 1 tab DAILY PO 05/06/20 09:00 05/16/20 10:32 Omeprazole (PriLOSEC) 20 mg DAILY PO 05/06/20 09:00 05/05/20 14:44 DC Omeprazole (PriLOSEC) 20 mg DAILY PO 05/06/20 09:00 05/16/20 10:31 Phenazopyridine HCl (Pyridium) 100 mg BID PO 05/09/20 09:00 05/12/20 08:59 DC 05/11/20 21:08 Polyethylene Glycol (Miralax) 1 pkt DAILY PRN PO CONSTIPATION 05/05/20 12:30 05/05/20 14:43 DC Polyethylene Glycol (Miralax) 1 pkt DAILY PRN PO CONSTIPATION 05/05/20 12:30 05/16/20 10:38 Polyethylene Glycol (Miralax) 1 pkt DAILYPRN PRN PO CONSTIPATION 05/05/20 12:30 05/05/20 14:44 DC Rivaroxaban (Xarelto) 2.5 mg BID PO 05/05/20 21:00 05/05/20 14:45 DC Rivaroxaban (Xarelto) 2.5 mg BID PO 05/05/20 21:00 05/07/20 17:08 DC 05/07/20 09:02 Rivaroxaban (Xarelto) 2.5 mg BID@0600,1800 PO 05/13/20 18:00 05/16/20 05:20 Rivaroxaban (Xarelto) 2.5 mg BID@08,18 PO 05/13/20 18:00 05/13/20 18:25 DC Rivaroxaban (Xarelto) 10 mg DAILY@18 PO 05/12/20 18:00 05/13/20 17:54 DC 05/12/20 16:50 Tamsulosin HCl (Flomax) 0.4 mg BID PO 05/10/20 09:00 05/16/20 10:32 Tamsulosin HCl (Flomax) 0.4 mg DAILY PO 05/08/20 09:00 05/10/20 07:22 DC 05/09/20 09:53 Vitamin D (Vitamin D) 2,000 units QHS PO 05/05/20 21:00 05/15/20 20:50 Scheduled Alpha Lipoic Acid (Alpha Lipoic Acid) 200 Mg Tab, 200 MG PO BID, (Reported) Ascorbic Acid (Vitamin C) 500 Mg Cap, 500 MG PO DAILY, (Reported) Calcium Carbonate (Calcium) 500 Mg Tablet, 500 MG PO DAILY, (Reported) Cholecalciferol (Vitamin D3) (Vitamin D3) 1,000 Unit Tablet, 2,000 UNITS PO QHS, (Reported) Docusate Sodium (Docusate Sodium) 100 Mg Capsule, 200 MG PO BID, (Reported) L.acidoph/L.bulg/B.bif/S.therm (Naomi-Bid Caplet) 1 Each Tablet, 1 TAB PO TID, (Reported) Losartan Potassium (Losartan Potassium) 25 Mg Tablet, 25 MG PO DAILY, (Reported) Metformin HCl (Metformin HCl ER) 500 Mg Tab.er.24h, 500 MG PO QHS, (Reported) Omeprazole (Omeprazole) 20 Mg Capsule.dr, 20 MG PO DAILY, (Reported) Rivaroxaban (Xarelto) 2.5 Mg Tablet, 2.5 MG PO BID, (Reported) Tamsulosin HCl (Flomax) 0.4 Mg Capsule, 0.4 MG PO QHS, (Reported) Scheduled PRN Ammonium Lactate (Ammonium Lactate) 12% Lotion, 1 DOSE TOP DAILY PRN for DRY SKIN, (Reported) APPLIES TO AREAS OF DRY SKIN Baclofen (Baclofen) 10 Mg Tablet, 5 MG PO TID PRN for MUSCLE SPASMS, (Reported) Fluticasone Propionate (Fluticasone Propionate) 16 Gm Blodgett.susp, 2 SPRAY NARES DAILY PRN for CONGESTION, (Reported) Polyethylene Glycol 3350 (Miralax) 119 Gm Powder, 17 GM PO BID PRN for CONSTIPATION, (Reported) dilute in 8 ounces of water or juice Allergies Coded Allergies: gabapentin (Verified Adverse Reaction, Intermediate, elevates MS symptoms, 04/25/20) modafinil (Verified Adverse Reaction, Intermediate, elevate MS symptoms, 04/25/20) Tixkpav-Lne-Mcn Reductase Inhibitor (Verified Adverse Reaction, Mild, "PASSES OUT", 04/25/20) glatiramer (copolymer 1) (Verified Adverse Reaction, Mild, weakness, 04/25/20) JING AKHTAR MD May 16, 2020 11:42
[2020-05-16 14:00] VITALS: BP 132/80
== END 2020-05-16 15:55 | disposition home health service (06) | DRG 91 ==
LOC: M PM&R 14:00
PROVIDERS: ADMIT Physical Medicine & Rehabilitation; ATTEND Physical Medicine & Rehabilitation
DX: R27.8 Other lack of coordination (principal); J18.9 Pneumonia, unspecified organism; N39.0 Urinary tract infection, site not specified; G82.20 Paraplegia, unspecified; R53.1 Weakness; E11.9 Type 2 diabetes mellitus without complications; K76.0 Fatty (change of) liver, not elsewhere classified; I11.9 Hypertensive heart disease without heart failure; G47.33 Obstructive sleep apnea (adult) (pediatric); E55.9 Vitamin D deficiency, unspecified; N31.9 Neuromuscular dysfunction of bladder, unspecified; E83.119 Hemochromatosis, unspecified; Z79.01 Long term (current) use of anticoagulants; Z79.84 Long term (current) use of oral hypoglycemic drugs; Z79.899 Other long term (current) drug therapy; Z88.8 Allergy status to other drugs, medicaments and biological substances; G35 Multiple sclerosis; R26.2 Difficulty in walking, not elsewhere classified; E78.5 Hyperlipidemia, unspecified

== ENCOUNTER → 2020-05-18 | Outpatient (REF) | payer MEDICARE | LOC: M SFHCADAM 16:21 | PROVIDERS: ATTEND Physician Assistant | DX: N39.0 Urinary tract infection, site not specified (principal) | CPT/HCPCS: 87088; 87186; 99496; G0463 ==

== ENCOUNTER 2020-10-20 02:17 | Emergency (ER) | payer MEDICARE ==
[~2020-10-20] VITALS: Ht 170.2 cm; Wt 78.1 kg
[~2020-10-20 02:17] MED LIST changes: +ASPI-569 PO; -ASPI81TAEC PO; -LISI-538 PO; +LISI20TA33 PO
[2020-10-20 03:32] LABS: BASO # 0.1 10^3/uL (0.0-0.2); BASO % 0.8 % (0.0-1.0); EOS # 0.1 10^3/uL (0.0-0.5); EOS % 2.3 % (0.0-3.0); HEMATOCRIT 39.2 % (42.0-52.0); HEMOGLOBIN 12.8 g/dl (13.5-17.5); LYMPH # 1.3 10^3/uL (1.5-5.0); LYMPH % 21.3 % (24.0-44.0); MEAN CORPUSCULAR HEMOGLOBIN 29.2 pg (27.0-33.0); MEAN CORPUSCULAR HGB CONC 32.7 g/dl (32.0-36.5); MEAN CORPUSCULAR VOLUME 89.5 fl (80.0-96.0); MONO # 0.6 10^3/uL (0.0-0.8); MONO % 10.2 % (2.0-8.0); NEUTROPHILS % 65.1 % (36.0-66.0); PLATELET COUNT, AUTOMATED 299 10^3/uL (150-450); RED BLOOD COUNT 4.38 10^6/uL (4.30-6.10); WHITE BLOOD COUNT 6.2 10^3/uL (4.0-10.0)
--- NOTE | 2020-10-20 03:40 | REP ---
INDICATION: CHEST PAIN COMPARISON: 05/01/2020 TECHNIQUE: Portable AP view of the chest FINDINGS: The mediastinum and cardiac silhouette are stable and within normal limits for portable technique. The lung chahal demonstrate mild chronic changes. Very subtle basilar airspace disease cannot be excluded and requires clinical correlation. There is no discrete focal consolidation. No obvious effusion or pneumothorax. Skeletal structures are stable. IMPRESSION: Chronic changes. Cannot exclude subtle bibasilar airspace disease. <Electronically signed by Modesto Hanna > 10/20/20 0330
[2020-10-20 04:04] LABS: BLOOD UREA NITROGEN 29 MG/DL (7-18); CALCIUM LEVEL 8.6 MG/DL (8.8-10.2); CARBON DIOXIDE LEVEL 28 MEQ/L (21-32); CHLORIDE LEVEL 104 MEQ/L (98-107); CK-MB VALUE MASS 5.3 NG/ML (<3.6); CPK CREATINE PHOSPHOKINASE 81 U/L (39-308); GLOMERULAR FILTRATION RATE > 60.0 (>42); GLUCOSE, FASTING 198 MG/DL (70-100); MB/CK RELATIVE INDEX 6.54 (< OR =4); POTASSIUM SERUM 4.3 MEQ/L (3.5-5.1); SODIUM LEVEL 137 MEQ/L (136-145); TROPONIN I 0.08 NG/ML (< 0.10)
[2020-10-20 09:15] LABS: CK-MB VALUE MASS 8.2 NG/ML (<3.6); MB/CK RELATIVE INDEX 9.65 (< OR =4); TROPONIN I 0.61 NG/ML (< 0.10)
[2020-10-20] MEDS ORDERED: LOSARTAN 25 MG TAB PO ONE (10:00)
[2020-10-20 10:10] LABS: INR 1.02; PROTHROMBIN TIME 13.6 SECONDS (12.5-14.3)
[2020-10-20 10:56] VITALS: BP 145/98
[2020-10-20 12:15] VITALS: BP 130/76
--- NOTE | 2020-10-20 20:58 | ECGEPIP ---
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
--- NOTE | 2020-10-20 21:05 | ECGEPIP ---
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
== END 2020-10-20 12:38 | disposition short-term general hospital (02) ==
LOC: EEVIPCON 02:17 → M ED 02:17
DX: I21.4 Non-ST elevation (NSTEMI) myocardial infarction (principal); E11.9 Type 2 diabetes mellitus without complications; I10 Essential (primary) hypertension; E78.5 Hyperlipidemia, unspecified; I71.4 Abdominal aortic aneurysm, without rupture; G35 Multiple sclerosis; Z86.14 Personal history of Methicillin resistant Staphylococcus aureus infection; Z79.899 Other long term (current) drug therapy; Z79.84 Long term (current) use of oral hypoglycemic drugs; Z88.8 Allergy status to other drugs, medicaments and biological substances; Z87.891 Personal history of nicotine dependence

== ENCOUNTER 2020-11-01 09:14 | Inpatient (IN) | payer MEDICARE ==
[~2020-11-01] VITALS: Ht 175.3 cm; Wt 83.6 kg
[~2020-11-01 09:14] MED LIST changes: +LACTOBACILLUS ACIDOPHILUS CAP (BACID) PO SCH; +NITROFURANTOIN (MACROBID) 100 MG CAP PO SCH
[2020-11-01 12:45] VITALS: BP 133/66
[2020-11-01] MEDS ORDERED: LIDO5DIS41 TD (12:46)
[2020-11-01] MEDS ORDERED: METO25TA4 PO (12:46)
[2020-11-01] MEDS ORDERED: RAMI1CAP21 PO (12:46)
[2020-11-01] MEDS ORDERED: MELATAB7 PO (12:46)
[2020-11-01] MEDS ORDERED: ASPI325T48 PO (12:46)
[2020-11-01] MEDS ORDERED: ENOX40IN3 SC (12:46)
[2020-11-01] MEDS ORDERED: BISA10SU PR (12:46)
[2020-11-01] MEDS ORDERED: ASCO500T PO (12:46)
[2020-11-01] MEDS ORDERED: FERR1TAB8 PO (12:46)
[2020-11-01] MEDS ORDERED: FOLI1TAB11 PO (12:46)
[2020-11-01] MEDS ORDERED: BACL10TA2 PO ×2 (12:46→12:53)
[2020-11-01] MEDS ORDERED: ATOR40TA75 PO (12:48)
[2020-11-01] MEDS ORDERED: FAMO20TA PO (12:51)
[2020-11-01] MEDS ORDERED: ACET1TAB55 PO (12:54)
--- NOTE | 2020-11-01 12:57 | HPEPDOC ---
Roller Cleaner Note DATE OF ADMISSION: 11-01-20 DATE OF SERVICE: 11-01-20 TIME OF ADMISSION: Please refer to physician's admission order. SOURCE OF ADMISSION INFORMATION: [facility] record and patient CHIEF COMPLAINT: s/p CABG HISTORY OF PRESENT ILLNESS: 75M pmh MS, urinary retention with neurogenic bladder and chronic Mijares on macrobid, arterial thrombosis s/p TPA of LLE 2008 and 2009 in [place] on Xarelto, liver lesion, HTN, ROCHELLE, AAA, presented to [facility] on 10-20-20 for NSTEMI amd underwent cardiac catheterization showing triple vessel disease. He was started on heparin drip and ASA, his Xarelto discontinued, with ECHO showing grade 2 diastolic dysfunction. Cardiac surgery then performed CABG x2 without complication and he was monitored post-operatively in the ICU. His chest tubes were removed, he required diuresis, and was noted to have post-op anemia for wh ich he was started on iron, vitamin C, and folic acid. He was instructed to follow modified sternal precautions given his weakness in setting of MS, evaluated by therapy and found to have mobility and ADL impairments, deemed medically appropriate for discharge to ARU. REVIEW OF SYSTEMS: The following is a completed review of systems and has been reviewed. Review of systems otherwise unremarkable. PAIN: Patient self reports no pain EYES: No recent vision changes EARS, NOSE, & THROAT: No throat pain, or dysphagia, or rhinorrhea CARDIOVASCULAR: Denies chest pain or palpitations PULMONARY: Denies shortness of breath GASTROINTESTINAL: Denies constipation/diarrhea GENITOURINARY: +mijares MUSCULOSKELETAL: generalized weakness NEUROLOGICAL:+bilat LE paresis HEMATOLOGICAL: +anemia SKIN: RLE surgical incision PSYCHIATRIC: Unremarkable All other review of systems found to be negative. PAST SURGICAL HISTORY: As per HPI and ,Transurethral resection of the prostate (TURP) 03/2009, Liver biopsy 05/2019, Left inguinal hernia repair 05/2019, Umbilical hernia repair 04/2020, Cystoscopy done 04/2019 FAMILY HISTORY: cardiac and DM ALLERGIES: Please see below. MEDICATIONS: Please see below. DIET: consistent carb, 2g sodium, fluid restrict PHYSICAL EXAMINATION: VITAL SIGNS: Please see below. GENERAL: Pleasant and cooperative. No acute distress. HEENT: PERRL. Extraocular movements intact. Clear conjunctiva CARDIOVASCULAR: Regular rate and rhythm. No murmurs, rubs, or gallops, sternal incision c/d/i LUNGS: Clear to auscultation bilaterally. No wheezes. No rhonchi ABDOMEN: Soft, nontender, mildly distended. Positive bowel sounds. Normal active bowel sounds NEUROLOGICAL: Alert and oriented times three. Cranial nerves II through XII grossly intact. Sensation grossly intact] EXTREMITIES: 4+\\5 strength bilateral upper extremities. 3/5 bilat hip flexors and knee extension 2/5 bilat DF +RLE edema SKIN:sternal incision with dermabond- c/d/i LABORATORY DATA: Please see below. IMAGING:Imaging documentation personally reviewed by record FUNCTIONAL STATUS: Premorbid: Mod-I for functional transfers from wheelchair level, able to ambulate short distances with supervision, requiring assistance with bathing and toileting On Admission: Mod assist for bed mobility, functional transfers, toileting, dressing, ambulation GOALS: Mod-I for bed mobility, functional transfers, toileting, dressing, ambulation short distances ASSESSMENT:75-year-old M with past medical history of MS who presents status post CABG x2 PLAN: 1. Rehab-PT/OT advance mobility and ADLs, strengthen/stretch/maintain ROM all 4limbs 2. Neuro- hx of MS c/u baclofen, energy consevration s/p new cardiac procedure 3. CArdiac- s/p CABG x2 10-20-[address] Palafox, on ASA 325mg daily- modified sternal precautions -hx of LE arterial thrombus s/p tpa in 2008 on Xarelto recently d/c'd at [facility] will f/u on able to restart from cardiac standpoint - diastolic CHF- daily weight, fluid restrict, will consider lasix - HTN- c/u BP meds - HLD- statin -medicine consulted to assist in overall mangement 4. Resp- hx of ROCHELLE nocturnal 02 -monitor for infection 5. endo- hx of DM c/u metformin and ISS 6. DVT ppx- heparin and teds 7. GI ppx- omeprazole 8. - patient scheduled for mijares change 11-02-20, will restart macrobid prior to changing mijares 9. Pain- tylenol prn and lidoderm patch 10. Dispo- TBD POST ADMISSION PHYSICIAN EVALUATION: Medical and functional status: Description of medical status, medical assessmen t: As above. Rehabilitation diagnosis and current and prior cold morbid medical conditions as above. Risk of complications and plans to mitigate them as above. Description of functional status current status is as above. Prior status as above. Status compared to preadmission: There are no clinically significant differences between the patient's current status and the information described on the preadmission screening document. Treatment plan anticipated: Treatment plan is as described above. Required disciplines including physical therapy, occupational therapy, others as noted above Intensity of services: 3 hours a day, 6 days a week. Special considerations: There are no specific special or safety considerations that would likely preclude immediate implementation of an intensive reha bilitation program or subsequently influence the plan of care. ATTESTATION: Considering all the information above, it is my best judgment that this patient requires intensive rehabilitation therapy as described above and an inpatient hospital environment due to the complexity of nursing, medical, and rehabilitation needs required by the patient. Furthermore, this patient can reasonably be expected to participate in an benefit from an inpatient rehabilitation stay with an interdisciplinary team approach to the delivery of rehabilitation care under the direction and supervision of rehabilitation physician. PROGNOSIS: Excellent ESTIMATED LENGTH OF STAY:7-10 days. PROJECTED DISCHARGE DESTINATION: Home with family support and any durable medical equipment required to increase functional safety and mobility. TIME SPENT COUNSELING AND COORDINATING INITIAL CARE: Greater than 70 minutes. Vital Signs Vital Sign - Last 24 Hours 11/01/20 12:45 Temp 96.7 Pulse 74 Resp 18 B/P (MAP) 133/66 (88) Pulse Ox 100 O2 Delivery Room Air Laboratory Data Labs 24H Laboratory Tests 2 11/01/20 12:42: Bedside Glucose (Misc Panel) 113H FSBS Laboratory Tests Test 11/01/20 12:42 Range/Units Bedside Glucose (Misc Panel) 113 83-110 MG/DL Home Medications Scheduled Acetaminophen (Acetaminophen) 325 Mg Tablet, 650 MG PO QID, (Reported) Alpha Lipoic Acid (Alpha Lipoic Acid) 200 Mg Tab, 200 MG PO BID, (Reported) Ascorbic Acid (Ascorbic Acid) 500 Mg Tablet, 500 MG PO DAILY, (Reported) Aspirin (Aspirin EC) 325 Mg Tablet.dr, 325 MG PO DAILY, (Reported) Atorvastatin Calcium (Atorvastatin Calcium) 40 Mg Tablet, 40 MG PO QHS, (Reported) START 11/01/20 [facility] Baclofen (Baclofen) 10 Mg Tablet, 10 MG PO QHS, (Reported) Baclofen (Baclofen) 10 Mg Tablet, 5 MG PO BID, (Reported) Calcium Carbonate (Calcium) 500 Mg Tablet, 500 MG PO DAILY, (Reported) Cholecalciferol (Vitamin D3) (Vitamin D3) 1,000 Unit Tablet, 1,000 UNITS PO QHS, (Reported) Docusate Sodium (Docusate Sodium) 100 Mg Capsule, 200 MG PO BID, (Reported) Enoxaparin Sodium (Enoxaparin Sodium) 40 Mg/0.4 Ml Syringe, 40 MG SC DAILY, (Reported) STARTED AT [facility], END DATE 11/26/20 Famotidine (Famotidine) 20 Mg Tablet, 20 MG PO BID, (Reported) Ferrous Sulfate (Ferrous Sulfate) 325 Mg Tablet, 325 MG PO BIDWM, (Reported) Fluticasone Propionate (Fluticasone Propionate) 16 Gm [place].susp, 1 SPRAY NARES DAILY, (Reported) Folic Acid (Folic Acid) 1 Mg Tablet, 1 MG PO DAILY, (Reported) Lidocaine (Lidoderm) 5% Adh..patch, 1 PATCH TD DAILY, (Reported) APPLIED TO CHEST Melatonin/Pyridoxine (Melatonin 5 mg Tablet) 1 Each Tablet, 5 MG PO QHS, (R eported) Metformin HCl (Metformin HCl ER) 500 Mg Tab.er.24h, 500 MG PO QHS, (Reported) Metoprolol Tartrate (Metoprolol Tartrate) 25 Mg Tablet, 25 MG PO BID, (Reported) Omeprazole (Omeprazole) 20 Mg Capsule.dr, 20 MG PO DAILY, (Reported) Ramipril (Ramipril) 1.25 Mg Capsule, 1.25 MG PO DAILY, (Reported) Scheduled PRN Ammonium Lactate (Ammonium Lactate) 12% Lotion, 1 DOSE TOP DAILY PRN for DRY SKIN, (Reported) APPLIES TO AREAS OF DRY SKIN Bisacodyl (Bisacodyl) 10 Mg Supp.rect, 10 MG NV DAILY PRN for CONSTIPATION, (Reported) Polyethylene Glycol 3350 (Miralax) 119 Gm Powder, 17 GM PO BID PRN for CONSTIPATION, (Reported) dilute in 8 ounces of water or juice Allergies Coded Allergies: gabapentin (Verified Adverse Reaction, Intermediate, elevates MS symptoms, 10/20/20) modafinil (Verified Adverse Reaction, Intermediate, elevate MS symptoms, 10/20/20) Fqliaah-Hqb-Ujk Reductase Inhibitor (Verified Adverse Reaction, Mild, "PASSES OUT", 10/20/20) glatiramer (copolymer 1) (Verified Adverse Reaction, Mild, weakness, 10/20/20) A-FIB/CHADSVASC A-FIB History Current/History of A-Fib/PAF?: No Current PO Anticoag Therapy: No KRISTINA CADENA MD Nov 01, 2020 12:57
[2020-11-01 14:00] VITALS: BP 110/67
[2020-11-01] MEDS: CALCIUM CARB SUSP 1250MG/5ML UNIT DOSE CUP PO SCH (14:42)
[2020-11-01] MEDS: BACLOFEN 5MG PER 1/2 TABLET PO SCH (14:42)
[2020-11-01] MEDS: VITAMIN D 1,000 INTERNATIONAL UNITS TABLET PO SCH (14:43)
[2020-11-01] MEDS: POLYVINYL ALCOHOL OPHTH SOLN 15 ML(LIQUITEARS) OU SCH ×2 (16:41→21:37)
[2020-11-01] MEDS: REMEDY PHYTOPLEX Z-GUARD PASTE 113GM TUBE (FROM STOREROOM PRODUCT) TOP SCH ×2 (16:41→21:41)
[2020-11-01] MEDS: ACETAMINOPHEN 500 MG TAB PO SCH ×2 (16:42→21:40)
[2020-11-01] MEDS: metFORMIN XR 500MG TAB *GLUCOPHAGE XR PO SCH (17:05)
[2020-11-01 20:15] VITALS: BP 123/62
[2020-11-01] MEDS: IPRATROPIUM 0.06% NASAL SPRAY 15 ML (ATROVENT) SCH (21:00)
[2020-11-01] MEDS: FLUTICASONE PROP 0.05% NASAL SPRAY 16 GM (FLONASE) NARES SCH (21:00)
[2020-11-01] MEDS: FERROUS SULFATE 325MG TAB PO SCH (21:37)
[2020-11-01] MEDS: METOPROLOL TART 25 MG TABLET PO SCH (21:38)
[2020-11-01] MEDS: DOCUSATE SODIUM 100MG CAPSULE PO SCH (21:38)
[2020-11-01] MEDS: BACLOFEN 10 MG TAB PO SCH (21:38)
[2020-11-01] MEDS: ATORVASTATIN 20 MG TAB PO SCH (21:39)
[2020-11-01] MEDS: LIDOCAINE 5% (LIDODERM) PATCH TD SCH (21:40)
[2020-11-01] MEDS: SENNA 8.6 MG TAB (SENOKOT) PO SCH (21:43)
[2020-11-02 05:59] VITALS: BP 107/65
[2020-11-02 07:58] LABS: BASO # 0.1 10^3/uL (0.0-0.2); BASO % 0.6 % (0.0-1.0); EOS # 0.6 10^3/uL (0.0-0.5); EOS % 6.4 % (0.0-3.0); HEMATOCRIT 29.6 % (42.0-52.0); HEMOGLOBIN 9.3 g/dl (13.5-17.5); LYMPH # 1.4 10^3/uL (1.5-5.0); MEAN CORPUSCULAR HEMOGLOBIN 29.4 pg (27.0-33.0); MEAN CORPUSCULAR HGB CONC 31.4 g/dl (32.0-36.5); MEAN CORPUSCULAR VOLUME 93.7 fl (80.0-96.0); MONO # 0.7 10^3/uL (0.0-0.8); MONO % 7.3 % (2.0-8.0); NEUTROPHILS # 6.6 10^3/uL (1.5-8.5); NEUTROPHILS % 69.5 % (36.0-66.0); PLATELET COUNT, AUTOMATED 521 10^3/uL (150-450); RED BLOOD COUNT 3.16 10^6/uL (4.30-6.10); WHITE BLOOD COUNT 9.6 10^3/uL (4.0-10.0)
[2020-11-02 08:27] LABS: ALBUMIN 3.4 GM/DL (3.2-5.2); ALT/SGPT 106 U/L (12-78); BILIRUBIN,TOTAL 0.5 MG/DL (0.2-1.0); BLOOD UREA NITROGEN 29 MG/DL (7-18); CALCIUM LEVEL 8.9 MG/DL (8.8-10.2); CARBON DIOXIDE LEVEL 26 MEQ/L (21-32); CHLORIDE LEVEL 104 MEQ/L (98-107); CREATININE FOR GFR 1.16 MG/DL (0.70-1.30); GLOMERULAR FILTRATION RATE > 60.0 (>42); GLUCOSE, FASTING 155 MG/DL (70-100); POTASSIUM SERUM 4.5 MEQ/L (3.5-5.1); SODIUM LEVEL 138 MEQ/L (136-145); TOTAL PROTEIN 7.7 GM/DL (6.4-8.2)
[2020-11-02] MEDS: BACLOFEN 5MG PER 1/2 TABLET PO SCH ×2 (08:36→14:57)
[2020-11-02] MEDS: CALCIUM CARB SUSP 1250MG/5ML UNIT DOSE CUP PO SCH (08:36)
[2020-11-02] MEDS: DOCUSATE SODIUM 100MG CAPSULE PO SCH ×2 (08:36→21:13)
[2020-11-02] MEDS: OMEPRAZOLE 20 MG CAP PO SCH (08:37)
[2020-11-02] MEDS: LACTOBACILLUS ACIDOPHILUS CAP (BACID) PO SCH (08:37)
[2020-11-02] MEDS: ramipriL 1.25 MG CAP PO SCH (08:37)
[2020-11-02] MEDS: ASCORBIC ACID 500 MG TAB PO SCH (08:38)
[2020-11-02] MEDS: VITAMIN D 1,000 INTERNATIONAL UNITS TABLET PO SCH (08:38)
[2020-11-02] MEDS: METOPROLOL TART 25 MG TABLET PO SCH ×2 (08:39→21:14)
[2020-11-02] MEDS: ASPIRIN ENTERIC 325 MG TAB PO SCH (08:39)
[2020-11-02] MEDS: NITROFURANTOIN (MACROBID) 100 MG CAP PO SCH (08:39)
[2020-11-02] MEDS: FERROUS SULFATE 325MG TAB PO SCH ×2 (08:39→21:14)
[2020-11-02] MEDS: ACETAMINOPHEN 500 MG TAB PO SCH ×3 (08:40→21:13)
[2020-11-02] MEDS: FOLIC ACID 1 MG TAB PO SCH (08:41)
[2020-11-02] MEDS: HEPARIN SOD (PORCINE) 5000UNITS/ML 1ML VIAL/SYRINGE SC SCH ×2 (08:41→21:12)
[2020-11-02] MEDS: REMEDY PHYTOPLEX Z-GUARD PASTE 113GM TUBE (FROM STOREROOM PRODUCT) TOP SCH ×3 (08:42→21:17)
[2020-11-02] MEDS: IPRATROPIUM 0.06% NASAL SPRAY 15 ML (ATROVENT) SCH ×3 (08:42→21:15)
[2020-11-02] MEDS: FLUTICASONE PROP 0.05% NASAL SPRAY 16 GM (FLONASE) NARES SCH ×3 (08:42→21:15)
[2020-11-02] MEDS: POLYVINYL ALCOHOL OPHTH SOLN 15 ML(LIQUITEARS) OU SCH ×3 (08:43→21:15)
--- NOTE | 2020-11-02 10:43 | IPNPDOC ---
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 REVIEW OF SYSTEMS: The following is a completed review of systems and has been reviewed. Review of systems otherwise unremarkable. PAIN: Patient self reports no pain EYES: No recent vision changes EARS, NOSE, & THROAT: No throat pain, or dysphagia, or rhinorrhea CARDIOVASCULAR: Denies chest pain or palpitations PULMONARY: Denies shortness of breath GASTROINTESTINAL: Denies constipation/diarrhea GENITOURINARY: +mijares MUSCULOSKELETAL: generalized weakness NEUROLOGICAL:+bilat LE paresis HEMATOLOGICAL: +anemia SKIN: RLE surgical incision PSYCHIATRIC: Unremarkable All other review of systems found to be negative. PHYSICAL EXAMINATION: VITAL SIGNS: Please see below. GENERAL: Pleasant and cooperative. No acute distress. HEENT: PERRL. Extraocular movements intact. Clear conjunctiva CARDIOVASCULAR: Regular rate and rhythm. No murmurs, rubs, or gallops, sternal incision c/d/i LUNGS: Clear to auscultation bilaterally. No wheezes. No rhonchi ABDOMEN: Soft, nontender, mildly distended. Positive bowel sounds. Normal active bowel sounds NEUROLOGICAL: Alert and oriented times three. Cranial nerves II through XII grossly intact. Sensation grossly intact] EXTREMITIES: 4+\\5 strength bilateral upper extremities. 3/5 bilat hip flexors and knee extension 2/5 bilat DF +RLE edema SKIN:sternal incision with dermabond- c/d/i ASSESSMENT:75-year-old M with past medical history of MS who presents status post CABG x2 PLAN: 1. Rehab-PT/OT advance mobility and ADLs, strengthen/stretch/maintain ROM all 4limbs 2. Neuro- hx of MS c/u baclofen, energy conservation s/p new cardiac procedure 3. CArdiac- s/p CABG x2 10-20-[address] 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 Palafox's MANAGER SHAREPOINT who stated from a cardiac-surgery standpoint he does not need to be on Xarelto any longer but to further clarify with the [facility] clinic that has been monitoring this- will order Doppler today - diastolic CHF- daily weight, fluid restrict, will consider lasix - HTN- c/u BP meds - HLD- statin -medicine consulted to assist in overall mangement 4. Resp- hx of ROCHELLE nocturnal 02 -monitor for infection 5. endo- hx of DM c/u metformin and ISS 6. DVT ppx- heparin and teds 7. GI ppx- omeprazole 8. - change mijares 11-03-20, c/u prophylactic macrobid 9. Pain- tylenol prn and lidoderm patch 10. Dispo- TBD Allergies Coded Allergies: gabapentin (Verified Adverse Reaction, Intermediate, elevates MS symptoms, 10/20/20) modafinil (Verified Adverse Reaction, Intermediate, elevate MS symptoms, 10/20/20) Cbksvtf-Itb-Ugk Reductase Inhibitor (Verified Adverse Reaction, Mild, "PASSES OUT", 10/20/20) glatiramer (copolymer 1) (Verified Adverse Reaction, Mild, weakness, 10/20/20) Vital Signs Vital Signs Date Time Temp Pulse Resp B/P (MAP) Pulse Ox O2 Delivery O2 Flow Rate FiO2 11/02/20 08:39 84 107/65 11/02/20 05:59 98.4 18 96 Room Air Laboratory Data CBC/BMP Laboratory Tests 11/02/20 07:32 Labs 24H Laboratory Tests 2 11/01/20 12:42: Bedside Glucose (Misc Panel) 113H 11/01/20 16:47: Bedside Glucose (Misc Panel) 143H 11/01/20 19:56: Bedside Glucose (Misc Panel) 199H 11/02/20 07:32: Immature Granulocyte % (Auto) 1.2, Neutrophils (%) (Auto) 69.5H, Lymphocytes (%) (Auto) 15.0L, Monocytes (%) (Auto) 7.3, Eosinophils (%) (Auto) 6.4H, Basophils (%) (Auto) 0.6, Neutrophils # (Auto) 6.6, Lymphocytes # (Auto) 1.4L, Monocytes # (Auto) 0.7, Eosinophils # (Auto) 0.6H, Basophils # (Auto) 0.1, Nucleated Red Blood Cells % (auto) 0.0, Anion Gap 8, Glomerular Filtration Rate > 60.0, Calcium Level 8.9, Total Bilirubin 0.5, Aspartate Amino Transf (AST/SGOT) 83H, Alanine Aminotransferase (ALT/SGPT) 106H, Alkaline Phosphatase 324H, Total Protein 7.7, Albumin 3.4, Albumin/Globulin Ratio 0.8 Current Medications Current Medications Current Medications Medications (Trade) Dose Ordered Sig/Avelino Route PRN Reason Start Time Stop Time Status Last Admin Dose Admin Acetaminophen (Tylenol Tab) 1,000 mg TID PO 11/01/20 16:00 11/02/20 08:40 Artificial Tears ([place]wa Tears) 2 drop TID OU 11/01/20 16:00 11/02/20 08:43 Ascorbic Acid (Vitamin C) 500 mg DAILY PO 11/02/20 09:00 11/02/20 08:38 Aspirin (Ecotrin) 325 mg DAILY PO 11/02/20 09:00 11/02/20 08:39 Atorvastatin Calcium (Lipitor) 40 mg QHS PO 11/01/20 21:00 11/01/20 21:39 Baclofen (Lioresal) 5 mg BID@0800,1400 PO 11/01/20 14:00 11/02/20 08:36 Baclofen (Lioresal) 10 mg QHS PO 11/01/20 21:00 11/01/20 21:38 Calcium Carbonate (Calcium Carbonate) 1,250 mg DAILY PO 11/01/20 09:00 11/02/20 08:36 Docusate Sodium (Colace) 200 mg BID PO 11/01/20 21:00 11/02/20 08:36 Ferrous Sulfate (Ferrous Sulfate) 325 mg BID PO 11/01/20 21:00 11/02/20 08:39 Fluticasone Propionate (Flonase 0.05% Nasal [place]) 1 spray BID NARES 11/01/20 21:00 11/02/20 08:42 Folic Acid (Folic Acid) 1 mg DAILY PO 11/02/20 09:00 11/02/20 08:41 Heparin Sodium (Porcine) (Heparin) 5,000 units Q12H SC 11/02/20 09:00 11/02/20 08:41 Home Med (Med Rec Complete!) ASDIRECTED XX 11/01/20 12:55 11/01/20 12:58 DC Ipratropium [place] (Atrovent 0.06%) 2 spray BID NA 11/01/20 21:00 11/02/20 08:42 Lactobacillus Acidophilus (Bacid) 1 ea DAILY PO 11/01/20 09:00 11/01/20 19:54 DC Lactobacillus Acidophilus (Bacid) 1 ea DAILY PO 11/02/20 09:00 11/02/20 08:37 Lidocaine (Lidoderm Patch) 1 patch DAILY@2100 TD 11/01/20 21:00 11/01/20 21:40 Metformin HCl (Glucophage Xr) 500 mg DAILY@18 PO 11/01/20 18:00 11/01/20 17:05 Metoprolol Tartrate (Lopressor) 25 mg BID PO 11/01/20 21:00 11/02/20 08:39 Nitrofurantoin Monoh/Nitrofur Macro (Macrobid) 100 mg DAILY PO 11/01/20 09:00 11/01/20 19:54 DC Nitrofurantoin Monoh/Nitrofur Macro (Macrobid) 100 mg DAILY PO 11/02/20 09:00 11/02/20 08:39 Non-Formulary Medication ( See Comment Field Below ) REMOVE LIDODERM PATCH DAILY@0900 XX 11/02/20 09:00 11/02/20 08:43 Omeprazole (PriLOSEC) 20 mg DAILY PO 11/02/20 09:00 11/02/20 08:37 Polyethylene Glycol (Miralax) 1 pkt DAILY PRN PO CONSTIPATION 11/02/20 09:00 Ramipril (Altace) 1.25 mg DAILY PO 11/02/20 09:00 11/02/20 08:37 Senna (Senokot) 1 tab QHS PO 11/01/20 21:00 11/01/20 21:43 Vitamin D (Vitamin D) 1,000 units DAILY PO 11/01/20 09:00 11/02/20 08:38 KRISTINA CADENA MD Nov 02, 2020 10:43
--- NOTE | 2020-11-02 12:28 | HPEPDOC ---
[facility] Medical History & Physical Date of Admission Nov 01, 2020 Date of Service: Nov 02, 2020 Attending Physician: Desiree Zahng MD History and Physical MEDICAL H&P HISTORY OF PRESENT ILLNESS: Patient is a 75-year-old male with past mental history of coronary artery disease status post CABG, multiple sclerosis, diabetes mellitus, hypertension, obstructive sleep apnea, hyperlipidemia, liver cirrhosis who presented to [facility] acute rehabilitation unit for continued rehabilitation status post NSTEMI, recent CABG at [facility]. The patient was really transferred to [facility] for an STEMI and chest pain. Cardiac catheterization showed triple vessel disease. CABG was done on 10/26/2020 and he was followed closely by the cardiac surgical team. He was later sent to [facility] for continued rehabilitation on 11/01/20. REVIEW OF SYSTEMS: CONSTITUTIONAL: Denies unexplained weight gain or weight loss, loss of appetite, fever, night sweats EYES: Denies eye drainage, eye pain, visual changes, dry/irritated eye EARS, NOSE, MOUTH, THROAT: Denies difficulty hearing, ringing in ears, mouth sores, loose teeth, sore throat, facial numbness or pain NECK: Denies swollen glands CARDIOVASCULAR: Denies irregular heartbeat, racing heart, swelling of feet or legs, pain in legs with walking RESPIRATORY: Denies shortness of breath, night sweats, wheezing, sputum production, oxygen at home, coughing up blood, cough lasting > 1 month GASTROINTESTINAL: Denies abdominal pain, constipation, bloody stool, diarrhea, heartburn, nausea, vomiting GENITOURINARY: Denies painful urination, bloody urine, frequent urination, urgency, leaking urine, impotence MUSCULOSKELETAL: Denies joint pain, muscle pain, leg swelling INTEGUMENTARY: Denies rash, itching, new skin lesion, change in existing skin lesion, hair loss or increase, breast changes. NEUROLOGICAL: Denies headaches, dizziness, difficulty walking, numbness or tingling PSYCHIATRIC: Denies depression, anxiety, recurrent bad thoughts, mood swings, hallucinations PAST MEDICAL HISTORY: CAD with triple vessel disease s/p NSTEMI, CABG Severe multiple sclerosis (MS) for which he has been disabled for over 30 years Type 2 diabetes under excellent control. Fatty liver confirmed by ultrasound. Hypertensive heart disease. Hyperlipidemia with intolerance to statins. Obstructive sleep apnea. Vitamin B deficiency. Arterial thrombosis, left leg, 03/2009. Status post tPA. He was on warfarin until the DE, who manages him through the anticoagulation clinic, placed him on Xarelto 2.5 mg b.i.d. Cellulitis of the right hand secondary to methicillin-resistant Staphylococcus aureus (MRSA) 10/2009. Meningioma followed by the DE and reports he is asymptomatic. Neurogenic bladder from multiple sclerosis (MS). chronic infiltrates on CT scans of the chest going back to 06/2008. 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 Cystoscopy done 04/2019, for erythematous patches on the posterior wall of the bladder. Cytology showed atypical cells. Urinary infections, most recently Escherichia coli urinary tract infection (UTI) 04/2019. Abdominal aortic aneurysm that is small seen on CT scan of the abdomen and pelvis 04/1019, that was 3.7 cm. Spontaneous hematoma of the left thigh 05/2019, he was switched to Xarelto 07/2019. Gastritis on an esophagogastroduodenoscopy (EGD) from 05/2019. Liver biopsy done 05/2019, that did not show any malignancy. He has a persisting mass on his liver that has been negative to biopsy. Cirrhosis secondary to fatty liver confirmed by multiple imaging studies with no history of cirrhosis or hepatic encephalopathy. PAST SURGICAL HISTORY: CABG with [facility]G-OM, endoscopic vein harvest of right greater saphenous vein, sternal closure with JERALD plates 10/26/20 Arterial thrombosis, left leg, 03/2009. Transurethral resection of the prostate (TURP) 03/2009. Colonoscopy 03/2004, as well as 2007, and most recently 05/2019. Liver biopsy 05/2019. Esophagogastroduodenoscopy (EGD) 05/2019. Left inguinal hernia repair 05/2019. Umbilical hernia repair 04/2020. FAMILY HISTORY: Father had hypertension. Mother had diabetes. SOCIAL HISTORY: Quit smoking many years ago. No alcohol use. He is disabled from MS. He is . Full code ALLERGIES: Please see below. CURRENT MEDICATIONS: Please see below. PHYSICAL EXAMINATION: VS: Please see below CONSTITUTIONAL: No acute distress, resting comfortably, AAO x 3 EYES: PERRLA, EOM intact HENT, MOUTH: Normocephalic, atraumatic, moist mucous membranes, NECK: SUPPLE, no JVD, no lymphadenopathy, no carotid bruit CV: Regular rate and rhythm, S1S2 normal, no murmurs/rubs/gallops CHEST: Large substernal vertical scar, well healing, tender to touch around incision, no erythema RESPIRATORY: Clear to auscultation bilaterally, no rales/rhonchi/wheezes GI: BS positive in 4 quadrants, soft, nontender, nondistended, no rebound or guarding, no organomegaly : Deferred MUSCULOSKELETAL: Normal ROM. No cyanosis, clubbing, swelling, joint deformity, nonpitting extremity edema INTEGUMENTARY: RLE medial calf incision, appears well healing, otherwise Intact, no rashes, no lesions, no erythema NEUROLOGIC: Cranial Nerves II-XII are intact, no focal deficits PSYCHIATRIC: Mood and affect are normal LABORATORY DATA: Please see below IMAGING: None ASSESSMENT: 75-year-old male with past mental history of coronary artery disease status post CABG, multiple sclerosis, diabetes mellitus, hypertension, obstructive sleep apnea, hyperlipidemia, liver cirrhosis who presented to [facility] acute rehabilitation unit for continued rehabilitation status post NSTEMI, recent CABG at [facility]. PLAN: Physical deconditioning likely 2/2 to acute on chronic issues below -C/w PT/OT in ARU CAD with recent NSTEMI s/p CABG (10/26/20) -Denies chest pain, shortness of breath. Has mild chest tenderness -Lidocaine patch, ASA, BB, ACEi -F/u with cardiology as scheduled Severe multiple sclerosis (MS) -At baseline -C/w current medications DM type II -BS stable at 155 -Not currently on ISS, FS AC, consistent carb diet Fatty liver / ?cirrhosis / liver mass -Denies abdominal pain -AST/ALT mildly elevated -Monitor with routine CMP Hypertension -Stable -C/w current meds Hyperlipidemia -Intolerance to statins. Constipation -C/w current bowel regimen Obstructive sleep apnea -Not on CPAP/BiPAP Hx arterial thrombosis, left leg, 03/2009. -Previously on warfarin, Xarelto 2.5 mg b.i.d. -not currently on therapeutic AC Neurogenic bladder 2/2 to severe MS -Chronic indwelling mijares catheter -Per patient to change today Anemia likely multifactorial to KYREE, folic acid deficiency -No s/s of bleeding -C/w home ferrous sulfate BID -Routine CBCs Insomnia -Melatonin HS GERD -Famotidine, PPI DVT px -Enoxaparin SC DISPOSITION: Thank you kindly for this consult. Will continue to follow routinely and PRN. Vital Signs Vital Signs Date Time Temp Pulse Resp B/P (MAP) Pulse Ox O2 Delivery O2 Flow Rate FiO2 11/02/20 08:39 84 107/65 11/02/20 05:59 98.4 18 96 Room Air Laboratory Data Labs 24H Laboratory Tests 2 11/01/20 12:42: Bedside Glucose (Misc Panel) 113H 11/01/20 16:47: Bedside Glucose (Misc Panel) 143H 11/01/20 19:56: Bedside Glucose (Misc Panel) 199H 11/02/20 07:32: Immature Granulocyte % (Auto) 1.2, Neutrophils (%) (Auto) 69.5H, Lymphocytes (%) (Auto) 15.0L, Monocytes (%) (Auto) 7.3, Eosinophils (%) (Auto) 6.4H, Basophils (%) (Auto) 0.6, Neutrophils # (Auto) 6.6, Lymphocytes # (Auto) 1.4L, Monocytes # (Auto) 0.7, Eosinophils # (Auto) 0.6H, Basophils # (Auto) 0.1, Nucleated Red Blood Cells % (auto) 0.0, Anion Gap 8, Glomerular Filtration Rate > 60.0, Calcium Level 8.9, Total Bilirubin 0.5, Aspartate Amino Transf (AST/SGOT) 83H, Alanine Aminotransferase (ALT/SGPT) 106H, Alkaline Phosphatase 324H, Total Protein 7.7, Albumin 3.4, Albumin/Globulin Ratio 0.8 11/02/20 11:17: Bedside Glucose (Misc Panel) 133H CBC/BMP Laboratory Tests 11/02/20 07:32 Home Medications Scheduled Acetaminophen (Acetaminophen) 325 Mg Tablet, 650 MG PO QID Alpha Lipoic Acid (Alpha Lipoic Acid) 200 Mg Tab, 200 MG PO BID Ascorbic Acid (Ascorbic Acid) 500 Mg Tablet, 500 MG PO DAILY Aspirin (Aspirin EC) 325 Mg Tablet.dr, 325 MG PO DAILY Atorvastatin Calcium (Atorvastatin Calcium) 40 Mg Tablet, 40 MG PO QHS START 11/01/20 PER [facility] Baclofen (Baclofen) 10 Mg Tablet, 10 MG PO QHS Baclofen (Baclofen) 10 Mg Tablet, 5 MG PO BID Calcium Carbonate (Calcium) 500 Mg Tablet, 500 MG PO DAILY Cholecalciferol (Vitamin D3) (Vitamin D3) 1,000 Unit Tablet, 1,000 UNITS PO QHS Docusate Sodium (Docusate Sodium) 100 Mg Capsule, 200 MG PO BID Enoxaparin Sodium (Enoxaparin Sodium) 40 Mg/0.4 Ml Syringe, 40 MG SC DAILY STARTED AT [facility], END DATE 11/26/20 Famotidine (Famotidine) 20 Mg Tablet, 20 MG PO BID Ferrous Sulfate (Ferrous Sulfate) 325 Mg Tablet, 325 MG PO BIDWM Fluticasone Propionate (Fluticasone Propionate) 16 Gm [place].susp, 1 SPRAY NARES DAILY Folic Acid (Folic Acid) 1 Mg Tablet, 1 MG PO DAILY Lidocaine (Lidoderm) 5% Adh..patch, 1 PATCH TD DAILY APPLIED TO CHEST Melatonin/Pyridoxine (Melatonin 5 mg Tablet) 1 Each Tablet, 5 MG PO QHS Metformin HCl (Metformin HCl ER) 500 Mg Tab.er.24h, 500 MG PO QHS Metoprolol Tartrate (Metoprolol Tartrate) 25 Mg Tablet, 25 MG PO BID Omeprazole (Omeprazole) 20 Mg Capsule.dr, 20 MG PO DAILY Ramipril (Ramipril) 1.25 Mg Capsule, 1.25 MG PO DAILY Scheduled PRN Ammonium Lactate (Ammonium Lactate) 12% Lotion, 1 DOSE TOP DAILY PRN for DRY SKIN APPLIES TO AREAS OF DRY SKIN Bisacodyl (Bisacodyl) 10 Mg Supp.rect, 10 MG MA DAILY PRN for CONSTIPATION Polyethylene Glycol 3350 (Miralax) 119 Gm Powder, 17 GM PO BID PRN for CONSTIPATION dilute in 8 ounces of water or juice Allergies Coded Allergies: gabapentin (Verified Adverse Reaction, Intermediate, elevates MS symptoms, 10/20/20) modafinil (Verified Adverse Reaction, Intermediate, elevate MS symptoms, 10/20/20) Dyjailz-Ppy-Ozg Reductase Inhibitor (Verified Adverse Reaction, Mild, "PASSES OUT", 10/20/20) glatiramer (copolymer 1) (Verified Adverse Reaction, Mild, weakness, 10/20/20) A-FIB/CHADSVASC A-FIB History Current/History of A-Fib/PAF?: No Current PO Anticoag Therapy: No Age/Risk Factor Scoring CHADSVASC: CHADSVASC Response (Comments) Value Age Risk Factor Age >/= 75 years old 2 Gender Risk Factor Male 0 Hx of CHF No 0 Hx of HTN Yes 1 Hx of Stroke/TIA/or VTE No 0 Hx of Diabetes Yes 1 Hx of Vascular Disease Yes 1 Total 5 Treatment Treatment ordered: Other Other anticoagulant ordered: enoxaparin Desiree Zhang MD Nov 02, 2020 12:28
[2020-11-02 14:00] VITALS: BP 121/70
[2020-11-02] MEDS: metFORMIN XR 500MG TAB *GLUCOPHAGE XR PO SCH (17:43)
--- NOTE | 2020-11-02 18:30 | REP ---
INDICATION: monitor for chronic thrombus COMPARISON: 09/13/2019 TECHNIQUE: Lema scale and color Doppler evaluation right and left lower extremity using linear high frequency transducer. FINDINGS: Ultrasound examination of the right and left lower extremity deep venous structures from the common femoral vein to the popliteal vein demonstrates normal compressibility flow and wave patterns in response to respiration and augmentation. There is no evidence for deep venous thrombosis. Known stable left popliteal artery aneurysm. IMPRESSION: No evidence for deep venous thrombosis. <Electronically signed by Modesto Hanna > 11/02/20 [id number]
[2020-11-02 20:15] VITALS: BP 138/67
[2020-11-02] MEDS: LIDOCAINE 5% (LIDODERM) PATCH TD SCH (21:12)
[2020-11-02] MEDS: ATORVASTATIN 20 MG TAB PO SCH (21:13)
[2020-11-02] MEDS: BACLOFEN 10 MG TAB PO SCH (21:14)
[2020-11-02] MEDS: SENNA 8.6 MG TAB (SENOKOT) PO SCH (21:14)
[2020-11-03 06:21] VITALS: BP 125/68
[2020-11-03 08:11] LABS: BASO % 0.6 % (0.0-1.0); EOS # 0.5 10^3/uL (0.0-0.5); HEMATOCRIT 28.3 % (42.0-52.0); HEMOGLOBIN 8.6 g/dl (13.5-17.5); LYMPH # 1.4 10^3/uL (1.5-5.0); LYMPH % 21.1 % (24.0-44.0); MEAN CORPUSCULAR HEMOGLOBIN 28.6 pg (27.0-33.0); MEAN CORPUSCULAR HGB CONC 30.4 g/dl (32.0-36.5); MONO # 0.5 10^3/uL (0.0-0.8); MONO % 7.2 % (2.0-8.0); NEUTROPHILS # 4.2 10^3/uL (1.5-8.5); NEUTROPHILS % 62.2 % (36.0-66.0); PLATELET COUNT, AUTOMATED 459 10^3/uL (150-450); RED BLOOD COUNT 3.01 10^6/uL (4.30-6.10); WHITE BLOOD COUNT 6.8 10^3/uL (4.0-10.0)
[2020-11-03 08:31] LABS: BLOOD UREA NITROGEN 26 MG/DL (7-18); CALCIUM LEVEL 8.9 MG/DL (8.8-10.2); CARBON DIOXIDE LEVEL 27 MEQ/L (21-32); CHLORIDE LEVEL 105 MEQ/L (98-107); CREATININE FOR GFR 1.06 MG/DL (0.70-1.30); GLOMERULAR FILTRATION RATE > 60.0 (>42); GLUCOSE, FASTING 114 MG/DL (70-100); POTASSIUM SERUM 4.4 MEQ/L (3.5-5.1); SODIUM LEVEL 137 MEQ/L (136-145)
[2020-11-03] MEDS: HEPARIN SOD (PORCINE) 5000UNITS/ML 1ML VIAL/SYRINGE SC SCH ×2 (10:52→20:43)
[2020-11-03] MEDS: CALCIUM CARB SUSP 1250MG/5ML UNIT DOSE CUP PO SCH (10:52)
[2020-11-03] MEDS: NITROFURANTOIN (MACROBID) 100 MG CAP PO SCH (10:53)
[2020-11-03] MEDS: ramipriL 1.25 MG CAP PO SCH (10:53)
[2020-11-03] MEDS: FERROUS SULFATE 325MG TAB PO SCH ×2 (10:53→20:44)
[2020-11-03] MEDS: METOPROLOL TART 25 MG TABLET PO SCH ×2 (10:54→20:43)
[2020-11-03] MEDS: DOCUSATE SODIUM 100MG CAPSULE PO SCH ×2 (10:54→20:44)
[2020-11-03] MEDS: ASCORBIC ACID 500 MG TAB PO SCH (10:54)
[2020-11-03] MEDS: FOLIC ACID 1 MG TAB PO SCH (10:55)
[2020-11-03] MEDS: VITAMIN D 1,000 INTERNATIONAL UNITS TABLET PO SCH (10:55)
[2020-11-03] MEDS: LACTOBACILLUS ACIDOPHILUS CAP (BACID) PO SCH (10:55)
[2020-11-03] MEDS: OMEPRAZOLE 20 MG CAP PO SCH (10:55)
[2020-11-03] MEDS: BACLOFEN 5MG PER 1/2 TABLET PO SCH ×2 (10:55→16:05)
[2020-11-03] MEDS: ASPIRIN ENTERIC 325 MG TAB PO SCH (10:55)
[2020-11-03] MEDS: ACETAMINOPHEN 500 MG TAB PO SCH ×3 (10:55→20:44)
[2020-11-03] MEDS: REMEDY PHYTOPLEX Z-GUARD PASTE 113GM TUBE (FROM STOREROOM PRODUCT) TOP SCH ×3 (10:56→20:44)
[2020-11-03] MEDS: FLUTICASONE PROP 0.05% NASAL SPRAY 16 GM (FLONASE) NARES SCH ×2 (10:57→20:44)
[2020-11-03] MEDS: POLYVINYL ALCOHOL OPHTH SOLN 15 ML(LIQUITEARS) OU SCH ×3 (10:57→20:44)
[2020-11-03] MEDS: IPRATROPIUM 0.06% NASAL SPRAY 15 ML (ATROVENT) SCH ×2 (10:57→20:45)
[2020-11-03 14:00] VITALS: BP 140/80
[2020-11-03] MEDS: metFORMIN XR 500MG TAB *GLUCOPHAGE XR PO SCH (17:30)
[2020-11-03 20:10] VITALS: BP 132/71
[2020-11-03] MEDS: LIDOCAINE 5% (LIDODERM) PATCH TD SCH (20:43)
[2020-11-03] MEDS: SENNA 8.6 MG TAB (SENOKOT) PO SCH (20:43)
[2020-11-03] MEDS: BACLOFEN 10 MG TAB PO SCH (20:43)
[2020-11-03] MEDS: ATORVASTATIN 20 MG TAB PO SCH (20:44)
--- NOTE | 2020-11-03 20:52 | IPNPDOC ---
PM&R Progress Note DATE OF SERVICE: Nov 03, 2020 Communication Signals Intelligence Progress Note Subjective: Patient seen in therapy reporting he was able to get [facility] REVIEW OF SYSTEMS: The following is a completed review of systems and has been reviewed. Review of systems otherwise unremarkable. PAIN: Patient self reports no pain EYES: No recent vision changes EARS, NOSE, & THROAT: No throat pain, or dysphagia, or rhinorrhea CARDIOVASCULAR: Denies chest pain or palpitations PULMONARY: Denies shortness of breath GASTROINTESTINAL: Denies constipation/diarrhea GENITOURINARY: +mijares MUSCULOSKELETAL: generalized weakness NEUROLOGICAL:+bilat LE paresis HEMATOLOGICAL: +anemia SKIN: RLE surgical incision PSYCHIATRIC: Unremarkable All other review of systems found to be negative. PHYSICAL EXAMINATION: VITAL SIGNS: Please see below. GENERAL: Pleasant and cooperative. No acute distress. HEENT: PERRL. Extraocular movements intact. Clear conjunctiva CARDIOVASCULAR: Regular rate and rhythm. No murmurs, rubs, or gallops, sternal incision c/d/i LUNGS: Clear to auscultation bilaterally. No wheezes. No rhonchi ABDOMEN: Soft, nontender, mildly distended. Positive bowel sounds. Normal active bowel sounds NEUROLOGICAL: Alert and oriented times three. Cranial nerves II through XII grossly intact. Sensation grossly intact] EXTREMITIES: 4+\\5 strength bilateral upper extremities. 3/5 bilat hip flexors and knee extension 2/5 bilat DF +RLE edema SKIN:sternal incision with dermabond- c/d/i ASSESSMENT:75-year-old M with past medical history of MS who presents status post CABG x2 PLAN: 1. Rehab-PT/OT advance mobility and ADLs, strengthen/stretch/maintain ROM all 4limbs 2. Neuro- hx of MS c/u baclofen, energy conservation s/p new cardiac procedure 3. CArdiac- s/p CABG x2 10-20-[address] Palafox, on ASA 325mg daily- modified sternal precautions -hx of LE arterial thrombus s/p tpa in 2008 on Xarelto recently d/c'd at [facility], LE doppler performed at [facility] 10-24-20 showing, "Popliteal artery aneurysm with mural thrombus measuring 2.7 cm x 2.9 cm" discussed with Dr. Palafox's DELI COOK who stated from a cardiac-surgery standpoint he does not need to be on Xarelto any longer, spoke with [facility] clinic nurse today who clarified patient had been on xarelto 2.5 mg BID in addition to baby ASA for PAD, a regimen suggested to be effective for PAD in the [facility]ass trial- given patient's hx of hematruia and p ost-op anemia will continue ASA 325mg for now and schedule f/u with [facility] vascular surgical team - diastolic CHF- daily weight, fluid restrict, will consider lasix - HTN- c/u BP meds - HLD- statin -medicine consulted to assist in overall mangement 4. Resp- hx of ROCHELLE nocturnal 02 -monitor for infection 5. endo- hx of DM c/u metformin and ISS 6. DVT ppx- heparin and teds -dopplers negative for DVT, +chronic left popliteal artery aneurysm 7. GI ppx- omeprazole 8. - change mijares today 11-03-20, c/u prophylactic macrobid -hx of hematuria, monitor 9. Pain- tylenol prn and lidoderm patch 10. Dispo- TBD Allergies Coded Allergies: gabapentin (Verified Adverse Reaction, Intermediate, elevates MS symptoms, 10/20/20) modafinil (Verified Adverse Reaction, Intermediate, elevate MS symptoms, 10/20/20) Cmwspip-Pix-Xzo Reductase Inhibitor (Verified Adverse Reaction, Mild, "PASSES OUT", 10/20/20) glatiramer (copolymer 1) (Verified Adverse Reaction, Mild, weakness, 10/20/20) Vital Signs Vital Signs Date Time Temp Pulse Resp B/P (MAP) Pulse Ox O2 Delivery O2 Flow Rate FiO2 11/03/20 20:10 97.3 83 20 132/71 (91) 98 Room Air Laboratory Data CBC/BMP Laboratory Tests 11/03/20 06:59 Labs 24H Laboratory Tests 2 11/02/20 21:04: Bedside Glucose (Misc Panel) 132H 11/03/20 06:52: Bedside Glucose (Misc Panel) 121H 11/03/20 06:59: Immature Granulocyte % (Auto) 0.9, Neutrophils (%) (Auto) 62.2, Lymphocytes (%) (Auto) 21.1L, Monocytes (%) (Auto) 7.2, Eosinophils (%) (Auto) 8.0H, Basophils (%) (Auto) 0.6, Neutrophils # (Auto) 4.2, Lymphocytes # (Auto) 1.4L, Monocytes # (Auto) 0.5, Eosinophils # (Auto) 0.5, Basophils # (Auto) 0.0, Nucleated Red Blood Cells % (auto) 0.0, Anion Gap 5L, Glomerular Filtration Rate > 60.0, Calcium Level 8.9 11/03/20 11:15: Bedside Glucose (Misc Panel) 112H 11/03/20 16:16: Bedside Glucose (Misc Panel) 163H 11/03/20 20:17: Bedside Glucose (Misc Panel) 151H Current Medications Current Medications Current Medications Medications (Trade) Dose Ordered Sig/Avelino Route PRN Reason Start Time Stop Time Status Last Admin Dose Admin Acetaminophen (Tylenol Tab) 1,000 mg TID PO 11/01/20 16:00 11/03/20 16:05 Artificial Tears (Akwa Tears) 2 drop TID OU 11/01/20 16:00 11/03/20 10:57 Ascorbic Acid (Vitamin C) 500 mg DAILY PO 11/02/20 09:00 11/03/20 10:54 Aspirin (Ecotrin) 325 mg DAILY PO 11/02/20 09:00 11/03/20 10:55 Atorvastatin Calcium (Lipitor) 40 mg QHS PO 11/01/20 21:00 11/02/20 21:13 Baclofen (Lioresal) 5 mg BID@0800,1400 PO 11/01/20 14:00 11/03/20 16:05 Baclofen (Lioresal) 10 mg QHS PO 11/01/20 21:00 11/02/20 21:14 Calcium Carbonate (Calcium Carbonate) 1,250 mg DAILY PO 11/01/20 09:00 11/03/20 10:52 Docusate Sodium (Colace) 200 mg BID PO 11/01/20 21:00 11/03/20 10:54 Ferrous Sulfate (Ferrous Sulfate) 325 mg BID PO 11/01/20 21:00 11/03/20 10:53 Fluticasone Propionate (Flonase 0.05% Nasal [place]) 1 spray BID NARES 11/01/20 21:00 11/03/20 10:57 Folic Acid (Folic Acid) 1 mg DAILY PO 11/02/20 09:00 11/03/20 10:55 Heparin Sodium (Porcine) (Heparin) 5,000 units Q12H SC 11/02/20 09:00 11/03/20 10:52 Home Med (Med Rec Complete!) ASDIRECTED XX 11/01/20 12:55 11/01/20 12:58 DC Ipratropium [place] (Atrovent 0.06%) 2 spray BID NA 11/01/20 21:00 11/03/20 10:57 Lactobacillus Acidophilus (Bacid) 1 ea DAILY PO 11/01/20 09:00 11/01/20 19:54 DC Lactobacillus Acidophilus (Bacid) 1 ea DAILY PO 11/02/20 09:00 11/03/20 10:55 Lidocaine (Lidoderm Patch) 1 patch DAILY@2100 TD 11/01/20 21:00 11/02/20 21:12 Metformin HCl (Glucophage Xr) 500 mg DAILY@18 PO 11/01/20 18:00 11/03/20 17:30 Metoprolol Tartrate (Lopressor) 25 mg BID PO 11/01/20 21:00 11/03/20 10:54 Nitrofurantoin Monoh/Nitrofur Macro (Macrobid) 100 mg DAILY PO 11/01/20 09:00 11/01/20 19:54 DC Nitrofurantoin Monoh/Nitrofur Macro (Macrobid) 100 mg DAILY PO 11/02/20 09:00 11/03/20 10:53 Non-Formulary Medication ( See Comment Field Below ) REMOVE LIDODERM PATCH DAILY@0900 XX 11/02/20 09:00 11/03/20 09:00 Omeprazole (PriLOSEC) 20 mg DAILY PO 11/02/20 09:00 11/03/20 10:55 Polyethylene Glycol (Miralax) 1 pkt DAILY PRN PO CONSTIPATION 11/02/20 09:00 Ramipril (Altace) 1.25 mg DAILY PO 11/02/20 09:00 11/03/20 10:53 Senna (Senokot) 1 tab QHS PO 11/01/20 21:00 11/02/20 21:14 Vitamin D (Vitamin D) 1,000 units DAILY PO 11/01/20 09:00 11/03/20 10:55 KRISTINA CADENA MD Nov 03, 2020 20:52
[2020-11-04 06:24] VITALS: BP 127/64
[2020-11-04] MEDS: CALCIUM CARB SUSP 1250MG/5ML UNIT DOSE CUP PO SCH (08:53)
[2020-11-04] MEDS: HEPARIN SOD (PORCINE) 5000UNITS/ML 1ML VIAL/SYRINGE SC SCH ×2 (08:53→20:21)
[2020-11-04] MEDS: NITROFURANTOIN (MACROBID) 100 MG CAP PO SCH (08:53)
[2020-11-04] MEDS: OMEPRAZOLE 20 MG CAP PO SCH (08:53)
[2020-11-04] MEDS: FOLIC ACID 1 MG TAB PO SCH (08:54)
[2020-11-04] MEDS: BACLOFEN 5MG PER 1/2 TABLET PO SCH ×2 (08:54→14:04)
[2020-11-04] MEDS: MIRALAX *UNIT DOSE* 17GM PACKET PO PRN (08:54)
[2020-11-04] MEDS: DOCUSATE SODIUM 100MG CAPSULE PO SCH ×2 (08:54→20:19)
[2020-11-04] MEDS: LACTOBACILLUS ACIDOPHILUS CAP (BACID) PO SCH (08:54)
[2020-11-04] MEDS: VITAMIN D 1,000 INTERNATIONAL UNITS TABLET PO SCH (08:54)
[2020-11-04] MEDS: ASPIRIN ENTERIC 325 MG TAB PO SCH (08:55)
[2020-11-04] MEDS: ASCORBIC ACID 500 MG TAB PO SCH (08:55)
[2020-11-04] MEDS: FERROUS SULFATE 325MG TAB PO SCH ×2 (08:55→20:19)
[2020-11-04] MEDS: ramipriL 1.25 MG CAP PO SCH (08:56)
[2020-11-04] MEDS: ACETAMINOPHEN 500 MG TAB PO SCH ×3 (08:56→20:20)
[2020-11-04] MEDS: FLUTICASONE PROP 0.05% NASAL SPRAY 16 GM (FLONASE) NARES SCH ×2 (08:57→20:22)
[2020-11-04] MEDS: POLYVINYL ALCOHOL OPHTH SOLN 15 ML(LIQUITEARS) OU SCH ×3 (08:57→20:22)
[2020-11-04] MEDS: REMEDY PHYTOPLEX Z-GUARD PASTE 113GM TUBE (FROM STOREROOM PRODUCT) TOP SCH ×3 (08:57→20:21)
[2020-11-04] MEDS: METOPROLOL TART 25 MG TABLET PO SCH ×2 (08:57→20:21)
[2020-11-04] MEDS: IPRATROPIUM 0.06% NASAL SPRAY 15 ML (ATROVENT) SCH ×2 (09:00→20:22)
[2020-11-04 14:00] VITALS: BP 112/64
[2020-11-04] MEDS: metFORMIN XR 500MG TAB *GLUCOPHAGE XR PO SCH (18:04)
[2020-11-04 20:00] VITALS: BP 130/72
[2020-11-04] MEDS: ATORVASTATIN 20 MG TAB PO SCH (20:19)
[2020-11-04] MEDS: SENNA 8.6 MG TAB (SENOKOT) PO SCH (20:19)
[2020-11-04] MEDS: BACLOFEN 10 MG TAB PO SCH (20:20)
[2020-11-04] MEDS: LIDOCAINE 5% (LIDODERM) PATCH TD SCH (20:21)
[2020-11-05 05:35] VITALS: BP 134/73
[2020-11-05 09:00] VITALS: BP 104/57
[2020-11-05] MEDS: ASPIRIN ENTERIC 325 MG TAB PO SCH (09:06)
[2020-11-05] MEDS: HEPARIN SOD (PORCINE) 5000UNITS/ML 1ML VIAL/SYRINGE SC SCH ×2 (09:06→20:22)
[2020-11-05] MEDS: FERROUS SULFATE 325MG TAB PO SCH ×2 (09:06→20:22)
[2020-11-05] MEDS: NITROFURANTOIN (MACROBID) 100 MG CAP PO SCH (09:06)
[2020-11-05] MEDS: LACTOBACILLUS ACIDOPHILUS CAP (BACID) PO SCH (09:06)
[2020-11-05] MEDS: DOCUSATE SODIUM 100MG CAPSULE PO SCH ×2 (09:07→20:22)
[2020-11-05] MEDS: ASCORBIC ACID 500 MG TAB PO SCH (09:07)
[2020-11-05] MEDS: VITAMIN D 1,000 INTERNATIONAL UNITS TABLET PO SCH (09:07)
[2020-11-05] MEDS: BACLOFEN 5MG PER 1/2 TABLET PO SCH ×2 (09:07→14:18)
[2020-11-05] MEDS: MIRALAX *UNIT DOSE* 17GM PACKET PO PRN (09:07)
[2020-11-05] MEDS: FOLIC ACID 1 MG TAB PO SCH (09:07)
[2020-11-05] MEDS: OMEPRAZOLE 20 MG CAP PO SCH (09:08)
[2020-11-05] MEDS: CALCIUM CARB SUSP 1250MG/5ML UNIT DOSE CUP PO SCH (09:08)
[2020-11-05] MEDS: ACETAMINOPHEN 500 MG TAB PO SCH ×3 (09:09→20:22)
[2020-11-05] MEDS: ramipriL 1.25 MG CAP PO SCH (09:12)
[2020-11-05] MEDS: METOPROLOL TART 25 MG TABLET PO SCH ×2 (09:12→20:23)
[2020-11-05] MEDS: REMEDY PHYTOPLEX Z-GUARD PASTE 113GM TUBE (FROM STOREROOM PRODUCT) TOP SCH ×3 (09:15→20:24)
[2020-11-05] MEDS: FLUTICASONE PROP 0.05% NASAL SPRAY 16 GM (FLONASE) NARES SCH ×2 (09:15→20:21)
[2020-11-05] MEDS: POLYVINYL ALCOHOL OPHTH SOLN 15 ML(LIQUITEARS) OU SCH ×3 (09:15→20:24)
[2020-11-05] MEDS: IPRATROPIUM 0.06% NASAL SPRAY 15 ML (ATROVENT) SCH ×2 (09:15→20:21)
[2020-11-05 14:00] VITALS: BP 114/65
[2020-11-05] MEDS: metFORMIN XR 500MG TAB *GLUCOPHAGE XR PO SCH (17:26)
[2020-11-05 20:00] VITALS: BP 133/71
[2020-11-05] MEDS: LIDOCAINE 5% (LIDODERM) PATCH TD SCH (20:21)
[2020-11-05] MEDS: BACLOFEN 10 MG TAB PO SCH (20:22)
[2020-11-05] MEDS: SENNA 8.6 MG TAB (SENOKOT) PO SCH (20:22)
[2020-11-05] MEDS: ATORVASTATIN 20 MG TAB PO SCH (20:22)
[2020-11-06 05:51] VITALS: BP 101/56
[2020-11-06 06:37] LABS: BASO # 0.1 10^3/uL (0.0-0.2); BASO % 0.8 % (0.0-1.0); EOS # 0.6 10^3/uL (0.0-0.5); EOS % 7.6 % (0.0-3.0); HEMATOCRIT 30.6 % (42.0-52.0); HEMOGLOBIN 9.6 g/dl (13.5-17.5); LYMPH # 1.4 10^3/uL (1.5-5.0); LYMPH % 19.4 % (24.0-44.0); MEAN CORPUSCULAR HEMOGLOBIN 29.6 pg (27.0-33.0); MEAN CORPUSCULAR HGB CONC 31.4 g/dl (32.0-36.5); MEAN CORPUSCULAR VOLUME 94.4 fl (80.0-96.0); MONO # 0.5 10^3/uL (0.0-0.8); MONO % 6.6 % (2.0-8.0); NEUTROPHILS # 4.8 10^3/uL (1.5-8.5); NEUTROPHILS % 64.7 % (36.0-66.0); PLATELET COUNT, AUTOMATED 512 10^3/uL (150-450); RED BLOOD COUNT 3.24 10^6/uL (4.30-6.10); WHITE BLOOD COUNT 7.4 10^3/uL (4.0-10.0)
[2020-11-06 07:07] LABS: BLOOD UREA NITROGEN 25 MG/DL (7-18); CALCIUM LEVEL 9.2 MG/DL (8.8-10.2); CARBON DIOXIDE LEVEL 26 MEQ/L (21-32); CHLORIDE LEVEL 106 MEQ/L (98-107); CREATININE FOR GFR 1.14 MG/DL (0.70-1.30); GLOMERULAR FILTRATION RATE > 60.0 (>42); GLUCOSE, FASTING 116 MG/DL (70-100); POTASSIUM SERUM 5.1 MEQ/L (3.5-5.1); SODIUM LEVEL 138 MEQ/L (136-145)
[2020-11-06] MEDS: BACLOFEN 5MG PER 1/2 TABLET PO SCH ×2 (08:00→13:57)
[2020-11-06] MEDS: MIRALAX *UNIT DOSE* 17GM PACKET PO PRN (09:34)
[2020-11-06] MEDS: CALCIUM CARB SUSP 1250MG/5ML UNIT DOSE CUP PO SCH (09:35)
[2020-11-06] MEDS: FERROUS SULFATE 325MG TAB PO SCH ×2 (09:36→20:16)
[2020-11-06] MEDS: ASPIRIN ENTERIC 325 MG TAB PO SCH (09:36)
[2020-11-06] MEDS: ACETAMINOPHEN 500 MG TAB PO SCH ×3 (09:36→20:17)
[2020-11-06] MEDS: DOCUSATE SODIUM 100MG CAPSULE PO SCH ×2 (09:37→20:15)
[2020-11-06] MEDS: METOPROLOL TART 25 MG TABLET PO SCH ×2 (09:37→20:16)
[2020-11-06] MEDS: FOLIC ACID 1 MG TAB PO SCH (09:37)
[2020-11-06] MEDS: NITROFURANTOIN (MACROBID) 100 MG CAP PO SCH (09:37)
[2020-11-06] MEDS: ramipriL 1.25 MG CAP PO SCH (09:38)
[2020-11-06] MEDS: HEPARIN SOD (PORCINE) 5000UNITS/ML 1ML VIAL/SYRINGE SC SCH ×2 (09:38→20:17)
[2020-11-06] MEDS: ASCORBIC ACID 500 MG TAB PO SCH (09:38)
[2020-11-06] MEDS: VITAMIN D 1,000 INTERNATIONAL UNITS TABLET PO SCH (09:38)
[2020-11-06] MEDS: OMEPRAZOLE 20 MG CAP PO SCH (09:38)
[2020-11-06] MEDS: FLUTICASONE PROP 0.05% NASAL SPRAY 16 GM (FLONASE) NARES SCH ×2 (09:39→20:18)
[2020-11-06] MEDS: LACTOBACILLUS ACIDOPHILUS CAP (BACID) PO SCH (09:39)
[2020-11-06] MEDS: POLYVINYL ALCOHOL OPHTH SOLN 15 ML(LIQUITEARS) OU SCH ×3 (09:40→20:18)
[2020-11-06] MEDS: IPRATROPIUM 0.06% NASAL SPRAY 15 ML (ATROVENT) SCH ×2 (09:40→20:18)
[2020-11-06] MEDS: REMEDY PHYTOPLEX Z-GUARD PASTE 113GM TUBE (FROM STOREROOM PRODUCT) TOP SCH ×3 (09:41→20:18)
[2020-11-06 14:00] VITALS: BP 110/60
[2020-11-06] MEDS: metFORMIN XR 500MG TAB *GLUCOPHAGE XR PO SCH (17:05)
[2020-11-06 19:55] VITALS: BP 121/59
[2020-11-06] MEDS: BACLOFEN 10 MG TAB PO SCH (20:15)
[2020-11-06] MEDS: LIDOCAINE 5% (LIDODERM) PATCH TD SCH (20:15)
[2020-11-06] MEDS: ATORVASTATIN 20 MG TAB PO SCH (20:16)
[2020-11-06] MEDS: SENNA 8.6 MG TAB (SENOKOT) PO SCH (20:16)
[2020-11-07 05:27] VITALS: BP 111/66
[2020-11-07 09:00] VITALS: BP 124/71
[2020-11-07] MEDS: ASPIRIN ENTERIC 325 MG TAB PO SCH (09:15)
[2020-11-07] MEDS: FERROUS SULFATE 325MG TAB PO SCH ×2 (09:15→20:34)
[2020-11-07] MEDS: BACLOFEN 5MG PER 1/2 TABLET PO SCH ×2 (09:15→14:44)
[2020-11-07] MEDS: ramipriL 1.25 MG CAP PO SCH (09:15)
[2020-11-07] MEDS: MIRALAX *UNIT DOSE* 17GM PACKET PO PRN (09:15)
[2020-11-07] MEDS: VITAMIN D 1,000 INTERNATIONAL UNITS TABLET PO SCH (09:15)
[2020-11-07] MEDS: LACTOBACILLUS ACIDOPHILUS CAP (BACID) PO SCH (09:15)
[2020-11-07] MEDS: CALCIUM CARB SUSP 1250MG/5ML UNIT DOSE CUP PO SCH (09:15)
[2020-11-07] MEDS: ASCORBIC ACID 500 MG TAB PO SCH (09:15)
[2020-11-07] MEDS: NITROFURANTOIN (MACROBID) 100 MG CAP PO SCH (09:16)
[2020-11-07] MEDS: OMEPRAZOLE 20 MG CAP PO SCH (09:16)
[2020-11-07] MEDS: METOPROLOL TART 25 MG TABLET PO SCH ×2 (09:16→20:34)
[2020-11-07] MEDS: DOCUSATE SODIUM 100MG CAPSULE PO SCH ×2 (09:16→20:33)
[2020-11-07] MEDS: FOLIC ACID 1 MG TAB PO SCH (09:16)
[2020-11-07] MEDS: ACETAMINOPHEN 500 MG TAB PO SCH ×3 (09:18→20:35)
[2020-11-07] MEDS: FLUTICASONE PROP 0.05% NASAL SPRAY 16 GM (FLONASE) NARES SCH ×2 (09:19→20:35)
[2020-11-07] MEDS: HEPARIN SOD (PORCINE) 5000UNITS/ML 1ML VIAL/SYRINGE SC SCH ×2 (09:19→20:33)
[2020-11-07] MEDS: IPRATROPIUM 0.06% NASAL SPRAY 15 ML (ATROVENT) SCH ×2 (09:19→20:35)
[2020-11-07] MEDS: POLYVINYL ALCOHOL OPHTH SOLN 15 ML(LIQUITEARS) OU SCH ×3 (09:19→20:33)
[2020-11-07] MEDS: REMEDY PHYTOPLEX Z-GUARD PASTE 113GM TUBE (FROM STOREROOM PRODUCT) TOP SCH ×3 (09:20→20:36)
[2020-11-07 14:00] VITALS: BP 130/64
[2020-11-07] MEDS: metFORMIN XR 500MG TAB *GLUCOPHAGE XR PO SCH (17:16)
[2020-11-07 20:01] VITALS: BP 128/65
[2020-11-07] MEDS: BACLOFEN 10 MG TAB PO SCH (20:33)
[2020-11-07] MEDS: ATORVASTATIN 20 MG TAB PO SCH (20:34)
[2020-11-07] MEDS: SENNA 8.6 MG TAB (SENOKOT) PO SCH (20:34)
[2020-11-07] MEDS: LIDOCAINE 5% (LIDODERM) PATCH TD SCH (20:36)
[2020-11-08 06:00] VITALS: BP 105/61
[2020-11-08 06:59] LABS: BASO # 0.1 10^3/uL (0.0-0.2); BASO % 0.7 % (0.0-1.0); EOS # 0.4 10^3/uL (0.0-0.5); EOS % 6.1 % (0.0-3.0); HEMATOCRIT 30.5 % (42.0-52.0); HEMOGLOBIN 9.5 g/dl (13.5-17.5); LYMPH # 1.6 10^3/uL (1.5-5.0); LYMPH % 21.6 % (24.0-44.0); MEAN CORPUSCULAR HEMOGLOBIN 29.6 pg (27.0-33.0); MEAN CORPUSCULAR HGB CONC 31.1 g/dl (32.0-36.5); MONO # 0.5 10^3/uL (0.0-0.8); MONO % 7.4 % (2.0-8.0); NEUTROPHILS # 4.6 10^3/uL (1.5-8.5); NEUTROPHILS % 63.6 % (36.0-66.0); PLATELET COUNT, AUTOMATED 454 10^3/uL (150-450); RED BLOOD COUNT 3.21 10^6/uL (4.30-6.10); WHITE BLOOD COUNT 7.2 10^3/uL (4.0-10.0)
[2020-11-08 07:30] LABS: BLOOD UREA NITROGEN 32 MG/DL (7-18); CALCIUM LEVEL 8.7 MG/DL (8.8-10.2); CARBON DIOXIDE LEVEL 26 MEQ/L (21-32); CHLORIDE LEVEL 106 MEQ/L (98-107); CREATININE FOR GFR 1.11 MG/DL (0.70-1.30); GLOMERULAR FILTRATION RATE > 60.0 (>42); GLUCOSE, FASTING 117 MG/DL (70-100); POTASSIUM SERUM 4.8 MEQ/L (3.5-5.1); SODIUM LEVEL 139 MEQ/L (136-145)
[2020-11-08] MEDS: HEPARIN SOD (PORCINE) 5000UNITS/ML 1ML VIAL/SYRINGE SC SCH ×2 (08:29→20:33)
[2020-11-08 08:30] VITALS: BP 137/73
[2020-11-08] MEDS: ASCORBIC ACID 500 MG TAB PO SCH (08:30)
[2020-11-08] MEDS: VITAMIN D 1,000 INTERNATIONAL UNITS TABLET PO SCH (08:31)
[2020-11-08] MEDS: LACTOBACILLUS ACIDOPHILUS CAP (BACID) PO SCH (08:31)
[2020-11-08] MEDS: ASPIRIN ENTERIC 325 MG TAB PO SCH (08:31)
[2020-11-08] MEDS: OMEPRAZOLE 20 MG CAP PO SCH (08:32)
[2020-11-08] MEDS: CALCIUM CARB SUSP 1250MG/5ML UNIT DOSE CUP PO SCH (08:32)
[2020-11-08] MEDS: FOLIC ACID 1 MG TAB PO SCH (08:32)
[2020-11-08] MEDS: DOCUSATE SODIUM 100MG CAPSULE PO SCH ×2 (08:32→20:32)
[2020-11-08] MEDS: BACLOFEN 5MG PER 1/2 TABLET PO SCH ×2 (08:32→14:03)
[2020-11-08] MEDS: FERROUS SULFATE 325MG TAB PO SCH ×2 (08:32→20:31)
[2020-11-08] MEDS: NITROFURANTOIN (MACROBID) 100 MG CAP PO SCH (08:32)
[2020-11-08] MEDS: ACETAMINOPHEN 500 MG TAB PO SCH ×3 (08:34→20:32)
[2020-11-08] MEDS: IPRATROPIUM 0.06% NASAL SPRAY 15 ML (ATROVENT) SCH ×2 (08:35→20:33)
[2020-11-08] MEDS: POLYVINYL ALCOHOL OPHTH SOLN 15 ML(LIQUITEARS) OU SCH ×3 (08:35→20:34)
[2020-11-08] MEDS: REMEDY PHYTOPLEX Z-GUARD PASTE 113GM TUBE (FROM STOREROOM PRODUCT) TOP SCH ×3 (08:35→20:32)
[2020-11-08] MEDS: FLUTICASONE PROP 0.05% NASAL SPRAY 16 GM (FLONASE) NARES SCH ×2 (08:35→20:34)
[2020-11-08] MEDS: METOPROLOL TART 25 MG TABLET PO SCH ×2 (08:39→20:33)
[2020-11-08] MEDS: ramipriL 1.25 MG CAP PO SCH (08:39)
[2020-11-08 14:00] VITALS: BP 134/65
[2020-11-08] MEDS: metFORMIN XR 500MG TAB *GLUCOPHAGE XR PO SCH (16:50)
[2020-11-08 20:00] VITALS: BP 140/67
[2020-11-08] MEDS: ATORVASTATIN 20 MG TAB PO SCH (20:31)
[2020-11-08] MEDS: SENNA 8.6 MG TAB (SENOKOT) PO SCH (20:32)
[2020-11-08] MEDS: BACLOFEN 10 MG TAB PO SCH (20:32)
[2020-11-08] MEDS: LIDOCAINE 5% (LIDODERM) PATCH TD SCH (20:33)
--- NOTE | 2020-11-08 20:52 | IPNPDOC ---
PM&R Progress Note DATE OF SERVICE: Nov 08, 2020 Hotel Room Attendant Progress Note Subjective: Patient wondering if his heparin can be discontinued. He reports he has an appointment with the [facility] vascular clinic in the next week where he will have further vascular work-up. REVIEW OF SYSTEMS: The following is a completed review of systems and has been reviewed. Review of systems otherwise unremarkable. PAIN: Patient self reports no pain EYES: No recent vision changes EARS, NOSE, & THROAT: No throat pain, or dysphagia, or rhinorrhea CARDIOVASCULAR: Denies chest pain or palpitations PULMONARY: Denies shortness of breath GASTROINTESTINAL: Denies constipation/diarrhea GENITOURINARY: +mijares MUSCULOSKELETAL: generalized weakness NEUROLOGICAL:+bilat LE paresis HEMATOLOGICAL: +anemia SKIN: RLE surgical incision PSYCHIATRIC: Unremarkable All other review of systems found to be negative. PHYSICAL EXAMINATION: VITAL SIGNS: Please see below. GENERAL: Pleasant and cooperative. No acute distress. HEENT: PERRL. Extraocular movements intact. Clear conjunctiva CARDIOVASCULAR: Regular rate and rhythm. No murmurs, rubs, or gallops, sternal incision c/d/i LUNGS: Clear to auscultation bilaterally. No wheezes. No rhonchi ABDOMEN: Soft, nontender, mildly distended. Positive bowel sounds. Normal active bowel sounds NEUROLOGICAL: Alert and oriented times three. Cranial nerves II through XII grossly intact. Sensation grossly intact] EXTREMITIES: 4+\\5 strength bilateral upper extremities. 3/5 bilat hip flexors and knee extension 2/5 bilat DF +RLE edema SKIN:sternal incision with dermabond- c/d/i ASSESSMENT:75-year-old M with past medical history of MS who presents status post CABG x2 PLAN: 1. Rehab-PT/OT advance mobility and ADLs, strengthen/stretch/maintain ROM all 4limbs 2. Neuro- hx of MS c/u baclofen, energy conservation s/p new cardiac procedure 3. CArdiac- s/p CABG x2 10-20-[address] Palafox, on ASA 325mg daily- modified sternal precautions -hx of LE arterial thrombus s/p tpa in 2008 on Xarelto recently d/c'd at [facility], LE doppler performed at [facility] 10-24-20 showing, "Popliteal artery aneurysm with mural thrombus measuring 2.7 cm x 2.9 cm" discussed with Dr. Palafox's BACK END ARCHITECT who stated from a cardiac-surgery standpoint he does not need to be on Xarelto any longer, spoke with [facility] clinic nurse today who clarified patient had been on xarelto 2.5 mg BID in addition to baby ASA for PAD, a regimen suggested to be effective for PAD in the [facility]ass trial- given patient's hx of hematruia and po st-op anemia will continue ASA 325mg for now, patient has f/u with [facility] vascular surgical team - diastolic CHF- daily weight, fluid restrict, appears euvolemic - HTN- c/u BP meds - HLD- statin -medicine consulted to assist in overall mangement 4. Resp- hx of ROCHELLE nocturnal 02 -monitor for infection 5. endo- hx of DM c/u metformin and ISS 6. DVT ppx- patient requesting no further heparin, he is ambulating well and on ASA 325mg -dopplers negative for DVT, +chronic left popliteal artery aneurysm 7. GI ppx- omeprazole 8. - change mijares changed, 11-03-20, c/u prophylactic macrobid -hx of hematuria, monitor 9. Pain- tylenol prn and lidoderm patch 10. Dispo- 11-13-20 to home, progressing towards goals Allergies Coded Allergies: gabapentin (Verified Adverse Reaction, Intermediate, elevates MS symptoms, 10/20/20) modafinil (Verified Adverse Reaction, Intermediate, elevate MS symptoms, 10/20/20) Sqjwkgr-Hkm-Fmt Reductase Inhibitor (Verified Adverse Reaction, Mild, "PASSES OUT", 10/20/20) glatiramer (copolymer 1) (Verified Adverse Reaction, Mild, weakness, 10/20/20) Vital Signs Vital Signs Date Time Temp Pulse Resp B/P (MAP) Pulse Ox O2 Delivery O2 Flow Rate FiO2 11/08/20 20:33 76 140/67 11/08/20 14:00 97.6 18 99 Room Air Laboratory Data CBC/BMP Laboratory Tests 11/08/20 05:34 Labs 24H Laboratory Tests 2 11/08/20 05:34: Immature Granulocyte % (Auto) 0.6, Neutrophils (%) (Auto) 63.6, Lymphocytes (%) (Auto) 21.6L, Monocytes (%) (Auto) 7.4, Eosinophils (%) (Auto) 6.1H, Basophils (%) (Auto) 0.7, Neutrophils # (Auto) 4.6, Lymphocytes # (Auto) 1.6, Monocytes # (Auto) 0.5, Eosinophils # (Auto) 0.4, Basophils # (Auto) 0.1, Nucleated Red Blood Cells % (auto) 0.0, Anion Gap 7L, Glomerular Filtration Rate > 60.0, Calcium Level 8.7L 11/08/20 11:32: Bedside Glucose (Misc Panel) 88 11/08/20 16:48: Bedside Glucose (Misc Panel) 97 Current Medications Current Medications Current Medications Medications (Trade) Dose Ordered Sig/Avelino Route PRN Reason Start Time Stop Time Status Last Admin Dose Admin Acetaminophen (Tylenol Tab) 1,000 mg TID PO 11/01/20 16:00 11/08/20 20:32 Artificial Tears (Akwa Tears) 2 drop TID OU 11/01/20 16:00 11/08/20 20:34 Ascorbic Acid (Vitamin C) 500 mg DAILY PO 11/02/20 09:00 11/08/20 08:30 Aspirin (Ecotrin) 325 mg DAILY PO 11/02/20 09:00 11/08/20 08:31 Atorvastatin Calcium (Lipitor) 40 mg QHS PO 11/01/20 21:00 11/08/20 20:31 Baclofen (Lioresal) 5 mg BID@0800,1400 PO 11/01/20 14:00 11/08/20 14:03 Baclofen (Lioresal) 10 mg QHS PO 11/01/20 21:00 11/08/20 20:32 Calcium Carbonate (Calcium Carbonate) 1,250 mg DAILY PO 11/01/20 09:00 11/08/20 08:32 Docusate Sodium (Colace) 200 mg BID PO 11/01/20 21:00 11/08/20 20:32 Ferrous Sulfate (Ferrous Sulfate) 325 mg BID PO 11/01/20 21:00 11/08/20 20:31 Fluticasone Propionate (Flonase 0.05% Nasal [place]) 1 spray BID NARES 11/01/20 21:00 11/08/20 08:35 Folic Acid (Folic Acid) 1 mg DAILY PO 11/02/20 09:00 11/08/20 08:32 Heparin Sodium (Porcine) (Heparin) 5,000 units Q12H SC 11/02/20 09:00 11/08/20 20:33 Home Med (Med Rec Complete!) ASDIRECTED XX 11/01/20 12:55 11/01/20 12:58 DC Ipratropium [place] (Atrovent 0.06%) 2 spray BID NA 11/01/20 21:00 11/08/20 08:35 Lactobacillus Acidophilus (Bacid) 1 ea DAILY PO 11/01/20 09:00 11/01/20 19:54 DC Lactobacillus Acidophilus (Bacid) 1 ea DAILY PO 11/02/20 09:00 11/08/20 08:31 Lidocaine (Lidoderm Patch) 1 patch DAILY@2100 TD 11/01/20 21:00 11/08/20 20:33 Metformin HCl (Glucophage Xr) 500 mg DAILY@18 PO 11/01/20 18:00 11/08/20 16:50 Metoprolol Tartrate (Lopressor) 25 mg BID PO 11/01/20 21:00 11/08/20 20:33 Nitrofurantoin Monoh/Nitrofur Macro (Macrobid) 100 mg DAILY PO 11/01/20 09:00 11/01/20 19:54 DC Nitrofurantoin Monoh/Nitrofur Macro (Macrobid) 100 mg DAILY PO 11/02/20 09:00 11/08/20 08:32 Non-Formulary Medication ( See Comment Field Below ) REMOVE LIDODERM PATCH DAILY@0900 XX 11/02/20 09:00 11/08/20 08:35 Omeprazole (PriLOSEC) 20 mg DAILY PO 11/02/20 09:00 11/08/20 08:32 Polyethylene Glycol (Miralax) 1 pkt DAILY PRN PO CONSTIPATION 11/02/20 09:00 11/07/20 09:15 Ramipril (Altace) 1.25 mg DAILY PO 11/02/20 09:00 11/08/20 08:39 Senna (Senokot) 1 tab QHS PO 11/01/20 21:00 11/08/20 20:32 Vitamin D (Vitamin D) 1,000 units DAILY PO 11/01/20 09:00 11/08/20 08:31 KRISTINA CADENA MD Nov 08, 2020 20:52
[2020-11-09 05:19] VITALS: BP 105/65
[2020-11-09 08:46] VITALS: BP 125/64
[2020-11-09] MEDS: ASPIRIN ENTERIC 325 MG TAB PO SCH (08:47)
[2020-11-09] MEDS: DOCUSATE SODIUM 100MG CAPSULE PO SCH ×2 (08:47→20:27)
[2020-11-09] MEDS: BACLOFEN 5MG PER 1/2 TABLET PO SCH ×2 (08:47→13:14)
[2020-11-09] MEDS: OMEPRAZOLE 20 MG CAP PO SCH (08:47)
[2020-11-09] MEDS: ASCORBIC ACID 500 MG TAB PO SCH (08:47)
[2020-11-09] MEDS: FERROUS SULFATE 325MG TAB PO SCH ×2 (08:47→20:26)
[2020-11-09] MEDS: NITROFURANTOIN (MACROBID) 100 MG CAP PO SCH (08:48)
[2020-11-09] MEDS: ACETAMINOPHEN 500 MG TAB PO SCH ×3 (08:48→20:26)
[2020-11-09] MEDS: FOLIC ACID 1 MG TAB PO SCH (08:48)
[2020-11-09] MEDS: CALCIUM CARB SUSP 1250MG/5ML UNIT DOSE CUP PO SCH (08:48)
[2020-11-09] MEDS: LACTOBACILLUS ACIDOPHILUS CAP (BACID) PO SCH (08:48)
[2020-11-09] MEDS: ramipriL 1.25 MG CAP PO SCH (08:51)
[2020-11-09] MEDS: METOPROLOL TART 25 MG TABLET PO SCH ×2 (08:51→20:27)
[2020-11-09] MEDS: IPRATROPIUM 0.06% NASAL SPRAY 15 ML (ATROVENT) SCH ×2 (08:52→20:28)
[2020-11-09] MEDS: VITAMIN D 1,000 INTERNATIONAL UNITS TABLET PO SCH (08:52)
[2020-11-09] MEDS: POLYVINYL ALCOHOL OPHTH SOLN 15 ML(LIQUITEARS) OU SCH ×3 (08:52→20:28)
[2020-11-09] MEDS: FLUTICASONE PROP 0.05% NASAL SPRAY 16 GM (FLONASE) NARES SCH ×2 (08:52→20:28)
[2020-11-09] MEDS: REMEDY PHYTOPLEX Z-GUARD PASTE 113GM TUBE (FROM STOREROOM PRODUCT) TOP SCH ×3 (08:54→20:28)
--- NOTE | 2020-11-09 10:26 | IPNPDOC ---
PM&R Progress Note DATE OF SERVICE: Nov 09, 2020 Physician/Allergy/Immunology Progress Note Subjective: Patient reporting he feels good, is getting stronger, and feels he will be strong enough to go home Friday. REVIEW OF SYSTEMS: The following is a completed review of systems and has been reviewed. Review of systems otherwise unremarkable. PAIN: Patient self reports no pain EYES: No recent vision changes EARS, NOSE, & THROAT: No throat pain, or dysphagia, or rhinorrhea CARDIOVASCULAR: Denies chest pain or palpitations PULMONARY: Denies shortness of breath GASTROINTESTINAL: Denies constipation/diarrhea GENITOURINARY: +mijares MUSCULOSKELETAL: generalized weakness NEUROLOGICAL:+bilat LE paresis HEMATOLOGICAL: +anemia SKIN: RLE surgical incision PSYCHIATRIC: Unremarkable All other review of systems found to be negative. PHYSICAL EXAMINATION: VITAL SIGNS: Please see below. GENERAL: Pleasant and cooperative. No acute distress. HEENT: PERRL. Extraocular movements intact. Clear conjunctiva CARDIOVASCULAR: Regular rate and rhythm. No murmurs, rubs, or gallops, sternal incision c/d/i LUNGS: Clear to auscultation bilaterally. No wheezes. No rhonchi ABDOMEN: Soft, nontender, mildly distended. Positive bowel sounds. Normal active bowel sounds NEUROLOGICAL: Alert and oriented times three. Cranial nerves II through XII grossly intact. Sensation grossly intact] EXTREMITIES: 4+\\5 strength bilateral upper extremities. 3/5 bilat hip flexors and knee extension 2/5 bilat DF +RLE edema (improving) SKIN:sternal incision with dermabond- c/d/i ASSESSMENT:75-year-old M with past medical history of MS who presents status post CABG x2 PLAN: 1. Rehab-PT/OT advance mobility and ADLs, strengthen/stretch/maintain ROM all 4limbs 2. Neuro- hx of MS c/u baclofen, energy conservation s/p new cardiac procedure 3. CArdiac- s/p CABG x2 10-20-[address] Palafox, on ASA 325mg daily- modified sternal precautions -hx of LE arterial thrombus s/p tpa in 2008 on Xarelto recently d/c'd at [facility], LE doppler performed at [facility] 10-24-20 showing, "Popliteal artery aneurysm with mural thrombus measuring 2.7 cm x 2.9 cm" discussed with Dr. Palafox's TRUCK SALES REPRESENTATIVE who stated from a cardiac-surgery standpoint he does not need to be on Xarelto any longer, spoke with [facility] clinic nurse today who clarified patient had been on xarelto 2.5 mg BID in addition to baby ASA for PAD, a regimen suggested to be effective for PAD in the [facility] trial- given patient's hx of hematruia and post-op anemia will continue ASA 325mg for now, patient has f/u with [facility] vascular surgical team - diastolic CHF- daily weight, fluid restrict, appears euvolemic - HTN- c/u BP meds - HLD- statin -medicine consulted to assist in overall mangement 4. Resp- hx of ROCHELLE nocturnal 02 -monitor for infection 5. endo- hx of DM c/u metformin and ISS 6. DVT ppx- patient requesting no further heparin, he is ambulating well and on ASA 325mg -dopplers negative for DVT, +chronic left popliteal artery aneurysm 7. GI ppx- omeprazole 8. - change mijares changed, 11-03-20, c/u prophylactic macrobid -hx of hematuria, monitor 9. Pain- tylenol prn and lidoderm patch 10. Dispo- 11-13-20 to home, progressing towards goals Allergies Coded Allergies: gabapentin (Verified Adverse Reaction, Intermediate, elevates MS symptoms, 10/20/20) modafinil (Verified Adverse Reaction, Intermediate, elevate MS symptoms, 10/20/20) Zyxnjoq-Udk-Ooe Reductase Inhibitor (Verified Adverse Reaction, Mild, "PASSES OUT", 10/20/20) glatiramer (copolymer 1) (Verified Adverse Reaction, Mild, weakness, 10/20/20) Vital Signs Vital Signs Date Time Temp Pulse Resp B/P (MAP) Pulse Ox O2 Delivery O2 Flow Rate FiO2 11/09/20 08:51 125/64 11/09/20 08:51 91 11/09/20 05:19 98.4 19 98 Room Air Laboratory Data Labs 24H Laboratory Tests 2 11/08/20 11:32: Bedside Glucose (Misc Panel) 88 11/08/20 16:48: Bedside Glucose (Misc Panel) 97 11/09/20 05:04: Bedside Glucose (Misc Panel) 119H Current Medications Current Medications Current Medications Medications (Trade) Dose Ordered Sig/Avelino Route PRN Reason Start Time Stop Time Status Last Admin Dose Admin Acetaminophen (Tylenol Tab) 1,000 mg TID PO 4/21/21 16:00 11/09/20 08:48 Artificial Tears (Akwa Tears) 2 drop TID OU 11/01/20 16:00 11/09/20 08:52 Ascorbic Acid (Vitamin C) 500 mg DAILY PO 11/02/20 09:00 11/09/20 08:47 Aspirin (Ecotrin) 325 mg DAILY PO 11/02/20 09:00 11/09/20 08:47 Atorvastatin Calcium (Lipitor) 40 mg QHS PO 11/01/20 21:00 11/08/20 20:31 Baclofen (Lioresal) 5 mg BID@0800,1400 PO 11/01/20 14:00 11/09/20 08:47 Baclofen (Lioresal) 10 mg QHS PO 11/01/20 21:00 11/08/20 20:32 Calcium Carbonate (Calcium Carbonate) 1,250 mg DAILY PO 11/01/20 09:00 11/09/20 08:48 Docusate Sodium (Colace) 200 mg BID PO 11/01/20 21:00 11/09/20 08:47 Ferrous Sulfate (Ferrous Sulfate) 325 mg BID PO 11/01/20 21:00 11/09/20 08:47 Fluticasone Propionate (Flonase 0.05% Nasal [place]) 1 spray BID NARES 11/01/20 21:00 11/09/20 08:52 Folic Acid (Folic Acid) 1 mg DAILY PO 11/02/20 09:00 11/09/20 08:48 Heparin Sodium (Porcine) (Heparin) 5,000 units Q12H SC 11/02/20 09:00 11/08/20 20:52 DC 11/08/20 20:33 Home Med (Med Rec Complete!) ASDIRECTED XX 11/01/20 12:55 11/01/20 12:58 DC Ipratropium [place] (Atrovent 0.06%) 2 spray BID NA 11/01/20 21:00 11/09/20 08:52 Lactobacillus Acidophilus (Bacid) 1 ea DAILY PO 11/01/20 09:00 11/01/20 19:54 DC Lactobacillus Acidophilus (Bacid) 1 ea DAILY PO 11/02/20 09:00 11/09/20 08:48 Lidocaine (Lidoderm Patch) 1 patch DAILY@2100 TD 11/01/20 21:00 11/08/20 20:33 Metformin HCl (Glucophage Xr) 500 mg DAILY@18 PO 11/01/20 18:00 11/08/20 16:50 Metoprolol Tartrate (Lopressor) 25 mg BID PO 11/01/20 21:00 11/09/20 08:51 Nitrofurantoin Monoh/Nitrofur Macro (Macrobid) 100 mg DAILY PO 11/01/20 09:00 11/01/20 19:54 DC Nitrofurantoin Monoh/Nitrofur Macro (Macrobid) 100 mg DAILY PO 11/02/20 09:00 11/09/20 08:48 Non-Formulary Medication ( See Comment Field Below ) REMOVE LIDODERM PATCH DAILY@0900 XX 11/02/20 09:00 11/09/20 08:57 Omeprazole (PriLOSEC) 20 mg DAILY PO 11/02/20 09:00 11/09/20 08:47 Polyethylene Glycol (Miralax) 1 pkt DAILY PRN PO CONSTIPATION 11/02/20 09:00 11/07/20 09:15 Ramipril (Altace) 1.25 mg DAILY PO 11/02/20 09:00 11/09/20 08:51 Senna (Senokot) 1 tab QHS PO 11/01/20 21:00 11/08/20 20:32 Vitamin D (Vitamin D) 1,000 units DAILY PO 11/01/20 09:00 11/09/20 08:52 KRISTINA CADENA MD Nov 09, 2020 10:26
[2020-11-09 14:00] VITALS: BP 113/64
[2020-11-09] MEDS: metFORMIN XR 500MG TAB *GLUCOPHAGE XR PO SCH (16:57)
[2020-11-09 20:00] VITALS: BP 141/75
[2020-11-09] MEDS: SENNA 8.6 MG TAB (SENOKOT) PO SCH (20:26)
[2020-11-09] MEDS: BACLOFEN 10 MG TAB PO SCH (20:26)
[2020-11-09] MEDS: ATORVASTATIN 20 MG TAB PO SCH (20:27)
[2020-11-09] MEDS: LIDOCAINE 5% (LIDODERM) PATCH TD SCH (20:27)
[2020-11-10 05:35] VITALS: BP 105/59
[2020-11-10] MEDS: LACTOBACILLUS ACIDOPHILUS CAP (BACID) PO SCH (08:29)
[2020-11-10] MEDS: OMEPRAZOLE 20 MG CAP PO SCH (08:29)
[2020-11-10] MEDS: BACLOFEN 5MG PER 1/2 TABLET PO SCH ×2 (08:30→13:08)
[2020-11-10] MEDS: DOCUSATE SODIUM 100MG CAPSULE PO SCH ×2 (08:30→20:22)
[2020-11-10] MEDS: FOLIC ACID 1 MG TAB PO SCH (08:30)
[2020-11-10] MEDS: CALCIUM CARB SUSP 1250MG/5ML UNIT DOSE CUP PO SCH (08:30)
[2020-11-10] MEDS: NITROFURANTOIN (MACROBID) 100 MG CAP PO SCH (08:30)
[2020-11-10] MEDS: VITAMIN D 1,000 INTERNATIONAL UNITS TABLET PO SCH (08:30)
[2020-11-10] MEDS: FERROUS SULFATE 325MG TAB PO SCH ×2 (08:30→20:22)
[2020-11-10] MEDS: ASCORBIC ACID 500 MG TAB PO SCH (08:30)
[2020-11-10] MEDS: POLYVINYL ALCOHOL OPHTH SOLN 15 ML(LIQUITEARS) OU SCH ×3 (08:31→20:22)
[2020-11-10] MEDS: FLUTICASONE PROP 0.05% NASAL SPRAY 16 GM (FLONASE) NARES SCH ×2 (08:31→20:25)
[2020-11-10] MEDS: ACETAMINOPHEN 500 MG TAB PO SCH ×3 (08:31→20:24)
[2020-11-10] MEDS: IPRATROPIUM 0.06% NASAL SPRAY 15 ML (ATROVENT) SCH ×2 (08:31→20:24)
[2020-11-10] MEDS: METOPROLOL TART 25 MG TABLET PO SCH ×2 (08:38→20:23)
[2020-11-10] MEDS: ramipriL 1.25 MG CAP PO SCH (08:38)
[2020-11-10] MEDS: MIRALAX *UNIT DOSE* 17GM PACKET PO PRN (08:38)
[2020-11-10] MEDS: REMEDY PHYTOPLEX Z-GUARD PASTE 113GM TUBE (FROM STOREROOM PRODUCT) TOP SCH ×3 (08:39→20:25)
[2020-11-10] MEDS: ASPIRIN ENTERIC 325 MG TAB PO SCH (08:39)
[2020-11-10 09:06] LABS: BASO # 0.1 10^3/uL (0.0-0.2); BASO % 0.9 % (0.0-1.0); EOS # 0.3 10^3/uL (0.0-0.5); EOS % 5.8 % (0.0-3.0); HEMATOCRIT 34.6 % (42.0-52.0); HEMOGLOBIN 10.8 g/dl (13.5-17.5); LYMPH # 1.2 10^3/uL (1.5-5.0); LYMPH % 20.2 % (24.0-44.0); MEAN CORPUSCULAR HGB CONC 31.2 g/dl (32.0-36.5); MEAN CORPUSCULAR VOLUME 96.1 fl (80.0-96.0); MONO # 0.5 10^3/uL (0.0-0.8); MONO % 7.7 % (2.0-8.0); NEUTROPHILS # 3.8 10^3/uL (1.5-8.5); NEUTROPHILS % 64.9 % (36.0-66.0); PLATELET COUNT, AUTOMATED 465 10^3/uL (150-450); WHITE BLOOD COUNT 5.8 10^3/uL (4.0-10.0)
[2020-11-10] MEDS ORDERED: ALTA1CAP PO (09:06)
[2020-11-10] MEDS ORDERED: FERR1TAB8 PO (09:06)
[2020-11-10] MEDS ORDERED: BACL10TA2 PO (09:06)
[2020-11-10] MEDS ORDERED: GLUCTAB PO (09:06)
[2020-11-10] MEDS ORDERED: ASPI32ECTA PO (09:06)
[2020-11-10] MEDS ORDERED: ASCO50TA PO (09:06)
[2020-11-10] MEDS ORDERED: ATOR40TA75 PO (09:06)
[2020-11-10] MEDS ORDERED: NITR100C2 PO (09:06)
[2020-11-10] MEDS ORDERED: IPRA6SP (09:06)
[2020-11-10] MEDS ORDERED: RISATAB3 PO (09:06)
[2020-11-10] MEDS ORDERED: FOLI1TAB11 PO (09:06)
[2020-11-10] MEDS ORDERED: METO1TAB87 PO (09:06)
[2020-11-10] MEDS ORDERED: OMEP-218 PO (09:06)
[2020-11-10] MEDS ORDERED: FLUTISP NARES (09:06)
[2020-11-10 09:32] LABS: BLOOD UREA NITROGEN 25 MG/DL (7-18); CALCIUM LEVEL 9.2 MG/DL (8.8-10.2); CARBON DIOXIDE LEVEL 30 MEQ/L (21-32); CHLORIDE LEVEL 104 MEQ/L (98-107); CREATININE FOR GFR 1.18 MG/DL (0.70-1.30); GLOMERULAR FILTRATION RATE > 60.0 (>42); GLUCOSE, FASTING 146 MG/DL (70-100); POTASSIUM SERUM 5.4 MEQ/L (3.5-5.1); SODIUM LEVEL 137 MEQ/L (136-145)
[2020-11-10] MEDS ORDERED: PATIROMER SORBITEX CALCIUM 8.4 GM POWDER PACKET (VELTASSA) PO ONE (12:00)
[2020-11-10 15:00] VITALS: BP 115/60
[2020-11-10] MEDS: metFORMIN XR 500MG TAB *GLUCOPHAGE XR PO SCH (16:53)
[2020-11-10 20:15] VITALS: BP 126/67
[2020-11-10] MEDS: LIDOCAINE 5% (LIDODERM) PATCH TD SCH (20:21)
[2020-11-10] MEDS: SENNA 8.6 MG TAB (SENOKOT) PO SCH (20:22)
[2020-11-10] MEDS: BACLOFEN 10 MG TAB PO SCH (20:22)
[2020-11-10] MEDS: ATORVASTATIN 20 MG TAB PO SCH (20:22)
--- NOTE | 2020-11-10 20:41 | IPNPDOC ---
PM&R Progress Note DATE OF SERVICE: Nov 10, 2020 Med Peds Progress Note Subjective: Patient has no complaints today. He is concerned about keeping up his activity level once he goes home. REVIEW OF SYSTEMS: The following is a completed review of systems and has been reviewed. Review of systems otherwise unremarkable. PAIN: Patient self reports no pain EYES: No recent vision changes EARS, NOSE, & THROAT: No throat pain, or dysphagia, or rhinorrhea CARDIOVASCULAR: Denies chest pain or palpitations PULMONARY: Denies shortness of breath GASTROINTESTINAL: Denies constipation/diarrhea GENITOURINARY: +mijares MUSCULOSKELETAL: generalized weakness NEUROLOGICAL:+bilat LE paresis HEMATOLOGICAL: +anemia SKIN: RLE surgical incision PSYCHIATRIC: Unremarkable All other review of systems found to be negative. PHYSICAL EXAMINATION: VITAL SIGNS: Please see below. GENERAL: Pleasant and cooperative. No acute distress. HEENT: PERRL. Extraocular movements intact. Clear conjunctiva CARDIOVASCULAR: Regular rate and rhythm. No murmurs, rubs, or gallops, sternal incision c/d/i LUNGS: Clear to auscultation bilaterally. No wheezes. No rhonchi ABDOMEN: Soft, nontender, mildly distended. Positive bowel sounds. Normal active bowel sounds NEUROLOGICAL: Alert and oriented times three. Cranial nerves II through XII grossly intact. Sensation grossly intact] EXTREMITIES: 4+\\5 strength bilateral upper extremities. 3/5 bilat hip flexors and knee extension 2/5 bilat DF +RLE edema (improving) SKIN:sternal incision with dermabond- c/d/i ASSESSMENT:75-year-old M with past medical history of MS who presents status post CABG x2 PLAN: 1. Rehab-PT/OT advance mobility and ADLs, strengthen/stretch/maintain ROM all 4limbs 2. Neuro- hx of MS c/u baclofen, energy conservation s/p new cardiac procedure 3. CArdiac- s/p CABG x2 10-20-[address] Palafox, on ASA 325mg daily- modified sternal precautions -hx of LE arterial thrombus s/p tpa in 2008 on Xarelto recently d/c'd at [facility], LE doppler performed at [facility] 10-24-20 showing, "Popliteal artery aneurysm with mural thrombus measuring 2.7 cm x 2.9 cm" discussed with Dr. Palafox's CHIEF OF PRODUCTION who stated from a cardiac-surgery standpoint he does not need to be on Xarelto any longer, spoke with [place] clinic nurse today who clarified patient had been on xarelto 2.5 mg BID in addition to baby ASA for PAD, a regimen suggested to be effective for PAD in the Compass trial- given patient's hx of hematruia and post-op anemia will continue ASA 325mg for now, patient has f/u with [place] vascular surgical team - diastolic CHF- daily weight, fluid restrict, appears euvolemic - HTN- c/u BP meds - HLD- statin -medicine consulted to assist in overall mangement 4. Resp- hx of ROCHELLE nocturnal 02 -monitor for infection 5. endo- hx of DM c/u metformin and ISS 6. DVT ppx- patient requesting no further heparin, he is ambulating well and on ASA 325mg -dopplers negative for DVT, +chronic left popliteal artery aneurysm 7. GI ppx- omeprazole 8. - change mijares changed, 11-03-20, c/u prophylactic macrobid -hx of hematuria, monitor 9. Pain- tylenol prn and lidoderm patch 10. Dispo- 11-13-20 to home, progressing towards goals Allergies Coded Allergies: gabapentin (Verified Adverse Reaction, Intermediate, elevates MS symptoms, 10/20/20) modafinil (Verified Adverse Reaction, Intermediate, elevate MS symptoms, 10/20/20) Vunqrcn-Vln-Tzy Reductase Inhibitor (Verified Adverse Reaction, Mild, "PASSES OUT", 10/20/20) glatiramer (copolymer 1) (Verified Adverse Reaction, Mild, weakness, 10/20/20) Vital Signs Vital Signs Date Time Temp Pulse Resp B/P (MAP) Pulse Ox O2 Delivery O2 Flow Rate FiO2 11/10/20 20:23 81 126/67 11/10/20 15:00 96.8 18 98 Room Air Laboratory Data CBC/BMP Laboratory Tests 11/10/20 07:55 Labs 24H Laboratory Tests 2 11/10/20 04:59: Bedside Glucose (Misc Panel) 112H 11/10/20 07:55: Immature Granulocyte % (Auto) 0.5, Neutrophils (%) (Auto) 64.9, Lymphocytes (%) (Auto) 20.2L, Monocytes (%) (Auto) 7.7, Eosinophils (%) (Auto) 5.8H, Basophils (%) (Auto) 0.9, Neutrophils # (Auto) 3.8, Lymphocytes # (Auto) 1.2L, Monocytes # (Auto) 0.5, Eosinophils # (Auto) 0.3, Basophils # (Auto) 0.1, Nucleated Red Blood Cells % (auto) 0.0, Anion Gap 3L, Glomerular Filtration Rate > 60.0, Calcium Level 9.2 11/10/20 16:27: Bedside Glucose (Misc Panel) 145H Current Medications Current Medications Current Medications Medications (Trade) Dose Ordered Sig/Avelino Route PRN Reason Start Time Stop Time Status Last Admin Dose Admin Acetaminophen (Tylenol Tab) 1,000 mg TID PO 11/01/20 16:00 11/10/20 20:24 Artificial Tears (Akwa Tears) 2 drop TID OU 11/01/20 16:00 11/10/20 20:22 Ascorbic Acid (Vitamin C) 500 mg DAILY PO 11/02/20 09:00 11/10/20 08:30 Aspirin (Ecotrin) 325 mg DAILY PO 11/02/20 09:00 11/10/20 08:39 Atorvastatin Calcium (Lipitor) 40 mg QHS PO 11/01/20 21:00 11/10/20 20:22 Baclofen (Lioresal) 5 mg BID@0800,1400 PO 11/01/20 14:00 11/10/20 13:08 Baclofen (Lioresal) 10 mg QHS PO 11/01/20 21:00 11/10/20 20:22 Calcium Carbonate (Calcium Carbonate) 1,250 mg DAILY PO 11/01/20 09:00 11/10/20 08:30 Docusate Sodium (Colace) 200 mg BID PO 11/01/20 21:00 11/10/20 20:22 Ferrous Sulfate (Ferrous Sulfate) 325 mg BID PO 11/01/20 21:00 11/10/20 20:22 Fluticasone Propionate (Flonase 0.05% Nasal [place]) 1 spray BID NARES 11/01/20 21:00 11/10/20 08:31 Folic Acid (Folic Acid) 1 mg DAILY PO 11/02/20 09:00 11/10/20 08:30 Heparin Sodium (Porcine) (Heparin) 5,000 units Q12H SC 11/02/20 09:00 11/08/20 20:52 DC 11/08/20 20:33 Home Med (Med Rec Complete!) ASDIRECTED XX 11/01/20 12:55 11/01/20 12:58 DC Ipratropium [place] (Atrovent 0.06%) 2 spray BID NA 11/01/20 21:00 11/10/20 08:31 Lactobacillus Acidophilus (Bacid) 1 ea DAILY PO 11/01/20 09:00 11/01/20 19:54 DC Lactobacillus Acidophilus (Bacid) 1 ea DAILY PO 11/02/20 09:00 11/10/20 08:29 Lidocaine (Lidoderm Patch) 1 patch DAILY@2100 TD 11/01/20 21:00 11/10/20 20:21 Metformin HCl (Glucophage Xr) 500 mg DAILY@18 PO 11/01/20 18:00 11/10/20 16:53 Metoprolol Tartrate (Lopressor) 25 mg BID PO 11/01/20 21:00 11/10/20 20:23 Nitrofurantoin Monoh/Nitrofur Macro (Macrobid) 100 mg DAILY PO 11/01/20 09:00 11/01/20 19:54 DC Nitrofurantoin Monoh/Nitrofur Macro (Macrobid) 100 mg DAILY PO 11/02/20 09:00 11/10/20 08:30 Non-Formulary Medication ( See Comment Field Below ) REMOVE LIDODERM PATCH DAILY@0900 XX 11/02/20 09:00 11/10/20 09:48 Omeprazole (PriLOSEC) 20 mg DAILY PO 11/02/20 09:00 11/10/20 08:29 Polyethylene Glycol (Miralax) 1 pkt DAILY PRN PO CONSTIPATION 11/02/20 09:00 11/10/20 08:38 Ramipril (Altace) 1.25 mg DAILY PO 11/02/20 09:00 11/10/20 08:38 Senna (Senokot) 1 tab QHS PO 11/01/20 21:00 11/10/20 20:22 Vitamin D (Vitamin D) 1,000 units DAILY PO 11/01/20 09:00 11/10/20 08:30 KRISTINA CADENA MD Nov 10, 2020 20:41
[2020-11-11 05:49] VITALS: BP 111/73
[2020-11-11 07:29] LABS: BLOOD UREA NITROGEN 30 MG/DL (7-18); CALCIUM LEVEL 9.6 MG/DL (8.8-10.2); CARBON DIOXIDE LEVEL 28 MEQ/L (21-32); CHLORIDE LEVEL 105 MEQ/L (98-107); CREATININE FOR GFR 1.07 MG/DL (0.70-1.30); GLOMERULAR FILTRATION RATE > 60.0 (>42); GLUCOSE, FASTING 127 MG/DL (70-100); POTASSIUM SERUM 5.1 MEQ/L (3.5-5.1); SODIUM LEVEL 139 MEQ/L (136-145)
[2020-11-11] MEDS: ASPIRIN ENTERIC 325 MG TAB PO SCH (08:34)
[2020-11-11] MEDS: OMEPRAZOLE 20 MG CAP PO SCH (08:34)
[2020-11-11] MEDS: DOCUSATE SODIUM 100MG CAPSULE PO SCH ×2 (08:34→20:17)
[2020-11-11] MEDS: BACLOFEN 5MG PER 1/2 TABLET PO SCH ×2 (08:34→14:14)
[2020-11-11] MEDS: FOLIC ACID 1 MG TAB PO SCH (08:34)
[2020-11-11] MEDS: CALCIUM CARB SUSP 1250MG/5ML UNIT DOSE CUP PO SCH (08:34)
[2020-11-11] MEDS: FERROUS SULFATE 325MG TAB PO SCH ×2 (08:34→20:18)
[2020-11-11] MEDS: VITAMIN D 1,000 INTERNATIONAL UNITS TABLET PO SCH (08:34)
[2020-11-11] MEDS: METOPROLOL TART 25 MG TABLET PO SCH ×2 (08:35→20:17)
[2020-11-11] MEDS: LACTOBACILLUS ACIDOPHILUS CAP (BACID) PO SCH (08:35)
[2020-11-11] MEDS: ASCORBIC ACID 500 MG TAB PO SCH (08:35)
[2020-11-11] MEDS: NITROFURANTOIN (MACROBID) 100 MG CAP PO SCH (08:36)
[2020-11-11] MEDS: ramipriL 1.25 MG CAP PO SCH (08:37)
[2020-11-11] MEDS: ACETAMINOPHEN 500 MG TAB PO SCH ×3 (08:38→20:16)
[2020-11-11] MEDS: IPRATROPIUM 0.06% NASAL SPRAY 15 ML (ATROVENT) SCH ×2 (08:41→20:19)
[2020-11-11] MEDS: REMEDY PHYTOPLEX Z-GUARD PASTE 113GM TUBE (FROM STOREROOM PRODUCT) TOP SCH ×3 (08:41→20:18)
[2020-11-11] MEDS: FLUTICASONE PROP 0.05% NASAL SPRAY 16 GM (FLONASE) NARES SCH ×2 (08:41→20:19)
[2020-11-11] MEDS: POLYVINYL ALCOHOL OPHTH SOLN 15 ML(LIQUITEARS) OU SCH ×3 (08:42→20:18)
[2020-11-11] MEDS: MIRALAX *UNIT DOSE* 17GM PACKET PO PRN (08:45)
[2020-11-11 14:00] VITALS: BP 139/74
[2020-11-11] MEDS: metFORMIN XR 500MG TAB *GLUCOPHAGE XR PO SCH (17:35)
[2020-11-11] MEDS: LIDOCAINE 5% (LIDODERM) PATCH TD SCH (20:13)
[2020-11-11 20:15] VITALS: BP 127/74
[2020-11-11] MEDS: SENNA 8.6 MG TAB (SENOKOT) PO SCH (20:16)
[2020-11-11] MEDS: ATORVASTATIN 20 MG TAB PO SCH (20:18)
[2020-11-11] MEDS: BACLOFEN 10 MG TAB PO SCH (20:18)
[2020-11-12 05:17] VITALS: BP 124/60
[2020-11-12] MEDS: MIRALAX *UNIT DOSE* 17GM PACKET PO PRN (07:42)
[2020-11-12] MEDS: ACETAMINOPHEN 500 MG TAB PO SCH ×3 (07:42→20:09)
[2020-11-12] MEDS: CALCIUM CARB SUSP 1250MG/5ML UNIT DOSE CUP PO SCH (07:42)
[2020-11-12] MEDS: DOCUSATE SODIUM 100MG CAPSULE PO SCH ×2 (07:43→20:08)
[2020-11-12] MEDS: FERROUS SULFATE 325MG TAB PO SCH ×2 (07:43→20:08)
[2020-11-12] MEDS: LACTOBACILLUS ACIDOPHILUS CAP (BACID) PO SCH (07:43)
[2020-11-12] MEDS: NITROFURANTOIN (MACROBID) 100 MG CAP PO SCH (07:44)
[2020-11-12] MEDS: ramipriL 1.25 MG CAP PO SCH (07:44)
[2020-11-12] MEDS: FOLIC ACID 1 MG TAB PO SCH (07:45)
[2020-11-12] MEDS: ASPIRIN ENTERIC 325 MG TAB PO SCH (07:45)
[2020-11-12] MEDS: METOPROLOL TART 25 MG TABLET PO SCH ×2 (07:45→20:09)
[2020-11-12] MEDS: ASCORBIC ACID 500 MG TAB PO SCH (07:45)
[2020-11-12] MEDS: OMEPRAZOLE 20 MG CAP PO SCH (07:45)
[2020-11-12] MEDS: BACLOFEN 5MG PER 1/2 TABLET PO SCH ×2 (07:45→14:22)
[2020-11-12] MEDS: VITAMIN D 1,000 INTERNATIONAL UNITS TABLET PO SCH (07:46)
[2020-11-12] MEDS: POLYVINYL ALCOHOL OPHTH SOLN 15 ML(LIQUITEARS) OU SCH ×3 (07:54→20:10)
[2020-11-12] MEDS: IPRATROPIUM 0.06% NASAL SPRAY 15 ML (ATROVENT) SCH ×2 (07:54→20:08)
[2020-11-12] MEDS: FLUTICASONE PROP 0.05% NASAL SPRAY 16 GM (FLONASE) NARES SCH ×2 (07:54→20:08)
[2020-11-12] MEDS: REMEDY PHYTOPLEX Z-GUARD PASTE 113GM TUBE (FROM STOREROOM PRODUCT) TOP SCH ×3 (07:56→20:10)
[2020-11-12 14:00] VITALS: BP 112/67
[2020-11-12] MEDS: metFORMIN XR 500MG TAB *GLUCOPHAGE XR PO SCH (16:55)
[2020-11-12] MEDS: ATORVASTATIN 20 MG TAB PO SCH (20:08)
[2020-11-12] MEDS: BACLOFEN 10 MG TAB PO SCH (20:08)
[2020-11-12] MEDS: SENNA 8.6 MG TAB (SENOKOT) PO SCH (20:08)
[2020-11-12] MEDS: LIDOCAINE 5% (LIDODERM) PATCH TD SCH (20:09)
[2020-11-12 20:15] VITALS: BP 152/80
[2020-11-12 21:00] VITALS: BP 163/79
[2020-11-13 06:00] VITALS: BP 141/81
[2020-11-13] MEDS: CALCIUM CARB SUSP 1250MG/5ML UNIT DOSE CUP PO SCH (08:59)
[2020-11-13] MEDS: BACLOFEN 5MG PER 1/2 TABLET PO SCH (08:59)
[2020-11-13] MEDS: ramipriL 1.25 MG CAP PO SCH (08:59)
[2020-11-13] MEDS: LACTOBACILLUS ACIDOPHILUS CAP (BACID) PO SCH (08:59)
[2020-11-13] MEDS: OMEPRAZOLE 20 MG CAP PO SCH (09:00)
[2020-11-13] MEDS: NITROFURANTOIN (MACROBID) 100 MG CAP PO SCH (09:00)
[2020-11-13] MEDS: ASPIRIN ENTERIC 325 MG TAB PO SCH (09:00)
[2020-11-13] MEDS: DOCUSATE SODIUM 100MG CAPSULE PO SCH (09:00)
[2020-11-13] MEDS: VITAMIN D 1,000 INTERNATIONAL UNITS TABLET PO SCH (09:00)
[2020-11-13] MEDS: FERROUS SULFATE 325MG TAB PO SCH (09:00)
[2020-11-13] MEDS: ACETAMINOPHEN 500 MG TAB PO SCH (09:00)
[2020-11-13] MEDS: FOLIC ACID 1 MG TAB PO SCH (09:00)
[2020-11-13 09:01] VITALS: BP 152/81
[2020-11-13] MEDS: ASCORBIC ACID 500 MG TAB PO SCH (09:01)
[2020-11-13] MEDS: METOPROLOL TART 25 MG TABLET PO SCH (09:01)
[2020-11-13] MEDS: POLYVINYL ALCOHOL OPHTH SOLN 15 ML(LIQUITEARS) OU SCH (09:02)
[2020-11-13] MEDS: REMEDY PHYTOPLEX Z-GUARD PASTE 113GM TUBE (FROM STOREROOM PRODUCT) TOP SCH (09:02)
[2020-11-13] MEDS: FLUTICASONE PROP 0.05% NASAL SPRAY 16 GM (FLONASE) NARES SCH (09:02)
[2020-11-13] MEDS: IPRATROPIUM 0.06% NASAL SPRAY 15 ML (ATROVENT) SCH (09:02)
== END 2020-11-13 13:15 | disposition home health service (06) | DRG 282 ==
LOC: M PM&R 12:16
PROVIDERS: ADMIT Physical Medicine & Rehabilitation; ATTEND Physical Medicine & Rehabilitation
DX: I21.4 Non-ST elevation (NSTEMI) myocardial infarction (principal); R53.1 Weakness; R33.9 Retention of urine, unspecified; N31.9 Neuromuscular dysfunction of bladder, unspecified; I10 Essential (primary) hypertension; G47.33 Obstructive sleep apnea (adult) (pediatric); I71.4 Abdominal aortic aneurysm, without rupture; Z95.1 Presence of aortocoronary bypass graft; Z74.09 Other reduced mobility; Z74.1 Need for assistance with personal care; Z79.82 Long term (current) use of aspirin; Z79.899 Other long term (current) drug therapy; Z88.8 Allergy status to other drugs, medicaments and biological substances; G35 Multiple sclerosis; I25.10 Atherosclerotic heart disease of native coronary artery without angina pectoris; E11.9 Type 2 diabetes mellitus without complications; E78.5 Hyperlipidemia, unspecified; K74.60 Unspecified cirrhosis of liver; K59.00 Constipation, unspecified; D50.9 Iron deficiency anemia, unspecified

== ENCOUNTER → 2020-12-22 | Outpatient (REF) | payer MEDICARE ==
[~2020-12-22] MED LIST changes: +ALTA1CAP PO; +ASCO500T PO; +ASCO50TA PO; +ASPI325T48 PO; +ASPI32ECTA PO; +ATOR40TA75 PO; +BISA10SU PR; +ENOX40IN3 SC; +FAMO20TA PO; +FERR1TAB8 PO; +FOLI1TAB11 PO; +GLUCTAB PO; +IPRA6SP; -LACTOBACILLUS ACIDOPHILUS CAP (BACID) PO SCH; +LIDO5DIS41 TD; +MELATAB7 PO; +METO25TA4 PO; -NITROFURANTOIN (MACROBID) 100 MG CAP PO SCH; +RAMI1CAP21 PO
[2020-12-22 11:32] LABS: HEMATOCRIT 44.1 % (42.0-52.0); HEMOGLOBIN 13.7 g/dl (13.5-17.5); MEAN CORPUSCULAR HEMOGLOBIN 28.2 pg (27.0-33.0); MEAN CORPUSCULAR HGB CONC 31.1 g/dl (32.0-36.5); MEAN CORPUSCULAR VOLUME 90.7 fl (80.0-96.0); PLATELET COUNT, AUTOMATED 361 10^3/uL (150-450); RED BLOOD COUNT 4.86 10^6/uL (4.30-6.10); WHITE BLOOD COUNT 10.4 10^3/uL (4.0-10.0)
[2020-12-22 13:31] LABS: ALBUMIN 3.6 GM/DL (3.2-5.2); ALT/SGPT 91 U/L (12-78); BILIRUBIN,TOTAL 0.4 MG/DL (0.2-1.0); BLOOD UREA NITROGEN 31 MG/DL (7-18); CALCIUM LEVEL 9.1 MG/DL (8.8-10.2); CARBON DIOXIDE LEVEL 29 MEQ/L (21-32); CHLORIDE LEVEL 100 MEQ/L (98-107); CHOLESTEROL LEVEL 130 MG/DL (<200); CHOLESTEROL RISK RATIO 3.611 (<5); CREATININE FOR GFR 1.21 MG/DL (0.70-1.30); GLOMERULAR FILTRATION RATE > 60.0 (>42); GLUCOSE, FASTING 121 MG/DL (70-100); HDL CHOLESTEROL 36 MG/DL (>40); LDL CHOLESTEROL 73 MG/DL (<100); NON-HDL-C 94 MG/DL; POTASSIUM SERUM 4.7 MEQ/L (3.5-5.1); SODIUM LEVEL 135 MEQ/L (136-145); TOTAL PROTEIN 8.7 GM/DL (6.4-8.2); TRIGLYCERIDES LEVEL 103 MG/DL (<150)
[2020-12-22 21:21] LABS: HEMOGLOBIN A1c 6.2 %
== END ==
LOC: M PLALAB 08:06
PROVIDERS: ATTEND Family Medicine
DX: I74.3 Embolism and thrombosis of arteries of the lower extremities (principal); E11.9 Type 2 diabetes mellitus without complications; Z95.1 Presence of aortocoronary bypass graft; I25.10 Atherosclerotic heart disease of native coronary artery without angina pectoris

== ENCOUNTER → 2021-01-02 | Outpatient (REF) | payer MEDICARE ==
[2021-01-02 17:33] LABS: APPEARANCE, URINE HAZY (CLEAR); BACTERIA, URINE AUTO 1+ (NEGATIVE); BILIRUBIN, URINE AUTO NEGATIVE (NEGATIVE); BLOOD, URINE BLOOD 2+ (NEGATIVE); COLOR, URINE YELLOW (YELLOW); GLUCOSE, URINE (UA) AUTO NEGATIVE (NEGATIVE); KETONE, URINE AUTO NEGATIVE (NEGATIVE); LEUKOCYTE ESTERASE, URINE AUTO 2+ (NEGATIVE); NITRITE, URINE AUTO NEGATIVE (NEGATIVE); PROTEIN, URINE AUTO NEGATIVE (NEGATIVE); RBC, URINE AUTO 123 /HPF (0-3); SPECIFIC GRAVITY URINE AUTO 1.011 (1.002-1.035); SQUAMOUS EPITHELIAL CELL UR AU 0 /HPF (0-6); UROBILINOGEN, URINE AUTO 0.2 mg/dL (0.0-2.0); WBC, URINE AUTO 52 /HPF (0-3)
== END ==
LOC: M SMT 17:04
PROVIDERS: ATTEND Nurse Practitioner Women's Health
DX: N31.9 Neuromuscular dysfunction of bladder, unspecified (principal); Z79.899 Other long term (current) drug therapy
CPT/HCPCS: 51703; 51798; 81001; 87088; 87186; G0463

== ENCOUNTER → 2021-03-22 | Outpatient (REF) | payer MEDICARE ==
[2021-03-22 17:27] LABS: APPEARANCE, URINE TURBID (CLEAR); BACTERIA, URINE AUTO NEGATIVE (NEGATIVE); BILIRUBIN, URINE AUTO NEGATIVE (NEGATIVE); BLOOD, URINE BLOOD 3+ (NEGATIVE); COLOR, URINE YELLOW (YELLOW); GLUCOSE, URINE (UA) AUTO NEGATIVE (NEGATIVE); KETONE, URINE AUTO NEGATIVE (NEGATIVE); LEUKOCYTE ESTERASE, URINE AUTO 3+ (NEGATIVE); MUCUS, URINE SMALL (NEGATIVE); NITRITE, URINE AUTO NEGATIVE (NEGATIVE); PROTEIN, URINE AUTO 1+ mg/dL (NEGATIVE); RBC, URINE AUTO TNTC /HPF (0-3); SQUAMOUS EPITHELIAL CELL UR AU 1 /HPF (0-6); UROBILINOGEN, URINE AUTO 0.2 mg/dL (0.0-2.0); WBC, URINE AUTO TNTC /HPF (0-3)
== END ==
LOC: M SMT 16:53
PROVIDERS: ATTEND Urology
DX: R31.0 Gross hematuria (principal)

== ENCOUNTER → 2021-04-05 | Outpatient (CLI) | payer MEDICARE ==
--- NOTE | 2021-04-05 10:52 | REP ---
INDICATION: NON-PRESSURE CHRONIC ULCER, DISRUPTION OF SURGICAL WOUND. COMPARISON: None. TECHNIQUE: Four views of the right calf are provided. FINDINGS: Four views of the right tib fib demonstrate extensive vascular calcification. No fracture or subluxation is seen. No opaque foreign body noted. There is mild plantar calcaneal spurring. There is a surgical clip in the proximal calf medially. No fracture, subluxation, or other acute bony abnormality. IMPRESSION: No acute bony abnormality. Extensive vascular calcification. <Electronically signed by Easton Muniz > 04/05/21 [id number]
== END ==
LOC: M WUC 09:57
PROVIDERS: ATTEND Physician Assistant
DX: L97.812 Non-pressure chronic ulcer of other part of right lower leg with fat layer exposed (principal); T81.31XD Disruption of external operation (surgical) wound, not elsewhere classified, subsequent encounter

== ENCOUNTER → 2021-04-26 | Outpatient (CLI) | payer MEDICARE ==
[2021-04-26 11:09] LABS: ALBUMIN 3.4 GM/DL (3.2-5.2); BILIRUBIN,TOTAL 0.3 MG/DL (0.2-1.0); CALCIUM LEVEL 9.5 MG/DL (8.8-10.2); CREATININE FOR GFR 1.38 MG/DL (0.70-1.30); GLOMERULAR FILTRATION RATE 53.1 (>42); POTASSIUM SERUM 4.6 MEQ/L (3.5-5.1); TOTAL PROTEIN 8.6 GM/DL (6.4-8.2)
== END ==
LOC: M PLALAB 07:40
PROVIDERS: ATTEND Physician Assistant
DX: I25.10 Atherosclerotic heart disease of native coronary artery without angina pectoris (principal)

== ENCOUNTER → 2021-06-15 | Outpatient (CLI) | payer MEDICARE ==
[~2021-06-15] MED LIST changes: +ATOR80TA59 PO; +FLUC150T PO; +OXYB5TAB10 PO; +PROBCAP14 PO; +REFR0.5D8 OU
[2021-06-15 10:18] LABS: MEAN CORPUSCULAR HEMOGLOBIN 26.1 pg (27.0-33.0); MEAN CORPUSCULAR HGB CONC 31.6 g/dl (32.0-36.5); MEAN CORPUSCULAR VOLUME 82.8 fl (80.0-96.0); PLATELET COUNT, AUTOMATED 346 10^3/uL (150-450); RED BLOOD COUNT 4.59 10^6/uL (4.30-6.10)
[2021-06-15 10:35] LABS: ALBUMIN 3.6 GM/DL (3.2-5.2); BILIRUBIN,TOTAL 0.4 MG/DL (0.2-1.0); CALCIUM LEVEL 9.6 MG/DL (8.8-10.2); CHOLESTEROL RISK RATIO 3.042 (<5); CREATININE FOR GFR 1.28 MG/DL (0.70-1.30); GLOMERULAR FILTRATION RATE 57.9 (>42); POTASSIUM SERUM 4.5 MEQ/L (3.5-5.1); TOTAL PROTEIN 8.8 GM/DL (6.4-8.2)
== END ==
LOC: M PLALAB 07:58
PROVIDERS: ATTEND Family Medicine
DX: I11.9 Hypertensive heart disease without heart failure (principal); I25.10 Atherosclerotic heart disease of native coronary artery without angina pectoris; E11.9 Type 2 diabetes mellitus without complications; I74.3 Embolism and thrombosis of arteries of the lower extremities

== ENCOUNTER 2021-07-10 17:11 | Inpatient (IN) | payer MEDICARE ==
[~2021-07-10] VITALS: Ht 175.3 cm; Wt 88.7 kg
[~2021-07-10 17:11] MED LIST changes: -ATOR80TA59 PO; -FLUC150T PO; -OXYB5TAB10 PO; -PROBCAP14 PO; -REFR0.5D8 OU
--- NOTE | 2021-07-10 17:50 | REP ---
INDICATION: DYSPNEA/COUGH COMPARISON: 10/20/2020 TECHNIQUE: Portable AP view of the chest FINDINGS: Diffuse bilateral opacities (right greater than left) concerning for multifocal pneumonia versus COVID-19 pulmonary disease. No effusion. No pneumothorax. Evidence for prior sternotomy. Cardiac silhouette is stable and within normal limits. Skeletal structures intact. IMPRESSION: Bilateral infiltrates. Differential includes multifocal pneumonia and COVID-19 pulmonary disease. Follow-up to resolution is recommended. <Electronically signed by Modesto Hanna > 07/10/21 [id number]
[2021-07-10 17:55] LABS: BASO % 0.2 % (0.0-1.0); EOS # 0.1 10^3/uL (0.0-0.5); EOS % 1.5 % (0.0-3.0); HEMATOCRIT 31.5 % (42.0-52.0); HEMOGLOBIN 10.1 g/dl (13.5-17.5); LYMPH # 0.8 10^3/uL (1.5-5.0); LYMPH % 13.2 % (24.0-44.0); MEAN CORPUSCULAR HEMOGLOBIN 26.1 pg (27.0-33.0); MEAN CORPUSCULAR HGB CONC 32.1 g/dl (32.0-36.5); MEAN CORPUSCULAR VOLUME 81.4 fl (80.0-96.0); MONO # 0.5 10^3/uL (0.0-0.8); MONO % 7.6 % (2.0-8.0); NEUTROPHILS # 4.8 10^3/uL (1.5-8.5); PLATELET COUNT, AUTOMATED 244 10^3/uL (150-450); RED BLOOD COUNT 3.87 10^6/uL (4.30-6.10); WHITE BLOOD COUNT 6.2 10^3/uL (4.0-10.0)
[2021-07-10 18:32] LABS: ALT/SGPT 70 U/L (12-78); BILIRUBIN,DIRECT 0.1 MG/DL (0.0-0.2); BILIRUBIN,TOTAL 0.2 MG/DL (0.2-1.0); BLOOD UREA NITROGEN 28 MG/DL (7-18); CALCIUM LEVEL 9.4 MG/DL (8.8-10.2); CARBON DIOXIDE LEVEL 26 MEQ/L (21-32); CHLORIDE LEVEL 103 MEQ/L (98-107); CREATININE FOR GFR 0.99 MG/DL (0.70-1.30); GLOMERULAR FILTRATION RATE > 60.0 (>42); GLUCOSE, FASTING 164 MG/DL (70-100); NT-PRO BNP 271 PG/ML (<450); POTASSIUM SERUM 4.3 MEQ/L (3.5-5.1); SODIUM LEVEL 135 MEQ/L (136-145); THYROXINE (T4) 10.1 UG/DL (4.5-12.0); TOTAL PROTEIN 7.8 GM/DL (6.4-8.2)
[2021-07-10 18:42] LABS: RSV AMPLIFICATION NEGATIVE (NEGATIVE)
[2021-07-10] MEDS ORDERED: LevoFLOXacin IV 750 MG in IV 1 EA IV ONE (18:50)
[2021-07-10] MEDS ORDERED: OXYB5TAB10 PO (20:05)
[2021-07-10] MEDS ORDERED: HOME MED LIST COMPLETE! XX SCH (20:05)
[2021-07-10] MEDS ORDERED: DOCU100C16 PO (20:05)
[2021-07-10] MEDS ORDERED: REFR0.5D8 OU (20:05)
[2021-07-10] MEDS ORDERED: ASCO500T PO (20:05)
[2021-07-10] MEDS ORDERED: ATOR80TA59 PO (20:05)
[2021-07-10] MEDS ORDERED: XARE2.5T PO (20:05)
[2021-07-10] MEDS ORDERED: FLUC150T PO (20:05)
[2021-07-10] MEDS ORDERED: PROBCAP14 PO (20:05)
[2021-07-10] MEDS ORDERED: ASPI81TA26 PO (20:05)
[2021-07-10] MEDS ORDERED: MACR100C43 PO (20:05)
[2021-07-10] MEDS ORDERED: MIRA3350 PO (20:05)
[2021-07-10] MEDS ORDERED: NS 1,000 ML IV SCH (21:25)
[2021-07-10] MEDS ORDERED: hydrALAZINE 20MG/ML 1ML VIAL (J0360 PER 20MG) IV PRN (21:25)
[2021-07-10] MEDS ORDERED: DEXTROSE 50% 50 ML SYRINGE IV PRN (22:05)
[2021-07-10] MEDS ORDERED: GLUCOSE 4GM CHEW TABLET PO PRN (22:05)
[2021-07-10] MEDS ORDERED: GLUCAGON INJ 1MG VIAL SC PRN (22:05)
[2021-07-10 22:28] VITALS: BP 144/90
[2021-07-11] MEDS ORDERED: HumaLOG INSULIN (NovoLOG) PER UNIT SC SCH
--- NOTE | 2021-07-11 02:58 | HPEPDOC ---
General Date of Admission Jul 10, 2021 at 19:44 Date of Service: Jul 10, 2021 Chief Complaint The patient is a 76-year-old male admitted with a reason for visit of Pneumonia. History of Present Illness Mr. Smith, a 76-year-old gentleman presented to the emergency department for shortness of breath. He has been having shortness of breath for a while now but it is particularly become pronounced for a week and a half and has progressively worsened. He walks with a walker and walking a few steps is now leading to shortness of breath. He does not have any cough at all. He does not have hemoptysis. He has no chest pain. He does not have fever with chills. He has history of night sweats for several months now. He has past history of urinary tract infection as he has indwelling catheter. He has been on Macrobid for many months now; he gets Macrobid from [place] [facility]. He has no suprapubic pain or flank pain or burning in the urine or pain in the penile urethra at this time. When asked as to whether he coughs with liquid and solid foodstuffs, he does admit to the history but states that it is not consistently every time. He has GERD and has to keep his head end of the bed elevated last he should have regurgitation; he has experienced regurgitation in the middle of night on few occasions. He underwent CABG in October 2020. He was at rehabilitation facility at [facility] thereafter and was eventually discharged. He has no chest pain at present. He has no orthopnea or paroxysmal nocturnal dyspnea. He does not have abdominal pain, nausea, vomiting, diarrhea, blood in the stool, melena, abdominal distention, constipation, blood in the urine, headache, blurry vision, focal weakness of extremities, sensory symptoms on the face or extremities, joint pains, joint swellings, lymph node enlargement, skin rash, tongue ulcers, sore throat or symptoms of cold. Home Medications Scheduled Alpha Lipoic Acid (Alpha Lipoic Acid) 200 Mg Tab, 200 MG PO BID, (Reported) Ascorbic Acid (Ascorbic Acid) 500 Mg Tablet, 500 MG PO DAILY, (Reported) Aspirin (Aspirin EC) 81 Mg Tablet.dr, 81 MG PO QHS, (Reported) Atorvastatin Calcium (Atorvastatin Calcium) 80 Mg Tablet, 40 MG PO 3XW, (Reported) FRI/FRI/ Baclofen (Baclofen) 10 Mg Tablet, 10 MG PO QAM, (Reported) Baclofen (Baclofen) 10 Mg Tablet, 20 MG PO QHS, (Reported) Calcium Carbonate (Calcium) 500 Mg Tablet, 500 MG PO DAILY, (Reported) Cholecalciferol (Vitamin D3) (Vitamin D3) 1,000 Unit Tablet, 1,000 UNITS PO QPM, (Reported) Docusate Sodium (Docusate Sodium) 100 Mg Capsule, 200 MG PO BID, (Reported) Fluconazole (Fluconazole) 150 Mg Tablet, 150 MG PO 2XW, (Reported) FRIDAY/FRIDAY Fluticasone Propionate (Fluticasone Propionate) 16 Gm Stanton.susp, 1 SPRAY NARES DAILY, (Reported) Lactobacillus Acidophilus (Probiotic) 1 Each Capsule, 1 CAP PO BIDWM, (Reported) Metformin HCl (Metformin HCl ER) 500 Mg Tab.er.24h, 500 MG PO QPM, (Reported) Metoprolol Tartrate (Metoprolol Tartrate) 25 Mg Tablet, 25 MG PO BID, (Reported) Nitrofurantoin Monohyd/M-Cryst (Macrobid 100 mg Capsule) 100 Mg Capsule, 100 MG PO DAILY, (Reported) Omeprazole (Omeprazole) 20 Mg Capsule.dr, 20 MG PO DAILY, (Reported) Oxybutynin Chloride (Oxybutynin Chloride) 5 Mg Tablet, 5 MG PO BID, (Reported) Polyethylene Glycol 3350 (Miralax) 119 Gm Powder, 17 GM PO DAILY, (Reported) dilute in 8 ounces of water or juice Ramipril (Ramipril) 1.25 Mg Capsule, 1.25 MG PO DAILY, (Reported) Rivaroxaban (Xarelto) 2.5 Mg Tablet, 2.5 MG PO BID, (Reported) Scheduled PRN Ammonium Lactate (Ammonium Lactate) 12% Lotion, 1 DOSE TOP DAILY PRN for DRY SKIN, (Reported) APPLIES TO AREAS OF DRY SKIN Carboxymethylcellulose Sodium (Refresh Tears) 15 Ml Drops, 1 DROP OU QID PRN for DRY EYES, (Reported) Allergies Coded Allergies: gabapentin (Verified Adverse Reaction, Intermediate, elevates MS symptoms, 10/20/20) modafinil (Verified Adverse Reaction, Intermediate, elevate MS symptoms, ) Yqmqxmk-LRN-GxW Reductase Inhibitor (Verified Adverse Reaction, Mild, "PASSES OUT", 10/20/20) glatiramer (copolymer 1) (Verified Adverse Reaction, Mild, weakness, 10/20/20) Past Medical History Medical History Urinary tract infections: On nitrofurantoin for several months now Obstructive sleep apnea Liver cirrhosis Diabetes mellitus Coronary artery disease Multiple sclerosis Arterial thrombosis Surgical History CABG October 2020 Family History No history of interstitial lung disease in the family Social History * Smoker: Denies Alcohol: Denies A-FIB/CHADSVASC A-FIB History Current/History of A-Fib/PAF?: No Review of Systems Other systems 10 system review negative except as stated in the history of present illness. Physical Examination Other physical findings Vitals: Reviewed Examination: General: Obese body habitus. Decubitus: Supine. Oral examination: Parched oral mucosa. Head, neck and ENT: No cervical lymphadenopathy. Eyes: Moderate pallor. No icterus. Skin: No generalized skin rash. Cardiovascular: Regular rhythm. Tachycardia absent. Muffled S1. No murmur. Respiratory: No respiratory distress. Air entry equal on both sides. Velcro crackles in the lowermost chest bilaterally. No rhonchi or wheeze. No pleural friction rub. Abdominal: No abdominal distention. No tenderness. Bowel sounds normal. Genitourinary: No renal angle tenderness. No suprapubic tenderness. Indwelling catheter noted. Neurologic: Conscious, alert and oriented with respect to time place and person. Joints: No tenderness or swelling of joints. Extremities: No extremity swelling. Psychiatric: Normal mood and mood-congruent affect. Vital Signs Vital Signs Date Time Temp Pulse Resp B/P (MAP) Pulse Ox O2 Delivery O2 Flow Rate FiO2 07/10/21 22:28 97.1 86 20 144/90 (108) 92 Room Air Laboratory Data Labs 24H Laboratory Tests 2 07/10/21 17:27: Immature Granulocyte % (Auto) 0.5, Neutrophils (%) (Auto) 77.0H, Lymphocytes (%) (Auto) 13.2L, Monocytes (%) (Auto) 7.6, Eosinophils (%) (Auto) 1.5, Basophils (%) (Auto) 0.2, Neutrophils # (Auto) 4.8, Lymphocytes # (Auto) 0.8L, Monocytes # (Auto) 0.5, Eosinophils # (Auto) 0.1, Basophils # (Auto) 0.0, Nucleated Red Blood Cells % (auto) 0.0, Anion Gap 6L, Glomerular Filtration Rate > 60.0, Calcium Level 9.4, Total Bilirubin 0.2, Direct Bilirubin 0.1, Aspartate Amino Transf (AST/SGOT) 50H, Alanine Aminotransferase (ALT/SGPT) 70, Alkaline Phosphatase 180H, JY-Wbn-G-Type Natriuretic Peptide 271, Total Protein 7.8, Albumin 3.0L, Albumin/Globulin Ratio 0.6, Thyroid Stimulating Hormone (TSH) 1.060, Thyroxine (T4) 10.1, Coronavirus (COVID-19)(PCR) NEGATIVE, Influenza Type A (RT-PCR) NEGATIVE, Influenza Type B (RT-PCR) NEGATIVE, Respiratory Syncytial Virus (PCR) NEGATIVE 07/10/21 17:39: POC Troponin I (Misc) 0.00 07/10/21 18:34: Lactic Acid Level 1.5 07/11/21 00:06: Bedside Glucose (Misc Panel) 143H CBC/BMP Laboratory Tests 07/10/21 17:27 Microbiology Microbiology 07/10/21 Blood Culture, Received Pending 07/10/21 Blood Culture, Received Pending Assessment/Plan Nitrofurantoin pulmonary toxicity, probable Absence of cough, chest pain, sputum production, fever and leukocytosis favor noninfectious etiology. Examination: Velcro crackles in the lowermost chest bilaterally and posteriorly. Multifocal pneumonia reported on chest x-ray. Previous chest x-ray report reviewed: Pulmonary infiltrates were reported. Previous CT abdomen report reviewed: Pneumonia of the lower lungs was reported. Nitrofurantoin exposure at low-dose for more than a year now with presence of pulmonary abnormalities in the past as listed above. Precise duration of nitrofurantoin exposure needs to be confirmed from records from [place] clinic/hospital. High-resolution CT chest to be performed in a.m. Lowest oxygen saturation recorded, 94%: Oxygen administration by nasal cannula as required. Procalcitonin ordered; antibacterial (single-agent levofloxacin) to continue for now. Arterial thrombosis Rivaroxaban to continue. Hypertension Hydralazine to be used for systolic blood pressure greater than 160. Home medication regimen to continue. Obstructive sleep apnea CPAP to continue. Cirrhosis of liver Supportive care. Diabetes mellitus POC blood was monitoring and initially met sliding scale. Coronary artery disease Aspirin, statin and beta-jaiden to continue. MS Supportive care DVT prophylaxis [On therapeutic anticoagulation with rivaroxaban for atrial fibrillation] Coronavirus screening Tested negative on SARS COV 2 PCR in the emergency department. CPR status Full code confirmed from patient. Plan / VTE VTE Prophylaxis Ordered?: Yes Nathen Conrad Jul 11, 2021 02:58
[2021-07-11 06:00] VITALS: BP 129/72
[2021-07-11] MEDS: HumaLOG INSULIN (NovoLOG) PER UNIT SC SCH ×4 (07:30→22:36)
[2021-07-11] MEDS: DOCUSATE SODIUM 100MG CAPSULE PO SCH ×2 (09:05→20:56)
--- NOTE | 2021-07-11 10:37 | IPNPDOC ---
Text Note Date of Service The patient was seen on 07/11/21. NOTE Subjective: Patient is a 68-year-old male with a PMHx of Hx of CAD s/p CABG (10/2020), DM2, Cirrhosis, ROCHELLE, Chronic Urban catheter (2/2 Neurogenic bladder; on Nitrofurantoin for several months for apparent prophylaxis), MS, GERD who presented to the ER on 07/10 with complaints of SOB. Patient has reported progressive shortness of breath. Patient denies any significant cough. Has not experience any fever, chills Patient was seen and examined at the bedside. Currently patient denies any nausea, vomiting, chest pain, or palpitations. Patient does report shortness of breath that is progressive without any significant cough. Patient has a Urban catheter. Objective: Vitals (See below) General: Lying in bed, no acute distress, comfortable, AAOx3 HEENT: NC, AT CVS: RRR, +S1S2 Lungs: Fair air entry b/l, no wheezing, or rhonchi, crackles appreciate at R lung base Abdomen: Soft, nondistended, nontender Extremities: No evidence of edema Imaging: CXR 07/10: Bilateral infiltrates. Differential includes multifocal pneumonia and COVID-19 pulmonary disease. Follow-up to resolution is recommended. CT Chest 07/11: 1. Patchy ground-glass opacities in both lungs, more pronounced on the right. Although nonspecific, this may represent hypersensitivity pneumonitis. 2. Mild interstitial scarring in both lungs, in a predominantly basilar and subpleural distribution, right greater than left. 3. Noncalcified pulmonary nodules, measuring up to 4 mm. For patient's at low risk (minimal or absent history of smoking and of other known risk factors), no routine follow-up is indicated. For patients at high risk (history of smoking or other known risk factors), consider optional CT chest at 12 months. 4. Mild mediastinal and right hilar lymphadenopathy. 5. Nodular, cirrhotic-appearing liver. Assessment and plan: Shortness of breath with exertion - likely 2/2 pneumonitis (possibly 2/2 medications), less likely 2/2 infectious etiology, less likely 2/2 cardiogenic etiology - Patient has reported progressive shortness of breath without any significant productive cough - He remains hemodynamically stable and afebrile - PCT not significantly elevated - Respiratory panel 07/11: Negative - Blood cultures 07/10: Pending - Imaging noted above - Legionella / Strep antigen pending; will check Mycoplasma - c/w Levofloxacin - Will discuss with Pulmonology; likely will need to be started on corticosteroids 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; s/p tPA - Currently on low dose Xarelto HTN - BP well controlled - c/w Metoprolol, Ramipril ROCHELLE - May use outpatient CPAP while inpatient Cirrhosis of liver - c/w Supportive care CAD s/p CABG (10/2020) - c/w ASA 81, Atorvastatin, Metoprolol, Xarelto DM2 - c/w ISS MS - Will resume Baclofen Neurogenic bladder - s/p Urban - c/w Oxybutynin GERD - c/w Omeprazole DVT prophylaxis - c/w full Xarelto 2.5 BID Code status: - Full code VS,Fishbone, I+O VS, Fishbone, I+O Laboratory Tests 07/10/21 17:27 Vital Signs Date Time Temp Pulse Resp B/P (MAP) Pulse Ox O2 Delivery O2 Flow Rate FiO2 07/11/21 06:00 97.8 102 18 129/72 (91) 92 Room Air I&O- Last 24 Hours up to 6 AM 07/11/21 06:00 Intake Total 810 ml Output Total 1250 ml Balance -440 ml BLU WHEAT MD Jul 11, 2021 10:36
[2021-07-11] MEDS: LACTOBACILLUS ACIDOPHILUS CAP (BACID) PO SCH ×2 (11:14→17:57)
[2021-07-11] MEDS: ASCORBIC ACID 500 MG TAB PO SCH (11:33)
[2021-07-11] MEDS: OYSTER SHELL CALCIUM 500 MG TAB PO SCH (11:33)
[2021-07-11] MEDS: oxyBUTYnin 5 MG TAB PO SCH ×2 (11:33→20:56)
[2021-07-11] MEDS: METOPROLOL TART 25 MG TABLET PO SCH ×2 (11:33→20:59)
[2021-07-11] MEDS: OMEPRAZOLE 20 MG CAP PO SCH (11:33)
[2021-07-11] MEDS: ATORVASTATIN 20 MG TAB PO SCH (11:33)
[2021-07-11] MEDS: BACLOFEN 10 MG TAB PO SCH ×2 (11:34→20:56)
[2021-07-11] MEDS: LEVALBUTEROL 1.25 MG/0.5 ML CONCENTRATE NEB INH SCH ×3 (12:00→18:09)
[2021-07-11] MEDS ORDERED: LEVALBUTEROL 1.25 MG/0.5 ML CONCENTRATE NEB INH PRN (12:30)
[2021-07-11] MEDS: methylPREDNISolone 125MG 2ML VIAL IV SCH ×2 (12:50→20:56)
[2021-07-11 13:41] LABS: ALBUMIN 2.9 GM/DL (3.2-5.2); ALT/SGPT 61 U/L (12-78); BILIRUBIN,TOTAL 0.3 MG/DL (0.2-1.0); BLOOD UREA NITROGEN 23 MG/DL (7-18); CALCIUM LEVEL 9.2 MG/DL (8.8-10.2); CARBON DIOXIDE LEVEL 24 MEQ/L (21-32); CHLORIDE LEVEL 100 MEQ/L (98-107); CHOLESTEROL LEVEL 131 MG/DL (< 200); CPK CREATINE PHOSPHOKINASE 60 U/L (39-308); CREATININE FOR GFR 1.23 MG/DL (0.70-1.30); GLOMERULAR FILTRATION RATE > 60.0 (>42); GLUCOSE, FASTING 244 MG/DL (70-100); LDH LACTATE DEHYDROGENASE 211 U/L (87-241); POTASSIUM SERUM 4.6 MEQ/L (3.5-5.1); RHEUMATOID FACTOR QUANT < 10.0 IU/ML (<15.0); SODIUM LEVEL 133 MEQ/L (136-145); TOTAL PROTEIN 7.6 GM/DL (6.4-8.2); TRIGLYCERIDES LEVEL 109 MG/DL (<150)
[2021-07-11 14:00] VITALS: BP 125/65
[2021-07-11] MEDS: FLUTICASONE PROP 0.05% NASAL SPRAY 16 GM (FLONASE) NARES SCH (14:11)
[2021-07-11] MEDS: ramipriL 1.25 MG CAP PO SCH (14:12)
[2021-07-11] MEDS: XARELTO 2.5 MG PO SCH (17:57)
[2021-07-11] MEDS ORDERED: RIVAROXABAN 15 MG TAB (XARELTO) PO SCH (18:00)
--- NOTE | 2021-07-11 19:34 | ECGEPIP ---
[facility] - ED Test Date: 2021-07-10 Pat Name: MIGUEL MAS Department: Room: - Gender: Male [employer]: SANA : 1945 Requested By: SHAI SHAH Order Number: [id number] Reading MD: Cami Mortensen Measurements Intervals [place] Rate: 77 P: 50 MT: 206 QRS: -15 QRSD: 112 T: 38 QT: 408 QTc: 461 Interpretive Statements Normal sinus rhythm Incomplete right bundle branch block Minimal voltage criteria for LVH, may be normal variant ( Richard product ) NSTTW abnormalities decreased rate 10/20/20 Electronically Signed on 07-11-2021 19:34:36 EST by Cami Mortensen
[2021-07-11] MEDS: LevoFLOXacin IV 750 MG in IV 1 EA IV SCH (20:55)
[2021-07-11] MEDS: VITAMIN D 1,000 INTERNATIONAL UNITS TABLET PO SCH (20:56)
[2021-07-11] MEDS: ASPIRIN 81MG ENTERIC TABLET PO SCH (20:56)
[2021-07-11 22:00] VITALS: BP 135/80
[2021-07-12] MEDS: LEVALBUTEROL 1.25 MG/0.5 ML CONCENTRATE NEB INH SCH ×7 (00:20→23:49)
[2021-07-12] MEDS: methylPREDNISolone 125MG 2ML VIAL IV SCH ×3 (05:28→21:43)
[2021-07-12 06:00] VITALS: BP 148/87
[2021-07-12] MEDS: FLUTICASONE PROP 0.05% NASAL SPRAY 16 GM (FLONASE) NARES SCH (08:28)
[2021-07-12] MEDS: HumaLOG INSULIN (NovoLOG) PER UNIT SC SCH ×4 (08:28→21:43)
[2021-07-12] MEDS: XARELTO 2.5 MG PO SCH ×2 (08:28→17:03)
[2021-07-12] MEDS: BACLOFEN 10 MG TAB PO SCH ×2 (08:28→21:43)
[2021-07-12] MEDS: DOCUSATE SODIUM 100MG CAPSULE PO SCH ×2 (08:28→21:43)
[2021-07-12] MEDS: OYSTER SHELL CALCIUM 500 MG TAB PO SCH (08:28)
[2021-07-12] MEDS: ATORVASTATIN 20 MG TAB PO SCH (08:29)
[2021-07-12] MEDS: OMEPRAZOLE 20 MG CAP PO SCH (08:29)
[2021-07-12] MEDS: METOPROLOL TART 25 MG TABLET PO SCH ×2 (08:29→21:44)
[2021-07-12] MEDS: oxyBUTYnin 5 MG TAB PO SCH ×2 (08:29→21:43)
[2021-07-12] MEDS: ASCORBIC ACID 500 MG TAB PO SCH (08:29)
[2021-07-12] MEDS: LACTOBACILLUS ACIDOPHILUS CAP (BACID) PO SCH ×2 (08:29→17:03)
[2021-07-12] MEDS: ramipriL 1.25 MG CAP PO SCH (08:29)
[2021-07-12 09:38] LABS: HEMATOCRIT 31.1 % (42.0-52.0); HEMOGLOBIN 9.9 g/dl (13.5-17.5); LYMPH # 0.3 10^3/uL (1.5-5.0); LYMPH % 3.7 % (24.0-44.0); MEAN CORPUSCULAR HEMOGLOBIN 25.8 pg (27.0-33.0); MEAN CORPUSCULAR HGB CONC 31.8 g/dl (32.0-36.5); MEAN CORPUSCULAR VOLUME 81.2 fl (80.0-96.0); MONO # 0.1 10^3/uL (0.0-0.8); NEUTROPHILS # 7.8 10^3/uL (1.5-8.5); NEUTROPHILS % 94.6 % (36.0-66.0); PLATELET COUNT, AUTOMATED 283 10^3/uL (150-450); RED BLOOD COUNT 3.83 10^6/uL (4.30-6.10); WHITE BLOOD COUNT 8.2 10^3/uL (4.0-10.0)
[2021-07-12 10:05] LABS: BILIRUBIN,TOTAL 0.3 MG/DL (0.2-1.0); CALCIUM LEVEL 9.4 MG/DL (8.8-10.2); CREATININE FOR GFR 1.24 MG/DL (0.70-1.30); MAGNESIUM LEVEL 1.6 MG/DL (1.8-2.4); POTASSIUM SERUM 4.7 MEQ/L (3.5-5.1); TOTAL PROTEIN 8.2 GM/DL (6.4-8.2)
--- NOTE | 2021-07-12 11:39 | IPNPDOC ---
Text Note Date of Service The patient was seen on 07/12/21. NOTE Subjective: Patient is a 68-year-old male with a PMHx of Hx of CAD s/p CABG (10/2020), DM2, Cirrhosis, ROCHELLE, Chronic Urban catheter (2/2 Neurogenic bladder; on Nitrofurantoin for several months for apparent prophylaxis), MS, GERD who presented to the ER on 07/10 with complaints of SOB. Patient has reported progressive shortness of breath. Patient denies any significant cough. Has not experience any fever, chills Patient was seen and examined at the bedside. Patient was seen sitting up in chair, appears to be comfortable. Reports that his breathing subjectively feels better today. Again has not experience any significant cough. No nausea, vomitin g, abdominal pain or diarrhea. Patient is a Urban catheter that is in place, scheduled for replacement. Objective: Vitals (See below) General: Sitting up in chair, appears comfortable, awake / alert, oriented 3 HEENT: NC, AT CVS: +S1S2 Lungs: Fair air entry b/l, crackles can be appreciated at bilateral lower lung bases. No evidence of wheezing or rhonchi Abdomen: Abdomen remains soft without any distention or tenderness Extremities: Trace LE edema Imaging: CXR 07/10: Bilateral infiltrates. Differential includes multifocal pneumonia and COVID-19 pulmonary disease. Follow-up to resolution is recommended. CT Chest 07/11: 1. Patchy ground-glass opacities in both lungs, more pronounced on the right. Although nonspecific, this may represent hypersensitivity pneumonitis. 2. Mild interstitial scarring in both lungs, in a predominantly basilar and subpleural distribution, right greater than left. 3. Noncalcified pulmonary nodules, measuring up to 4 mm. For patient's at low risk (minimal or absent history of smoking and of other known risk factors), no routine follow-up is indicated. For patients at high risk (history of smoking or other known risk factors), consider optional CT chest at 12 months. 4. Mild mediastinal and right hilar lymphadenopathy. 5. Nodular, cirrhotic-appearing liver. Assessment and plan: Shortness of breath with exertion - likely 2/2 pneumonitis (possibly 2/2 medications), possibly 2/2 Interstitial lung disease, less likely 2/2 infectious etiology, less likely 2/2 cardiogenic etiology - Presented with progressive SOB; currently has reported some improvement - He remains hemodynamically stable and afebrile - PCT not significantly elevated - Respiratory panel 07/11: Negative - Blood cultures 07/10: No growth at 24 hours - Imaging noted above - Legionella / Strep antigen / Mycoplasma pending - BERONICA / Autoimmune workup pending - c/w Levofloxacin (Day #2) - c/w Corticosteroids (Day #2) and inhaled therapy as ordered Hyponatremia - likely hypotonic etiology - Currently patient appears slightly volume overloaded with trace edema - Will check urine / serum osmolality / urine electrolytes / TSH / Cortisol baseline - Will consider giving dose of diuretic today 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; s/p tPA - Currently on low dose Xarelto HTN - BP well controlled - c/w Metoprolol, Ramipril ROCHELLE - May use outpatient CPAP while inpatient Cirrhosis of liver - c/w Supportive care CAD s/p CABG (10/2020) - c/w ASA 81, Atorvastatin, Metoprolol, Xarelto DM2 - c/w ISS MS - c/w Baclofen Neurogenic bladder - s/p Urban; to be changed today - c/w Oxybutynin GERD - c/w Omeprazole DVT prophylaxis - c/w full Xarelto 2.5 BID Code status: - Full code VS,Fishbone, I+O VS, Fishbone, I+O Laboratory Tests 07/11/21 12:55 07/12/21 09:15 Vital Signs Date Time Temp Pulse Resp B/P (MAP) Pulse Ox O2 Delivery O2 Flow Rate FiO2 07/12/21 08:29 147/85 07/12/21 08:29 101 07/12/21 06:00 97.4 17 92 Room Air I&O- Last 24 Hours up to 6 AM 07/12/21 06:00 Intake Total 1110 ml Output Total 3150 ml Balance -2040 ml BLU WHEAT MD Jul 12, 2021 11:39
[2021-07-12 12:42] LABS: THYROID STIMULATING HORMONE 0.871 uIU/ML (0.358-3.740)
[2021-07-12 14:00] VITALS: BP 121/65
[2021-07-12 15:09] LABS: MYCOPLASMA PNEUMONIAE IgG <100 U/mL (0-99); MYCOPLASMA PNEUMONIAE IgM <770 U/mL (0-769)
[2021-07-12 15:10] LABS: CORTISOL BASELINE 12.1 UG/DL (4.3-22.4)
[2021-07-12] MEDS: MAG SULF 1GM/100ML (MAG RUN) 1 GM in IV 1 EA IV SCH ×2 (17:06→18:04)
[2021-07-12] MEDS ORDERED: FUROSEMIDE 40MG/4ML VIAL (J1940) IV ONE (17:30)
[2021-07-12 19:37] LABS: CHLORIDE,RANDOM URINE 112 MEQ/L; CREATININE,RANDOM URINE < 13.0 MG/DL; POTASSIUM RANDOM URINE 14.4 MEQ/L; SODIUM,RANDOM URINE 97 MEQ/L
[2021-07-12] MEDS: LevoFLOXacin IV 750 MG in IV 1 EA IV SCH (19:43)
[2021-07-12 19:44] LABS: OSMOLALITY URINE 300 MOSM/KG (50-1400)
[2021-07-12] MEDS: ASPIRIN 81MG ENTERIC TABLET PO SCH (21:43)
[2021-07-12] MEDS: VITAMIN D 1,000 INTERNATIONAL UNITS TABLET PO SCH (21:43)
[2021-07-12 22:00] VITALS: BP 137/84
[2021-07-13] MEDS: LEVALBUTEROL 1.25 MG/0.5 ML CONCENTRATE NEB INH SCH ×5 (04:28→19:23)
[2021-07-13] MEDS: methylPREDNISolone 125MG 2ML VIAL IV SCH ×2 (04:45→12:37)
[2021-07-13 06:00] VITALS: BP 132/58
[2021-07-13 06:00] LABS: BASO % 0.2 % (0.0-1.0); HEMATOCRIT 32.9 % (42.0-52.0); HEMOGLOBIN 10.4 g/dl (13.5-17.5); LYMPH # 0.5 10^3/uL (1.5-5.0); LYMPH % 3.8 % (24.0-44.0); MEAN CORPUSCULAR HEMOGLOBIN 25.6 pg (27.0-33.0); MEAN CORPUSCULAR HGB CONC 31.6 g/dl (32.0-36.5); MEAN CORPUSCULAR VOLUME 80.8 fl (80.0-96.0); MONO # 0.6 10^3/uL (0.0-0.8); MONO % 4.6 % (2.0-8.0); NEUTROPHILS # 11.9 10^3/uL (1.5-8.5); NEUTROPHILS % 90.7 % (36.0-66.0); PLATELET COUNT, AUTOMATED 354 10^3/uL (150-450); RED BLOOD COUNT 4.07 10^6/uL (4.30-6.10); WHITE BLOOD COUNT 13.2 10^3/uL (4.0-10.0)
[2021-07-13 06:24] LABS: BILIRUBIN,TOTAL 0.3 MG/DL (0.2-1.0); CALCIUM LEVEL 9.6 MG/DL (8.8-10.2); CREATININE FOR GFR 1.37 MG/DL (0.70-1.30); GLOMERULAR FILTRATION RATE 53.5 (>42); POTASSIUM SERUM 4.7 MEQ/L (3.5-5.1); TOTAL PROTEIN 8.1 GM/DL (6.4-8.2)
[2021-07-13] MEDS: ASCORBIC ACID 500 MG TAB PO SCH (08:27)
[2021-07-13] MEDS: HumaLOG INSULIN (NovoLOG) PER UNIT SC SCH ×4 (08:27→20:57)
[2021-07-13] MEDS: BACLOFEN 10 MG TAB PO SCH ×2 (08:28→20:56)
[2021-07-13] MEDS: LACTOBACILLUS ACIDOPHILUS CAP (BACID) PO SCH ×2 (08:28→17:57)
[2021-07-13] MEDS: DOCUSATE SODIUM 100MG CAPSULE PO SCH ×2 (08:28→20:56)
[2021-07-13] MEDS: OMEPRAZOLE 20 MG CAP PO SCH (08:28)
[2021-07-13] MEDS: XARELTO 2.5 MG PO SCH ×2 (08:29→17:57)
[2021-07-13] MEDS: OYSTER SHELL CALCIUM 500 MG TAB PO SCH (08:29)
[2021-07-13] MEDS: oxyBUTYnin 5 MG TAB PO SCH ×2 (08:29→20:56)
[2021-07-13] MEDS: FLUTICASONE PROP 0.05% NASAL SPRAY 16 GM (FLONASE) NARES SCH (08:29)
[2021-07-13] MEDS: METOPROLOL TART 25 MG TABLET PO SCH ×2 (08:30→20:59)
--- NOTE | 2021-07-13 11:19 | IPNPDOC ---
Text Note Date of Service The patient was seen on 07/13/21. NOTE Subjective: Patient is a 68-year-old male with a PMHx of Hx of CAD s/p CABG (10/2020), DM2, Cirrhosis, ROCHELLE, Chronic Urban catheter (2/2 Neurogenic bladder; on Nitrofurantoin for several months for apparent prophylaxis), MS, GERD who presented to the ER on 07/10 with complaints of SOB. Patient has reported progressive shortness of breath. Patient denies any significant cough. Has not experience any fever, chills Patient was seen and examined at the bedside. Currently patient reports that her breathing is doing slightly better than yesterday. Again denies any significant cough. No chest pain or palpitations. Has not experience any nausea, vomiting, abdominal pain or diarrhea. Patient has a Urban catheter remains in place that was changed yesterday. Objective: Vitals (See below) General: Sitting up in chair, appears comfortable, awake / alert, oriented 3 HEENT: NC, AT CVS: +S1S2 Lungs: Fair air entry b/l, crackles can be appreciated at bilateral lower lung bases. No evidence of wheezing or rhonchi Abdomen: Abdomen remains soft without any distention or tenderness Extremities: Trace LE edema Imaging: CXR 07/10: Bilateral infiltrates. Differential includes multifocal pneumonia and COVID-19 pulmonary disease. Follow-up to resolution is recommended. CT Chest 07/11: 1. Patchy ground-glass opacities in both lungs, more pronounced on the right. Although nonspecific, this may represent hypersensitivity pneumonitis. 2. Mild interstitial scarring in both lungs, in a predominantly basilar and subpleural distribution, right greater than left. 3. Noncalcified pulmonary nodules, measuring up to 4 mm. For patient's at low risk (minimal or absent history of smoking and of other known risk factors), no routine follow-up is indicated. For patients at high risk (history of smoking or other known risk factors), consider optional CT chest at 12 months. 4. Mild mediastinal and right hilar lymphadenopathy. 5. Nodular, cirrhotic-appearing liver. Assessment and plan: Shortness of breath with exertion - likely 2/2 pneumonitis (possibly 2/2 medications), possibly 2/2 Interstitial lung disease, less likely 2/2 infectious etiology, less likely 2/2 cardiogenic etiology - Patient has reported improvement of the shortness of breath - again no cough - Remains hemodynamically stable and afebrile - PCT not significantly elevated - Respiratory panel 07/11: Negative - Blood cultures 07/10: No growth at 48 hours - Imaging noted above - Legionella / Strep antigen / Mycoplasma pending - BERONICA / Autoimmune workup pending - c/w Levofloxacin (Day #3) - c/w Corticosteroids (Day #3); will introduce prednisone taper within 24 hours - c/w inhaled therapy as ordered Hyponatremia - likely hypotonic etiology - Improving slowly - Improvement of edema - TSH / Cortisol baseline noted - Patient has been negative fluid balanced - s/p Single dose of Furosemide 40 IV yesterday 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; s/p tPA - Currently on low dose Xarelto HTN - BP well controlled - c/w Metoprolol, Ramipril ROCHELLE - May use outpatient CPAP while inpatient Cirrhosis of liver - c/w Supportive care CAD s/p CABG (10/2020) - c/w ASA 81, Atorvastatin, Metoprolol, Xarelto DM2 - c/w ISS MS - c/w Baclofen Neurogenic bladder - s/p Urban; changed on 07/12 - c/w Oxybutynin GERD - c/w Omeprazole DVT prophylaxis - c/w Xarelto 2.5 BID Code status: - Full code VS,Fishbone, I+O VS, Fishbone, I+O Laboratory Tests 07/13/21 05:44 Vital Signs Date Time Temp Pulse Resp B/P (MAP) Pulse Ox O2 Delivery O2 Flow Rate FiO2 07/13/21 08:30 80 127/71 07/13/21 06:00 97.6 18 96 Room Air I&O- Last 24 Hours up to 6 AM 07/13/21 05:59 Intake Total 2230 ml Output Total 2000 ml Balance 230 ml BLU WHEAT MD Jul 13, 2021 11:19
[2021-07-13 14:00] VITALS: BP 129/71
--- NOTE | 2021-07-13 15:48 | ECHO ---
ECHOCARDIOGRAM DATE OF PROCEDURE: 07/11/2021 Age: 76 Gender: Height: 175 cm Weight: 89 kg Patient location: Room 4209 REFERRING PHYSICIAN: Dr. Lynda Rivera INDICATION: Pneumonia, pedal edema. 2D MEASUREMENTS: IVS 1.2 cm LV 3.8 cm LVPW 1.3 cm LA 3.3 cm Aorta 3.9 cm DOPPLER MEASUREMENTS: Peak velocity across the aortic valve 1.2 m/s Mitral E 0.9 Mitral A 1.2 with a ratio of 0.7 2D COMMENTS: 1. Normal left ventricular size with probably mildly increased left ventricular wall thickness. Left ventricular systolic function is normal, estimated at 60%-65%. 2. Normal left atrium. Normal right atrium and right ventricle. 3. The atrial septum appeared to be normal without evidence of defect or shunt. 4. Mildly dilated aortic root at 3.9 cm. 5. Mildly calcified aortic valve with normal leaflet excursion. Mildly calcified mitral annulus with normal anterior mitral valve leaflet motion. The tricuspid annulus also was calcified. 6. Normal tricuspid valve leaflet motion. Normal pulmonic valve. The proximal pulmonary artery branches were not well visualized. 7. The inferior vena cava was not visualized. DOPPLER: No significant valvular abnormalities detected. Abnormal relaxation pattern was noted across the mitral valve leaflets as well as the mitral valve annulus, consistent with some features of grade 1 left ventricular diastolic dysfunction. IMPRESSION: 1. Normal global left ventricular systolic function with mild concentric left ventricular hypertrophy. 2. There were some features of grade 1 left ventricular hypertrophy diastolic dysfunction manifested by abnormal relaxation. 3. Mildly dilated aortic root at 3.9 cm. 4. Aortic valve sclerosis without evidence of aortic stenosis or regurgitation. 5. Mitral annulus calcification. No evidence of mitral regurgitation or stenosis. 6. Overall, no significant valvular abnormalities detected.
[2021-07-13] MEDS ORDERED: RAMELTEON 8 MG TAB (ROZEREM) PO PRN (20:40)
[2021-07-13] MEDS: LevoFLOXacin IV 750 MG in IV 1 EA IV SCH (20:55)
[2021-07-13] MEDS: ASPIRIN 81MG ENTERIC TABLET PO SCH (20:56)
[2021-07-13] MEDS: VITAMIN D 1,000 INTERNATIONAL UNITS TABLET PO SCH (20:56)
[2021-07-13] MEDS: methylPREDNISolone 40MG 1ML VIAL IV SCH (20:57)
[2021-07-13] MEDS ORDERED: LEVEMIR (INSULIN DETEMIR) 1 UNITS/0.01ML SC SCH (21:00)
[2021-07-13 22:00] VITALS: BP 128/71
[2021-07-14] MEDS: LEVALBUTEROL 1.25 MG/0.5 ML CONCENTRATE NEB INH SCH ×5 (00:18→16:00)
[2021-07-14] MEDS: methylPREDNISolone 40MG 1ML VIAL IV SCH (05:53)
[2021-07-14 06:00] VITALS: BP 129/81
[2021-07-14 07:02] LABS: BASO % 0.1 % (0.0-1.0); HEMATOCRIT 31.9 % (42.0-52.0); LYMPH # 0.7 10^3/uL (1.5-5.0); LYMPH % 6.7 % (24.0-44.0); MEAN CORPUSCULAR HEMOGLOBIN 25.5 pg (27.0-33.0); MEAN CORPUSCULAR HGB CONC 31.3 g/dl (32.0-36.5); MEAN CORPUSCULAR VOLUME 81.4 fl (80.0-96.0); MONO # 0.4 10^3/uL (0.0-0.8); MONO % 4.5 % (2.0-8.0); NEUTROPHILS # 8.7 10^3/uL (1.5-8.5); NEUTROPHILS % 88.1 % (36.0-66.0); PLATELET COUNT, AUTOMATED 357 10^3/uL (150-450); RED BLOOD COUNT 3.92 10^6/uL (4.30-6.10); WHITE BLOOD COUNT 9.9 10^3/uL (4.0-10.0)
[2021-07-14 07:23] LABS: ALBUMIN 2.8 GM/DL (3.2-5.2); BILIRUBIN,TOTAL 0.2 MG/DL (0.2-1.0); CALCIUM LEVEL 9.3 MG/DL (8.8-10.2); CREATININE FOR GFR 1.24 MG/DL (0.70-1.30); POTASSIUM SERUM 5.1 MEQ/L (3.5-5.1); TOTAL PROTEIN 7.5 GM/DL (6.4-8.2)
[2021-07-14] MEDS: HumaLOG INSULIN (NovoLOG) PER UNIT SC SCH ×2 (08:39→12:23)
[2021-07-14] MEDS: BACLOFEN 10 MG TAB PO SCH (08:39)
[2021-07-14] MEDS: OYSTER SHELL CALCIUM 500 MG TAB PO SCH (08:39)
[2021-07-14] MEDS: XARELTO 2.5 MG PO SCH (08:39)
[2021-07-14] MEDS: DOCUSATE SODIUM 100MG CAPSULE PO SCH (08:39)
[2021-07-14] MEDS: LACTOBACILLUS ACIDOPHILUS CAP (BACID) PO SCH (08:39)
[2021-07-14] MEDS: OMEPRAZOLE 20 MG CAP PO SCH (08:39)
[2021-07-14 08:40] VITALS: BP 125/72
[2021-07-14] MEDS: ASCORBIC ACID 500 MG TAB PO SCH (08:40)
[2021-07-14] MEDS: METOPROLOL TART 25 MG TABLET PO SCH (08:40)
[2021-07-14] MEDS: oxyBUTYnin 5 MG TAB PO SCH (08:40)
[2021-07-14] MEDS: FLUTICASONE PROP 0.05% NASAL SPRAY 16 GM (FLONASE) NARES SCH (08:40)
[2021-07-14] MEDS ORDERED: predniSONE 20 MG TAB PO SCH (09:00)
[2021-07-14] MEDS ORDERED: FUROSEMIDE 20 MG TAB PO ONE (10:00)
[2021-07-14] MEDS ORDERED: PRED10TA2 PO ×2 (11:39→12:37)
[2021-07-14 12:21] LABS: APPEARANCE, URINE CLEAR (CLEAR); BACTERIA, URINE AUTO 1+ (NEGATIVE); BILIRUBIN, URINE AUTO NEGATIVE (NEGATIVE); BLOOD, URINE BLOOD NEGATIVE (NEGATIVE); COLOR, URINE YELLOW (YELLOW); GLUCOSE, URINE (UA) AUTO 1+ mg/dL (NEGATIVE); KETONE, URINE AUTO NEGATIVE (NEGATIVE); LEUKOCYTE ESTERASE, URINE AUTO 2+ (NEGATIVE); MUCUS, URINE SMALL (NEGATIVE); NITRITE, URINE AUTO NEGATIVE (NEGATIVE); PROTEIN, URINE AUTO NEGATIVE (NEGATIVE); RBC, URINE AUTO 5 /HPF (0-3); SPECIFIC GRAVITY URINE AUTO 1.012 (1.002-1.035); SQUAMOUS EPITHELIAL CELL UR AU 0 /HPF (0-6); UROBILINOGEN, URINE AUTO 0.2 mg/dL (0.0-2.0); WBC, URINE AUTO 4 /HPF (0-3)
[2021-07-14] MEDS ORDERED: FIFT31MI2 SC (12:48)
[2021-07-14] MEDS ORDERED: VENTAER INH (12:48)
[2021-07-14] MEDS ORDERED: LANTINJ4 SC (12:48)
[2021-07-14] MEDS ORDERED: MELA3TAB49 PO (12:48)
[2021-07-14 14:00] VITALS: BP 123/71
[2021-07-14] MEDS ORDERED: BASA100I SC (14:52)
[2021-07-14] MEDS ORDERED: LEVO750T13 PO (15:31)
--- NOTE | 2021-07-14 15:35 | DS.PDOC ---
Discharge Summary General Date of Admission Jul 10, 2021 at 19:44 Date of Discharge 07/14/2021 Discharge Summary PROCEDURES PERFORMED DURING STAY: [None]. ADMITTING DIAGNOSES / DISCHARGE DIAGNOSES: Shortness of breath with exertion - likely 2/2 pneumonitis (possibly 2/2 medications), possibly 2/2 Interstitial lung disease, less likely 2/2 infectious etiology, less likely 2/2 cardiogenic etiology Hyponatremia - likely hypotonic etiology Arterial thrombosis HTN ROCHELLE Cirrhosis of liver CAD s/p CABG (10/2020) DM2 MS Neurogenic bladder GERD DVT prophylaxis COMPLICATIONS/CHIEF COMPLAINT: Shortness of breath HISTORY OF PRESENT ILLNESS: Patient is a 68-year-old male with a PMHx of Hx of CAD s/p CABG (10/2020), DM2, Cirrhosis, ROCHELLE, Chronic Urban catheter (2/2 Neurogenic bladder; on Nitrofurantoin for several months for apparent prophylaxis), MS, GERD who presented to the ER on 07/10 with complaints of SOB. Patient has reported progressive shortness of breath. Patient denies any significant cough. Has not experience any fever, chills Patient was seen and examined at the bedside. Patient reports that his breathing is doing significantly better. He has worked with physical therapy and has been cleared for discharge home. He denies any chest pain, again has not experience any cough. Denies any nausea, vomiting, abdominal pain. He has a Urban catheter that is not causing him any discomfort. HOSPITAL COURSE: Shortness of breath with exertion - likely 2/2 pneumonitis (possibly 2/2 me dications), possibly 2/2 Interstitial lung disease, less likely 2/2 infectious etiology, less likely 2/2 cardiogenic etiology - Patient notes improvement of their breathing / again no cough - Hemodynamically stable and afebrile - PCT not significantly elevated - Respiratory panel 07/11: Negative - Blood cultures 07/10: No growth at 72 hours - Imaging noted above - Legionella / Strep antigen pending - Mycoplasma negative - BERONICA / Autoimmune workup pending; will have outpatient follow-up with primary care provider, and pulmonology - c/w Levofloxacin (Day #4); will complete antibiotic course as an outpatient - Will start Prednisone; Will DC Corticosteroids (Day #4) - will continue prednisone prolonged taper as an outpatient - c/w inhaled therapy as ordered Hyponatremia - likely hypotonic etiology - Improving slowly - Trace edema noted today - TSH / Cortisol baseline noted - Patient has been negative fluid balanced - s/p Single dose of Furosemide 40 IV yesterday and small oral dose today 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 ALLERGIES: Please see below. PHYSICAL EXAMINATION ON DISCHARGE: Vitals (See below) General: Patient is sitting up in chair with breakfast tray in front of him, appears to be comfortable. He is not in any acute distress. He is oriented to person, place and time HEENT: NC, AT CVS: +S1S2 Lungs: Auscultation is fair bilaterally without any discernible crackles, wheezing or rhonchi Abdomen: His abdomen remains soft without any significant distention or tenderness that is appreciated Extremities: Lower extremities reveal trace to 1+ pitting edema LABORATORY DATA: Please see below. IMAGING: CXR 07/10: Bilateral infiltrates. Differential includes multifocal pneumonia and COVID-19 pulmonary disease. Follow-up to resolution is recommended. CT Chest 07/11: 1. Patchy ground-glass opacities in both lungs, more pronounced on the right. Although nonspecific, this may represent hypersensitivity pneumonitis. 2. Mild interstitial scarring in both lungs, in a predominantly basilar and sub pleural distribution, right greater than left. 3. Noncalcified pulmonary nodules, measuring up to 4 mm. For patient's at low risk (minimal or absent history of smoking and of other known risk factors), no routine follow-up is indicated. For patients at high risk (history of smoking or other known risk factors), consider optional CT chest at 12 months. 4. Mild mediastinal and right hilar lymphadenopathy. 5. Nodular, cirrhotic-appearing liver. ECHO 07/11: 1. Normal global left ventricular systolic function with mild concentric left ventricular hypertrophy. 2. There were some features of grade 1 left ventricular hypertrophy diastolic dysfunction manifested by abnormal relaxation. 3. Mildly dilated aortic root at 3.9 cm. 4. Aortic valve sclerosis without evidence of aortic stenosis or regurgitation. 5. Mitral annulus calcification. No evidence of mitral regurgitation or stenosis. 6. Overall, no significant valvular abnormalities detected. ACTIVITY: [As tolerated]. DISCHARGE PLAN: Follow-up with primary care provider, pulmonology and infectious disease within the next 7 days Remain compliant with treatment plan and medications Return to the ER if you experience any problems DISPOSITION: Home with services DISCHARGE CONDITION: [Stable]. TIME SPENT ON DISCHARGE: 35 minutes. Vital Signs/I&Os Vital Signs Date Time Temp Pulse Resp B/P (MAP) Pulse Ox O2 Delivery O2 Flow Rate FiO2 07/14/21 08:40 82 125/72 07/14/21 06:00 97.6 18 94 Room Air I&O- Last 24 Hours up to 6 AM 07/14/21 06:00 Intake Total 2100 ml Output Total 1050 ml Balance 1050 ml Laboratory Data Labs 24H Laboratory Tests 2 07/13/21 16:51: Bedside Glucose (Misc Panel) 236H 07/13/21 20:35: Bedside Glucose (Misc Panel) 340H 07/14/21 06:06: Immature Granulocyte % (Auto) 0.6, Neutrophils (%) (Auto) 88.1H, Lymphocytes (%) (Auto) 6.7L, Monocytes (%) (Auto) 4.5, Eosinophils (%) (Auto) 0.0, Basophils (%) (Auto) 0.1, Neutrophils # (Auto) 8.7H, Lymphocytes # (Auto) 0.7L, Monocytes # (Auto) 0.4, Eosinophils # (Auto) 0.0, Basophils # (Auto) 0.0, Nucleated Red Blood Cells % (auto) 0.0, Anion Gap 7L, Glomerular Filtration Rate 60.0, Calcium Level 9.3, Magnesium Level 2.0, Total Bilirubin 0.2, Aspartate Amino Transf (AST/SGOT) 59H, Alanine Aminotransferase (ALT/SGPT) 88H, Alkaline Phosphatase 1 83H, Total Protein 7.5, Albumin 2.8L, Albumin/Globulin Ratio 0.6 07/14/21 11:49: Bedside Glucose (Misc Panel) 284H 07/14/21 12:02: Urine Color YELLOW, Urine Appearance CLEAR, Urine pH 5.0, Urine Specific [place] 1.012, Urine Protein NEGATIVE, Urine Glucose (Auto)(UA) 1+H, Urine Ketones (Auto) NEGATIVE, Urine Blood NEGATIVE, Urine Nitrite NEGATIVE, Urine Bilirubin NEGATIVE, Urine Urobilinogen 0.2, Urine Leukocyte Esterase (Auto) 2+H, Urine WBC (Auto) 4H, Urine RBC (Auto) 5H, Urine Hyaline Casts (Auto) 3, Urine Bacteria (Auto) 1+H, Urine Squamous Epithelial Cells 0, Urine Mucus (Auto) SMALL, Urine Sperm (Auto) CBC/BMP Laboratory Tests 07/14/21 06:06 FSBS Laboratory Tests Test 07/13/21 16:51 07/13/21 20:35 07/14/21 11:49 Range/Units Bedside Glucose (Misc Panel) 236 340 284 83-110 MG/DL Microbiology Microbiology 07/11/21 Respiratory Virus Panel (PCR) (CHERELLE) - Final, Complete 07/10/21 Blood Culture - Preliminary, Resulted No Growth after 72 hours. All specime... 07/10/21 Blood Culture - Preliminary, Resulted No Growth after 72 hours. All specime... Discharge Medications Scheduled Alpha Lipoic Acid (Alpha Lipoic Acid) 200 Mg Tab, 200 MG PO BID, (Reported) Ascorbic Acid (Ascorbic Acid) 500 Mg Tablet, 500 MG PO DAILY, (Reported) Aspirin (Aspirin EC) 81 Mg Tablet.dr, 81 MG PO QHS, (Reported) Atorvastatin Calcium (Atorvastatin Calcium) 80 Mg Tablet, 40 MG PO 3XW, (Reported) FRI/FRI/ Baclofen (Baclofen) 10 Mg Tablet, 10 MG PO QAM, (Reported) Baclofen (Baclofen) 10 Mg Tablet, 20 MG PO QHS, (Reported) Calcium Carbonate (Calcium) 500 Mg Tablet, 500 MG PO DAILY, (Reported) Cholecalciferol (Vitamin D3) (Vitamin D3) 1,000 Unit Tablet, 1,000 UNITS PO QPM, (Reported) Docusate Sodium (Docusate Sodium) 100 Mg Capsule, 200 MG PO BID, (Reported) Fluconazole (Fluconazole) 150 Mg Tablet, 150 MG PO 2XW, (Reported) FRIDAY/FRIDAY Fluticasone Propionate (Fluticasone Propionate) 16 Gm [place].susp, 1 SPRAY NARES DAILY, (Reported) Insulin Glargine,Hum.rec.anlog (Basaglar Kwikpen U-100) 100 Unit/1 Ml Insuln.pen, 10 UNIT SC QHS vial = pen Lactobacillus Acidophilus (Probiotic) 1 Each Capsule, 1 CAP PO BIDWM, (Reported) Melatonin (Melatonin) 3 Mg Tab.rapdis, 1 TAB PO QPM for sleep Metformin HCl (Metformin HCl ER) 500 Mg Tab.er.24h, 500 MG PO QPM, (Reported) Metoprolol Tartrate (Metoprolol Tartrate) 25 Mg Tablet, 25 MG PO BID, (Reported) Omeprazole (Omeprazole) 20 Mg Capsule.dr, 20 MG PO DAILY, (Reported) Oxybutynin Chloride (Oxybutynin Chloride) 5 Mg Tablet, 5 MG PO BID, (Reported) Polyethylene Glycol 3350 (Miralax) 119 Gm Powder, 17 GM PO DAILY, (Reported) dilute in 8 ounces of water or juice Prednisone (Prednisone) 10 Mg Tablet, 1 TAB PO ASDIRECTED Take 4 tab po daily x 14 days, take 3 tab po daily x 14 days. Rivaroxaban (Xarelto) 2.5 Mg Tablet, 2.5 MG PO BID, (Reported) Scheduled PRN Albuterol Sulfate (Ventolin Hfa) 18 Gm Hfa.aer.ad, 2 PUFF INH Q4-6HP PRN for wheezing Ammonium Lactate (Ammonium Lactate) 12% Lotion, 1 DOSE TOP DAILY PRN for DRY SKIN, (Reported) APPLIES TO AREAS OF DRY SKIN Carboxymethylcellulose Sodium (Refresh Tears) 15 Ml Drops, 1 DROP OU QID PRN for DRY EYES, (Reported) Allergies Coded Allergies: gabapentin (Verified Adverse Reaction, Intermediate, elevates MS symptoms, 10/20/20) modafinil (Verified Adverse Reaction, Intermediate, elevate MS symptoms, ) Elttlot-XDY-RbL Reductase Inhibitor (Verified Adverse Reaction, Mild, "PASSES OUT", 10/20/20) glatiramer (copolymer 1) (Verified Adverse Reaction, Mild, weakness, 10/20/20) BUL WHEAT MD Jul 14, 2021 15:35
[2021-07-14] MEDS ORDERED: LEVE1INJ5 SC (15:56)
[2021-07-16 15:07] LABS: BODY FLUID CULTURE Not indicated. (.); LEGIONELLA ANTIGEN URINE Negative (Negative); ORGANISM ID Not indicated. (.); SPECIMEN SOURCE Urine (.); URINE STREP PNEUMONIAE ANTIGEN Negative (Negative)
== END 2021-07-14 17:03 | disposition home health service (06) | DRG 206 ==
LOC: EDBD 17:11 → M ED 17:11 → M ED INP 19:44 → ENRESERV 21:47 → M MSPAV 22:27
PROVIDERS: ADMIT Internal Medicine; ATTEND Internal Medicine
DX: J70.2 Acute drug-induced interstitial lung disorders (principal); E87.1 Hypo-osmolality and hyponatremia; Z96.0 Presence of urogenital implants; K21.9 Gastro-esophageal reflux disease without esophagitis; Z79.82 Long term (current) use of aspirin; Z79.84 Long term (current) use of oral hypoglycemic drugs; Z79.899 Other long term (current) drug therapy; Z88.8 Allergy status to other drugs, medicaments and biological substances; G47.33 Obstructive sleep apnea (adult) (pediatric); K74.60 Unspecified cirrhosis of liver; E11.9 Type 2 diabetes mellitus without complications; I25.10 Atherosclerotic heart disease of native coronary artery without angina pectoris; Z95.5 Presence of coronary angioplasty implant and graft; G35 Multiple sclerosis; T37.8X5A Adverse effect of other specified systemic anti-infectives and antiparasitics, initial encounter; I10 Essential (primary) hypertension; Z20.822 Contact with and (suspected) exposure to COVID-19; N31.9 Neuromuscular dysfunction of bladder, unspecified

== ENCOUNTER 2021-07-24 17:43 | Inpatient (IN) | payer MEDICARE, OTHER ==
[~2021-07-24] VITALS: Ht 175.3 cm; Wt 88.4 kg
[2021-07-24] MEDS: DOCUSATE SODIUM 100MG CAPSULE PO SCH (02:31)
[2021-07-24] MEDS: oxyBUTYnin 5 MG TAB PO SCH (02:32)
[~2021-07-24 17:43] MED LIST changes: +ATOR80TA59 PO; +BASA100I SC; -CALC1TAB8 PO; +CALC600T67 PO; +FIFT31MI2 SC; +FLUC150T PO; +FLUTISP; +LANTINJ4 SC; +LEVE1INJ5 SC; -LEVO500T3 PO; +LEVO500T4 PO; +LEVO750T13 PO; +LOSA25TA13 PO; -LOSA25TA14 PO; +LOSA50TA28 PO; -LOSA50TA88 PO; +MELA3TAB49 PO; -MOME50SP; +NASO50SP3; +OMEP-173 PO; -OMEP-218 PO; +OXYB5TAB10 PO; +PRED10TA2 PO; +PROBCAP14 PO; +REFR0.5D8 OU; +VENTAER INH
[2021-07-24 19:05] LABS: VENOUS BASE EXCESS 2.7 (-2.0-2.0); VENOUS HCO3 28.7 MEQ/L (23.0-27.0); VENOUS O2 SATURATION 78.1 % (60.0-80.0); VENOUS PARTIAL PRESSURE CO2 50.7 mmHg (38.0-50.0); VENOUS PARTIAL PRESSURE O2 45.1 mmHg (30.0-50.0); VENOUS PH 7.371 UNITS (7.330-7.430); VENOUS STANDARD HCO3 26.5 MEQ/L; VENOUS TOTAL CO2 30.3 MEQ/L (24.0-28.0)
[2021-07-24 19:11] LABS: EOS % 0.3 % (0.0-3.0); HEMATOCRIT 32.3 % (42.0-52.0); HEMOGLOBIN 10.2 g/dl (13.5-17.5); LYMPH # 0.7 10^3/uL (1.5-5.0); LYMPH % 9.1 % (24.0-44.0); MEAN CORPUSCULAR HEMOGLOBIN 25.6 pg (27.0-33.0); MEAN CORPUSCULAR HGB CONC 31.6 g/dl (32.0-36.5); MEAN CORPUSCULAR VOLUME 81.2 fl (80.0-96.0); MONO # 0.4 10^3/uL (0.0-0.8); MONO % 5.3 % (2.0-8.0); NEUTROPHILS # 6.2 10^3/uL (1.5-8.5); NEUTROPHILS % 84.8 % (36.0-66.0); PLATELET COUNT, AUTOMATED 180 10^3/uL (150-450); RED BLOOD COUNT 3.98 10^6/uL (4.30-6.10); WHITE BLOOD COUNT 7.3 10^3/uL (4.0-10.0)
[2021-07-24 19:53] LABS: ALBUMIN 2.9 GM/DL (3.2-5.2); ALT/SGPT 51 U/L (12-78); BILIRUBIN,DIRECT 0.2 MG/DL (0.0-0.2); BILIRUBIN,TOTAL 0.4 MG/DL (0.2-1.0); BLOOD UREA NITROGEN 36 MG/DL (7-18); CALCIUM LEVEL 8.8 MG/DL (8.8-10.2); CARBON DIOXIDE LEVEL 27 MEQ/L (21-32); CHLORIDE LEVEL 97 MEQ/L (98-107); CREATININE FOR GFR 1.23 MG/DL (0.70-1.30); GLOMERULAR FILTRATION RATE > 60.0 (>42); GLUCOSE, FASTING 270 MG/DL (70-100); POTASSIUM SERUM 3.9 MEQ/L (3.5-5.1); SODIUM LEVEL 133 MEQ/L (136-145); THYROID STIMULATING HORMONE 0.738 uIU/ML (0.358-3.740); TOTAL PROTEIN 6.7 GM/DL (6.4-8.2)
[2021-07-24 19:58] LABS: RSV AMPLIFICATION NEGATIVE (NEGATIVE)
[2021-07-24 20:56] LABS: OSMOLALITY SERUM 298 MOSM/KG (280-301)
[2021-07-24] MEDS: ASPIRIN 81MG ENTERIC TABLET PO SCH (21:00)
[2021-07-24] MEDS ORDERED: VITAMIN D 1,000 INTERNATIONAL UNITS TABLET PO SCH (21:00)
[2021-07-24] MEDS ORDERED: PROAAER10 INH (22:30)
[2021-07-24] MEDS ORDERED: PRED10TA2 PO (22:30)
[2021-07-24] MEDS ORDERED: BACITAB PO (22:30)
[2021-07-24] MEDS ORDERED: HOME MED LIST COMPLETE! XX SCH (22:30)
[2021-07-24] MEDS ORDERED: MELA3TAB30 PO (22:30)
[2021-07-24] MEDS ORDERED: MIRA1POW3 PO (22:30)
[2021-07-24] MEDS ORDERED: LACTIC ACID 12% LOTION 225 GM BTL TOP PRN (23:05)
[2021-07-24] MEDS ORDERED: ALBUTEROL 90 MCG/ACT 8GM HFA INHALER INH PRN (23:05)
[2021-07-25] VITALS (23 sets, daily range): BP systolic 106–138; BP diastolic 60–75; O2SAT 92–95
[2021-07-25] MEDS ORDERED: UNRESOLVED PATIENT OWN MED ORDER XX SCH (00:01)
[2021-07-25] MEDS ORDERED: OYSTER SHELL CALCIUM 500 MG TAB PO SCH (09:00)
[2021-07-25] MEDS: DOCUSATE SODIUM 100MG CAPSULE PO SCH (09:00)
[2021-07-25] MEDS ORDERED: OMEPRAZOLE 20 MG CAP PO SCH (09:00)
[2021-07-25] MEDS: oxyBUTYnin 5 MG TAB PO SCH ×2 (09:00→21:36)
[2021-07-25] MEDS: FLUTICASONE PROP 0.05% NASAL SPRAY 16 GM (FLONASE) SCH (09:00)
[2021-07-25] MEDS: LACTOBACILLUS ACIDOPHILUS CAP (BACID) PO SCH ×2 (09:00→17:10)
[2021-07-25] MEDS: ATORVASTATIN 20 MG TAB PO SCH (09:00)
[2021-07-25] MEDS: RIVAROXABAN 2.5 MG PO SCH ×2 (09:00→21:36)
[2021-07-25] MEDS ORDERED: ASCORBIC ACID 500 MG TAB PO SCH (09:00)
[2021-07-25] MEDS: MIRALAX *UNIT DOSE* 17GM PACKET PO SCH (09:00)
[2021-07-25] MEDS ORDERED: BISACODYL 10 MG SUPP PR PRN (11:00)
[2021-07-25] MEDS ORDERED: dexameTHASONE 4 MG/ML 1ML VIAL (J1100 PER 1MG) IV ONE (11:00)
[2021-07-25 11:44] LABS: ABG HCO3 27.6 MEQ/L (22.0-26.0); ABG O2 SATURATION 94.8 % (95.0-99.0); ABG PARTIAL PRESSURE CO2 37.7 mmHg (35.0-45.0); ABG PARTIAL PRESSURE O2 74.9 mmHg (75.0-100.0); ABG TOTAL CO2 28.8 MEQ/L (23.0-31.0); ABG pH (ARTERIAL) 7.483 UNITS (7.350-7.450)
[2021-07-25] MEDS: PANTOPRAZOLE 40MG VIAL (C9113 PER 1) IV SCH (11:46)
[2021-07-25] MEDS: cefTRIAXone SOD 1 GM in D5W MINI-BAG PLUS 50 ML IV SCH (11:46)
[2021-07-25 11:47] LABS: EOS % 0.2 % (0.0-3.0); HEMATOCRIT 29.4 % (42.0-52.0); HEMOGLOBIN 9.3 g/dl (13.5-17.5); LYMPH # 0.8 10^3/uL (1.5-5.0); LYMPH % 12.5 % (24.0-44.0); MEAN CORPUSCULAR HEMOGLOBIN 25.4 pg (27.0-33.0); MEAN CORPUSCULAR HGB CONC 31.6 g/dl (32.0-36.5); MEAN CORPUSCULAR VOLUME 80.3 fl (80.0-96.0); MONO # 0.5 10^3/uL (0.0-0.8); MONO % 7.3 % (2.0-8.0); NEUTROPHILS % 79.4 % (36.0-66.0); PLATELET COUNT, AUTOMATED 179 10^3/uL (150-450); RED BLOOD COUNT 3.66 10^6/uL (4.30-6.10); WHITE BLOOD COUNT 6.3 10^3/uL (4.0-10.0)
[2021-07-25] MEDS: NS 1,000 ML IV SCH ×2 (11:48→21:33)
[2021-07-25 12:08] LABS: INR 1.08; PROTHROMBIN TIME 14.4 SECONDS (12.7-14.5)
[2021-07-25 12:09] LABS: PARTIAL THROMBOPLASTIN TIME 31.8 SECONDS (25.9-37.0)
[2021-07-25 12:33] LABS: BLOOD UREA NITROGEN 31 MG/DL (7-18); CALCIUM LEVEL 8.8 MG/DL (8.8-10.2); CARBON DIOXIDE LEVEL 27 MEQ/L (21-32); CHLORIDE LEVEL 101 MEQ/L (98-107); CREATININE FOR GFR 1.16 MG/DL (0.70-1.30); GLOMERULAR FILTRATION RATE > 60.0 (>42); GLUCOSE, FASTING 137 MG/DL (70-100); POTASSIUM SERUM 4.7 MEQ/L (3.5-5.1); SODIUM LEVEL 134 MEQ/L (136-145)
[2021-07-25] MEDS ORDERED: GLUCAGON INJ 1MG VIAL SC PRN (14:35)
[2021-07-25] MEDS ORDERED: DEXTROSE 50% 50 ML SYRINGE IV PRN (14:35)
[2021-07-25] MEDS ORDERED: GLUCOSE 4GM CHEW TABLET PO PRN (14:35)
[2021-07-25] MEDS: ASPIRIN 81MG ENTERIC TABLET PO SCH (21:35)
[2021-07-26] VITALS: BP 120/73; O2SAT 93
[2021-07-26 04:00] VITALS: BP 136/74; O2SAT 92
[2021-07-26 05:04] LABS: HEMATOCRIT 28.3 % (42.0-52.0); HEMOGLOBIN 8.9 g/dl (13.5-17.5); LYMPH % 15.8 % (24.0-44.0); MEAN CORPUSCULAR HEMOGLOBIN 25.6 pg (27.0-33.0); MEAN CORPUSCULAR HGB CONC 31.4 g/dl (32.0-36.5); MEAN CORPUSCULAR VOLUME 81.6 fl (80.0-96.0); MONO # 0.5 10^3/uL (0.0-0.8); MONO % 7.8 % (2.0-8.0); NEUTROPHILS # 4.6 10^3/uL (1.5-8.5); NEUTROPHILS % 75.9 % (36.0-66.0); PLATELET COUNT, AUTOMATED 164 10^3/uL (150-450); RED BLOOD COUNT 3.47 10^6/uL (4.30-6.10); WHITE BLOOD COUNT 6.1 10^3/uL (4.0-10.0)
[2021-07-26 05:35] LABS: BLOOD UREA NITROGEN 30 MG/DL (7-18); CALCIUM LEVEL 8.5 MG/DL (8.8-10.2); CARBON DIOXIDE LEVEL 27 MEQ/L (21-32); CHLORIDE LEVEL 106 MEQ/L (98-107); CREATININE FOR GFR 1.23 MG/DL (0.70-1.30); GLOMERULAR FILTRATION RATE > 60.0 (>42); GLUCOSE, FASTING 117 MG/DL (70-100); POTASSIUM SERUM 3.8 MEQ/L (3.5-5.1); SODIUM LEVEL 138 MEQ/L (136-145)
[2021-07-26] MEDS: NS 1,000 ML IV SCH (07:22)
[2021-07-26 07:29] VITALS: BP 141/75
[2021-07-26] MEDS: LACTOBACILLUS ACIDOPHILUS CAP (BACID) PO SCH ×2 (07:59→17:24)
[2021-07-26] MEDS: ATORVASTATIN 20 MG TAB PO SCH (08:02)
[2021-07-26] MEDS: RIVAROXABAN 2.5 MG PO SCH ×2 (08:02→20:39)
[2021-07-26] MEDS: FLUTICASONE PROP 0.05% NASAL SPRAY 16 GM (FLONASE) SCH (08:03)
[2021-07-26] MEDS: MIRALAX *UNIT DOSE* 17GM PACKET PO SCH (08:03)
[2021-07-26] MEDS: oxyBUTYnin 5 MG TAB PO SCH ×2 (08:03→20:39)
[2021-07-26] MEDS: dexameTHASONE 4 MG/ML 1ML VIAL (J1100 PER 1MG) IV SCH (08:03)
[2021-07-26 12:21] VITALS: BP 121/67
[2021-07-26] MEDS: HumaLOG INSULIN (NovoLOG) PER UNIT SC SCH ×3 (13:21→20:18)
[2021-07-26] MEDS: cefTRIAXone SOD 1 GM in D5W MINI-BAG PLUS 50 ML IV SCH (13:21)
[2021-07-26] MEDS: BACLOFEN 10 MG TAB PO SCH (13:21)
[2021-07-26] MEDS: PANTOPRAZOLE 40MG VIAL (C9113 PER 1) IV SCH (13:21)
[2021-07-26] MEDS: DOCUSATE SODIUM 100MG CAPSULE PO SCH ×2 (13:25→20:39)
[2021-07-26 15:04] VITALS: BP 115/57
[2021-07-26] MEDS: ASPIRIN 81MG ENTERIC TABLET PO SCH (20:39)
[2021-07-26 21:00] VITALS: BP 134/71
[2021-07-27 05:38] VITALS: BP 155/88
[2021-07-27 06:42] VITALS: BP 140/75
[2021-07-27] MEDS: HumaLOG INSULIN (NovoLOG) PER UNIT SC SCH ×4 (07:30→20:37)
[2021-07-27 08:10] LABS: BASO % 0.1 % (0.0-1.0); EOS % 0.5 % (0.0-3.0); HEMATOCRIT 30.8 % (42.0-52.0); HEMOGLOBIN 9.8 g/dl (13.5-17.5); LYMPH # 1.4 10^3/uL (1.5-5.0); LYMPH % 16.6 % (24.0-44.0); MEAN CORPUSCULAR HEMOGLOBIN 26.1 pg (27.0-33.0); MEAN CORPUSCULAR HGB CONC 31.8 g/dl (32.0-36.5); MEAN CORPUSCULAR VOLUME 81.9 fl (80.0-96.0); MONO # 0.7 10^3/uL (0.0-0.8); NEUTROPHILS # 6.4 10^3/uL (1.5-8.5); NEUTROPHILS % 74.4 % (36.0-66.0); PLATELET COUNT, AUTOMATED 171 10^3/uL (150-450); RED BLOOD COUNT 3.76 10^6/uL (4.30-6.10); WHITE BLOOD COUNT 8.5 10^3/uL (4.0-10.0)
[2021-07-27 08:29] LABS: BLOOD UREA NITROGEN 27 MG/DL (7-18); CARBON DIOXIDE LEVEL 27 MEQ/L (21-32); CHLORIDE LEVEL 107 MEQ/L (98-107); CREATININE FOR GFR 1.22 MG/DL (0.70-1.30); GLOMERULAR FILTRATION RATE > 60.0 (>42); GLUCOSE, FASTING 114 MG/DL (70-100); SODIUM LEVEL 141 MEQ/L (136-145)
[2021-07-27] MEDS: BACLOFEN 10 MG TAB PO SCH (08:29)
[2021-07-27] MEDS: DOCUSATE SODIUM 100MG CAPSULE PO SCH ×2 (08:29→20:55)
[2021-07-27] MEDS: LACTOBACILLUS ACIDOPHILUS CAP (BACID) PO SCH ×2 (08:30→18:54)
[2021-07-27] MEDS: oxyBUTYnin 5 MG TAB PO SCH ×2 (08:30→20:56)
[2021-07-27] MEDS: dexameTHASONE 4 MG/ML 1ML VIAL (J1100 PER 1MG) IV SCH (08:31)
[2021-07-27] MEDS: RIVAROXABAN 2.5 MG PO SCH ×2 (08:31→20:56)
[2021-07-27] MEDS: MIRALAX *UNIT DOSE* 17GM PACKET PO SCH (08:31)
[2021-07-27] MEDS: FLUTICASONE PROP 0.05% NASAL SPRAY 16 GM (FLONASE) SCH (08:41)
[2021-07-27] MEDS: cefTRIAXone SOD 1 GM in D5W MINI-BAG PLUS 50 ML IV SCH (12:22)
[2021-07-27] MEDS: PANTOPRAZOLE 40MG VIAL (C9113 PER 1) IV SCH (12:22)
[2021-07-27 14:00] VITALS: BP 158/87
[2021-07-27 20:00] VITALS: BP 142/80
[2021-07-27] MEDS: ASPIRIN 81MG ENTERIC TABLET PO SCH (20:55)
[2021-07-28 06:25] VITALS: BP 139/80
[2021-07-28] MEDS: DOCUSATE SODIUM 100MG CAPSULE PO SCH ×2 (08:35→20:51)
[2021-07-28] MEDS: oxyBUTYnin 5 MG TAB PO SCH ×2 (08:36→20:51)
[2021-07-28] MEDS: BACLOFEN 10 MG TAB PO SCH ×2 (08:36→20:51)
[2021-07-28] MEDS: LACTOBACILLUS ACIDOPHILUS CAP (BACID) PO SCH ×2 (08:36→17:35)
[2021-07-28] MEDS: predniSONE 10 MG TAB PO SCH (08:37)
[2021-07-28] MEDS: MIRALAX *UNIT DOSE* 17GM PACKET PO SCH (08:37)
[2021-07-28] MEDS: RIVAROXABAN 2.5 MG PO SCH ×2 (08:38→20:52)
[2021-07-28] MEDS: FLUTICASONE PROP 0.05% NASAL SPRAY 16 GM (FLONASE) SCH (08:38)
[2021-07-28] MEDS: HumaLOG INSULIN (NovoLOG) PER UNIT SC SCH ×4 (08:38→20:52)
[2021-07-28] MEDS: cefTRIAXone SOD 1 GM in D5W MINI-BAG PLUS 50 ML IV SCH (12:35)
[2021-07-28] MEDS: PANTOPRAZOLE 40MG VIAL (C9113 PER 1) IV SCH (12:36)
[2021-07-28 14:10] VITALS: BP 141/90
[2021-07-28 20:50] VITALS: BP 128/80
[2021-07-28] MEDS: ASPIRIN 81MG ENTERIC TABLET PO SCH (20:52)
[2021-07-29 06:21] VITALS: BP 134/84
[2021-07-29] MEDS: RIVAROXABAN 2.5 MG PO SCH ×2 (08:55→20:03)
[2021-07-29] MEDS: predniSONE 10 MG TAB PO SCH (08:55)
[2021-07-29] MEDS: oxyBUTYnin 5 MG TAB PO SCH ×2 (08:55→20:03)
[2021-07-29] MEDS: BACLOFEN 10 MG TAB PO SCH (08:56)
[2021-07-29] MEDS: LACTOBACILLUS ACIDOPHILUS CAP (BACID) PO SCH ×2 (08:56→18:27)
[2021-07-29] MEDS: MIRALAX *UNIT DOSE* 17GM PACKET PO SCH (08:56)
[2021-07-29] MEDS: FLUTICASONE PROP 0.05% NASAL SPRAY 16 GM (FLONASE) SCH (08:57)
[2021-07-29] MEDS: DOCUSATE SODIUM 100MG CAPSULE PO SCH ×2 (08:57→20:03)
[2021-07-29] MEDS: AMOXICILLIN 875 MG TAB PO SCH ×2 (08:57→20:02)
[2021-07-29] MEDS: HumaLOG INSULIN (NovoLOG) PER UNIT SC SCH ×4 (08:57→20:02)
[2021-07-29] MEDS: PANTOPRAZOLE 40MG VIAL (C9113 PER 1) IV SCH (12:23)
[2021-07-29] MEDS ORDERED: LEVEMIR (INSULIN DETEMIR) 1 UNITS/0.01ML SC ONE (13:05)
[2021-07-29 14:00] VITALS: BP 139/81
[2021-07-29] MEDS: ASPIRIN 81MG ENTERIC TABLET PO SCH (20:02)
[2021-07-29 20:27] VITALS: BP 124/85
[2021-07-30 06:00] VITALS: BP 136/74
[2021-07-30 06:49] LABS: BASO % 0.2 % (0.0-1.0); EOS % 0.5 % (0.0-3.0); HEMATOCRIT 28.9 % (42.0-52.0); LYMPH # 1.2 10^3/uL (1.5-5.0); LYMPH % 18.6 % (24.0-44.0); MEAN CORPUSCULAR HEMOGLOBIN 25.9 pg (27.0-33.0); MEAN CORPUSCULAR HGB CONC 31.1 g/dl (32.0-36.5); MEAN CORPUSCULAR VOLUME 83.3 fl (80.0-96.0); MONO # 0.5 10^3/uL (0.0-0.8); MONO % 8.5 % (2.0-8.0); NEUTROPHILS # 4.5 10^3/uL (1.5-8.5); NEUTROPHILS % 71.9 % (36.0-66.0); PLATELET COUNT, AUTOMATED 210 10^3/uL (150-450); RED BLOOD COUNT 3.47 10^6/uL (4.30-6.10); WHITE BLOOD COUNT 6.3 10^3/uL (4.0-10.0)
[2021-07-30 07:13] LABS: BLOOD UREA NITROGEN 30 MG/DL (7-18); CALCIUM LEVEL 8.6 MG/DL (8.8-10.2); CARBON DIOXIDE LEVEL 28 MEQ/L (21-32); CHLORIDE LEVEL 108 MEQ/L (98-107); CREATININE FOR GFR 1.22 MG/DL (0.70-1.30); GLOMERULAR FILTRATION RATE > 60.0 (>42); GLUCOSE, FASTING 142 MG/DL (70-100); POTASSIUM SERUM 4.3 MEQ/L (3.5-5.1); SODIUM LEVEL 140 MEQ/L (136-145)
[2021-07-30] MEDS: AMOXICILLIN 875 MG TAB PO SCH (07:58)
[2021-07-30] MEDS: predniSONE 10 MG TAB PO SCH (07:58)
[2021-07-30] MEDS: ATORVASTATIN 20 MG TAB PO SCH (07:58)
[2021-07-30] MEDS: LACTOBACILLUS ACIDOPHILUS CAP (BACID) PO SCH (07:58)
[2021-07-30] MEDS: DOCUSATE SODIUM 100MG CAPSULE PO SCH (07:58)
[2021-07-30] MEDS: RIVAROXABAN 2.5 MG PO SCH (07:59)
[2021-07-30] MEDS: MIRALAX *UNIT DOSE* 17GM PACKET PO SCH (07:59)
[2021-07-30] MEDS: oxyBUTYnin 5 MG TAB PO SCH (07:59)
[2021-07-30] MEDS: HumaLOG INSULIN (NovoLOG) PER UNIT SC SCH ×2 (08:00→12:24)
[2021-07-30] MEDS: FLUTICASONE PROP 0.05% NASAL SPRAY 16 GM (FLONASE) SCH (08:00)
[2021-07-30] MEDS ORDERED: BACLOFEN 10 MG TAB PO SCH (09:00)
[2021-07-30] MEDS ORDERED: PANTOPRAZOLE 40MG TAB (PROTONIX) PO SCH (09:00)
[2021-07-30] MEDS ORDERED: LEVEMIR (INSULIN DETEMIR) 1 UNITS/0.01ML SC SCH ×2 (09:00)
[2021-07-30] MEDS ORDERED: AMOX875T PO (11:57)
[2021-07-30 14:00] VITALS: BP 149/83
== END 2021-07-30 14:48 | DRG 698 ==
LOC: M ED 17:43 → M ED INP 21:57 → ENRESERV 07-25 00:04 → M PCU 07-25 01:15 → M MSPAV 07-26 14:57
PROVIDERS: ADMIT Family Medicine; ATTEND Internal Medicine Nephrology
DX: T83.511A Infection and inflammatory reaction due to indwelling urethral catheter, initial encounter (principal); J18.9 Pneumonia, unspecified organism; E87.1 Hypo-osmolality and hyponatremia; G35 Multiple sclerosis; I25.10 Atherosclerotic heart disease of native coronary artery without angina pectoris; Z95.5 Presence of coronary angioplasty implant and graft; E11.51 Type 2 diabetes mellitus with diabetic peripheral angiopathy without gangrene; K74.60 Unspecified cirrhosis of liver; K21.9 Gastro-esophageal reflux disease without esophagitis; N39.0 Urinary tract infection, site not specified; Z79.01 Long term (current) use of anticoagulants; I10 Essential (primary) hypertension; G47.33 Obstructive sleep apnea (adult) (pediatric); N31.9 Neuromuscular dysfunction of bladder, unspecified; Z87.891 Personal history of nicotine dependence; T68.XXXA Hypothermia, initial encounter; E78.5 Hyperlipidemia, unspecified; Z20.822 Contact with and (suspected) exposure to COVID-19; Z79.82 Long term (current) use of aspirin; Z79.84 Long term (current) use of oral hypoglycemic drugs; Z79.899 Other long term (current) drug therapy; Z88.8 Allergy status to other drugs, medicaments and biological substances

== ENCOUNTER 2021-07-30 12:30 | Inpatient (IN) | payer MEDICARE, OTHER ==
[~2021-07-30] VITALS: Ht 175.3 cm; Wt 83.4 kg
[~2021-07-30 12:30] MED LIST changes: +AMOX875T PO; +BACITAB PO; -FLUC150T PO; +FLUC150T9 PO; +MELA3TAB30 PO; +MIRA1POW3 PO; +PROAAER10 INH
[2021-07-30 15:00] VITALS: BP 153/80
[2021-07-30] MEDS ORDERED: GLUCOSE 4GM CHEW TABLET PO PRN (16:45)
[2021-07-30] MEDS ORDERED: MIRALAX *UNIT DOSE* 17GM PACKET PO PRN (16:45)
[2021-07-30] MEDS ORDERED: ENTER DRUG NAME HERE (PATIENT'S OWN MED) PO SCH (16:45)
[2021-07-30] MEDS ORDERED: GLUCAGON INJ 1MG VIAL SC PRN (16:45)
[2021-07-30] MEDS ORDERED: DEXTROSE 50% 50 ML SYRINGE IV PRN (16:45)
[2021-07-30] MEDS: LACTOBACILLUS ACIDOPHILUS CAP (BACID) PO SCH (17:43)
[2021-07-30] MEDS: HumaLOG INSULIN (NovoLOG) PER UNIT SC SCH ×2 (17:43→22:08)
[2021-07-30] MEDS: RIVAROXABAN 2.5 MG PO SCH (17:44)
[2021-07-30 20:00] VITALS: BP 146/79
[2021-07-30] MEDS: COMBIVENT RESPIMAT 100-20MCG INHALER 4GM INH SCH (20:04)
[2021-07-30] MEDS: AMOXICILLIN 875 MG TAB PO SCH (22:08)
[2021-07-30] MEDS: ASPIRIN 81MG ENTERIC TABLET PO SCH (22:08)
[2021-07-30] MEDS: oxyBUTYnin 5 MG TAB PO SCH (22:08)
[2021-07-30] MEDS: POLYVINYL ALCOHOL OPHTH SOLN 15 ML(LIQUITEARS) OU SCH (22:09)
[2021-07-30] MEDS: FLUTICASONE PROP 0.05% NASAL SPRAY 16 GM (FLONASE) NARES SCH (22:09)
[2021-07-30] MEDS: DOCUSATE SODIUM 100MG CAPSULE PO SCH (22:09)
[2021-07-30] MEDS: REMEDY PHYTOPLEX Z-GUARD PASTE 113GM TUBE (FROM STOREROOM PRODUCT) TOP SCH (22:10)
[2021-07-31 05:55] VITALS: BP 141/72
[2021-07-31 07:02] LABS: BASO % 0.3 % (0.0-1.0); EOS # 0.1 10^3/uL (0.0-0.5); EOS % 1.1 % (0.0-3.0); HEMATOCRIT 29.9 % (42.0-52.0); HEMOGLOBIN 9.2 g/dl (13.5-17.5); LYMPH # 1.7 10^3/uL (1.5-5.0); MEAN CORPUSCULAR HEMOGLOBIN 25.3 pg (27.0-33.0); MEAN CORPUSCULAR HGB CONC 30.8 g/dl (32.0-36.5); MEAN CORPUSCULAR VOLUME 82.4 fl (80.0-96.0); MONO # 0.5 10^3/uL (0.0-0.8); MONO % 6.6 % (2.0-8.0); NEUTROPHILS # 5.5 10^3/uL (1.5-8.5); NEUTROPHILS % 70.6 % (36.0-66.0); PLATELET COUNT, AUTOMATED 260 10^3/uL (150-450); RED BLOOD COUNT 3.63 10^6/uL (4.30-6.10); WHITE BLOOD COUNT 7.9 10^3/uL (4.0-10.0)
[2021-07-31 07:42] LABS: ALBUMIN 2.6 GM/DL (3.2-5.2); BILIRUBIN,TOTAL 0.6 MG/DL (0.2-1.0); CALCIUM LEVEL 8.8 MG/DL (8.8-10.2); CREATININE FOR GFR 1.24 MG/DL (0.70-1.30); POTASSIUM SERUM 4.2 MEQ/L (3.5-5.1); TOTAL PROTEIN 6.7 GM/DL (6.4-8.2)
[2021-07-31] MEDS: HumaLOG INSULIN (NovoLOG) PER UNIT SC SCH ×4 (07:51→22:37)
[2021-07-31] MEDS: AMOXICILLIN 875 MG TAB PO SCH ×2 (07:52→22:37)
[2021-07-31] MEDS: ASCORBIC ACID 500 MG TAB PO SCH (07:52)
[2021-07-31] MEDS: LEVEMIR (INSULIN DETEMIR) 1 UNITS/0.01ML SC SCH (07:52)
[2021-07-31] MEDS: OYSTER SHELL CALCIUM 500 MG TAB PO SCH (07:52)
[2021-07-31] MEDS: LACTOBACILLUS ACIDOPHILUS CAP (BACID) PO SCH ×2 (07:52→17:29)
[2021-07-31] MEDS: predniSONE 10 MG TAB PO SCH (07:53)
[2021-07-31] MEDS: PANTOPRAZOLE 40MG TAB (PROTONIX) PO SCH (07:53)
[2021-07-31] MEDS: oxyBUTYnin 5 MG TAB PO SCH ×2 (07:53→22:36)
[2021-07-31] MEDS: RIVAROXABAN 2.5 MG PO SCH ×2 (07:54→17:29)
[2021-07-31] MEDS: DOCUSATE SODIUM 100MG CAPSULE PO SCH ×2 (07:54→22:36)
[2021-07-31] MEDS: BACLOFEN 10 MG TAB PO SCH (07:54)
[2021-07-31] MEDS: POLYVINYL ALCOHOL OPHTH SOLN 15 ML(LIQUITEARS) OU SCH ×3 (07:55→22:38)
[2021-07-31] MEDS: REMEDY PHYTOPLEX Z-GUARD PASTE 113GM TUBE (FROM STOREROOM PRODUCT) TOP SCH ×3 (07:55→21:00)
[2021-07-31] MEDS: FLUTICASONE PROP 0.05% NASAL SPRAY 16 GM (FLONASE) NARES SCH ×2 (07:55→22:38)
[2021-07-31] MEDS: COMBIVENT RESPIMAT 100-20MCG INHALER 4GM INH SCH ×3 (07:57→20:00)
[2021-07-31 14:00] VITALS: BP 152/82
[2021-07-31 20:00] VITALS: BP 164/88
[2021-07-31] MEDS: ASPIRIN 81MG ENTERIC TABLET PO SCH (22:36)
[2021-08-01 06:00] VITALS: BP 140/81
[2021-08-01] MEDS: HumaLOG INSULIN (NovoLOG) PER UNIT SC SCH ×4 (08:11→20:40)
[2021-08-01] MEDS: PANTOPRAZOLE 40MG TAB (PROTONIX) PO SCH (08:12)
[2021-08-01] MEDS: predniSONE 10 MG TAB PO SCH (08:12)
[2021-08-01] MEDS: BACLOFEN 10 MG TAB PO SCH (08:12)
[2021-08-01] MEDS: ASCORBIC ACID 500 MG TAB PO SCH (08:12)
[2021-08-01] MEDS: oxyBUTYnin 5 MG TAB PO SCH ×2 (08:12→20:40)
[2021-08-01] MEDS: AMOXICILLIN 875 MG TAB PO SCH ×2 (08:12→20:40)
[2021-08-01] MEDS: ATORVASTATIN 20 MG TAB PO SCH (08:12)
[2021-08-01] MEDS: OYSTER SHELL CALCIUM 500 MG TAB PO SCH (08:12)
[2021-08-01] MEDS: DOCUSATE SODIUM 100MG CAPSULE PO SCH ×2 (08:12→20:40)
[2021-08-01] MEDS: LACTOBACILLUS ACIDOPHILUS CAP (BACID) PO SCH ×2 (08:12→17:30)
[2021-08-01] MEDS: RIVAROXABAN 2.5 MG PO SCH ×2 (08:13→17:30)
[2021-08-01] MEDS: POLYVINYL ALCOHOL OPHTH SOLN 15 ML(LIQUITEARS) OU SCH ×3 (08:13→20:42)
[2021-08-01] MEDS: FLUTICASONE PROP 0.05% NASAL SPRAY 16 GM (FLONASE) NARES SCH ×2 (08:13→20:41)
[2021-08-01] MEDS: LEVEMIR (INSULIN DETEMIR) 1 UNITS/0.01ML SC SCH (08:13)
[2021-08-01] MEDS: COMBIVENT RESPIMAT 100-20MCG INHALER 4GM INH SCH ×3 (08:16→20:00)
[2021-08-01 08:20] LABS: BASO % 0.2 % (0.0-1.0); EOS # 0.1 10^3/uL (0.0-0.5); EOS % 1.4 % (0.0-3.0); HEMATOCRIT 32.8 % (42.0-52.0); HEMOGLOBIN 10.1 g/dl (13.5-17.5); LYMPH # 1.4 10^3/uL (1.5-5.0); LYMPH % 14.7 % (24.0-44.0); MEAN CORPUSCULAR HEMOGLOBIN 25.4 pg (27.0-33.0); MEAN CORPUSCULAR HGB CONC 30.8 g/dl (32.0-36.5); MEAN CORPUSCULAR VOLUME 82.6 fl (80.0-96.0); MONO # 0.5 10^3/uL (0.0-0.8); MONO % 4.9 % (2.0-8.0); NEUTROPHILS # 7.2 10^3/uL (1.5-8.5); NEUTROPHILS % 78.4 % (36.0-66.0); PLATELET COUNT, AUTOMATED 315 10^3/uL (150-450); RED BLOOD COUNT 3.97 10^6/uL (4.30-6.10); WHITE BLOOD COUNT 9.2 10^3/uL (4.0-10.0)
[2021-08-01] MEDS: REMEDY PHYTOPLEX Z-GUARD PASTE 113GM TUBE (FROM STOREROOM PRODUCT) TOP SCH ×3 (08:25→20:42)
[2021-08-01 09:00] LABS: CALCIUM LEVEL 9.2 MG/DL (8.8-10.2); CREATININE FOR GFR 1.28 MG/DL (0.70-1.30); GLOMERULAR FILTRATION RATE 57.9 (>42); POTASSIUM SERUM 4.3 MEQ/L (3.5-5.1)
[2021-08-01] MEDS: FUROSEMIDE 20 MG TAB PO SCH (10:57)
[2021-08-01 14:00] VITALS: BP 139/74
[2021-08-01 20:00] VITALS: BP 116/72
[2021-08-01] MEDS: ASPIRIN 81MG ENTERIC TABLET PO SCH (20:40)
[2021-08-02 06:00] VITALS: BP 130/78
[2021-08-02] MEDS: PANTOPRAZOLE 40MG TAB (PROTONIX) PO SCH (08:22)
[2021-08-02] MEDS: ASCORBIC ACID 500 MG TAB PO SCH (08:22)
[2021-08-02] MEDS: ATORVASTATIN 20 MG TAB PO SCH (08:22)
[2021-08-02] MEDS: RIVAROXABAN 2.5 MG PO SCH ×2 (08:22→17:56)
[2021-08-02] MEDS: AMOXICILLIN 875 MG TAB PO SCH ×2 (08:22→20:17)
[2021-08-02] MEDS: predniSONE 10 MG TAB PO SCH (08:22)
[2021-08-02] MEDS: BACLOFEN 10 MG TAB PO SCH (08:23)
[2021-08-02] MEDS: LACTOBACILLUS ACIDOPHILUS CAP (BACID) PO SCH ×2 (08:23→17:57)
[2021-08-02] MEDS: DOCUSATE SODIUM 100MG CAPSULE PO SCH ×2 (08:23→20:17)
[2021-08-02] MEDS: FUROSEMIDE 20 MG TAB PO SCH (08:23)
[2021-08-02] MEDS: LEVEMIR (INSULIN DETEMIR) 1 UNITS/0.01ML SC SCH (08:23)
[2021-08-02] MEDS: oxyBUTYnin 5 MG TAB PO SCH ×2 (08:23→20:17)
[2021-08-02] MEDS: HumaLOG INSULIN (NovoLOG) PER UNIT SC SCH ×4 (08:24→20:17)
[2021-08-02] MEDS: OYSTER SHELL CALCIUM 500 MG TAB PO SCH (08:24)
[2021-08-02] MEDS: FLUTICASONE PROP 0.05% NASAL SPRAY 16 GM (FLONASE) NARES SCH ×2 (08:25→20:18)
[2021-08-02] MEDS: POLYVINYL ALCOHOL OPHTH SOLN 15 ML(LIQUITEARS) OU SCH ×3 (08:25→20:18)
[2021-08-02] MEDS: REMEDY PHYTOPLEX Z-GUARD PASTE 113GM TUBE (FROM STOREROOM PRODUCT) TOP SCH ×3 (08:28→20:18)
[2021-08-02] MEDS: COMBIVENT RESPIMAT 100-20MCG INHALER 4GM INH SCH ×3 (10:28→20:00)
[2021-08-02 14:00] VITALS: BP 137/78
[2021-08-02 20:00] VITALS: BP 127/73
[2021-08-02] MEDS: ASPIRIN 81MG ENTERIC TABLET PO SCH (20:16)
[2021-08-03 06:00] VITALS: BP 136/77
[2021-08-03] MEDS: COMBIVENT RESPIMAT 100-20MCG INHALER 4GM INH SCH ×3 (07:28→19:53)
[2021-08-03 07:45] LABS: CALCIUM LEVEL 8.4 MG/DL (8.8-10.2); CREATININE FOR GFR 1.26 MG/DL (0.70-1.30); GLOMERULAR FILTRATION RATE 58.9 (>42)
[2021-08-03 08:18] LABS: BASO % 0.1 % (0.0-1.0); EOS # 0.1 10^3/uL (0.0-0.5); HEMATOCRIT 29.7 % (42.0-52.0); HEMOGLOBIN 9.1 g/dl (13.5-17.5); LYMPH # 1.4 10^3/uL (1.5-5.0); LYMPH % 20.3 % (24.0-44.0); MEAN CORPUSCULAR HEMOGLOBIN 25.1 pg (27.0-33.0); MEAN CORPUSCULAR HGB CONC 30.6 g/dl (32.0-36.5); MONO # 0.4 10^3/uL (0.0-0.8); MONO % 6.1 % (2.0-8.0); NEUTROPHILS % 72.1 % (36.0-66.0); PLATELET COUNT, AUTOMATED 338 10^3/uL (150-450); RED BLOOD COUNT 3.62 10^6/uL (4.30-6.10); WHITE BLOOD COUNT 6.9 10^3/uL (4.0-10.0)
[2021-08-03] MEDS: HumaLOG INSULIN (NovoLOG) PER UNIT SC SCH ×4 (08:40→21:16)
[2021-08-03] MEDS: LEVEMIR (INSULIN DETEMIR) 1 UNITS/0.01ML SC SCH (08:41)
[2021-08-03] MEDS: ASCORBIC ACID 500 MG TAB PO SCH (08:41)
[2021-08-03] MEDS: PANTOPRAZOLE 40MG TAB (PROTONIX) PO SCH (08:41)
[2021-08-03] MEDS: oxyBUTYnin 5 MG TAB PO SCH ×2 (08:41→21:15)
[2021-08-03] MEDS: BACLOFEN 10 MG TAB PO SCH (08:41)
[2021-08-03] MEDS: OYSTER SHELL CALCIUM 500 MG TAB PO SCH (08:41)
[2021-08-03] MEDS: LACTOBACILLUS ACIDOPHILUS CAP (BACID) PO SCH ×2 (08:41→18:06)
[2021-08-03] MEDS: AMOXICILLIN 875 MG TAB PO SCH ×2 (08:41→21:15)
[2021-08-03] MEDS: predniSONE 10 MG TAB PO SCH (08:42)
[2021-08-03] MEDS: FUROSEMIDE 20 MG TAB PO SCH (08:42)
[2021-08-03] MEDS: DOCUSATE SODIUM 100MG CAPSULE PO SCH ×2 (08:42→21:15)
[2021-08-03] MEDS: REMEDY PHYTOPLEX Z-GUARD PASTE 113GM TUBE (FROM STOREROOM PRODUCT) TOP SCH ×3 (08:42→21:00)
[2021-08-03] MEDS: FLUTICASONE PROP 0.05% NASAL SPRAY 16 GM (FLONASE) NARES SCH ×2 (08:47→21:16)
[2021-08-03] MEDS: POLYVINYL ALCOHOL OPHTH SOLN 15 ML(LIQUITEARS) OU SCH ×3 (08:50→21:16)
[2021-08-03] MEDS: RIVAROXABAN 2.5 MG PO SCH ×2 (08:55→18:12)
[2021-08-03 14:00] VITALS: BP 148/89
[2021-08-03 15:22] VITALS: BP 148/89
[2021-08-03 20:05] VITALS: BP 156/71
[2021-08-03] MEDS: ASPIRIN 81MG ENTERIC TABLET PO SCH (21:15)
[2021-08-04 05:53] VITALS: BP 146/80
[2021-08-04] MEDS: HumaLOG INSULIN (NovoLOG) PER UNIT SC SCH ×4 (06:53→21:19)
[2021-08-04] MEDS: COMBIVENT RESPIMAT 100-20MCG INHALER 4GM INH SCH ×3 (07:14→19:21)
[2021-08-04] MEDS: LEVEMIR (INSULIN DETEMIR) 1 UNITS/0.01ML SC SCH (08:03)
[2021-08-04] MEDS: DOCUSATE SODIUM 100MG CAPSULE PO SCH ×2 (09:00→21:20)
[2021-08-04] MEDS: REMEDY PHYTOPLEX Z-GUARD PASTE 113GM TUBE (FROM STOREROOM PRODUCT) TOP SCH ×3 (09:00→21:00)
[2021-08-04] MEDS: PANTOPRAZOLE 40MG TAB (PROTONIX) PO SCH (09:54)
[2021-08-04] MEDS: ASCORBIC ACID 500 MG TAB PO SCH (09:54)
[2021-08-04] MEDS: OYSTER SHELL CALCIUM 500 MG TAB PO SCH (09:54)
[2021-08-04] MEDS: LACTOBACILLUS ACIDOPHILUS CAP (BACID) PO SCH ×2 (09:54→17:29)
[2021-08-04] MEDS: predniSONE 10 MG TAB PO SCH (09:55)
[2021-08-04] MEDS: BACLOFEN 10 MG TAB PO SCH (09:55)
[2021-08-04] MEDS: AMOXICILLIN 875 MG TAB PO SCH (09:55)
[2021-08-04] MEDS: oxyBUTYnin 5 MG TAB PO SCH ×2 (09:55→21:20)
[2021-08-04] MEDS: RIVAROXABAN 2.5 MG PO SCH ×2 (09:56→17:29)
[2021-08-04] MEDS: FLUTICASONE PROP 0.05% NASAL SPRAY 16 GM (FLONASE) NARES SCH ×2 (09:59→21:20)
[2021-08-04] MEDS: POLYVINYL ALCOHOL OPHTH SOLN 15 ML(LIQUITEARS) OU SCH ×3 (10:00→21:20)
[2021-08-04 13:51] VITALS: BP 146/75
[2021-08-04 20:00] VITALS: BP 132/71
[2021-08-04] MEDS: ASPIRIN 81MG ENTERIC TABLET PO SCH (21:20)
[2021-08-05 06:00] VITALS: BP 132/74
[2021-08-05] MEDS: COMBIVENT RESPIMAT 100-20MCG INHALER 4GM INH SCH ×3 (07:19→21:27)
[2021-08-05] MEDS: HumaLOG INSULIN (NovoLOG) PER UNIT SC SCH ×4 (08:16→21:49)
[2021-08-05] MEDS: OYSTER SHELL CALCIUM 500 MG TAB PO SCH (08:17)
[2021-08-05] MEDS: LEVEMIR (INSULIN DETEMIR) 1 UNITS/0.01ML SC SCH (08:17)
[2021-08-05] MEDS: predniSONE 10 MG TAB PO SCH (08:17)
[2021-08-05] MEDS: oxyBUTYnin 5 MG TAB PO SCH ×2 (08:17→21:48)
[2021-08-05] MEDS: ASCORBIC ACID 500 MG TAB PO SCH (08:17)
[2021-08-05] MEDS: LACTOBACILLUS ACIDOPHILUS CAP (BACID) PO SCH ×2 (08:18→16:53)
[2021-08-05] MEDS: DOCUSATE SODIUM 100MG CAPSULE PO SCH ×2 (08:18→21:48)
[2021-08-05] MEDS: BACLOFEN 10 MG TAB PO SCH (08:18)
[2021-08-05] MEDS: PANTOPRAZOLE 40MG TAB (PROTONIX) PO SCH (08:18)
[2021-08-05] MEDS: FLUTICASONE PROP 0.05% NASAL SPRAY 16 GM (FLONASE) NARES SCH ×2 (08:20→21:49)
[2021-08-05] MEDS: REMEDY PHYTOPLEX Z-GUARD PASTE 113GM TUBE (FROM STOREROOM PRODUCT) TOP SCH ×3 (08:21→21:00)
[2021-08-05] MEDS: POLYVINYL ALCOHOL OPHTH SOLN 15 ML(LIQUITEARS) OU SCH ×3 (08:21→21:49)
[2021-08-05] MEDS: RIVAROXABAN 2.5 MG PO SCH ×2 (08:23→16:53)
[2021-08-05 15:00] VITALS: BP 151/83
[2021-08-05 20:12] VITALS: BP 158/80
[2021-08-05] MEDS: ASPIRIN 81MG ENTERIC TABLET PO SCH (21:48)
[2021-08-05] MEDS: RAMELTEON 8 MG TAB (ROZEREM) PO PRN (21:48)
[2021-08-06 05:26] VITALS: BP 124/69
[2021-08-06 06:57] LABS: BASO % 0.3 % (0.0-1.0); EOS # 0.1 10^3/uL (0.0-0.5); EOS % 0.7 % (0.0-3.0); HEMATOCRIT 28.5 % (42.0-52.0); HEMOGLOBIN 8.9 g/dl (13.5-17.5); LYMPH # 1.7 10^3/uL (1.5-5.0); LYMPH % 24.3 % (24.0-44.0); MEAN CORPUSCULAR HEMOGLOBIN 25.4 pg (27.0-33.0); MEAN CORPUSCULAR HGB CONC 31.2 g/dl (32.0-36.5); MEAN CORPUSCULAR VOLUME 81.4 fl (80.0-96.0); MONO # 0.4 10^3/uL (0.0-0.8); MONO % 5.8 % (2.0-8.0); NEUTROPHILS # 4.7 10^3/uL (1.5-8.5); NEUTROPHILS % 68.6 % (36.0-66.0); PLATELET COUNT, AUTOMATED 312 10^3/uL (150-450); WHITE BLOOD COUNT 6.9 10^3/uL (4.0-10.0)
[2021-08-06 07:25] LABS: BLOOD UREA NITROGEN 33 MG/DL (7-18); CALCIUM LEVEL 8.4 MG/DL (8.8-10.2); CARBON DIOXIDE LEVEL 27 MEQ/L (21-32); CHLORIDE LEVEL 108 MEQ/L (98-107); CREATININE FOR GFR 1.21 MG/DL (0.70-1.30); GLOMERULAR FILTRATION RATE > 60.0 (>42); GLUCOSE, FASTING 169 MG/DL (70-100); SODIUM LEVEL 138 MEQ/L (136-145)
[2021-08-06] MEDS: COMBIVENT RESPIMAT 100-20MCG INHALER 4GM INH SCH ×3 (07:38→20:23)
[2021-08-06] MEDS: LEVEMIR (INSULIN DETEMIR) 1 UNITS/0.01ML SC SCH (07:41)
[2021-08-06] MEDS: RIVAROXABAN 2.5 MG PO SCH ×2 (07:41→17:39)
[2021-08-06] MEDS: DOCUSATE SODIUM 100MG CAPSULE PO SCH ×2 (07:42→20:51)
[2021-08-06] MEDS: LACTOBACILLUS ACIDOPHILUS CAP (BACID) PO SCH ×2 (07:42→17:39)
[2021-08-06] MEDS: ASCORBIC ACID 500 MG TAB PO SCH (07:42)
[2021-08-06] MEDS: HumaLOG INSULIN (NovoLOG) PER UNIT SC SCH ×4 (07:42→20:52)
[2021-08-06] MEDS: PANTOPRAZOLE 40MG TAB (PROTONIX) PO SCH (07:42)
[2021-08-06] MEDS: ATORVASTATIN 20 MG TAB PO SCH (07:42)
[2021-08-06] MEDS: BACLOFEN 10 MG TAB PO SCH (07:43)
[2021-08-06] MEDS: REMEDY PHYTOPLEX Z-GUARD PASTE 113GM TUBE (FROM STOREROOM PRODUCT) TOP SCH ×3 (07:43→20:52)
[2021-08-06] MEDS: predniSONE 10 MG TAB PO SCH (07:43)
[2021-08-06] MEDS: oxyBUTYnin 5 MG TAB PO SCH ×2 (07:43→20:52)
[2021-08-06] MEDS: OYSTER SHELL CALCIUM 500 MG TAB PO SCH (07:43)
[2021-08-06] MEDS: POLYVINYL ALCOHOL OPHTH SOLN 15 ML(LIQUITEARS) OU SCH ×3 (07:45→20:52)
[2021-08-06] MEDS: FLUTICASONE PROP 0.05% NASAL SPRAY 16 GM (FLONASE) NARES SCH ×2 (07:45→20:52)
[2021-08-06 14:00] VITALS: BP 128/67
[2021-08-06 20:07] VITALS: BP 129/73
[2021-08-06] MEDS: ASPIRIN 81MG ENTERIC TABLET PO SCH (20:52)
[2021-08-07 05:51] VITALS: BP 134/72
[2021-08-07] MEDS: HumaLOG INSULIN (NovoLOG) PER UNIT SC SCH ×4 (07:13→20:52)
[2021-08-07] MEDS: LEVEMIR (INSULIN DETEMIR) 1 UNITS/0.01ML SC SCH (07:14)
[2021-08-07] MEDS: BACLOFEN 10 MG TAB PO SCH (07:34)
[2021-08-07] MEDS: LACTOBACILLUS ACIDOPHILUS CAP (BACID) PO SCH ×2 (07:34→17:10)
[2021-08-07] MEDS: ASCORBIC ACID 500 MG TAB PO SCH (07:34)
[2021-08-07] MEDS: oxyBUTYnin 5 MG TAB PO SCH ×2 (07:34→20:51)
[2021-08-07] MEDS: DOCUSATE SODIUM 100MG CAPSULE PO SCH ×2 (07:34→20:51)
[2021-08-07] MEDS: OYSTER SHELL CALCIUM 500 MG TAB PO SCH (07:34)
[2021-08-07] MEDS: predniSONE 10 MG TAB PO SCH (07:34)
[2021-08-07] MEDS: PANTOPRAZOLE 40MG TAB (PROTONIX) PO SCH (07:34)
[2021-08-07] MEDS: RIVAROXABAN 2.5 MG PO SCH ×2 (07:35→17:13)
[2021-08-07] MEDS: FLUTICASONE PROP 0.05% NASAL SPRAY 16 GM (FLONASE) NARES SCH ×2 (07:35→20:52)
[2021-08-07] MEDS: POLYVINYL ALCOHOL OPHTH SOLN 15 ML(LIQUITEARS) OU SCH ×3 (07:35→20:52)
[2021-08-07] MEDS: REMEDY PHYTOPLEX Z-GUARD PASTE 113GM TUBE (FROM STOREROOM PRODUCT) TOP SCH ×3 (07:36→20:53)
[2021-08-07] MEDS: COMBIVENT RESPIMAT 100-20MCG INHALER 4GM INH SCH ×2 (08:10→20:00)
[2021-08-07 14:00] VITALS: BP 129/79
[2021-08-07 20:00] VITALS: BP 149/77
[2021-08-07] MEDS: ASPIRIN 81MG ENTERIC TABLET PO SCH (20:51)
[2021-08-08 06:00] VITALS: BP 127/62
[2021-08-08 06:12] LABS: BASO % 0.4 % (0.0-1.0); EOS # 0.1 10^3/uL (0.0-0.5); EOS % 0.9 % (0.0-3.0); HEMOGLOBIN 9.1 g/dl (13.5-17.5); LYMPH # 1.6 10^3/uL (1.5-5.0); LYMPH % 29.4 % (24.0-44.0); MEAN CORPUSCULAR HEMOGLOBIN 25.3 pg (27.0-33.0); MEAN CORPUSCULAR HGB CONC 31.4 g/dl (32.0-36.5); MEAN CORPUSCULAR VOLUME 80.6 fl (80.0-96.0); MONO # 0.4 10^3/uL (0.0-0.8); MONO % 6.5 % (2.0-8.0); NEUTROPHILS # 3.5 10^3/uL (1.5-8.5); NEUTROPHILS % 62.6 % (36.0-66.0); PLATELET COUNT, AUTOMATED 337 10^3/uL (150-450); WHITE BLOOD COUNT 5.6 10^3/uL (4.0-10.0)
[2021-08-08 06:41] LABS: BLOOD UREA NITROGEN 27 MG/DL (7-18); CALCIUM LEVEL 8.8 MG/DL (8.8-10.2); CARBON DIOXIDE LEVEL 26 MEQ/L (21-32); CHLORIDE LEVEL 106 MEQ/L (98-107); CREATININE FOR GFR 1.14 MG/DL (0.70-1.30); GLOMERULAR FILTRATION RATE > 60.0 (>42); GLUCOSE, FASTING 136 MG/DL (70-100); POTASSIUM SERUM 3.9 MEQ/L (3.5-5.1); SODIUM LEVEL 138 MEQ/L (136-145)
[2021-08-08] MEDS: COMBIVENT RESPIMAT 100-20MCG INHALER 4GM INH SCH ×3 (07:29→20:00)
[2021-08-08] MEDS: BACLOFEN 10 MG TAB PO SCH (07:48)
[2021-08-08] MEDS: predniSONE 10 MG TAB PO SCH (07:48)
[2021-08-08] MEDS: oxyBUTYnin 5 MG TAB PO SCH ×2 (07:48→21:26)
[2021-08-08] MEDS: PANTOPRAZOLE 40MG TAB (PROTONIX) PO SCH (07:48)
[2021-08-08] MEDS: OYSTER SHELL CALCIUM 500 MG TAB PO SCH (07:48)
[2021-08-08] MEDS: LACTOBACILLUS ACIDOPHILUS CAP (BACID) PO SCH ×2 (07:48→17:24)
[2021-08-08] MEDS: DOCUSATE SODIUM 100MG CAPSULE PO SCH ×2 (07:48→21:25)
[2021-08-08] MEDS: ASCORBIC ACID 500 MG TAB PO SCH (07:48)
[2021-08-08] MEDS: LEVEMIR (INSULIN DETEMIR) 1 UNITS/0.01ML SC SCH (07:49)
[2021-08-08] MEDS: HumaLOG INSULIN (NovoLOG) PER UNIT SC SCH ×4 (07:49→21:25)
[2021-08-08] MEDS: ATORVASTATIN 20 MG TAB PO SCH (07:51)
[2021-08-08] MEDS: POLYVINYL ALCOHOL OPHTH SOLN 15 ML(LIQUITEARS) OU SCH ×3 (07:52→21:24)
[2021-08-08] MEDS: REMEDY PHYTOPLEX Z-GUARD PASTE 113GM TUBE (FROM STOREROOM PRODUCT) TOP SCH ×3 (07:52→21:27)
[2021-08-08] MEDS: FLUTICASONE PROP 0.05% NASAL SPRAY 16 GM (FLONASE) NARES SCH ×2 (07:52→21:24)
[2021-08-08] MEDS: RIVAROXABAN 2.5 MG PO SCH ×2 (07:55→17:25)
[2021-08-08] MEDS: FERROUS SULFATE 325MG TAB PO SCH ×2 (09:00→21:25)
[2021-08-08 11:01] LABS: FERRITIN 62 NG/ML (26-388); IRON (FE) 17 UG/DL (65-175); PERCENT SATURATION 5.9 % (19.7-50.0); TOTAL IRON BINDING CAPACITY 287 UG/DL (250-450)
[2021-08-08 11:07] LABS: VITAMIN B12 LEVEL 1004 PG/ML (247-911)
[2021-08-08 14:00] VITALS: BP 140/82
[2021-08-08] MEDS: BISACODYL 5 MG TAB PO SCH (17:24)
[2021-08-08 20:00] VITALS: BP 123/63
[2021-08-08] MEDS: ASPIRIN 81MG ENTERIC TABLET PO SCH (21:25)
[2021-08-08] MEDS: ACETAMINOPHEN TAB 650MG DOSE (2X325MG) PO PRN (21:26)
[2021-08-08] MEDS: RAMELTEON 8 MG TAB (ROZEREM) PO PRN (21:26)
[2021-08-09 05:51] VITALS: BP 121/76
[2021-08-09] MEDS: COMBIVENT RESPIMAT 100-20MCG INHALER 4GM INH SCH ×3 (07:16→17:27)
[2021-08-09] MEDS: RIVAROXABAN 2.5 MG PO SCH ×2 (08:00→17:55)
[2021-08-09] MEDS: HumaLOG INSULIN (NovoLOG) PER UNIT SC SCH ×4 (08:11→20:58)
[2021-08-09] MEDS: LEVEMIR (INSULIN DETEMIR) 1 UNITS/0.01ML SC SCH (08:12)
[2021-08-09] MEDS: BACLOFEN 10 MG TAB PO SCH (08:14)
[2021-08-09] MEDS: DOCUSATE SODIUM 100MG CAPSULE PO SCH ×3 (08:14→21:32)
[2021-08-09] MEDS: PANTOPRAZOLE 40MG TAB (PROTONIX) PO SCH (08:14)
[2021-08-09] MEDS: BISACODYL 5 MG TAB PO SCH (08:14)
[2021-08-09] MEDS: predniSONE 10 MG TAB PO SCH (08:14)
[2021-08-09] MEDS: OYSTER SHELL CALCIUM 500 MG TAB PO SCH (08:14)
[2021-08-09] MEDS: LACTOBACILLUS ACIDOPHILUS CAP (BACID) PO SCH ×2 (08:14→17:47)
[2021-08-09] MEDS: FERROUS SULFATE 325MG TAB PO SCH ×2 (08:14→21:32)
[2021-08-09] MEDS: ATORVASTATIN 20 MG TAB PO SCH (08:15)
[2021-08-09] MEDS: oxyBUTYnin 5 MG TAB PO SCH ×2 (08:15→21:32)
[2021-08-09] MEDS: ASCORBIC ACID 500 MG TAB PO SCH (08:15)
[2021-08-09] MEDS: FLUTICASONE PROP 0.05% NASAL SPRAY 16 GM (FLONASE) NARES SCH ×2 (08:18→21:32)
[2021-08-09] MEDS: REMEDY PHYTOPLEX Z-GUARD PASTE 113GM TUBE (FROM STOREROOM PRODUCT) TOP SCH ×3 (08:19→21:31)
[2021-08-09] MEDS: POLYVINYL ALCOHOL OPHTH SOLN 15 ML(LIQUITEARS) OU SCH ×3 (08:19→21:32)
[2021-08-09] MEDS ORDERED: BISACODYL 5 MG TAB PO ONE (10:50)
[2021-08-09 14:00] VITALS: BP 126/62
[2021-08-09] MEDS ORDERED: FLEET ENEMA PR PRN (16:35)
[2021-08-09] MEDS: BISACODYL 10 MG SUPP PR SCH (18:18)
[2021-08-09 20:00] VITALS: BP 134/74
[2021-08-09] MEDS ORDERED: FOSFOMYCIN TROMETHAMINE 3 GM POWDER PACKET (MONUROL) PO ONE (20:30)
[2021-08-09] MEDS: RAMELTEON 8 MG TAB (ROZEREM) PO PRN (21:32)
[2021-08-09] MEDS: ASPIRIN 81MG ENTERIC TABLET PO SCH (21:32)
[2021-08-09] MEDS: ACETAMINOPHEN TAB 650MG DOSE (2X325MG) PO PRN (21:32)
[2021-08-10 06:00] VITALS: BP 127/73
[2021-08-10] MEDS: COMBIVENT RESPIMAT 100-20MCG INHALER 4GM INH SCH ×3 (07:10→17:14)
[2021-08-10] MEDS: MIRALAX *UNIT DOSE* 17GM PACKET PO SCH (07:38)
[2021-08-10] MEDS: LEVEMIR (INSULIN DETEMIR) 1 UNITS/0.01ML SC SCH (07:39)
[2021-08-10] MEDS: HumaLOG INSULIN (NovoLOG) PER UNIT SC SCH ×4 (07:39→21:47)
[2021-08-10] MEDS: DOCUSATE SODIUM 100MG CAPSULE PO SCH ×3 (07:41→21:47)
[2021-08-10] MEDS: BISACODYL 5 MG TAB PO SCH (07:42)
[2021-08-10] MEDS: LACTOBACILLUS ACIDOPHILUS CAP (BACID) PO SCH ×2 (07:42→18:00)
[2021-08-10] MEDS: PANTOPRAZOLE 40MG TAB (PROTONIX) PO SCH (07:43)
[2021-08-10] MEDS: oxyBUTYnin 5 MG TAB PO SCH ×2 (07:43→21:46)
[2021-08-10] MEDS: predniSONE 10 MG TAB PO SCH (07:43)
[2021-08-10] MEDS: FERROUS SULFATE 325MG TAB PO SCH ×2 (07:43→21:46)
[2021-08-10] MEDS: ASCORBIC ACID 500 MG TAB PO SCH (07:44)
[2021-08-10] MEDS: RIVAROXABAN 2.5 MG PO SCH ×2 (07:44→18:00)
[2021-08-10] MEDS: BACLOFEN 10 MG TAB PO SCH (07:44)
[2021-08-10] MEDS: OYSTER SHELL CALCIUM 500 MG TAB PO SCH (07:44)
[2021-08-10] MEDS: REMEDY PHYTOPLEX Z-GUARD PASTE 113GM TUBE (FROM STOREROOM PRODUCT) TOP SCH ×3 (07:48→21:00)
[2021-08-10] MEDS: POLYVINYL ALCOHOL OPHTH SOLN 15 ML(LIQUITEARS) OU SCH ×3 (07:49→21:48)
[2021-08-10] MEDS: FLUTICASONE PROP 0.05% NASAL SPRAY 16 GM (FLONASE) NARES SCH ×2 (07:49→21:47)
[2021-08-10 09:27] LABS: BASO % 0.4 % (0.0-1.0); EOS # 0.1 10^3/uL (0.0-0.5); EOS % 1.6 % (0.0-3.0); HEMATOCRIT 32.5 % (42.0-52.0); HEMOGLOBIN 9.8 g/dl (13.5-17.5); LYMPH # 1.8 10^3/uL (1.5-5.0); LYMPH % 24.9 % (24.0-44.0); MEAN CORPUSCULAR HEMOGLOBIN 24.7 pg (27.0-33.0); MEAN CORPUSCULAR HGB CONC 30.2 g/dl (32.0-36.5); MEAN CORPUSCULAR VOLUME 81.9 fl (80.0-96.0); MONO # 0.4 10^3/uL (0.0-0.8); MONO % 6.1 % (2.0-8.0); NEUTROPHILS # 4.7 10^3/uL (1.5-8.5); NEUTROPHILS % 66.4 % (36.0-66.0); PLATELET COUNT, AUTOMATED 355 10^3/uL (150-450); RED BLOOD COUNT 3.97 10^6/uL (4.30-6.10)
[2021-08-10 09:50] LABS: BLOOD UREA NITROGEN 32 MG/DL (7-18); CALCIUM LEVEL 8.8 MG/DL (8.8-10.2); CARBON DIOXIDE LEVEL 25 MEQ/L (21-32); CHLORIDE LEVEL 106 MEQ/L (98-107); CREATININE FOR GFR 1.21 MG/DL (0.70-1.30); GLOMERULAR FILTRATION RATE > 60.0 (>42); GLUCOSE, FASTING 135 MG/DL (70-100); POTASSIUM SERUM 3.7 MEQ/L (3.5-5.1); SODIUM LEVEL 138 MEQ/L (136-145)
[2021-08-10 14:00] VITALS: BP 123/73
[2021-08-10] MEDS: BISACODYL 10 MG SUPP PR SCH ×2 (18:00→18:51)
[2021-08-10 20:09] VITALS: BP 136/74
[2021-08-10] MEDS: ASPIRIN 81MG ENTERIC TABLET PO SCH (21:46)
[2021-08-11 05:36] VITALS: BP 143/78
[2021-08-11] MEDS: COMBIVENT RESPIMAT 100-20MCG INHALER 4GM INH SCH ×3 (07:21→20:41)
[2021-08-11] MEDS: RIVAROXABAN 2.5 MG PO SCH ×2 (08:39→17:05)
[2021-08-11] MEDS: LACTOBACILLUS ACIDOPHILUS CAP (BACID) PO SCH ×2 (08:39→17:05)
[2021-08-11] MEDS: predniSONE 20 MG TAB PO SCH (08:40)
[2021-08-11] MEDS: oxyBUTYnin 5 MG TAB PO SCH ×2 (08:40→21:11)
[2021-08-11] MEDS: DOCUSATE SODIUM 100MG CAPSULE PO SCH ×3 (08:40→21:11)
[2021-08-11] MEDS: ASCORBIC ACID 500 MG TAB PO SCH (08:41)
[2021-08-11] MEDS: MIRALAX *UNIT DOSE* 17GM PACKET PO SCH (08:41)
[2021-08-11] MEDS: PANTOPRAZOLE 40MG TAB (PROTONIX) PO SCH (08:41)
[2021-08-11] MEDS: BACLOFEN 10 MG TAB PO SCH (08:41)
[2021-08-11] MEDS: OYSTER SHELL CALCIUM 500 MG TAB PO SCH (08:41)
[2021-08-11] MEDS: FERROUS SULFATE 325MG TAB PO SCH ×2 (08:41→21:11)
[2021-08-11] MEDS: BISACODYL 5 MG TAB PO SCH (08:41)
[2021-08-11] MEDS: LEVEMIR (INSULIN DETEMIR) 1 UNITS/0.01ML SC SCH (08:42)
[2021-08-11] MEDS: HumaLOG INSULIN (NovoLOG) PER UNIT SC SCH ×4 (08:43→21:00)
[2021-08-11] MEDS: POLYVINYL ALCOHOL OPHTH SOLN 15 ML(LIQUITEARS) OU SCH ×3 (08:44→21:12)
[2021-08-11] MEDS: FLUTICASONE PROP 0.05% NASAL SPRAY 16 GM (FLONASE) NARES SCH ×2 (08:44→21:12)
[2021-08-11] MEDS: REMEDY PHYTOPLEX Z-GUARD PASTE 113GM TUBE (FROM STOREROOM PRODUCT) TOP SCH ×3 (09:00→21:13)
[2021-08-11 14:00] VITALS: BP 137/64
[2021-08-11] MEDS: BISACODYL 10 MG SUPP PR SCH (18:22)
[2021-08-11 20:00] VITALS: BP 134/83
[2021-08-11] MEDS: ASPIRIN 81MG ENTERIC TABLET PO SCH (21:11)
[2021-08-12 06:00] VITALS: BP 123/72
[2021-08-12] MEDS: COMBIVENT RESPIMAT 100-20MCG INHALER 4GM INH SCH ×3 (07:16→20:00)
[2021-08-12] MEDS: RIVAROXABAN 2.5 MG PO SCH ×2 (08:00→17:26)
[2021-08-12] MEDS: MIRALAX *UNIT DOSE* 17GM PACKET PO SCH (09:01)
[2021-08-12] MEDS: LEVEMIR (INSULIN DETEMIR) 1 UNITS/0.01ML SC SCH (09:02)
[2021-08-12] MEDS: HumaLOG INSULIN (NovoLOG) PER UNIT SC SCH ×4 (09:02→20:58)
[2021-08-12] MEDS: ATORVASTATIN 20 MG TAB PO SCH (09:03)
[2021-08-12] MEDS: PANTOPRAZOLE 40MG TAB (PROTONIX) PO SCH (09:03)
[2021-08-12] MEDS: predniSONE 20 MG TAB PO SCH (09:04)
[2021-08-12] MEDS: LACTOBACILLUS ACIDOPHILUS CAP (BACID) PO SCH ×2 (09:04→17:26)
[2021-08-12] MEDS: BISACODYL 5 MG TAB PO SCH (09:04)
[2021-08-12] MEDS: DOCUSATE SODIUM 100MG CAPSULE PO SCH ×3 (09:04→20:58)
[2021-08-12] MEDS: BACLOFEN 10 MG TAB PO SCH (09:05)
[2021-08-12] MEDS: ASCORBIC ACID 500 MG TAB PO SCH (09:05)
[2021-08-12] MEDS: FERROUS SULFATE 325MG TAB PO SCH (09:05)
[2021-08-12] MEDS: oxyBUTYnin 5 MG TAB PO SCH ×2 (09:05→20:58)
[2021-08-12] MEDS: OYSTER SHELL CALCIUM 500 MG TAB PO SCH (09:05)
[2021-08-12] MEDS: FLUTICASONE PROP 0.05% NASAL SPRAY 16 GM (FLONASE) NARES SCH ×2 (09:06→21:00)
[2021-08-12] MEDS: POLYVINYL ALCOHOL OPHTH SOLN 15 ML(LIQUITEARS) OU SCH ×3 (09:06→21:04)
[2021-08-12] MEDS: REMEDY PHYTOPLEX Z-GUARD PASTE 113GM TUBE (FROM STOREROOM PRODUCT) TOP SCH ×3 (09:06→21:00)
[2021-08-12] MEDS ORDERED: IRON SUCROSE 100MG 5ML VIAL (J1756 PER 1MG) IV ONE (11:50)
[2021-08-12 14:00] VITALS: BP 141/78
[2021-08-12] MEDS ORDERED: IRON SUCROSE 200 MG in NS 100 ML OVER 1 HR IV ONE (15:00)
[2021-08-12] MEDS: BISACODYL 10 MG SUPP PR SCH (18:29)
[2021-08-12 20:00] VITALS: BP 128/79
[2021-08-12] MEDS: RAMELTEON 8 MG TAB (ROZEREM) PO PRN (20:57)
[2021-08-12] MEDS: ASPIRIN 81MG ENTERIC TABLET PO SCH (20:58)
[2021-08-13 06:00] VITALS: BP 131/71
[2021-08-13] MEDS: HumaLOG INSULIN (NovoLOG) PER UNIT SC SCH ×4 (07:30→20:46)
[2021-08-13] MEDS: COMBIVENT RESPIMAT 100-20MCG INHALER 4GM INH SCH ×3 (07:38→20:00)
[2021-08-13] MEDS: LEVEMIR (INSULIN DETEMIR) 1 UNITS/0.01ML SC SCH (08:20)
[2021-08-13] MEDS: MIRALAX *UNIT DOSE* 17GM PACKET PO SCH (09:00)
[2021-08-13] MEDS: DOCUSATE SODIUM 100MG CAPSULE PO SCH ×3 (09:00→20:47)
[2021-08-13] MEDS: BISACODYL 5 MG TAB PO SCH (09:00)
[2021-08-13] MEDS: OYSTER SHELL CALCIUM 500 MG TAB PO SCH (09:05)
[2021-08-13] MEDS: ATORVASTATIN 20 MG TAB PO SCH (09:05)
[2021-08-13] MEDS: oxyBUTYnin 5 MG TAB PO SCH ×2 (09:06→20:46)
[2021-08-13] MEDS: LACTOBACILLUS ACIDOPHILUS CAP (BACID) PO SCH ×2 (09:06→17:57)
[2021-08-13] MEDS: predniSONE 20 MG TAB PO SCH (09:06)
[2021-08-13] MEDS: ASCORBIC ACID 500 MG TAB PO SCH (09:06)
[2021-08-13] MEDS: PANTOPRAZOLE 40MG TAB (PROTONIX) PO SCH (09:06)
[2021-08-13] MEDS: BACLOFEN 10 MG TAB PO SCH (09:06)
[2021-08-13] MEDS: RIVAROXABAN 2.5 MG PO SCH ×2 (09:07→17:57)
[2021-08-13] MEDS: REMEDY PHYTOPLEX Z-GUARD PASTE 113GM TUBE (FROM STOREROOM PRODUCT) TOP SCH ×3 (09:10→20:45)
[2021-08-13] MEDS: POLYVINYL ALCOHOL OPHTH SOLN 15 ML(LIQUITEARS) OU SCH ×3 (09:10→20:45)
[2021-08-13] MEDS: FLUTICASONE PROP 0.05% NASAL SPRAY 16 GM (FLONASE) NARES SCH ×2 (09:10→20:45)
[2021-08-13 10:32] LABS: BASO % 0.3 % (0.0-1.0); EOS # 0.1 10^3/uL (0.0-0.5); EOS % 1.1 % (0.0-3.0); HEMATOCRIT 35.6 % (42.0-52.0); HEMOGLOBIN 10.6 g/dl (13.5-17.5); LYMPH # 1.6 10^3/uL (1.5-5.0); LYMPH % 21.7 % (24.0-44.0); MEAN CORPUSCULAR HEMOGLOBIN 24.8 pg (27.0-33.0); MEAN CORPUSCULAR HGB CONC 29.8 g/dl (32.0-36.5); MEAN CORPUSCULAR VOLUME 83.2 fl (80.0-96.0); MONO # 0.6 10^3/uL (0.0-0.8); NEUTROPHILS # 4.9 10^3/uL (1.5-8.5); NEUTROPHILS % 68.2 % (36.0-66.0); PLATELET COUNT, AUTOMATED 349 10^3/uL (150-450); RED BLOOD COUNT 4.28 10^6/uL (4.30-6.10); WHITE BLOOD COUNT 7.1 10^3/uL (4.0-10.0)
[2021-08-13 10:54] LABS: CALCIUM LEVEL 8.6 MG/DL (8.8-10.2); CREATININE FOR GFR 1.28 MG/DL (0.70-1.30); GLOMERULAR FILTRATION RATE 57.9 (>42); POTASSIUM SERUM 3.7 MEQ/L (3.5-5.1)
[2021-08-13 14:00] VITALS: BP 124/79
[2021-08-13] MEDS: BISACODYL 10 MG SUPP PR SCH (17:58)
[2021-08-13 20:00] VITALS: BP 124/70
[2021-08-13] MEDS: ASPIRIN 81MG ENTERIC TABLET PO SCH (20:46)
[2021-08-13] MEDS: RAMELTEON 8 MG TAB (ROZEREM) PO PRN (20:46)
[2021-08-13] MEDS: ACETAMINOPHEN TAB 650MG DOSE (2X325MG) PO PRN (20:47)
[2021-08-14 06:00] VITALS: BP 128/72
[2021-08-14] MEDS: COMBIVENT RESPIMAT 100-20MCG INHALER 4GM INH SCH (08:10)
[2021-08-14] MEDS: LACTOBACILLUS ACIDOPHILUS CAP (BACID) PO SCH (08:32)
[2021-08-14] MEDS: OYSTER SHELL CALCIUM 500 MG TAB PO SCH (08:32)
[2021-08-14] MEDS: predniSONE 20 MG TAB PO SCH (08:32)
[2021-08-14] MEDS: oxyBUTYnin 5 MG TAB PO SCH (08:32)
[2021-08-14] MEDS: PANTOPRAZOLE 40MG TAB (PROTONIX) PO SCH (08:32)
[2021-08-14] MEDS: ASCORBIC ACID 500 MG TAB PO SCH (08:32)
[2021-08-14] MEDS: RIVAROXABAN 2.5 MG PO SCH (08:33)
[2021-08-14] MEDS: BACLOFEN 10 MG TAB PO SCH (08:33)
[2021-08-14] MEDS: BISACODYL 5 MG TAB PO SCH (08:33)
[2021-08-14] MEDS: MIRALAX *UNIT DOSE* 17GM PACKET PO SCH (08:33)
[2021-08-14] MEDS: DOCUSATE SODIUM 100MG CAPSULE PO SCH (08:33)
[2021-08-14] MEDS: HumaLOG INSULIN (NovoLOG) PER UNIT SC SCH (08:34)
[2021-08-14] MEDS: LEVEMIR (INSULIN DETEMIR) 1 UNITS/0.01ML SC SCH (08:34)
[2021-08-14] MEDS: REMEDY PHYTOPLEX Z-GUARD PASTE 113GM TUBE (FROM STOREROOM PRODUCT) TOP SCH (08:35)
[2021-08-14] MEDS: POLYVINYL ALCOHOL OPHTH SOLN 15 ML(LIQUITEARS) OU SCH (08:35)
[2021-08-14] MEDS: FLUTICASONE PROP 0.05% NASAL SPRAY 16 GM (FLONASE) NARES SCH (08:35)
[2021-08-14] MEDS ORDERED: DOCU100C16 PO (09:18)
== END 2021-08-14 11:45 | disposition home health service (06) | DRG 59 ==
LOC: M PM&R 15:08
PROVIDERS: ADMIT Physical Medicine & Rehabilitation; ATTEND Physical Medicine & Rehabilitation
DX: G35 Multiple sclerosis (principal); I50.32 Chronic diastolic (congestive) heart failure; N39.0 Urinary tract infection, site not specified; E11.9 Type 2 diabetes mellitus without complications; R33.9 Retention of urine, unspecified; N31.9 Neuromuscular dysfunction of bladder, unspecified; G47.33 Obstructive sleep apnea (adult) (pediatric); I11.0 Hypertensive heart disease with heart failure; I25.2 Old myocardial infarction; Z95.1 Presence of aortocoronary bypass graft; I71.4 Abdominal aortic aneurysm, without rupture; K76.89 Other specified diseases of liver; Z74.09 Other reduced mobility; Z74.1 Need for assistance with personal care; R53.1 Weakness; D64.9 Anemia, unspecified; Z86.718 Personal history of other venous thrombosis and embolism; Z79.01 Long term (current) use of anticoagulants; Z79.82 Long term (current) use of aspirin; Z79.84 Long term (current) use of oral hypoglycemic drugs; Z88.8 Allergy status to other drugs, medicaments and biological substances; Z87.891 Personal history of nicotine dependence; E78.5 Hyperlipidemia, unspecified

== ENCOUNTER → 2021-09-28 | Outpatient (CLI) | payer MEDICARE ==
[~2021-09-28] MED LIST changes: +BENA25CA4 PO; -D31000TA2 PO; +FOSF3PAC2 PO; +TRIA1CR80 TOP; +VITA100093 PO
[2021-09-28 09:30] LABS: HEMATOCRIT 37.5 % (42.0-52.0); HEMOGLOBIN 11.4 g/dl (13.5-17.5); MEAN CORPUSCULAR HEMOGLOBIN 24.1 pg (27.0-33.0); MEAN CORPUSCULAR HGB CONC 30.4 g/dl (32.0-36.5); MEAN CORPUSCULAR VOLUME 79.3 fl (80.0-96.0); PLATELET COUNT, AUTOMATED 283 10^3/uL (150-450); RED BLOOD COUNT 4.73 10^6/uL (4.30-6.10); WHITE BLOOD COUNT 4.8 10^3/uL (4.0-10.0)
[2021-09-28 10:05] LABS: ALBUMIN 3.7 GM/DL (3.2-5.2); ALT/SGPT 59 U/L (12-78); BILIRUBIN,TOTAL 0.5 MG/DL (0.2-1.0); BLOOD UREA NITROGEN 23 MG/DL (7-18); CALCIUM LEVEL 9.3 MG/DL (8.8-10.2); CARBON DIOXIDE LEVEL 29 MEQ/L (21-32); CHLORIDE LEVEL 103 MEQ/L (98-107); CREATININE FOR GFR 1.06 MG/DL (0.70-1.30); FERRITIN 64 NG/ML (26-388); GLOMERULAR FILTRATION RATE > 60.0 (>42); GLUCOSE, FASTING 138 MG/DL (70-100); IRON (FE) 21 UG/DL (65-175); PERCENT SATURATION 5.9 % (19.7-50.0); POTASSIUM SERUM 4.1 MEQ/L (3.5-5.1); SODIUM LEVEL 138 MEQ/L (136-145); TOTAL IRON BINDING CAPACITY 358 UG/DL (250-450); TOTAL PROTEIN 7.5 GM/DL (6.4-8.2)
[2021-09-28 10:27] LABS: HEMOGLOBIN A1c 8.2 %
== END ==
LOC: M WUC 08:12
PROVIDERS: ATTEND Family Medicine
DX: J67.9 Hypersensitivity pneumonitis due to unspecified organic dust (principal); E11.9 Type 2 diabetes mellitus without complications; D50.0 Iron deficiency anemia secondary to blood loss (chronic)

== ENCOUNTER → 2021-09-28 | Outpatient (CLI) | payer MEDICARE ==
[~2021-09-28] MED LIST changes: -BENA25CA4 PO; -FOSF3PAC2 PO; -TRIA1CR80 TOP
== END ==
LOC: M WUC 08:23
PROVIDERS: ATTEND Family Medicine
DX: J67.9 Hypersensitivity pneumonitis due to unspecified organic dust (principal); R91.8 Other nonspecific abnormal finding of lung field

== ENCOUNTER 2021-10-06 15:33 | Emergency (ER) | payer MEDICARE, OTHER ==
[~2021-10-06] VITALS: Ht 175.3 cm; Wt 84.1 kg
[2021-10-06 16:50] LABS: BASO % 0.4 % (0.0-1.0); EOS # 0.1 10^3/uL (0.0-0.5); EOS % 2.3 % (0.0-3.0); HEMATOCRIT 36.8 % (42.0-52.0); HEMOGLOBIN 11.3 g/dl (13.5-17.5); LYMPH % 16.7 % (24.0-44.0); MEAN CORPUSCULAR HEMOGLOBIN 23.8 pg (27.0-33.0); MEAN CORPUSCULAR HGB CONC 30.7 g/dl (32.0-36.5); MEAN CORPUSCULAR VOLUME 77.5 fl (80.0-96.0); MONO # 0.4 10^3/uL (0.0-0.8); NEUTROPHILS # 4.2 10^3/uL (1.5-8.5); NEUTROPHILS % 73.4 % (36.0-66.0); PLATELET COUNT, AUTOMATED 255 10^3/uL (150-450); RED BLOOD COUNT 4.75 10^6/uL (4.30-6.10); WHITE BLOOD COUNT 5.7 10^3/uL (4.0-10.0)
[2021-10-06 16:51] LABS: APPEARANCE, URINE CLOUDY (CLEAR); BACTERIA, URINE AUTO 1+ (NEGATIVE); BILIRUBIN, URINE AUTO NEGATIVE (NEGATIVE); BLOOD, URINE BLOOD 3+ (NEGATIVE); COLOR, URINE AMBER (YELLOW); GLUCOSE, URINE (UA) AUTO NEGATIVE (NEGATIVE); KETONE, URINE AUTO NEGATIVE (NEGATIVE); LEUKOCYTE ESTERASE, URINE AUTO 1+ (NEGATIVE); NITRITE, URINE AUTO POSITIVE (NEGATIVE); PROTEIN, URINE AUTO 2+ mg/dL (NEGATIVE); RBC, URINE AUTO TNTC /HPF (0-3); SPECIFIC GRAVITY URINE AUTO 1.016 (1.002-1.035); SQUAMOUS EPITHELIAL CELL UR AU 0 /HPF (0-6); WBC, URINE AUTO TNTC /HPF (0-3)
[2021-10-06 17:11] LABS: BLOOD UREA NITROGEN 20 MG/DL (7-18); CALCIUM LEVEL 9.4 MG/DL (8.8-10.2); CARBON DIOXIDE LEVEL 30 MEQ/L (21-32); CHLORIDE LEVEL 105 MEQ/L (98-107); CREATININE FOR GFR 1.15 MG/DL (0.70-1.30); GLOMERULAR FILTRATION RATE > 60.0 (>42); GLUCOSE, FASTING 126 MG/DL (70-100); POTASSIUM SERUM 4.2 MEQ/L (3.5-5.1); SODIUM LEVEL 138 MEQ/L (136-145)
[2021-10-06] MEDS ORDERED: METO1TAB87 PO (18:47)
[2021-10-06] MEDS ORDERED: FOSF3PAC2 PO (18:47)
[2021-10-06] MEDS ORDERED: FLUC150T9 PO (18:47)
[2021-10-06] MEDS ORDERED: DOCU100C16 PO (18:47)
[2021-10-06] MEDS ORDERED: HOME MED LIST COMPLETE! XX SCH (18:50)
[2021-10-06] MEDS ORDERED: TRIA1CR80 TOP ×2 (20:43→20:45)
[2021-10-06] MEDS ORDERED: BENA25CA4 PO (20:43)
[2021-10-06 21:15] VITALS: BP 156/90
[2021-10-09] MEDS ORDERED: LEVO500T4 PO (11:39)
== END 2021-10-06 21:48 | disposition home or self-care (01) ==
LOC: M ED 15:33
DX: R21 Rash and other nonspecific skin eruption (principal); R31.9 Hematuria, unspecified; T45.515A Adverse effect of anticoagulants, initial encounter; Y92.89 Other specified places as the place of occurrence of the external cause; E11.9 Type 2 diabetes mellitus without complications; I10 Essential (primary) hypertension; E78.5 Hyperlipidemia, unspecified; I25.2 Old myocardial infarction; I25.10 Atherosclerotic heart disease of native coronary artery without angina pectoris; G47.33 Obstructive sleep apnea (adult) (pediatric); Z86.14 Personal history of Methicillin resistant Staphylococcus aureus infection; Z88.8 Allergy status to other drugs, medicaments and biological substances; Z79.899 Other long term (current) drug therapy; Z79.84 Long term (current) use of oral hypoglycemic drugs; Z79.82 Long term (current) use of aspirin; Z79.01 Long term (current) use of anticoagulants

== ENCOUNTER 2021-10-14 20:47 | Inpatient (IN) | payer MEDICARE, OTHER ==
[~2021-10-14] VITALS: Ht 175.3 cm; Wt 88.0 kg
[~2021-10-14 20:47] MED LIST changes: +BENA25CA4 PO; +FOSF3PAC2 PO; +TRIA1CR80 TOP
[2021-10-14 22:13] LABS: BASO % 0.4 % (0.0-1.0); EOS # 0.1 10^3/uL (0.0-0.5); EOS % 2.2 % (0.0-3.0); HEMATOCRIT 32.4 % (42.0-52.0); HEMOGLOBIN 10.1 g/dl (13.5-17.5); LYMPH # 0.9 10^3/uL (1.5-5.0); LYMPH % 18.6 % (24.0-44.0); MEAN CORPUSCULAR HEMOGLOBIN 24.1 pg (27.0-33.0); MEAN CORPUSCULAR HGB CONC 31.2 g/dl (32.0-36.5); MEAN CORPUSCULAR VOLUME 77.3 fl (80.0-96.0); MONO # 0.6 10^3/uL (0.0-0.8); MONO % 11.1 % (2.0-8.0); NEUTROPHILS # 3.4 10^3/uL (1.5-8.5); NEUTROPHILS % 67.5 % (36.0-66.0); PLATELET COUNT, AUTOMATED 220 10^3/uL (150-450); RED BLOOD COUNT 4.19 10^6/uL (4.30-6.10); WHITE BLOOD COUNT 5.1 10^3/uL (4.0-10.0)
[2021-10-14 22:23] LABS: INR 1.07; PROTHROMBIN TIME 14.3 SECONDS (12.7-14.5)
[2021-10-14 22:24] LABS: PARTIAL THROMBOPLASTIN TIME 36.7 SECONDS (25.9-37.0)
[2021-10-14] MEDS ORDERED: PIPERACILLIN/TAZOBACTAM SOD 3.375 GM in D5W MINI-BAG PLUS 50 ML IV ONE (22:45)
[2021-10-14 22:55] LABS: ALBUMIN 3.2 GM/DL (3.2-5.2); ALT/SGPT 51 U/L (12-78); BILIRUBIN,DIRECT < 0.1 MG/DL (0.0-0.2); BILIRUBIN,TOTAL 0.3 MG/DL (0.2-1.0); BLOOD UREA NITROGEN 24 MG/DL (7-18); CARBON DIOXIDE LEVEL 28 MEQ/L (21-32); CHLORIDE LEVEL 104 MEQ/L (98-107); CREATININE FOR GFR 0.85 MG/DL (0.70-1.30); GLOMERULAR FILTRATION RATE > 60.0 (>42); GLUCOSE, FASTING 82 MG/DL (70-100); LIPASE 74 U/L (73-393); POTASSIUM SERUM 4.6 MEQ/L (3.5-5.1); SODIUM LEVEL 137 MEQ/L (136-145); TOTAL PROTEIN 7.1 GM/DL (6.4-8.2)
[2021-10-14] MEDS ORDERED: BACL10TA2 PO (23:30)
[2021-10-14] MEDS ORDERED: LEVO500T4 PO (23:30)
[2021-10-14] MEDS ORDERED: HOME MED LIST COMPLETE! XX SCH (23:35)
[2021-10-15] MEDS ORDERED: ALBUTEROL 90 MCG/ACT 8GM HFA INHALER INH PRN (00:05)
[2021-10-15] MEDS ORDERED: ACETAMINOPHEN TAB 650MG DOSE (2X325MG) PO PRN (00:05)
[2021-10-15] MEDS ORDERED: BACLOFEN 10 MG TAB PO PRN (00:05)
[2021-10-15] MEDS ORDERED: MAALOX 30 ML SUSP *UDC PO PRN (00:05)
[2021-10-15] MEDS ORDERED: DEXTROSE 50% 50 ML SYRINGE IV PRN (00:10)
[2021-10-15] MEDS ORDERED: GLUCOSE 4GM CHEW TABLET PO PRN (00:10)
[2021-10-15] MEDS ORDERED: GLUCAGON INJ 1MG VIAL SC PRN (00:10)
[2021-10-15 01:50] VITALS: BP 115/63
[2021-10-15 03:46] VITALS: BP 156/78
[2021-10-15] MEDS: PIPERACILLIN/TAZOBACTAM SOD 3.375 GM in D5W MINI-BAG PLUS 50 ML IV SCH ×4 (04:00→22:10)
[2021-10-15 05:51] LABS: HEMATOCRIT 30.8 % (42.0-52.0); HEMOGLOBIN 9.5 g/dl (13.5-17.5); MEAN CORPUSCULAR HEMOGLOBIN 23.8 pg (27.0-33.0); MEAN CORPUSCULAR HGB CONC 30.8 g/dl (32.0-36.5); MEAN CORPUSCULAR VOLUME 77.2 fl (80.0-96.0); PLATELET COUNT, AUTOMATED 207 10^3/uL (150-450); RED BLOOD COUNT 3.99 10^6/uL (4.30-6.10); WHITE BLOOD COUNT 6.6 10^3/uL (4.0-10.0)
[2021-10-15 06:15] LABS: BLOOD UREA NITROGEN 23 MG/DL (7-18); CALCIUM LEVEL 8.9 MG/DL (8.8-10.2); CARBON DIOXIDE LEVEL 30 MEQ/L (21-32); CHLORIDE LEVEL 104 MEQ/L (98-107); CREATININE FOR GFR 1.07 MG/DL (0.70-1.30); GLOMERULAR FILTRATION RATE > 60.0 (>42); GLUCOSE, FASTING 105 MG/DL (70-100); MAGNESIUM LEVEL 1.4 MG/DL (1.8-2.4); SODIUM LEVEL 139 MEQ/L (136-145)
[2021-10-15] MEDS ORDERED: MAG SULF 1GM/100ML (MAG RUN) 1 GM in IV 1 EA IV ONE (06:20)
[2021-10-15 08:09] VITALS: BP 138/84
[2021-10-15] MEDS: FLUTICASONE PROP 0.05% NASAL SPRAY 16 GM (FLONASE) SCH (08:31)
[2021-10-15] MEDS: DOCUSATE SODIUM 100MG CAPSULE PO SCH ×2 (08:32→21:00)
[2021-10-15] MEDS: OMEPRAZOLE 20MG CAP PO SCH (08:32)
[2021-10-15] MEDS: MIRALAX *UNIT DOSE* 17GM PACKET PO SCH (08:32)
[2021-10-15] MEDS: LACTOBACILLUS ACIDOPHILUS CAP (BACID) PO SCH ×2 (08:32→22:00)
[2021-10-15] MEDS: oxyBUTYnin 5 MG TAB PO SCH ×2 (08:33→22:00)
[2021-10-15] MEDS: HumaLOG INSULIN (NovoLOG) PER UNIT SC SCH ×4 (08:33→20:32)
[2021-10-15 12:05] VITALS: BP 131/75
[2021-10-15 16:09] VITALS: BP 157/76
[2021-10-15 20:00] VITALS: BP 140/77
[2021-10-15] MEDS: ASPIRIN 81MG ENTERIC TABLET PO SCH (20:33)
[2021-10-15] MEDS: BACLOFEN 10 MG TAB PO SCH (22:11)
[2021-10-16] VITALS: BP 139/73
[2021-10-16 04:00] VITALS: BP 120/65
[2021-10-16] MEDS: PIPERACILLIN/TAZOBACTAM SOD 3.375 GM in D5W MINI-BAG PLUS 50 ML IV SCH ×4 (04:19→23:11)
[2021-10-16 05:35] LABS: HEMATOCRIT 30.2 % (42.0-52.0); HEMOGLOBIN 9.4 g/dl (13.5-17.5); MEAN CORPUSCULAR HEMOGLOBIN 24.1 pg (27.0-33.0); MEAN CORPUSCULAR HGB CONC 31.1 g/dl (32.0-36.5); MEAN CORPUSCULAR VOLUME 77.4 fl (80.0-96.0); PLATELET COUNT, AUTOMATED 213 10^3/uL (150-450); WHITE BLOOD COUNT 4.5 10^3/uL (4.0-10.0)
[2021-10-16 05:54] LABS: CALCIUM LEVEL 8.7 MG/DL (8.8-10.2); CREATININE FOR GFR 1.28 MG/DL (0.70-1.30); GLOMERULAR FILTRATION RATE 57.9 (>42); MAGNESIUM LEVEL 1.7 MG/DL (1.8-2.4)
[2021-10-16] MEDS ORDERED: MAG SULF 1GM/100ML (MAG RUN) 1 GM in IV 1 EA IV ONE (07:00)
[2021-10-16] MEDS: DOCUSATE SODIUM 100MG CAPSULE PO SCH ×2 (08:05→20:27)
[2021-10-16] MEDS: MIRALAX *UNIT DOSE* 17GM PACKET PO SCH (08:05)
[2021-10-16] MEDS: OMEPRAZOLE 20MG CAP PO SCH (08:05)
[2021-10-16] MEDS: LACTOBACILLUS ACIDOPHILUS CAP (BACID) PO SCH ×2 (08:05→20:28)
[2021-10-16] MEDS: oxyBUTYnin 5 MG TAB PO SCH ×2 (08:06→20:28)
[2021-10-16] MEDS: HumaLOG INSULIN (NovoLOG) PER UNIT SC SCH ×4 (08:06→20:28)
[2021-10-16] MEDS: FLUTICASONE PROP 0.05% NASAL SPRAY 16 GM (FLONASE) SCH (08:07)
[2021-10-16 08:20] VITALS: BP 137/76
[2021-10-16 11:53] VITALS: BP 141/78
[2021-10-16 16:00] VITALS: BP 143/70
[2021-10-16 20:00] VITALS: BP 140/90
[2021-10-16] MEDS: BACLOFEN 10 MG TAB PO SCH (20:28)
[2021-10-16] MEDS: ASPIRIN 81MG ENTERIC TABLET PO SCH (20:28)
[2021-10-17] VITALS (7 sets, daily range): BP systolic 138–174; BP diastolic 77–96
[2021-10-17] MEDS: PIPERACILLIN/TAZOBACTAM SOD 3.375 GM in D5W MINI-BAG PLUS 50 ML IV SCH ×2 (04:11→11:49)
[2021-10-17 05:04] LABS: HEMATOCRIT 30.5 % (42.0-52.0); HEMOGLOBIN 9.6 g/dl (13.5-17.5); MEAN CORPUSCULAR HEMOGLOBIN 24.2 pg (27.0-33.0); MEAN CORPUSCULAR HGB CONC 31.5 g/dl (32.0-36.5); MEAN CORPUSCULAR VOLUME 76.8 fl (80.0-96.0); PLATELET COUNT, AUTOMATED 217 10^3/uL (150-450); RED BLOOD COUNT 3.97 10^6/uL (4.30-6.10); WHITE BLOOD COUNT 4.2 10^3/uL (4.0-10.0)
[2021-10-17 05:31] LABS: BLOOD UREA NITROGEN 23 MG/DL (7-18); CALCIUM LEVEL 8.7 MG/DL (8.8-10.2); CARBON DIOXIDE LEVEL 30 MEQ/L (21-32); CHLORIDE LEVEL 105 MEQ/L (98-107); CREATININE FOR GFR 1.14 MG/DL (0.70-1.30); GLOMERULAR FILTRATION RATE > 60.0 (>42); GLUCOSE, FASTING 156 MG/DL (70-100); MAGNESIUM LEVEL 1.7 MG/DL (1.8-2.4); POTASSIUM SERUM 3.9 MEQ/L (3.5-5.1); SODIUM LEVEL 139 MEQ/L (136-145)
[2021-10-17] MEDS: RIVAROXABAN 2.5 MG PO SCH ×2 (08:00→18:00)
[2021-10-17] MEDS: MIRALAX *UNIT DOSE* 17GM PACKET PO SCH (08:08)
[2021-10-17] MEDS: LACTOBACILLUS ACIDOPHILUS CAP (BACID) PO SCH ×2 (08:08→21:58)
[2021-10-17] MEDS: DOCUSATE SODIUM 100MG CAPSULE PO SCH ×2 (08:08→21:58)
[2021-10-17] MEDS: OMEPRAZOLE 20MG CAP PO SCH (08:09)
[2021-10-17] MEDS: FLUTICASONE PROP 0.05% NASAL SPRAY 16 GM (FLONASE) SCH (08:09)
[2021-10-17] MEDS: HumaLOG INSULIN (NovoLOG) PER UNIT SC SCH ×4 (08:10→21:00)
[2021-10-17] MEDS: oxyBUTYnin 5 MG TAB PO SCH ×2 (08:10→21:59)
[2021-10-17] MEDS ORDERED: LACTIC ACID 12% LOTION 225 GM BTL TOP PRN (15:35)
[2021-10-17] MEDS ORDERED: FOSF3PAC2 PO (16:17)
[2021-10-17] MEDS ORDERED: RIVAROXABAN 15 MG TAB (XARELTO) PO SCH (18:00)
[2021-10-17] MEDS: ASPIRIN 81MG ENTERIC TABLET PO SCH (21:58)
[2021-10-17] MEDS: BACLOFEN 10 MG TAB PO SCH (21:58)
[2021-10-18 06:00] VITALS: BP 162/87
[2021-10-18 06:33] LABS: HEMATOCRIT 32.1 % (42.0-52.0); HEMOGLOBIN 9.6 g/dl (13.5-17.5); MEAN CORPUSCULAR HEMOGLOBIN 23.2 pg (27.0-33.0); MEAN CORPUSCULAR HGB CONC 29.9 g/dl (32.0-36.5); MEAN CORPUSCULAR VOLUME 77.5 fl (80.0-96.0); PLATELET COUNT, AUTOMATED 214 10^3/uL (150-450); RED BLOOD COUNT 4.14 10^6/uL (4.30-6.10); WHITE BLOOD COUNT 3.9 10^3/uL (4.0-10.0)
[2021-10-18 06:58] LABS: BLOOD UREA NITROGEN 23 MG/DL (7-18); CALCIUM LEVEL 8.9 MG/DL (8.8-10.2); CARBON DIOXIDE LEVEL 30 MEQ/L (21-32); CHLORIDE LEVEL 105 MEQ/L (98-107); CREATININE FOR GFR 1.05 MG/DL (0.70-1.30); GLOMERULAR FILTRATION RATE > 60.0 (>42); GLUCOSE, FASTING 168 MG/DL (70-100); MAGNESIUM LEVEL 1.7 MG/DL (1.8-2.4); POTASSIUM SERUM 4.1 MEQ/L (3.5-5.1); SODIUM LEVEL 139 MEQ/L (136-145)
[2021-10-18] MEDS: RIVAROXABAN 2.5 MG PO SCH ×2 (08:00→16:50)
[2021-10-18] MEDS: oxyBUTYnin 5 MG TAB PO SCH ×2 (08:01→20:51)
[2021-10-18] MEDS: DOCUSATE SODIUM 100MG CAPSULE PO SCH ×2 (08:01→20:50)
[2021-10-18] MEDS: HumaLOG INSULIN (NovoLOG) PER UNIT SC SCH ×4 (08:01→20:10)
[2021-10-18] MEDS: LACTOBACILLUS ACIDOPHILUS CAP (BACID) PO SCH ×2 (08:01→20:50)
[2021-10-18] MEDS: MIRALAX *UNIT DOSE* 17GM PACKET PO SCH (08:01)
[2021-10-18] MEDS: OMEPRAZOLE 20MG CAP PO SCH (08:01)
[2021-10-18] MEDS: FLUTICASONE PROP 0.05% NASAL SPRAY 16 GM (FLONASE) SCH (08:21)
[2021-10-18] MEDS ORDERED: FOSFOMYCIN TROMETHAMINE 3 GM POWDER PACKET (MONUROL) PO SCH (09:00)
[2021-10-18 14:00] VITALS: BP 156/86
[2021-10-18 19:45] VITALS: BP 162/100
[2021-10-18] MEDS: ASPIRIN 81MG ENTERIC TABLET PO SCH (20:50)
[2021-10-18] MEDS: BACLOFEN 10 MG TAB PO SCH (20:51)
[2021-10-18] MEDS: FOSFOMYCIN TROMETHAMINE 3 GM POWDER PACKET (MONUROL) PO SCH (20:51)
[2021-10-19 06:00] VITALS: BP 150/93
[2021-10-19 06:48] LABS: HEMATOCRIT 31.5 % (42.0-52.0); HEMOGLOBIN 9.5 g/dl (13.5-17.5); MEAN CORPUSCULAR HEMOGLOBIN 23.6 pg (27.0-33.0); MEAN CORPUSCULAR HGB CONC 30.2 g/dl (32.0-36.5); MEAN CORPUSCULAR VOLUME 78.4 fl (80.0-96.0); PLATELET COUNT, AUTOMATED 207 10^3/uL (150-450); RED BLOOD COUNT 4.02 10^6/uL (4.30-6.10); WHITE BLOOD COUNT 3.6 10^3/uL (4.0-10.0)
[2021-10-19 07:08] LABS: BLOOD UREA NITROGEN 27 MG/DL (7-18); CALCIUM LEVEL 8.8 MG/DL (8.8-10.2); CARBON DIOXIDE LEVEL 29 MEQ/L (21-32); CHLORIDE LEVEL 105 MEQ/L (98-107); CREATININE FOR GFR 1.03 MG/DL (0.70-1.30); GLOMERULAR FILTRATION RATE > 60.0 (>42); GLUCOSE, FASTING 190 MG/DL (70-100); MAGNESIUM LEVEL 1.5 MG/DL (1.8-2.4); SODIUM LEVEL 140 MEQ/L (136-145)
[2021-10-19] MEDS: oxyBUTYnin 5 MG TAB PO SCH ×2 (08:12→20:49)
[2021-10-19] MEDS: LACTOBACILLUS ACIDOPHILUS CAP (BACID) PO SCH ×2 (08:12→20:49)
[2021-10-19] MEDS: HumaLOG INSULIN (NovoLOG) PER UNIT SC SCH ×4 (08:12→21:20)
[2021-10-19] MEDS: DOCUSATE SODIUM 100MG CAPSULE PO SCH ×2 (08:12→20:48)
[2021-10-19] MEDS: MIRALAX *UNIT DOSE* 17GM PACKET PO SCH (08:12)
[2021-10-19] MEDS: OMEPRAZOLE 20MG CAP PO SCH (08:12)
[2021-10-19] MEDS: RIVAROXABAN 2.5 MG PO SCH ×2 (08:12→16:48)
[2021-10-19] MEDS: FLUTICASONE PROP 0.05% NASAL SPRAY 16 GM (FLONASE) SCH (08:13)
[2021-10-19] MEDS ORDERED: MAG SULF 1GM/100ML (MAG RUN) 1 GM in IV 1 EA IV ONE (11:10)
[2021-10-19 14:00] VITALS: BP 133/82
[2021-10-19 19:52] VITALS: BP 148/76
[2021-10-19] MEDS: ASPIRIN 81MG ENTERIC TABLET PO SCH (20:48)
[2021-10-19] MEDS: BACLOFEN 10 MG TAB PO SCH (20:49)
[2021-10-20 06:00] VITALS: BP 140/80
[2021-10-20 07:18] LABS: HEMATOCRIT 32.2 % (42.0-52.0); HEMOGLOBIN 10.1 g/dl (13.5-17.5); MEAN CORPUSCULAR HEMOGLOBIN 24.6 pg (27.0-33.0); MEAN CORPUSCULAR HGB CONC 31.4 g/dl (32.0-36.5); MEAN CORPUSCULAR VOLUME 78.3 fl (80.0-96.0); PLATELET COUNT, AUTOMATED 212 10^3/uL (150-450); RED BLOOD COUNT 4.11 10^6/uL (4.30-6.10); WHITE BLOOD COUNT 5.7 10^3/uL (4.0-10.0)
[2021-10-20 07:44] LABS: BLOOD UREA NITROGEN 26 MG/DL (7-18); CALCIUM LEVEL 8.9 MG/DL (8.8-10.2); CARBON DIOXIDE LEVEL 28 MEQ/L (21-32); CHLORIDE LEVEL 105 MEQ/L (98-107); CREATININE FOR GFR 1.06 MG/DL (0.70-1.30); GLOMERULAR FILTRATION RATE > 60.0 (>42); GLUCOSE, FASTING 244 MG/DL (70-100); MAGNESIUM LEVEL 1.7 MG/DL (1.8-2.4); POTASSIUM SERUM 4.1 MEQ/L (3.5-5.1); SODIUM LEVEL 137 MEQ/L (136-145)
[2021-10-20] MEDS: LACTOBACILLUS ACIDOPHILUS CAP (BACID) PO SCH ×2 (08:14→20:06)
[2021-10-20] MEDS: DOCUSATE SODIUM 100MG CAPSULE PO SCH ×2 (08:14→20:05)
[2021-10-20] MEDS: OMEPRAZOLE 20MG CAP PO SCH (08:14)
[2021-10-20] MEDS: oxyBUTYnin 5 MG TAB PO SCH ×2 (08:14→20:06)
[2021-10-20] MEDS: RIVAROXABAN 2.5 MG PO SCH ×2 (08:15→17:28)
[2021-10-20] MEDS: HumaLOG INSULIN (NovoLOG) PER UNIT SC SCH ×4 (08:15→21:00)
[2021-10-20] MEDS: MIRALAX *UNIT DOSE* 17GM PACKET PO SCH (08:15)
[2021-10-20 08:16] VITALS: BP 146/80
[2021-10-20] MEDS: FLUTICASONE PROP 0.05% NASAL SPRAY 16 GM (FLONASE) SCH (08:16)
[2021-10-20 14:00] VITALS: BP 140/75
[2021-10-20 19:07] VITALS: BP 165/92
[2021-10-20] MEDS: BACLOFEN 10 MG TAB PO SCH (20:05)
[2021-10-20] MEDS: ASPIRIN 81MG ENTERIC TABLET PO SCH (20:06)
[2021-10-20 20:17] VITALS: BP 154/93
[2021-10-21 06:00] VITALS: BP 120/78
[2021-10-21 06:50] LABS: HEMATOCRIT 33.4 % (42.0-52.0); HEMOGLOBIN 10.5 g/dl (13.5-17.5); MEAN CORPUSCULAR HEMOGLOBIN 24.5 pg (27.0-33.0); MEAN CORPUSCULAR HGB CONC 31.4 g/dl (32.0-36.5); MEAN CORPUSCULAR VOLUME 77.9 fl (80.0-96.0); PLATELET COUNT, AUTOMATED 254 10^3/uL (150-450); RED BLOOD COUNT 4.29 10^6/uL (4.30-6.10); WHITE BLOOD COUNT 5.8 10^3/uL (4.0-10.0)
[2021-10-21 07:22] LABS: BLOOD UREA NITROGEN 25 MG/DL (7-18); CARBON DIOXIDE LEVEL 26 MEQ/L (21-32); CHLORIDE LEVEL 103 MEQ/L (98-107); CREATININE FOR GFR 1.06 MG/DL (0.70-1.30); GLOMERULAR FILTRATION RATE > 60.0 (>42); GLUCOSE, FASTING 149 MG/DL (70-100); POTASSIUM SERUM 4.2 MEQ/L (3.5-5.1); SODIUM LEVEL 136 MEQ/L (136-145)
[2021-10-21 07:23] LABS: CALCIUM LEVEL 9.2 MG/DL (8.8-10.2); MAGNESIUM LEVEL 1.7 MG/DL (1.8-2.4)
[2021-10-21] MEDS: HumaLOG INSULIN (NovoLOG) PER UNIT SC SCH ×4 (07:59→20:04)
[2021-10-21] MEDS: MIRALAX *UNIT DOSE* 17GM PACKET PO SCH (07:59)
[2021-10-21] MEDS: RIVAROXABAN 2.5 MG PO SCH ×2 (07:59→17:16)
[2021-10-21] MEDS: oxyBUTYnin 5 MG TAB PO SCH ×2 (08:00→20:12)
[2021-10-21] MEDS: LACTOBACILLUS ACIDOPHILUS CAP (BACID) PO SCH ×2 (08:00→20:12)
[2021-10-21] MEDS: OMEPRAZOLE 20MG CAP PO SCH (08:01)
[2021-10-21] MEDS: DOCUSATE SODIUM 100MG CAPSULE PO SCH ×2 (08:08→20:12)
[2021-10-21] MEDS: FLUTICASONE PROP 0.05% NASAL SPRAY 16 GM (FLONASE) SCH (08:09)
[2021-10-21 14:00] VITALS: BP 123/78
[2021-10-21 19:10] VITALS: BP 157/87
[2021-10-21] MEDS: ASPIRIN 81MG ENTERIC TABLET PO SCH (20:11)
[2021-10-21] MEDS: BACLOFEN 10 MG TAB PO SCH (20:13)
[2021-10-22 05:59] VITALS: BP 146/82
[2021-10-22] MEDS: MIRALAX *UNIT DOSE* 17GM PACKET PO SCH (08:15)
[2021-10-22] MEDS: LACTOBACILLUS ACIDOPHILUS CAP (BACID) PO SCH ×2 (08:16→20:10)
[2021-10-22] MEDS: DOCUSATE SODIUM 100MG CAPSULE PO SCH ×2 (08:16→20:10)
[2021-10-22] MEDS: OMEPRAZOLE 20MG CAP PO SCH (08:16)
[2021-10-22] MEDS: HumaLOG INSULIN (NovoLOG) PER UNIT SC SCH ×4 (08:16→20:11)
[2021-10-22] MEDS: RIVAROXABAN 2.5 MG PO SCH ×2 (08:17→18:42)
[2021-10-22] MEDS: FLUTICASONE PROP 0.05% NASAL SPRAY 16 GM (FLONASE) SCH (08:17)
[2021-10-22] MEDS: oxyBUTYnin 5 MG TAB PO SCH ×2 (08:17→20:10)
[2021-10-22] MEDS: ASPIRIN 81MG ENTERIC TABLET PO SCH (20:10)
[2021-10-22] MEDS: BACLOFEN 10 MG TAB PO SCH (20:10)
[2021-10-23 08:00] VITALS: BP 127/71
[2021-10-23] MEDS: HumaLOG INSULIN (NovoLOG) PER UNIT SC SCH ×4 (08:44→20:44)
[2021-10-23] MEDS: RIVAROXABAN 2.5 MG PO SCH ×2 (10:13→17:48)
[2021-10-23] MEDS: LACTOBACILLUS ACIDOPHILUS CAP (BACID) PO SCH ×2 (10:14→20:43)
[2021-10-23] MEDS: MIRALAX *UNIT DOSE* 17GM PACKET PO SCH (10:14)
[2021-10-23] MEDS: DOCUSATE SODIUM 100MG CAPSULE PO SCH ×2 (10:14→20:43)
[2021-10-23] MEDS: OMEPRAZOLE 20MG CAP PO SCH (10:14)
[2021-10-23] MEDS: oxyBUTYnin 5 MG TAB PO SCH ×2 (10:15→20:43)
[2021-10-23] MEDS: FLUTICASONE PROP 0.05% NASAL SPRAY 16 GM (FLONASE) SCH (10:15)
[2021-10-23] MEDS: BACLOFEN 10 MG TAB PO SCH (20:43)
[2021-10-23] MEDS: ASPIRIN 81MG ENTERIC TABLET PO SCH (20:43)
[2021-10-24 05:54] VITALS: BP 139/75
[2021-10-24] MEDS: DOCUSATE SODIUM 100MG CAPSULE PO SCH ×2 (08:41→20:06)
[2021-10-24] MEDS: MIRALAX *UNIT DOSE* 17GM PACKET PO SCH (08:41)
[2021-10-24] MEDS: oxyBUTYnin 5 MG TAB PO SCH ×2 (08:41→20:06)
[2021-10-24] MEDS: HumaLOG INSULIN (NovoLOG) PER UNIT SC SCH ×4 (08:42→20:08)
[2021-10-24] MEDS: LACTOBACILLUS ACIDOPHILUS CAP (BACID) PO SCH ×2 (08:42→20:05)
[2021-10-24] MEDS: OMEPRAZOLE 20MG CAP PO SCH (08:42)
[2021-10-24] MEDS: RIVAROXABAN 2.5 MG PO SCH ×2 (08:42→18:00)
[2021-10-24] MEDS: FLUTICASONE PROP 0.05% NASAL SPRAY 16 GM (FLONASE) SCH (08:43)
[2021-10-24 14:00] VITALS: BP 150/86
[2021-10-24] MEDS: BACLOFEN 10 MG TAB PO SCH (20:06)
[2021-10-24] MEDS: ASPIRIN 81MG ENTERIC TABLET PO SCH (20:06)
[2021-10-25 06:00] VITALS: BP 146/86
[2021-10-25] MEDS: HumaLOG INSULIN (NovoLOG) PER UNIT SC SCH ×4 (08:13→20:38)
[2021-10-25 08:30] VITALS: BP 140/82
[2021-10-25] MEDS: FLUTICASONE PROP 0.05% NASAL SPRAY 16 GM (FLONASE) SCH (08:48)
[2021-10-25] MEDS: MIRALAX *UNIT DOSE* 17GM PACKET PO SCH (08:48)
[2021-10-25] MEDS: OMEPRAZOLE 20MG CAP PO SCH (08:48)
[2021-10-25] MEDS: LACTOBACILLUS ACIDOPHILUS CAP (BACID) PO SCH ×2 (08:49→20:37)
[2021-10-25] MEDS: oxyBUTYnin 5 MG TAB PO SCH ×2 (08:49→20:37)
[2021-10-25] MEDS: DOCUSATE SODIUM 100MG CAPSULE PO SCH ×2 (08:49→20:37)
[2021-10-25] MEDS: RIVAROXABAN 2.5 MG PO SCH ×2 (08:50→17:23)
[2021-10-25 10:58] LABS: HEMATOCRIT 31.5 % (42.0-52.0); HEMOGLOBIN 9.7 g/dl (13.5-17.5); MEAN CORPUSCULAR HEMOGLOBIN 24.3 pg (27.0-33.0); MEAN CORPUSCULAR HGB CONC 30.8 g/dl (32.0-36.5); MEAN CORPUSCULAR VOLUME 78.8 fl (80.0-96.0); PLATELET COUNT, AUTOMATED 309 10^3/uL (150-450); WHITE BLOOD COUNT 7.5 10^3/uL (4.0-10.0)
[2021-10-25 11:20] LABS: BLOOD UREA NITROGEN 31 MG/DL (7-18); CALCIUM LEVEL 9.3 MG/DL (8.8-10.2); CARBON DIOXIDE LEVEL 29 MEQ/L (21-32); CHLORIDE LEVEL 100 MEQ/L (98-107); CREATININE FOR GFR 1.07 MG/DL (0.70-1.30); GLOMERULAR FILTRATION RATE > 60.0 (>42); GLUCOSE, FASTING 167 MG/DL (70-100); POTASSIUM SERUM 3.7 MEQ/L (3.5-5.1); SODIUM LEVEL 136 MEQ/L (136-145)
[2021-10-25 14:00] VITALS: BP 142/84
[2021-10-25] MEDS: FOSFOMYCIN TROMETHAMINE 3 GM POWDER PACKET (MONUROL) PO SCH (20:35)
[2021-10-25] MEDS: ASPIRIN 81MG ENTERIC TABLET PO SCH (20:37)
[2021-10-25] MEDS: ATORVASTATIN 20 MG TAB PO SCH (20:37)
[2021-10-25] MEDS: BACLOFEN 10 MG TAB PO SCH (20:37)
[2021-10-26 05:50] VITALS: BP 135/78
[2021-10-26] MEDS: MIRALAX *UNIT DOSE* 17GM PACKET PO SCH (08:04)
[2021-10-26] MEDS: RIVAROXABAN 2.5 MG PO SCH ×2 (08:04→17:29)
[2021-10-26] MEDS: OMEPRAZOLE 20MG CAP PO SCH (08:05)
[2021-10-26] MEDS: LACTOBACILLUS ACIDOPHILUS CAP (BACID) PO SCH ×2 (08:05→22:01)
[2021-10-26] MEDS: DOCUSATE SODIUM 100MG CAPSULE PO SCH ×2 (08:05→22:01)
[2021-10-26] MEDS: HumaLOG INSULIN (NovoLOG) PER UNIT SC SCH ×4 (08:05→21:00)
[2021-10-26] MEDS: oxyBUTYnin 5 MG TAB PO SCH ×2 (08:06→22:02)
[2021-10-26] MEDS: FLUTICASONE PROP 0.05% NASAL SPRAY 16 GM (FLONASE) SCH (08:06)
[2021-10-26 08:07] VITALS: BP 144/84
[2021-10-26 14:00] VITALS: BP 145/85
[2021-10-26 21:49] VITALS: BP 157/87
[2021-10-26] MEDS: ASPIRIN 81MG ENTERIC TABLET PO SCH (22:01)
[2021-10-26] MEDS: BACLOFEN 10 MG TAB PO SCH (22:02)
[2021-10-27 06:00] VITALS: BP 152/88
[2021-10-27] MEDS: MIRALAX *UNIT DOSE* 17GM PACKET PO SCH (09:00)
[2021-10-27] MEDS: oxyBUTYnin 5 MG TAB PO SCH ×2 (10:26→21:36)
[2021-10-27] MEDS: RIVAROXABAN 2.5 MG PO SCH ×2 (10:26→17:39)
[2021-10-27] MEDS: HumaLOG INSULIN (NovoLOG) PER UNIT SC SCH ×4 (10:26→21:36)
[2021-10-27] MEDS: LACTOBACILLUS ACIDOPHILUS CAP (BACID) PO SCH ×2 (10:27→21:35)
[2021-10-27] MEDS: OMEPRAZOLE 20MG CAP PO SCH (10:27)
[2021-10-27] MEDS: DOCUSATE SODIUM 100MG CAPSULE PO SCH ×2 (10:27→21:35)
[2021-10-27] MEDS: FLUTICASONE PROP 0.05% NASAL SPRAY 16 GM (FLONASE) SCH (10:27)
[2021-10-27 14:00] VITALS: BP 139/81
[2021-10-27] MEDS: BACLOFEN 10 MG TAB PO SCH (21:35)
[2021-10-27] MEDS: ASPIRIN 81MG ENTERIC TABLET PO SCH (21:35)
[2021-10-27 22:00] VITALS: BP 156/80
[2021-10-28 06:00] VITALS: BP 145/86
[2021-10-28 07:21] LABS: BLOOD UREA NITROGEN 31 MG/DL (7-18); CARBON DIOXIDE LEVEL 32 MEQ/L (21-32); CHLORIDE LEVEL 99 MEQ/L (98-107); CREATININE FOR GFR 1.18 MG/DL (0.70-1.30); GLOMERULAR FILTRATION RATE > 60.0 (>42); GLUCOSE, FASTING 178 MG/DL (70-100); MAGNESIUM LEVEL 1.5 MG/DL (1.8-2.4); PHOSPHORUS LEVEL 2.9 MG/DL (2.5-4.9); POTASSIUM SERUM 3.8 MEQ/L (3.5-5.1); SODIUM LEVEL 138 MEQ/L (136-145)
[2021-10-28] MEDS: HumaLOG INSULIN (NovoLOG) PER UNIT SC SCH ×4 (08:30→21:00)
[2021-10-28] MEDS: DOCUSATE SODIUM 100MG CAPSULE PO SCH ×2 (08:30→21:43)
[2021-10-28] MEDS: RIVAROXABAN 2.5 MG PO SCH ×2 (08:30→16:57)
[2021-10-28] MEDS: MIRALAX *UNIT DOSE* 17GM PACKET PO SCH (08:30)
[2021-10-28] MEDS: oxyBUTYnin 5 MG TAB PO SCH ×2 (08:31→21:44)
[2021-10-28] MEDS: LACTOBACILLUS ACIDOPHILUS CAP (BACID) PO SCH ×2 (08:31→21:43)
[2021-10-28] MEDS: OMEPRAZOLE 20MG CAP PO SCH (08:31)
[2021-10-28] MEDS: FLUTICASONE PROP 0.05% NASAL SPRAY 16 GM (FLONASE) SCH (08:31)
[2021-10-28] MEDS: MOM 30ML SUSPENSION UDC PO PRN (11:43)
[2021-10-28] MEDS ORDERED: POLYVINYL ALCOHOL OPHTH SOLN 15 ML(LIQUITEARS) OU PRN (16:15)
[2021-10-28] MEDS: metFORMIN XR 500MG TAB *GLUCOPHAGE XR PO SCH (16:57)
[2021-10-28] MEDS: ASPIRIN 81MG ENTERIC TABLET PO SCH (21:43)
[2021-10-28] MEDS: BACLOFEN 10 MG TAB PO SCH (21:43)
[2021-10-29 06:07] VITALS: BP 136/83
[2021-10-29] MEDS: MIRALAX *UNIT DOSE* 17GM PACKET PO SCH (08:06)
[2021-10-29] MEDS: OMEPRAZOLE 20MG CAP PO SCH (08:06)
[2021-10-29] MEDS: DOCUSATE SODIUM 100MG CAPSULE PO SCH ×2 (08:06→22:10)
[2021-10-29] MEDS: HumaLOG INSULIN (NovoLOG) PER UNIT SC SCH ×4 (08:06→22:11)
[2021-10-29] MEDS: RIVAROXABAN 2.5 MG PO SCH ×2 (08:06→17:35)
[2021-10-29] MEDS: oxyBUTYnin 5 MG TAB PO SCH ×2 (08:07→22:11)
[2021-10-29] MEDS: LACTOBACILLUS ACIDOPHILUS CAP (BACID) PO SCH ×2 (08:07→22:10)
[2021-10-29] MEDS: FLUTICASONE PROP 0.05% NASAL SPRAY 16 GM (FLONASE) SCH (08:07)
[2021-10-29 11:45] LABS: HEMOGLOBIN 10.1 g/dl (13.5-17.5); MEAN CORPUSCULAR HEMOGLOBIN 23.7 pg (27.0-33.0); MEAN CORPUSCULAR HGB CONC 30.6 g/dl (32.0-36.5); MEAN CORPUSCULAR VOLUME 77.3 fl (80.0-96.0); PLATELET COUNT, AUTOMATED 461 10^3/uL (150-450); RED BLOOD COUNT 4.27 10^6/uL (4.30-6.10); WHITE BLOOD COUNT 8.3 10^3/uL (4.0-10.0)
[2021-10-29 12:09] LABS: BLOOD UREA NITROGEN 34 MG/DL (7-18); CALCIUM LEVEL 8.7 MG/DL (8.8-10.2); CARBON DIOXIDE LEVEL 30 MEQ/L (21-32); CHLORIDE LEVEL 99 MEQ/L (98-107); GLOMERULAR FILTRATION RATE > 60.0 (>42); GLUCOSE, FASTING 176 MG/DL (70-100); POTASSIUM SERUM 3.5 MEQ/L (3.5-5.1); SODIUM LEVEL 133 MEQ/L (136-145)
[2021-10-29] MEDS: metFORMIN XR 500MG TAB *GLUCOPHAGE XR PO SCH (17:32)
[2021-10-29] MEDS: ATORVASTATIN 20 MG TAB PO SCH (22:10)
[2021-10-29] MEDS: BACLOFEN 10 MG TAB PO SCH (22:11)
[2021-10-29] MEDS: ASPIRIN 81MG ENTERIC TABLET PO SCH (22:11)
[2021-10-30 05:58] VITALS: BP 139/84
[2021-10-30] MEDS: OMEPRAZOLE 20MG CAP PO SCH (08:28)
[2021-10-30] MEDS: DOCUSATE SODIUM 100MG CAPSULE PO SCH ×2 (08:28→21:11)
[2021-10-30] MEDS: LACTOBACILLUS ACIDOPHILUS CAP (BACID) PO SCH ×2 (08:28→21:12)
[2021-10-30] MEDS: HumaLOG INSULIN (NovoLOG) PER UNIT SC SCH ×4 (08:28→20:58)
[2021-10-30] MEDS: oxyBUTYnin 5 MG TAB PO SCH ×2 (08:28→21:12)
[2021-10-30] MEDS: FLUTICASONE PROP 0.05% NASAL SPRAY 16 GM (FLONASE) SCH (08:29)
[2021-10-30] MEDS: RIVAROXABAN 2.5 MG PO SCH ×2 (08:29→17:48)
[2021-10-30 14:00] VITALS: BP 128/71
[2021-10-30] MEDS: metFORMIN XR 500MG TAB *GLUCOPHAGE XR PO SCH (17:48)
[2021-10-30] MEDS: BACLOFEN 10 MG TAB PO SCH (21:11)
[2021-10-30] MEDS: ASPIRIN 81MG ENTERIC TABLET PO SCH (21:12)
[2021-10-30 22:00] VITALS: BP 142/85
[2021-10-31 06:00] VITALS: BP 141/82
[2021-10-31] MEDS: FLUTICASONE PROP 0.05% NASAL SPRAY 16 GM (FLONASE) SCH (08:00)
[2021-10-31] MEDS: HumaLOG INSULIN (NovoLOG) PER UNIT SC SCH ×4 (08:01→19:53)
[2021-10-31] MEDS: RIVAROXABAN 2.5 MG PO SCH ×2 (08:01→17:34)
[2021-10-31] MEDS: DOCUSATE SODIUM 100MG CAPSULE PO SCH ×2 (08:01→20:58)
[2021-10-31] MEDS: OMEPRAZOLE 20MG CAP PO SCH (08:02)
[2021-10-31] MEDS: LACTOBACILLUS ACIDOPHILUS CAP (BACID) PO SCH ×2 (08:02→20:22)
[2021-10-31] MEDS: oxyBUTYnin 5 MG TAB PO SCH ×2 (08:03→20:59)
[2021-10-31] MEDS ORDERED: HYDR-3490 PO (09:19)
[2021-10-31 14:00] VITALS: BP 126/61
[2021-10-31] MEDS: metFORMIN XR 500MG TAB *GLUCOPHAGE XR PO SCH (17:32)
[2021-10-31 18:00] VITALS: BP 139/81
[2021-10-31] MEDS: ATORVASTATIN 20 MG TAB PO SCH (20:58)
[2021-10-31] MEDS: BACLOFEN 10 MG TAB PO SCH (20:59)
[2021-10-31] MEDS: ASPIRIN 81MG ENTERIC TABLET PO SCH (20:59)
[2021-11-01 05:16] VITALS: BP 138/80
[2021-11-01] MEDS: MOM 30ML SUSPENSION UDC PO PRN (07:50)
[2021-11-01] MEDS: RIVAROXABAN 2.5 MG PO SCH (07:52)
[2021-11-01] MEDS: HumaLOG INSULIN (NovoLOG) PER UNIT SC SCH ×2 (07:53→12:14)
[2021-11-01] MEDS: DOCUSATE SODIUM 100MG CAPSULE PO SCH (07:53)
[2021-11-01] MEDS: oxyBUTYnin 5 MG TAB PO SCH (07:54)
[2021-11-01] MEDS: OMEPRAZOLE 20MG CAP PO SCH (07:54)
[2021-11-01] MEDS: FLUTICASONE PROP 0.05% NASAL SPRAY 16 GM (FLONASE) SCH (07:54)
[2021-11-01] MEDS: LACTOBACILLUS ACIDOPHILUS CAP (BACID) PO SCH (07:54)
[2021-11-01 10:06] LABS: HEMATOCRIT 34.5 % (42.0-52.0); HEMOGLOBIN 10.6 g/dl (13.5-17.5); MEAN CORPUSCULAR HEMOGLOBIN 23.4 pg (27.0-33.0); MEAN CORPUSCULAR HGB CONC 30.7 g/dl (32.0-36.5); MEAN CORPUSCULAR VOLUME 76.2 fl (80.0-96.0); PLATELET COUNT, AUTOMATED 657 10^3/uL (150-450); RED BLOOD COUNT 4.53 10^6/uL (4.30-6.10); WHITE BLOOD COUNT 9.8 10^3/uL (4.0-10.0)
[2021-11-01 10:38] LABS: BLOOD UREA NITROGEN 30 MG/DL (7-18); CALCIUM LEVEL 9.2 MG/DL (8.8-10.2); CARBON DIOXIDE LEVEL 33 MEQ/L (21-32); CHLORIDE LEVEL 96 MEQ/L (98-107); CREATININE FOR GFR 1.17 MG/DL (0.70-1.30); GLOMERULAR FILTRATION RATE > 60.0 (>42); GLUCOSE, FASTING 142 MG/DL (70-100); POTASSIUM SERUM 3.4 MEQ/L (3.5-5.1); SODIUM LEVEL 135 MEQ/L (136-145)
[2021-11-01] MEDS ORDERED: POTA1TAB14 PO (13:48)
== END 2021-11-01 13:02 | DRG 699 ==
LOC: M ED 20:47 → M ED INP 10-15 00:01 → ENRESERV 10-15 00:19 → M PCU 10-15 01:45 → M MSPAV 10-17 16:49
PROVIDERS: ADMIT Family Medicine; ATTEND Internal Medicine
DX: T83.511A Infection and inflammatory reaction due to indwelling urethral catheter, initial encounter (principal); J84.9 Interstitial pulmonary disease, unspecified; N39.0 Urinary tract infection, site not specified; G35 Multiple sclerosis; I10 Essential (primary) hypertension; G47.33 Obstructive sleep apnea (adult) (pediatric); I25.10 Atherosclerotic heart disease of native coronary artery without angina pectoris; Z95.5 Presence of coronary angioplasty implant and graft; E11.9 Type 2 diabetes mellitus without complications; N31.9 Neuromuscular dysfunction of bladder, unspecified; Z79.2 Long term (current) use of antibiotics; Z79.01 Long term (current) use of anticoagulants; Z87.891 Personal history of nicotine dependence; Z20.822 Contact with and (suspected) exposure to COVID-19; R68.0 Hypothermia, not associated with low environmental temperature; R91.8 Other nonspecific abnormal finding of lung field; K21.9 Gastro-esophageal reflux disease without esophagitis; Z79.82 Long term (current) use of aspirin; Z79.899 Other long term (current) drug therapy; Z88.8 Allergy status to other drugs, medicaments and biological substances; R31.0 Gross hematuria; Z95.1 Presence of aortocoronary bypass graft; Z86.718 Personal history of other venous thrombosis and embolism

== ENCOUNTER → 2021-11-05 | Outpatient (REF) ==
[~2021-11-05] MED LIST changes: +HYDR-3490 PO; +POTA1TAB14 PO
[2021-11-05 12:32] LABS: BLOOD UREA NITROGEN 26 MG/DL (7-18); CALCIUM LEVEL 10.3 MG/DL (8.8-10.2); CARBON DIOXIDE LEVEL 28 MEQ/L (21-32); CHLORIDE LEVEL 99 MEQ/L (98-107); CREATININE FOR GFR 1.21 MG/DL (0.70-1.30); GLOMERULAR FILTRATION RATE > 60.0 (>42); GLUCOSE, FASTING 183 MG/DL (70-100); POTASSIUM SERUM 4.2 MEQ/L (3.5-5.1); SODIUM LEVEL 135 MEQ/L (136-145)
== END ==
PROVIDERS: ATTEND Internal Medicine
DX: E87.6 Hypokalemia (principal)

== ENCOUNTER → 2021-11-22 | Outpatient (REF) ==
[2021-11-22 10:40] LABS: HEMATOCRIT 33.2 % (42.0-52.0); HEMOGLOBIN 9.8 g/dl (13.5-17.5); MEAN CORPUSCULAR HEMOGLOBIN 22.1 pg (27.0-33.0); MEAN CORPUSCULAR HGB CONC 29.5 g/dl (32.0-36.5); MEAN CORPUSCULAR VOLUME 74.9 fl (80.0-96.0); PLATELET COUNT, AUTOMATED 404 10^3/uL (150-450); RED BLOOD COUNT 4.43 10^6/uL (4.30-6.10); WHITE BLOOD COUNT 11.7 10^3/uL (4.0-10.0)
[2021-11-22 11:00] LABS: CALCIUM LEVEL 9.2 MG/DL (8.8-10.2); CREATININE FOR GFR 1.24 MG/DL (0.70-1.30); POTASSIUM SERUM 3.9 MEQ/L (3.5-5.1)
[2021-11-22 13:39] LABS: APPEARANCE, URINE CLEAR (CLEAR); BACTERIA, URINE AUTO NEGATIVE (NEGATIVE); BILIRUBIN, URINE AUTO NEGATIVE (NEGATIVE); BLOOD, URINE BLOOD 1+ (NEGATIVE); COLOR, URINE YELLOW (YELLOW); GLUCOSE, URINE (UA) AUTO NEGATIVE (NEGATIVE); KETONE, URINE AUTO NEGATIVE (NEGATIVE); LEUKOCYTE ESTERASE, URINE AUTO 1+ (NEGATIVE); MUCUS, URINE SMALL (NEGATIVE); NITRITE, URINE AUTO POSITIVE (NEGATIVE); PROTEIN, URINE AUTO 1+ mg/dL (NEGATIVE); RBC, URINE AUTO 19 /HPF (0-3); SPECIFIC GRAVITY URINE AUTO 1.015 (1.002-1.035); SQUAMOUS EPITHELIAL CELL UR AU 0 /HPF (0-6); UROBILINOGEN, URINE AUTO 0.2 mg/dL (0.0-2.0); WBC, URINE AUTO 11 /HPF (0-3)
== END ==
PROVIDERS: ATTEND Internal Medicine
DX: R50.9 Fever, unspecified (principal)

== ENCOUNTER → 2021-11-23 | Outpatient (REF) ==
[2021-11-23 14:00] LABS: HEMATOCRIT 32.9 % (42.0-52.0); HEMOGLOBIN 9.6 g/dl (13.5-17.5); MEAN CORPUSCULAR HEMOGLOBIN 22.1 pg (27.0-33.0); MEAN CORPUSCULAR HGB CONC 29.2 g/dl (32.0-36.5); MEAN CORPUSCULAR VOLUME 75.8 fl (80.0-96.0); PLATELET COUNT, AUTOMATED 406 10^3/uL (150-450); RED BLOOD COUNT 4.34 10^6/uL (4.30-6.10); WHITE BLOOD COUNT 6.3 10^3/uL (4.0-10.0)
[2021-11-23 14:32] LABS: CALCIUM LEVEL 8.9 MG/DL (8.8-10.2); CREATININE FOR GFR 1.37 MG/DL (0.70-1.30); GLOMERULAR FILTRATION RATE 53.5 (>42); POTASSIUM SERUM 3.9 MEQ/L (3.5-5.1)
== END ==
PROVIDERS: ATTEND Internal Medicine
DX: R50.9 Fever, unspecified (principal)

== ENCOUNTER → 2021-12-04 | Outpatient (REF) ==
[2021-12-04 11:28] LABS: HEMATOCRIT 34.1 % (42.0-52.0); HEMOGLOBIN 10.1 g/dl (13.5-17.5); MEAN CORPUSCULAR HGB CONC 29.6 g/dl (32.0-36.5); MEAN CORPUSCULAR VOLUME 74.1 fl (80.0-96.0); PLATELET COUNT, AUTOMATED 470 10^3/uL (150-450); WHITE BLOOD COUNT 7.4 10^3/uL (4.0-10.0)
[2021-12-04 12:19] LABS: ALBUMIN 3.4 GM/DL (3.2-5.2); ALT/SGPT 39 U/L (12-78); BILIRUBIN,TOTAL 0.4 MG/DL (0.2-1.0); BLOOD UREA NITROGEN 22 MG/DL (7-18); CALCIUM LEVEL 9.8 MG/DL (8.8-10.2); CARBON DIOXIDE LEVEL 27 MEQ/L (21-32); CHLORIDE LEVEL 99 MEQ/L (98-107); CREATININE FOR GFR 1.13 MG/DL (0.70-1.30); FERRITIN 30 NG/ML (26-388); GLOMERULAR FILTRATION RATE > 60.0 (>42); GLUCOSE, FASTING 156 MG/DL (70-100); IRON (FE) 14 UG/DL (65-175); PERCENT SATURATION 4.3 % (19.7-50.0); POTASSIUM SERUM 4.2 MEQ/L (3.5-5.1); SODIUM LEVEL 137 MEQ/L (136-145); TOTAL 25(OH) VITAMIN D 45.4 NG/ML (30.0-100.0); TOTAL IRON BINDING CAPACITY 324 UG/DL (250-450); TOTAL PROTEIN 7.8 GM/DL (6.4-8.2)
[2021-12-04 12:49] LABS: HEMOGLOBIN A1c 7.2 %
== END ==
PROVIDERS: ATTEND Internal Medicine
DX: E11.9 Type 2 diabetes mellitus without complications (principal)

== ENCOUNTER → 2021-12-04 | Outpatient (REF) | PROVIDERS: ATTEND Internal Medicine Pulmonary Disease | DX: J84.9 Interstitial pulmonary disease, unspecified (principal); Z53.9 Procedure and treatment not carried out, unspecified reason ==

== ENCOUNTER → 2021-12-13 | Outpatient (REF) | payer MEDICARE ==
[~2021-12-13] MED LIST changes: +LASI20TA3 PO
[2021-12-13 18:21] LABS: APPEARANCE, URINE CLEAR (CLEAR); BACTERIA, URINE AUTO 1+ (NEGATIVE); BILIRUBIN, URINE AUTO NEGATIVE (NEGATIVE); BLOOD, URINE BLOOD NEGATIVE (NEGATIVE); COLOR, URINE YELLOW (YELLOW); GLUCOSE, URINE (UA) AUTO NEGATIVE (NEGATIVE); KETONE, URINE AUTO NEGATIVE (NEGATIVE); LEUKOCYTE ESTERASE, URINE AUTO 2+ (NEGATIVE); NITRITE, URINE AUTO NEGATIVE (NEGATIVE); PROTEIN, URINE AUTO NEGATIVE (NEGATIVE); RBC, URINE AUTO 1 /HPF (0-3); SQUAMOUS EPITHELIAL CELL UR AU 0 /HPF (0-6); UROBILINOGEN, URINE AUTO 0.2 mg/dL (0.0-2.0); WBC, URINE AUTO 19 /HPF (0-3)
== END ==
LOC: M SFHCPLAZ 17:21
PROVIDERS: ATTEND Internal Medicine Infectious Disease
DX: N39.0 Urinary tract infection, site not specified (principal)

== ENCOUNTER → 2021-12-17 | Outpatient (CLI) | payer OTHER, MEDICARE | LOC: M LABSMTC 09:33 | PROVIDERS: ATTEND Anesthesiology | DX: Z01.812 Encounter for preprocedural laboratory examination (principal) ==

== ENCOUNTER 2021-12-21 10:59 | Day surgery (SDC) | payer MEDICARE ==
[~2021-12-21] VITALS: Ht 175.3 cm; Wt 88.5 kg
[~2021-12-21 10:59] MED LIST changes: +LevoFLOXacin IV 500 MG in IV 1 EA IV ONE
[2021-12-21] MEDS ORDERED: LIDOCAINE 1% SDV 30ML VIAL As Ordered ONE (11:16)
[2021-12-21] MEDS ORDERED: BUPIVACAINE HCL 0.25% 30ML VIAL As Ordered ONE (11:16)
[2021-12-21] MEDS ORDERED: LR 1,000 ML IV SCH ×2 (11:25→14:45)
[2021-12-21] MEDS ORDERED: ONDANSETRON 4MG/2ML VIAL As Ordered ONE (12:51)
[2021-12-21] MEDS ORDERED: ROCURONIUM BROMIDE 50 MG/5 ML VIAL As Ordered ONE (12:51)
[2021-12-21] MEDS ORDERED: dexameTHASONE 4 MG/ML 1ML VIAL (J1100 PER 1MG) As Ordered ONE (12:51)
[2021-12-21] MEDS ORDERED: fentaNYL 250 MCG/5 ML INJECTION As Ordered ONE (12:51)
[2021-12-21] MEDS ORDERED: LIDOCAINE 2% 100MG/5ML SDV (FOR ANES.) As Ordered ONE (12:51)
[2021-12-21] MEDS ORDERED: propofoL 200 MG/20 ML VIAL As Ordered ONE (12:51)
[2021-12-21] MEDS ORDERED: MIDAZOLAM INJ 2MG/2ML VIAL (J2250 PER 1MG) As Ordered ONE (12:52)
[2021-12-21] MEDS ORDERED: ETOMIDATE INJ 20MG/10ML VIAL As Ordered ONE (13:17)
[2021-12-21] MEDS ORDERED: SUGAMMADEX SODIUM 500 MG/5 ML VIAL (BRIDION) As Ordered ONE (14:13)
[2021-12-21] MEDS ORDERED: LACRILUBE (AKWA TEARS) OPHTH OINT 3.5 GM As Ordered ONE (14:13)
[2021-12-21] MEDS ORDERED: ACETAMINOPHEN 1000MG 100ML IV BTL (OFIRMEV) (J0131 PER 10MG) As Ordered ONE (14:13)
[2021-12-21] MEDS ORDERED: PHENYLephrine 500MCG 5ML (100MCG/ML) SYRINGE As Ordered ONE (14:19)
[2021-12-21] MEDS ORDERED: ePHEDrine SULFATE 25 MG/5 ML(5MG/ML) SYRINGE As Ordered ONE (14:19)
[2021-12-21] MEDS ORDERED: oxyCODONE 5MG TAB PO PRN (14:45)
[2021-12-21] MEDS ORDERED: ONDANSETRON 4MG/2ML VIAL IV PRN (14:45)
[2021-12-21] MEDS ORDERED: fentaNYL 100 MCG/2 ML INJECTION IV PRN (14:45)
[2021-12-21 16:30] VITALS: BP 167/73
== END 2021-12-21 16:45 | disposition home or self-care (01) ==
LOC: M SDC 10:59
PROVIDERS: ATTEND Urology
DX: N31.9 Neuromuscular dysfunction of bladder, unspecified (principal); R33.9 Retention of urine, unspecified; Z87.440 Personal history of urinary (tract) infections; G35 Multiple sclerosis; I11.9 Hypertensive heart disease without heart failure; E78.5 Hyperlipidemia, unspecified; I74.3 Embolism and thrombosis of arteries of the lower extremities; G47.33 Obstructive sleep apnea (adult) (pediatric); E55.9 Vitamin D deficiency, unspecified; I71.4 Abdominal aortic aneurysm, without rupture; D50.9 Iron deficiency anemia, unspecified; E11.9 Type 2 diabetes mellitus without complications; Z79.899 Other long term (current) drug therapy; Z79.01 Long term (current) use of anticoagulants; Z79.82 Long term (current) use of aspirin; Z79.2 Long term (current) use of antibiotics; Z87.891 Personal history of nicotine dependence; Z88.8 Allergy status to other drugs, medicaments and biological substances; Z88.1 Allergy status to other antibiotic agents
CPT/HCPCS: 51040; J0131; J1100; J1956; J2250; J2370; J2405; J3010

== ENCOUNTER → 2022-01-02 | Outpatient (CLI) | payer MEDICARE ==
[~2022-01-02] MED LIST changes: -LevoFLOXacin IV 500 MG in IV 1 EA IV ONE
[2022-01-03 13:07] LABS: RNP ANTIBODY 0.3 AI (0.0-0.9); SMITHS ANTIBODY < 0.2 AI (0.0-0.9)
== END ==
LOC: M WUC 08:06
PROVIDERS: ATTEND Internal Medicine Pulmonary Disease
DX: J84.9 Interstitial pulmonary disease, unspecified (principal)

== ENCOUNTER → 2022-03-08 | Outpatient (CLI) | payer OTHER ==
[~2022-03-08] MED LIST changes: +LEVO1TAB39 PO; +LEVO1TAB40 PO; -LEVO500T4 PO; -LEVO750T13 PO
== END ==
LOC: M RAD 10:30
PROVIDERS: ATTEND Nurse Practitioner Family
DX: I73.9 Peripheral vascular disease, unspecified (principal)

== ENCOUNTER → 2022-03-20 | Outpatient (REF) | payer MEDICARE ==
[2022-03-20 17:50] LABS: HEMATOCRIT 38.1 % (42.0-52.0); HEMOGLOBIN 10.9 g/dl (13.5-17.5); MEAN CORPUSCULAR HEMOGLOBIN 19.6 pg (27.0-33.0); MEAN CORPUSCULAR HGB CONC 28.6 g/dl (32.0-36.5); MEAN CORPUSCULAR VOLUME 68.4 fl (80.0-96.0); PLATELET COUNT, AUTOMATED 473 10^3/uL (150-450); RED BLOOD COUNT 5.57 10^6/uL (4.30-6.10); WHITE BLOOD COUNT 5.8 10^3/uL (4.0-10.0)
[2022-03-20 18:35] LABS: ALBUMIN 3.7 GM/DL (3.2-5.2); BILIRUBIN,TOTAL 0.4 MG/DL (0.2-1.0); CALCIUM LEVEL 9.7 MG/DL (8.8-10.2); CHOLESTEROL RISK RATIO 3.825 (<5); CREATININE FOR GFR 1.24 MG/DL (0.70-1.30); FREE T4 1.12 NG/DL (0.76-1.46); PERCENT SATURATION 4.2 % (19.7-50.0); POTASSIUM SERUM 4.3 MEQ/L (3.5-5.1); THYROID STIMULATING HORMONE 1.37 uIU/ML (0.358-3.740); TOTAL PROTEIN 9.3 GM/DL (6.4-8.2)
[2022-03-20 19:08] LABS: HEMOGLOBIN A1c 6.8 %
[2022-03-20 19:18] LABS: TOTAL 25(OH) VITAMIN D 62.3 NG/ML (30.0-100.0)
== END ==
LOC: M SFHCADAM 12:07
PROVIDERS: ATTEND Family Medicine
DX: E55.9 Vitamin D deficiency, unspecified (principal); E11.9 Type 2 diabetes mellitus without complications; D50.0 Iron deficiency anemia secondary to blood loss (chronic); E78.5 Hyperlipidemia, unspecified; Z79.899 Other long term (current) drug therapy

== ENCOUNTER → 2022-04-02 | Outpatient (CLI) | payer MEDICARE | LOC: M RAD 10:36 | PROVIDERS: ATTEND Internal Medicine Gastroenterology | DX: J84.9 Interstitial pulmonary disease, unspecified (principal) ==

== ENCOUNTER 2022-04-24 10:02 | Outpatient (CLI) | payer MEDICARE ==
[~2022-04-24 10:02] MED LIST changes: +ALBUTEROL SULFATE 2.5 MG/0.5 ML INH NEB SOLN INH PRN; +EPINEPHrine INJ 1 MG/ML 1ML AMP IM PRN; +diphenhydrAMINE 50MG/ML VIAL (J1200) IV PRN; +methylPREDNISolone 125MG 2ML VIAL IV PRN
[2022-04-24 10:15] VITALS: BP 173/94
[2022-04-24] MEDS ORDERED: IRON SUCROSE 25 MG in NS 23.75 ML IV ONE (10:30)
[2022-04-24] MEDS ORDERED: NS 1,000 ML IV SCH (10:30)
[2022-04-24] MEDS ORDERED: IRON SUCROSE 225 MG in NS 213.75 ML IV ONE (10:30)
[2022-04-24 10:58] VITALS: BP 178/99
[2022-04-24 11:15] VITALS: BP_SYST 158; BP_DIAS 78; BP_DIAS 8
[2022-04-24 11:49] VITALS: BP 160/80
[2022-04-24 13:00] VITALS: BP 148/72
== END 2022-04-24 13:30 | disposition home or self-care (01) ==
LOC: M INFU 10:02
PROVIDERS: ATTEND Family Medicine
DX: D50.9 Iron deficiency anemia, unspecified (principal); Z88.8 Allergy status to other drugs, medicaments and biological substances
CPT/HCPCS: 96365; J1756

== ENCOUNTER 2022-05-01 10:45 | Outpatient (CLI) | payer MEDICARE ==
[~2022-05-01] VITALS: Ht 175.3 cm; Wt 88.5 kg
[2022-05-01 10:45] VITALS: BP 140/88
[~2022-05-01 10:45] MED LIST changes: -ALBUTEROL SULFATE 2.5 MG/0.5 ML INH NEB SOLN INH PRN; -EPINEPHrine INJ 1 MG/ML 1ML AMP IM PRN; -diphenhydrAMINE 50MG/ML VIAL (J1200) IV PRN; -methylPREDNISolone 125MG 2ML VIAL IV PRN
[2022-05-01] MEDS ORDERED: methylPREDNISolone 125MG 2ML VIAL IV PRN (11:00)
[2022-05-01] MEDS ORDERED: NS 1,000 ML IV SCH (11:00)
[2022-05-01] MEDS ORDERED: IRON SUCROSE 250 MG in NS 237.5 ML IV ONE (11:00)
[2022-05-01] MEDS ORDERED: diphenhydrAMINE 50MG/ML VIAL (J1200) IV PRN (11:00)
[2022-05-01] MEDS ORDERED: ALBUTEROL SULFATE 2.5 MG/0.5 ML INH NEB SOLN INH PRN (11:00)
[2022-05-01] MEDS ORDERED: EPINEPHrine INJ 1 MG/ML 1ML AMP IM PRN (11:00)
[2022-05-01 12:40] VITALS: BP 130/72
== END 2022-05-01 13:00 | disposition home or self-care (01) ==
LOC: M INFU 10:45
PROVIDERS: ATTEND Family Medicine
DX: D50.9 Iron deficiency anemia, unspecified (principal); Z88.8 Allergy status to other drugs, medicaments and biological substances
CPT/HCPCS: 96365; 96366; J1756

== ENCOUNTER 2022-05-08 09:20 | Outpatient (CLI) | payer MEDICARE ==
[~2022-05-08] VITALS: Ht 175.3 cm; Wt 88.5 kg
[2022-05-08 09:20] VITALS: BP 124/75
[~2022-05-08 09:20] MED LIST changes: +ALBUTEROL SULFATE 2.5 MG/0.5 ML INH NEB SOLN INH PRN; +EPINEPHrine INJ 1 MG/ML 1ML AMP IM PRN; +NS 1,000 ML IV SCH; +diphenhydrAMINE 50MG/ML VIAL (J1200) IV PRN; +methylPREDNISolone 125MG 2ML VIAL IV PRN
[2022-05-08] MEDS ORDERED: IRON SUCROSE 250 MG in NS 237.5 ML IV ONE (09:30)
[2022-05-08 12:10] VITALS: BP 144/88
== END 2022-05-08 12:10 | disposition home or self-care (01) ==
LOC: M INFU 09:20
PROVIDERS: ATTEND Family Medicine
DX: D50.9 Iron deficiency anemia, unspecified (principal); Z88.8 Allergy status to other drugs, medicaments and biological substances
CPT/HCPCS: 96365; 96366; J1756

== ENCOUNTER 2022-05-24 14:58 | Inpatient (IN) | payer MEDICARE ==
[~2022-05-24] VITALS: Ht 175.3 cm; Wt 85.6 kg
[~2022-05-24 14:58] MED LIST changes: -ALBUTEROL SULFATE 2.5 MG/0.5 ML INH NEB SOLN INH PRN; -EPINEPHrine INJ 1 MG/ML 1ML AMP IM PRN; -FLUTISP; -NS 1,000 ML IV SCH; -diphenhydrAMINE 50MG/ML VIAL (J1200) IV PRN; -methylPREDNISolone 125MG 2ML VIAL IV PRN
[2022-05-24] MEDS ORDERED: LABETALOL 100MG/20ML VIAL IV STA ×2 (16:08→16:45)
[2022-05-24 16:28] LABS: BASO # 0.1 10^3/uL (0.0-0.2); BASO % 0.8 % (0.0-1.0); EOS # 0.1 10^3/uL (0.0-0.5); EOS % 1.4 % (0.0-3.0); HEMATOCRIT 45.6 % (42.0-52.0); LYMPH % 14.9 % (24.0-44.0); MEAN CORPUSCULAR HEMOGLOBIN 22.8 pg (27.0-33.0); MEAN CORPUSCULAR HGB CONC 30.7 g/dl (32.0-36.5); MEAN CORPUSCULAR VOLUME 74.3 fl (80.0-96.0); MONO # 0.4 10^3/uL (0.0-0.8); MONO % 6.3 % (2.0-8.0); NEUTROPHILS % 76.3 % (36.0-66.0); PLATELET COUNT, AUTOMATED 316 10^3/uL (150-450); RED BLOOD COUNT 6.14 10^6/uL (4.30-6.10); WHITE BLOOD COUNT 6.6 10^3/uL (4.0-10.0)
[2022-05-24 16:39] LABS: INR 1.06; PROTHROMBIN TIME 14.1 SECONDS (12.5-14.5)
[2022-05-24 16:40] LABS: PARTIAL THROMBOPLASTIN TIME 35.7 SECONDS (24.8-34.2)
[2022-05-24] MEDS ORDERED: diphenhydrAMINE 25MG CAP PO ONE (16:45)
[2022-05-24 16:59] LABS: BLOOD UREA NITROGEN 19 MG/DL (7-18); CALCIUM LEVEL 9.3 MG/DL (8.8-10.2); CARBON DIOXIDE LEVEL 29 MEQ/L (21-32); CHLORIDE LEVEL 95 MEQ/L (98-107); CREATININE FOR GFR 0.95 MG/DL (0.70-1.30); GLOMERULAR FILTRATION RATE > 60.0 (>42); GLUCOSE, FASTING 93 MG/DL (70-100); POTASSIUM SERUM 4.4 MEQ/L (3.5-5.1); SODIUM LEVEL 131 MEQ/L (136-145)
[2022-05-24] MEDS ORDERED: VENTAER INH (17:52)
[2022-05-24] MEDS ORDERED: BACI1CAP PO (17:52)
[2022-05-24] MEDS ORDERED: HOME MED LIST COMPLETE! XX SCH (17:55)
[2022-05-24] MEDS ORDERED: ISOVUE-370 76% 100ML VIAL As Ordered ONE (17:58)
[2022-05-24] MEDS: INSULIN LISPRO (NovoLOG) PER UNIT SC SCH (18:00)
[2022-05-24 18:09] LABS: RSV AMPLIFICATION NEGATIVE (NEGATIVE)
[2022-05-24] MEDS ORDERED: ASPIRIN 81 MG CHEW TABLET PO ONE (18:25)
[2022-05-24] MEDS ORDERED: DEXTROSE 50% 50 ML SYRINGE IV PRN (18:30)
[2022-05-24] MEDS ORDERED: GLUCOSE 4GM CHEW TABLET PO PRN (18:30)
[2022-05-24] MEDS ORDERED: ALBUTEROL 90 MCG/ACT 8GM HFA INHALER INH PRN (18:30)
[2022-05-24] MEDS ORDERED: GLUCAGON INJ 1MG VIAL SC PRN (18:30)
[2022-05-24] MEDS ORDERED: LABETALOL 100MG/20ML VIAL IV PRN (18:40)
[2022-05-24] MEDS ORDERED: hydrALAZINE 20MG/ML 1ML VIAL (J0360 PER 20MG) IV PRN (18:40)
[2022-05-24 19:52] LABS: CHOLESTEROL LEVEL 126 MG/DL (<200); CHOLESTEROL RISK RATIO 2.333 (<5); HDL CHOLESTEROL 54 MG/DL (>40); LDL CHOLESTEROL 57 MG/DL (<100); NON-HDL-C 72 MG/DL; TRIGLYCERIDES LEVEL 73 MG/DL (<150)
[2022-05-24 21:25] VITALS: BP 166/90
[2022-05-24 21:52] LABS: HEMOGLOBIN A1c 5.9 %
[2022-05-24] MEDS: oxyBUTYnin 5 MG TAB PO SCH (22:55)
[2022-05-24] MEDS: VITAMIN D 1,000 INTERNATIONAL UNITS TABLET PO SCH (22:55)
[2022-05-24] MEDS: DOCUSATE SODIUM 100MG CAPSULE PO SCH (22:55)
[2022-05-24] MEDS: BACLOFEN 10 MG TAB PO SCH (22:56)
[2022-05-24] MEDS: RIVAROXABAN 10MG TAB (XARELTO) PO SCH (23:18)
[2022-05-24] MEDS ORDERED: PILL CUTTER 1 EACH XX ONE (23:19)
[2022-05-25] VITALS: BP 156/78
[2022-05-25 04:00] VITALS: BP 120/76
[2022-05-25] MEDS: INSULIN LISPRO (NovoLOG) PER UNIT SC SCH ×4 (05:50→18:44)
[2022-05-25 07:22] LABS: HEMATOCRIT 40.2 % (42.0-52.0); HEMOGLOBIN 12.1 g/dl (13.5-17.5); MEAN CORPUSCULAR HEMOGLOBIN 22.3 pg (27.0-33.0); MEAN CORPUSCULAR HGB CONC 30.1 g/dl (32.0-36.5); MEAN CORPUSCULAR VOLUME 74.2 fl (80.0-96.0); PLATELET COUNT, AUTOMATED 283 10^3/uL (150-450); RED BLOOD COUNT 5.42 10^6/uL (4.30-6.10); WHITE BLOOD COUNT 5.6 10^3/uL (4.0-10.0)
[2022-05-25 07:50] LABS: ALBUMIN 3.2 GM/DL (3.2-5.2); ALT/SGPT 64 U/L (12-78); BILIRUBIN,TOTAL 0.3 MG/DL (0.2-1.0); BLOOD UREA NITROGEN 20 MG/DL (7-18); CALCIUM LEVEL 9.2 MG/DL (8.8-10.2); CARBON DIOXIDE LEVEL 27 MEQ/L (21-32); CHLORIDE LEVEL 98 MEQ/L (98-107); CREATININE FOR GFR 1.15 MG/DL (0.70-1.30); GLOMERULAR FILTRATION RATE > 60.0 (>42); GLUCOSE, FASTING 107 MG/DL (70-100); MAGNESIUM LEVEL 1.8 MG/DL (1.8-2.4); POTASSIUM SERUM 4.3 MEQ/L (3.5-5.1); SODIUM LEVEL 131 MEQ/L (136-145)
[2022-05-25 08:44] VITALS: BP 162/84
[2022-05-25] MEDS: BACLOFEN 10 MG TAB PO SCH ×2 (08:52→20:30)
[2022-05-25] MEDS: OMEPRAZOLE 20MG CAP PO SCH (08:52)
[2022-05-25] MEDS: FLUTICASONE PROP 0.05% NASAL SPRAY 16 GM (FLONASE) NARES SCH (08:52)
[2022-05-25] MEDS: RIVAROXABAN 10MG TAB (XARELTO) PO SCH ×2 (08:52→18:41)
[2022-05-25] MEDS: oxyBUTYnin 5 MG TAB PO SCH ×2 (08:52→20:31)
[2022-05-25] MEDS: LACTOBACILLUS ACIDOPHILUS CAP (BACID) PO SCH ×2 (08:52→18:40)
[2022-05-25] MEDS: ASCORBIC ACID 500 MG TAB PO SCH (08:52)
[2022-05-25] MEDS: OYSTER SHELL CALCIUM 500 MG TAB PO SCH (08:52)
[2022-05-25] MEDS: ASPIRIN 81 MG CHEW TABLET PO SCH (08:52)
[2022-05-25] MEDS: MIRALAX *UNIT DOSE* 17GM PACKET PO SCH (08:53)
[2022-05-25] MEDS: LACTIC ACID 12% LOTION 225 GM BTL TOP SCH (08:53)
[2022-05-25] MEDS: DOCUSATE SODIUM 100MG CAPSULE PO SCH ×2 (08:53→20:30)
[2022-05-25] MEDS ORDERED: FUROSEMIDE 20 MG TAB PO SCH (09:00)
[2022-05-25 12:09] VITALS: BP 153/88
[2022-05-25] MEDS: LR 1,000 ML IV SCH (14:24)
[2022-05-25 16:09] VITALS: BP 168/85
[2022-05-25 20:00] VITALS: BP 174/90
[2022-05-25] MEDS: VITAMIN D 1,000 INTERNATIONAL UNITS TABLET PO SCH (20:31)
[2022-05-26] VITALS (7 sets, daily range): BP systolic 133–186; BP diastolic 70–92
[2022-05-26] MEDS: LR 1,000 ML IV SCH ×2 (04:15→14:35)
[2022-05-26] MEDS: INSULIN LISPRO (NovoLOG) PER UNIT SC SCH ×2 (05:42)
[2022-05-26 07:46] LABS: HEMOGLOBIN 12.1 g/dl (13.5-17.5); MEAN CORPUSCULAR HEMOGLOBIN 22.2 pg (27.0-33.0); MEAN CORPUSCULAR HGB CONC 30.3 g/dl (32.0-36.5); MEAN CORPUSCULAR VOLUME 73.5 fl (80.0-96.0); PLATELET COUNT, AUTOMATED 302 10^3/uL (150-450); RED BLOOD COUNT 5.44 10^6/uL (4.30-6.10); WHITE BLOOD COUNT 7.9 10^3/uL (4.0-10.0)
[2022-05-26 07:58] LABS: BLOOD UREA NITROGEN 19 MG/DL (7-18); CALCIUM LEVEL 9.1 MG/DL (8.8-10.2); CARBON DIOXIDE LEVEL 27 MEQ/L (21-32); CHLORIDE LEVEL 99 MEQ/L (98-107); CREATININE FOR GFR 1.21 MG/DL (0.70-1.30); GLOMERULAR FILTRATION RATE > 60.0 (>42); GLUCOSE, FASTING 89 MG/DL (70-100); POTASSIUM SERUM 4.5 MEQ/L (3.5-5.1); SODIUM LEVEL 132 MEQ/L (136-145)
[2022-05-26] MEDS: DOCUSATE SODIUM 100MG CAPSULE PO SCH ×2 (08:08→20:36)
[2022-05-26] MEDS: OMEPRAZOLE 20MG CAP PO SCH (08:08)
[2022-05-26] MEDS: oxyBUTYnin 5 MG TAB PO SCH ×2 (08:08→20:36)
[2022-05-26] MEDS: ASPIRIN 81 MG CHEW TABLET PO SCH (08:08)
[2022-05-26] MEDS: OYSTER SHELL CALCIUM 500 MG TAB PO SCH (08:08)
[2022-05-26] MEDS: LACTOBACILLUS ACIDOPHILUS CAP (BACID) PO SCH ×2 (08:08→17:52)
[2022-05-26] MEDS: BACLOFEN 10 MG TAB PO SCH ×2 (08:08→20:36)
[2022-05-26] MEDS: FLUTICASONE PROP 0.05% NASAL SPRAY 16 GM (FLONASE) NARES SCH (08:09)
[2022-05-26] MEDS: XARELTO 2.5 MG PO SCH ×2 (08:09→17:52)
[2022-05-26] MEDS: ASCORBIC ACID 500 MG TAB PO SCH (08:09)
[2022-05-26] MEDS: MIRALAX *UNIT DOSE* 17GM PACKET PO SCH (08:09)
[2022-05-26] MEDS: LACTIC ACID 12% LOTION 225 GM BTL TOP SCH (08:10)
[2022-05-26 09:50] LABS: FERRITIN 95 NG/ML (26-388); IRON (FE) 44 UG/DL (65-175); PERCENT SATURATION 15.5 % (19.7-50.0); TOTAL IRON BINDING CAPACITY 284 UG/DL (250-450)
[2022-05-26] MEDS ORDERED: FEXOFENADINE 60MG TAB PO PRN (10:30)
[2022-05-26] MEDS ORDERED: IRON SUCROSE 300 MG in NS 250 ML IV ONE (12:00)
[2022-05-26] MEDS: VITAMIN D 1,000 INTERNATIONAL UNITS TABLET PO SCH (20:36)
[2022-05-27] VITALS (7 sets, daily range): BP systolic 142–207; BP diastolic 73–109
[2022-05-27] MEDS: LR 1,000 ML IV SCH (00:40)
[2022-05-27 05:26] LABS: HEMATOCRIT 39.6 % (42.0-52.0); HEMOGLOBIN 12.4 g/dl (13.5-17.5); MEAN CORPUSCULAR HEMOGLOBIN 23.1 pg (27.0-33.0); MEAN CORPUSCULAR HGB CONC 31.3 g/dl (32.0-36.5); MEAN CORPUSCULAR VOLUME 73.7 fl (80.0-96.0); PLATELET COUNT, AUTOMATED 269 10^3/uL (150-450); RED BLOOD COUNT 5.37 10^6/uL (4.30-6.10); WHITE BLOOD COUNT 6.2 10^3/uL (4.0-10.0)
[2022-05-27 05:52] LABS: BLOOD UREA NITROGEN 16 MG/DL (7-18); CALCIUM LEVEL 9.1 MG/DL (8.8-10.2); CARBON DIOXIDE LEVEL 26 MEQ/L (21-32); CHLORIDE LEVEL 103 MEQ/L (98-107); GLOMERULAR FILTRATION RATE > 60.0 (>42); GLUCOSE, FASTING 122 MG/DL (70-100); POTASSIUM SERUM 4.4 MEQ/L (3.5-5.1); SODIUM LEVEL 133 MEQ/L (136-145)
[2022-05-27] MEDS: ATORVASTATIN 20 MG TAB PO SCH (08:51)
[2022-05-27] MEDS: DOCUSATE SODIUM 100MG CAPSULE PO SCH ×2 (08:51→20:37)
[2022-05-27] MEDS: ASPIRIN 81 MG CHEW TABLET PO SCH (08:51)
[2022-05-27] MEDS: LACTOBACILLUS ACIDOPHILUS CAP (BACID) PO SCH ×2 (08:51→17:25)
[2022-05-27] MEDS: ASCORBIC ACID 500 MG TAB PO SCH (08:51)
[2022-05-27] MEDS: OMEPRAZOLE 20MG CAP PO SCH (08:51)
[2022-05-27] MEDS: OYSTER SHELL CALCIUM 500 MG TAB PO SCH (08:52)
[2022-05-27] MEDS: MIRALAX *UNIT DOSE* 17GM PACKET PO SCH (08:52)
[2022-05-27] MEDS: oxyBUTYnin 5 MG TAB PO SCH ×2 (08:52→20:37)
[2022-05-27] MEDS: LACTIC ACID 12% LOTION 225 GM BTL TOP SCH (08:52)
[2022-05-27] MEDS: FLUTICASONE PROP 0.05% NASAL SPRAY 16 GM (FLONASE) NARES SCH (08:52)
[2022-05-27] MEDS: BACLOFEN 10 MG TAB PO SCH ×2 (08:52→20:36)
[2022-05-27] MEDS: XARELTO 2.5 MG PO SCH ×2 (08:53→17:26)
[2022-05-27] MEDS: VITAMIN D 1,000 INTERNATIONAL UNITS TABLET PO SCH (20:37)
[2022-05-27] MEDS ORDERED: LABETALOL 100MG/20ML VIAL IV STA (21:01)
[2022-05-28] VITALS (7 sets, daily range): BP systolic 125–186; BP diastolic 64–94
[2022-05-28 06:07] LABS: HEMATOCRIT 40.5 % (42.0-52.0); HEMOGLOBIN 12.3 g/dl (13.5-17.5); MEAN CORPUSCULAR HEMOGLOBIN 22.8 pg (27.0-33.0); MEAN CORPUSCULAR HGB CONC 30.4 g/dl (32.0-36.5); PLATELET COUNT, AUTOMATED 293 10^3/uL (150-450); WHITE BLOOD COUNT 6.3 10^3/uL (4.0-10.0)
[2022-05-28 06:35] LABS: BLOOD UREA NITROGEN 16 MG/DL (7-18); CALCIUM LEVEL 9.1 MG/DL (8.8-10.2); CARBON DIOXIDE LEVEL 25 MEQ/L (21-32); CHLORIDE LEVEL 98 MEQ/L (98-107); GLOMERULAR FILTRATION RATE > 60.0 (>42); GLUCOSE, FASTING 129 MG/DL (70-100); POTASSIUM SERUM 4.4 MEQ/L (3.5-5.1); SODIUM LEVEL 130 MEQ/L (136-145)
[2022-05-28] MEDS: ASCORBIC ACID 500 MG TAB PO SCH (08:07)
[2022-05-28] MEDS: MIRALAX *UNIT DOSE* 17GM PACKET PO SCH (08:07)
[2022-05-28] MEDS: DOCUSATE SODIUM 100MG CAPSULE PO SCH ×2 (08:07→21:02)
[2022-05-28] MEDS: XARELTO 2.5 MG PO SCH ×2 (08:07→18:05)
[2022-05-28] MEDS: LACTIC ACID 12% LOTION 225 GM BTL TOP SCH (08:07)
[2022-05-28] MEDS: ASPIRIN 81 MG CHEW TABLET PO SCH (08:07)
[2022-05-28] MEDS: BACLOFEN 10 MG TAB PO SCH ×2 (08:08→21:02)
[2022-05-28] MEDS: OYSTER SHELL CALCIUM 500 MG TAB PO SCH (08:08)
[2022-05-28] MEDS: LACTOBACILLUS ACIDOPHILUS CAP (BACID) PO SCH ×2 (08:08→18:05)
[2022-05-28] MEDS: OMEPRAZOLE 20MG CAP PO SCH (08:08)
[2022-05-28] MEDS: oxyBUTYnin 5 MG TAB PO SCH ×2 (08:08→21:01)
[2022-05-28] MEDS: FLUTICASONE PROP 0.05% NASAL SPRAY 16 GM (FLONASE) NARES SCH (08:09)
[2022-05-28] MEDS ORDERED: VALSARTAN 40MG TABLET (DIOVAN) PO ONE ×2 (17:10→20:00)
[2022-05-28] MEDS: VITAMIN D 1,000 INTERNATIONAL UNITS TABLET PO SCH (21:02)
[2022-05-29] VITALS: BP 148/72
[2022-05-29] MEDS ORDERED: LABETALOL 100MG/20ML VIAL IV PRN
[2022-05-29 04:00] VITALS: BP 160/92
[2022-05-29 06:25] LABS: HEMATOCRIT 38.9 % (42.0-52.0); HEMOGLOBIN 12.2 g/dl (13.5-17.5); MEAN CORPUSCULAR HEMOGLOBIN 23.1 pg (27.0-33.0); MEAN CORPUSCULAR HGB CONC 31.4 g/dl (32.0-36.5); MEAN CORPUSCULAR VOLUME 73.7 fl (80.0-96.0); PLATELET COUNT, AUTOMATED 323 10^3/uL (150-450); RED BLOOD COUNT 5.28 10^6/uL (4.30-6.10); WHITE BLOOD COUNT 6.2 10^3/uL (4.0-10.0)
[2022-05-29 07:24] LABS: BLOOD UREA NITROGEN 21 MG/DL (9-23); CALCIUM LEVEL 8.5 MG/DL (8.3-10.6); CARBON DIOXIDE LEVEL 25 MMOL/L (20-31); CHLORIDE LEVEL 93 MMOL/L (98-107); CREATININE FOR GFR 1.13 MG/DL (0.70-1.30); GLOMERULAR FILTRATION RATE > 60.0 (>42); GLUCOSE, FASTING 120 MG/DL (74-106); POTASSIUM SERUM 4.7 MMOL/L (3.5-5.1); SODIUM LEVEL 129 MMOL/L (136-145)
[2022-05-29] MEDS: XARELTO 2.5 MG PO SCH (08:00)
[2022-05-29] MEDS ORDERED: VALSARTAN 40MG TABLET (DIOVAN) PO SCH ×2 (09:00→12:00)
[2022-05-29] MEDS: FLUTICASONE PROP 0.05% NASAL SPRAY 16 GM (FLONASE) NARES SCH (09:58)
[2022-05-29] MEDS: MIRALAX *UNIT DOSE* 17GM PACKET PO SCH (09:59)
[2022-05-29] MEDS: ASCORBIC ACID 500 MG TAB PO SCH (09:59)
[2022-05-29] MEDS: DOCUSATE SODIUM 100MG CAPSULE PO SCH (09:59)
[2022-05-29] MEDS: oxyBUTYnin 5 MG TAB PO SCH (09:59)
[2022-05-29] MEDS: OMEPRAZOLE 20MG CAP PO SCH (10:00)
[2022-05-29] MEDS: OYSTER SHELL CALCIUM 500 MG TAB PO SCH (10:00)
[2022-05-29] MEDS: LACTOBACILLUS ACIDOPHILUS CAP (BACID) PO SCH (10:00)
[2022-05-29] MEDS: ATORVASTATIN 20 MG TAB PO SCH (10:00)
[2022-05-29] MEDS: ASPIRIN 81 MG CHEW TABLET PO SCH (10:00)
[2022-05-29] MEDS: BACLOFEN 10 MG TAB PO SCH (10:01)
[2022-05-29] MEDS: LACTIC ACID 12% LOTION 225 GM BTL TOP SCH (10:02)
[2022-05-29 11:48] VITALS: BP 145/74
[2022-05-29 12:37] VITALS: BP 145/74
[2022-05-29] MEDS ORDERED: DIOV40TA PO (12:37)
[2022-05-29] MEDS ORDERED: AMLO1TAB25 PO (12:37)
[2022-05-29] MEDS ORDERED: FERR325T18 PO (12:51)
[2022-05-29 13:31] LABS: OSMOLALITY SERUM 272 MOSM/KG (280-301)
[2022-05-29 15:34] LABS: OSMOLALITY URINE 552 MOSM/KG (50-1400)
[2022-05-29 16:05] LABS: SODIUM,RANDOM URINE 60 MMOL/L
[2022-05-30] MEDS ORDERED: FOSFOMYCIN TROMETHAMINE 3 GM POWDER PACKET (MONUROL) PO SCH (09:00)
== END 2022-05-29 15:54 | DRG 65 ==
LOC: M ED 14:58 → EDBD 14:58 → M ED INP 17:49 → ENRESERV 20:20 → M PCU 22:29
PROVIDERS: ADMIT Student in an Organized Health Care Education/Training Program; ATTEND Student in an Organized Health Care Education/Training Program
PROC: B246ZZZ Ultrasonography of Right and Left Heart (ICD-10-PCS; principal; 2022-05-26)
DX: I63.89 Other cerebral infarction (principal); E87.1 Hypo-osmolality and hyponatremia; K59.2 Neurogenic bowel, not elsewhere classified; I65.21 Occlusion and stenosis of right carotid artery; G35 Multiple sclerosis; I25.10 Atherosclerotic heart disease of native coronary artery without angina pectoris; Z95.5 Presence of coronary angioplasty implant and graft; N31.9 Neuromuscular dysfunction of bladder, unspecified; Z87.440 Personal history of urinary (tract) infections; Z79.2 Long term (current) use of antibiotics; E11.9 Type 2 diabetes mellitus without complications; G47.33 Obstructive sleep apnea (adult) (pediatric); I10 Essential (primary) hypertension; Z87.891 Personal history of nicotine dependence; E78.5 Hyperlipidemia, unspecified; E55.9 Vitamin D deficiency, unspecified; Z79.01 Long term (current) use of anticoagulants; K21.9 Gastro-esophageal reflux disease without esophagitis; Z79.82 Long term (current) use of aspirin; Z79.84 Long term (current) use of oral hypoglycemic drugs; Z79.899 Other long term (current) drug therapy; Z88.8 Allergy status to other drugs, medicaments and biological substances; R29.810 Facial weakness; D50.9 Iron deficiency anemia, unspecified; R13.10 Dysphagia, unspecified

== ENCOUNTER 2022-05-29 11:19 | Inpatient (IN) | payer MEDICARE ==
[~2022-05-29] VITALS: Ht 175.3 cm; Wt 82.6 kg
[~2022-05-29 11:19] MED LIST changes: +BACI1CAP PO
[2022-05-29] MEDS ORDERED: DIOV40TA PO (12:37)
[2022-05-29] MEDS ORDERED: AMLO1TAB25 PO (12:37)
[2022-05-29] MEDS ORDERED: FERR325T18 PO (12:51)
[2022-05-29] MEDS ORDERED: BISACODYL 5 MG TAB PO PRN (14:10)
[2022-05-29] MEDS ORDERED: FEXOFENADINE 60MG TAB PO PRN (14:10)
[2022-05-29] MEDS ORDERED: ACETAMINOPHEN TAB 650MG DOSE (2X325MG) PO PRN (14:10)
[2022-05-29] MEDS ORDERED: ENTER DRUG NAME HERE (PATIENT'S OWN MED) PO SCH (14:10)
[2022-05-29] MEDS ORDERED: BISACODYL 10 MG SUPP PR PRN (14:10)
[2022-05-29 16:15] VITALS: BP 154/82
[2022-05-29] MEDS: **hydrALAZINE HCL** 25 MG TAB PO SCH ×2 (18:08→23:54)
[2022-05-29] MEDS: LACTOBACILLUS ACIDOPHILUS CAP (BACID) PO SCH (18:08)
[2022-05-29] MEDS ORDERED: DEXTROSE 50% 50 ML SYRINGE IV PRN (18:25)
[2022-05-29] MEDS ORDERED: GLUCAGON INJ 1MG VIAL SC PRN (18:25)
[2022-05-29] MEDS ORDERED: GLUCOSE 4GM CHEW TABLET PO PRN (18:25)
[2022-05-29] MEDS: XARELTO 2.5 MG PO SCH (18:54)
[2022-05-29] MEDS: COMBIVENT RESPIMAT 100-20MCG INHALER 4GM INH SCH (19:40)
[2022-05-29 20:00] VITALS: BP 126/84
[2022-05-29] MEDS: INSULIN LISPRO (NovoLOG) PER UNIT SC SCH (21:00)
[2022-05-29] MEDS: FLUTICASONE PROP 0.05% NASAL SPRAY 16 GM (FLONASE) NARES SCH (21:08)
[2022-05-29] MEDS: BACLOFEN 10 MG TAB PO SCH (21:09)
[2022-05-29] MEDS: oxyBUTYnin 5 MG TAB PO SCH (21:09)
[2022-05-29] MEDS: DOCUSATE SODIUM 100MG CAPSULE PO SCH (21:09)
[2022-05-29] MEDS: VITAMIN D 1,000 INTERNATIONAL UNITS TABLET PO SCH (21:09)
[2022-05-29] MEDS: REMEDY PHYTOPLEX Z-GUARD PASTE 113GM TUBE (FROM STOREROOM PRODUCT) TOP SCH (21:10)
[2022-05-30] MEDS: **hydrALAZINE HCL** 25 MG TAB PO SCH ×3 (05:26→18:28)
[2022-05-30 05:38] LABS: BASO # 0.1 10^3/uL (0.0-0.2); BASO % 0.6 % (0.0-1.0); EOS # 0.2 10^3/uL (0.0-0.5); EOS % 2.8 % (0.0-3.0); HEMATOCRIT 39.7 % (42.0-52.0); HEMOGLOBIN 12.4 g/dl (13.5-17.5); LYMPH # 1.2 10^3/uL (1.5-5.0); MEAN CORPUSCULAR HEMOGLOBIN 22.8 pg (27.0-33.0); MEAN CORPUSCULAR HGB CONC 31.2 g/dl (32.0-36.5); MEAN CORPUSCULAR VOLUME 72.8 fl (80.0-96.0); MONO # 0.9 10^3/uL (0.0-0.8); NEUTROPHILS # 5.9 10^3/uL (1.5-8.5); NEUTROPHILS % 71.1 % (36.0-66.0); PLATELET COUNT, AUTOMATED 321 10^3/uL (150-450); RED BLOOD COUNT 5.45 10^6/uL (4.30-6.10); WHITE BLOOD COUNT 8.3 10^3/uL (4.0-10.0)
[2022-05-30 06:53] VITALS: BP 118/76
[2022-05-30 07:34] LABS: ALBUMIN 2.9 G/DL (3.2-5.2); ALKALINE PHOSPHATASE 208 U/L (46-116); ALT/SGPT 191 U/L (7.0-40); AST/SGOT 338 U/L (<34); BILIRUBIN,TOTAL 0.6 MG/DL (0.3-1.2); BLOOD UREA NITROGEN 27 MG/DL (9-23); CALCIUM LEVEL 9.2 MG/DL (8.3-10.6); CARBON DIOXIDE LEVEL 21 MMOL/L (20-31); CHLORIDE LEVEL 97 MMOL/L (98-107); CREATININE FOR GFR 1.12 MG/DL (0.70-1.30); GLOMERULAR FILTRATION RATE > 60.0 (>42); GLUCOSE, FASTING 126 MG/DL (74-106); POTASSIUM SERUM 4.6 MMOL/L (3.5-5.1); SODIUM LEVEL 129 MMOL/L (136-145)
[2022-05-30] MEDS: FERROUS SULFATE 325MG TAB PO SCH (08:44)
[2022-05-30] MEDS: OYSTER SHELL CALCIUM 500 MG TAB PO SCH (08:44)
[2022-05-30] MEDS: ATORVASTATIN 20 MG TAB PO SCH (08:44)
[2022-05-30] MEDS: oxyBUTYnin 5 MG TAB PO SCH ×2 (08:44→20:22)
[2022-05-30] MEDS: DOCUSATE SODIUM 100MG CAPSULE PO SCH ×2 (08:44→20:22)
[2022-05-30] MEDS: ASCORBIC ACID 500 MG TAB PO SCH (08:44)
[2022-05-30] MEDS: OMEPRAZOLE 20MG CAP PO SCH (08:44)
[2022-05-30] MEDS: VALSARTAN 80 MG TAB (DIOVAN) PO SCH (08:45)
[2022-05-30] MEDS: LACTOBACILLUS ACIDOPHILUS CAP (BACID) PO SCH ×2 (08:45→18:28)
[2022-05-30] MEDS: BACLOFEN 10 MG TAB PO SCH ×2 (08:45→20:22)
[2022-05-30] MEDS: MIRALAX *UNIT DOSE* 17GM PACKET PO SCH (08:46)
[2022-05-30] MEDS: FUROSEMIDE 20 MG TAB PO SCH (08:46)
[2022-05-30] MEDS: LACTIC ACID 12% LOTION 225 GM BTL TOP SCH (08:47)
[2022-05-30] MEDS: XARELTO 2.5 MG PO SCH ×2 (08:47→18:28)
[2022-05-30] MEDS: INSULIN LISPRO (NovoLOG) PER UNIT SC SCH ×4 (08:47→20:21)
[2022-05-30] MEDS: FLUTICASONE PROP 0.05% NASAL SPRAY 16 GM (FLONASE) NARES SCH ×2 (08:48→20:23)
[2022-05-30] MEDS ORDERED: FOSFOMYCIN TROMETHAMINE 3 GM POWDER PACKET (MONUROL) PO SCH (09:00)
[2022-05-30] MEDS: REMEDY PHYTOPLEX Z-GUARD PASTE 113GM TUBE (FROM STOREROOM PRODUCT) TOP SCH ×3 (09:00→20:22)
[2022-05-30] MEDS: COMBIVENT RESPIMAT 100-20MCG INHALER 4GM INH SCH ×3 (09:03→20:47)
[2022-05-30 10:25] LABS: OSMOLALITY SERUM 276 MOSM/KG (280-301)
[2022-05-30 12:48] LABS: BILIRUBIN,DIRECT 0.2 MG/DL (<0.4); HEPATITIS B CORE ANTIBODY IGM NEGATIVE (NEGATIVE); HEPATITIS B SURFACE ANTIGEN NEGATIVE (NEGATIVE); HEPATITIS C VIRUS ABY INDEX 0.1 INDEX (<0.8)
[2022-05-30 14:00] VITALS: BP 122/63
[2022-05-30] MEDS ORDERED: PILL CUTTER 1 EACH XX PRN (15:50)
[2022-05-30 17:57] LABS: OSMOLALITY URINE 555 MOSM/KG (50-1400)
[2022-05-30 18:52] LABS: SODIUM,RANDOM URINE 96 MMOL/L
[2022-05-30 19:57] VITALS: BP 132/66
[2022-05-30] MEDS: ASPIRIN 81MG ENTERIC TABLET PO SCH (20:22)
[2022-05-30] MEDS: VITAMIN D 1,000 INTERNATIONAL UNITS TABLET PO SCH (20:22)
[2022-05-31] MEDS: **hydrALAZINE HCL** 25 MG TAB PO SCH ×5 (00:05→23:59)
[2022-05-31 05:17] VITALS: BP 139/69
[2022-05-31 07:31] LABS: BLOOD UREA NITROGEN 29 MG/DL (9-23); CALCIUM LEVEL 8.9 MG/DL (8.3-10.6); CARBON DIOXIDE LEVEL 23 MMOL/L (20-31); CHLORIDE LEVEL 99 MMOL/L (98-107); CREATININE FOR GFR 0.95 MG/DL (0.70-1.30); GLOMERULAR FILTRATION RATE > 60.0 (>42); GLUCOSE, FASTING 159 MG/DL (74-106); MAGNESIUM LEVEL 1.5 MG/DL (1.8-2.4); PHOSPHORUS LEVEL 2.9 MG/DL (2.4-5.1); POTASSIUM SERUM 4.1 MMOL/L (3.5-5.1); SODIUM LEVEL 131 MMOL/L (136-145)
[2022-05-31] MEDS: FUROSEMIDE 20 MG TAB PO SCH (08:33)
[2022-05-31] MEDS: DOCUSATE SODIUM 100MG CAPSULE PO SCH ×2 (08:37→20:37)
[2022-05-31] MEDS: VALSARTAN 80 MG TAB (DIOVAN) PO SCH (08:42)
[2022-05-31] MEDS: oxyBUTYnin 5 MG TAB PO SCH ×2 (08:42→20:37)
[2022-05-31] MEDS: LACTOBACILLUS ACIDOPHILUS CAP (BACID) PO SCH ×2 (08:43→17:04)
[2022-05-31] MEDS: ASCORBIC ACID 500 MG TAB PO SCH (08:43)
[2022-05-31] MEDS: INSULIN LISPRO (NovoLOG) PER UNIT SC SCH ×4 (08:43→20:38)
[2022-05-31] MEDS: FERROUS SULFATE 325MG TAB PO SCH (08:44)
[2022-05-31] MEDS: OMEPRAZOLE 20MG CAP PO SCH (08:44)
[2022-05-31] MEDS: BACLOFEN 10 MG TAB PO SCH ×2 (08:44→20:38)
[2022-05-31] MEDS ORDERED: MAG SULF 1GM/100ML (MAG RUN) 1 GM in IV 1 EA IV ONE (08:45)
[2022-05-31] MEDS: CitaloPRAM (CeleXA) 10 MG TABLET PO SCH (08:46)
[2022-05-31] MEDS: COMBIVENT RESPIMAT 100-20MCG INHALER 4GM INH SCH ×3 (08:46→20:10)
[2022-05-31] MEDS: MIRALAX *UNIT DOSE* 17GM PACKET PO SCH (08:47)
[2022-05-31] MEDS: XARELTO 2.5 MG PO SCH ×2 (08:47→17:04)
[2022-05-31] MEDS: FLUTICASONE PROP 0.05% NASAL SPRAY 16 GM (FLONASE) NARES SCH ×2 (09:00→20:38)
[2022-05-31] MEDS: OYSTER SHELL CALCIUM 500 MG TAB PO SCH (09:08)
[2022-05-31] MEDS: MAGNESIUM OXIDE 400MG TAB (MAG-OX) PO SCH ×2 (09:08→20:37)
[2022-05-31] MEDS: REMEDY PHYTOPLEX Z-GUARD PASTE 113GM TUBE (FROM STOREROOM PRODUCT) TOP SCH ×3 (09:09→20:39)
[2022-05-31] MEDS: LACTIC ACID 12% LOTION 225 GM BTL TOP SCH (09:10)
[2022-05-31 12:00] VITALS: BP 120/72
[2022-05-31 14:00] VITALS: BP 120/66
[2022-05-31] MEDS: FEXOFENADINE 60MG TAB PO SCH (17:03)
[2022-05-31 20:00] VITALS: BP 134/86
[2022-05-31] MEDS: VITAMIN D 1,000 INTERNATIONAL UNITS TABLET PO SCH (20:37)
[2022-05-31] MEDS: ASPIRIN 81MG ENTERIC TABLET PO SCH (20:37)
[2022-06-01] VITALS (7 sets, daily range): BP systolic 107–145; BP diastolic 62–76
[2022-06-01] MEDS: **hydrALAZINE HCL** 25 MG TAB PO SCH ×4 (05:25→23:55)
[2022-06-01] MEDS: COMBIVENT RESPIMAT 100-20MCG INHALER 4GM INH SCH ×3 (08:00→20:29)
[2022-06-01] MEDS: MIRALAX *UNIT DOSE* 17GM PACKET PO SCH (08:59)
[2022-06-01] MEDS: XARELTO 2.5 MG PO SCH ×2 (08:59→17:05)
[2022-06-01] MEDS: OMEPRAZOLE 20MG CAP PO SCH (08:59)
[2022-06-01] MEDS: VALSARTAN 80 MG TAB (DIOVAN) PO SCH (08:59)
[2022-06-01] MEDS: FEXOFENADINE 60MG TAB PO SCH (09:00)
[2022-06-01] MEDS: ASCORBIC ACID 500 MG TAB PO SCH (09:00)
[2022-06-01] MEDS: oxyBUTYnin 5 MG TAB PO SCH ×2 (09:00→20:21)
[2022-06-01] MEDS: DOCUSATE SODIUM 100MG CAPSULE PO SCH ×2 (09:00→20:21)
[2022-06-01] MEDS: FERROUS SULFATE 325MG TAB PO SCH (09:00)
[2022-06-01] MEDS: REMEDY PHYTOPLEX Z-GUARD PASTE 113GM TUBE (FROM STOREROOM PRODUCT) TOP SCH ×3 (09:00→20:22)
[2022-06-01] MEDS: LACTOBACILLUS ACIDOPHILUS CAP (BACID) PO SCH ×2 (09:01→17:04)
[2022-06-01] MEDS: OYSTER SHELL CALCIUM 500 MG TAB PO SCH (09:01)
[2022-06-01] MEDS: FUROSEMIDE 20 MG TAB PO SCH (09:01)
[2022-06-01] MEDS: CitaloPRAM (CeleXA) 10 MG TABLET PO SCH (09:01)
[2022-06-01] MEDS: MAGNESIUM OXIDE 400MG TAB (MAG-OX) PO SCH ×2 (09:01→20:21)
[2022-06-01] MEDS: INSULIN LISPRO (NovoLOG) PER UNIT SC SCH ×4 (09:02→20:01)
[2022-06-01] MEDS: BACLOFEN 10 MG TAB PO SCH ×2 (09:02→20:21)
[2022-06-01] MEDS: LACTIC ACID 12% LOTION 225 GM BTL TOP SCH (09:07)
[2022-06-01] MEDS: FLUTICASONE PROP 0.05% NASAL SPRAY 16 GM (FLONASE) NARES SCH ×2 (09:07→20:22)
[2022-06-01] MEDS ORDERED: HOME MED LIST COMPLETE! XX SCH (15:25)
[2022-06-01] MEDS: VITAMIN D 1,000 INTERNATIONAL UNITS TABLET PO SCH (20:21)
[2022-06-01] MEDS: ASPIRIN 81MG ENTERIC TABLET PO SCH (20:21)
[2022-06-02] MEDS: **hydrALAZINE HCL** 25 MG TAB PO SCH ×4 (05:39→23:58)
[2022-06-02 06:00] VITALS: BP 108/66
[2022-06-02] MEDS: VALSARTAN 80 MG TAB (DIOVAN) PO SCH (07:26)
[2022-06-02] MEDS: FUROSEMIDE 20 MG TAB PO SCH (07:26)
[2022-06-02] MEDS: DOCUSATE SODIUM 100MG CAPSULE PO SCH ×2 (07:53→20:54)
[2022-06-02] MEDS: oxyBUTYnin 5 MG TAB PO SCH ×2 (07:53→20:54)
[2022-06-02] MEDS: INSULIN LISPRO (NovoLOG) PER UNIT SC SCH ×4 (07:53→21:00)
[2022-06-02] MEDS: OMEPRAZOLE 20MG CAP PO SCH (07:54)
[2022-06-02] MEDS: MAGNESIUM OXIDE 400MG TAB (MAG-OX) PO SCH ×2 (07:54→20:54)
[2022-06-02] MEDS: BACLOFEN 10 MG TAB PO SCH ×2 (07:54→20:54)
[2022-06-02] MEDS: CitaloPRAM (CeleXA) 10 MG TABLET PO SCH (07:54)
[2022-06-02] MEDS: LACTOBACILLUS ACIDOPHILUS CAP (BACID) PO SCH ×2 (07:55→17:07)
[2022-06-02] MEDS: ASCORBIC ACID 500 MG TAB PO SCH (07:55)
[2022-06-02] MEDS: FLUTICASONE PROP 0.05% NASAL SPRAY 16 GM (FLONASE) NARES SCH ×2 (07:55→20:55)
[2022-06-02] MEDS: FEXOFENADINE 60MG TAB PO SCH (07:55)
[2022-06-02] MEDS: OYSTER SHELL CALCIUM 500 MG TAB PO SCH (07:55)
[2022-06-02] MEDS: FERROUS SULFATE 325MG TAB PO SCH (07:55)
[2022-06-02] MEDS: REMEDY PHYTOPLEX Z-GUARD PASTE 113GM TUBE (FROM STOREROOM PRODUCT) TOP SCH ×3 (07:56→20:55)
[2022-06-02] MEDS: MIRALAX *UNIT DOSE* 17GM PACKET PO SCH (07:56)
[2022-06-02] MEDS: LACTIC ACID 12% LOTION 225 GM BTL TOP SCH (07:56)
[2022-06-02] MEDS: XARELTO 2.5 MG PO SCH ×2 (07:56→17:07)
[2022-06-02] MEDS: COMBIVENT RESPIMAT 100-20MCG INHALER 4GM INH SCH ×3 (08:00→20:19)
[2022-06-02 11:38] VITALS: BP 127/67
[2022-06-02] MEDS ORDERED: FUROSEMIDE 20 MG TAB PO ONE (12:15)
[2022-06-02 14:36] VITALS: BP 142/56
[2022-06-02 20:00] VITALS: BP 138/82
[2022-06-02] MEDS: VITAMIN D 1,000 INTERNATIONAL UNITS TABLET PO SCH (20:54)
[2022-06-02] MEDS: ASPIRIN 81MG ENTERIC TABLET PO SCH (20:54)
[2022-06-03] MEDS: **hydrALAZINE HCL** 25 MG TAB PO SCH ×4 (05:19→18:42)
[2022-06-03 05:46] LABS: BASO % 0.6 % (0.0-1.0); EOS # 0.1 10^3/uL (0.0-0.5); EOS % 2.4 % (0.0-3.0); HEMATOCRIT 37.3 % (42.0-52.0); HEMOGLOBIN 11.8 g/dl (13.5-17.5); LYMPH # 0.7 10^3/uL (1.5-5.0); LYMPH % 12.5 % (24.0-44.0); MEAN CORPUSCULAR HEMOGLOBIN 23.4 pg (27.0-33.0); MEAN CORPUSCULAR HGB CONC 31.6 g/dl (32.0-36.5); MONO # 0.5 10^3/uL (0.0-0.8); MONO % 9.8 % (2.0-8.0); NEUTROPHILS % 74.1 % (36.0-66.0); PLATELET COUNT, AUTOMATED 325 10^3/uL (150-450); RED BLOOD COUNT 5.04 10^6/uL (4.30-6.10); WHITE BLOOD COUNT 5.4 10^3/uL (4.0-10.0)
[2022-06-03 06:22] LABS: BLOOD UREA NITROGEN 23 MG/DL (9-23); CALCIUM LEVEL 8.2 MG/DL (8.3-10.6); CARBON DIOXIDE LEVEL 24 MMOL/L (20-31); CHLORIDE LEVEL 97 MMOL/L (98-107); CREATININE FOR GFR 0.87 MG/DL (0.70-1.30); GLOMERULAR FILTRATION RATE > 60.0 (>42); GLUCOSE, FASTING 140 MG/DL (74-106); MAGNESIUM LEVEL 1.6 MG/DL (1.8-2.4); POTASSIUM SERUM 4.5 MMOL/L (3.5-5.1); SODIUM LEVEL 128 MMOL/L (136-145)
[2022-06-03 07:00] VITALS: BP 138/76
[2022-06-03] MEDS: COMBIVENT RESPIMAT 100-20MCG INHALER 4GM INH SCH ×3 (07:04→20:10)
[2022-06-03] MEDS: MIRALAX *UNIT DOSE* 17GM PACKET PO SCH (08:29)
[2022-06-03] MEDS: OYSTER SHELL CALCIUM 500 MG TAB PO SCH (08:29)
[2022-06-03] MEDS: CitaloPRAM (CeleXA) 10 MG TABLET PO SCH (08:30)
[2022-06-03] MEDS: FERROUS SULFATE 325MG TAB PO SCH (08:30)
[2022-06-03] MEDS: ASCORBIC ACID 500 MG TAB PO SCH (08:30)
[2022-06-03] MEDS: DOCUSATE SODIUM 100MG CAPSULE PO SCH ×2 (08:30→20:28)
[2022-06-03] MEDS: FEXOFENADINE 60MG TAB PO SCH (08:30)
[2022-06-03] MEDS: INSULIN LISPRO (NovoLOG) PER UNIT SC SCH ×4 (08:30→20:27)
[2022-06-03] MEDS: OMEPRAZOLE 20MG CAP PO SCH (08:31)
[2022-06-03] MEDS: ATORVASTATIN 20 MG TAB PO SCH (08:31)
[2022-06-03] MEDS: BACLOFEN 10 MG TAB PO SCH ×2 (08:31→20:29)
[2022-06-03] MEDS: LACTOBACILLUS ACIDOPHILUS CAP (BACID) PO SCH ×2 (08:31→18:42)
[2022-06-03] MEDS: FUROSEMIDE 40 MG TAB PO SCH (08:31)
[2022-06-03] MEDS: MAGNESIUM OXIDE 400MG TAB (MAG-OX) PO SCH ×2 (08:31→20:28)
[2022-06-03] MEDS: XARELTO 2.5 MG PO SCH ×2 (08:32→18:43)
[2022-06-03] MEDS: VALSARTAN 80 MG TAB (DIOVAN) PO SCH (08:32)
[2022-06-03] MEDS: oxyBUTYnin 5 MG TAB PO SCH ×2 (08:32→20:28)
[2022-06-03] MEDS: FLUTICASONE PROP 0.05% NASAL SPRAY 16 GM (FLONASE) NARES SCH ×2 (08:33→20:29)
[2022-06-03] MEDS: LACTIC ACID 12% LOTION 225 GM BTL TOP SCH (08:33)
[2022-06-03] MEDS: REMEDY PHYTOPLEX Z-GUARD PASTE 113GM TUBE (FROM STOREROOM PRODUCT) TOP SCH ×3 (08:34→20:30)
[2022-06-03] MEDS: MAG SULF 1GM/100ML (MAG RUN) 1 GM in IV 1 EA IV SCH ×2 (12:54→13:59)
[2022-06-03 14:00] VITALS: BP 119/66
[2022-06-03 20:00] VITALS: BP 146/78
[2022-06-03] MEDS: VITAMIN D 1,000 INTERNATIONAL UNITS TABLET PO SCH (20:28)
[2022-06-03] MEDS: ASPIRIN 81MG ENTERIC TABLET PO SCH (20:29)
[2022-06-04] VITALS: BP 120/69
[2022-06-04] MEDS: **hydrALAZINE HCL** 25 MG TAB PO SCH ×5 (00:26→21:33)
[2022-06-04 06:00] VITALS: BP 147/81
[2022-06-04] MEDS: COMBIVENT RESPIMAT 100-20MCG INHALER 4GM INH SCH ×3 (08:00→20:30)
[2022-06-04 08:01] LABS: BLOOD UREA NITROGEN 25 MG/DL (9-23); CALCIUM LEVEL 8.4 MG/DL (8.3-10.6); CARBON DIOXIDE LEVEL 22 MMOL/L (20-31); CHLORIDE LEVEL 94 MMOL/L (98-107); CREATININE FOR GFR 0.88 MG/DL (0.70-1.30); GLOMERULAR FILTRATION RATE > 60.0 (>42); GLUCOSE, FASTING 154 MG/DL (74-106); POTASSIUM SERUM 4.7 MMOL/L (3.5-5.1); SODIUM LEVEL 127 MMOL/L (136-145)
[2022-06-04] MEDS: OYSTER SHELL CALCIUM 500 MG TAB PO SCH (09:57)
[2022-06-04] MEDS: OMEPRAZOLE 20MG CAP PO SCH (09:57)
[2022-06-04] MEDS: oxyBUTYnin 5 MG TAB PO SCH ×2 (09:57→21:32)
[2022-06-04] MEDS: FUROSEMIDE 40 MG TAB PO SCH (09:59)
[2022-06-04] MEDS: VALSARTAN 80 MG TAB (DIOVAN) PO SCH (10:00)
[2022-06-04] MEDS: LACTOBACILLUS ACIDOPHILUS CAP (BACID) PO SCH ×2 (10:00→18:04)
[2022-06-04] MEDS: ATORVASTATIN 20 MG TAB PO SCH (10:01)
[2022-06-04] MEDS: DOCUSATE SODIUM 100MG CAPSULE PO SCH ×2 (10:01→21:32)
[2022-06-04] MEDS: BACLOFEN 10 MG TAB PO SCH ×2 (10:01→21:33)
[2022-06-04] MEDS: FERROUS SULFATE 325MG TAB PO SCH (10:01)
[2022-06-04] MEDS: FEXOFENADINE 60MG TAB PO SCH (10:01)
[2022-06-04] MEDS: CitaloPRAM (CeleXA) 10 MG TABLET PO SCH (10:02)
[2022-06-04] MEDS: ASCORBIC ACID 500 MG TAB PO SCH (10:02)
[2022-06-04] MEDS: MIRALAX *UNIT DOSE* 17GM PACKET PO SCH (10:03)
[2022-06-04] MEDS: MAGNESIUM OXIDE 400MG TAB (MAG-OX) PO SCH ×2 (10:03→21:34)
[2022-06-04] MEDS: XARELTO 2.5 MG PO SCH ×2 (10:04→18:05)
[2022-06-04] MEDS: FLUTICASONE PROP 0.05% NASAL SPRAY 16 GM (FLONASE) NARES SCH ×2 (10:04→21:34)
[2022-06-04] MEDS: INSULIN LISPRO (NovoLOG) PER UNIT SC SCH ×4 (10:05→21:00)
[2022-06-04] MEDS: LACTIC ACID 12% LOTION 225 GM BTL TOP SCH (10:06)
[2022-06-04] MEDS: REMEDY PHYTOPLEX Z-GUARD PASTE 113GM TUBE (FROM STOREROOM PRODUCT) TOP SCH ×3 (10:20→21:35)
[2022-06-04] MEDS ORDERED: SODIUM CHLORIDE 1 GM TAB PO ONE (10:35)
[2022-06-04] MEDS ORDERED: TOLVAPTAN 7.5 MG HALF-TAB PO ONE (12:15)
[2022-06-04 14:00] VITALS: BP 142/78
[2022-06-04 20:00] VITALS: BP 160/83
[2022-06-04] MEDS: ASPIRIN 81MG ENTERIC TABLET PO SCH (21:32)
[2022-06-04] MEDS: VITAMIN D 1,000 INTERNATIONAL UNITS TABLET PO SCH (21:33)
[2022-06-05 06:00] VITALS: BP 142/56
[2022-06-05 06:39] LABS: BASO % 0.7 % (0.0-1.0); EOS # 0.1 10^3/uL (0.0-0.5); EOS % 1.9 % (0.0-3.0); HEMATOCRIT 36.4 % (42.0-52.0); HEMOGLOBIN 11.4 g/dl (13.5-17.5); LYMPH # 0.8 10^3/uL (1.5-5.0); LYMPH % 14.7 % (24.0-44.0); MEAN CORPUSCULAR HEMOGLOBIN 23.6 pg (27.0-33.0); MEAN CORPUSCULAR HGB CONC 31.3 g/dl (32.0-36.5); MEAN CORPUSCULAR VOLUME 75.2 fl (80.0-96.0); MONO # 0.4 10^3/uL (0.0-0.8); MONO % 7.2 % (2.0-8.0); NEUTROPHILS # 4.3 10^3/uL (1.5-8.5); PLATELET COUNT, AUTOMATED 361 10^3/uL (150-450); RED BLOOD COUNT 4.84 10^6/uL (4.30-6.10); WHITE BLOOD COUNT 5.7 10^3/uL (4.0-10.0)
[2022-06-05] MEDS: COMBIVENT RESPIMAT 100-20MCG INHALER 4GM INH SCH (07:26)
[2022-06-05 07:31] LABS: BLOOD UREA NITROGEN 27 MG/DL (9-23); CALCIUM LEVEL 8.6 MG/DL (8.3-10.6); CARBON DIOXIDE LEVEL 25 MMOL/L (20-31); CHLORIDE LEVEL 101 MMOL/L (98-107); CREATININE FOR GFR 1.06 MG/DL (0.70-1.30); GLOMERULAR FILTRATION RATE > 60.0 (>42); GLUCOSE, FASTING 136 MG/DL (74-106); POTASSIUM SERUM 4.6 MMOL/L (3.5-5.1); SODIUM LEVEL 135 MMOL/L (136-145)
[2022-06-05] MEDS ORDERED: MAGN400T2 PO (08:15)
[2022-06-05] MEDS ORDERED: HYDR25TA PO (08:15)
[2022-06-05] MEDS ORDERED: FURO40TA2 PO (08:15)
[2022-06-05] MEDS ORDERED: CELE10TA PO (08:15)
[2022-06-05] MEDS: INSULIN LISPRO (NovoLOG) PER UNIT SC SCH (08:54)
[2022-06-05] MEDS: FEXOFENADINE 60MG TAB PO SCH (08:54)
[2022-06-05] MEDS: LACTOBACILLUS ACIDOPHILUS CAP (BACID) PO SCH (08:55)
[2022-06-05] MEDS: DOCUSATE SODIUM 100MG CAPSULE PO SCH (08:55)
[2022-06-05] MEDS: VALSARTAN 80 MG TAB (DIOVAN) PO SCH (08:55)
[2022-06-05 08:56] VITALS: BP 164/80
[2022-06-05] MEDS: **hydrALAZINE HCL** 25 MG TAB PO SCH (08:56)
[2022-06-05] MEDS: OYSTER SHELL CALCIUM 500 MG TAB PO SCH (08:56)
[2022-06-05] MEDS: ASCORBIC ACID 500 MG TAB PO SCH (08:56)
[2022-06-05] MEDS: MIRALAX *UNIT DOSE* 17GM PACKET PO SCH (08:57)
[2022-06-05] MEDS: CitaloPRAM (CeleXA) 10 MG TABLET PO SCH (08:57)
[2022-06-05] MEDS: oxyBUTYnin 5 MG TAB PO SCH (08:57)
[2022-06-05] MEDS: OMEPRAZOLE 20MG CAP PO SCH (08:57)
[2022-06-05] MEDS: BACLOFEN 10 MG TAB PO SCH (08:57)
[2022-06-05] MEDS: FERROUS SULFATE 325MG TAB PO SCH (08:57)
[2022-06-05] MEDS: MAGNESIUM OXIDE 400MG TAB (MAG-OX) PO SCH (08:57)
[2022-06-05] MEDS: XARELTO 2.5 MG PO SCH (08:58)
[2022-06-05] MEDS: FLUTICASONE PROP 0.05% NASAL SPRAY 16 GM (FLONASE) NARES SCH (08:58)
[2022-06-05] MEDS: LACTIC ACID 12% LOTION 225 GM BTL TOP SCH (08:59)
[2022-06-05] MEDS ORDERED: FUROSEMIDE 40 MG TAB PO SCH (09:00)
[2022-06-05] MEDS: REMEDY PHYTOPLEX Z-GUARD PASTE 113GM TUBE (FROM STOREROOM PRODUCT) TOP SCH (09:00)
[2022-06-05] MEDS ORDERED: VALS1TAB66 PO (13:51)
[2022-06-05] MEDS ORDERED: ALLE1TAB23 PO (13:51)
[2022-06-05] MEDS ORDERED: AMLO10TA PO (13:51)
[2022-06-05] MEDS ORDERED: FERR325T3 PO (13:51)
== END 2022-06-05 12:05 | disposition home or self-care (01) | DRG 948 ==
LOC: M PM&R 16:00
PROVIDERS: ADMIT Physical Medicine & Rehabilitation; ATTEND Physical Medicine & Rehabilitation
DX: R53.1 Weakness (principal); K59.2 Neurogenic bowel, not elsewhere classified; I50.32 Chronic diastolic (congestive) heart failure; E87.1 Hypo-osmolality and hyponatremia; I65.21 Occlusion and stenosis of right carotid artery; G35 Multiple sclerosis; I25.10 Atherosclerotic heart disease of native coronary artery without angina pectoris; Z95.5 Presence of coronary angioplasty implant and graft; N31.9 Neuromuscular dysfunction of bladder, unspecified; Z87.440 Personal history of urinary (tract) infections; Z79.2 Long term (current) use of antibiotics; E11.9 Type 2 diabetes mellitus without complications; G47.33 Obstructive sleep apnea (adult) (pediatric); I11.0 Hypertensive heart disease with heart failure; E78.5 Hyperlipidemia, unspecified; K21.9 Gastro-esophageal reflux disease without esophagitis; R13.10 Dysphagia, unspecified; I25.2 Old myocardial infarction; Z79.01 Long term (current) use of anticoagulants; I71.40 Abdominal aortic aneurysm, without rupture, unspecified; Z74.09 Other reduced mobility; Z74.1 Need for assistance with personal care; D50.9 Iron deficiency anemia, unspecified; Z90.79 Acquired absence of other genital organ(s); Z87.891 Personal history of nicotine dependence; Z79.82 Long term (current) use of aspirin; Z79.84 Long term (current) use of oral hypoglycemic drugs; Z79.899 Other long term (current) drug therapy; Z88.8 Allergy status to other drugs, medicaments and biological substances; D32.9 Benign neoplasm of meninges, unspecified; Z96.0 Presence of urogenital implants; R74.01 Elevation of levels of liver transaminase levels; E55.9 Vitamin D deficiency, unspecified

== ENCOUNTER → 2022-06-20 | Outpatient (REF) | payer MEDICARE ==
[~2022-06-20] MED LIST changes: +ALLE1TAB23 PO; +AMLO10TA PO; +AMLO1TAB25 PO; +CELE10TA PO; +DIOV40TA PO; +FERR325T18 PO; +FERR325T3 PO; +FURO40TA2 PO; +HYDR25TA PO; +MAGN400T2 PO; -SPORANOX 2 CAPS BID; +SPORANOX {null, 2 CAPS BID}; +VALS1TAB66 PO
[2022-06-20 18:05] LABS: MAGNESIUM LEVEL 1.9 MG/DL (1.8-2.4)
[2022-06-20 18:07] LABS: ALBUMIN 3.4 G/DL (3.2-5.2); ALKALINE PHOSPHATASE 191 U/L (46-116); ALT/SGPT 71 U/L (7.0-40); AST/SGOT 57 U/L (<34); BILIRUBIN,TOTAL 0.3 MG/DL (0.3-1.2); BLOOD UREA NITROGEN 58 MG/DL (9-23); CALCIUM LEVEL 9.3 MG/DL (8.3-10.6); CARBON DIOXIDE LEVEL 28 MMOL/L (20-31); CHLORIDE LEVEL 100 MMOL/L (98-107); CREATININE FOR GFR 1.05 MG/DL (0.70-1.30); GLOMERULAR FILTRATION RATE > 60.0 (>42); GLUCOSE, FASTING 146 MG/DL (74-106); POTASSIUM SERUM 4.7 MMOL/L (3.5-5.1); SODIUM LEVEL 136 MMOL/L (136-145); TOTAL PROTEIN 8.4 G/DL (5.7-8.2)
== END ==
LOC: M SFHCADAM 11:51
PROVIDERS: ATTEND Physician Assistant Medical
DX: I11.0 Hypertensive heart disease with heart failure (principal); E83.42 Hypomagnesemia

== ENCOUNTER 2022-07-01 04:44 | Inpatient (IN) | payer MEDICARE ==
[~2022-07-01] VITALS: Ht 177.8 cm; Wt 82.5 kg
[2022-07-01 05:39] LABS: ABG BASE EXCESS 4.2 (-2.0-2.0); ABG HCO3 28.9 MEQ/L (22.0-26.0); ABG O2 SATURATION 94.4 % (95.0-99.0); ABG PARTIAL PRESSURE CO2 43.8 mmHg (35.0-45.0); ABG PARTIAL PRESSURE O2 72.7 mmHg (75.0-100.0); ABG STANDARD HCO3 28.2 MEQ/L (22.0-26.0); ABG TOTAL CO2 30.3 MEQ/L (23.0-31.0); ABG pH (ARTERIAL) 7.438 UNITS (7.350-7.450)
[2022-07-01 05:45] LABS: BASO % 0.3 % (0.0-1.0); EOS # 0.1 10^3/uL (0.0-0.5); EOS % 0.9 % (0.0-3.0); HEMATOCRIT 39.7 % (42.0-52.0); HEMOGLOBIN 12.4 g/dl (13.5-17.5); LYMPH # 0.7 10^3/uL (1.5-5.0); LYMPH % 10.2 % (24.0-44.0); MEAN CORPUSCULAR HEMOGLOBIN 24.7 pg (27.0-33.0); MEAN CORPUSCULAR HGB CONC 31.2 g/dl (32.0-36.5); MEAN CORPUSCULAR VOLUME 78.9 fl (80.0-96.0); MONO # 0.3 10^3/uL (0.0-0.8); MONO % 4.8 % (2.0-8.0); NEUTROPHILS # 5.4 10^3/uL (1.5-8.5); NEUTROPHILS % 83.5 % (36.0-66.0); PLATELET COUNT, AUTOMATED 157 10^3/uL (150-450); RED BLOOD COUNT 5.03 10^6/uL (4.30-6.10); WHITE BLOOD COUNT 6.4 10^3/uL (4.0-10.0)
[2022-07-01] MEDS ORDERED: IPRATROPIUM 0.5MG/ALBUTEROL 2.5MG INH SOL UD 3ML (DUONEB) NEB ONE (06:05)
[2022-07-01 06:12] LABS: CK-MB VALUE MASS 4.5 NG/ML (<3.6)
[2022-07-01 06:14] LABS: ALBUMIN 3.5 G/DL (3.2-5.2); ALKALINE PHOSPHATASE 189 U/L (46-116); ALT/SGPT 80 U/L (7.0-40); AST/SGOT 75 U/L (<34); BILIRUBIN,TOTAL 0.3 MG/DL (0.3-1.2); BLOOD UREA NITROGEN 57 MG/DL (9-23); CALCIUM LEVEL 9.7 MG/DL (8.3-10.6); CARBON DIOXIDE LEVEL 24 MMOL/L (20-31); CHLORIDE LEVEL 100 MMOL/L (98-107); CPK CREATINE PHOSPHOKINASE 51 U/L (46-171); GLOMERULAR FILTRATION RATE > 60.0 (>42); GLUCOSE, FASTING 101 MG/DL (74-106); MB/CK RELATIVE INDEX 8.82 (< OR =4); POTASSIUM SERUM 4.9 MMOL/L (3.5-5.1); SODIUM LEVEL 137 MMOL/L (136-145); TOTAL PROTEIN 8.4 G/DL (5.7-8.2)
[2022-07-01 06:56] LABS: APPEARANCE, URINE MANUAL HAZY (CLEAR); COLOR, URINE MANUAL LT YELLOW (YELLOW)
[2022-07-01 06:57] LABS: BILIRUBIN, URINE MANUAL NEGATIVE (NEGATIVE); BLOOD URINE MANUAL POSITIVE (NEGATIVE); GLUCOSE, URINE (UA) MANUAL NEGATIVE (NEGATIVE); KETONE, URINE MANUAL NEGATIVE (NEGATIVE); LEUKOCYTE ESTERASE, URINE MAN POSITIVE (NEGATIVE); NITRITE, URINE MANUAL NEGATIVE (NEGATIVE); PROTEIN, URINE MANUAL NEGATIVE (NEGATIVE); SPECIFIC GRAVITY,URINE MANUAL 1.005 (1.002-1.035); UROBILINOGEN, URINE MANUAL NORMAL (NORMAL)
[2022-07-01 07:04] LABS: WBC, URINE 30-40 /hpf (0-3)
[2022-07-01 07:06] LABS: AMORPHOUS SEDIMENT, URINE SMALL AMOUNT (NEGATIVE); BACTERIA, URINE NONE SEEN; HYALINE CAST, URINE NONE SEEN /lpf (0-1); MUCUS, URINE SMALL AMOUNT (NEGATIVE); RENAL EPITHELIAL CELLS, URINE SMALL AMOUNT /hpf; SQUAMOUS EPITHELIAL CELL URINE NONE SEEN /hpf (SMALL AMT)
[2022-07-01 07:29] LABS: CK-MB VALUE MASS 4.4 NG/ML (<3.6)
[2022-07-01 07:30] LABS: MB/CK RELATIVE INDEX 8.14 (< OR =4)
[2022-07-01] MEDS ORDERED: ISOVUE-370 76% 100ML VIAL As Ordered ONE (07:56)
[2022-07-01] MEDS ORDERED: PIPERACILLIN/TAZOBACTAM SOD 3.375 GM in D5W MINI-BAG PLUS 50 ML IV ONE (08:55)
[2022-07-01] MEDS ORDERED: AMLO1TAB25 PO (09:32)
[2022-07-01] MEDS ORDERED: VALS1TAB66 PO (09:32)
[2022-07-01] MEDS ORDERED: HYDR-3910 PO (09:32)
[2022-07-01] MEDS ORDERED: CELE10TA PO (09:32)
[2022-07-01] MEDS ORDERED: FURO40TA2 PO (09:32)
[2022-07-01] MEDS ORDERED: METF-839 PO (09:32)
[2022-07-01] MEDS ORDERED: MAGN1TAB26 PO (09:32)
[2022-07-01] MEDS ORDERED: HOME MED LIST COMPLETE! XX SCH (09:35)
[2022-07-01] MEDS ORDERED: IPRATROPIUM 0.5MG/ALBUTEROL 2.5MG INH SOL UD 3ML (DUONEB) NEB PRN (09:55)
[2022-07-01] MEDS ORDERED: GLUCOSE 4GM CHEW TABLET PO PRN (09:55)
[2022-07-01] MEDS ORDERED: GLUCAGON INJ 1MG VIAL SC PRN (09:55)
[2022-07-01] MEDS ORDERED: DEXTROSE 50% 50ML SYRINGE IV PRN (09:55)
[2022-07-01] MEDS ORDERED: FOSFOMYCIN TROMETHAMINE 3 GM POWDER PACKET (MONUROL) PO SCH (14:50)
[2022-07-01] MEDS: VALSARTAN 80 MG TAB (DIOVAN) PO SCH (15:55)
[2022-07-01] MEDS: ATORVASTATIN 20 MG TAB PO SCH (15:55)
[2022-07-01] MEDS: predniSONE 20 MG TAB PO SCH (15:55)
[2022-07-01 16:35] VITALS: O2SAT 98
[2022-07-01] MEDS: IPRATROPIUM 0.5MG/ALBUTEROL 2.5MG INH SOL UD 3ML (DUONEB) NEB SCH ×2 (16:35→20:28)
[2022-07-01 16:44] VITALS: O2SAT 97
[2022-07-01] MEDS: **hydrALAZINE HCL** 25 MG TAB PO SCH (16:46)
[2022-07-01] MEDS: INSULIN LISPRO (NovoLOG) PER UNIT SC SCH ×3 (16:46→23:58)
[2022-07-01] MEDS: PIPERACILLIN/TAZOBACTAM SOD 3.375 GM in D5W MINI-BAG PLUS 50 ML IV SCH (17:15)
[2022-07-02] VITALS (7 sets, daily range): BP systolic 112–131; BP diastolic 55–70; O2SAT 91
[2022-07-02] MEDS: PIPERACILLIN/TAZOBACTAM SOD 3.375 GM in D5W MINI-BAG PLUS 50 ML IV SCH ×5 (00:22→21:31)
[2022-07-02] MEDS: FLUTICASONE PROP 0.05% NASAL SPRAY 16 GM (FLONASE) NARES SCH ×3 (00:22→20:38)
[2022-07-02] MEDS: LACTIC ACID 12% LOTION 225 GM BTL TOP SCH ×3 (00:23→20:38)
[2022-07-02] MEDS: DOCUSATE SODIUM 100MG CAPSULE PO SCH ×3 (00:24→20:36)
[2022-07-02] MEDS: CitaloPRAM (CeleXA) 10 MG TABLET PO SCH ×2 (00:24→20:37)
[2022-07-02] MEDS: BACLOFEN 10 MG TAB PO SCH ×3 (00:24→20:37)
[2022-07-02] MEDS: oxyBUTYnin 5 MG TAB PO SCH ×3 (00:25→20:37)
[2022-07-02] MEDS: **hydrALAZINE HCL** 25 MG TAB PO SCH ×4 (00:25→20:46)
[2022-07-02] MEDS: ASPIRIN 81MG ENTERIC TABLET PO SCH ×2 (00:31→20:37)
[2022-07-02] MEDS: IPRATROPIUM 0.5MG/ALBUTEROL 2.5MG INH SOL UD 3ML (DUONEB) NEB SCH ×4 (02:38→20:11)
[2022-07-02 07:27] LABS: HEMATOCRIT 38.4 % (42.0-52.0); MEAN CORPUSCULAR HEMOGLOBIN 24.7 pg (27.0-33.0); MEAN CORPUSCULAR HGB CONC 31.3 g/dl (32.0-36.5); PLATELET COUNT, AUTOMATED 177 10^3/uL (150-450); RED BLOOD COUNT 4.86 10^6/uL (4.30-6.10); WHITE BLOOD COUNT 7.6 10^3/uL (4.0-10.0)
[2022-07-02 08:21] LABS: CALCIUM LEVEL 9.4 MG/DL (8.3-10.6); CREATININE FOR GFR 1.3 MG/DL (0.70-1.30); GLOMERULAR FILTRATION RATE 56.7 (>42); POTASSIUM SERUM 4.9 MMOL/L (3.5-5.1)
[2022-07-02] MEDS: FUROSEMIDE 40 MG TAB PO SCH (08:55)
[2022-07-02] MEDS: INSULIN LISPRO (NovoLOG) PER UNIT SC SCH ×4 (08:55→21:31)
[2022-07-02] MEDS: predniSONE 20 MG TAB PO SCH (08:56)
[2022-07-02] MEDS: OMEPRAZOLE 20MG CAP PO SCH (08:56)
[2022-07-02] MEDS: VALSARTAN 80 MG TAB (DIOVAN) PO SCH (08:57)
[2022-07-02] MEDS: ENOXAPARIN 40MG/0.4ML SYRINGE (J1650 PER 10MG) SC SCH (08:58)
[2022-07-02] MEDS: MIRALAX *UNIT DOSE* 17GM PACKET PO SCH (09:15)
[2022-07-03] MEDS: IPRATROPIUM 0.5MG/ALBUTEROL 2.5MG INH SOL UD 3ML (DUONEB) NEB SCH ×4 (01:28→19:21)
[2022-07-03 01:57] VITALS: BP 119/58
[2022-07-03] MEDS: PIPERACILLIN/TAZOBACTAM SOD 3.375 GM in D5W MINI-BAG PLUS 50 ML IV SCH ×4 (04:15→21:48)
[2022-07-03 05:35] VITALS: BP 124/60
[2022-07-03 06:21] LABS: HEMATOCRIT 34.3 % (42.0-52.0); HEMOGLOBIN 10.7 g/dl (13.5-17.5); MEAN CORPUSCULAR HEMOGLOBIN 24.7 pg (27.0-33.0); MEAN CORPUSCULAR HGB CONC 31.2 g/dl (32.0-36.5); PLATELET COUNT, AUTOMATED 168 10^3/uL (150-450); RED BLOOD COUNT 4.34 10^6/uL (4.30-6.10); WHITE BLOOD COUNT 6.5 10^3/uL (4.0-10.0)
[2022-07-03 06:45] LABS: CALCIUM LEVEL 9.6 MG/DL (8.3-10.6); CREATININE FOR GFR 1.4 MG/DL (0.70-1.30); POTASSIUM SERUM 4.7 MMOL/L (3.5-5.1)
[2022-07-03 07:43] VITALS: O2SAT 93
[2022-07-03] MEDS: **hydrALAZINE HCL** 25 MG TAB PO SCH ×3 (09:00→21:00)
[2022-07-03] MEDS: MIRALAX *UNIT DOSE* 17GM PACKET PO SCH (09:10)
[2022-07-03] MEDS: INSULIN LISPRO (NovoLOG) PER UNIT SC SCH ×4 (09:10→20:37)
[2022-07-03] MEDS: VALSARTAN 80 MG TAB (DIOVAN) PO SCH (09:11)
[2022-07-03] MEDS: oxyBUTYnin 5 MG TAB PO SCH ×2 (09:11→20:37)
[2022-07-03] MEDS: ATORVASTATIN 20 MG TAB PO SCH (09:11)
[2022-07-03] MEDS: predniSONE 20 MG TAB PO SCH (09:11)
[2022-07-03] MEDS: DOCUSATE SODIUM 100MG CAPSULE PO SCH ×2 (09:11→20:36)
[2022-07-03] MEDS: OMEPRAZOLE 20MG CAP PO SCH (09:12)
[2022-07-03] MEDS: FUROSEMIDE 40 MG TAB PO SCH (09:12)
[2022-07-03] MEDS: BACLOFEN 10 MG TAB PO SCH ×2 (09:12→20:36)
[2022-07-03] MEDS: LACTIC ACID 12% LOTION 225 GM BTL TOP SCH ×2 (09:12→20:38)
[2022-07-03] MEDS: FLUTICASONE PROP 0.05% NASAL SPRAY 16 GM (FLONASE) NARES SCH ×2 (09:12→20:38)
[2022-07-03] MEDS ORDERED: LIDOCAINE 1% MDV 20ML VIAL As Ordered ONE (13:02)
[2022-07-03 14:00] VITALS: BP 125/65
[2022-07-03] MEDS: ASPIRIN 81MG ENTERIC TABLET PO SCH (20:36)
[2022-07-03] MEDS: CitaloPRAM (CeleXA) 10 MG TABLET PO SCH (20:36)
[2022-07-03] MEDS ORDERED: INSULIN LISPRO (NovoLOG) PER UNIT SC ONE (21:55)
[2022-07-03] MEDS: ACETAMINOPHEN TAB 650MG DOSE (2X325MG) PO PRN (22:31)
[2022-07-04] MEDS: PIPERACILLIN/TAZOBACTAM SOD 3.375 GM in D5W MINI-BAG PLUS 50 ML IV SCH ×4 (03:39→21:27)
[2022-07-04 06:27] VITALS: BP 134/68
[2022-07-04 06:34] LABS: HEMATOCRIT 33.7 % (42.0-52.0); HEMOGLOBIN 10.6 g/dl (13.5-17.5); MEAN CORPUSCULAR HEMOGLOBIN 24.7 pg (27.0-33.0); MEAN CORPUSCULAR HGB CONC 31.5 g/dl (32.0-36.5); MEAN CORPUSCULAR VOLUME 78.6 fl (80.0-96.0); PLATELET COUNT, AUTOMATED 170 10^3/uL (150-450); RED BLOOD COUNT 4.29 10^6/uL (4.30-6.10); WHITE BLOOD COUNT 9.7 10^3/uL (4.0-10.0)
[2022-07-04 07:01] LABS: CALCIUM LEVEL 9.3 MG/DL (8.3-10.6); CREATININE FOR GFR 1.28 MG/DL (0.70-1.30); GLOMERULAR FILTRATION RATE 57.7 (>42); POTASSIUM SERUM 4.6 MMOL/L (3.5-5.1)
[2022-07-04] MEDS: INSULIN LISPRO (NovoLOG) PER UNIT SC SCH ×4 (07:30→21:36)
[2022-07-04] MEDS: IPRATROPIUM 0.5MG/ALBUTEROL 2.5MG INH SOL UD 3ML (DUONEB) NEB SCH ×3 (08:01→18:10)
[2022-07-04] MEDS: **hydrALAZINE HCL** 25 MG TAB PO SCH ×3 (09:00→21:00)
[2022-07-04] MEDS ORDERED: FOSFOMYCIN TROMETHAMINE 3 GM POWDER PACKET (MONUROL) PO SCH (09:00)
[2022-07-04] MEDS: FUROSEMIDE 40 MG TAB PO SCH (09:55)
[2022-07-04] MEDS: predniSONE 20 MG TAB PO SCH (09:55)
[2022-07-04] MEDS: VALSARTAN 80 MG TAB (DIOVAN) PO SCH (09:55)
[2022-07-04] MEDS: OMEPRAZOLE 20MG CAP PO SCH (09:56)
[2022-07-04] MEDS: MIRALAX *UNIT DOSE* 17GM PACKET PO SCH (09:56)
[2022-07-04] MEDS: DOCUSATE SODIUM 100MG CAPSULE PO SCH ×2 (09:56→21:29)
[2022-07-04] MEDS: oxyBUTYnin 5 MG TAB PO SCH ×2 (09:56→21:29)
[2022-07-04] MEDS: BACLOFEN 10 MG TAB PO SCH ×2 (09:56→21:29)
[2022-07-04] MEDS: ATORVASTATIN 20 MG TAB PO SCH (09:56)
[2022-07-04] MEDS: LACTIC ACID 12% LOTION 225 GM BTL TOP SCH ×2 (09:57→21:32)
[2022-07-04] MEDS: FLUTICASONE PROP 0.05% NASAL SPRAY 16 GM (FLONASE) NARES SCH ×2 (09:57→21:32)
[2022-07-04] MEDS: ENOXAPARIN 40MG/0.4ML SYRINGE (J1650 PER 10MG) SC SCH (09:57)
[2022-07-04 14:00] VITALS: BP 147/65
[2022-07-04] MEDS ORDERED: PILL CUTTER 1 EACH XX PRN (19:05)
[2022-07-04 21:28] VITALS: BP 139/71
[2022-07-04] MEDS: CitaloPRAM (CeleXA) 10 MG TABLET PO SCH (21:29)
[2022-07-04] MEDS: ASPIRIN 81MG ENTERIC TABLET PO SCH (21:29)
[2022-07-04] MEDS: LEVEMIR (INSULIN DETEMIR) 1 UNITS/0.01ML SC SCH (21:31)
[2022-07-05] MEDS: IPRATROPIUM 0.5MG/ALBUTEROL 2.5MG INH SOL UD 3ML (DUONEB) NEB SCH ×4 (02:18→20:00)
[2022-07-05] MEDS: PIPERACILLIN/TAZOBACTAM SOD 3.375 GM in D5W MINI-BAG PLUS 50 ML IV SCH ×2 (03:38→10:41)
[2022-07-05 05:52] VITALS: BP 132/71
[2022-07-05 07:25] LABS: HEMATOCRIT 35.3 % (42.0-52.0); HEMOGLOBIN 11.2 g/dl (13.5-17.5); MEAN CORPUSCULAR HGB CONC 31.7 g/dl (32.0-36.5); MEAN CORPUSCULAR VOLUME 78.8 fl (80.0-96.0); PLATELET COUNT, AUTOMATED 172 10^3/uL (150-450); RED BLOOD COUNT 4.48 10^6/uL (4.30-6.10); WHITE BLOOD COUNT 9.9 10^3/uL (4.0-10.0)
[2022-07-05 07:55] LABS: CALCIUM LEVEL 9.4 MG/DL (8.3-10.6); CREATININE FOR GFR 1.28 MG/DL (0.70-1.30); GLOMERULAR FILTRATION RATE 57.7 (>42); POTASSIUM SERUM 4.1 MMOL/L (3.5-5.1)
[2022-07-05] MEDS: VALSARTAN 80 MG TAB (DIOVAN) PO SCH (08:39)
[2022-07-05] MEDS: predniSONE 20 MG TAB PO SCH (08:39)
[2022-07-05] MEDS: RIVAROXABAN 10MG TAB (XARELTO) PO SCH ×2 (08:39→18:01)
[2022-07-05] MEDS: oxyBUTYnin 5 MG TAB PO SCH ×2 (08:40→22:11)
[2022-07-05] MEDS: FUROSEMIDE 40 MG TAB PO SCH (08:40)
[2022-07-05] MEDS: OMEPRAZOLE 20MG CAP PO SCH (08:40)
[2022-07-05] MEDS: BACLOFEN 10 MG TAB PO SCH ×2 (08:40→22:10)
[2022-07-05] MEDS: **hydrALAZINE HCL** 25 MG TAB PO SCH ×3 (08:40→22:10)
[2022-07-05] MEDS: INSULIN LISPRO (NovoLOG) PER UNIT SC SCH ×4 (08:41→22:12)
[2022-07-05] MEDS: DOCUSATE SODIUM 100MG CAPSULE PO SCH ×2 (08:41→22:10)
[2022-07-05] MEDS: FLUTICASONE PROP 0.05% NASAL SPRAY 16 GM (FLONASE) NARES SCH ×2 (08:42→22:14)
[2022-07-05] MEDS: MIRALAX *UNIT DOSE* 17GM PACKET PO SCH (08:42)
[2022-07-05] MEDS: LACTIC ACID 12% LOTION 225 GM BTL TOP SCH ×2 (08:42→22:13)
[2022-07-05] MEDS ORDERED: ISOVUE-370 76% 100ML VIAL As Ordered ONE (13:01)
[2022-07-05 14:00] VITALS: BP 130/73
[2022-07-05 21:36] VITALS: BP 127/75
[2022-07-05] MEDS: AUGMENTIN 875 MG TAB PO SCH (22:09)
[2022-07-05] MEDS: ASPIRIN 81MG ENTERIC TABLET PO SCH (22:11)
[2022-07-05] MEDS: LEVEMIR (INSULIN DETEMIR) 1 UNITS/0.01ML SC SCH (22:11)
[2022-07-05] MEDS: CitaloPRAM (CeleXA) 10 MG TABLET PO SCH (22:11)
[2022-07-06] MEDS: IPRATROPIUM 0.5MG/ALBUTEROL 2.5MG INH SOL UD 3ML (DUONEB) NEB SCH ×5 (03:04→23:13)
[2022-07-06 06:49] VITALS: BP 148/75
[2022-07-06 07:00] LABS: INR 1.1; PROTHROMBIN TIME 14.4 SECONDS (12.5-14.5)
[2022-07-06 07:01] LABS: HEMATOCRIT 33.2 % (42.0-52.0); HEMOGLOBIN 10.6 g/dl (13.5-17.5); MEAN CORPUSCULAR HEMOGLOBIN 25.3 pg (27.0-33.0); MEAN CORPUSCULAR HGB CONC 31.9 g/dl (32.0-36.5); MEAN CORPUSCULAR VOLUME 79.2 fl (80.0-96.0); PARTIAL THROMBOPLASTIN TIME 34.3 SECONDS (24.8-34.2); PLATELET COUNT, AUTOMATED 204 10^3/uL (150-450); RED BLOOD COUNT 4.19 10^6/uL (4.30-6.10); WHITE BLOOD COUNT 9.7 10^3/uL (4.0-10.0)
[2022-07-06 07:15] LABS: LDH LACTATE DEHYDROGENASE 242 U/L (120-246)
[2022-07-06 07:16] LABS: ALBUMIN 2.8 G/DL (3.2-5.2); ALKALINE PHOSPHATASE 180 U/L (46-116); ALT/SGPT 248 U/L (7.0-40); AST/SGOT 136 U/L (<34); BILIRUBIN,DIRECT 0.2 MG/DL (<0.4); BILIRUBIN,TOTAL 0.4 MG/DL (0.3-1.2); CALCIUM LEVEL 9.5 MG/DL (8.3-10.6); CREATININE FOR GFR 1.37 MG/DL (0.70-1.30); GLOMERULAR FILTRATION RATE 53.4 (>42); IRON (FE) 80 UG/DL (65-175); POTASSIUM SERUM 4.2 MMOL/L (3.5-5.1); TOTAL PROTEIN 7.3 G/DL (5.7-8.2); TOTAL PROTEIN 7.3 GM/DL (6.4-8.2)
[2022-07-06 07:21] LABS: FOLATE 10.43 NG/ML (>5.4); VITAMIN B12 LEVEL 733 PG/ML (211-911)
[2022-07-06 07:32] LABS: HEPATITIS B SURFACE ANTIGEN NEGATIVE (NEGATIVE)
[2022-07-06 07:53] LABS: HEPATITIS B CORE ANTIBODY IGM NEGATIVE (NEGATIVE); HEPATITIS C VIRUS ABY INDEX 0.2 INDEX (<0.8)
[2022-07-06 08:45] LABS: ABG BASE EXCESS 2.9 (-2.0-2.0); ABG HCO3 26.8 MEQ/L (22.0-26.0); ABG O2 SATURATION 90.6 % (95.0-99.0); ABG PARTIAL PRESSURE CO2 38.4 mmHg (35.0-45.0); ABG PARTIAL PRESSURE O2 58.8 mmHg (75.0-100.0); ABG STANDARD HCO3 26.9 MEQ/L (22.0-26.0); ABG TOTAL CO2 27.9 MEQ/L (23.0-31.0); ABG pH (ARTERIAL) 7.461 UNITS (7.350-7.450)
[2022-07-06] MEDS ORDERED: FUROSEMIDE 20MG/2ML VIAL IV SCH (09:00)
[2022-07-06] MEDS: VALSARTAN 80 MG TAB (DIOVAN) PO SCH (09:31)
[2022-07-06] MEDS: DOCUSATE SODIUM 100MG CAPSULE PO SCH ×2 (09:31→20:15)
[2022-07-06] MEDS: predniSONE 20 MG TAB PO SCH (09:32)
[2022-07-06] MEDS: oxyBUTYnin 5 MG TAB PO SCH ×2 (09:32→20:15)
[2022-07-06] MEDS: RIVAROXABAN 10MG TAB (XARELTO) PO SCH ×2 (09:32→18:40)
[2022-07-06] MEDS: OMEPRAZOLE 20MG CAP PO SCH (09:32)
[2022-07-06] MEDS: **hydrALAZINE HCL** 25 MG TAB PO SCH ×3 (09:33→20:14)
[2022-07-06] MEDS: AZITHROMYCIN 250MG TABLET PO SCH (09:33)
[2022-07-06] MEDS: AUGMENTIN 875 MG TAB PO SCH (09:34)
[2022-07-06] MEDS: FLUTICASONE PROP 0.05% NASAL SPRAY 16 GM (FLONASE) NARES SCH ×2 (09:34→21:00)
[2022-07-06] MEDS: MIRALAX *UNIT DOSE* 17GM PACKET PO SCH (09:34)
[2022-07-06] MEDS: LACTIC ACID 12% LOTION 225 GM BTL TOP SCH ×2 (09:35→21:00)
[2022-07-06] MEDS: BACLOFEN 10 MG TAB PO SCH ×2 (09:35→20:15)
[2022-07-06] MEDS: INSULIN LISPRO (NovoLOG) PER UNIT SC SCH ×4 (09:40→20:17)
[2022-07-06] MEDS: ACETAMINOPHEN TAB 650MG DOSE (2X325MG) PO PRN (12:31)
[2022-07-06] MEDS: CEFEPIME HCL 2 GM in D5W MINI-BAG PLUS 50 ML IV SCH (12:39)
[2022-07-06 13:00] VITALS: O2SAT 91
[2022-07-06] MEDS ORDERED: methylPREDNISolone 125MG 2ML VIAL IV ONE (13:00)
[2022-07-06 13:40] VITALS: BP 123/63
[2022-07-06] MEDS: VANCOMYCIN HCL 1,000 MG, VIAL MATE ADAPTER 1 EACH in D5W 250 ML IV SCH (13:50)
[2022-07-06 13:53] LABS: MB/CK RELATIVE INDEX 7.4 (< OR =4)
[2022-07-06 14:00] VITALS: O2SAT 100
[2022-07-06 16:00] VITALS: BP 114/59
[2022-07-06] MEDS ORDERED: SODIUM CHLORIDE HYPERTONIC 3% 15ML NEB SOL INH ONE (16:00)
[2022-07-06 20:00] VITALS: BP_SYST 102; BP_SYST 95; BP_DIAS 51; BP_DIAS 59
[2022-07-06] MEDS: CitaloPRAM (CeleXA) 10 MG TABLET PO SCH (20:16)
[2022-07-06] MEDS: ASPIRIN 81MG ENTERIC TABLET PO SCH (20:16)
[2022-07-06] MEDS ORDERED: LEVEMIR (INSULIN DETEMIR) 1 UNITS/0.01ML SC SCH (21:00)
[2022-07-07] VITALS: BP 97/51
[2022-07-07] MEDS: CEFEPIME HCL 2 GM in D5W MINI-BAG PLUS 50 ML IV SCH (00:09)
[2022-07-07] MEDS: VANCOMYCIN HCL 1,000 MG, VIAL MATE ADAPTER 1 EACH in D5W 250 ML IV SCH (02:07)
[2022-07-07] MEDS: IPRATROPIUM 0.5MG/ALBUTEROL 2.5MG INH SOL UD 3ML (DUONEB) NEB SCH ×3 (03:05→11:22)
[2022-07-07 04:00] VITALS: BP 102/59
[2022-07-07 06:27] LABS: HEMATOCRIT 30.1 % (42.0-52.0); HEMOGLOBIN 9.6 g/dl (13.5-17.5); MEAN CORPUSCULAR HEMOGLOBIN 25.5 pg (27.0-33.0); MEAN CORPUSCULAR HGB CONC 31.9 g/dl (32.0-36.5); MEAN CORPUSCULAR VOLUME 79.8 fl (80.0-96.0); PLATELET COUNT, AUTOMATED 194 10^3/uL (150-450); RED BLOOD COUNT 3.77 10^6/uL (4.30-6.10); WHITE BLOOD COUNT 10.1 10^3/uL (4.0-10.0)
[2022-07-07 06:32] LABS: CREATININE FOR GFR 1.59 MG/DL (0.70-1.30); GLOMERULAR FILTRATION RATE 44.9 (>42); POTASSIUM SERUM 4.1 MMOL/L (3.5-5.1)
[2022-07-07 08:00] VITALS: BP 155/74
[2022-07-07] MEDS ORDERED: methylPREDNISolone 40MG 1ML VIAL IV SCH (08:00)
[2022-07-07 08:41] LABS: ALBUMIN 2.9 G/DL (3.2-5.2); BILIRUBIN,DIRECT 0.1 MG/DL (<0.4); BILIRUBIN,TOTAL 0.4 MG/DL (0.3-1.2); TOTAL PROTEIN 7.4 G/DL (5.7-8.2)
[2022-07-07] MEDS: MIRALAX *UNIT DOSE* 17GM PACKET PO SCH (09:00)
[2022-07-07] MEDS: LACTIC ACID 12% LOTION 225 GM BTL TOP SCH ×2 (09:00→21:00)
[2022-07-07] MEDS: DOCUSATE SODIUM 100MG CAPSULE PO SCH ×2 (09:17→21:00)
[2022-07-07 09:18] VITALS: BP 155/74
[2022-07-07] MEDS: BACLOFEN 10 MG TAB PO SCH ×2 (09:18→21:00)
[2022-07-07] MEDS: oxyBUTYnin 5 MG TAB PO SCH (09:18)
[2022-07-07] MEDS: OMEPRAZOLE 20MG CAP PO SCH (09:18)
[2022-07-07] MEDS: **hydrALAZINE HCL** 25 MG TAB PO SCH (09:18)
[2022-07-07] MEDS: AZITHROMYCIN 250MG TABLET PO SCH (09:19)
[2022-07-07] MEDS: RIVAROXABAN 10MG TAB (XARELTO) PO SCH (09:24)
[2022-07-07] MEDS: INSULIN LISPRO (NovoLOG) PER UNIT SC SCH (09:25)
[2022-07-07] MEDS: FLUTICASONE PROP 0.05% NASAL SPRAY 16 GM (FLONASE) NARES SCH ×2 (09:25→21:00)
[2022-07-07 10:05] VITALS: O2SAT 92
[2022-07-07] MEDS ORDERED: MORPHINE 2 MG/ML 1ML VIAL IV PRN (12:35)
[2022-07-07] MEDS ORDERED: HYOSCYAMINE SULFATE 0.125 MG SUBL TABLET PO PRN (12:35)
[2022-07-07] MEDS ORDERED: SCOPOLAMINE 1MG TRANSDERMAL PATCH TOP PRN (12:35)
[2022-07-07] MEDS: CitaloPRAM (CeleXA) 10 MG TABLET PO SCH (21:00)
[2022-07-07] MEDS: LORazepam 2 MG/ML VIAL IV PRN (22:06)
[2022-07-08] MEDS: LORazepam 2 MG/ML VIAL IV PRN (00:25)
[2022-07-08] MEDS: MORPHINE 2 MG/ML 1ML VIAL IV PRN ×2 (00:26→01:41)
[2022-07-09 14:04] LABS: ALBUMIN % 43.8 % (55.8-66.1); ALPHA-1-GLOBULIN % 6.6 % (2.9-4.9); ALPHA-2-GLOBULINS % 10.3 % (7.1-11.8); BETA-1-GLOBULINS % 8.1 % (4.7-7.2)
[2022-07-09 14:05] LABS: ALPHA-1-GLOBULINS 0.48 GM/DL (0.17-0.41); ALPHA-2-GLOBULINS 0.75 GM/DL (0.42-0.99); BETA-1-GLOBULINS 0.59 GM/DL (0.28-0.60); BETA-2-GLOBULINS 0.68 GM/DL (0.19-0.55); BETA-2-GLOBULINS % 9.3 % (3.2-6.5); GAMMA GLOBULIN % 21.9 % (11.1-18.8)
[2022-07-09 14:10] LABS: IMMUNOTYPING SERUM IGA ABNORMAL (NORMAL); IMMUNOTYPING SERUM KAPPA ABNORMAL (NORMAL)
[2022-07-09 15:07] LABS: HAPTOGLOBIN 117 mg/dL (34-355); HEPATITIS B CORE ANTIBODY IGG Negative (Negative)
== END 2022-07-08 10:40 | disposition expired | DRG 196 ==
LOC: M ED 04:44 → EDBD 04:44 → M ED INP 09:53 → ENRESERV 07-02 11:30 → M MS5PR 07-02 12:05 → M PCU 07-06 13:29
PROVIDERS: ADMIT Family Medicine; ATTEND Internal Medicine Nephrology
PROC: 0FB13ZX Excision of Right Lobe Liver, Percutaneous Approach, Diagnostic (ICD-10-PCS; principal; 2022-07-03 10:00)
DX: J84.9 Interstitial pulmonary disease, unspecified (principal); J96.01 Acute respiratory failure with hypoxia; J15.9 Unspecified bacterial pneumonia; J69.0 Pneumonitis due to inhalation of food and vomit; C22.0 Liver cell carcinoma; I50.32 Chronic diastolic (congestive) heart failure; N39.0 Urinary tract infection, site not specified; N17.9 Acute kidney failure, unspecified; G35 Multiple sclerosis; Z66 Do not resuscitate; K75.81 Nonalcoholic steatohepatitis (NASH); E11.9 Type 2 diabetes mellitus without complications; G47.33 Obstructive sleep apnea (adult) (pediatric); I11.0 Hypertensive heart disease with heart failure; E78.5 Hyperlipidemia, unspecified; E55.9 Vitamin D deficiency, unspecified; R91.1 Solitary pulmonary nodule; N31.9 Neuromuscular dysfunction of bladder, unspecified; I71.40 Abdominal aortic aneurysm, without rupture, unspecified; D32.9 Benign neoplasm of meninges, unspecified; I25.10 Atherosclerotic heart disease of native coronary artery without angina pectoris; D50.9 Iron deficiency anemia, unspecified; I25.2 Old myocardial infarction; B18.2 Chronic viral hepatitis C; N40.0 Benign prostatic hyperplasia without lower urinary tract symptoms; R74.01 Elevation of levels of liver transaminase levels; Z79.01 Long term (current) use of anticoagulants; Z79.52 Long term (current) use of systemic steroids; Z79.899 Other long term (current) drug therapy; Z20.822 Contact with and (suspected) exposure to COVID-19; Z99.3 Dependence on wheelchair; Z87.440 Personal history of urinary (tract) infections; Z95.5 Presence of coronary angioplasty implant and graft; Z87.891 Personal history of nicotine dependence; K74.60 Unspecified cirrhosis of liver